=== PATIENT | female | born 1955 | race Caucasian/White ===

== ENCOUNTER 2022-12-16 09:36 | Outpatient (OUT) | payer MEDICARE, SELFPAY ==
[2022-12-16 11:54] LABS: Thyroid Stimulating Hormone 1.425 uIU/mL (0.358-3.740)
== END 2022-12-16 09:37 | disposition home or self-care (01) ==
LOC: LAB 09:39
PROVIDERS: PCP Family Medicine; Visit Provider Family Medicine
DX: L65.9 Nonscarring hair loss, unspecified (principal); R63.4 Abnormal weight loss
CPT/HCPCS: 36415; 84443

== ENCOUNTER 2023-02-27 10:32 | Outpatient (OUT) | payer MEDICARE, SELFPAY ==
[2023-02-27 11:46] LABS: Thyroid Stimulating Hormone 1.983 uIU/mL (0.358-3.740)
[2023-03-03 13:07] LABS: Methylmalonic Acid, Serum 164 nmol/L (0-378)
== END 2023-02-27 10:33 | disposition home or self-care (01) ==
LOC: LAB 10:36
PROVIDERS: PCP Family Medicine
DX: R41.3 Other amnesia (principal)
CPT/HCPCS: 36415; 82607; 82746; 83921; 84443

== ENCOUNTER 2023-03-19 07:33 | Outpatient (OUT) | payer MEDICARE, SELFPAY ==
--- NOTE | 2023-03-19 07:37 | MR_ITS ---
The [address] [address] Patient Name: ALETHA LIN MRN: [id number] date: 1955 Sex: F Assigned Patient Location: MRI Current Patient Location: MRI Accession/Order Number: [id number] Exam Date: 03/19/2023 07:45 Report Date: 03/19/2023 08:24 At the request of: LAUREN WHITE Procedure: MR head/brain wo con MR head/brain wo con, 03/19/2023 7:45 AM EST INDICATION: Post Concussion Syndrome, Memory Changes, Frequent Headaches COMPARISON: There is no appropriate prior study for comparison. TECHNIQUE: Multiplanar, multisequential MRI images of brain were obtained without injection of contrast. FINDINGS: The cerebral sulci as well as ventricular system are appropriate for age. There is no restricted diffusion. Hyperintensities on T2 and FLAIR images in the haroon and land radiata and centrum semiovale with sparing of U fibers are nonspecific, statistically most likely consistent with microvascular ischemic changes. There is no intracranial mass, mass effect, midline shift, intra or extra-axial fluid collection or large hemorrhage. Normal flow-void in the intracranial vessels is noted. The visualized portions of orbits, mastoid air cells as well as paranasal sinuses are unremarkable. There is status post bilateral lens replacement. MR/MR head/brain wo con IMPRESSION: No acute intracranial process is noted. Moderate microvascular ischemic changes. Electronically authenticated by: ZEESHAN PALACIOS Date: 03/19/2023 08:24
== END 2023-03-19 07:34 | disposition home or self-care (01) ==
LOC: MRI 07:33
PROVIDERS: PCP Family Medicine
DX: R51.9 Headache, unspecified (principal); F07.81 Postconcussional syndrome; R41.3 Other amnesia
CPT/HCPCS: 70551

== ENCOUNTER 2023-06-23 10:16 | Outpatient (OUT) | payer MEDICARE, SELFPAY ==
--- OUTSIDE RECORDS SUMMARY | 2023-06-23 10:24 | XMS_ITS | CCD ---
Author Name Unknown Address [address] [place] [address] Organization [facility] Care Team Providers Care Quality Tech Name Role Phone Desire Poole Unavailable [phone] DESIRE POOLE Unavailable Unavailab CHIKI Bagley Unavailable Autumn vailable CHIKI POOLE Unavailable Autumn vailable DESIRE POOLE Unavailable Unavailab le HAY, AMI Unavailable Unavailable HAY, AMI Unavailable Unavailable UNKNOWN, PROVIDER Unavailable Unavailable DESIRE POOLE Unavailable Unavailable ISIDRO LLOYD Unavailable Unavailable QUETAISIDRO Gurorla KRISTOPHER Unavailable Unavailable DESIRE POOLE Unavailable Unavailab le QUETAISIDRO KRISTOPHER Unavailable Unavailable RICKY SORIA Unavailable Unavailable ISIDRO LLOYD KRISTOPHER Unavailable Unavailable DESIRE POOLE Unavailable Unavailab DESIRE Bagley Unavailable Unavailab le Queta, J Kristopher Unavailable Unavailable Queta, J Kristopher Unavailable Unavailable Queta, J Kristopher Unavailable Unavailable Queta, J Kristopher Unavailable Unavailable Kovolyan, Payton K Unavailable NON-PATIENT FAIRS, BUCYRUS Unavailable Unava ilable NON-PATIENT FAIRS, BUCYRUS Unavailable Unava ilable KOVOLYAN, PAYTON K Unavailable Unavailable KOVOLYAN, PAYTON K Unavailable Unavailable RODRIGO CULP Unavailable Unavailable Kovolyan, Payton K Primary Care Provider KOVOLYAN, PAYTON K Attending Unavailable KOVOLYAN, PAYTON K Referring Unavailable KOVOLYAN, PAYTON K Attending Unavailable KOVOLYAN, PAYTON K Referring Unavailable KOVOLYAN, PAYTON K Attending Unavailable KOVOLYAN, PAYTON K Referring Unavailable KOVOLYAN, PAYTON K Attending Unavailable KOVOLYAN, PAYTON K Referring Unavailable KOVOLYAN, PAYTON K Primary Care Unavailable Karen Cardoso Primary Care Provider Chiki Poole Primary Care Provid er KAREN CARDOSO Primary Care Unavailable MARIAH, JAQUELINE Attending Unavailable Walker, Karen Unavailable DO Karen Cardoso Primary Care Provider [phone] MD Finn Ortez II Attending Provider Finn Ortez II Unavailable REQUEST, NONE LISTED Consulting Unavaila ble GIRAUSTEN, DR JONES Primary Care Unavailable GIRVIN, DR JONES Attending Unavailable GIRVIN, DR JONES Admitting Unavailable GIRVIN, DR JONES Primary Care Unavailable GIRVIN, DR JONES Consulting Unavailable GIRVIN, DR JONES Attending Unavailable GIRVIN, DR JONES Admitting Unavailable GIRVIN, DR JONES Primary Care Unavailable GIRVIN, DR JONES Consulting Unavailable GIRVIN, DR JONES Attending Unavailable GIRVIN, DR JONES Admitting Unavailable GIRVIN, DR JONES Primary Care Unavailable CARLOTA ., ROWENA Admitting Unavailable CARLOTA ., ROWENA Consulting Unavailable CARLOTA ., ROWENA Attending Unavailable KLRENATA, KAREN Consulting Unavailable ITKIN, DONYA Consulting Unavailable FRIEDMAN, ALMA Consulting Unavailable REQUEST, NONE LISTED Admitting Unavaila ble REQUEST, NONE LISTED Consulting Unavaila ble REQUEST, NONE LISTED Attending Unavaila ble WALKER, DR JONES Primary Care Unavailable REQUEST, NONE LISTED Admitting Unavaila ble REQUEST, NONE LISTED Consulting Unavaila ble REQUEST, NONE LISTED Attending Unavaila ble WALKER, DR JONES Primary Care Unavailable Walker, DO Jones Primary Care Provider [phone] MD Floyd Hampton Attending Provider [phone] MD Finn Ortez II Attending Provider [phone] Finn Ortez II Admitting UnavailFinn Pandya II Attending Unavailabl e Karen Cardoso Primary Care Unavailable Finn Ortez II Attending Unavailabl e Karen Cardoso Primary Care Unavailable Finn Ortez II Admitting Unavailgeoffrey e Walker, Karen Primary Care Unavailable Floyd Hampton Admitting Unavailab Floyd Solis Attending UnavailSHERYL Roldan Attending Unavailable KAREN CARDOSO Referring Unavailable Allergies Allergy Classification Reported Allergen(s) Allergy Type Date of Onset Reaction(s) Facility (20 sources) acetaminophen / oxyCODONE; Translations: [OXYCODONE-ACETAM INOPHEN] Drug Allergy 5 Itching [facility] (20 sources) Acetaminophen / oxyCODONE; Translations: [Percocet] Drug Allergy 3 [facility] (19 sources) DULoxetine Drug Allergy headaches [employer] [facility] Other (19 sources) FLUoxetine Drug Allergy doesn't work [employer] [facility] Other (3 sources) Acetaminophen; Translations: [acetaminophen] Drug Allergy 4 [facility] (3 sources) DULoxetine; Translations: [duloxetine] Drug Allergy 4 [facility] (3 sources) FLUoxetine; Translations: [fluoxetine] Drug Allergy [address] [facility] (3 sources) oxyCODONE; Translations: [oxycodone] Drug Allergy 4 [facility] Medications Current Medications Medication Drug Class(es) Dates Sig (Normalized) Sig (Original) 0.5 ml bordetella pertussis filamentous hemagglutinin vaccine, inactivated 0.016 mg/ml / bordetella pertussis pertactin vaccine, inactivated 0.005 mg/ml / bordetella pertussis toxoid vaccine, inactivated 0.016 mg/ml / diphtheria toxoid vaccine, inactivated 5 unt/ml / tetanus toxoid vaccine, inactivated 10 unt/ml prefilled syringe (7 sources) Inactivated Corynebacterium Diphtheriae Vaccine, Inactivated Clostridium Tetani Vaccine Start: 03-10-2017 BOOSTRIX TDAP 2.5-8-5 Lf-mcg-Lf/0.5mL Syrg Inject 1 mL into the shoulder, thigh, or buttocks once. 03/10/2017 Active ascorbic acid 500 mg oral tablet (16 sources) Vitamin C take 1 tablet by mouth every month ascorbic acid 500 MG Tab take 500 mg by mouth.. 0 Active atorvastatin 10 mg oral tablet (4 sources) HMG-CoA Reductase Inhibitor Start: 12-06-2021 take 1 tablet by mouth every twenty-four hours Atorvastatin Calcium 10 MG 1 tablet Orally Once a day Nov, Active busPIRone hydrochloride 10 mg oral tablet (18 sources) Start: 03-30-2018 End: 05-11-2018 take 1 tablet by mouth three times daily as needed busPIRone 10 MG Tab tablet Indications: Anxiety Take 1 tablet by mouth 3 times daily as needed. 90 tablet 1 05/11/2018 Active Start: 03-03-2018 End: 03-30-2018 take 1 tablet by mouth three times daily busPIRone 5 MG Tab Indications: Anxiety Take 1 tablet by mouth 3 times daily. 60 tablet 0 03/03/2018 03/30/2018 Discontinued Calcium (20 sources) Phosphate Binder, Calcium Calciu m Active Calcium 150 MG T ab Take by mouth daily. 0 Active take 1 tablet by mouth once andrey y Calcium 150 MG Tab Take by mouth daily. Active dexamethasone 1 mg/ml / tobramycin 3 mg/ml ophthalmic suspension (5 sources) Aminoglycoside Antibacterial, Corticosteroid Start: 07-27-2018 End: 08-03-2018 tobramycin-dexamethasone 0.3-0.1 % Suspension 2 drops to bilateral ears tid 1 Bottle 0 07/27/2018 Active estradiol 0.01 mg vaginal tablet (8 sources) Estrogen Start: 06-09-2017 YUVAFEM 10 mcg Tab Insert 1 (one) tablet (10 mcg total) into the vagina once a week. 12 tablet 0 06/09/2017 Active estrogens, conjugated ([facility]) 0.625 mg/ml vaginal cream (16 sources) Estrogen Start: 02-17-2020 Premarin 0.625 MG/GM Cream INSERT 0.5 GRAM VAGINALLY AT BEDTIME FOR 2 WEEKS THEN 2 TO 3 TIMES A WEEK THERAFTER 0 02/17/2020 Active Premarin 0.625 M G/GM Vaginal for 30 Not-Taking FLUoxetine 40 mg oral capsule (10 sources) Serotonin Reuptake Inhibitor Start: 05-27-2017 End: 05-27-2018 take 1 capsule by mouth once daily FLUoxetine (PROZAC) 40 MG capsule Indications: Anxiety , Depression, unspecified depression type Take 1 (one) capsule (40 mg total) by mouth daily. 30 capsule 11 05/27/2017 05/27/2018 Active End: 03-26-2018 take 2 capsules by mouth once daily fluoxetine 20 MG Cap capsule Take 40 mg by mouth daily. 03/26/2018 Discontinued lamoTRIgine 100 mg oral tablet (20 sources) Mood Stabilizer, Anti-epileptic Agent Start: 06-13-2023 take 100 mg by mouth once daily Lamotrigine Active 100 MG PO Daily June 13, 2023 12:00am Start: 03-29-2020 take 1 tablet by anam once daily lamoTRIgine 100 MG tablet Take 100 mg by mouth daily. 0 03/29/2020 Active meloxicam 15 mg oral tablet (2 sources) Nonsteroidal Anti-inflammatory Drug Start: 06-13-2023 take 15 mg by mouth once daily Meloxicam Active 15 MG PO Daily 30 30 June 13, 2023 12:00am MULTIPLE VITAMIN PO (16 sources) MULTIPLE VITAMIN PO take by mouth.. 0 Active MULTIPLE VITAMIN PO take by mouth.. Active Multivitamin preparation (19 sources) Multivitamin Act esteban sildenafil 100 mg oral tablet (20 sources) Phosphodiesterase 5 Inhibitor Start: 03-31-20 18 take 1 tablet by mouth once daily as needed sildenafil (VIAGRA) 100 MG tablet Take 1 (one) tablet (100 mg total) by mouth daily as needed . 10 tablet 1 03/31/2018 Active simvastatin 20 mg oral tablet (20 sources) HMG-CoA Reductase Inhibitor Start: 06-13-19 24 take 20 mg by mouth once daily Simvastatin Active 20 MG PO Daily June 13, 2023 12:00am Start: 09-08-2016 End: 03-30-2018 take 1 tablet by mouth once daily in the evening simvastatin 20 MG Tab tablet Take 1 tablet by mouth every evening at 6 PM. 90 tablet 3 03/30/2018 Active therapeutic multivitamin (THERAGRAN) tablet (1 source) take 1 tablet by mouth once daily therapeutic multivitamin (THERAGRAN) tablet Take 1 tablet by mouth daily. 0 Active Therapeutic Multivitamin Tablet (7 sources) take 1 tablet by mouth once daily therapeutic multivitamin (THERAGRAN) tablet Take 1 tablet by mouth daily. Active 24 hr venlafaxine 37.5 mg extended release oral capsule (20 sources) Serotonin and Norepinephrine Reuptake Inhibitor Start: 06-13-19 24 take 37.5 mg by mouth once daily Venlafaxine Active 37.5 MG PO Daily June 13, 2023 12:00am Start: 02-01-2020 take 1 capsule by mo [facility] once daily venlafaxine 37.5 MG Cap SR 24HR capsule XR Take 37.5 mg by mouth daily. 0 02/01/2020 Active vortioxetine 20 mg oral tablet (20 sources) Start: 03-30-2018 End: 05-11-2018 take 1 tablet by mouth once daily Vortioxetine HBr 20 MG Tab Indications: Anxiety Take 1 tablet by mouth daily. 90 tablet 2 05/11/2018 Active Start: 03-30-2018 End: 05-11-2018 take 2 tablets by mouth once daily, then take 0.5 tablet by mouth vortioxetine (TRINTELLIX) 10 MG Tab tablet Take 2 tablets by mouth daily. Lot [id number], Exp 02/14 28 tablet 0 03/30/2018 05/11/2018 Discontinued Start: 03-03-2018 End: 03-30-2018 take 1 tablet by mouth once daily vortioxetine (TRINTELLIX) 10 MG Tab tablet Take 1 tablet by mouth daily. 30 tablet 2 03/26/2018 03/30/2018 Discontinued Start: 03-03-2018 End: 03-26-2018 take 1 tablet by mouth once daily, then take 0.4 tablet by mouth Vortioxetine HBr (TRINTELLIX) 5 MG Tab Take 1 tablet by mouth daily. Lot [id number], exp 12/15 14 tablet 03/03/2018 03/26/2018 Discontinued Completed/Discontinued Medications Medication Drug Class(es) Dates Sig (Normalized) Sig (Original) ALPRAZolam 0.25 mg oral tablet (5 sources) Benzodiazepine End: 03-30-2018 ALPRAZolam 0.25 MG Tab tablet Take 0.5 mg by mouth as needed for Sleep. 03/30/2018 Discontinued bupivacaine hydrochloride 5 mg/ml injectable solution (2 sources) Amide Local Anesthetic Start: 05-02-2020 End: 05-02-2020 bupivacaine (MARCAINE) 0.5 % injection 1 mL 1 ml dexamethasone phosphate 4 mg/ml injection (2 sources) Corticosteroid Start: 05-02-2020 End: 05-02-2020 dexAMETHasone (DECADRON) injection 4 mg 10 ml lidocaine hydrochloride 10 mg/ml injection (2 sources) Antiarrhythmic, Amide Local Anesthetic Start: 05-02-2020 End: 05-02-2020 lidocaine (XYLOCAINE) 10 mg/mL injection 4 mL ondansetron 4 mg disintegrating oral tablet (7 sources) Serotonin-3 Receptor Antagonist Start: 09-02-2022 Ondansetron 4 MG dissolve 1 tablet on the tongue Orally q8-12 hours prn August, Not-Taking/PRN penicillin v potassium 250 mg oral tablet (4 sources) End: 05-11-2018 take 1 tablet by mouth four times daily penicillin v potassium 250 MG Tab Take 250 mg by mouth 4 times daily. 05/11/2018 Discontinued 10 ml sodium chloride 9 mg/ml injection (2 sources) Start: 05-02-2020 End: 05-02-2020 sodium chloride (PF) 0.9 % injection 5 mL triamcinolone acetonide 40 mg/ml injectable suspension (14 sources) Corticosteroid Start: 07-12-2022 Kenalog-40 Apr, 120 mg Start: 05-02-2020 End: 05-02-2020 triamcinolone (KENALOG-40) i njection 2 mL Problems Active Problems Problem Classification Problem Date Documented Da te Episodic/Chronic Anxiety disorders (20 sources) Anxiety; Translations: [Anxiety disorder, unspecified] Onset: 03-05-2016 03-05-2016 Chronic Delirium, dementia, and amnestic and other cognitive disorders (8 sources) Postconcussion syndrome; Translations: [Postconcussional syndrome] Chronic Diabetes mellitus without complication (4 sources) Hyperglycemia, unspecified Onset: 12-06-2021 Resolved: 12-06-2021 Episodic Diseases of white blood cells (20 sources) Leukocytosis; Translations: [Elevated white blood cell count, unspecified] Onset: 12-06-2021 Resolved: 12-06-2021 Chronic Disorders of lipid metabolism (20 sources) Hyperlipidemia; Translations: [Hyperlipidemia, unspecified] Onset: 03-05-2016 Resolved: 12-06-2021 03-05-2016 Chronic E Codes: Fall (1 source) Fall (on) (from) unspecified stairs and steps, initial encounter; Translations: [FALL ON FROM UNS STAIRS STEPS INIT] Onset: 08-28-2022 Episodic Fracture of upper limb (10 sources) Unspecified fracture of the lower end of right radius, initial encounter for closed fracture; Translations: [Closed fracture of distal end of radius] Onset: 10-08-2017 10-09-2017 Episodic Mood disorders (20 sources) Depressive disorder; Translations: [Recurrent major depression in partial remission] Onset: 10-05-2015 Resolved: 12-06-2021 10-05-2015 Chronic Mood disorders (2 sources) Major depressive disorder, single episode, unspecified; Translations: [Major depressive disorder, single episode, unspecified] Onset: 10-05-2015 Osteoarthritis (18 sources) Osteoarthritis of right hip joint; Translations: [Unilateral primary osteoarthritis, right hip] Chronic Osteoarthritis (3 sources) Osteoarthritis of right hip joint; Translations: [Primary osteoarthritis of right hip] Other aftercare (8 sources) 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; Translations: [OTH SPEECH AND HEARING CLINIC DIRECTOR CURRENT DRUG THERAPY] Onset: 02-07-2022 Episodic Other connective tissue disease (7 sources) Presence of unspecified artificial hip joint; Translations: [Status post hip replacement] Onset: 09-25-2016 09-25-2016 Chronic Other connective tissue disease (5 sources) Trochanteric bursitis; Translations: [Trochanteric bursitis, right hip] 06-12-2023 Episodic Other connective tissue disease (5 sources) Trochanteric bursitis, right hip; Translations: [Enthesopathy of hip region] Episodic Other ear and sense organ disorders (2 sources) Decreased hearing ; Translations: [Unspecified hearing loss, unspecified ear] Chronic Other gastrointestinal disorders (19 sources) Irritable bowel syndrome; Translations: [Irritable bowel syndrome without diarrhea] Chronic Other injuries and conditions due to external causes (3 sources) Unspecified injury of head, initial encounter; Translations: [UNSPECIFIED INJURY HEAD INITIAL ENC] Onset: 08-27-2022 Episodic Other injuries and conditions due to external causes (1 source) Other specified injuries of head, initial encounter; Translations: [OTH SPEC INJURIES HEAD INITIAL ENC] Onset: 08-28-2022 Episodic Other non-traumatic joint disorders (2 sources) Pain in left wrist; Translations: [Pain in left wrist] Onset: 10-08-2017 Episodic Other non-traumatic joint disorders (2 sources) Pain in unspecified hip Onset: 12-06-2021 Resolved: 12-06-2021 Episodic Other non-traumatic joint disorders (2 sources) Pain in right hip Episodic Other non-traumatic joint disorders (1 source) Pain in left hip; Translations: [PAIN IN LEFT HIP] Onset: 08-28-2022 Episodic Other non-traumatic joint disorders (2 sources) Pain in right hip joint; Translations: [Right hip pain] Other nutritional; endocrine; and metabolic disorders (2 sources) Abnormal weight loss Onset: 12-06-2021 Resolved: 12-06-2021 Episodic Other nutritional; endocrine; and metabolic disorders (1 source) Abnormal weight gain Episodic Other skin disorders (1 source) Nonscarring hair loss, unspecified Episodic Residual codes; unclassified (6 sources) Amnesia; Translations: [Other amnesia] Episodic Residual codes; unclassified (1 source) Other amnesia Episodic Residual codes; unclassified (1 source) Decreased libido Episodic Superficial injury; contusion (4 sources) Contusion of right wrist, initial encounter; Translations: [Contusion of scalp, initial encounter] Onset: 09-15-2017 Episodic Unclassified (3 sources) Closed fracture of distal end of right radius, unspecified fracture morphology, initial encounter; Translations: [Closed fracture of right distal radius] Onset: 10-09-2017 10-09-2017 Unclassified (2 sources) Ear Pain; Translations: [Ear Pain] Onset: 07-27-2018 Unclassified (2 sources) Medication Refill; Translations: [Medication Refill] Onset: 03-30-2018 Unclassified (2 sources) Establish Care; Translations: [Establish Care] Onset: 03-03-2018 Unclassified (1 source) History of repair of hip joint; Translations: [Status post hip replacement] Onset: 09-25-2016 09-25-2016 Unclassified (1 source) Unilateral primary osteoarthritis, right hip; Translations: [Unilateral primary osteoarthritis, right hip] Onset: 06-13-2023 Unclassified (1 source) Pain in right hip; Translations: [Pain in right hip] Onset: 07-12-2022 Past or Other Problems Problem Classification Problem Date Documented Da te Episodic/Chronic Abdominal pain (16 sources) Pain in female pelvis; Translations: [Female pelvic pain] Onset: 10-23-2016 10-23-2016 Episodic Medical examination/evaluation (1 source) Laboratory examination, unspecified; Translations: [Laboratory examination, unspecified] Onset: 12-13-2014 Episodic Other ear and sense organ disorders (1 source) Acute otitis externa; Translations: [Acute swimmer's ear of both sides] Episodic Unclassified (7 sources) Encounter for screening mammogram for malignant neoplasm of breast; Translations: [Encounter for screening, unspecified] Onset: 11-07-2016 Episodic Unclassified (1 source) Left wrist pain Unclassified (1 source) Encounter for screening mammogram for malignant neoplasm of breast; Translations: [Encounter for screening mammogram for malignant neoplasm of breast] Onset: 11-07-2016 Unclassified (1 source) Laboratory examination, unspecified; Translations: [Laboratory examination, unspecified] Onset: 12-13-2014 Unclassified (1 source) Patient encounter status Results Test Name Value Interpretation Reference Range Facility XR hip RT min 2V(w/wo pelvis )*on 06-13-2023 XR hip RT min 2V(w/wo pelvis)* [facility] [place] [address] [place] [address] XRay Report Signed Patient: Antonino Torres MR#: [id number] : 1955 Acct:[id number] Age/Sex: 67 / F ADM Date: 06/13/23 Loc: [facility] Room: Type: [facility] Attending Dr: Finn Ortez II, MD Copies to: Finn Ortez MD Ordering Provider: Finn Ortez MD Date of Service: 06/13/23 XR/XR hip RT min 2V(w/wo pelvis)*: M16.11 - Unilateral primary osteoarthritis, right hip AP LOW PELVIS AND RIGHT HIP - 2 views: CLINICAL HISTORY: Worsening right hip and groin pain. COMPARISON: 07/12/2022 AP weightbearing view of the low pelvis and crosstable lateral view of the right hip were obtained. A left hip prosthesis is again visualized. The hardware appears intact and unchanged from the prior. There is no evidence of fracture or dislocation. There is slight narrowing of the superior hip joint space on the right. There is mild subchondral cystic change and marginal spurring at the femoral head and superior acetabulum laterally. There are enthesophytes at the iliac crests and greater trochanters. There is mild sclerosis at the SI joints. There is also degenerative change involving the imaged lumbosacral junction. There are no significant soft tissue abnormalities. XR/XR hip RT min 2V(w/wo pelvis)* IMPRESSION: DEGENERATIVE CHANGE AT THE RIGHT HIP. STABLE LEFT HIP PROSTHESIS. Impression dictated by: Silvina Rolon M.D.06/13/2023 12:57 PM Dictation Location: [place] [address] Transcribed By: [facility] 06/13/23 1257 Dictated By: Silvina Rolon MD 06/13/23 1255 Signed By: 06/13/[address] [facility] [address] CSPINE WO CONon CT CSPINE WO CON EXAMINATION: CT [facility]SPI NE WO CON, 08/27/2022 1:18 PM PDT HISTORY: UNSPECIFIED INJURY OF HEAD, INITIAL ENCOUNTER TECHNIQUE: Helical CT of the cervical spine was obtained without contrast. Axial, coronal, and sagittal sequences were reconstructed. Dose reduction technique was used including one or more of the following: automated exposure control, iterative reconstruction technique, or adjustment of mA and kV according to patient size. COMPARISON: 11/01/2009 FINDINGS: No evidence of acute fracture or subluxation. Minimal multilevel listhesis associated with degenerative changes. No prevertebral swelling. There is age-expected degenerative disc disease and facet arthrosis. There is mild multilevel narrowing of the spinal canal and neural foramina without CT evidence of a severe focal stenosis. Moderate to severe multilevel and bilateral neural foraminal stenoses. No acute or suspicious findings in the included soft tissues of the neck or lung apices. IMPRESSION: 1. No evidence of acute cervical spine injury. Electronically authenticated by: DONYA BIGGS Date: 2022-08-27 17:05 Normal [facility] CT HEAD WO CONon 08-27-2022 CT HEAD WO CON TITLE: CT HEAD WO CON COMPARISON: None. CLINICAL HISTORY: Head injury TECHNIQUE: 3 mm axial images without contrast. Automated exposure control was utilized. Dose reduction techniques were achieved by using automated exposure control and/or adjustment of mA and/or kV according to patient size and/or use of iterative reconstruction technique. FINDINGS: There is no mass, mass effect, parenchymal hemorrhage, nor subarachnoid hemorrhage. The extra-axial and extracranial structures appear normal. The CSF spaces are unremarkable. There is a 5 cm hematoma in the right occipital soft tissues. The skeletal structures are intact. IMPRESSION: NO ACUTE INTRACRANIAL FINDINGS BY CT HEAD WITHOUT CONTRAST PROMINENT OCCIPITAL SCALP HEMATOMA Electronically authenticated by: ALMA FRIEDMAN Date: 2022-08-27 17:02 Normal [facility] XR HIP LT 2 3V W PELVISon XR HIP LT 2 3V W PELVIS EXAM: XR HIP LT 2 3V W PELVIS HISTORY: Fall down steps COMPARISON: X-rays 09/14/2016 TECHNIQUE: AP pelvis and 2 views of the left FINDINGS: No fracture, dislocation, subluxation or osseous lesion. Patient is status post left total hip replacement arthroplasty. Prosthesis exhibits no gross abnormality. Enthesophytes off the greater trochanteric tendinous insertions. IMPRESSION: No acute abnormality Electronically authenticated by: KAREN CANO Date: 2022-08-27 17:40 Normal [facility] XR hip RT min 2V(w/wo pelvis )*on 07-12-2022 XR hip RT min 2V(w/wo pelvis)* [facility] [place] [address] [place] [address] XRay Report Signed Patient: Antonino Torres MR#: [id number] : 1955 Acct:[id number] Age/Sex: 66 / F ADM Date: 07/12/22 Loc: [facility] Room: Type: [facility] Attending Dr: Finn Ortez II, MD Copies to: Finn Ortez MD Ordering Provider: Finn Ortez MD Date of Service: 07/12/22 XR/XR hip RT min 2V(w/wo pelvis)*: Right hip pain XR hip RT min 2V(w/wo pelvis)* 07/12/2022 10:08 AM SIGNS AND SYMPTOMS: Right hip pain, right inguinal pain PROTOCOL: Frontal radiograph the pelvis with crosstable lateral view of the right hip COMPARISON: None FINDINGS: 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 There is no hardware complication or malalignment. The bony ring of the pelvis is grossly intact. Degenerative changes are noted in the lumbar spine and sacroiliac joints. There is enthesophyte formation at the greater trochanters and iliac wings. There is mild narrowing of the right hip joint space. XR/XR hip RT min 2V(w/wo pelvis)* IMPRESSION: No fracture or dislocation. Multifocal degenerative change is noted, as above. Impression dictated by: Justen Jenkins M.D.07/12/2022 1:35 PM Dictation Location: [place] [address] Transcribed By: SAGAR 07/12/22 1335 Dictated By: Justen Jenkins II, MD 07/12/22 1333 Signed By: 07/12/[address] [facility] XR hip RT min 2V(w/wo pelvis)* [facility] [employer] Other XR hip RT min 2V(w/wo pelvis)* [facility] [place] [facility] [place] [employer] Other XR hip RT min 2V(w/wo pelvis)* [address] [employer] Other XR hip RT min 2V(w/wo pelvis)* [place] [address] [employer] Other XR hip RT min 2V(w/wo pelvis)* XRay Report [employer] Other XR hip RT min 2V(w/wo pelvis)* Signed [employer] Other XR hip RT min 2V(w/wo pelvis)* Patient: Antonino Torres MR#: [id number] [employer] Other XR hip RT min 2V(w/wo pelvis)* [id number] [employer] Other XR hip RT min 2V(w/wo pelvis)* : 1955 Acct:[id number] [employer] Other XR hip RT min 2V(w/wo pelvis)* Age/Sex: 66 / F ADM Date: 07/12/22 [employer] Other XR hip RT min 2V(w/wo pelvis)* Loc: [facility]XD Room: Type: [facility] [employer] Other XR hip RT min 2V(w/wo pelvis)* Attending Dr: Finn Ortez II, MD [employer] Other XR hip RT min 2V(w/wo pelvis)* Copies to: Finn Ortez MD [employer] Other XR hip RT min 2V(w/wo pelvis)* Ordering Provider: Finn Ortez MD [employer] Other XR hip RT min 2V(w/wo pelvis)* Date of Service: 07/12/22 [employer] Other XR hip RT min 2V(w/wo pelvis)* XR/XR hip RT min 2V(w/wo pelvis)*: Right hip pain [employer] Other XR hip RT min 2V(w/wo pelvis)* XR hip RT min 2V(w/wo pelvis)* 07/12/2022 10:08 AM [employer] Other XR hip RT min 2V(w/wo pelvis)* SIGNS AND SYMPTOMS: Right hip pain, right inguinal pain [employer] Other XR hip RT min 2V(w/wo pelvis)* PROTOCOL: Frontal radiograph the pelvis with crosstable lateral view of the right hip [employer] Other XR hip RT min 2V(w/wo pelvis)* COMPARISON: None [employer] Other XR hip RT min 2V(w/wo pelvis)* FINDINGS: [employer] Other XR hip RT min 2V(w/wo pelvis)* 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 There is no hardware complication or malalignment. [employer] Other XR hip RT min 2V(w/wo pelvis)* The bony ring of the pelvis is grossly intact. Degenerative changes are noted in the lumbar spine [employer] Other XR hip RT min 2V(w/wo pelvis)* and sacroiliac joints. There is enthesophyte formation at the greater trochanters and iliac wings. [employer] Other XR hip RT min 2V(w/wo pelvis)* There is mild narrowing of the right hip joint space. [employer] Other XR hip RT min 2V(w/wo pelvis)* XR/XR hip RT min 2V(w/wo pelvis)* [employer] Other XR hip RT min 2V(w/wo pelvis)* IMPRESSION: [employer] Other XR hip RT min 2V(w/wo pelvis)* No fracture or dislocation. [employer] Other XR hip RT min 2V(w/wo pelvis)* Multifocal degenerative change is noted, as above. [employer] Other XR hip RT min 2V(w/wo pelvis)* Impression dictated by: Justen Jenkins M.D.07/12/2022 1:35 PM [employer] Other XR hip RT min 2V(w/wo pelvis)* Dictation Location: [place] [address] [employer] Other XR hip RT min 2V(w/wo pelvis)* Transcribed By: SAGAR 07/12/22 [facility] [employer] Other XR hip RT min 2V(w/wo pelvis)* Dictated By: Justen Jenkins II, MD 07/12/22 [facility] [employer] Other XR hip RT min 2V(w/wo pelvis)* Signed By: [employer] Other XR hip RT min 2V(w/wo pelvis)* 07/12/22 [facility] [employer] Other CBC AUTO DIFFon 03-12-2022 BASO # 0.1 103/ul Normal 0.0-0.1 [facility] Comment on above: Performed By: #### D ATCBC #### [facility] [address] [place], [place] [address] Dr. David Phillips Basophils/100 WBC (Bld) 1.0 % Normal 0.2-2.0 [facility] Comment on above: Performed By: #### D ATCBC #### [facility] [address] [place] [address] [address] David Phillips EO # 0.2 103/ul Normal 0.0-0.7 [facility] Comment on above: Performed By: #### D ATCBC #### [facility] [address] [place] [address] Dr. Dvaid Phillips Eosinophils/100 WBC (Bld) 3.7 % Normal 0.9-7.0 [facility] Comment on above: Performed By: #### D ATCBC #### [facility] [address] [place] [address] Dr. David Phillips Erythrocyte distribution width (RBC) [Ratio] 13.1 % Normal 11.0-15.0 [facility] Comment on above: Performed By: #### D ATCBC #### [facility] [address] [place] [address] Dr. David Phillips Hematocrit (Bld) [Volume fraction] 41.6 % Normal 36.0-48.0 [facility] Comment on above: Performed By: #### D ATCBC #### [facility] [address] [place] [address] Dr. David Phillips Hemoglobin (Bld) [Mass/Vol] 13.6 g/dL Normal 12.0-16.0 [facility] Comment on above: Performed By: #### D ATCBC #### [facility] [address] [place] [address] Dr. David Phillips IG # 0.01 10e3/ul Normal 0.00-0.03 [facility] Comment on above: Performed By: #### D ATCBC #### [facility] [address] [place] [address] Dr. David Phillips IG % 0.2 % Normal 0.0-0.5 [facility] Comment on above: Performed By: #### D ATCBC #### [facility] [address] [place] [address] Dr. David Phillips LYMPH # 1.7 103/ul Normal 1.2-3.8 [facility] Comment on above: Performed By: #### D ATCBC #### [facility] [address] [place] [address] Dr. David Phillips Lymphocytes/100 WBC (Bld) 29.0 % Normal 20.5-60.0 [facility] Comment on above: Performed By: #### D ATCBC #### [facility] [address] [place] [address] Dr. David Phillips MCH (RBC) [Entitic mass] 28.9 pg Normal 26.7-34.0 [facility] Comment on above: Performed By: #### D ATCBC #### [facility] [address] [place] [address] Dr. David Phillips MCHC (RBC) [Mass/Vol] 32.7 g/dL Normal 29.9-35.2 [facility] Comment on above: Performed By: #### D ATCBC #### [facility] [address] [place] [address] Dr. David Phillips MCV (RBC) [Entitic vol] 88.3 fL Normal 81.0-99.0 [facility] Comment on above: Performed By: #### D ATCBC #### [facility] [address] [place] [address] Dr. David Phillips MONO # 0.5 103/ul Normal 0.3-0.8 [facility] Comment on above: Performed By: #### D ATCBC #### [facility] [address] [place] [address] Dr. David Phillips Monocytes/100 WBC (Bld) 7.7 % Normal 1.7-12.0 [facility] Comment on above: Performed By: #### D ATCBC #### [facility] [address] [place] [address] Dr. David Phillips NEUT # 3.4 103/ul Normal 1.4-6.5 [facility] Comment on above: Performed By: #### D ATCBC #### [facility] [address] [place] [address] Dr. David Phillips Neutrophils/100 WBC (Bld) 58.4 % Normal 43.0-75.0 [facility] Comment on above: Performed By: #### D ATCBC #### [facility] [address] [place] [address] [address] David Phillips Platelet mean volume (Bld) [Entitic vol] 9.0 fL Critically low 9.5-13.5 [facility] Comment on above: Performed By: #### D ATCBC #### [facility] [address] [place] [address] [address] David Phillips PLT 273 103/ul Normal 150-450 [facility] Comment on above: Performed By: #### D ATCBC #### [facility] [address] [place] [address] [address] David Phillips RBC 4.71 106/ul Normal 4.20-5.40 [facility] Comment on above: Performed By: #### D ATCBC #### [facility] [address] [place] [address] Dr. David Phillips WBC 5.9 103/ul Normal 4.0-11.0 [facility] Comment on above: Performed By: #### D ATCBC #### [facility] [address] [place] [address] Dr. David Phillips BRIANNA- BMP WITH LIPIDon 2021 Anion gap [Moles/Vol] 6.8 mmol/L Normal [facility] Comment on above: Performed By: #### D ATCBC #### [facility] [address] [place] [address] Dr. David Phillips Calcium [Mass/Vol] 8.6 mg/dL Normal 8.5-10.1 [facility] Comment on above: Performed By: #### D ATCBC #### [facility] [address] [place] [address] Dr. David Phillips Chloride [Moles/Vol] 105 mmol/L Normal 98-107 [facility] Comment on above: Performed By: #### D ATCBC #### [facility] [address] [place] [address] Dr. David Phillips Cholesterol [Mass/Vol] 175 mg/dL Normal <=200 [facility] Comment on above: Performed By: #### D ATCBC #### [facility] [address] [place] [address] [address] David Phillips Cholesterol in HDL [Mass/Vol] 68 mg/dL Critically high 40-60 [facility] Comment on above: Performed By: #### D ATCBC #### [facility] [address] [place] [address] [address] David Phillips Cholesterol in LDL [Mass/Vol] 96.8 mg/dL Normal [facility] Comment on above: Performed By: #### D ATCBC #### [facility] [address] [place] [address] [address] David Phillips CO2 [Moles/Vol] 32.2 mmol/L Critically high 21.0-32.0 [facility] Comment on above: Performed By: #### D ATCBC #### [facility] [address] [place] [address] Dr. David Phillips Creatinine [Mass/Vol] 0.63 mg/dL Normal 0.55-1.02 [facility] Comment on above: Performed By: #### D ATCBC #### [facility] [address] [place] [address] [address] David Phillips EGFR-AF ZAMBIAN >60 Normal >=60 [facility] Comment on above: Performed By: #### D ATCBC #### [facility] [address] [place] [address] Dr. David Phillips EGFR-NON AF ZAMBIAN >60 Normal >=60 [facility] Comment on above: Performed By: #### D ATCBC #### [facility] [address] [place] [address] [address] David Phillips Glucose [Mass/Vol] 97 mg/dL Normal 74-106 [facility] Comment on above: Performed By: #### D ATCBC #### [facility] [address] [place] [address] [address] David Phillips HDL NORMAL > or = 60 mg/dl - LO W CARDIOVASCULAR RISK <40 mg/dl - HIGH CARDIOVASCULAR RISK Normal [facility] Comment on above: Performed By: #### D ATCBC #### [facility] [address] [place] [address] [address] David Phillips LDL CALC NORMAL SEE BELOW Normal [facility] Comment on above: Result Comment: <100 mg/dl OPTIMAL 100 - 129 mg/dl NEAR OR ABOVE OPTIMAL 130 - 159 mg/dl BORDERLINE HIGH 160 - 189 mg/dl HIGH >190 mg/dl VERY HIGH Performed By: #### D ATCBC #### [facility] [address] [place] [address] [address] David Phillips Potassium [Moles/Vol] 4.0 mmol/L Normal 3.5-5.1 [facility] Comment on above: Performed By: #### D ATCBC #### [facility] [address] [place] [address] [address] David Phillips Sodium [Moles/Vol] 140 mmol/L Normal 136-145 [facility] Comment on above: Performed By: #### D ATCBC #### [facility] [address] [place] [address] [address] David Phillips Triglyceride [Mass/Vol] 51 mg/dL Normal <=150 [facility] Comment on above: Performed By: #### D ATCBC #### [facility] [address] [place] [address] [address] David Phillips Urea nitrogen [Mass/Vol] 17.0 mg/dL Normal 7.0-18.0 [facility] Comment on above: Performed By: #### D ATCBC #### [facility] [address] [place] [address] [address] David Phillips Urea nitrogen/Creatinin e [Mass ratio] 27.0 mg/mg Normal [facility] Comment on above: Performed By: #### D ATCBC #### [facility] [address] [place] [address] [address] David Phillips VLDL CALC 10.2 mg/dL Normal [facility] Comment on above: Performed By: #### D ATCBC #### [facility] [address] [place] [address] [address] David Phillips CBC AUTO DIFFon 02-07-2022 BASO # 0.1 103/ul Normal 0.0-0.1 [facility] Comment on above: Performed By: #### D ATCBC #### [facility] [address] [place] [address] [address] David Phillips Basophils/100 WBC (Bld) 0.5 % Normal 0.2-2.0 [facility] Comment on above: Performed By: #### D ATCBC #### [facility] [address] [place] [address] Dr. David Phillips EO # 0.2 103/ul Normal 0.0-0.7 [facility] Comment on above: Performed By: #### D ATCBC #### [facility] [address] [place] [address] Dr. David Phillips Eosinophils/100 WBC (Bld) 1.4 % Normal 0.9-7.0 [facility] Comment on above: Performed By: #### D ATCBC #### [facility] [address] [place] [address] Dr. David Phillips Erythrocyte distribution width (RBC) [Ratio] 13.2 % Normal 11.0-15.0 [facility] Comment on above: Performed By: #### D ATCBC #### [facility] [address] [place] [address] Dr. David Phillips Hematocrit (Bld) [Volume fraction] 42.7 % Normal 36.0-48.0 [facility] Comment on above: Performed By: #### D ATCBC #### [facility] [address] [place] [address] Dr. David Phillips Hemoglobin (Bld) [Mass/Vol] 13.7 g/dL Normal 12.0-16.0 [facility] Comment on above: Performed By: #### D ATCBC #### [facility] [address] [place] [address] Dr. David Phillips IG # 0.04 10e3/ul Critically high 0.00-0.03 [facility] Comment on above: Performed By: #### D ATCBC #### [facility] [address] [place] [address] Dr. David Phillips IG % 0.4 % Normal 0.0-0.5 [facility] Comment on above: Performed By: #### D ATCBC #### [facility] [address] [place] [address] Dr. David Phillips LYMPH # 1.5 103/ul Normal 1.2-3.8 [facility] Comment on above: Performed By: #### D ATCBC #### [facility] [address] [place] [address] Dr. David Phillips Lymphocytes/100 WBC (Bld) 12.9 % Critically low 20.5-60.0 [facility] Comment on above: Performed By: #### D ATCBC #### [facility] [address] [place] [address] Dr. David Phillips MCH (RBC) [Entitic mass] 29.0 pg Normal 26.7-34.0 [facility] Comment on above: Performed By: #### D ATCBC #### [facility] [address] [place] [address] Dr. David Phillips MCHC (RBC) [Mass/Vol] 32.1 g/dL Normal 29.9-35.2 [facility] Comment on above: Performed By: #### D ATCBC #### [facility] [address] [place] [address] Dr. David Phillips MCV (RBC) [Entitic vol] 90.5 fL Normal 81.0-99.0 [facility] Comment on above: Performed By: #### D ATCBC #### [facility] [address] [place] [address] Dr. David Phillips MONO # 0.9 103/ul Critically high 0.3-0.8 [facility] Comment on above: Performed By: #### D ATCBC #### [facility] [address] [place] [address] Dr. David Phillips Monocytes/100 WBC (Bld) 7.5 % Normal 1.7-12.0 [facility] Comment on above: Performed By: #### D ATCBC #### [facility] [address] [place] [address] Dr. David Phillips NEUT # 8.8 103/ul Critically high 1.4-6.5 [facility] Comment on above: Performed By: #### D ATCBC #### [facility] [address] [place] [address] [address] David Phillips Neutrophils/100 WBC (Bld) 77.3 % Critically high 43.0-75.0 [facility] Comment on above: Performed By: #### D ATCBC #### [facility] [address] [place] [address] [address] David Phillips Platelet mean volume (Bld) [Entitic vol] 8.9 fL Critically low 9.5-13.5 [facility] Comment on above: Performed By: #### D ATCBC #### [facility] [address] [place] [address] [address] David Phillips PLT 283 103/ul Normal 150-450 [facility] Comment on above: Performed By: #### D ATCBC #### [facility] [address] [place] [address] [address] David Phillips RBC 4.72 106/ul Normal 4.20-5.40 [facility] Comment on above: Performed By: #### D ATCBC #### [facility] [address] [place] [address] [address] David Phillips WBC 11.4 103/ul Critically high 4.0-11.0 [facility] Comment on above: Performed By: #### D ATCBC #### [facility] [address] [place] [address] [address] David Phillips BRIANNA- BMP WITH LIPIDon 2021 Anion gap [Moles/Vol] 9.1 mmol/L Normal [facility] Comment on above: Performed By: #### D ATBMP #### [facility] [address] [place] [address] [address] David Phillips Calcium [Mass/Vol] 9.0 mg/dL Normal 8.5-10.1 [facility] Comment on above: Performed By: #### D ATBMP #### [facility] [address] [place] [address] [address] David Phillips Chloride [Moles/Vol] 103 mmol/L Normal 98-107 [facility] Comment on above: Performed By: #### D ATBMP #### [facility] [address] [place] [address] [address] David Phillips Cholesterol [Mass/Vol] 183 mg/dL Normal <=200 [facility] Comment on above: Performed By: #### D ATBMP #### [facility] [address] [place] [address] [address] David Phillips Cholesterol in HDL [Mass/Vol] 75 mg/dL Critically high 40-60 [facility] Comment on above: Performed By: #### D ATBMP #### [facility] [address] [place] [address] [address] David Phillips Cholesterol in LDL [Mass/Vol] 95.2 mg/dL Normal [facility] Comment on above: Performed By: #### D ATBMP #### [facility] [address] [place] [address] [address] David Phillips CO2 [Moles/Vol] 31.1 mmol/L Normal 21.0-32.0 [facility] Comment on above: Performed By: #### D ATBMP #### [facility] [address] [place] [address] [address] David Phillips Creatinine [Mass/Vol] 0.71 mg/dL Normal 0.55-1.02 [facility] Comment on above: Performed By: #### D ATBMP #### [facility] [address] [address] [address] David Phillips EGFR-AF ZAMBIAN >60 Normal >=60 [facility] Comment on above: Performed By: #### D ATBMP #### [facility] [address] [place] [address] [address] David Phillips EGFR-NON AF ZAMBIAN >60 Normal >=60 [facility] Comment on above: Performed By: #### D ATBMP #### [facility] [address] [address] [address] David Phillips Glucose [Mass/Vol] 108 mg/dL Critically high 74-106 [facility] Comment on above: Performed By: #### D ATBMP #### [facility] [address] [place] [address] [address] David Phillips HDL NORMAL > or = 60 mg/dl - LO W CARDIOVASCULAR RISK <40 mg/dl - HIGH CARDIOVASCULAR RISK Normal [facility] Comment on above: Performed By: #### D ATBMP #### [facility] [address] [address] [address] David Phillips LDL CALC NORMAL SEE BELOW Normal [facility] Comment on above: Result Comment: <100 mg/dl OPTIMAL 100 - 129 mg/dl NEAR OR ABOVE OPTIMAL 130 - 159 mg/dl BORDERLINE HIGH 160 - 189 mg/dl HIGH >190 mg/dl VERY HIGH Performed By: #### D ATBMP #### [facility] [address] [address] [address] David Phillips Potassium [Moles/Vol] 4.2 mmol/L Normal 3.5-5.1 [facility] Comment on above: Performed By: #### D ATBMP #### [facility] [address] [place] [address] Dr. David Phillips Sodium [Moles/Vol] 139 mmol/L Normal 136-145 [facility] Comment on above: Performed By: #### D ATBMP #### [facility] [address] [place] [address] Dr. David Phillips Triglyceride [Mass/Vol] 64 mg/dL Normal <=150 [facility] Comment on above: Performed By: #### D ATBMP #### [facility] [address] [address] [address] David Phillips Urea nitrogen [Mass/Vol] 15.0 mg/dL Normal 7.0-18.0 [facility] Comment on above: Performed By: #### D ATBMP #### [facility] [address] [place] [address] Dr. David Phillips Urea nitrogen/Creatinin e [Mass ratio] 21.1 mg/mg Normal [facility] Comment on above: Performed By: #### D ATBMP #### [facility] [address] [place] [address] Dr. David Phillips VLDL CALC 12.8 mg/dL Normal [facility] Comment on above: Performed By: #### D ATBMP #### [facility] [address] [place] [address] Dr. David Phillips GLYCOHEMOGLOBIN A1Con 2021 ADA RECOMMENDATION SEE BELOW Normal [facility] Comment on above: Result Comment: ADA RECOMMENDED LIMIT 4.0 - 6.0 ADA THERAPEUTIC TARGET < 7.0 ACTION SUGGESTED > 7.0 Performed By: #### D ATA1C #### [facility] [address] [place] [address] Dr. David Phillips Glucose [Mass/Vol] 111 mg/dL Normal [facility] Comment on above: Performed By: #### D ATA1C #### [facility] [address] [place] [address] Dr. David Phillips HbA1c (Bld) [Mass fraction] 5.5 % Normal 4.5-6.2 [facility] Comment on above: Performed By: #### D ATA1C #### [facility] [address] [place] [address] Dr. David Phillips SGOTon 02-07-2022 AST [Catalytic activity/Vol] 19 U/L Normal 15-37 [facility] Comment on above: Performed By: #### A LT, AST #### [facility] [address] [place] [address] Dr. David Phillips SGPTon 02-07-2022 ALT [Catalytic activity/Vol] 27 U/L Normal 14-59 [facility] Comment on above: Performed By: #### A LT, AST #### [facility] [address] [place] [address] Dr. David Phillips CBC AUTO DIFFon 11-28-2021 BASO # 0.0 103/ul Normal 0.0-0.1 [facility] Comment on above: Performed By: #### D ATCBC #### [facility] [address] [place] [address] Dr. David Phillips Basophils/100 WBC (Bld) 0.1 % Critically low 0.2-2.0 [facility] Comment on above: Performed By: #### D ATCBC #### [facility] [address] [place] [address] Dr. David Phillips EO # 0.0 103/ul Normal 0.0-0.7 [facility] Comment on above: Performed By: #### D ATCBC #### [facility] [address] [place] [address] Dr. David Phillips Eosinophils/100 WBC (Bld) 0.0 % Critically low 0.9-7.0 [facility] Comment on above: Performed By: #### D ATCBC #### [facility] [address] [place] [address] Dr. David Phillips Erythrocyte distribution width (RBC) [Ratio] 13.5 % Normal 11.0-15.0 [facility] Comment on above: Performed By: #### D ATCBC #### [facility] [address] [place] [address] Dr. David Phillips Hematocrit (Bld) [Volume fraction] 41.4 % Normal 36.0-48.0 [facility] Comment on above: Performed By: #### D ATCBC #### [facility] [address] [place] [address] Dr. David Phillips Hemoglobin (Bld) [Mass/Vol] 13.4 g/dL Normal 12.0-16.0 [facility] Comment on above: Performed By: #### D ATCBC #### [facility] [address] [place] [address] Dr. David Phillips IG # 0.07 10e3/ul Critically high 0.00-0.03 [facility] Comment on above: Performed By: #### D ATCBC #### [facility] [address] [place] [address] Dr. David Phillips IG % 0.5 % Normal 0.0-0.5 [facility] Comment on above: Performed By: #### D ATCBC #### [facility] [address] [place] [address] Dr. David Phillips LYMPH # 1.0 103/ul Critically low 1.2-3.8 [facility] Comment on above: Performed By: #### D ATCBC #### [facility] [address] [place] [address] Dr. David Phillips Lymphocytes/100 WBC (Bld) 7.1 % Critically low 20.5-60.0 [facility] Comment on above: Performed By: #### D ATCBC #### [facility] [address] [place] [address] Dr. David Phillips MCH (RBC) [Entitic mass] 28.8 pg Normal 26.7-34.0 [facility] Comment on above: Performed By: #### D ATCBC #### [facility] [address] [place] [address] Dr. David Phillips MCHC (RBC) [Mass/Vol] 32.4 g/dL Normal 29.9-35.2 [facility] Comment on above: Performed By: #### D ATCBC #### [facility] [address] [place] [address] Dr. David Phillips MCV (RBC) [Entitic vol] 88.8 fL Normal 81.0-99.0 [facility] Comment on above: Performed By: #### D ATCBC #### [facility] [address] [place] [address] Dr. David Phillips MONO # 0.3 103/ul Normal 0.3-0.8 [facility] Comment on above: Performed By: #### D ATCBC #### [facility] [address] [place] [address] Dr. David Phillips Monocytes/100 WBC (Bld) 1.9 % Normal 1.7-12.0 [facility] Comment on above: Performed By: #### D ATCBC #### [facility] [address] [place] [address] Dr. David Phillips NEUT # 12.9 103/ul Critically high 1.4-6.5 [facility] Comment on above: Performed By: #### D ATCBC #### [facility] [address] [place] [address] Dr. David Phillips Neutrophils/100 WBC (Bld) 90.4 % Critically high 43.0-75.0 [facility] Comment on above: Performed By: #### D ATCBC #### [facility] [address] [place] [address] Dr. David Phillips Platelet mean volume (Bld) [Entitic vol] 9.1 fL Critically low 9.5-13.5 [facility] Comment on above: Performed By: #### D ATCBC #### [facility] [address] [place] [address] Dr. David Phillips PLT 296 103/ul Normal 150-450 [facility] Comment on above: Performed By: #### D ATCBC #### [facility] [address] [place] [address] Dr. David Phillips RBC 4.66 106/ul Normal 4.20-5.40 [facility] Comment on above: Performed By: #### D ATCBC #### [facility] [address] [place] [address] Dr. David Phillips WBC 14.3 103/ul Critically high 4.0-11.0 [facility] Comment on above: Performed By: #### D ATCBC #### [facility] [address] [place] [address] Dr. David Phillips BRIANNA- BMP WITH LIPIDon 2021 Anion gap [Moles/Vol] 13.2 mmol/L Normal [facility] Comment on above: Performed By: #### D ATBMP #### [facility] [address] [place] [address] Dr. David Phillips Calcium [Mass/Vol] 9.0 mg/dL Normal 8.5-10.1 [facility] Comment on above: Performed By: #### D ATBMP #### [facility] [address] [place] [address] Dr. David Phillips Chloride [Moles/Vol] 105 mmol/L Normal 98-107 [facility] Comment on above: Performed By: #### D ATBMP #### [facility] [address] [place] [address] Dr. David Phillips Cholesterol [Mass/Vol] 191 mg/dL Normal <=200 [facility] Comment on above: Performed By: #### D ATBMP #### [facility] [address] [address] [address] David Phillips Cholesterol in HDL [Mass/Vol] 71 mg/dL Critically high 40-60 [facility] Comment on above: Performed By: #### D ATBMP #### [facility] [address] [address] [address] David Phillips Cholesterol in LDL [Mass/Vol] 107.4 mg/dL Normal [facility] Comment on above: Performed By: #### D ATBMP #### [facility] [address] [address] [address] David Phillips CO2 [Moles/Vol] 28.7 mmol/L Normal 21.0-32.0 [facility] Comment on above: Performed By: #### D ATBMP #### [facility] [address] [address] [address] David Phillips Creatinine [Mass/Vol] 0.62 mg/dL Normal 0.55-1.02 [facility] Comment on above: Performed By: #### D ATBMP #### [facility] [address] [address] [address] David Phillips EGFR-AF ZAMBIAN >60 Normal >=60 [facility] Comment on above: Performed By: #### D ATBMP #### [facility] [address] [address] [address] David Phillips EGFR-NON AF ZAMBIAN >60 Normal >=60 [facility] Comment on above: Performed By: #### D ATBMP #### [facility] [address] [address] [address] David Phillips Glucose [Mass/Vol] 128 mg/dL Critically high 74-106 [facility] Comment on above: Performed By: #### D ATBMP #### [facility] [address] [address] [address] David Phillips HDL NORMAL > or = 60 mg/dl - LO W CARDIOVASCULAR RISK <40 mg/dl - HIGH CARDIOVASCULAR RISK Normal [facility] Comment on above: Performed By: #### D ATBMP #### [facility] [address] [address] [address] David Phillips LDL CALC NORMAL SEE BELOW Normal [facility] Comment on above: Result Comment: <100 mg/dl OPTIMAL 100 - 129 mg/dl NEAR OR ABOVE OPTIMAL 130 - 159 mg/dl BORDERLINE HIGH 160 - 189 mg/dl HIGH >190 mg/dl VERY HIGH Performed By: #### D ATBMP #### [facility] [address] [address] [address] David Phillips Potassium [Moles/Vol] 3.9 mmol/L Normal 3.5-5.1 [facility] Comment on above: Performed By: #### D ATBMP #### [facility] [address] [address] [address] David Phillips Sodium [Moles/Vol] 143 mmol/L Normal 136-145 [facility] Comment on above: Performed By: #### D ATBMP #### [facility] [address] [address] [address] David Phillips Triglyceride [Mass/Vol] 63 mg/dL Normal <=150 [facility] Comment on above: Performed By: #### D ATBMP #### [facility] [address] [address] [address] David Phillips Urea nitrogen [Mass/Vol] 15.0 mg/dL Normal 7.0-18.0 [facility] Comment on above: Performed By: #### D ATBMP #### [facility] [address] [address] [address] David Phillips Urea nitrogen/Creatinin e [Mass ratio] 24.2 mg/mg Normal [facility] Comment on above: Performed By: #### D ATBMP #### [facility] [address] [address] [address] David Phillips VLDL CALC 12.6 mg/dL Normal [facility] Comment on above: Performed By: #### D ATBMP #### [facility] [address] [address] [address] David Phillips GLYCOHEMOGLOBIN A1Con 2021 ADA RECOMMENDATION SEE BELOW Normal [facility] Comment on above: Result Comment: ADA RECOMMENDED LIMIT 4.0 - 6.0 ADA THERAPEUTIC TARGET < 7.0 ACTION SUGGESTED > 7.0 Performed By: #### D ATCBC #### [facility] [address] [address] [address] David Phillips Glucose [Mass/Vol] 105 mg/dL Normal [facility] Comment on above: Performed By: #### D ATCBC #### [facility] [address] [address] [address] David Phillips HbA1c (Bld) [Mass fraction] 5.3 % Normal 4.5-6.2 [facility] Comment on above: Performed By: #### D ATCBC #### [facility] [address] [address] [address] David Phillips SCREENING MAMMOGRAM W/GAIL, BILATERAL*on 06-11-2021 SCREENING MAMMOGRAM W/GAIL, BILATERAL* CLINICAL HISTORY: Screening Mammogram COMPARISON: Priors from 2020, 2017, 2016, 2015 TECHNIQUE: 2D and 3D mammogram imaging of both breasts was performed. RESULT: DENSITY: There are scattered areas of fibroglandular density. There is no suspicious mass, asymmetry, architectural distortion, or calcification. No significant change since the prior mammograms. IMPRESSION: BIRADS 1 : NEGATIVE, NORMAL INTERVAL FOLLOW UP FOLLOW-UP: 12 months DENSITY: Scattered MAMMOGRAPHY IS VERY IMPORTANT TO YOUR HEALTH. THE CURRENT [place] [employer] AND [employer] GUIDELINES RECOMMENDS ANNUAL MAMMOGRAPHY BEGINNING AT AGE 40 THIS FACILITY USES A REMINDER SYSTEM TO ENSURE ALL PATIENTS RECEIVE REMINDER NOTIFICATIONS AT THE APPROPRIATE TIME BASED ON THE RECOMMENDATIONS OF THIS EXAM. Board Certified Radiologist. Accredited by the ACR and FDA. Report reported and signed by Trell Martin on 06/11/2021 1236 Normal [facility] LARGE JOINT/BURSA INJECTION AND/OR ASPIRATION: R hip jointon 05-02-2020 Rachnapatricia Hunter 05/03/2020 6:01 PM LARGE JOINT/BURSA INJECTION AND/OR ASPIRATION: R hip joint Date/Time: 05/02/2020 12:40 PM Supporting Documentation Indications: pain Procedure Details: Location: hip - R hip joint Local Anesthetic: bupivacaine 0.5% and lidocaine 1% Total Local Anesthetic: 4 mLs Guidance: ultrasound Ultrasound probe size: 4 mHz curvilinear Images were saved electronically. Probe: 4 mHz curvilinear Needle size: 22 G Needle Length: 4.0 inch Approach: anterior Medication Verification: I have personally verified and performed the final check of the medication(s) used in this procedure prior to administration. The following items were included during the verification process for medication(s) administered: drug name, strength, volume, expiration, physical integrity and appearance of the medication(s). Medications administered: 1 mL bupivacaine 0.5 %; 2 mL triamcinolone 40 MG/ML; 4 mg dexamethasone 4 MG/ML; 4 mL lidocaine 10 mg/mL; 5 mL sodium chloride (PF) 0.9 % Patient tolerance: patient tolerated the procedure well with no immediate complications Consent: Consent was obtained prior to the procedure after discussion of the risks, benefits and alternatives, and expected outcomes were discussed with the patient. The possibilities of reaction to medication, bleeding, infection, the need for additional procedures, failure to diagnosis a condition, and creating a complication requiring operation were discussed with the patient. The patient concurred with the proposed plan, giving consent. Preparation: Patient was prepped in the usual sterile fashion. The patient was prepped with Chloraprep. [facility] XR HIP WITH PELVIS RIGHTon 0 04-29-2020 : Xrays of the pelvi s and right hip demonstrating mild to moderate hip joint OA, extensive enthesopathic changes at the greater trochanter, moderate SI joint OA and stable post-JASON findings in the left hip. [facility] X-rays, weightbearin g AP pelvis and 2 views of the right hip were ordered and interpreted in the presence of the patient by me today. These demonstrate normal mineralization, normal alignment. There is no evidence of acute osseous abnormality or fracture. The right femoracetabular joint demonstrates mild-moderate evidence of osteoarthrosis. 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 The sacroiliac joints demonstrate moderate evidence of osteoarthrosis. [facility] CBCon 02-25-2018 ABSOLUTE BAS 0.0 X10 Normal [facility] ABSOLUTE EOS 0.10 X10 Normal [facility] ABSOLUTE NEUTROPHIL COUNT 4.5 x10 Normal 1.0-7.0 [facility] Basophils/100 WBC Auto (Bld) 0.7 % Normal 0.0-2.0 [facility] DTYPE AUTO DIFF Normal [facility] Eosinophils/100 WBC Auto (Bld) 1.9 % Normal 0.0-11.0 [facility] Lymphocytes Auto #/vol (Bld) 1.80 X10 Normal [facility] Lymphocytes/100 WBC Auto (Bld) 25.1 % Normal 20.0-55.0 [facility] Monocytes Auto #/vol (Bld) 0.6 X10 Normal [facility] Monocytes/100 WBC Auto (Bld) 8.3 % Normal 0.0-10.0 [facility] Neutrophils/100 WBC Auto (Bld) 64.0 % Normal 37.0-75.0 [facility] Erythrocyte distribution width Auto Ratio (RBC) 13.4 % Normal 11.5-14.5 [facility] Hematocrit Auto Volume Fraction (Bld) 39.9 % Normal 36.0-48.0 [facility] Hemoglobin mass conc (Bld) 13.4 g/dL Normal 12.0-16.0 [facility] MCH Auto Entitic mass (RBC) 28.7 pg Normal 26.0-35.0 [facility] MCHC Auto mass conc (RBC) 33.5 g/dL Normal 27.0-37.0 [facility] MCV Auto Entitic volume (RBC) 85.7 fL Normal 80.0-100.0 [facility] Platelet mean volume Auto Entitic volume (Bld) 7.3 fL Low 7.4-11.0 [facility] Platelets Auto #/vol (Bld) 329 /cmm Normal 130.0-400.0 [facility] RBC Auto #/vol (Bld) 4.66 /cmm Normal 4.0-5.4 [facility] WBC Auto #/vol (Bld) 7.0 /cmm Normal 3.6-11.0 [facility] CHEMISTRY, [facility] ALT enzyme act/vol 30 U/L Normal 9-52 [facility] Calcium mass conc 9.3 mg/dL Normal 8.4-10.2 [facility] Cholesterol in HDL mass conc 49 mg/dL Normal 33-75 [facility] Cholesterol in LDL mass conc 91 MG/DL Normal [facility] Cholesterol in VLDL mass conc 22 mg/dL Normal 5.0-25 [facility] Cholesterol mass conc 162 mg/dL Normal 107-217 [facility] Cholesterol.total/ Cholesterol in HDL mass ratio 3.31 {ratio} Normal [facility] Comment on above: Result Comment: RISK TOTAL/HDL RATIO MEN WOMEN1/2 AVERAGE 3.43 3.27AVERAGE 4.97 4.442X AVERAGE 9.55 7.053X AVERAGE 23.99 11.04 Creatinine mass conc 0.6 mg/dL Low 0.7-1.2 [facility] EST. GFR, >60 Normal [facility] EST. GFR,Non >60 Normal [facility] Gamma glutamyl transferase [Enzymatic activity/volume] in Serum or Plasma 18 IU/L Normal 12-43 [facility] GFR/1.73 sq M predicted among non-blacks MDRD vol rate/area (S/P/Bld) Average GFR for 60-69 years old = 85. Normal [facility] Comment on above: Result Comment: [employer] karime Kidney disease, GFR = <60.Kidney failure, GFR = <15.The GFR estimate is not adjusted for extreme body surface area or acute process, nor has it been validated for women or ethnic groups other than and . Glucose mass conc 92 mg/dL Normal 70-100 [facility] Comment on above: Result Comment: NORM AL <100 mg/dLPREDIABETES 101-126 mg/dLDIABETES 126 mg/dL or higher Potassium molar conc 4.3 mmol/L Normal 3.5-5.1 [facility] Sodium molar conc 142 mmol/L Normal 137-145 [facility] Triglyceride mass conc 111 mg/dL Normal 0-150 [facility] Urea nitrogen mass conc (Bld) 17 mg/dL Normal 7-20 [facility] HEMOGLOBIN A1Con 02-25-2018 Glucose mass conc 105 mg/dL Normal [facility] Hemoglobin A1c/Hemoglobin.tot al mass fraction (Bld) 5.3 % Normal 0-6 [facility] Comment on above: Result Comment: NORM AL <5.7%PREDIABETES 5.7-6.4%DIABETES 6.5% OR HIGHER WRISTon 12-05-2017 WRIST Final ReportAccession No: [id number] Performed: Dec 05 2017 11:45AMExamination: RIGHT WRISTWRIST RIGHTCLINICAL STATEMENT: Right wrist pain.COMPARISON: November 07, 2017.TECHNIQUE: Frontal, oblique, and lateral views.FINDINGS: There remains an incompletely healed transverse fracturethrough thedistal radius with sclerosis at the fracture margins and mild adjacentperiosteal callous formation. The overall appearance is very similar totheprevious examination. There are again arthritic changes of the CMC jointof thethumb and triscaphe joints. There is persistent mild soft tissue swellingofthe wrist. No new fractures are visible.IMPRESSION:No change in position of the incompletely healed distal radial fracture.No newfractures.Interpreting Physician: BK BLANCO D.O.Trans: abond : cc: Normal [facility] WRISTon 11-07-2017 WRIST Final ReportAccession No: [id number] Performed: Nov 07 2017 9:58AMExamination: RIGHT WRISTEXAM: WRIST RIGHT 3 VIEWS.REASON FOR EXAM: Pain/Tenderness. Follow-up fracture.TECHNIQUE: PA, lateral and oblique views of the right wrist.COMPARISON: Right wrist 10/08/2017.FINDINGS: A healing distal radius metaphyseal fracture with osseous callusformation is seen. There has been advancement in callus development. Nointerval fracture fragment displacement is seen. Mild patchydemineralizationof the osseous structures is noted. No new osseous abnormalities areidentified. Thumb base degenerative changes are present.IMPRESSION:Stable position of the healing distal radius metaphyseal fracture withadditional osseous callus formation.Interpreting Physician: MADIE LORENZO M.D.Trans: lcoope : cc: Normal [facility] XR WRIST RIGHT 3+ VIEWS (STA NDARD)on 10-08-2017 XR WRIST RIGHT 3+ VIEWS (STANDARD) EXAMINATION:XR WRIST RIGHT 3+ VIEWS (STANDARD)HISTORY:ORDERING SYSTEM PROVIDED HISTORY: PAIN, TECHNOLOGIST PROVIDED HISTORY: Reason for exam: rt wrist painInjury/TraumaCancer History: unkSurgery, RadiationHistory: carpal tunnelEncounter Type: Subsequent/Follow-upMechan ism of injury: fallORDERING SYSTEM PROVIDED DIAGNOSIS CODES:M25.532 Left wrist painCOMPARISON:09/15/2017. FINDINGS:Three views of the right wrist demonstrate a healing distal radius fracture. There is a transverse band of sclerosis through distal metadiaphysis with close approximation. Signs of bridging callus formation are noted. There is no definitive intraarticular involvement or significant angulation.Distal ulna intact.Carpal bones appear well positioned. Jvqf-uv-qnejoupw arthritic changes seen of proximal carpal row, greatest laterally.IMPRESSION:1. Healing distal radial nondisplaced nonarticular transverse fracture now seen.2. Chronic wuun-me-crgatmhb arthritic changes, greatest involving lateral carpal joints.ARR/trnWorkstation ID: [id number] by: ANDREZ ECHAVARRIA on FriOct 09, 2017 7:30:06 AM EDTTranscribed by: LANI EDWARDS on FriOct 09, 2017 9:26:53 AM EDTFinalized by: ANDREZ ECHAVARRIA on FriOct 09, 2017 4:08:57 PM EDT Normal [facility] Comment on above: Order Comment: Reaso n for exam?:rt wrist painInjury/Trauma or Illness?:Injury/TraumaHow long have you had these symptoms (acute/chronic)?:AcuteHistory of cancer?:unkSurgeries, chemotherapy, or radiation?:carpal tunnelType of Exam?:Subsequent/Follow-upMechanism of injury?:fall XR WRIST RIGHT 3 VIEWSon XR WRIST RIGHT 3 VIEWS EXAMINATION: XR WRIST RIGHT 3 VIEWS [id number] CLINICAL HISTORY: 61-year-old female with history of fall swelling right posterior wristFINDINGS/IMPRESSION: Comparison: Compared to none available.No definite acute fracture or malalignment of the right wrist.Focal soft tissue swelling dorsally is seen at the level of the carpal metacarpal articulation. No pathologic calcifications. Blunted appearance of the ulnar styloid could relate to remote trauma. Normal [facility] Mammogramon 11-07-2016 Mammogram Patient Name: Fe YIN : [id number]: [id number] Date: [id number] #: [id number] Class: OPhysician: Conchis COUCH Physician: , Study Desc.: SCREENING MAMMOGRAMPROCEDURE: BILATERAL DIGITAL SCREENING MAMMOGRAPHY. STUDIES: 03/09/2016, 10/19/2014, 06/18/2013, and 04/08/2012EXAM DATE AND TIME: 11/07/2016 1:14 PMINDICATION: Screening examination for breast cancer. Family history of breast cancer involving patient's sister at age 64.TECHNIQUE: CC and MLO views of bilateral breasts. Computer-aided diagnosis was utilized. TISSUE DENSITY: The breast is almost entirely fat (<25% glandular)FINDINGS: There are no suspicious calcifications, masses, areas of architectural distortion, or developing asymmetries. There is no mammographic evidence for malignancy. IMPRESSION: No evidence for malignancy.OVERALL ASSESSMENT: ACR BI-RADS Category 1 - Negative.RECOMMENDATION: Routine screening mammogram Bilateral in 1 Year.A letter of notification will be sent to the patient regarding the results.The [employer] and the [employer] recommend annual screening mammograms for women age 40 and older.Dictated: Isidro Morrison 11/07/2016 15:09Transcribed: Isidro Morrison 11/07/2016 15:11Electronically Signed: Isidro Morrison 11/07/2016 15:11[facility] [place] [address] [email or web address] Normal [facility] Vital Signs Date Time Vital Sign Value Performing Clinician Facility 06-13-2023 09:14-0500 Body height 165.1 cm DO Karen Cardoso Work Phone: [facility] 06-13-2023 09:14-0500 Body mass index (BMI) [Ratio] 26.1 kg/m2 DO Karen Cardoso Work Phone: [facility] 02-16-2024 09:14-0500 Body weight 71.21 kg DO Karen Cardoso Work Phone: [facility] 05-14-2023 08:15-0500 Body height 165.1 cm Finn Shultzle II Other [facility] 12-12-2022 09:10-0400 Body height 165.1 cm Karen Cardoso Other [facility] Other 12-12-2022 09:10-0400 Body mass index (BMI) [Ratio] 27.12 kg/m2 Karen Cardoso Other [facility] Other 12-12-2022 09:10-0400 Body temperature 98.6 [degF] Karen Cardoso Other [facility] Other 12-12-2022 09:10-0400 Body weight 73.94 kg Karen Cardoso Other [facility] Other 12-12-2022 09:10-0400 Diastolic blood pressure 78 mm[Hg] Karen Cardoso Other [facility] Other 12-12-2022 09:10-0400 Respiratory rate 18 /min Karen Cardoso Other [facility] Other 12-12-2022 09:10-0400 SaO2% (BldA) [Mass fraction] 96 % Karen Walker Other [facility] Other 12-12-2022 09:10-0400 Systolic blood pressure 124 mm[Hg] Karen Maggieausten Other [facility] Other 07-12-2022 11:00-0400 Body height 165.1 cm Finn Shultzle II Other [facility] Other 07-12-2022 11:00-0400 Body mass index (BMI) [Ratio] 26.62 kg/m2 Finn Ortez II Other [facility] Other 07-12-2022 11:00-0400 Body weight 72.58 kg Finn Ortez II Other [facility] Other 06-13-2022 09:10-0500 Body height 165.1 cm Karen Cardoso Other [facility] Other 06-13-2022 09:10-0500 Body mass index (BMI) [Ratio] 27.29 kg/m2 Karen Cardoso Other [facility] Other 06-13-2022 09:10-0500 Body weight 74.39 kg Karen Cardoso Other [facility] Other 06-13-2022 09:10-0500 Diastolic blood pressure 80 mm[Hg] Karen Cardoso Other [facility] Other 06-13-2022 09:10-0500 Respiratory rate 18 /min Karen Cardoso Other [facility] Other 06-13-2022 09:10-0500 SaO2% (BldA) [Mass fraction] 98 % Karen Cardoso Other [facility] Other 06-13-2022 09:10-0500 Systolic blood pressure 132 mm[Hg] Karen Cardoso Other [facility] Other 02-12-2022 10:50-0400 Body height 165.1 cm Karen Cardoso Other [facility] Other 12-06-2021 11:30-0400 Body height 165.1 cm Karen Cardoso Other [facility] Other 12-06-2021 11:30-0400 Body mass index (BMI) [Ratio] 25.62 kg/m2 Karen Cardoso Other [facility] Other 12-06-2021 11:30-0400 Body temperature 97.6 [degF] Karen Cardoso Other [facility] Other 12-06-2021 11:30-0400 Body weight 69.85 kg Karen Cardoso Other [facility] Other 12-06-2021 11:30-0400 Diastolic blood pressure 82 mm[Hg] Karen Cardoso Other [facility] Other 12-06-2021 11:30-0400 Respiratory rate 16 /min Karen Cardoso Other [facility] Other 12-06-2021 11:30-0400 SaO2% (BldA) [Mass fraction] 96 % Karen Cardoso Other [facility] Other 12-06-2021 11:30-0400 Systolic blood pressure 122 mm[Hg] Karen Cardoso Other [facility] Other 05-23-2020 09:12-0500 BMI (Body Mass Index) 28.06 kg/m2 [facility] 05-23-2020 09:12-0500 Body weight 76.48 kg [facility] 05-23-2020 09:12-0500 Height 165.1 cm [facility] 05-02-2020 12:42-0500 BMI (Body Mass Index) 28.36 kg/m2 [facility] 05-02-2020 12:42-0500 Body weight 77.29 kg [facility] 05-02-2020 12:42-0500 Height 165.1 cm [facility] 04-29-2020 14:49-0500 Body surface area Derived from formula 1.8 m2 [facility] 04-27-2020 08:58-0500 BMI (Body Mass Index) 26.63 kg/m2 [facility] 04-27-2020 08:58-0500 Body weight 72.58 kg [facility] 04-27-2020 08:58-0500 Height 165.1 cm [facility] 07-27-2018 08:54-0400 BMI (Body Mass Index) 26.48 kg/m2 [facility] 07-27-2018 08:54-0400 Body Temperature 98.49 [degF] [facility] 07-27-2018 08:54-0400 Body weight 73.85 kg [facility] 07-27-2018 08:54-0400 BP Diastolic 60 mm[Hg] [facility] 07-27-2018 08:54-0400 BP Systolic 110 mm[Hg] [facility] 07-27-2018 08:54-0400 Height 167 cm [facility] 07-27-2018 08:54-0400 Pulse (Heart Rate) 65 /min [facility] 07-27-2018 08:54-0400 Pulse Oximetry 96 % [facility] 07-27-2018 08:54-0400 Respiratory Rate 16 /min [facility] 05-11-2018 15:19-0500 BMI (Body Mass Index) 26.57 kg/m2 [facility] Work Phone: 05-11-2018 15:19-0500 Body Temperature 97.3 [degF] [facility] Work Phone: 05-11-2018 15:19-0500 BP Diastolic 68 mm[Hg] [facility] Work Phone: 05-11-2018 15:19-0500 BP Systolic 118 mm[Hg] [facility] Work Phone: 05-11-2018 15:19-0500 Height 167 cm [facility] Work Phone: 05-11-2018 15:19-0500 Pulse (Heart Rate) 73 /min [facility] Work Phone: 05-11-2018 15:19-0500 Pulse Oximetry 97 % [facility] Work Phone: 05-11-2018 15:19-0500 Respiratory Rate 16 /min [facility] Work Phone: 05-11-2018 15:19-0500 Weight 74.12 kg [facility] Work Phone: 03-30-2018 13:16-0500 BMI (Body Mass Index) 26.7 kg/m2 [facility] Work Phone: 03-30-2018 13:16-0500 Body Temperature 97.7 [degF] [facility] Work Phone: 03-30-2018 13:16-0500 BP Diastolic 58 mm[Hg] [facility] Work Phone: 03-30-2018 13:16-0500 BP Systolic 116 mm[Hg] [facility] Work Phone: 03-30-2018 13:16-0500 Height [address] [facility] Work Phone: 03-30-2018 13:16-0500 Pulse (Heart Rate) 66 /min [facility] Work Phone: 03-30-2018 13:16-0500 Pulse Oximetry 97 % [facility] Work Phone: 03-30-2018 13:16-0500 Respiratory Rate 16 /min [facility] Work Phone: 03-30-2018 13:16-0500 Weight 74.48 kg [facility] Work Phone: 12-05-2017 11:24-0400 BMI (Body Mass Index) 26.61 kg/m2 [facility] 12-05-2017 11:24-0400 BP Diastolic 78 mm[Hg] [facility] 12-05-2017 11:24-0400 BP Systolic 130 mm[Hg] [facility] 12-05-2017 11:24-0400 Height 162.6 cm [facility] 12-05-2017 11:24-0400 Pulse (Heart Rate) 57 /min [facility] 12-05-2017 11:24-0400 Weight 70.31 kg [facility] 11-07-2017 09:44-0400 BMI (Body Mass Index) 26.61 kg/m2 [facility] 11-07-2017 09:44-0400 Height 162.6 cm [facility] 11-07-2017 09:44-0400 Weight 70.31 kg [facility] 10-08-2017 14:41-0400 BMI (Body Mass Index) 26.61 kg/m2 [facility] 10-08-2017 14:41-0400 Height 162.6 cm [facility] 10-08-2017 14:41-0400 Weight 70.31 kg [facility] Encounters Encounter Date Encounter Type Care Provider Facility Start: 06-16-2023 End: 06-16-2023 ambulatory SHERYL COOPER Not Available Start: 06-13-2023 End: 06-13-2023 ambulatory Finn M Allenwood II Facility:[facility] Start: 06-13-2023 End: 06-13-2023 ambulatory DO Karen Cardoso Work Phone: [facility] Work Phone: Start: 06-13-2023 End: 06-13-2023 Patient encounter procedure DO Karen Cardoso Work Phone: [facility] Work Phone: Start: 05-14-2023 End: 05-14-2023 ambulatory Finn Allenwood II Other [facility] Other Start: 05-14-2023 Office outpatient vi sit 15 minutes Finn Pérez II [facility] Start: 05-14-2023 End: 05-14-2023 Patient encounter procedure DO Karen Cardoso Work Phone: [facility]- Start: 04-15-2023 End: 04-15-2023 ambulatory Karen aCrdoso Other [facility] Other Start: 04-15-2023 Telephone encounter Karen Cardoso [facility] [place] Start: 03-18-2023 ambulatory Karen Cardoso Facility:[facility] Start: 03-18-2023 Registered Recurring DO Karen Cardoso Work Phone: [facility] Start: 01-09-2023 End: 01-09-2023 ambulatory Karen Cardoso Other [facility] Other Start: 01-09-2023 Telephone encounter Karen Cardoso [facility] [place] Start: 12-17-2022 End: 12-17-2022 ambulatory Karen Cardoso Other [facility] Other Start: 12-17-2022 Telephone encounter Karen Cardoso [facility] [place] Start: 12-13-2022 End: 12-13-2022 ambulatory Karen Cardoso Other [facility] Other Start: 12-13-2022 Telephone encounter Karen Cardoso [facility] [place] Start: 12-12-2022 End: 12-12-2022 ambulatory Karen Cardoso Other [facility] Other Start: 12-12-2022 Office outpatient vi sit 25 minutes Karen Cardoso [facility] [place] Start: 09-02-2022 End: 09-02-2022 ambulatory Karen Cardoso Other [facility] Other Start: 09-02-2022 Telephone encounter Karen Cardoso [facility] [place] Start: 08-27-2022 End: 08-27-[address] KAREN CARDOSO Facility: Start: 08-01-2022 End: 08-01-2022 ambulatory Karen Cardoso Other [facility] Other Start: 08-01-2022 Telephone encounter Karen Cardoso [facility] [place] Start: 07-18-2022 End: 07-18-2022 ambulatory Finn Ortez II Other [facility] Other Start: 07-18-2022 Telephone encounter Finn Ortez II [facility] Start: 07-12-2022 FQ[facility] visit new patient Finn Shultz le II [facility] Start: 07-12-2022 End: 07-12-2022 ambulatory Finn Ortez II Facility:[facility] Start: 07-12-2022 End: 07-12-2022 ambulatory DO Karen Cardoso Work Phone: [facility] Work Phone: Start: 07-12-2022 End: 07-12-2022 Patient encounter procedure DO Karen Cardoso Work Phone: [facility] Start: 06-13-2022 End: 06-13-2022 ambulatory Karen Cardoso Other [facility] Other Start: 06-13-2022 Office outpatient vi sit 15 minutes Karen Cardoso [facility] [place] Start: 03-12-2022 Telephone encounter Karen Cardoso [facility] [place] Start: 03-12-2022 End: 03-13-[address] NONE LISTED REQUEST [facility] Other Start: 03-06-2022 End: 03-06-2022 ambulatory Karen Cardoso Other [facility] Other Start: 03-06-2022 Telephone encounter Karen Cardoso [facility] [place] Start: 02-12-2022 End: 02-12-2022 ambulatory Karen Cardoso Other [facility] Other Start: 02-12-2022 Telephone encounter Karen Cardoso [facility] [place] Start: 02-07-2022 Telephone encounter Karen Cardoso [facility] [place] Start: 02-07-2022 End: 02-08-[address] KAREN CARDOSO [facility] Other Start: 12-06-2021 End: 12-06-2021 ambulatory Karen Cardoso Other [facility] Other Start: 12-06-2021 Office outpatient vi sit 25 minutes Karen Cardoso [facility] [place] Start: 12-03-2021 End: 12-03-2021 ambulatory aKren Cardoso Other [facility] Other Start: 12-03-2021 Telephone encounter Karen Cardoso [facility] [place] Start: 11-28-2021 End: 11-29-2021 ambulatory NONE LISTED REQUEST Facility: Start: 02-06-2021 End: 02-10-2021 ambulatory KAREN CARDOSO [facility] Start: 06-05-2020 End: 06-05-2020 Orders Only Annmarie Xavier Work Phone: [facility] Start: 05-23-2020 End: 05-23-2020 Office outpatient visit 15 minutes Chito Collins Emery Work Phone: [facility] Comment on above: Primary osteoarthrit is of right hip (Primary Dx); Greater trochanteric bursitis of right hip Start: 05-02-2020 End: 05-02-2020 Patient encounter procedure Chito Collins Emery Work Phone: [facility] Comment on above: Primary osteoarthrit is of right hip (Primary Dx); Greater trochanteric bursitis of right hip Start: 04-27-2020 End: 04-27-2020 Subsequent hospital visit by physician Chito Land Work Phone: [facility] Comment on above: Arrived Start: 04-27-2020 End: 04-27-2020 Office outpatient new 30 minutes Chito Collins Emery Work Phone: [facility] Comment on above: Primary osteoarthrit is of right hip (Primary Dx); Greater trochanteric bursitis of right hip; Right hip pain Start: 07-27-2018 End: 07-27-2018 Patient encounter procedure [facility] Start: 07-27-2018 End: 07-27-2018 Office outpatient visit 15 minutes Payton Duckworth Work Phone: [facility] Comment on above: Acute swimmer's ear of both sides (Primary Dx) Start: 06-21-2018 End: 06-21-2018 Refill Payton Duckworth Work Phone: [facility] Start: 06-16-2018 End: 06-16-2018 Refill Paytonkimo Duckworth Work Phone: [facility] Start: 05-11-2018 Patient encounter procedure [facility] Start: 05-11-2018 End: 05-11-2018 Office outpatient visit 15 minutes Wheelwright Felipa Duckworth Work Phone: [facility] Comment on above: Recurrent major depr essive disorder, in partial remission (Primary Dx); Anxiety Start: 04-09-2018 End: 04-09-2018 Patient encounter procedure Pretty Lovell [facility] Comment on above: Prescription Clarifi cation Start: 04-08-2018 End: 04-08-2018 Patient encounter procedure Other Other [facility] Start: 03-30-2018 End: 03-30-2018 Patient encounter procedure Provider Sebas [facility] Start: 03-30-2018 End: 03-30-2018 Office outpatient visit 15 minutes Payton Duckworth Work Phone: [facility] Comment on above: Recurrent major depr essive disorder, in partial remission (Primary Dx); Anxiety Start: 03-25-2018 End: 03-25-2018 Patient encounter procedure Paytonkimo Lesaige Work Phone: [facility] Comment on above: Medication Managemen t Start: 03-21-2018 End: 03-21-2018 Refill Payton Duckworth Work Phone: [facility] Start: 03-12-2018 Patient encounter procedure [facility] Start: 03-12-2018 End: 03-12-2018 Patient encounter procedure Paytonkimo Duckworth Work Phone: [facility] Comment on above: Arrived Start: 03-03-2018 Patient encounter procedure RUPERT Felipa JOSIAH [facility] Start: 02-25-2018 Patient encounter procedure BUCUS NON-PATIENT [facility] Start: 12-05-2017 Patient encounter Sendy Preston ity:[place] Start: 12-05-2017 End: 12-05-2017 Patient encounter Isidro Lloyd Work Phone: [facility] Start: 12-05-2017 End: 12-05-2017 Office outpatient visit 10 minutes Isidro Lloyd Work Phone: [facility] Start: 11-07-2017 Patient encounter Sendy Lloyd Facil ity:[place] Start: 11-07-2017 End: 11-07-2017 Patient encounter Isidro Lloyd Work Phone: [facility] Start: 11-07-2017 End: 11-07-2017 Office outpatient visit 10 minutes Isidro Lloyd Work Phone: [facility] Start: 10-08-2017 End: 10-09-2017 Ambulatory Isidro Lloyd Work Phone: [facility] Start: 10-08-2017 End: 10-08-2017 Office outpatient visit 15 minutes Isidro Lloyd Work Phone: [facility] Start: 10-08-2017 End: 10-08-2017 Ambulatory Isidro Lloyd Work Phone: [facility] Start: 09-15-2017 End: 09-15-2017 Emergency department patient visit RODRIGO Arash CULP [facility] Start: 05-27-2017 End: 05-27-2017 Ambulatory DESIRE HEWITT [facility]ula tory Start: 02-18-2017 [facility] Start: 11-07-2016 End: 11-08-[address] [facility] Start: 12-13-2014 Patient encounter DESIRE HEWITT DARLEEN [facility] Procedures Date Procedure Procedure Detail Performing Clinician Start: 06-13-2023 Plain X-ray of right hip DO Karen Cardoso Work Phone: Start: 07-12-2022 Plain X-ray of right hip DO Karen Cardoso Work Phone: Start: 05-02-2020 Arthrocentesis aspir &/inj major jt/bursa w/us Chito Land Work Phone: Start: 03-13-2018 Mammography BUCYRUS NO N-PATIENT FAIRS Start: 10-08-2016 Colonoscopy Annmarie lee Start: 03-25-2016 Mammography Annmarie P jesus Start: 01-24-2015 Colonoscopy Historical Provider Plan of Treatment Date Care Activity Detail Author Start: 03-10-2027 Tetanus [facility] Start: 10-08-2026 Screening [facility] Start: 10-08-2026 Screening for malign ant neoplasm of colon [facility] Start: 06-13-2023 Plain X-ray of right hip XR hi p RT min 2V(w/wo pelvis)* [facility] Start: 06-13-2023 XR Hip - right [address] [facility] Start: 11-27-2021 DEXA SCAN DEXA SCAN [facility] Work Phone: Start: 05-23-2020 End: 05-23-2020 Office Visit 05/23/2020 Office Visit Orthopaedics Chito Land MD [address] [place] [address] [phone] [facility] Start: 05-02-2020 End: 05-02-2020 Office Visit 05/02/2020 Office Visit Orthopaedics Chito Land MD [address] [place] [address] [facility] Start: 12-28-2019 Influenza vaccination INFLUENZA VACC INE (#1) [facility] Start: 12-28-2019 Influenza vaccinatio n given Sequential Influenza Vaccine (#1) [facility] Start: 10-07-2019 Pneumococcal vaccination [facility] Start: 03-12-2019 Protein mass conc MAMMOGRAM SC REENING DISCUSSION [facility] Work Phone: Start: 03-12-2019 Screening mammography MAMMOGRA M SCREENING DISCUSSION [facility] Start: 05-11-2018 End: 05-11-2018 Ambulatory 05/11/2018 Office Visit Family Medicine Payton Duckworth MD [address] [place] [address] [phone] [facility] Start: 03-30-2018 End: 03-30-2018 Ambulatory [facility] Comment on above: Arrived Start: 12-27-2017 Influenza vaccination SEQUENTI AL INFLUENZA VACCINE (#1) [facility] Start: 12-05-2017 End: 12-05-2017 Ambulatory 12/05/2017 Office Visit Orthopedic Surgery Isidro Lloyd MD [facility] [place] [address] [phone] [facility] Start: 11-07-2017 End: 11-07-2017 Ambulatory 11/07/2017 Office Visit Orthopedic Surgery Isidro Lloyd MD [address] [place] [address] [phone] [facility] Start: 04-29-2017 Protein mass conc MAMMOGRAM SC REENING DISCUSSION [facility] Work Phone: Start: 04-29-2017 Screening for malign ant neoplasm of cervix [facility] Work Phone: Start: 03-25-2017 Screening mammography [facility] Start: 03-05-2017 History and physical examination, annual for health maintenance Wellness Visit [facility] Start: 01-25-2016 Colonoscopy COLORECTAL CAN CER SCREENING DISCUSSION [facility] Start: 01-25-2016 Protein mass conc COLON CANCER SCREENING DISCUSSION [facility] Start: 12-14-2015 Screening for malign ant neoplasm of colon Fecal occult blood test (FOBT,FIT) [facility] Start: 2014 Zoster vaccine hzv l esteban for subcutaneous use ZOSTER VACCINE [facility] Start: 2004 Administration of he rpes zoster vaccine Zoster Vaccines (1 of 2) [facility] Start: 2004 Colonoscopy COLON CANCER S CREENING DISCUSSION [facility] Start: 2004 Protein mass conc COLON CANCER SCREENING DISCUSSION [facility] Work Phone: Start: 2004 Screening for malign ant neoplasm of colon [facility] Start: 2004 Zoster vaccine hzv l esteban for subcutaneous use ZOSTER (SHINGLES) VACCINE (1 of 2) [facility] Start: 1994 Fasting lipid profile LIPID SCREENIN G [facility] Work Phone: Start: 1973 Third diphtheria, tetanus and acellular pertussis (DTaP) vaccination TDAP (ADULT) [facility] Work Phone: Start: 1972 Hepatitis C antibody , confirmatory test Hepatitis C Screening [facility] Start: 1972 Tetanus vaccination TETANUS [facility] Work Phone: Start: 1970 COVID-19 Vaccine (1 of 2) COVID-19 Vaccine (1 of 2) [facility] Start: 1969 HIV screening HIV Screening [facility] Start: 10-07-1967 HIV screening HIV SCREENING DISCUSSION [facility] Work Phone: Start: 1954 Fall risk assessment Falls Risk Asse ssment [facility] Start: 1954 End: 1954 Hepatitis C antibody, confirmatory test HEPATITIS C VIRUS SCREENING [facility] Work Phone: Start: 1954 HEPATITIS C SCREENING HEPATITIS C SC REENING [facility] Start: 1954 Screening for malign ant neoplasm of cervix PAP SMEAR [facility] End: 03-12-2018 MG Breast Views MAMMO SCREENING BILATERAL Routine Screening for breast cancer 1 Occurrences starting 03/12/2018 until 03/12/2018 [facility] Work Phone: Comment on above: 1 Occurrences starti ng 03/12/2018 until 03/12/2018 MG Breast Views MAMMO SCREENING BILATERAL Routine Screening for breast cancer 03/12/2018 1:05 PM [facility] Work Phone: End: 04-27-2020 Radiography of hip XR HIP WITH PELVIS RIGHT Imaging Routine Right hip pain 1 Occurrences starting 04/27/2020 until 04/27/2020 [facility] Comment on above: 1 Occurrences starti ng 04/27/2020 until 04/27/2020 Radiography of hip XR HIP WITH P JEFF RIGHT Imaging Routine Right hip pain 04/27/2020 9:13 AM EST [facility] End: 10-08-2017 XR Wrist Right 3+ Views (Standard) XR Wrist Right 3+ Views (Standard) Routine Left wrist pain Once for 1 Occurrences starting 10/08/2017 until 10/08/2017 [facility] XR Wrist Right 3+ Vi ews (Standard) XR Wrist Right 3+ Views (Standard) Routine Left wrist pain 10/08/2017 2:17 PM EDT [facility] Immunizations Immunization Date Immunization Notes Care Provider Alexia tracey 07-18-2020 COVID-19 Vaccine Pfi zer - Documentation Purposes Only Karen Cardoso Other [facility] 06-26-2020 COVID-19 Vaccine Pfi zer - Documentation Purposes Only Karen Walker Other [facility] 03-03-2018 influenza virus vaccine, unspecified formulation [facility] 03-10-2017 diphtheria, tetanus toxoids and acellular pertussis vaccine, unspecified formulation Annmarie [facility] 03-10-2017 tetanus toxoid, redu jim diphtheria toxoid, and acellular pertussis vaccine, adsorbed Isidro Eldridgeh [facility] 08-26-2013 tetanus toxoid, redu jim diphtheria toxoid, and acellular pertussis vaccine, adsorbed Annmarie [facility] Payers Date Payer Category Payer Medicare MEDICARE ANTHEM HMO OR PPO MEDICARE ANTHEM HMO OR PPO xxxxxxxxxxxx 2017-Present [id number] 2017 Medicare [id number] 2015 Medicare [id number] 1959 Medicare [id number] 1959 Self-pay [id number] 1954 Unknown [id number] 1954 Unknown [id number] 1954 Unknown [id number] 1954 Unknown [id number] 1954 Unknown [id number] 1954 Unknown [id number] 9 Unknown [facility] [id number] Unknown [id number] Unknown [id number] Unknown [id number] Unknown [id number] Unknown [id number] Unknown [id number] Social History Date Type Detail Facility Start: 10-08-2017 End: 06-13-2023 Tobacco smoking status [facility] Never smoker [facility] Sex Assigned At Not on file [facility] Start: 03-03-2018 Alcohol Comment 2 beers a week [facility] Start: 12-05-2017 End: 04-27-2020 Tobacco use and exposure Never used [facility] Start: 12-05-2017 End: 04-27-2020 Alcohol intake Current drinker of alcohol (finding) [facility] Start: 09-25-2016 Alcohol Comment SOCIAL [facility] Sex Assigned At Sex Assigned At [facility] Other Start: 1955 Sex Assigned At Female F [facility] Clinical Notes 06-11-2021 to 05-14-2023 Note Date & Type Note Facility 05-14-2023 Evaluation note Encounter Date Diagnosis Assessment Notes Apr, Primary osteoarthritis of right hip (ICD-10 - M16.11) Apr, Greater trochanteric bursitis of right hip (ICD-10 - M70.61) Apr, Other 1. We had a long discussion regarding the etiology of their symptoms. I explained to the patient that greater trochanteric bursitis is a chronic condition and as a result may require several rounds of physical therapy and or injections. Furthermore, it requires a diligent home exercise regimen to prevent flareups. 2. We discussed oral anti-inflammato barbara and Tylenol. Recommended utilizing [id number] r oral anti-inflammato barbara. Recommended adjusting their Tylenol dosing to 1000mg by mouth up to 3 times a day. 3. We discussed physical therapy. Patient preferred home exercises and we provided her a printout of those today. 4. We discussed steroid injections as a treatment option. Patient preferred hip bursa injection. After consent was obtained, the right hip greater trochanteric bursa was injected with 3 cc of Kenalog and 7 cc bupivacaine using sterile technique. Patient tolerated the injection well. 5. Follow up as needed [facility] Other 09-14-2023 Evaluation note* Encounter Date Diagnosis Assessment Notes Treatment Notes Treatment Clinical Notes Dec, Bipolar depression (ICD-10 - F31.9) [facility] Other 08-18-2023 Evaluation note* Encounter Date Diagnosis Assessment Notes Treatment Notes Treatment Clinical Notes Nov, Bipolar depression (ICD-10 - F31.9) Nov, Hyperlipidemia (ICD-10 - E78.5) [facility] Other 08-17-2023 Evaluation note* Encounter Date Diagnosis Assessment Notes Treatment Notes Treatment Clinical Notes Nov, Post concussion syndrome (ICD-10 - F07.81) She has several post concussion symptoms from her fall in late spring (2022). We discussed that she needs to be cautious to not hit her head on anything. She voices that her symptoms are getting better and are slowing down . She voices that she was starting to become concerned because she was still getting shooting pains in her head followed by a headache but then this week this has not happened at all. Her memory has gotten worse since she hit her head. I did recommend that she see a neurologist for evaluation. Her dad had dementia and passed at age 89, she thinks he was diagnosed in his early 80's. She does agree to the referral. Nov, Hyperlipidemia (ICD-10 - E78.5) Discussed cholesterol results with patient today. Total is 170. HDL is 62. LDL is 95. Triglycerides are 64. VLDL is 13. I did advise her that these are good readings. Nov, Hyperglycemia (ICD-10 - R73.9) Discussed blood sugar results with patient today. Glucose is 98. HgA1C is 5.7. I did explain to her that processed foods and sugars contribute to dementia. I did recommend that she avoid these things. Eat a more clean diet, more proteins and dark green vegetables. Nov, Bipolar depression (ICD-10 - F31.9) She voices that she was seeing a lady at [facility] but has not seen her in over a year. I did advise her that she would need to continue with that office for refills on the Lamotrigine. She states she has had increased anxiety and would like to increase her Venlafaxine. I did explain to her that she should discuss this with [facility] and encouraged her to go there to schedule an appointment to discuss. She voices that she will call and make an appointment. Nov, Memory changes (ICD-10 - R41.3) She voices that her memory was bad prior to her fall but it has worsened. Her dad had dementia that was diagnosed when he was in his 80's. She is going to see a neurologist for evaluation. Nov, Decreased libido (ICD-10 - R68.82) Continue with above medication as needed. Nov, Hair thinning (ICD-10 - L65.9) She voices that below the area where her hematoma was on the back of her head she has noticed that her hair is thinning. We discussed that this can happen with age, but we will order a TSH to check her thyroid and rule out any abnormalities. She is provided with an order and should call for the results. Nov, Weight loss (ICD-10 - R63.4) Nov, [facility] [place] [facility] (ICD-10 - Z79.899) [facility] Other 03-17-2023 Evaluation note* Encounter Date Diagnosis Assessment Notes Treatment Notes Treatment Clinical Notes Jun, Right hip pain (ICD-10 - M25.551) Jun, Greater trochanteric bursitis of right hip (ICD-10 - M70.61) Jun, Primary osteoarthritis of right hip (ICD-10 - M16.11) Jun, Other We had a long discussion today regarding her right hip pain and its etiology. I explained to her that her x-rays do demonstrate some signs of osteoarthritis but certainly not end-stage. Furthermore, her symptoms while may have some resembling osteoarthritis is not as consistent as it is with greater trochanteric bursitis. Furthermore, she has had hip bursa injections that have provided her nearly 100% relief for almost a year. At this point in time I think that her primary issue is the hip bursitis and secondarily having hip osteoarthritis. Although, I did explain to her that sometimes hip bursitis can be a downstream effect of the osteoarthritis. Nonetheless, I recommended conservative treatment for hip bursitis with a right hip injection, physical therapy, and continue Voltaren gel use. After consent was obtained, the right hip greater trochanteric bursa was injected with 3cc kenalog and 7cc bupivicaine using sterile technique. Patient tolerated the injection well. I will plan to see her back in 3 months. If she is doing well that is great she can cancel the appointment. If she still having significant pain may want to consider looking at her hip joint further. [facility] Other 02-16-2023 Evaluation note* Encounter Date Diagnosis Assessment Notes Treatment Notes Treatment Clinical Notes May, Hyperlipidemia (ICD-10 - E78.5) She was unable to tolerate Atorvastatin, it caused her to have muscle aches so she switched back to Simvastatin. I did review her cholesterol results with her today. Her total is 171. HDL is 61. LDL is 97. Triglycerides are 65. The Simvastatin is working well at this time. Medication is not irritating her liver, her AST is 21. ALT is 16. 16 May, 2022 Hip pain (ICD-10 - M25.559) right hip She would like to see an behavioral intervention specialist for her right hip. She had a total left hip replacement in the past. She voices that she is starting to hobble due to the right hip and it causes her to not be as active as she would like. I did recommend that she see Dr. Ortez. She agrees and a referral is provided. May, Weight gain (ICD-10 - R63.5) She voices that her weight has gone up but she has not been walking as much due to her hip pain. Her TSH is normal at 2.060. May, Hyperglycemia (ICD-10 - R73.9) Her glucose was 90 when checked. May, Leukocytosis (ICD-10 - D72.829) Will order a CBC to be done in November (2022) to recheck her white blood cell count. 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 May, Other I did provide h er with a lab order today to have labs drawn prior to her appointment in November (2022). If she decides to have outreach lab drawn through the [facility] she should call and we will give her an order for just an AST/ALT. We discussed how much Calcium she should be taking, I did recommend she take [id number] daily. Recommend Calcium Citrate. [facility] Other 11-09-2022 Evaluation note* Encounter Date Diagnosis Assessment Notes Treatment Notes Treatment Clinical Notes Feb, Hyperlipidemia (ICD-10 - E78.5) [facility] Other 10-18-2022 Evaluation note* Encounter Date Diagnosis Assessment Notes Treatment Notes Treatment Clinical Notes Jan, Hyperlipidemia (ICD-10 - E78.5) We discussed her cholesterol results. Her total cholesterol is 183. HDL is 75. LDL is 95.2. Triglycerides are 64. VLDL is 12.8 which is very good. She denies any side effects from the Atorvastatin. The medication is not affecting her liver. She is to continue with this. Jan, Leukocytosis (ICD-10 - D72.829) She voices that her left hip continues to bother her, mostly because of having to push and pull trays at work. She had a cyst in her back that was small, and she was afraid it would grow larger, so she had this removed a few days ago (02-05-22) and her lab was done on 02-07-22. She voices that the cyst was inflamed, but she was not put on any antibiotics. This is healing and she does still have stitches. I did explain to her that her white blood cell count was 14.3 in November (2021) and is now down to 11.4. This is not too far from normal which is 11.0 at this lab. It is possible that this is still not back to normal because of the cyst. In 2019 her white blood cell count was checked and it was 6.4 which was normal for her. I would like to repeat lab in 4-6 weeks to be sure this is continuing to get better, if it has gone back up then we would refer her to a assembly machine operator. I will have her call for those results. Jan, Hyperglycemia (ICD-10 - R73.9) Her blood sugar is 108. Her HgA1C is up from 5.3 to 5.5. She is walking but not as much as she was. She voices that she has been under alot of stress and eats her stress. I did recommend that she watch her intake of carbs and sugars. Stay active. She feels she can make dietary and lifestyle changes to help lower her A1C on her own. Jan, Other 10:04 AM - 10:13 AM [facility] Other 10-13-2022 Evaluation note* Encounter Date Diagnosis Assessment Notes Treatment Notes Treatment Clinical Notes Jan, [facility] [place] [facility] (ICD-10 - Z79.899) [facility] Other 08-11-2022 Evaluation note* Encounter Date Diagnosis Assessment Notes Treatment Notes Treatment Clinical Notes Nov, Hyperlipidemia (ICD-10 - E78.5) Discussed cholesterol results with Antonino today. Total is 191. HDL is 71. LDL is 107.4. Triglycerides are 63. Her VLDL is 12. I would like her to continue with the walking that she is doing. She would like to change medication to Atorvastatin. I did advise her that Atorvastatin is stronger but this could make her ache, I would start her at a 10 MG dose and see how she does. She is in agreement to this and we can see what her readings do. I will have her get a CMP drawn in two months to be sure medication is not affecting her liver. She can call for results. Nov, Leukocytosis (ICD-10 - D72.829) She voices that she had a steroid injection in her hip which likely caused the white blood cell count to be elevated at 14.3. I did advise her that we should get a repeat CBC done in 2 months to be sure this count has come back to normal. An order is provided and she can call for results. Nov, Hyperglycemia (ICD-10 - R73.9) Her glucose level was 128. HgA1C is 5.3 which is normal. She is encouraged to continue walking and staying active. Nov, Hip pain (ICD-10 - M25.559) right hip She did recently have a cortisone injection done. She is following with Dr. Land for her right hip. 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 She admits to not being a healthy eater so she feels the walking helps. She is walking three miles almost daily. Nov, Bipolar depression (ICD-10 - F31.9) She voices that she began seeing Marily Avina for evaluation, she has Bipolar Depression. She voices that this combination of medication is working very well for her. [facility] Other 02-14-2022 NoteHISTORY: Bone density screening. COMPARISON: None. PROCEDURE: Imaging of the lumbar spine, left forearm, right hip was obtained for bone density evaluation. FINDINGS: REGION BMD (g/cm??) YOUNG ADULT T-SCORE AGE-MATCHED Z-SCORE LEFT FOREARM (1/3) 0.421 -0.4 0.9 RIGHT NECK 0.760 -0.8 0.8 LUMBAR (L1-L4) 1.363 2.9 4.8 The mean BMD and corresponding T-score listed above indicate: Osteopenia and places the patient at a mild to moderate increased risk for fracture. There may be a future risk of developing osteoporosis. Recommend follow-up exam in 1 year, sooner as clinically necessary. Comment: The T-score is the primary focus of the interpretation of a patient???s bone mineral density measurement. The T-score is the number of standard deviations and individual is above or below the mean value for a young female having normal bone mass. The WHO defines osteoporosis based on the T-score value: +1.0 to -0.9 : Normal bone mass -1.0 to -2.5 : Osteopenia and thus may be at future risk of fracture. -2.6 to -5.0 : Osteoporosis and at significantly increased risk of fracture. IMPRESSION: OSTEOPENIA : ONE YEAR FOLLOW-UP RECOMMENDED Report reported and signed by Trell Martin on 06/11/2021 [id number] SpecialistEvaluation noteNo InformationNort [employer] Other Evaluation noteNo assessment information available [facility] Work Phone: Evaluation note* Diagnosis Onset Date Resolution Status Greater trochanteric bursitis of right hip acute Primary osteoarthritis of right hip acute [facility] Work Phone: History general Narrative - Reported* Type Description Date Medical History depression Medical History IBS Medical History Carrier of Herpes. Surgical History hysterectomy Surgical History 3x carpal tunnel surgery Surgical History left hip replacement / Dr. Vincent (?) 2014 Surgical History breast reduction Surgical History arm fat reduction Surgical History gallbladder removal Surgical History tubal liagation Surgical History Colonoscopy /needs repeat in 10 years / Dr. Wu 02/23/2020 Hospitalization History see above [facility] Other Hissohy general Narrative - Reported* Type Description Date Medical History depression Medical History IBS Medical History Carrier of Herpes. Surgical History hysterectomy Surgical History 3x carpal tunnel surgery Surgical History left hip replacement / Dr. Vincent (?) 2014 Surgical History breast reduction Surgical History arm fat reduction Surgical History gallbladder removal Surgical History tubal liagation Surgical History Colonoscopy /needs r epeat in 10 years / Dr. Wu / repeat in 202902/23/2020 Hospitalization History see above [facility] Other Assessments Diagnosis Left wrist pain Pain in joint, forearm Diagnosis Closed fracture of distal en d of right radius, unspecified fracture morphology, initial encounter - Primary Diagnosis Closed fracture of distal en d of right radius, unspecified fracture morphology, initial encounter - Right - Primary Diagnosis Closed fracture of distal en d of right radius with routine healing, unspecified fracture morphology, subsequent encounter - Primary Diagnosis Recurrent major depressive d isorder, in partial remission - Primary Anxiety Anxiety state, unspecified Diagnosis Screening for breast cancer Breast screening, unspecified Diagnosis Recurrent major depressive disorder, in partial remission- Primary Anxiety Anxiety state, unspecified Diagnosis Right hip pain Pain in joint, pelvic region and thigh Diagnosis Primary osteoarthritis of right hip- Primary Primary localized osteoarthrosis, pelvic region and thigh Greater trochanteric bursitis of right hip Enthesopathy of hip region Diagnosis Primary osteoarthritis of right hip- Primary Primary localized osteoarthrosis, pelvic region and thigh Greater trochanteric bursitis of right hip Enthesopathy of hip region Diagnosis Acute swimmer's ear of both sides- Primary Diagnosis Primary osteoarthritis of right hip- Primary Primary localized osteoarthrosis, pelvic region and thigh Greater trochanteric bursitis of right hip Enthesopathy of hip region Right hip pain Pain in joint, pelvic region and thigh Summary Purpose Family History No Family History Records Found Relationship Condition Age at Onset Recorded Date/T courtney father Family history of mental disorder Unknown Alzheimer's dementia Unknown Unknown Not Specified Unknown Malignant neoplasm Unknown Family history of lung cancer Unknown sister Malignant neoplasm Unknown Diabetes mellitus Unknown Advance Directives No Advanced Directives Records Found Advance Directive Response Recorded Date/ Time Advance Directives No July 18, 2 023 7:39am Instructions * Patient Instructions - Payton Duckworth MD - 03/30/2018 1:36 PM EST 1. Recurrent major depressive disorder, in partial remission Transitioned to trintellix off of prozac. Improving on trintellixt 5 mg dose of buspar ineffective. In crease dose to 10 mg tid prn. Previously failed wellbutrin and zoloft and cymbalta. cymbalta effective but caused migraines and was intolerable Has been on prozac for 33 years and feels that it is not working. 2. Anxiety in this encounter* Patient Instructions - Payton Duckworth MD - 05/11/2018 4:12 PM EST 1. Recurrent major depressive disorder, in partial remission Transitioned to trintellix. Improved. Increase dose of buspar effective. No medication changes. Previously failed wellbutrin and zoloft and cymbalta. cymbalta effective but caused migraines and was intolerable Had been on prozac for 33 years and feels that it was not working. 2. Anxiety in this encounter* Patient Instructions* Corinne Shaffer - 05/23/2020 9:10 AM EST At this point you are doing well. We do not need to schedule a follow up at this time, but if problems arise or if you have any difficulties please do not hesitate to contact us. documented in this encounter History of Present Illness * Payton Duckworth MD - 03/30/2018 1:10 PM EST Formatting of this note may be different from the original. History of Present Illness Antonino presents today with follow up of depression. She states that she has battled depression for many years. At her last visit we decided to switch off prozac d/t ineffectiveness and trial trintellix. She has been on high dose of trintellix for 2 weeks and feels like it is starting to work somewhat. i'm starting to get a little bit of my focus back. Nearly 1 year ago, Antonino's previous providerstarted her on xanax for worsening anxiety. We stopped this and trialed buspar which didn't real last after about 30 minutes. Still wakes up around 3:30 am. With her mind racing and cant fall back tosleep. She has previously tried zoloft, wellbutrin, and cymbalta. cymbalta was effective but gave her migraines. In addition, antonino notes more obsessive compulsive behaviors that are interfering withher life. Patient Active Problem List Diagnosis Date Noted Female pelvic pain 10/23/2016 Hyperlipidemia 03/05/2016 Anxiety 03/05/2016 Depressed 10/05/2015 Past Medical History: Diagnosis Date Anxiety Arthritis Depression Diverticulitis Hyperlipidemia IBS (irritable bowel syndrome) Post-menopausal STD (female) Review of Systems Constitutional: Positive for fatigue. Negative for activity change, appetite change and unexpected weight change. Endocrine: Negative for cold intolerance and heat intolerance. Hematological: Does not bruise/bleed easily. Psychiatric/Behavioral: Positive for sleep disturbance. Negative for agitation, behavioral problems, confusion, decreased concentration and suicidal ideas. The patient is not nervous/anxious. Vitals: Blood pressure 116/58, pulse 66, temperature 97.7 F (36.5 C), temperature source Temporal, resp. rate 16, height 1.67 m (5' 5.75 ), weight 74.5 kg (164 lb 3.2 oz), SpO2 97 %. Physical Exam Constitutional: She is oriented to person, place, and time. She appears well- developed and well-nourished. Cardiovascular: Normal rate and regular rhythm. Pulmonary/Chest: Effort normal and breath sounds normal. Neurological: She is alert and oriented to person, place, and time. Skin: Skin is warm and dry. Psychiatric: She has a normal mood and affect. Nursing note and vitals reviewed. Neurologic Exam Mental Status Oriented to person, place, and time. Assessment and Plan 1. Recurrent major depressive disorder, in partial remission Transitioned to trintellix off of prozac. Improving on trintellixt 5 mg dose of buspar ineffective. In crease dose to 10 mg tid prn. Previously failed wellbutrin and zoloft and cymbalta. cymbalta effective but caused migraines and was intolerable Has been on prozac for 33 years and feels that it is not working. 2. Anxiety * PARK GODINEZ - 03/30/2018 1:10 PM EST Antonino is here today for a refill on Simvastatin and trintellix. She also was recently started on Buspirone, she said she does not really think it is working. She stated she is taking 3 a day and it will just calm her down for about 30 minutes. in this encounter* Payton Duckworth MD - 05/11/2018 3:00 PM EST Formatting of this note may be different from the original. History of Present Illness Antonino presents today with follow up of depression. She states that she has battled depression for many years. At her last visit we decided to switch off prozac d/t ineffectiveness and trial trintellix. She has been on high dose of trintellix for 2 weeks and feels like it is starting to work somewhat. i'm starting to get a little bit of my focus back. Nearly 1 year ago, Antonino is here today for afollow of anxiety. At her last visit we increased dose of the With her mind racing and cant fall back to sleep. She has previously tried prozac, zoloft, wellbutrin, and cymbalta. cymbalta was effective but gave her migraines. In addition, antonino notes improved obsessive compulsive behaviors that are interfering with her life. My and I don't fight 1/2 as much. i'm not nearly as depressed. The only thing that bothersme is I get bored. This time of year is hard anyway. Patient Active Problem List Diagnosis Date Noted Recurrent major depressive disorder, in partial remission 03/30/2018 Female pelvic pain 10/23/2016 Hyperlipidemia 03/05/2016 Anxiety 03/05/2016 Depressed 10/05/2015 Past Medical History: Diagnosis Date Anxiety Arthritis Depression Diverticulitis Hyperlipidemia IBS (irritable bowel syndrome) Post-menopausal STD (female) Review of Systems Constitutional: Positive for fatigue. Negative for activity change, appetite change and unexpected weight change. Endocrine: Negative for cold intolerance and heat intolerance. Hematological: Does not bruise/bleed easily. Psychiatric/Behavioral: Positive for sleep disturbance. Negative for agitation, behavioral problems, confusion, decreased concentration and suicidal ideas. The patient is not nervous/anxious. Vitals: Blood pressure 118/68, pulse 73, temperature 97.3 F (36.3 C), temperature source Temporal, resp. rate 16, height 1.67 m (5' 5.75 ), weight 74.1 kg (163 lb 6.4 oz), SpO2 97 %. Physical Exam Constitutional: She is oriented to person, place, and time. She appears well- developed and well-nourished. Cardiovascular: Normal rate and regular rhythm. Pulmonary/Chest: Effort normal and breath sounds normal. Neurological: She is alert and oriented to person, place, and time. Skin: Skin is warm and dry. Psychiatric: She has a normal mood and affect. Nursing note and vitals reviewed. Neurologic Exam Mental Status Oriented to person, place, and time. Assessment and Plan 1. Recurrent major depressive disorder, in partial remission Transitioned to trintellix. Improved. Increase dose of buspar effective. No medication changes. Previously failed wellbutrin and zoloft and cymbalta. cymbalta effective but caused migraines and was intolerable Had been on prozac for 33 years and feels that it was not working. 2. Anxiety in this encounter* Chito Land MD - 05/02/2020 12:40 PM EST LARGE JOINT/BURSA INJECTION AND/OR ASPIRATION: R hip joint Date/Time: 05/02/2020 12:40 PM Supporting Documentation Indications: pain Procedure Details: Location: hip - R hip joint Local Anesthetic: bupivacaine 0.5% and lidocaine 1% Total Local Anesthetic: 4 mLs Guidance: ultrasound Ultrasound probe size: 4 mHz curvilinear Images were saved electronically. Probe: 4 mHz curvilinear Needle size: 22 G Needle Length: 4.0 inch Approach: anterior Medication Verification: I have personally verified and performed the final check of the medication(s) used in this procedure prior to administration. The following items were included during the verification process for medication(s) administered: drug name, strength, volume, expiration, physical integrity and appearance of the medication(s). Medications administered: 1 mL bupivacaine 0.5 %; 2 mL triamcinolone 40 MG/ML; 4 mg dexamethasone 4MG/ML; 4 mL lidocaine 10 mg/mL; 5 mL sodium chloride (PF) 0.9 % Patient tolerance: patient tolerated the procedure well with no immediate complications Consent: Consent was obtained prior to the procedure after discussion of the risks, benefits and alternatives, and expected outcomes were discussed with the patient. The possibilities of reaction to medication, bleeding, infection, the need for additional procedures, failure to diagnosis a condition, and creating a complication requiring operation were discussed with the patient. The patient concurred with the proposed plan, giving consent. Preparation: Patient was prepped in the usual sterile fashion. The patient was prepped with Chloraprep. Patient reported 100% relief while anesthetized. I have reviewed, edited and added to the above note and agree with those findings. Additions if any: Chito Land MD, CAQSM [facility] Press Maintainer - [facility] * Rachna Hunter - 05/02/2020 12:40 PM EST Associated Order(s): LARGE JOINT/BURSA INJECTION AND/OR ASPIRATION: R hip joint Post-Procedure Diagnose(s): Primary osteoarthritis of right hip LARGE JOINT/BURSA INJECTION AND/OR ASPIRATION: R hip joint Date/Time: 05/02/2020 12:40 PM Supporting Documentation Indications: pain Procedure Details: Location: hip - R hip joint Local Anesthetic: bupivacaine 0.5% and lidocaine 1% Total Local Anesthetic: 4 mLs Guidance: ultrasound Ultrasound probe size: 4 mHz curvilinear Images were saved electronically. Probe: 4 mHz curvilinear Needle size: 22 G Needle Length: 4.0 inch Approach: anterior Medication Verification: I have personally verified and performed the final check of the medication(s) used in this procedure prior to administration. The following items were included during the verification process for medication(s) administered: drug name, strength, volume, expiration, physical integrity and appearance of the medication(s). Medications administered: 1 mL bupivacaine 0.5 %; 2 mL triamcinolone 40 MG/ML; 4 mg dexamethasone 4MG/ML; 4 mL lidocaine 10 mg/mL; 5 mL sodium chloride (PF) 0.9 % Patient tolerance: patient tolerated the procedure well with no immediate complications Consent: Consent was obtained prior to the procedure after discussion of the risks, benefits and alternatives, and expected outcomes were discussed with the patient. The possibilities of reaction to medication, bleeding, infection, the need for additional procedures, failure to diagnosis a condition, and creating a complication requiring operation were discussed with the patient. The patient concurred with the proposed plan, giving consent. Preparation: Patient was prepped in the usual sterile fashion. The patient was prepped with Chloraprep. Patient reported 100% relief while anesthetized. documented in this encounter* Chito Land MD - 05/23/2020 9:10 AM EST Referred by: 64 year old female referred by self Chief Complaint Patient presents with Right Hip - Pain, Follow-up Patient presents for follow up on right hip pain after US guided right hip injection on 05/02/20. Patient reports she is doing great since then and is without pain today. This was the first injectionshe received. She is not currently doing any PT. She denies any new complaints or concerns at this time. Location: Right hip pain Quality: No pain at this time Duration: Intermittent NSAIDs? Ibuprofen Analgesics? Tylenol Other pain modalities? Ice Physical therapy? No Xrays? Right hip/pelvis 04/27/20 MRI? No Patient occupation, sport or other pertinent activity: Retired, walking, swimming, exercise bike Treatment performed or prescribed at last visit? US guided right hip injection 05/02/20 Response to treatment since last visit? Feels great without pain today Current Outpatient Medications: ascorbic acid 500 MG Tab, take 500 mg by mouth.., Disp: , Rfl: Calcium 150 MG Tab, Take by mouth daily., Disp: , Rfl: lamoTRIgine 100 MG tablet, Take 100 mg by mouth daily., Disp: , Rfl: MULTIPLE VITAMIN PO, take by mouth.., Disp: , Rfl: Premarin 0.625 MG/GM Cream, INSERT 0.5 GRAM VAGINALLY AT BEDTIME FOR 2 WEEKS THEN 2 TO 3 TIMES A WEEK THERAFTER, Disp: , Rfl: sildenafil citrate 100 MG Tab tablet, Take 100 mg by mouth., Disp: , Rfl: simvastatin 20 MG Tab tablet, Take 1 tablet by mouth every evening at 6 PM., Disp: 90 tablet, Rfl: 3 venlafaxine 37.5 MG Cap SR 24HR capsule XR, Take 37.5 mg by mouth daily., Disp: , Rfl: busPIRone 10 MG Tab tablet, Take 1 tablet by mouth 3 times daily as needed. (Patient not taking: Reported on 04/27/2020), Disp: 90 tablet, Rfl: 1 tobramycin-dexamethasone 0.3-0.1 % Suspension, 2 drops to bilateral ears tid, Disp: 1 Bottle, Rfl: 0 Vortioxetine HBr 20 MG Tab, Take 1 tablet by mouth daily. (Patient not taking: Reported on 04/27/2020), Disp: 90 tablet, Rfl: 2 Family History Problem Relation Age of Onset Glaucoma Mother Arthritis - Osteo Mother Lung Cancer Mother Lipid Disorder Father Emphysema Father Hypertension Father Dementia Father Lipid Disorder Sister Asthma Sister Depression Sister Breast Cancer Sister Social History Tobacco Use Smoking status: Never Smoker Smokeless tobacco: Never Used Substance Use Topics Alcohol use: Yes Comment: 2 beers a week Drug use: No Past Surgical History: Procedure Laterality Date EXTRACTION TOOTH 03/27/2018 HIP REPLACEMENT Left 2015 GALL BLADDER SURGERY 1998 HYSTERECTOMY 1988 endometriosis RELEASE CARPAL TUNNEL Bilateral more than 20 years ago, Dr. Roberts REVISION BREAST RECONSTRUCTION TUBAL LIGATION There were no vitals filed for this visit. Constitutional No fevers, chills or sweats, unintentional weight gain or weight loss, night pain, or night sweats except as per HPI. Cardiovascular No recent chest pain or palpitations. No claudication. No new or worsening lower extremity edema except as per HPI. Respiratory No new or worsening shortness of breath, dyspnea on exertion, orthopnea or paroxysmal nocturnal dyspnea except as per HPI. Gastrointestinal No recent heartburn or stomach upset, no history of ulcers except as per HPI. Musculoskeletal No joint pain, stiffness, or weakness except as per HPI. Endocrine No polyphagia, polydypsia, or polyuria. Hematologic No known or recent anemia, no excessive bleeding. Rheumatologic No history or currently active autoimmune or rheumatologic disease except as per HPI. Integumentary No new or relevant rashes or lesions except as per HPI. Neurologic No numbness, tingling, or weakness into her distal extremities except as per HPI. Constitutional Normal No acute distress. Well nourished. Well developed. Head/Face Normal Facial features - Normal. Eyebrows - Normal. Skull - Normal. Hair and scalp - Normal. Eyes Normal General - Right: Normal, Left: Normal. Lids/external - Right: Normal, Left: Normal. Conjunctiva - Right: Normal, Left: Normal. Ears Normal Inspection - Right: Normal, Left: Normal. Pinna - Right: Normal, Left: Normal. Nasopharynx Normal External nose - Normal. Nares - Right: Normal. Nasal Mucosa - Normal. Lips/teeth/gums - Normal. Buccal mucosa - Normal. Neck Exam Normal Inspection - Normal. Range of motion - Normal. Neck Exam Comments Supple. Respiratory Normal Inspection - Normal. Cough - Absent. Effort - Normal. Cardiovascular Normal Heart rate - Regular rate. Vascular Normal Pulses - Radial: Normal, Brachial: Normal, Dorsalis pedis: Normal, Posterior tibial: Normal. Capillary refill - Less than 2 seconds. Skin * Rash - Description: none. Extremity Normal No Edema. No Calf tenderness. Diabetic Foot Screen Normal Pulses - Dorsalis pedis: Normal, Posterior tibial: Normal. Neurological Normal Level of consciousness - Normal. Orientation - Normal. Memory - Normal. Psychiatric Normal No agitation. Appropriate mood and affect. Appropriate affect. Normal insight. Normal judgment. Interval exam: XR right hip/pelvis reviewed from 04/27/20 History obtained from patient ASSESSMENT and PLAN: ICD-10-CM 1. Primary osteoarthritis of right hip M16.11 2. Greater trochanteric bursitis of right hip M70.61 Antonino is doing well following her guided hip injection. Next steps will depend on how long she has relief. May consider repeat injection in the future if needed. No scheduled follow up at this time, but I will remain available in the future as needed. She can contact the office with any questions or concerns. Referrals: None Medications prescribed today: None Follow up plan: PRN I have reviewed, edited and added to the above note and agree with those findings. Additions if any: If she calls in with pain returning, she can schedule a possible US guided right hip injection 3 months or more from the last injection. Chito Land MD, [facility] Press Maintainer - [facility] * Corinne Shaffer - 05/23/2020 9:10 AM EST Referred by: 64 year old female referred by self Chief Complaint Patient presents with Right Hip - Pain, Follow-up Patient presents for follow up on right hip pain after US guided right hip injection on 05/02/20. Patient reports she is doing great since then and is without pain today. This was the first injectionshe received. She is not currently doing any PT. She denies any new complaints or concerns at this time. Location: Right hip pain Quality: No pain at this time Duration: Intermittent NSAIDs? Ibuprofen Analgesics? Tylenol Other pain modalities? Ice Physical therapy? No Xrays? Right hip/pelvis 04/27/20 MRI? No Patient occupation, sport or other pertinent activity: Retired, walking, swimming, exercise bike Treatment performed or prescribed at last visit? US guided right hip injection 05/02/20 Response to treatment since last visit? Feels great without pain today Current Outpatient Medications: ascorbic acid 500 MG Tab, take 500 mg by mouth.., Disp: , Rfl: Calcium 150 MG Tab, Take by mouth daily., Disp: , Rfl: lamoTRIgine 100 MG tablet, Take 100 mg by mouth daily., Disp: , Rfl: MULTIPLE VITAMIN PO, take by mouth.., Disp: , Rfl: Premarin 0.625 MG/GM Cream, INSERT 0.5 GRAM VAGINALLY AT BEDTIME FOR 2 WEEKS THEN 2 TO 3 TIMES A WEEK THERAFTER, Disp: , Rfl: sildenafil citrate 100 MG Tab tablet, Take 100 mg by mouth., Disp: , Rfl: simvastatin 20 MG Tab tablet, Take 1 tablet by mouth every evening at 6 PM., Disp: 90 tablet, Rfl: 3 venlafaxine 37.5 MG Cap SR 24HR capsule XR, Take 37.5 mg by mouth daily., Disp: , Rfl: busPIRone 10 MG Tab tablet, Take 1 tablet by mouth 3 times daily as needed. (Patient not taking: Reported on 04/27/2020), Disp: 90 tablet, Rfl: 1 tobramycin-dexamethasone 0.3-0.1 % Suspension, 2 drops to bilateral ears tid, Disp: 1 Bottle, Rfl: 0 Vortioxetine HBr 20 MG Tab, Take 1 tablet by mouth daily. (Patient not taking: Reported on 04/27/2020), Disp: 90 tablet, Rfl: 2 Family History Problem Relation Age of Onset Glaucoma Mother Arthritis - Osteo Mother Lung Cancer Mother Lipid Disorder Father Emphysema Father Hypertension Father Dementia Father Lipid Disorder Sister Asthma Sister Depression Sister Breast Cancer Sister Social History Tobacco Use Smoking status: Never Smoker Smokeless tobacco: Never Used Substance Use Topics Alcohol use: Yes Comment: 2 beers a week Drug use: No Past Surgical History: Procedure Laterality Date EXTRACTION TOOTH 03/27/2018 HIP REPLACEMENT Left 2015 GALL BLADDER SURGERY 1998 HYSTERECTOMY 1987 endometriosis RELEASE CARPAL TUNNEL Bilateral more than 20 years ago, Dr. Roberts REVISION BREAST RECONSTRUCTION TUBAL LIGATION There were no vitals filed for this visit. Constitutional No fevers, chills or sweats, unintentional weight gain or weight loss, night pain, or night sweats except as per HPI. Cardiovascular No recent chest pain or palpitations. No claudication. No new or worsening lower extremity edema except as per HPI. Respiratory No new or worsening shortness of breath, dyspnea on exertion, orthopnea or paroxysmal nocturnal dyspnea except as per HPI. Gastrointestinal No recent heartburn or stomach upset, no history of ulcers except as per HPI. Musculoskeletal No joint pain, stiffness, or weakness except as per HPI. Endocrine No polyphagia, polydypsia, or polyuria. Hematologic No known or recent anemia, no excessive bleeding. Rheumatologic No history or currently active autoimmune or rheumatologic disease except as per HPI. Integumentary No new or relevant rashes or lesions except as per HPI. Neurologic No numbness, tingling, or weakness into her distal extremities except as per HPI. Constitutional Normal No acute distress. Well nourished. Well developed. Head/Face Normal Facial features - Normal. Eyebrows - Normal. Skull - Normal. Hair and scalp - Normal. Eyes Normal General - Right: Normal, Left: Normal. Lids/external - Right: Normal, Left: Normal. Conjunctiva - Right: Normal, Left: Normal. Ears Normal Inspection - Right: Normal, Left: Normal. Pinna - Right: Normal, Left: Normal. Nasopharynx Normal External nose - Normal. Nares - Right: Normal. Nasal Mucosa - Normal. Lips/teeth/gums - Normal. Buccal mucosa - Normal. Neck Exam Normal Inspection - Normal. Range of motion - Normal. Neck Exam Comments Supple. Respiratory Normal Inspection - Normal. Cough - Absent. Effort - Normal. Cardiovascular Normal Heart rate - Regular rate. Vascular Normal Pulses - Radial: Normal, Brachial: Normal, Dorsalis pedis: Normal, Posterior tibial: Normal. Capillary refill - Less than 2 seconds. Skin * Rash - Description: none. Extremity Normal No Edema. No Calf tenderness. Diabetic Foot Screen Normal Pulses - Dorsalis pedis: Normal, Posterior tibial: Normal. Neurological Normal Level of consciousness - Normal. Orientation - Normal. Memory - Normal. Psychiatric Normal No agitation. Appropriate mood and affect. Appropriate affect. Normal insight. Normal judgment. Interval exam: XR right hip/pelvis reviewed from 04/27/20 History obtained from patient ASSESSMENT and PLAN: ICD-10-CM 1. Primary osteoarthritis of right hip M16.11 2. Greater trochanteric bursitis of right hip M70.61 Antonino is doing well following her guided hip injection. Next steps will depend on how long she has relief. May consider repeat injection in the future if needed. No scheduled follow up at this time, but I will remain available in the future as needed. She can contact the office with any questions or concerns. Referrals: None Medications prescribed today: None Follow up plan: PRN documented in this encounter* Payton Duckworth MD - 07/27/2018 8:50 AM EDT History of Present Illness Antonino presents for evaluation of bilateral ear pain, hearing loss. Onset of symptoms was 1 week ago, clinical course waxing and waning since that time. Associated symptoms include: Plugged sensation,pain. Aggravating factors include: swimming. Alleviating factors include: none. Treatments tried include: otc ear drops for swimmer's ear. Review of Systems Constitutional: Negative for chills, fever and unexpected weight change. HENT: Positive for ear pain and hearing loss. Negative for congestion, ear discharge, facial swelling, rhinorrhea, sinus pressure and sinus pain. Respiratory: Negative for cough. Vitals: Blood pressure 110/60, pulse 65, temperature 98.5 F (36.9 C), temperature source Temporal, resp. rate 16, height 1.67 m (5' 5.75 ), weight 73.8 kg (162 lb 12.8 oz), SpO2 96 %. Physical Exam Constitutional: She appears well-developed and well-nourished. HENT: Left ear canal with significant debris, irrigated and removed. Canal erythematous and edematous. Right canal with erythema and edema. Non occlusive debris . Nursing note and vitals reviewed. Assessment and Plan 1. Acute swimmer's ear of both sides New problem Treat with steroids and antibiotics. * PARK GODINEZ - 07/27/2018 8:50 AM EDT Antonino is here today for an earache, onset 1 week. She states it is in both ears and she can hardly hear. She said it is not as painful today, before she could hardly touch her ears. documented in this encounter* Chito Land MD - 04/27/2020 8:40 AM EST Referred by: 64 year old female referred self. Chief Complaint Patient presents with Right Hip - Pain Right hip pain Patient came in for right hip pain that started bothering her a few months ago. Patient did not have a specific ESTRADA but attributed it to increased walking for exercise. Patient reported history of left hip arthroplasty. Her current pain was a intermittent Ache that progressed to stabbing with increased walking or sitting. No numbness or tingling noted. Location: Right hip pain Quality: Ache/Stabbing Duration: Intermittent NSAIDs? Ibuprofen/Tylenol Analgesics? No Other pain modalities? Ice Physical therapy? No Xrays? No MRI? No Patient occupation, sport or other pertinent activity: Retired, walking, swimming, exercise bike Current Outpatient Medications: ascorbic acid 500 MG Tab, take 500 mg by mouth.., Disp: , Rfl: busPIRone 10 MG Tab tablet, Take 1 tablet by mouth 3 times daily as needed., Disp: 90 tablet, Rfl: 1 Calcium 150 MG Tab, Take by mouth daily., Disp: , Rfl: MULTIPLE VITAMIN PO, take by mouth.., Disp: , Rfl: sildenafil citrate 100 MG Tab tablet, Take 100 mg by mouth., Disp: , Rfl: simvastatin 20 MG Tab tablet, Take 1 tablet by mouth every evening at 6 PM., Disp: 90 tablet, Rfl: 3 tobramycin-dexamethasone 0.3-0.1 % Suspension, 2 drops to bilateral ears tid, Disp: 1 Bottle, Rfl: 0 Vortioxetine HBr 20 MG Tab, Take 1 tablet by mouth daily., Disp: 90 tablet, Rfl: 2 Family History Problem Relation Age of Onset Glaucoma Mother Arthritis - Osteo Mother Lung Cancer Mother Lipid Disorder Father Emphysema Father Hypertension Father Dementia Father Lipid Disorder Sister Asthma Sister Depression Sister Breast Cancer Sister Social History Tobacco Use Smoking status: Never Smoker Smokeless tobacco: Never Used Substance Use Topics Alcohol use: Yes Comment: 2 beers a week Drug use: No Past Surgical History: Procedure Laterality Date EXTRACTION TOOTH 03/27/2018 HIP REPLACEMENT Left 2015 GALL BLADDER SURGERY 1998 HYSTERECTOMY 1987 endometriosis RELEASE CARPAL TUNNEL Bilateral more than 20 years ago, Dr. Roberts REVISION BREAST RECONSTRUCTION TUBAL LIGATION Smoking Status Never Smoker Constitutional No fevers, chills or sweats, unintentional weight gain or weight loss, night pain, or night sweats except as per HPI. Cardiovascular No recent chest pain or palpitations. No claudication. No new or worsening lower extremity edema except as per HPI. Respiratory No new or worsening shortness of breath, dyspnea on exertion, orthopnea or paroxysmal nocturnal dyspnea except as per HPI. Gastrointestinal No recent heartburn or stomach upset, no history of ulcers except as per HPI. Musculoskeletal No joint pain, stiffness, or weakness except as per HPI. Endocrine No polyphagia, polydypsia, or polyuria. Hematologic No known or recent anemia, no excessive bleeding. Rheumatologic No history or currently active autoimmune or rheumatologic disease except as per HPI. Integumentary No new or relevant rashes or lesions except as per HPI. Neurologic No numbness, tingling, or weakness into her distal extremities except as per HPI. Constitutional Normal No acute distress. Well nourished. Well developed. Head/Face Normal Facial features - Normal. Eyebrows - Normal. Skull - Normal. Hair and scalp - Normal. Eyes Normal General - Right: Normal, Left: Normal. Lids/external - Right: Normal, Left: Normal. Conjunctiva - Right: Normal, Left: Normal. Ears Normal Inspection - Right: Normal, Left: Normal. Pinna - Right: Normal, Left: Normal. Nasopharynx Normal External nose - Normal. Nares - Right: Normal. Nasal Mucosa - Normal. Lips/teeth/gums - Normal. Buccal mucosa - Normal. Neck Exam Normal Inspection - Normal. Range of motion - Normal. Neck Exam Comments Supple. Respiratory Normal Inspection - Normal. Cough - Absent. Effort - Normal. Cardiovascular Normal Heart rate - Regular rate. Vascular Normal Pulses - Radial: Normal, Brachial: Normal, Dorsalis pedis: Normal, Posterior tibial: Normal. Capillary refill - Less than 2 seconds. Skin * Rash - Description: none. Extremity Normal No Edema. No Calf tenderness. Diabetic Foot Screen Normal Pulses - Dorsalis pedis: Normal, Posterior tibial: Normal. Neurological Normal Level of consciousness - Normal. Orientation - Normal. Memory - Normal. Psychiatric Normal No agitation. Appropriate mood and affect. Appropriate affect. Normal insight. Normal judgment. Right hip Inspection: No erythema, ecchymosis, swelling or deformity. No open wounds. Palpation: Tender to greater trochanter and SI joint ROM: Intact and symmetric FROM with internal/external rotation, flexion/extension Laxity: No laxity appreciated Strength: Intact active flexion and extension of the hip. Special Maneuvers: Negative Alfred s, negative log roll, positive IDA, negative FADIR. XR reviewed from today of the right hip/pelvis ASSESSMENT AND PLAN: 1. Primary osteoarthritis of right hip Discussed treatment options available and elected to proceed with plans for US guided right hip joint injection. Although she was tender to palpation of the SI joint and lateral hip, my sense is thatmost of her pain is coming from within the joint. The evidence based treatment of ostearthritis was discussed today and handouts were given. Stepwise approach to treatment includes the following: Supplements - ASU 300mg for large joints, glucosamine/chondroitin for small joints, omega-3-FA's for heart health and some evidence for improvement in joint pain Medications - acetaminophen can be taken daily, not to exceed 3000mg in day; NSAIDs can be more effective at pain relief, however come with potentially consequences if taken daily including but not limited to gastric toxicity, GI bleeds, renal damage and chronic kidney disease, increased risk of heart attack. Bracing - depends on the case Exercise and physical therapy - recommended to maintain strength and range of motion of the affected joint; some insurances require PT prior to authorization for some injecitons and/or surgery. Injections - Corticosteroids are good to calm down inflammation, the gel medications (hyaluronic acid) are longer lasting and healthy, and PRP (platelet rich plasma) is a newer option that is healthy for the joint but considered experimental by insurances and so they will not cover it. Surgery - arthroscopic surgery no longer recommended as treatment for OA, although some specific cases may still benefit. The gold standard and definitive treatment for OA is joint replacement (knees, hips, shoulders, etc.) vs. joint fusion (sacroiliac joint, small joints, some intermediate sized joints). 2. Greater trochanteric bursitis of right hip Greater trochanteric pain syndrome refers to the pain generated at the lateral enthesis of the hip which includes the gluteal cuff, iliotibial band tendon and the trochanteric bursa. This is an entity that is very complex and involves not only these structures but often times many others. In order to cure this problem, we must also understand its complexities. At the heart of the problem we typically find weakness in the hip abductor muscles. We must obtain appropriate strength in those muscles but often we must also attend to muscular restrictions in range of motion, adhesion to surrounding musculature, spasming, joint restriction and dysfunction including the hip joint, sacroiliac jointand lower lumbar spine, and focal tendon pain. Manual treatments offer an important adjunct to strengthening. 3. Right hip pain - XR HIP WITH PELVIS RIGHT; Future Referrals: None Medications prescribed today: None Follow up plan: SportsUS: Right hip We discussed the natural history of this problem and usual treatments. We discussed possible treatment options including conservative, aggressive, invasive and non-invasive. These options were explained in detail. The patient and/or guardian agreed with the above assessment and plan. Differential diagnoses of hip pain were considered including but not limited to degenerative change, internal derangement, fracture and any other severely limiting injury. I have reviewed, edited and added to the above note and agree with those findings. Additions if any: Chito Land MD, [facility] Press Maintainer - [facility] * Corinne Shaffer - 04/27/2020 8:40 AM EST Right hip Inspection: No erythema, ecchymosis, swelling or deformity. No open wounds. Palpation: Tender to greater trochanter and SI joint ROM: Intact and symmetric FROM with internal/external rotation, flexion/extension Laxity: No laxity appreciated Strength: Intact active flexion and extension of the hip. Special Maneuvers: Negative Alfred s, negative log roll, positive IDA, negative FADIR. XR reviewed from today of the right hip/pelvis ASSESSMENT AND PLAN: 1. Primary osteoarthritis of right hip Discussed treatment options available and elected to proceed with plans for US guided right hip joint injection. Although she was tender to palpation of the SI joint and lateral hip, my sense is thatmost of her pain is coming from within the joint. The evidence based treatment of ostearthritis was discussed today and handouts were given. Stepwise approach to treatment includes the following: Supplements - ASU 300mg for large joints, glucosamine/chondroitin for small joints, omega-3-FA's for heart health and some evidence for improvement in joint pain Medications - acetaminophen can be taken daily, not to exceed 3000mg in day; NSAIDs can be more effective at pain relief, however come with potentially consequences if taken daily including but not limited to gastric toxicity, GI bleeds, renal damage and chronic kidney disease, increased risk of heart attack. Bracing - depends on the case Exercise and physical therapy - recommended to maintain strength and range of motion of the affected joint; some insurances require PT prior to authorization for some injecitons and/or surgery. Injections - Corticosteroids are good to calm down inflammation, the gel medications (hyaluronic acid) are longer lasting and healthy, and PRP (platelet rich plasma) is a newer option that is healthy for the joint but considered experimental by insurances and so they will not cover it. Surgery - arthroscopic surgery no longer recommended as treatment for OA, although some specific cases may still benefit. The gold standard and definitive treatment for OA is joint replacement (knees, hips, shoulders, etc.) vs. joint fusion (sacroiliac joint, small joints, some intermediate sized joints). 2. Greater trochanteric bursitis of right hip Greater trochanteric pain syndrome refers to the pain generated at the lateral enthesis of the hip which includes the gluteal cuff, iliotibial band tendon and the trochanteric bursa. This is an entity that is very complex and involves not only these structures but often times many others. In order to cure this problem, we must also understand its complexities. At the heart of the problem we typically find weakness in the hip abductor muscles. We must obtain appropriate strength in those muscles but often we must also attend to muscular restrictions in range of motion, adhesion to surrounding musculature, spasming, joint restriction and dysfunction including the hip joint, sacroiliac jointand lower lumbar spine, and focal tendon pain. Manual treatments offer an important adjunct to strengthening. 3. Right hip pain - XR HIP WITH PELVIS RIGHT; Future Referrals: None Medications prescribed today: None Follow up plan: SportsUS: Right hip We discussed the natural history of this problem and usual treatments. We discussed possible treatment options including conservative, aggressive, invasive and non-invasive. These options were explained in detail. The patient and/or guardian agreed with the above assessment and plan. Differential diagnoses of hip pain were considered including but not limited to degenerative change, internal derangement, fracture and any other severely limiting injury. * Roosevelt De Dios - 04/27/2020 8:40 AM EST Referred by: 64 year old female referred self. Chief Complaint Patient presents with Right Hip - Pain Right hip pain Patient came in for right hip pain that started bothering her a few months ago. Patient did not have a specific ESTRADA but attributed it to increased walking for exercise. Patient reported history of left hip arthroplasty. Her current pain was a intermittent Ache that progressed to stabbing with increased walking or sitting. No numbness or tingling noted. Location: Right hip pain Quality: Ache/Stabbing Duration: Intermittent NSAIDs? Ibuprofen/Tylenol Analgesics? No Other pain modalities? Ice Physical therapy? No Xrays? No MRI? No Patient occupation, sport or other pertinent activity: Retired, walking, swimming, exercise bike Current Outpatient Medications: ascorbic acid 500 MG Tab, take 500 mg by mouth.., Disp: , Rfl: busPIRone 10 MG Tab tablet, Take 1 tablet by mouth 3 times daily as needed., Disp: 90 tablet, Rfl: 1 Calcium 150 MG Tab, Take by mouth daily., Disp: , Rfl: MULTIPLE VITAMIN PO, take by mouth.., Disp: , Rfl: sildenafil citrate 100 MG Tab tablet, Take 100 mg by mouth., Disp: , Rfl: simvastatin 20 MG Tab tablet, Take 1 tablet by mouth every evening at 6 PM., Disp: 90 tablet, Rfl: 3 tobramycin-dexamethasone 0.3-0.1 % Suspension, 2 drops to bilateral ears tid, Disp: 1 Bottle, Rfl: 0 Vortioxetine HBr 20 MG Tab, Take 1 tablet by mouth daily., Disp: 90 tablet, Rfl: 2 Family History Problem Relation Age of Onset Glaucoma Mother Arthritis - Osteo Mother Lung Cancer Mother Lipid Disorder Father Emphysema Father Hypertension Father Dementia Father Lipid Disorder Sister Asthma Sister Depression Sister Breast Cancer Sister Social History Tobacco Use Smoking status: Never Smoker Smokeless tobacco: Never Used Substance Use Topics Alcohol use: Yes Comment: 2 beers a week Drug use: No Past Surgical History: Procedure Laterality Date EXTRACTION TOOTH 03/27/2018 HIP REPLACEMENT Left 2015 GALL BLADDER SURGERY 1998 HYSTERECTOMY 1987 endometriosis RELEASE CARPAL TUNNEL Bilateral more than 20 years ago, Dr. Roberts REVISION BREAST RECONSTRUCTION TUBAL LIGATION Smoking Status Never Smoker Constitutional No fevers, chills or sweats, unintentional weight gain or weight loss, night pain, or night sweats except as per HPI. Cardiovascular No recent chest pain or palpitations. No claudication. No new or worsening lower extremity edema except as per HPI. Respiratory No new or worsening shortness of breath, dyspnea on exertion, orthopnea or paroxysmal nocturnal dyspnea except as per HPI. Gastrointestinal No recent heartburn or stomach upset, no history of ulcers except as per HPI. Musculoskeletal No joint pain, stiffness, or weakness except as per HPI. Endocrine No polyphagia, polydypsia, or polyuria. Hematologic No known or recent anemia, no excessive bleeding. Rheumatologic No history or currently active autoimmune or rheumatologic disease except as per HPI. Integumentary No new or relevant rashes or lesions except as per HPI. Neurologic No numbness, tingling, or weakness into her distal extremities except as per HPI. Constitutional Normal No acute distress. Well nourished. Well developed. Head/Face Normal Facial features - Normal. Eyebrows - Normal. Skull - Normal. Hair and scalp - Normal. Eyes Normal General - Right: Normal, Left: Normal. Lids/external - Right: Normal, Left: Normal. Conjunctiva - Right: Normal, Left: Normal. Ears Normal Inspection - Right: Normal, Left: Normal. Pinna - Right: Normal, Left: Normal. Nasopharynx Normal External nose - Normal. Nares - Right: Normal. Nasal Mucosa - Normal. Lips/teeth/gums - Normal. Buccal mucosa - Normal. Neck Exam Normal Inspection - Normal. Range of motion - Normal. Neck Exam Comments Supple. Respiratory Normal Inspection - Normal. Cough - Absent. Effort - Normal. Cardiovascular Normal Heart rate - Regular rate. Vascular Normal Pulses - Radial: Normal, Brachial: Normal, Dorsalis pedis: Normal, Posterior tibial: Normal. Capillary refill - Less than 2 seconds. Skin * Rash - Description: none. Extremity Normal No Edema. No Calf tenderness. Diabetic Foot Screen Normal Pulses - Dorsalis pedis: Normal, Posterior tibial: Normal. Neurological Normal Level of consciousness - Normal. Orientation - Normal. Memory - Normal. Psychiatric Normal No agitation. Appropriate mood and affect. Appropriate affect. Normal insight. Normal judgment. documented in this encounter Reason for Referral Status Reason Specialty Diagnoses / Procedures Referre d By Contact Referred To Contact Closed Diagnoses Screening for breast cancer Procedures MAMMO SCREENING BILATERAL Payton Duckworth MD [address] [place] [id number] Reason appt 07/12/22 at 10am pt needs consult to discuss right hip pain Diagnosis 1 Hip pain (M25.559) Referral Organization [facility] Referring Provider First Name Karen Referring Provider Last Name Walker Referring Provider Specialty Family Prac ernie Referred Organization [facility] Referred Provider Finn Ortez II Referred Address [address] [place],[address] Referred Provider Specialty Orthopedic S urgery Referral Priority Routine Referral Appointment Date 2022-07-12 General Notes Sheryl Engle 06/13/2022 10:20:15 AM > referral sent p2p. pt understands she will be contacted to schedule this appt. 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 pt understands that she will be contacted to schedule this appt. Reason appt audiology con sult for decreased hearing Diagnosis 1 Decreased hearing (H 91.90) [facility] Referring Provider First Name Karen Referring Provider Last Name Walker Referring Provider Specialty [facility] ernie Referred Organization [facility] Referred Address ,[place],[address] Referred Provider Specialty Audiologists Referral Priority Routine General Notes Judit Engleh 04/15/2023 10:18:38 AM > referral faxed to [facility] in Dr Arshad' office. pt and understand they will be contacted to schedule this appt. will not receive audiology report, so referral will be closed once appt is confirmed. Chief Complaint and Reason for Visit Chief Complaint BH Op Sp Rt Hip Pain Nx OP SP RT HIP INCREASED PAIN M16.11 - Unilateral primary osteoarthritis, right Reason for Visit Greater trochanteric bursitis of right hip Primary osteoarthritis of right hip Additional Source Comments INFORMATION SOURCE (unrecogn ized section and content) DATE CREATED AUTHOR 10/20/2017 [facility] DATE CREATED AUTHOR AUTHOR'S ORGANIZ ATION 10/24/2017 [facility] DATE CREATED AUTHOR AUTHOR'S ORGANIZ ATION 11/12/2017 [facility] DATE CREATED AUTHOR AUTHOR'S ORGANIZ ATION 11/12/2017 [facility] DATE CREATED AUTHOR AUTHOR'S ORGANIZ ATION 12/20/2017 [facility] DATE CREATED AUTHOR AUTHOR'S ORGANIZ ATION 04/06/2018 [facility] DATE CREATED AUTHOR AUTHOR'S ORGANIZ ATION 07/30/2018 [facility] DATE CREATED AUTHOR AUTHOR'S ORGANIZ ATION 02/10/2021 [facility] DATE CREATED AUTHOR AUTHOR'S ORGANIZ ATION 06/11/2021 [facility] DATE CREATED AUTHOR AUTHOR'S ORGANIZ ATION 08/28/2022 [facility] DATE CREATED AUTHOR AUTHOR'S ORGANIZ ATION 06/16/2023 [facility] DATE CREATED AUTHOR AUTHOR'S ORGANIZ ATION 06/16/2023 [facility] EPIC Reason for Visit (unrecogniz ed section and content) Reason Comments Medication Management Reason Comments Medication Refill Reason Comments Prescription Clarification Status Reason Specialty Diagnoses / Procedures Referre d By Contact Referred To Contact Closed Diagnoses Screening for breast cancer Procedures MAMMO SCREENING BILATERAL Payton Duckworth MD [address] [place] [id number] Reason Comments Depression Antonino feels pretty g ood. Holidays didn't affect her too much. Overall she feels pretty level. Reason Comments Joint Injection Reason Comments Pain Follow-up Reason Comments Ear Pain Reason Comments Pain Right hip pain Care Teams (unrecognized sec tion and content) Team Status: Active Member Role Status Dates Karen Cardoso DO Primary Care Provider Active Team Status: Active Member Role Status Dates Karen Cardoso DO Primary Care Provider Active S tart: March 18, 2023 Floyd Hampton MD Attending Provider Active Start: March 18, 2023 Team Status: Inactive Member Role Status Dates Finn Ortez II, MD Attending Provider Active Start: May 14, 2023 End: May 14, 2023 Team Status: Inactive Member Role Status Dates Karen Cardoso DO Primary Care Provider Active S tart: June 13, 2023 End: June 13, 2023 Finn Ortez II, MD Attending Provider Active Start: June 13, 2023 End: June 13, 2023 Team Status: Active Member Role Status Dates Karen Cardoso DO Primary Care Provider Active S tart: June 13, 2023 Finn Ortez II, MD Attending Provider Active Start: June 13, 2023 Team Status: Inactive Member Role Status Dates Karen Cardoso , Primary Care Provider Active Finn Ortez II, MD Attending Provider Active Goals (unrecognized section and content) Goals may be documented in a n alternate section FOR RECORDS PERTAINING TO PATIENTS WHO ARE OR HAVE BEEN ENROLLED IN A CHEMICAL DEPENDENCY/SUBSTANCEABUSE PROGRAM, SOME INFORMATION MAY BE OMITTED. This clinical summary was aggregated from multiple sources. Caution should be exercised in using it in the provision of clinical care. This summary normalizes information from multiple sources, and as a consequence, information in this document may materially change the coding, format and clinical context of patient data. In addition, data may be omitted in some cases. CLINICAL DECISIONS SHOULD BE BASED ON THE PRIMARY CLINICAL RECORDS. [facility] [employer] [facility]. provides no warranty or guarantee of the accuracy or completeness of information in this document.
[2023-06-23 10:42] LABS: Basophils Percent Auto 0.4 % (0.2-2.0); Eosinophils Absolute Auto 0.2 10^3/uL (0.0-0.7); Eosinophils Percent Auto 1.8 % (0.9-7.0); Hematocrit 44.3 % (36.0-48.0); Immature Granulocytes Abs Auto 0.08 10^3/uL (0.00-0.03); Immature Granulocytes Pct Auto 0.8 % (0.0-0.5); Lymphocytes Absolute Auto 1.8 10^3/uL (1.2-3.8); Lymphocytes Percent Auto 18.7 % (20.5-60.0); Mean Corpuscular HGB Conc 31.6 g/dL (29.9-35.2); Mean Corpuscular Hemoglobin 28.4 pg (26.7-34.0); Mean Corpuscular Volume 89.9 fL (81.0-99.0); Mean Platelet Volume 8.6 fL (9.5-13.5); Monocytes Absolute Auto 0.8 10^3/uL (0.3-0.8); Monocytes Percent Auto 7.9 % (1.7-12.0); Neutrophils Absolute Auto 6.8 10^3/uL (1.4-6.5); Neutrophils Percent Auto 70.4 % (43.0-75.0); Platelet Count 362 10^3/uL (150-450); Red Blood Count 4.93 10^6/uL (4.20-5.40); Red Cell Distribution Width 14.1 % (11.0-15.0); White Blood Count 9.6 10^3/uL (4.0-11.0)
[2023-06-23 11:01] LABS: Estimated Average Glucose 114 mg/dL; Glycohemoglobin A1C 5.6 % (4.5-6.2)
[2023-06-23 11:29] LABS: Alanine Aminotransferase 29 U/L (14-59); Albumin Level 3.7 g/dL (3.4-5.0); Alkaline Phosphatase 88 U/L (46-116); Anion Gap 14.4; Aspartate Amino Transferase 18 U/L (15-37); BUN Creatinine Ratio 19.4; Bilirubin Total 0.6 mg/dL (0.2-1.0); Calcium 9.1 mg/dL (8.5-10.1); Carbon Dioxide 30.4 mmol/L (21.0-32.0); Chloride 104 mmol/L (98-107); Chol HDL Ratio 2.7; Cholesterol 196 mg/dL (<=200); Estimated GFR (African America >60 (>=60); Estimated GFR (Non-African Ame >60 (>=60); Globulin 3.6 g/dL; Glucose 97 mg/dL (74-106); HDL Cholesterol 73 mg/dL (40-60); Potassium 3.8 mmol/L (3.5-5.1); Sodium 145 mmol/L (136-145); Total Protein 7.3 g/dL (6.4-8.2); Triglycerides 99 mg/dL (<=150); VLDL CHOLESTEROL 19.8 mg/dL
== END 2023-06-23 10:17 | disposition home or self-care (01) ==
PROVIDERS: PCP Family Medicine; Visit Provider Family Medicine
DX: E78.5 Hyperlipidemia, unspecified (principal); R73.9 Hyperglycemia, unspecified; Z79.899 Other long term (current) drug therapy
CPT/HCPCS: 36415; 80053; 80061; 83036; 85025

== ENCOUNTER 2023-12-06 08:00 | Outpatient (OUT) | payer MEDICARE, SELFPAY ==
--- OUTSIDE RECORDS SUMMARY | 2023-12-06 08:06 | XMS_ITS | CCD ---
Author Organization [facility] Care Team Providers Care Sticker Hand Name Role Phone Desire Britt Unavailable DESIRE BRITT Unavailable Unavailab CHIKI Bagley Unavailable Autumn vailable CHIKI BRITT Unavailable Autumn vailable DESIRE BRITT Unavailable Unavailab le HAY, AMI Unavailable Unavailable HAY, AMI Unavailable Unavailable UNKNOWN, PROVIDER Unavailable Unavailable DESIRE BRITT Unavailable Unavailable ISIDRO BIRCH Unavailable Unavailable QUETAISIDRO Gurrola Unavailable Unavailable DESIRE BRITT Unavailable Unavailab le QUETAISIDRO Gurrola Unavailable Unavailable RERICKY CARPENTER Unavailable Unavailable QUETAISIDRO GurrolaY Unavailable Unavailable DESIRE BRITT Unavailable Unavailab le DESIRE BRITT Unavailable Unavailab le Queta, J Kristopher Unavailable [...] Care Unavailable Karen Cardoso Primary Care Provider [phone] Chiki Britt Primary Care Provid er KAREN CARDOSO Primary Care Unavailable NIKATOSHAShantel JAQUELINE Attending Unavailable Karen Cardoso Unavailable DO Karen Cardoso Primary Care Provider MD Finn Ortez II Attending Provider Finn Ortez II Unavailable REQUEST, NONE LISTED Consulting Unavaila ble WALKER, DR JONES Primary Care Unavailable GIRVIN, DR JONES Attending Unavailable GIRVIN, DR JONES Admitting Unavailable GIRVIN, DR JONES Primary Care Unavailable GIRVIN, DR JONES Consulting Unavailable GIRVIN, DR JONES Attending Unavailable GIRVIN, DR JONES Admitting Unavailable GIRVIN, DR JONES Primary Care Unavailable GIRVIN, DR JONES Consulting Unavailable GIRVIN, DR JONES Attending Unavailable GIRVIN, DR JONES Admitting Unavailable GIRVIN, DR JONES Primary Care Unavailable CRALOTA ., ROWENA Admitting Unavailable CARLOTA ., ROWENA [...] ble WALKER, DR JONES Primary Care Unavailable DO Karen Cardoso Primary Care Provider [phone] MD Floyd Hampton Attending Provider [phone] MD Finn Ortez II Attending Provider [phone] SHERYL COOPER Attending Unavailable KAREN CARDOSO Referring Unavailable MILAGROS LAI Attending Unavailable TERRANCE WOODARD Attending Unavailable JASON JENSEN Attending Unavailable TERRANCE WOODARD Attending Unavailable JASON JENSEN Referring Unavailable JASON JENSEN Referring Unavailable TERRANCE WOODARD Attending Unavailable ANGELA DUBOSE Attending Unavailable DO Karen Cardoso Primary Care Provider [phone] MD Floyd Hampton Attending Provider DO Karen Cardoso Attending Provider DO Karen Cardoso Primary Care Provider [phone] MD Floyd Hampton Attending Provider [phone] MD Finn Ortez II Attending Provider [phone] Karen Cardoso Admitting Unavailable Karen Cardoso Primary Care Unavailable Karen Cardoso Attending Unavailable Karen Cardoso Primary Care Unavailable Finn Ortez II Admitting UnavailFinn Pandya II Attending Unavailgeoffrey e Karen Cardoso Primary Care Unavailable Floyd Hampton Admitting Unavailab Floyd Solis Attending Unavailab Karen Helms Primary Care Unavailable Finn Ortez II Admitting UnavailFinn Pandya II Attending Lawrence e Allergies Allergy Classification Reported Allergen(s) Allergy Type Date of Onset Reaction(s) Facility (20 sources) acetaminophen / oxyCODONE; Translations: [OXYCODONE-ACETAM INOPHEN] Drug Allergy 5 Itching [facility] (20 sources) Acetaminophen / oxyCODONE; Translations: [Percocet] Drug Allergy 3 [facility] (19 sources) DULoxetine Drug Allergy headaches [facility] [employer] Other (19 sources) FLUoxetine Drug Allergy doesn't work [facility] [employer] Other (9 sources) Acetaminophen; Translations: [acetaminophen] Drug Allergy 4 [facility] (9 sources) DULoxetine; Translations: [duloxetine] Drug Allergy 4 [facility] (9 sources) FLUoxetine; Translations: [fluoxetine] Drug Allergy 4 doesn't work [facility] (9 sources) oxyCODONE; Translations: [oxycodone] Drug Allergy 4 [facility] Medications Current Medications Medication Drug Class(es) [...] tablet Orally Once a day Nov, Active Calcium (20 sources) Phosphate Binder, Calcium Calcium Active Calcium 150 MG T ab Take by mouth daily. 0 Active take 1 tablet by mouth once andrey y Calcium 150 MG Tab Take by mouth daily. Active calcium carbonate 1500 mg oral tablet (6 sources) Start: 06-26-2023 take 1 tablet by mouth once daily Calcium Carbonate (Calcium 600) 600 mg calcium (1,500 mg) tablet Active 600 MG PO Daily June 26, 2023 1:00am dexamethasone 1 mg/ml / tobramycin 3 mg/ml ophthalmic suspension (5 sources) Aminoglycoside Antibacterial, Corticosteroid Start: 07-27-2018 End: 08-03-2018 tobramycin-dexam ethasone 0.3-0.1 % Suspension 2 drops to bilateral ears tid 1 Bottle 0 07/27/2018 Active estradiol 0.01 mg vaginal tablet (8 sources) Estrogen Start: 06-09-2017 YUVAFEM 10 mcg Tab Insert 1 (one) tablet (10 mcg total) into the vagina once a week. 12 tablet 0 06/09/2017 Active estrogens, conjugated (mcfp) 0.625 mg/ml vaginal cream (16 sources) Estrogen [...] 40 mg by mouth daily. 03/26/2018 Discontinued meloxicam 15 mg oral tablet (13 sources) Nonsteroidal Anti-inflammatory Drug Start: 06-13-2023 End: 09-15-2023 take 15 mg by mouth once daily Meloxicam Active 15 MG PO Daily September 15, 2023 1:59pm MULTIPLE VITAMIN PO (16 sources) MULTIPLE VITAMIN PO take by mouth.. 0 Active MULTIPLE VITAMIN PO take by mouth.. Active Multivitamin preparation (20 sources) Start: 06-26-2023 take 1 tablet by mouth once daily Multivitamin Active 1 TAB PO Daily June 26, 2023 1:00am Multivitamin Act esteban simvastatin 20 mg oral tablet (20 sources) HMG-CoA Reductase Inhibitor Start: 06-13-2023 take 20 mg by mouth once daily Simvastatin Active 20 MG PO Daily June 13, 2023 1:00am Start: 09-08-2016 End: 03-30-2018 take 1 tablet [...] Take 1 tablet by mouth daily. Active vortioxetine 20 mg oral tablet (20 [...] Take 2 tablets by mouth daily. Lot [id number], Exp 02/14 28 tablet 0 03/30/2018 05/11/2018 [...] Take 1 tablet by mouth daily. Lot [id number], exp 12/15 14 tablet 03/03/2018 03/26/2018 Discontinued Completed/Discontinued Medications Medication Drug Class(es) Dates Sig (Normalized) Sig (Original) ALPRAZolam 0.25 mg oral tablet (5 sources) Benzodiazepine End: 03-30-2018 ALPRAZolam 0.25 MG Tab tablet Take 0.5 mg by mouth as needed for Sleep. 03/30/2018 Discontinued amoxicillin 875 mg / clavulanate 125 mg oral tablet (4 sources) Penicillin-class Antibacterial Start: 09-26-2023 End: 11-19-2023 take 1 tablet by mouth twice daily at mealtime Amoxicillin-Pot Clavulanate Discontinued 1 TAB PO Twice daily 14 02September 26, 2023 11:15am November 19, 2023 8:37am with food bupivacaine hydrochloride 5 mg/ml injectable solution (2 sources) Amide Local Anesthetic Start: 05-02-2020 End: 05-02-2020 bupivacaine (MARCAINE) 0.5 % injection 1 mL busPIRone hydrochloride 5 mg oral tablet (20 sources) Start: 11-19-2023 take 5 mg by mouth three times daily Buspirone Active 5 MG PO Three times daily November 19, 2023 12:00am Start: 03-30-2018 End: 05-11-2018 take 1 tablet [...] daily. 60 tablet 0 03/03/2018 03/30/2018 Discontinued cephalexin 500 mg oral capsule (5 sources) Cephalosporin Antibacterial Start: 09-15-2023 End: 09-26-2023 take 500 mg by mouth three times daily Cephalexin Discontinued 500 MG PO Three times daily 15 11September 15, 2023 12:00am September 26, 2023 10:48am 24 hr desvenlafaxine succinate 25 mg extended release oral tablet (2 sources) Serotonin and Norepinephrine Reuptake Inhibitor Start: 11-19-2023 take 25 mg by mouth once daily Desvenlafaxine Succinate Active 25 MG PO Daily November 19, 2023 12:00am 1 ml dexamethasone phosphate 4 mg/ml injection (2 sources) Corticosteroid Start: 05-02-2020 End: 05-02-2020 dexAMETHasone (DECADRON) injection 4 mg lamoTRIgine 25 mg oral tablet (20 sources) Mood Stabilizer, Anti-epileptic Agent Start: 06-26-2023 End: 09-15-2023 take 25 mg by mouth once daily at bedtime Lamotrigine Discontinued 25 MG PO Daily at bedtime June 26, 2023 1:00am September 15, 2023 1:58pm Start: 06-13-2023 take 100 mg by mouth once andrey y Lamotrigine Active 100 MG PO Daily June 13, 2023 1:00am Start: 03-29-2020 take 1 tablet by anam th once daily lamoTRIgine 100 MG tablet Take 100 mg by mouth daily. 0 03/29/2020 Active 10 ml lidocaine hydrochloride 10 mg/ml injection (2 sources) Antiarrhythmic, Amide Local Anesthetic Start: 05-02-2020 End: 05-02-2020 lidocaine (XYLOCAINE) 10 mg/mL injection 4 mL ondansetron 4 mg disintegrating oral tablet (13 sources) Serotonin-3 Receptor Antagonist Start: 06-26-2023 End: 06-26-2023 Ondansetron Discontinued MG PO June 26, 2023 1:00am June 26, 2023 10:17am FreeTextSig: dissolve 1 tablet on the tongue Orally q8-12 hours prn; Note: Source Status: Not-Taking\PRN; Refills: 0; Provider: Walker Bowling Start: 09-02-2022 Ondansetron 4 MG dissolve 1 tablet on the tongue Orally q8-12 hours prn August, Not-Taking/PRN penicillin v potassium 250 mg oral tablet (4 sources) End: 05-11-2018 take 1 tablet by mouth four times daily penicillin v potassium 250 MG Tab Take 250 mg by mouth 4 times daily. 05/11/2018 Discontinued sildenafil 100 mg oral tablet (20 sources) Phosphodiesterase 5 Inhibitor Start: 06-26-2023 End: 06-26-2023 take 1 tablet by mouth once daily as needed Sildenafil Discontinued 1 TAB PO Daily June 26, 2023 1:00am June 26, 2023 10:20am FreeTextSi tablet as needed Orally Once a day; Note: Source Status: Taking; Provider: Walker Bowling Start: 03-31-2018 take 1 tablet by anam th once daily as needed sildenafil (VIAGRA) 100 MG tablet Take 1 (one) tablet (100 mg total) by mouth daily as needed . 10 tablet 1 03/31/2018 Active 10 ml sodium chloride 9 mg/ml injection (2 sources) Start: 05-02-2020 End: 05-02-2020 sodium chloride (PF) 0.9 % injection 5 mL triamcinolone acetonide 40 mg/ml injectable suspension (14 sources) Corticosteroid Start: 07-12-2022 Kenalog-40 Apr, 120 mg Start: 05-02-2020 End: 05-02-2020 triamcinolone (KENALOG-40) i njection 2 mL 24 hr venlafaxine 37.5 mg extended release oral capsule (20 sources) Serotonin and Norepinephrine Reuptake Inhibitor Start: 06-13-2023 End: 11-19-2023 take 37.5 mg by mouth once daily Venlafaxine Discontinued 37.5 MG PO Daily June 13, 2023 1:00am November 19, 2023 8:38am Start: 02-01-2020 take 1 capsule by mo uth once daily venlafaxine 37.5 MG Cap SR 24HR capsule XR Take 37.5 mg by mouth daily. 0 02/01/2020 Active Problems Active Problems Problem Classification Problem Date Documented Da te Episodic/Chronic Anxiety disorders (20 sources) Anxiety; Translations: [Anxiety disorder, unspecified] Onset: 03-05-2016 03-05-2016 Chronic Delirium, dementia, and amnestic and other cognitive disorders (14 sources) Postconcussion syndrome; Translations: [Postconcussional syndrome] Chronic Diabetes mellitus without complication (14 sources) Hyperglycemia, unspecified; Translations: [Hyperglycemia] Onset: 12-06-2021 Resolved: 12-06-2021 Episodic Diseases of [...] end of radius] Onset: 10-08-2017 10-09-2017 Episodic Genitourinary symptoms and ill-defined conditions (20 sources) Increased frequency of urination; Translations: [Frequency of micturition] Onset: 09-15-2023 09-15-2023 Episodic Mood disorders (20 sources) Depressive disorder; Translations: [Recurrent major depression in partial remission] Onset: 10-05-2015 Resolved: 12-06-2021 10-05-2015 Chronic Mood disorders (2 sources) Major depressive disorder, single episode, unspecified; Translations: [Major depressive disorder, single episode, unspecified] Onset: 10-05-2015 Osteoarthritis (20 sources) Osteoarthritis of right hip joint; Translations: [Unilateral primary osteoarthritis, right hip] Onset: 11-19-2023 Chronic Osteoarthritis (3 sources) Osteoarthritis of right hip joint; Translations: [Primary osteoarthritis of right hip] Osteoporosis (3 sources) Osteoporosis; Translations: [Age-related osteoporosis without current pathological fracture] Onset: 11-19-2023 11-19-2023 Chronic Other aftercare (9 sources) Other long-term (current) drug therapy; Translations: [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] Onset: 02-07-2022 Episodic Other aftercare (2 sources) Long-term current use of drug therapy; Translations: [Other long-term (current) drug therapy] 11-19-2023 Episodic Other connective tissue disease (7 sources) Presence of unspecified artificial hip joint; Translations: [Status post hip replacement] Onset: 09-25-2016 09-25-2016 Chronic Other connective tissue disease (11 sources) Trochanteric bursitis; Translations: [Trochanteric bursitis, right [...] pain] Other nutritional; endocrine; and metabolic disorders (6 sources) Abnormal weight loss; Translations: [Loss of weight] Onset: 12-06-2021 Resolved: 12-06-2021 Episodic Other nutritional; endocrine; and metabolic disorders (1 source) Abnormal weight gain Episodic Other nutritional; endocrine; and metabolic disorders (6 sources) Weight gain; Translations: [Abnormal weight gain] 06-26-2023 Episodic Other nutritional; endocrine; and metabolic disorders (6 sources) Weight loss; Translations: [Abnormal weight loss] 06-26-2023 Episodic Other skin disorders (1 source) Nonscarring hair loss, unspecified Episodic Residual codes; unclassified (6 sources) Amnesia; Translations: [Other amnesia] Episodic Residual codes; unclassified (1 source) Other amnesia Episodic Residual codes; unclassified (1 source) Decreased libido Episodic Superficial injury; contusion (4 sources) Contusion of right wrist, initial encounter; Translations: [Contusion of scalp, initial encounter] Onset: 09-15-2017 Episodic Unclassified (17 sources) Encounter for screening mammogram for malignant neoplasm of breast; Translations: [Encounter for screening, unspecified] Onset: 11-07-2016 Episodic Unclassified (3 sources) Closed fracture of [...] [Unilateral primary osteoarthritis, right hip] Onset: 06-13-2023 Past or Other Problems Problem Classification Problem Date Documented Da te Episodic/Chronic Abdominal pain (16 sources) Pain in female pelvis; Translations: [Female pelvic pain] Onset: 10-23-2016 10-23-2016 Episodic Medical examination/evaluation (1 source) Laboratory examination, unspecified; Translations: [Laboratory examination, unspecified] Onset: 12-13-2014 Episodic Other ear and sense organ disorders (1 source) Acute otitis externa; Translations: [Acute swimmer's ear of both sides] Episodic Unclassified (1 source) Left wrist pain Unclassified (1 source) Encounter for screening mammogram for malignant neoplasm of breast; Translations: [Encounter for screening mammogram for malignant neoplasm of breast] Onset: 11-07-2016 Unclassified (1 source) Laboratory examination, unspecified; Translations: [Laboratory examination, unspecified] Onset: 12-13-2014 Unclassified (1 source) Patient encounter status Results Test Name Value Interpretation Reference Range Facility A1C with Estimated Average G arashn 11-19-2023 Glucose [Mass/Vol] 123 mg/dL Normal [facility] Comment on above: Result Comment: PERF ORMED BY: [place] [address] PATHOLOGIST FOX RAISER KOMAL COFFMAN M.D. Performed By: #### N ICOTINE #### [facility] , #### HGB, ALB, [id number], A1C WTH eA, CUMRSA #### [facility] [address] [place] [address] HbA1c (Bld) [Mass fraction] 5.9 % High 4.3-5.6 [facility] Comment on above: Result Comment: Incr eased risk for diabetes: 5.7 - 6.4 diabetes: >6.4 glycemic control for adults with diabetes: <7.0 Performed By: #### N ICOTINE #### [facility] , #### HGB, ALB, [id number], A1C WTH eA, CUMRSA #### [facility] [address] [place] [address] Albumin Levelon 11-19-2023 Albumin [Mass/Vol] 4.6 g/dL Normal 3.5-5.7 [facility] Comment on above: Performed By: #### N ICOTINE #### [facility] , #### HGB, ALB, [id number], A1C WTH eA, CUMRSA #### [facility] [address] [place] [address] Albumin [Mass/volume] in Ser um or Plasma by Bromocresol green (BCG) dye binding methoOrdered By: Finn Ortez on 11-19-2023 Albumin BCG dye [Mass/Vol] 4.6 g/dL 3.5-5.7 [facility] Hemoglobin [Mass/volume] in BloodOrdered By: Finn Ortez on 11-19-2023 Hemoglobin (Bld) [Mass/Vol] 13.6 g/dL Normal 11.8-15.4 [facility] Comment on above: Result Comment: PERF ORMED BY: [place] [address] PATHOLOGIST FOX RAISER KOMAL COFFMAN M.D. Performed By: #### N ICOTINE #### [facility] , #### HGB, ALB, [id number], A1C WTH eA, CUMRSA #### [place] [address] [place] MRSA Cultureon 11-19-2023 MRSA Culture MRSA Culture Results No MRSA Isolated 2 Days PERFORMED BY: [place] [address] PATHOLOGIST FOX RAISER KOMAL COFFMAN M.D. Normal [facility] Comment on above: Performed By: #### N ICOTINE #### [facility] , #### HGB, ALB, [id number], A1C WTH eA, CUMRSA #### [place] [address] [place] Nicotine/Cotinine Bloodon Cotinine, Blood <1.0 Normal . [facility] Comment on above: Result Comment: This test was developed and its performance characteristics determined by [facility]. It has not been cleared or approved by the Food and Drug Administration. Cotinine levels greater than 20.0 are consistent with the use of tobacco or tobacco cessation products. Performed at: [facility] [id number] Social Services Technician: Vinh Almeida MD, Phone: [phone] PERFORMED BY: [place] [address] PATHOLOGIST FOX RAISER KOMAL COFFMAN M.D. Performed By: #### N ICOTINE #### [facility] , #### HGB, ALB, [id number], A1C WTH eA, CUMRSA #### [address] Nicotine, Blood <1.0 Normal . [facility] Comment on above: Result Comment: This test was developed and its performance characteristics determined by [facility]. It has not been cleared or approved by the Food and Drug Administration. Nicotine levels greater than 2.0 are consistent with the use of tobacco or tobacco cessation products. Performed By: #### N ICOTINE #### [facility] , #### HGB, ALB, [id number], A1C WTH eA, CUMRSA #### [place] [id number] [facility] Vitamin D 25 Hydroxy Totalon 11-19-2023 Vitamin D 25 Hydroxy Total 51.6 ng/mL Normal 30-100 [facility] Comment on above: Result Comment: EDIE MIN D STATUS 25(OH)VITAMIN D RANGE (ng/mL) Deficient <20 Insufficient 20 to <30 Sufficient 30 to 100 Reference: Radha Vargas, Gisela RAMAN, et al. Evaluation,treatment, and prevention of vitamin D deficiency; an Endocrine Society clinical practice guideline. JCEM. 2010; 96(7):1911-30. PERFORMED BY: [place] [address] PATHOLOGIST FOX RAISER KOMAL COFFMAN M.D. Performed By: #### N ICOTINE #### [facility] , #### HGB, ALB, [id number], A1C WTH eA, CUMRSA #### [place] [id number] [facility] Vitamin D+Metabolites [Mass/ volume] in Serum or PlasmaOrdered By: Finn Ortez on 11-19-2023 Vitamin D+Metabolites [Mass/Vol] 51.6 ng/mL 30-100 [facility] Comment on above: VITAMIN D STATUS 25( OH)VITAMIN D RANGE (ng/mL) Deficient <20 Insufficient 20 to <30Sufficient 30 to 100Reference: Radha Vargas, Gisela RAMAN, et al. Evaluation,treatment, and prevention of vitamin D deficiency; an Endocrine Society clinical practice guideline. JCEM. 2010; 96(7):1911-30. Bilirubin Test strip Ql (U)O rdered By: Karen Cardoso on 09-15-2023 Bilirubin Ql (U) Negative Negative [facility] Color of Urine by AutoOrdere d By: Karen Cardoso on 09-15-2023 Color (U) Yellow Normal Yellow [facility] Comment on above: Order Comment: Name Collection Type:: Collection Method Unknown Performed By: #### U A, CUU #### [address] Ketones Auto test strip (U) [Mass/Vol]Ordered By: Karen Cardoso on 09-15-2023 Ketones (U) [Mass/Vol] Trace High Negative [facility] Nitrite Test strip Ql (U)Ord ered By: Karen Cardoso on 09-15-2023 Nitrite Ql (U) Negative Negative [facility] Protein Auto test strip (U) [Mass/Vol]Ordered By: Karen Cardoso on 09-15-2023 Protein (U) [Mass/Vol] Negative Negative [facility] Specific gravity Auto test s trip (U) [Rel density]Ordered By: Karen Cardoso on 09-15-2023 Specific gravity (U) [Rel density] 1.007 1.001-1.030 [facility] Urinalysison 09-15-2023 Appearance (U) Clear Normal Clear [facility] Comment on above: Order Comment: Name Collection Type:: Collection Method Unknown Performed By: #### U A, CUU #### [address] Bilirubin,Urine Negative Normal Negative [facility] Comment on above: Order Comment: Name Collection Type:: Collection Method Unknown Performed By: #### U A, CUU #### [address] Glucose Ql (U) Normal Normal Normal [facility] Comment on above: Order Comment: Name Collection Type:: Collection Method Unknown Performed By: #### U A, CUU #### [address] Ketones Ql (U) Trace High Negative [facility] Comment on above: Order Comment: Name Collection Type:: Collection Method Unknown Performed By: #### U A, CUU #### [address] Leukocyte esterase Test strip Ql (U) Negative Normal Negative [facility] Comment on above: Order Comment: Name Collection Type:: Collection Method Unknown Performed By: #### U A, CUU #### [place] [address] [place] Nitrite,Urine Negative Normal Negative [facility] Comment on above: Order Comment: Name Collection Type:: Collection Method Unknown Performed By: #### U A, CUU #### [address] Occult Blood,Urine 2+ High Negative [facility] Comment on above: Order Comment: Name Collection Type:: Collection Method Unknown Result Comment: PERF ORMED BY: [place] [address] PATHOLOGIST FOX RAISER KOMAL COFFMAN M.D. Performed By: #### U A, CUU #### [address] Protein,Urine Negative Normal Negative [facility] Comment on above: Order Comment: Name Collection Type:: Collection Method Unknown Performed By: #### U A, CUU #### [address] Specificy [place],Urine 1.007 Normal 1.001-1.030 [facility] Comment on above: Order Comment: Name Collection Type:: Collection Method Unknown Performed By: #### U A, CUU #### [place] [address] [place] Urobilinogen,Urine Normal Normal Normal [facility] Comment on above: Order Comment: Name Collection Type:: Collection Method Unknown Performed By: #### U A, CUU #### [address] Urine Cultureon 09-15-2023 Bacteria identified Cx Nom (U) 50,000 colonies/ml mixed bacterial skin contaminants 2 Days PERFORMED BY: [place] [address] PATHOLOGIST FOX RAISER KOMAL COFFMAN M.D. Normal [facility] Comment on above: Performed By: #### U A, CUU #### [facility] [address] [place], [place] [id number] [facility] Urine clarity by refractomet ry automatedOrdered By: Karen Cardoso on 09-15-2023 Clarity Refractometry automated (U) Clear Clear [facility] Urine culture routineOrdered By: Karen Cardoso on 09-15-2023 Bacteria identified Cx Nom (U) 2 Days [facility] Urine glucose measurement by automated test strip (mass/volume)Ordered By: Karen Cardoso on 09-15-2023 Glucose Auto test strip (U) [Mass/Vol] Normal mg/dL Normal [facility] Urine hemoglobin detection b y automated test stripOrdered By: Karen Cardoso on 09-15-2023 Hemoglobin Auto test strip Ql (U) 2+ High Negative [facility] Urine leukocyte esterase det ection by automated test stripOrdered By: Karen Cardoso on 09-15-2023 Leukocyte esterase Auto test strip Ql (U) Negative Negative [facility] Urine pH measurement by auto mated test stripOrdered By: Karen Cardoso on 09-15-2023 pH (U) 5.5 [pH] Normal 5.0-9.0 [facility] Comment on above: Order Comment: Name Collection Type:: Collection Method Unknown Performed By: #### U A, CUU #### [facility] [address] [place], [place] [id number] [facility] Urobilinogen Auto test strip (U) [Mass/Vol]Ordered By: Karen Cardoso on 09-15-2023 Urobilinogen (U) [Mass/Vol] Normal mg/dL Normal [facility] BI MAMMOGRAM SCREENING TOMOS YNTHESIS BILATERALon 07-24-2023 BI MAMMOGRAM SCREENING TOMOSYNTHESIS BILATERAL This is a summary report. The complete report is available in the patient's medical record. If you cannot access the medical record, please contact the sending organization for a detailed fax or copy. EXAMINATION: BI MAMMOGRAM SCREENING TOMOSYNTHESIS BILATERAL CLINICAL HISTORY:screening COMPARISON: June 07, 2020. RESULT: Digital mammography and 3D tomosynthesis of bilateral breasts was performed. Density: Almost entirely fatty [1] Overall appearance is stable. Typically benign calcifications. There is no suspicious mass, asymmetry, architectural distortion, or calcification IMPRESSION: BIRADS 2 - Benign Follow-up: Routine Screening Mamm Board Certified Radiologists. Accredited by the ACR and FDA. MAMMOGRAPHY IS VERY IMPORTANT TO YOUR HEALTH. THE [place] GUIDELINES RECOMMEND THAT WOMEN 40 YEARS OF AGE AND OLDER SHOULD HAVE A MAMMOGRAM EVERY YEAR. A REMINDER LETTER WILL BE SENT AT THE APPROPRIATE TIME. THIS FACILITY UTILIZES A REMINDER SYSTEM TO ENSURE ALL PATIENTS RECEIVE REMINDER NOTIFICATIONS AT THE APPROPRIATE TIME BASED ON THE RECOMMENDATIONS OF THIS EXAM. THIS INCLUDES REMINDERS FOR ROUTINE SCREENING MAMMOGRAMS, DIAGNOSTIC MAMMOGRAMS IN WHICH THE PATIENT IS ASKED TO RETURN FOR ADDITIONAL VIEWS, OR OTHER BREAST IMAGING INTERVENTIONS WHEN APPROPRIATE. THE PATIENT WILL BE PLACED IN THE APPROPRIATE REMINDER SYSTEM INCLUDING A REMINDER AT THE APPROPRIATE TIME FOR ANY PENDING ADDITIONAL VIEWS. TRANSCRIBED BY: ELECTRONICALLY SIGNED BY: Isidro Rod MD Normal Not Available Comment on above: Order Comment: Us or spot compression prn DEXA BONE DENSITYon 07-24-19 DEXA BONE DENSITY Correlation is made with the previous DEXA examination of June 11, 2021. FINDINGS: Right Hip bone density obtained with a [employer] whole body system: Region BMD Young-Adult Age-Matched Total (g/cm2) (%) T-Score (%) Z-Score Mean 0.758 89 -0.8 115 +0.9 IMPRESSION: Impression: The mean BMD and corresponding T-score indicated above indicate Normal Bone Mass and places the patient at no significant risk for fracture. This information can serve as a baseline with which to compare future studies. Compared to the prior exam, +2.6% change is seen. Comment: The T-score is the primary focus of the interpretation of a patient?s bone mineral density measurement. The T-score is the number of standard deviations an individual is above or below the mean value for a young female having normal bone mass. The WHO defines osteoporosis based on the T-score value? +1.0 to ?0.9: Normal bone mass -1.0 to -2.5: Osteopenia and thus may be at future risk of fracture -2.6 to ?5: Osteoporosis and ?at significantly increased risk of fracture? FINDINGS: Left Forearm bone density obtained with a [employer] whole body system: Region BMD Young-Adult Age-Matched Total (g/cm2) (%) T-Score (%) Z-Score Mean 0.674 97 -0.4 117 +1.6 Impression: The mean BMD and corresponding T-score indicated above indicate Normal Bone Mass and places the patient at no significant risk for fracture. This information can serve as a baseline with which to compare future studies. Compared to the prior exam, +8.4% change is seen. FINDINGS: AP Spine bone density obtained with a [employer] whole body system: Region BMD Young-Adult Age-Matched Total (g/cm2) (%) T-Score (%) Z-Score L1-L4 1.486 142 +4.0 180 +6.0 Impression: The mean BMD and corresponding T-score indicated above may be misleading due to severe arthritic changes of the lumbar spine. Please see BMD from other scan site for a possibly more reliable measurement. Compared to the prior exam, +9.0% change is seen. Comment: The T-score is the primary focus of the interpretation of a patient?s bone mineral density measurement. The T-score is the number of standard deviations an individual is above or below the mean value for a young female having normal bone mass. The WHO defines osteoporosis based on the T-score value? +1.0 to ?0.9: Normal bone mass -1.0 to -2.5: Osteopenia and thus may be at future risk of fracture -2.6 to ?5: Osteoporosis and ?at significantly increased risk of fracture? TRANSCRIBED BY: ELECTRONICALLY SIGNED BY: Isidro Rod MD Normal Not Available Basophils Auto (Bld) [#/Vol] on 06-23-2023 Basophils (Bld) [#/Vol] 0.0 10 3/uL 0.0-0.1 [facility] Basophils/100 WBC Auto (Bld) on 06-23-2023 Basophils/100 WBC (Bld) 0.4 % 0.2-2.0 [facility] Cholesterol in LDL Calc [Mas s/Vol]on 06-23-2023 Cholesterol in LDL [Mass/Vol] 104.0 mg/dL [facility] Comment on above: <100 mg/dl [id number] 0-129 mg/dl NEAR OR ABOVE [id number] mg/dl BORDERLINE [id number] mg/dl HIGH>190 mg/dl VERY HIGH Cholesterol in VLDL Calc [Ma ss/Vol]on 06-23-2023 Cholesterol in VLDL [Mass/Vol] 19.8 mg/dL [facility] Eosinophils/100 WBC Auto (Bl d)on 06-23-2023 Eosinophils/100 WBC (Bld) 1.8 % 0.9-7.0 [facility] Erythrocyte distribution wid th Auto (RBC) [Ratio]on 06-23-2023 Erythrocyte distribution width (RBC) [Ratio] 14.1 % 11.0-15.0 [facility] Estimated glomerular filtrat ion rate (GFR) non- Americanon 06-23-2023 GFR/1.73 sq M.predicted among non-blacks MDRD (S/P/Bld) [Vol rate/Area] mL/min/{1.73_m2} >=60 [facility] Globulin Calc (S) [Mass/Vol] on 06-23-2023 Globulin (S) [Mass/Vol] 3.6 g/dL [facility] Glucose mean value [Mass/vol ume] in Blood Estimated from glycated hemoglobinon 06-23-2023 Average glucose Estimated from glycated hemoglobin (Bld) [Mass/Vol] 114 mg/dL [facility] Hematocrit Auto (Bld) [Volum e fraction]on 06-23-2023 Hematocrit (Bld) [Volume fraction] 44.3 % 36.0-48.0 [facility] Hemoglobin [Mass/volume] in Bloodon 06-23-2023 Hemoglobin (Bld) [Mass/Vol] 14.0 g/dL 12.0-16.0 [facility] Laboratory - Chemistry and C hemistry - challengeon 06-23-2023 Albumin [Mass/Vol] 3.7 g/dL 3.4-5.0 [facility] ALP [Catalytic activity/Vol] 88 U/L 46-116 [facility] ALT [Catalytic activity/Vol] 29 U/L 14-59 [facility] AST [Catalytic activity/Vol] 18 U/L 15-37 [facility] Bilirubin [Mass/Vol] 0.6 mg/dL 0.2-1.0 [facility] Calcium [Mass/Vol] 9.1 mg/dL 8.5-10.1 [facility] Chloride [Moles/Vol] 104 mmol/L 98-107 [facility] Cholesterol [Mass/Vol] 196 mg/dL <=200 [facility] Cholesterol in HDL [Mass/Vol] 73 mg/dL 40-60 [facility] Comment on above: > or =60 mg/dl - LOW CARDIOVASCULAR RISK<40 mg/dl - HIGH CARDIOVASCULAR RISK CO2 [Moles/Vol] 30.4 mmol/L 21.0-32.0 [facility] Creatinine [Mass/Vol] 0.67 mg/dL 0.55-1.02 [facility] GFR/1.73 sq M.predicted MDRD (S/P/Bld) [Vol rate/Area] mL/min/{1.73_m2} >=60 [facility] Glucose [Mass/Vol] 97 mg/dL 74-106 [facility] Potassium [Moles/Vol] 3.8 mmol/L 3.5-5.1 [facility] Protein [Mass/Vol] 7.3 g/dL 6.4-8.2 [facility] Sodium [Moles/Vol] 145 mmol/L 136-145 [facility] Triglyceride [Mass/Vol] 99 mg/dL <=150 [facility] Urea nitrogen [Mass/Vol] 13.0 mg/dL 7.0-18.0 [facility] Urea nitrogen/Creatinin e [Mass ratio] 19.4 mg/mg [facility] Laboratory - Hematology and Cell countson 06-23-2023 HbA1c (Bld) [Mass fraction] 5.6 % 4.5-6.2 [facility] Comment on above: ADA RECOMMENDED LIMI T 4.0 - 6.0ADA THERAPEUTIC TARGET < 7.0ACTION SUGGESTED> 7.0 Immature granulocytes/100 WBC (Bld) 0.8 % 0.0-0.5 [facility] Leukocytes [#/volume] correc main for nucleated erythrocytes in Blood by Automated counon 06-23-2023 WBC corrected for nucl RBC Auto (Bld) [#/Vol] 9.6 10 3/uL 4.0-11.0 [facility] Lymphocytes Auto (Bld) [#/Vo l]on 06-23-2023 Lymphocytes (Bld) [#/Vol] 1.8 10 3/uL 1.2-3.8 [facility] Lymphocytes/100 WBC Auto (Bl d)on 06-23-2023 Lymphocytes/100 WBC (Bld) 18.7 % 20.5-60.0 [facility] MCH Auto (RBC) [Entitic mass ]on 06-23-2023 MCH (RBC) [Entitic mass] 28.4 pg 26.7-34.0 [facility] MCHC Auto (RBC) [Mass/Vol]on 06-23-2023 MCHC (RBC) [Mass/Vol] 31.6 g/dL 29.9-35.2 [facility] MCV Auto (RBC) [Entitic vol] on 06-23-2023 MCV (RBC) [Entitic vol] 89.9 fL 81.0-99.0 [facility] Monocytes Auto (Bld) [#/Vol] on 06-23-2023 Monocytes (Bld) [#/Vol] 0.8 10 3/uL 0.3-0.8 [facility] Monocytes/100 WBC Auto (Bld) on 06-23-2023 Monocytes/100 WBC (Bld) 7.9 % 1.7-12.0 [facility] Neutrophils Auto (Bld) [#/Vo l]on 06-23-2023 Neutrophils (Bld) [#/Vol] 6.8 10 3/uL 1.4-6.5 [facility] Neutrophils/100 WBC Auto (Bl d)on 06-23-2023 Neutrophils/100 WBC (Bld) 70.4 % 43.0-75.0 [facility] No Panel Informationon 06-23 Eosinophils # (Auto) 0.2 10 3/uL 0.0-0.7 [facility] Immature Granulocyte # (Auto) 0.08 10 3/uL 0.00-0.03 [facility] Platelet mean volume Auto (B ld) [Entitic vol]on 06-23-2023 Platelet mean volume (Bld) [Entitic vol] 8.6 fL 9.5-13.5 [facility] Platelets Auto (Bld) [#/Vol] on 06-23-2023 Platelets (Bld) [#/Vol] 362 10 3/uL 150-450 [facility] RBC Auto (Bld) [#/Vol]on RBC (Bld) [#/Vol] 4.93 10 6/uL 4.20-5.40 [facility] Serum or plasma albumin/glob ulin mass ratioon 06-23-2023 Albumin/Globulin [Mass ratio] 1.0 {ratio} [facility] Serum or plasma anion gap de terminationon 06-23-2023 Anion gap [Moles/Vol] 14.4 mmol/L [facility] Serum or plasma total choles terol/high density lipoprotein (HDL) cholesterol mass amador 06-23-2023 Cholesterol.total/ Cholesterol in HDL [Mass ratio] 2.7 {ratio} [facility] Comment on above: 3.3 - 4.4 LOW RISK4. 4 - 7.1 AVERAGE RISK7.1 - 11.0 MODERATE RISK>11.0 HIGH RISK XR hip RT min 2V(w/wo pelvis )*on 06-13-2023 XR hip RT min 2V(w/wo pelvis)* [facility] [place] [address] XRay Report Signed Patient: Antonino Torres MR#: [id number] : 1955 Acct:[id number] Age/Sex: 67 / F ADM Date: 06/13/23 Loc: [facility] Room: Type: [facility] Attending Dr: Finn Ortez II, MD Copies [...] Silvina Rolon M.D.06/13/2023 12:57 PM Dictation Location: [place] [address] Transcribed By: [facility] 06/13/23 1257 Dictated By: Silvina Rolon MD 06/13/23 1255 Signed By: 06/13/23 1257 Normal [facility] CT CSPINE WO CONon 3 CT CSPINE WO CON EXAMINATION: CT CSPI [...] by: DONYA BIGGS Date: 2022-08-27 17:[address] [facility] CT HEAD WO CONon 08-27-2022 CT HEAD [...] ALMA FRIEDMAN Date: 2022-08-27 17:02 Normal [facility] XR HIP LT 2 3V W [...] by: KAREN CANO Date: 2022-08-27 17:40 Normal [facility] XR hip RT min 2V(w/wo pelvis )*on 07-12-2022 XR hip RT min 2V(w/wo pelvis)* [facility] [employer] Other XR hip RT min 2V(w/wo pelvis)* [facility] [employer] Other XR hip RT min 2V(w/wo pelvis)* [address] [place] [address] [employer] Other XR hip RT min 2V(w/wo pelvis)* [place] [address] [employer] Other XR hip RT min 2V(w/wo pelvis)* XRay Report [employer] Other XR hip RT min 2V(w/wo pelvis)* Signed [employer] Other XR hip RT min 2V(w/wo pelvis)* Patient: Antonino Torres MR#: [id number] [employer] Other XR hip RT min 2V(w/wo pelvis)* 0540 [employer] Other XR hip RT min 2V(w/wo pelvis)* : 1955 Acct:[id number] [employer] Other XR hip RT min 2V(w/wo pelvis)* Age/Sex: 66 / F ADM Date: 07/12/22 [employer] Other XR hip RT min 2V(w/wo pelvis)* Loc: [facility] Room: Type: [facility] [employer] Other XR hip RT min 2V(w/wo pelvis)* Attending Dr: Finn Ortez II, MD [employer] Other XR hip RT min 2V(w/wo pelvis)* Copies to: Finn Ortez MD [employer] Other XR hip RT min 2V(w/wo pelvis)* Ordering Provider: Finn Ortez MD [employer] Other XR hip RT min 2V(w/wo pelvis)* Date of Service: 07/12/22 [employer] Other XR hip RT min 2V(w/wo pelvis)* XR/XR hip RT min 2V(w/wo pelvis)*: Right hip pain [employer] Other XR hip RT min 2V(w/wo pelvis)* XR hip RT min 2V(w/wo pelvis)* 07/12/2022 10:08 AM [employer] Other XR hip RT min 2V(w/wo pelvis)* SIGNS AND SYMPTOMS: Right hip pain, right inguinal pain [employer] Other XR hip RT min 2V(w/wo pelvis)* PROTOCOL: Frontal radiograph the pelvis with crosstable lateral view of the right hip [employer] Other XR hip RT min 2V(w/wo pelvis)* COMPARISON: None [employer] Other XR hip RT min 2V(w/wo pelvis)* FINDINGS: [employer] Other XR hip RT min 2V(w/wo pelvis)* 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 There is no hardware complication or malalignment. [employer] Other XR hip RT min 2V(w/wo pelvis)* The bony ring of the pelvis is grossly intact. Degenerative changes are noted in the lumbar spine [employer] Other XR hip RT min 2V(w/wo pelvis)* and sacroiliac joints. There is enthesophyte formation at the greater trochanters and iliac wings. [employer] Other XR hip RT min 2V(w/wo pelvis)* There is mild narrowing of the right hip joint space. [employer] Other XR hip RT min 2V(w/wo pelvis)* XR/XR hip RT min 2V(w/wo pelvis)* [employer] Other XR hip RT min 2V(w/wo pelvis)* IMPRESSION: [employer] Other XR hip RT min 2V(w/wo pelvis)* No fracture or dislocation. [employer] Other XR hip RT min 2V(w/wo pelvis)* Multifocal degenerative change is noted, as above. [employer] Other XR hip RT min 2V(w/wo pelvis)* Impression dictated by: Justen Jenkins M.D.07/12/2022 1:35 PM [employer] Other XR hip RT min 2V(w/wo pelvis)* Dictation Location: [place] [address] [employer] Other XR hip RT min 2V(w/wo pelvis)* Transcribed By: PWS 07/12/22 1335 [employer] Other XR hip RT min 2V(w/wo pelvis)* Dictated By: Justen Jenkins II, MD 07/12/22 1333 [employer] Other XR hip RT min 2V(w/wo pelvis)* Signed By: [employer] Other XR hip RT min 2V(w/wo pelvis)* 07/12/22 1335 [employer] Other CBC AUTO DIFFon 03-12-2022 BASO # 0.1 103/ul Normal 0.0-0.1 [facility] Comment on above: Performed By: #### D ATCBC #### [facility] [address] [place] [address] Dr. David Phillips Basophils/100 WBC (Bld) 1.0 % Normal 0.2-2.0 [facility] Comment on above: Performed By: #### D ATCBC #### [facility] [address] [place] [address] Dr. David Phillips EO # 0.2 103/ul Normal 0.0-0.7 [facility] Comment on above: Performed By: #### D ATCBC #### [facility] [address] [place] [address] Dr. David Phillips Eosinophils/100 WBC (Bld) 3.7 % Normal 0.9-7.0 [facility] Comment on above: Performed By: #### D ATCBC #### [facility] [address] [place] [address] Dr. David Phillips Erythrocyte distribution width (RBC) [Ratio] 13.1 % Normal 11.0-15.0 [facility] Comment on above: Performed By: #### D ATCBC #### [facility] [address] [place] [address] Dr. David Phillips Hematocrit (Bld) [Volume fraction] 41.6 % Normal 36.0-48.0 [facility] Comment on above: Performed By: #### D ATCBC #### [facility] [address] [place] [address] [address] David Phillips Hemoglobin (Bld) [Mass/Vol] 13.6 g/dL Normal 12.0-16.0 [facility] Comment on above: Performed By: #### D ATCBC #### [facility] [address] [place] [address] [address] David Phillips IG # 0.01 10e3/ul Normal 0.00-0.03 [facility] Comment on above: Performed By: #### D ATCBC #### [facility] [address] [place] [address] [address] David Phillips IG % 0.2 % Normal 0.0-0.5 [facility] Comment on above: Performed By: #### D ATCBC #### [facility] [address] [place] [address] Dr. David Phillips LYMPH # 1.7 103/ul Normal 1.2-3.8 [facility] Comment on above: Performed By: #### D ATCBC #### [facility] [address] [place] [address] Dr. David Phillips Lymphocytes/100 WBC (Bld) 29.0 % Normal 20.5-60.0 [facility] Comment on above: Performed By: #### D ATCBC #### [facility] [address] [place] [address] Dr. David Phillips MCH (RBC) [Entitic mass] 28.9 pg Normal 26.7-34.0 [facility] Comment on above: Performed By: #### D ATCBC #### [facility] [address] [place] [address] Dr. David Phillips MCHC (RBC) [Mass/Vol] 32.7 g/dL Normal 29.9-35.2 [facility] Comment on above: Performed By: #### D ATCBC #### [facility] [address] [place] [address] Dr. David Phillips MCV (RBC) [Entitic vol] 88.3 fL Normal 81.0-99.0 [facility] Comment on above: Performed By: #### D ATCBC #### [facility] [address] [place] [address] [address] David Phillips MONO # 0.5 103/ul Normal 0.3-0.8 [facility] Comment on above: Performed By: #### D ATCBC #### [facility] [address] [place] [address] [address] David Phillips Monocytes/100 WBC (Bld) 7.7 % Normal 1.7-12.0 [facility] Comment on above: Performed By: #### D ATCBC #### [facility] [address] [place] [address] Dr. David Phillips NEUT # 3.4 103/ul Normal 1.4-6.5 [facility] Comment on above: Performed By: #### D ATCBC #### [facility] [address] [place] [address] Dr. David Phillips Neutrophils/100 WBC (Bld) 58.4 % Normal 43.0-75.0 [facility] Comment on above: Performed By: #### D ATCBC #### [facility] [address] [place] [address] Dr. David Phillips Platelet mean volume (Bld) [Entitic vol] 9.0 fL Critically low 9.5-13.5 [facility] Comment on above: Performed By: #### D ATCBC #### [facility] [address] [place] [address] Dr. David Phillips PLT 273 103/ul Normal 150-450 [facility] Comment on above: Performed By: #### D ATCBC #### [facility] [address] [place] [address] Dr. David Phillips RBC 4.71 106/ul Normal 4.20-5.40 [facility] Comment on above: Performed By: #### D ATCBC #### [facility] [address] [place] [address] [address] David Phillips WBC 5.9 103/ul Normal 4.0-11.0 [facility] Comment on above: Performed By: #### D ATCBC #### [facility] [address] [place] [address] [address] David Phillips BRIANNA- BMP WITH LIPIDon 2021 Anion gap [Moles/Vol] 6.8 mmol/L Normal [facility] Comment on above: Performed By: #### D ATCBC #### [facility] [address] [place] [address] [address] David Phillips Calcium [Mass/Vol] 8.6 mg/dL Normal 8.5-10.1 [facility] Comment on above: Performed By: #### D ATCBC #### [facility] [address] [place] [address] [address] David Phillips Chloride [Moles/Vol] 105 mmol/L Normal 98-107 [facility] Comment on above: Performed By: #### D ATCBC #### [facility] [address] [place] [address] [address] David Phillips Cholesterol [Mass/Vol] 175 mg/dL Normal <=200 [facility] Comment on above: Performed By: #### D ATCBC #### [facility] [address] [place] [address] [address] David Phillips Cholesterol in HDL [Mass/Vol] 68 mg/dL Critically high 40-60 [facility] Comment on above: Performed By: #### D ATCBC #### [facility] [address] [place] [address] [address] David Phillips Cholesterol in LDL [Mass/Vol] 96.8 mg/dL Normal [facility] Comment on above: Performed By: #### D ATCBC #### [facility] [address] [place] [address] [address] David Phillips CO2 [Moles/Vol] 32.2 mmol/L Critically high 21.0-32.0 [facility] Comment on above: Performed By: #### D ATCBC #### [facility] [address] [place] [address] [address] David Phillips Creatinine [Mass/Vol] 0.63 mg/dL Normal 0.55-1.02 [facility] Comment on above: Performed By: #### D ATCBC #### [facility] [address] [place] [address] [address] David Phillips EGFR-AF SALVADOREAN >60 Normal >=60 [facility] Comment on above: Performed By: #### D ATCBC #### [facility] [address] [place] [address] [address] David Phillips EGFR-NON AF SALVADOREAN >60 Normal >=60 [facility] Comment on above: Performed By: #### D ATCBC #### [facility] [address] [place] [address] [address] David Phillips Glucose [Mass/Vol] 97 mg/dL Normal 74-106 [facility] Comment on above: Performed By: #### D ATCBC #### [facility] [address] [place] [address] [address] David Phillips HDL NORMAL > or = 60 mg/dl - LO W CARDIOVASCULAR RISK <40 mg/dl - HIGH CARDIOVASCULAR RISK Normal [facility] Comment on above: Performed By: #### D ATCBC #### [facility] [address] [place] [address] [address] David Phillips LDL CALC NORMAL SEE BELOW Normal [facility] Comment on above: Result Comment: <100 mg/dl OPTIMAL 100 - 129 mg/dl NEAR OR ABOVE OPTIMAL 130 - 159 mg/dl BORDERLINE HIGH 160 - 189 mg/dl HIGH >190 mg/dl VERY HIGH Performed By: #### D ATCBC #### [facility] [address] [place] [address] [address] David Phillips Potassium [Moles/Vol] 4.0 mmol/L Normal 3.5-5.1 [facility] Comment on above: Performed By: #### D ATCBC #### [facility] [address] [place] [address] [address] David Phillips Sodium [Moles/Vol] 140 mmol/L Normal 136-145 [facility] Comment on above: Performed By: #### D ATCBC #### [facility] [address] [place] [address] [address] David Phillips Triglyceride [Mass/Vol] 51 mg/dL Normal <=150 [facility] Comment on above: Performed By: #### D ATCBC #### [facility] [address] [place] [address] [address] David Phillips Urea nitrogen [Mass/Vol] 17.0 mg/dL Normal 7.0-18.0 [facility] Comment on above: Performed By: #### D ATCBC #### [facility] [address] [place] [address] Dr. David Phillips Urea nitrogen/Creatinin e [Mass ratio] 27.0 mg/mg Normal [facility] Comment on above: Performed By: #### D ATCBC #### [facility] [address] [place] [address] [address] David hPillips VLDL CALC 10.2 mg/dL Normal [facility] Comment on above: Performed By: #### D ATCBC #### [facility] [address] [place] [address] Dr. David Phillips CBC AUTO DIFFon 02-07-2022 BASO # 0.1 103/ul Normal 0.0-0.1 [facility] Comment on above: Performed By: #### D ATCBC #### [facility] [address] [place] [address] Dr. David Phillips Basophils/100 WBC (Bld) 0.5 % Normal 0.2-2.0 [facility] Comment on above: Performed By: #### D ATCBC #### [facility] [address] [place] [address] Dr. David Phillips EO # 0.2 103/ul Normal 0.0-0.7 [facility] Comment on above: Performed By: #### D ATCBC #### [facility] [address] [place] [address] Dr. David Phillips Eosinophils/100 WBC (Bld) 1.4 % Normal 0.9-7.0 [facility] Comment on above: Performed By: #### D ATCBC #### [facility] [address] [place] [address] Dr. David Phillips Erythrocyte distribution width (RBC) [Ratio] 13.2 % Normal 11.0-15.0 [facility] Comment on above: Performed By: #### D ATCBC #### [facility] [address] [place] [address] Dr. David Phillips Hematocrit (Bld) [Volume fraction] 42.7 % Normal 36.0-48.0 [facility] Comment on above: Performed By: #### D ATCBC #### [facility] [address] [place] [address] Dr. David Phillips Hemoglobin (Bld) [Mass/Vol] 13.7 g/dL Normal 12.0-16.0 [facility] Comment on above: Performed By: #### D ATCBC #### [facility] [address] [place] [address] Dr. David Phillips IG # 0.04 10e3/ul Critically high 0.00-0.03 [facility] Comment on above: Performed By: #### D ATCBC #### [facility] [address] [place] [address] Dr. David Phillips IG % 0.4 % Normal 0.0-0.5 [facility] Comment on above: Performed By: #### D ATCBC #### [facility] [address] [place] [address] Dr. David Phillips LYMPH # 1.5 103/ul Normal 1.2-3.8 [facility] Comment on above: Performed By: #### D ATCBC #### [facility] [address] [place] [address] Dr. David Phillips Lymphocytes/100 WBC (Bld) 12.9 % Critically low 20.5-60.0 [facility] Comment on above: Performed By: #### D ATCBC #### [facility] [address] [place] [address] Dr. David Phillips MCH (RBC) [Entitic mass] 29.0 pg Normal 26.7-34.0 [facility] Comment on above: Performed By: #### D ATCBC #### [facility] [address] [place] [address] Dr. David Phillips MCHC (RBC) [Mass/Vol] 32.1 g/dL Normal 29.9-35.2 [facility] Comment on above: Performed By: #### D ATCBC #### [facility] [address] [place] [address] Dr. David Phillips MCV (RBC) [Entitic vol] 90.5 fL Normal 81.0-99.0 [facility] Comment on above: Performed By: #### D ATCBC #### [facility] [address] [place] [address] Dr. David Phillips MONO # 0.9 103/ul Critically high 0.3-0.8 [facility] Comment on above: Performed By: #### D ATCBC #### [facility] [address] [place] [address] Dr. David Phillips Monocytes/100 WBC (Bld) 7.5 % Normal 1.7-12.0 [facility] Comment on above: Performed By: #### D ATCBC #### [facility] [address] [place] [address] Dr. David Phillips NEUT # 8.8 103/ul Critically high 1.4-6.5 [facility] Comment on above: Performed By: #### D ATCBC #### [facility] [address] [place] [address] Dr. David Phillips Neutrophils/100 WBC (Bld) 77.3 % Critically high 43.0-75.0 [facility] Comment on above: Performed By: #### D ATCBC #### [facility] [address] [place] [address] Dr. David Phillips Platelet mean volume (Bld) [Entitic vol] 8.9 fL Critically low 9.5-13.5 [facility] Comment on above: Performed By: #### D ATCBC #### [facility] [address] [place] [address] Dr. David Phillips PLT 283 103/ul Normal 150-450 [facility] Comment on above: Performed By: #### D ATCBC #### [facility] [address] [place] [address] Dr. David Phillips RBC 4.72 106/ul Normal 4.20-5.40 [facility] Comment on above: Performed By: #### D ATCBC #### [facility] [address] [place] [address] Dr. David Phillips WBC 11.4 103/ul Critically high 4.0-11.0 [facility] Comment on above: Performed By: #### D ATCBC #### [facility] [address] [place] [address] Dr. David Phillips BRIANNA- BMP WITH LIPIDon 2021 Anion gap [Moles/Vol] 9.1 mmol/L Normal [facility] Comment on above: Performed By: #### D ATBMP #### [facility] [address] [place] [address] Dr. David Phillips Calcium [Mass/Vol] 9.0 mg/dL Normal 8.5-10.1 [facility] Comment on above: Performed By: #### D ATBMP #### [facility] [address] [place] [address] Dr. David Phillips Chloride [Moles/Vol] 103 mmol/L Normal 98-107 [facility] Comment on above: Performed By: #### D ATBMP #### [facility] [address] [place] [address] Dr. David Phillips Cholesterol [Mass/Vol] 183 mg/dL Normal <=200 [facility] Comment on above: Performed By: #### D ATBMP #### [facility] [address] [place] [address] Dr. David Phillips Cholesterol in HDL [Mass/Vol] 75 mg/dL Critically high 40-60 [facility] Comment on above: Performed By: #### D ATBMP #### [facility] [address] [place] [address] Dr. David Phillips Cholesterol in LDL [Mass/Vol] 95.2 mg/dL Normal [facility] Comment on above: Performed By: #### D ATBMP #### [facility] [address] [place] [address] Dr. David Phillips CO2 [Moles/Vol] 31.1 mmol/L Normal 21.0-32.0 [facility] Comment on above: Performed By: #### D ATBMP #### [facility] [address] [address] [address] David Phillips Creatinine [Mass/Vol] 0.71 mg/dL Normal 0.55-1.02 [facility] Comment on above: Performed By: #### D ATBMP #### [facility] [address] [address] [address] David Phillips EGFR-AF SALVADOREAN >60 Normal >=60 [facility] Comment on above: Performed By: #### D ATBMP #### [facility] [address] [place] [address] Dr. David Phillips EGFR-NON AF [place]OREAN >60 Normal >=60 [facility] Comment on above: Performed By: #### D ATBMP #### [facility] [address] [address] [address] David Phillips Glucose [Mass/Vol] 108 mg/dL Critically high 74-106 [facility] Comment on above: Performed By: #### D ATBMP #### [facility] [address] [place] [address] Dr. David Phillips HDL NORMAL > or = 60 mg/dl - LO W CARDIOVASCULAR RISK <40 mg/dl - HIGH CARDIOVASCULAR RISK Normal [facility] Comment on above: Performed By: #### D ATBMP #### [facility] [address] [place] [address] Dr. David Phillips LDL CALC NORMAL SEE BELOW Normal [facility] Comment on above: Result Comment: <100 mg/dl OPTIMAL 100 - 129 mg/dl NEAR OR ABOVE OPTIMAL 130 - 159 mg/dl BORDERLINE HIGH 160 - 189 mg/dl HIGH >190 mg/dl VERY HIGH Performed By: #### D ATBMP #### [facility] [address] [place] [address] Dr. David Phillips Potassium [Moles/Vol] 4.2 mmol/L Normal 3.5-5.1 [facility] Comment on above: Performed By: #### D ATBMP #### [facility] [address] [address] [address] David Phillips Sodium [Moles/Vol] 139 mmol/L Normal 136-145 [facility] Comment on above: Performed By: #### D ATBMP #### [facility] [address] [address] [address] David Phillips Triglyceride [Mass/Vol] 64 mg/dL Normal <=150 [facility] Comment on above: Performed By: #### D ATBMP #### [facility] [address] [address] [address] David Phillips Urea nitrogen [Mass/Vol] 15.0 mg/dL Normal 7.0-18.0 [facility] Comment on above: Performed By: #### D ATBMP #### [facility] [address] [address] [address] David Phillips Urea nitrogen/Creatinin e [Mass ratio] 21.1 mg/mg Normal [facility] Comment on above: Performed By: #### D ATBMP #### [facility] [address] [address] [address] David Phillips VLDL CALC 12.8 mg/dL Normal [facility] Comment on above: Performed By: #### D ATBMP #### [facility] [address] [address] [address] David Phillips GLYCOHEMOGLOBIN A1Con 2021 ADA RECOMMENDATION SEE BELOW Normal [facility] Comment on above: Result Comment: ADA RECOMMENDED LIMIT 4.0 - 6.0 ADA THERAPEUTIC TARGET < 7.0 ACTION SUGGESTED > 7.0 Performed By: #### D ATA1C #### [facility] [address] [address] [address] David Phillips Glucose [Mass/Vol] 111 mg/dL Normal [facility] Comment on above: Performed By: #### D ATA1C #### [facility] [address] [address] [address] David Phillips HbA1c (Bld) [Mass fraction] 5.5 % Normal 4.5-6.2 [facility] Comment on above: Performed By: #### D ATA1C #### [facility] [address] [place] [address] Dr. David BARRONOTon 02-07-2022 AST [Catalytic activity/Vol] 19 U/L Normal 15-37 [facility] Comment on above: Performed By: #### A LT, AST #### [facility] [address] [place] [address] Dr. David Phillips SGPTon 02-07-2022 ALT [Catalytic activity/Vol] 27 U/L Normal 14-59 [facility] Comment on above: Performed By: #### A LT, AST #### [facility] [address] [place] [address] Dr. David Phillips CBC AUTO DIFFon 11-28-2021 BASO # 0.0 103/ul Normal 0.0-0.1 [facility] Comment on above: Performed By: #### D ATCBC #### [facility] [address] [place] [address] Dr. David Phillips Basophils/100 WBC (Bld) 0.1 % Critically low 0.2-2.0 [facility] Comment on above: Performed By: #### D ATCBC #### [facility] [address] [place] [address] Dr. David Phillips EO # 0.0 103/ul Normal 0.0-0.7 [facility] Comment on above: Performed By: #### D ATCBC #### [facility] [address] [place] [address] Dr. David Phillips Eosinophils/100 WBC (Bld) 0.0 % Critically low 0.9-7.0 [facility] Comment on above: Performed By: #### D ATCBC #### [facility] [address] [place] [address] Dr. David Phillips Erythrocyte distribution width (RBC) [Ratio] 13.5 % Normal 11.0-15.0 [facility] Comment on above: Performed By: #### D ATCBC #### [facility] [address] [place] [address] Dr. David Phillips Hematocrit (Bld) [Volume fraction] 41.4 % Normal 36.0-48.0 [facility] Comment on above: Performed By: #### D ATCBC #### [facility] [address] [address] [address] David Pihllips Hemoglobin (Bld) [Mass/Vol] 13.4 g/dL Normal 12.0-16.0 [facility] Comment on above: Performed By: #### D ATCBC #### [facility] [address] [address] [address] David Phillips IG # 0.07 10e3/ul Critically high 0.00-0.03 [facility] Comment on above: Performed By: #### D ATCBC #### [facility] [address] [place] [address] Dr. David Phillips IG % 0.5 % Normal 0.0-0.5 [facility] Comment on above: Performed By: #### D ATCBC #### [facility] [address] [address] [address] David Phillips LYMPH # 1.0 103/ul Critically low 1.2-3.8 [facility] Comment on above: Performed By: #### D ATCBC #### [facility] [address] [place] [address] Dr. David Phillips Lymphocytes/100 WBC (Bld) 7.1 % Critically low 20.5-60.0 [facility] Comment on above: Performed By: #### D ATCBC #### [facility] [address] [address] [address] David Phillips MCH (RBC) [Entitic mass] 28.8 pg Normal 26.7-34.0 [facility] Comment on above: Performed By: #### D ATCBC #### [facility] [address] [place] [address] Dr. David Phillips MCHC (RBC) [Mass/Vol] 32.4 g/dL Normal 29.9-35.2 [facility] Comment on above: Performed By: #### D ATCBC #### [facility] [address] [address] [address] David Phillips MCV (RBC) [Entitic vol] 88.8 fL Normal 81.0-99.0 [facility] Comment on above: Performed By: #### D ATCBC #### [facility] [address] [place] [address] Dr. David Phillips MONO # 0.3 103/ul Normal 0.3-0.8 [facility] Comment on above: Performed By: #### D ATCBC #### [facility] [address] [place] [address] Dr. David Phillips Monocytes/100 WBC (Bld) 1.9 % Normal 1.7-12.0 [facility] Comment on above: Performed By: #### D ATCBC #### [facility] [address] [place] [address] Dr. David Phillips NEUT # 12.9 103/ul Critically high 1.4-6.5 [facility] Comment on above: Performed By: #### D ATCBC #### [facility] [address] [place] [address] Dr. David Phillips Neutrophils/100 WBC (Bld) 90.4 % Critically high 43.0-75.0 [facility] Comment on above: Performed By: #### D ATCBC #### [facility] [address] [place] [address] Dr. David Phillips Platelet mean volume (Bld) [Entitic vol] 9.1 fL Critically low 9.5-13.5 [facility] Comment on above: Performed By: #### D ATCBC #### [facility] [address] [place] [address] Dr. David Phillips PLT 296 103/ul Normal 150-450 [facility] Comment on above: Performed By: #### D ATCBC #### [facility] [address] [place] [address] Dr. David Phillips RBC 4.66 106/ul Normal 4.20-5.40 [facility] Comment on above: Performed By: #### D ATCBC #### [facility] [address] [place] [address] Dr. David Phillips WBC 14.3 103/ul Critically high 4.0-11.0 [facility] Comment on above: Performed By: #### D ATCBC #### [facility] [address] [address] [address] David Phillips BRIANNA- BMP WITH LIPIDon 2021 Anion gap [Moles/Vol] 13.2 mmol/L Normal [facility] Comment on above: Performed By: #### D ATBMP #### [facility] [address] [address] [address] David Phillips Calcium [Mass/Vol] 9.0 mg/dL Normal 8.5-10.1 [facility] Comment on above: Performed By: #### D ATBMP #### [facility] [address] [place] [address] Dr. David Phillips Chloride [Moles/Vol] 105 mmol/L Normal 98-107 [facility] Comment on above: Performed By: #### D ATBMP #### [facility] [address] [address] [address] David Phillips Cholesterol [Mass/Vol] 191 mg/dL Normal <=200 [facility] Comment on above: Performed By: #### D ATBMP #### [facility] [address] [address] [address] David Phillips Cholesterol in HDL [Mass/Vol] 71 mg/dL Critically high 40-60 [facility] Comment on above: Performed By: #### D ATBMP #### [facility] [address] [address] [address] David Phillips Cholesterol in LDL [Mass/Vol] 107.4 mg/dL Normal [facility] Comment on above: Performed By: #### D ATBMP #### [facility] [address] [address] [address] David Phillips CO2 [Moles/Vol] 28.7 mmol/L Normal 21.0-32.0 [facility] Comment on above: Performed By: #### D ATBMP #### [facility] [address] [address] [address] David Phillips Creatinine [Mass/Vol] 0.62 mg/dL Normal 0.55-1.02 [facility] Comment on above: Performed By: #### D ATBMP #### [facility] [address] [address] [address] David Phillips EGFR-AF SALVADOREAN >60 Normal >=60 [facility] Comment on above: Performed By: #### D ATBMP #### [facility] [address] [address] [address] David Phillips EGFR-NON AF [place]VADOREAN >60 Normal >=60 [facility] Comment on above: Performed By: #### D ATBMP #### [facility] [address] [address] [address] David Phillips Glucose [Mass/Vol] 128 mg/dL Critically high 74-106 [facility] Comment on above: Performed By: #### D ATBMP #### [facility] [address] [address] [address] David Phillips HDL NORMAL > or = 60 mg/dl - LO W CARDIOVASCULAR RISK <40 mg/dl - HIGH CARDIOVASCULAR RISK Normal [facility] Comment on above: Performed By: #### D ATBMP #### [facility] [address] [address] [address] David Phillips LDL CALC NORMAL SEE BELOW Normal [facility] Comment on above: Result Comment: <100 mg/dl OPTIMAL 100 - 129 mg/dl NEAR OR ABOVE OPTIMAL 130 - 159 mg/dl BORDERLINE HIGH 160 - 189 mg/dl HIGH >190 mg/dl VERY HIGH Performed By: #### D ATBMP #### [facility] [address] [address] [address] David Phillips Potassium [Moles/Vol] 3.9 mmol/L Normal 3.5-5.1 [facility] Comment on above: Performed By: #### D ATBMP #### [facility] [address] [address] [address] David Phillips Sodium [Moles/Vol] 143 mmol/L Normal 136-145 [facility] Comment on above: Performed By: #### D ATBMP #### [facility] [address] [address] [address] David Phillips Triglyceride [Mass/Vol] 63 mg/dL Normal <=150 [facility] Comment on above: Performed By: #### D ATBMP #### [facility] [address] [address] [address] David Phillips Urea nitrogen [Mass/Vol] 15.0 mg/dL Normal 7.0-18.0 [facility] Comment on above: Performed By: #### D ATBMP #### [facility] [address] [address] [address] David Phillips Urea nitrogen/Creatinin e [Mass ratio] 24.2 mg/mg Normal [facility] Comment on above: Performed By: #### D ATBMP #### [facility] [address] [address] [address] David Phillips VLDL CALC 12.6 mg/dL Normal [facility] Comment on above: Performed By: #### D ATBMP #### [facility] [address] [address] [address] David Phillips GLYCOHEMOGLOBIN A1Con 2021 ADA RECOMMENDATION SEE BELOW Normal [facility] Comment on above: Result Comment: ADA RECOMMENDED LIMIT 4.0 - 6.0 ADA THERAPEUTIC TARGET < 7.0 ACTION SUGGESTED > 7.0 Performed By: #### D ATCBC #### [facility] [address] [address] [address] David Phillips Glucose [Mass/Vol] 105 mg/dL Normal [facility] Comment on above: Performed By: #### D ATCBC #### [facility] [address] [address] [address] David Phillips HbA1c (Bld) [Mass fraction] 5.3 % Normal 4.5-6.2 [facility] Comment on above: Performed By: #### D ATCBC #### [facility] [address] [address] [address] David Phillips SCREENING MAMMOGRAM W/GAIL, BILATERAL*on [...] VERY IMPORTANT TO YOUR HEALTH. THE CURRENT [place] [employer] GUIDELINES RECOMMENDS ANNUAL MAMMOGRAPHY BEGINNING AT AGE 40 THIS FACILITY USES A REMINDER SYSTEM TO ENSURE ALL PATIENTS RECEIVE REMINDER NOTIFICATIONS AT THE APPROPRIATE TIME BASED ON THE RECOMMENDATIONS OF THIS EXAM. Board Certified Radiologist. Accredited by the ACR and FDA. Report reported and signed by Trell Martin on 06/11/2021 1236 Normal [facility] Director Of Quantitative Research LARGE JOINT/BURSA INJECTION AND/OR ASPIRATION: R hip jointon 05-02-2020 Rachna Hunter 05/03/2020 6:01 PM LARGE JOINT/BURSA INJECTION [...] fashion. The patient was prepped with Chloraprep. 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 [facility] X-rays, weightbearin g AP pelvis and 2 [...] sacroiliac joints demonstrate moderate evidence of osteoarthrosis. [facility] CBCon 02-25-2018 ABSOLUTE BAS 0.0 X10 Normal [facility] ABSOLUTE EOS 0.10 X10 Normal [facility] ABSOLUTE NEUTROPHIL COUNT 4.5 x10 Normal 1.0-7.0 [facility] Basophils/100 WBC Auto (Bld) 0.7 % Normal 0.0-2.0 [facility] DTYPE AUTO DIFF Normal [facility] Eosinophils/100 WBC Auto (Bld) 1.9 % Normal 0.0-11.0 [facility] Lymphocytes Auto #/vol (Bld) 1.80 X10 Normal [facility] Lymphocytes/100 WBC Auto (Bld) 25.1 % Normal 20.0-55.0 [facility] Monocytes Auto #/vol (Bld) 0.6 X10 Normal [facility] Monocytes/100 WBC Auto (Bld) 8.3 % Normal 0.0-10.0 [facility] Neutrophils/100 WBC Auto (Bld) 64.0 % Normal 37.0-75.0 [facility] Erythrocyte distribution width Auto Ratio (RBC) 13.4 % Normal 11.5-14.5 [facility] Hematocrit Auto Volume Fraction (Bld) 39.9 % Normal 36.0-48.0 [facility] Hemoglobin mass conc (Bld) 13.4 g/dL Normal 12.0-16.0 [facility] MCH Auto Entitic mass (RBC) 28.7 pg Normal 26.0-35.0 [facility] MCHC Auto mass conc (RBC) 33.5 g/dL Normal 27.0-37.0 [facility] MCV Auto Entitic volume (RBC) 85.7 fL Normal 80.0-100.0 [facility] Platelet mean volume Auto Entitic volume (Bld) 7.3 fL Low 7.4-11.0 [facility] Platelets Auto #/vol (Bld) 329 /cmm Normal 130.0-400.0 [facility] RBC Auto #/vol (Bld) 4.66 /cmm Normal 4.0-5.4 [facility] WBC Auto #/vol (Bld) 7.0 /cmm Normal 3.6-11.0 [facility] CHEMISTRY, [facility] ALT enzyme act/vol 30 U/L Normal 9-52 [facility] Calcium mass conc 9.3 mg/dL Normal 8.4-10.2 [facility] Cholesterol in HDL mass conc 49 mg/dL Normal 33-75 [facility] Cholesterol in LDL mass conc 91 MG/DL Normal [facility] Cholesterol in VLDL mass conc 22 mg/dL Normal 5.0-25 [facility] Cholesterol mass conc 162 mg/dL Normal 107-217 [facility] Cholesterol.total/ Cholesterol in HDL mass ratio 3.31 {ratio} Normal [facility] Comment on above: Result Comment: RISK TOTAL/HDL RATIO MEN WOMEN1/2 AVERAGE 3.43 3.27AVERAGE 4.97 4.442X AVERAGE 9.55 7.053X AVERAGE 23.99 11.04 Creatinine mass conc 0.6 mg/dL Low 0.7-1.2 [facility] EST. GFR, >60 Normal [facility] EST. GFR,Non >60 Normal [facility] Gamma glutamyl transferase [Enzymatic activity/volume] in Serum or Plasma 18 IU/L Normal 12-43 [facility] GFR/1.73 sq M predicted among non-blacks MDRD vol rate/area (S/P/Bld) Average GFR for 60-69 years old = 85. Normal [facility] Comment on above: Result Comment: Box Order Person karime Kidney disease, GFR = <60.Kidney failure, GFR = <15.The GFR estimate is not adjusted for extreme body surface area or acute process, nor has it been validated for women or ethnic groups other than and . Glucose mass conc 92 mg/dL Normal 70-100 [facility] Comment on above: Result Comment: NORM AL <100 mg/dLPREDIABETES 101-126 mg/dLDIABETES 126 mg/dL or higher Potassium molar conc 4.3 mmol/L Normal 3.5-5.1 [facility] Sodium molar conc 142 mmol/L Normal 137-145 [facility] Triglyceride mass conc 111 mg/dL Normal 0-150 [facility] Urea nitrogen mass conc (Bld) 17 mg/dL Normal 7-20 [facility] HEMOGLOBIN A1Con 02-25-2018 Glucose mass conc 105 mg/dL Normal [facility] Hemoglobin A1c/Hemoglobin.tot al mass fraction (Bld) 5.3 % Normal 0-6 [facility] Comment on above: Result Comment: NORM AL <5.7%PREDIABETES 5.7-6.4%DIABETES 6.5% OR HIGHER WRISTon 12-05-2017 WRIST Final ReportAccession No: [id number] Performed: Dec 05 2017 11:45AMExamination: RIGHT [...] BK BLANCO D.O.Trans: abond : cc: Normal [facility] WRISTon 11-07-2017 WRIST Final ReportAccession No: [id number] Performed: Nov 07 2017 9:58AMExamination: RIGHT [...] MADIE LORENZO M.D.Trans: lcoope : cc: Normal [facility] XR WRIST RIGHT 3+ VIEWS (STA [...] angulation.Distal ulna intact.Carpal bones appear well positioned. Nrun-bk-jygjvvpf arthritic changes seen of proximal carpal row, greatest laterally.IMPRESSION:1. Healing distal radial nondisplaced nonarticular transverse fracture now seen.2. Chronic ynhb-kz-rwfvxuiz arthritic changes, greatest involving lateral carpal joints.ARR/trnWorkstation ID: [id number] by: ANDREZ ECHAVARRIA on FriOct 09, 2017 7:30:06 AM EDTTranscribed by: LANI EDWARDS on FriOct 09, 2017 9:26:53 AM EDTFinalized by: ANDREZ ECHAVARRIA on FriOct 09, 2017 4:08:57 PM EDT [facility] Comment on above: Order Comment: Reaso n for exam?:rt wrist painInjury/Trauma or Illness?:Injury/TraumaHow long have you had these symptoms (acute/chronic)?:AcuteHistory of cancer?:unkSurgeries, chemotherapy, or radiation?:carpal tunnelType of Exam?:Subsequent/Follow-upMechanism of injury?:fall XR WRIST RIGHT 3 VIEWSon XR WRIST RIGHT 3 VIEWS EXAMINATION: XR WRIST RIGHT 3 VIEWS [id number] CLINICAL HISTORY: 61-year-old female with history of fall swelling right posterior wristFINDINGS/IMPRESSION: Comparison: Compared to none available.No definite acute fracture or malalignment of the right wrist.Focal soft tissue swelling dorsally is seen at the level of the carpal metacarpal articulation. No pathologic calcifications. Blunted appearance of the ulnar styloid could relate to remote trauma. [facility] Mammogramon 11-07-2016 Mammogram Patient Name: Fe YIN : [id number]: [id number] Date: [id number] #: [id number] Class: OPhysician: Conchis COUCH Physician: , Study [...] results.The National Comprehensive Cancer Network and the [employer] recommend annual screening mammograms for women age 40 and older.Dictated: Isidro Morrison 11/07/2016 15:09Transcribed: Isidro Morrison 11/07/2016 15:11Electronically Signed: Isidro Morrison 11/07/2016 15:11[facility] [email or web address], [place] [address] [email or web address] Vital Signs Date Time Vital Sign Value Performing Clinician Facility 09-15-2023 13:54-0400 Body height 165.1 cm DO Karen Cardoso Work Phone: [facility] 09-15-2023 13:54-0400 Body mass index (BMI) [Ratio] 26.1 kg/m2 DO Karen Cardoso Work Phone: [facility] 09-15-2023 13:54-0400 Body temperature 97.3 [degF] DO Karen Cardoso Work Phone: [facility] 09-15-2023 13:54-0400 Body weight 71.21 kg DO Karen Cardoso Work Phone: [facility] 09-15-2023 13:54-0400 Diastolic blood pressure 78 mm[Hg] DO Karen Cardoso Work Phone: [facility] 09-15-2023 13:54-0400 Heart rate 81 /min DO Karen Cardoso Work Phone: [facility] 09-15-2023 13:54-0400 SaO2% (BldA) [Mass fraction] 97 % DO Karen Cardoso Work Phone: [facility] 09-15-2023 13:54-0400 Systolic blood pressure 118 mm[Hg] DO Karen Cardoso Work Phone: [facility] 06-26-2023 09:10-0500 Body height 165.1 cm DO Karen Cardoso Work Phone: [facility] 06-26-2023 09:10-0500 Body mass index (BMI) [Ratio] 26.6 kg/m2 DO Karen Girvin Work Phone: [facility] 06-26-2023 09:10-0500 Body temperature 97.9 [degF] DO Karen Cardoso Work Phone: [facility] 06-26-2023 09:10-0500 Body weight 72.8 kg DO Karen Girsrinivas Work Phone: [facility] 06-26-2023 09:10-0500 Diastolic blood pressure 78 mm[Hg] DO Karen Cardoso Work Phone: [facility] 06-26-2023 09:10-0500 Heart rate 91 /min DO Karen Cardoso Work Phone: [facility] 06-26-2023 09:10-0500 Respiratory rate 18 /min DO Karen Cardoso Work Phone: [facility] 06-26-2023 09:10-0500 SaO2% (BldA) [Mass fraction] 98 % DO Karen Cardoso Work Phone: [facility] 06-26-2023 09:10-0500 Systolic blood pressure 128 mm[Hg] DO Karen Cardoso Work Phone: [facility] 06-13-2023 09:14-0500 Body height 165.1 cm DO Karen Cardoso Work Phone: [facility] 06-13-2023 09:14-0500 Body mass index (BMI) [Ratio] 26.1 kg/m2 DO Karen Girsrinivas Work Phone: [facility] 06-13-2023 09:14-0500 Body weight 71.21 kg DO Karen Cardoso Work Phone: [facility] 05-14-2023 08:15-0500 Body height 165.1 cm Finn Ortez II Other [facility] 12-12-2022 09:10-0400 Body height 165.1 cm Karen Cardoso Other [employer] Other 12-12-2022 09:10-0400 Body mass index (BMI) [Ratio] 27.12 kg/m2 Karen Walker Other [employer] Other 12-12-2022 09:10-0400 Body temperature 98.6 [degF] Karen Cardoso Other [facility] Other 12-12-2022 09:10-0400 Body weight 73.94 kg Karen Walker Other [facility] Other 12-12-2022 09:10-0400 Diastolic blood pressure 78 mm[Hg] Karen Cardoso Other [employer] Other 12-12-2022 09:10-0400 Respiratory rate 18 /min Karen Walker Other [employer] Other 12-12-2022 09:10-0400 SaO2% (BldA) [Mass fraction] 96 % Karen Cardoso Other [facility] Other 12-12-2022 09:10-0400 Systolic blood pressure 124 mm[Hg] Karen Maggiesrinivas Other [employer] Other 07-12-2022 11:00-0400 Body height 165.1 cm Finn Ortez II Other [employer] Other 07-12-2022 11:00-0400 Body mass index (BMI) [Ratio] 26.62 kg/m2 Finn Ortez II Other [facility] Other 07-12-2022 11:00-0400 Body weight 72.58 kg Finn Ortez II Other [employer] Other 06-13-2022 09:10-0500 Body height 165.1 cm Karen Cardoso Other [employer] Other 06-13-2022 09:10-0500 Body mass index (BMI) [Ratio] 27.29 kg/m2 Karen Cardoso Other [employer] Other 06-13-2022 09:10-0500 Body weight 74.39 kg Karen Cardoso Other [employer] Other 06-13-2022 09:10-0500 Diastolic blood pressure 80 mm[Hg] Karen Cardoso Other [employer] Other 06-13-2022 09:10-0500 Respiratory rate 18 /min Karen Cardoso Other [employer] Other 06-13-2022 09:10-0500 SaO2% (BldA) [Mass fraction] 98 % Karen Cardoso Other [employer] Other 06-13-2022 09:10-0500 Systolic blood pressure 132 mm[Hg] Karen Cardoso Other [employer] Other 02-12-2022 10:50-0400 Body height 165.1 cm Karen Cardoso Other [facility] Other 12-06-2021 11:30-0400 Body height 165.1 cm Karen Cardoso Other [employer] Other 12-06-2021 11:30-0400 Body mass index (BMI) [Ratio] 25.62 kg/m2 Karen Serranosrinivas Other [facility] Other 12-06-2021 11:30-0400 Body temperature 97.6 [degF] Karen Cardoso Other [employer] Other 12-06-2021 11:30-0400 Body weight 69.85 kg Karen Cardoso Other [facility] Other 12-06-2021 11:30-0400 Diastolic blood pressure 82 mm[Hg] Karen Maggiesrinivas Other [employer] Other 12-06-2021 11:30-0400 Respiratory rate 16 /min Karen Maggiesrinivas Other [employer] Other 12-06-2021 11:30-0400 SaO2% (BldA) [Mass fraction] 96 % Karen Maggiesrinivas Other [employer] Other 12-06-2021 11:30-0400 Systolic blood pressure 122 mm[Hg] Karen Maggiesrinivas Other [employer] Other 05-23-2020 09:12-0500 BMI (Body Mass Index) 28.06 kg/m2 [facility] 05-23-2020 09:12-0500 Body weight 76.48 kg [facility] 05-23-2020 09:12-0500 Height 165.1 cm [facility] 05-02-2020 12:42-0500 BMI (Body Mass Index) 28.36 kg/m2 [facility] 05-02-2020 12:42-0500 Body weight 77.29 kg [facility] 05-02-2020 12:42-0500 Height 165.1 cm [facility] 04-29-2020 14:49-0500 Body surface area Derived from formula 1.8 m2 [facility] 04-27-2020 08:58-0500 BMI (Body Mass Index) 26.63 kg/m2 [facility] 04-27-2020 08:58-0500 Body weight 72.58 kg [facility] 04-27-2020 08:58-0500 Height 165.1 cm [facility] 07-27-2018 08:54-0400 BMI (Body Mass Index) 26.48 kg/m2 [facility] 07-27-2018 08:54-0400 Body Temperature 98.49 [degF] [facility] 07-27-2018 08:54-0400 Body weight 73.85 kg [facility] 07-27-2018 08:54-0400 BP Diastolic 60 mm[Hg] [facility] 07-27-2018 08:54-0400 BP Systolic 110 mm[Hg] [facility] 07-27-2018 08:54-0400 Height 167 cm [facility] 07-27-2018 08:54-0400 Pulse (Heart Rate) 65 /min [facility] 07-27-2018 08:54-0400 Pulse Oximetry 96 % [facility] 07-27-2018 08:54-0400 Respiratory Rate 16 /min [facility] 05-11-2018 15:19-0500 BMI (Body Mass Index) 26.57 kg/m2 [facility] Work Phone: 05-11-2018 15:19-0500 Body Temperature 97.3 [degF] [facility] Work Phone: 05-11-2018 15:19-0500 BP Diastolic 68 mm[Hg] [facility] Work Phone: 05-11-2018 15:19-0500 BP Systolic 118 mm[Hg] [facility] Work Phone: 05-11-2018 15:19-0500 Height 167 cm [facility] Work Phone: 05-11-2018 15:19-0500 Pulse (Heart Rate) 73 /min [facility] Work Phone: 05-11-2018 15:19-0500 Pulse Oximetry 97 % [facility] Work Phone: 05-11-2018 15:19-0500 Respiratory Rate 16 /min [facility] Work Phone: 05-11-2018 15:19-0500 Weight 74.12 kg [facility] Work Phone: 03-30-2018 13:16-0500 BMI (Body Mass Index) 26.7 kg/m2 [facility] Work Phone: 03-30-2018 13:16-0500 Body Temperature 97.7 [degF] [facility] Work Phone: 03-30-2018 13:16-0500 BP Diastolic 58 mm[Hg] [facility] Work Phone: 03-30-2018 13:16-0500 BP Systolic 116 mm[Hg] [facility] Work Phone: 03-30-2018 13:16-0500 Height 167 cm [facility] Work Phone: 03-30-2018 13:16-0500 Pulse (Heart Rate) 66 /min [facility] Work Phone: 03-30-2018 13:16-0500 Pulse Oximetry 97 % [facility] Work Phone: 03-30-2018 13:16-0500 Respiratory Rate 16 /min [facility] Work Phone: 03-30-2018 13:16-0500 Weight 74.48 kg [facility] Work Phone: 12-05-2017 11:24-0400 BMI (Body Mass Index) 26.61 kg/m2 [facility] 12-05-2017 11:24-0400 BP Diastolic 78 mm[Hg] [facility] 12-05-2017 11:24-0400 BP Systolic 130 mm[Hg] [facility] 12-05-2017 11:24-0400 Height 162.6 cm [facility] 12-05-2017 11:24-0400 Pulse (Heart Rate) 57 /min [facility] 12-05-2017 11:24-0400 Weight 70.31 kg [facility] 11-07-2017 09:44-0400 BMI (Body Mass Index) 26.61 kg/m2 [facility] 11-07-2017 09:44-0400 Height 162.6 cm [facility] 11-07-2017 09:44-0400 Weight 70.31 kg [facility] 10-08-2017 14:41-0400 BMI (Body Mass Index) 26.61 kg/m2 [facility] 10-08-2017 14:41-0400 Height 162.6 cm [facility] 10-08-2017 14:41-0400 Weight 70.31 kg [facility] Encounters Encounter Date Encounter Type Care Provider Facility Start: 11-20-2023 ambulatory Karen Cardoso Facility:[facility] Start: 11-19-2023 End: 11-19-2023 Patient encounter procedure DO Karen Cardoso Work Phone: [facility] Start: 11-19-2023 End: 11-19-2023 ambulatory DO Karen Cardoso Work Phone: [facility] Work Phone: Start: 11-19-2023 End: 11-19-2023 ambulatory DO Karen Cardoso Work Phone: [facility] Work Phone: Start: 11-19-2023 End: 11-19-2023 Patient encounter procedure DO Karen Cardoso Work Phone: [facility] Work Phone: Start: 11-11-2023 Registered Recurring DO Karen Cardoso Work Phone: [facility] Start: 09-18-2023 End: 09-18-2023 ambulatory DO Karen Cardoso Work Phone: [facility] Work Phone: Start: 09-18-2023 End: 09-18-2023 Patient encounter procedure DO Karen Cardoso Work Phone: [facility] Work Phone: Start: 09-15-2023 End: 09-15-2023 Patient encounter procedure DO Karen Cardoso Work Phone: [facility] [place] Work Phone: Start: 09-15-2023 End: 09-15-2023 ambulatory DO Karen Cardoso Work Phone: [facility] Work Phone: Start: 09-15-2023 End: 09-15-2023 Departed Referred DO Karen Cardoso Work Phone: [facility] [place] Work Phone: Start: 09-09-2023 End: 09-09-2023 ambulatory ANGELA DUBOSE Not Available Start: 09-09-2023 End: 09-09-2023 ambulatory TERRANCE WOODARD Not Available Start: 08-29-2023 End: 08-30-2023 ambulatory JASON JENSEN Not Available Start: 08-20-2023 End: 08-20-2023 ambulatory TERRANCE WOODARD Not Available Start: 07-24-2023 End: 07-24-2023 ambulatory JASON Kaba ALLAANA Not Available Start: 07-10-2023 End: 07-10-2023 ambulatory TERRANCE WOODARD Not Available Start: 06-26-2023 End: 06-26-2023 Patient encounter procedure DO Karen Cardoso Work Phone: [facility] [place] Work Phone: Start: 06-25-2023 End: 06-25-2023 ambulatory MILAGROS LAI Not Available Start: 06-23-2023 Registered Recurring DO Karen Cardoso Work Phone: [facility] Start: 06-23-2023 Non-patient / Non-visit DO Saurabh Cardoso Work Phone: [facility] Work Phone: Start: 06-16-2023 End: 06-16-2023 ambulatory SHERYL COOPER Not Available Start: 06-13-2023 End: 06-13-2023 ambulatory DO Karen Cardoso Work Phone: [facility] Work Phone: Start: 06-13-2023 End: 06-13-2023 Patient encounter procedure DO Karen Cardoso Work Phone: [facility] Work Phone: Start: 05-14-2023 End: 05-14-2023 ambulatory Finn Ortez II Other [facility] [employer] Other Start: 05-14-2023 Office outpatient vi sit 15 minutes Finn Pérez II [facility] Start: 05-14-2023 End: 05-14-2023 Patient encounter procedure DO Karen Cardoso Work Phone: [facility] Start: 04-15-2023 End: 04-15-2023 ambulatory Karen Cardoso Other [employer] Other Start: 04-15-2023 Telephone encounter Karen Cardoso [facility] [place] Start: 03-18-2023 Registered Recurring DO Karen Cardoso Work Phone: [facility] Start: 01-09-2023 End: 01-09-2023 ambulatory Karen Cardoso Other [facility] Other Start: 01-09-2023 Telephone encounter Karen Cardoso [facility] [place] Start: 12-17-2022 End: 12-17-2022 ambulatory Karen Cardoso Other [employer] Other Start: 12-17-2022 Telephone encounter Karen Cardoso [facility] [place] Start: 12-13-2022 End: 12-13-2022 ambulatory Karen Cardoso Other [employer] Other Start: 12-13-2022 Telephone encounter Karen Cardoso [facility] [place] Start: 12-12-2022 End: 12-12-2022 ambulatory Karen Cardoso Other [employer] Other Start: 12-12-2022 Office outpatient vi sit 25 minutes Karen Cardoso [facility] [place] Start: 09-02-2022 End: 09-02-2022 ambulatory Karen Cardoso Other [employer] Other Start: 09-02-2022 Telephone encounter Karen Cardoso [facility] [place] Start: 08-27-2022 End: 08-27-[address] KAREN CARDOSO Facility:[facility] Start: 08-01-2022 End: 08-01-2022 ambulatory Karen Cardoso Other [employer] Other Start: 08-01-2022 Telephone encounter Karen Cardoso [facility] [place] Start: 07-18-2022 End: 07-18-2022 ambulatory Finn Ortez II Other [employer] Other Start: 07-18-2022 Telephone encounter Finn Ortez II [facility] Start: 07-12-2022 [facility] visit new patient Finn hollingsworth II [facility] Start: 07-12-2022 End: 07-12-2022 ambulatory DO Karen Cardoso Work Phone: [facility] Work Phone: Start: 07-12-2022 End: 07-12-2022 Patient encounter procedure DO Karen Cardoso Work Phone: [facility] Start: 06-13-2022 End: 06-13-2022 ambulatory Karen Cardoso Other [employer] Other Start: 06-13-2022 Office outpatient vi sit 15 minutes Karen Cardoso [facility] [place] Start: 03-12-2022 Telephone encounter Karen Cardoso [facility] [place] Start: 03-12-2022 End: 03-13-[address] MELENDEZ LISTED REQUEST [facility] Other Start: 03-06-2022 End: 03-06-2022 ambulatory Karen Cardoso Other [facility] Other Start: 03-06-2022 Telephone encounter Karen Cardoso [facility] [place] Start: 02-12-2022 End: 02-12-2022 ambulatory Karen Cardoso Other [employer] Other Start: 02-12-2022 Telephone encounter Karen Cardoso [facility] [place] Start: 02-07-2022 Telephone encounter Karen Cardoso [facility] [place] Start: 02-07-2022 End: 02-08-[address] KAREN CARDOSO [facility] Other Start: 12-06-2021 End: 12-06-2021 ambulatory Karen Cardoso Other [employer] Other Start: 12-06-2021 Office outpatient vi sit 25 minutes Karen Cardoso [facility] [place] Start: 12-03-2021 End: 12-03-2021 ambulatory Karen Maggiesrinivas Other [employer] Other Start: 12-03-2021 Telephone encounter Karen Cardoso [facility] [place] Start: 11-28-2021 End: 11-29-[address] NONE LISTED REQUEST Facility: Start: 02-06-2021 End: 02-10-2021 ambulatory KAREN CARDOSO [facility] Start: 06-05-2020 End: 06-05-2020 Orders Only Annmarie Xavier Work Phone: [facility] Start: 05-23-2020 End: 05-23-2020 Office outpatient visit 15 minutes Chito Land Work Phone: [facility] Comment on above: Primary osteoarthrit is of right hip (Primary Dx); Greater trochanteric bursitis of right hip Start: 05-02-2020 End: 05-02-2020 Patient encounter procedure Chito Land Work Phone: [facility] Comment on above: Primary osteoarthrit is of right hip (Primary Dx); Greater trochanteric bursitis of right hip Start: 04-27-2020 End: 04-27-2020 Subsequent hospital visit by physician Chito Land Work Phone: [facility] Comment on above: Arrived Start: 04-27-2020 End: 04-27-2020 Office outpatient new 30 minutes Chito Land Work Phone: [facility] Comment on above: Primary osteoarthrit is of right hip (Primary Dx); Greater trochanteric bursitis of right hip; Right hip pain Start: 07-27-2018 End: 07-27-2018 Patient encounter procedure PAYTON JAMES [facility] Start: 07-27-2018 End: 07-27-2018 Office outpatient visit 15 minutes Payton K Gucci Work Phone: [facility] Comment on above: Acute swimmer's ear of both sides (Primary Dx) Start: 06-21-2018 End: 06-21-2018 Refill Payton James Work Phone: [facility] Start: 06-16-2018 End: 06-16-2018 Refill Payton Samaniegomaishaalejo Work Phone: [facility] Start: 05-11-2018 Patient encounter procedure PAYTONKIMO OCONNELLALEJO [facility] Start: 05-11-2018 End: 05-11-2018 Office outpatient visit 15 minutes Payton Leo Gucci Work Phone: [facility] Comment on above: Recurrent major depr essive disorder, in partial remission (Primary Dx); Anxiety Start: 04-09-2018 End: 04-09-2018 Patient encounter procedure Pretty Lovell [facility] Comment on above: Prescription Clarifi cation Start: 04-08-2018 End: 04-08-2018 Patient encounter procedure Other Other [facility] Start: 03-30-2018 End: 03-30-2018 Patient encounter procedure Provider Sebas [facility] Start: 03-30-2018 End: 03-30-2018 Office outpatient visit 15 minutes Payton Samaniegolynsey Work Phone: [facility] Comment on above: Recurrent major depr essive disorder, in partial remission (Primary Dx); Anxiety Start: 03-25-2018 End: 03-25-2018 Patient encounter procedure Payton Leo Gucci Work Phone: [facility] Comment on above: Medication Managemen t Start: 03-21-2018 End: 03-21-2018 Refill Payton James Work Phone: [facility] Start: 03-12-2018 Patient encounter procedure [facility] Start: 03-12-2018 End: 03-12-2018 Patient encounter procedure Paytonkimo James Work Phone: [facility] Comment on above: Arrived Start: 03-03-2018 Patient encounter procedure PAYTON JAMES [facility] Start: 02-25-2018 Patient encounter procedure BUCTHERESEUS NON-PATIENT [facility] Start: 12-05-2017 Patient encounter Sendy Preston ity:Freddy Start: 12-05-2017 End: 12-05-2017 Patient encounter Isidro Birch Work Phone: [facility] Start: 12-05-2017 End: 12-05-2017 Office outpatient visit 10 minutes Isidro Birch Work Phone: [facility] Start: 11-07-2017 Patient encounter Sendy Preston ity:Freddy Start: 11-07-2017 End: 11-07-2017 Patient encounter sIidro Birch Work Phone: [facility] Start: 11-07-2017 End: 11-07-2017 Office outpatient visit 10 minutes Isidro Birch Work Phone: [facility] Start: 10-08-2017 End: 10-09-2017 Ambulatory Isidro Birch Work Phone: [facility] Start: 10-08-2017 End: 10-08-2017 Office outpatient visit 15 minutes Isidro Birch Work Phone: [facility] Start: 10-08-2017 End: 10-08-2017 Ambulatory Isidro Birch Work Phone: [facility] Start: 09-15-2017 End: 09-15-2017 Emergency department patient visit [facility] Start: 05-27-2017 End: 05-27-2017 Ambulatory DESIRE HEWITT [facility] Start: 02-18-2017 Ambulatory CHIKI QUINTERO [facility] Start: 11-07-2016 End: 11-08-2016 Ambulatory [facility] Start: 12-13-2014 Patient encounter DESIRE MOREJON [facility] Procedures Date Procedure Procedure Detail Performing Clinician Start: 09-15-2023 Urine culture DO Karen Cardoso Work Phone: Start: 06-13-2023 Plain X-ray of right hip DO Karen Cardoso Work Phone: Start: 07-12-2022 Plain X-ray of right hip DO Karen Cardoso Work Phone: Start: 05-02-2020 Arthrocentesis aspir &/inj major jt/bursa w/us Chito Land Work Phone: Start: 03-13-2018 Mammography BUCYRUS NO N-PATIENT FAIRS Start: 10-08-2016 Colonoscopy Annmarie P rovanzana Start: 03-25-2016 Mammography Annmarie P rovanzana Start: 01-24-2015 Colonoscopy Historical Provider Plan of Treatment Date Care Activity Detail Author Start: 03-10-2027 Tetanus vaccination [facility] Start: 10-08-2026 Screening colonoscopy [facility] Start: 10-08-2026 Screening for malign ant neoplasm of colon [facility] Start: 11-19-2023 MRSA Culture MRSA Culture [facility] Start: 11-19-2023 Methicillin resistan t Staphylococcus aureus [Presence] in Unspecified specimen by Organism specific culture [facility] Start: 11-19-2023 [facility] Start: 09-15-2023 Bacteria identified in Urine by Culture [facility] Start: 09-15-2023 [facility] Start: 06-13-2023 Plain X-ray of right hip XR hi p RT min 2V(w/wo pelvis)* [facility] Start: 06-13-2023 XR Hip - right 2 Views [facility] Start: 11-27-2021 DEXA SCAN DEXA SCAN [facility] Work Phone: Start: 05-23-2020 End: 05-23-2020 Office Visit 05/23/2020 Office Visit Orthopaedics Chito Land MD [address] [place] [address] [place] [address] [phone] [facility] Start: 05-02-2020 End: 01-05-2021 Office Visit 05/02/2020 Office Visit Orthopaedics Chito Land MD [address] [place] [address] [phone] [facility] Start: 12-28-2019 Influenza vaccination INFLUENZA VACC INE (#1) [facility] Start: 12-28-2019 Influenza vaccinatio n given Sequential Influenza Vaccine (#1) [facility] Start: 10-07-2019 Pneumococcal vaccination [facility] Start: 03-12-2019 Protein mass conc MAMMOGRAM SC REENING DISCUSSION [facility] Work Phone: Start: 03-12-2019 Screening mammography MAMMOGRA M SCREENING DISCUSSION [facility] Start: 05-11-2018 End: 05-11-2018 Ambulatory 05/11/2018 Office Visit Family Medicine Payton James MD [address] [place] [address] [phone] [facility] Start: 03-30-2018 End: 03-30-2018 Ambulatory [facility] Medicine Comment on above: Arrived Start: 12-27-2017 Influenza vaccination SEQUENTI AL INFLUENZA VACCINE (#1) [facility] Start: 12-05-2017 End: 12-05-2017 Ambulatory 12/05/2017 Office Visit Orthopedic Surgery Isidro Birch MD [address] [place] [address] [phone] [facility] Start: 11-07-2017 End: 11-07-2017 Ambulatory 11/07/2017 Office Visit Orthopedic Surgery Isidro Birch MD [address] [place] [address] [phone] [facility] Start: 04-29-2017 Protein mass conc MAMMOGRAM SC REENING DISCUSSION [facility] Work Phone: Start: 04-29-2017 Screening for malign ant neoplasm of cervix [facility] Work Phone: Start: 03-25-2017 [facility] Start: 03-05-2017 History and physical examination, annual for health maintenance Wellness Visit [facility] Start: 01-25-2016 Colonoscopy COLORECTAL CAN CER SCREENING DISCUSSION [facility] Start: 01-25-2016 Protein mass conc COLON CANCER SCREENING DISCUSSION [facility] Start: 12-14-2015 Screening for malign ant neoplasm of colon Fecal occult blood test (FOBT,FIT) [facility] Start: 2014 Zoster vaccine hzv l esteban for subcutaneous use ZOSTER VACCINE [facility] Start: 2004 Administration of he rpes zoster vaccine Zoster Vaccines (1 of 2) [facility] Start: 2004 Colonoscopy COLON CANCER S CREENING DISCUSSION [facility] Start: 2004 Protein mass conc COLON CANCER SCREENING DISCUSSION [facility] Work Phone: Start: 2004 Screening for malign ant neoplasm of colon [facility] Start: 2004 Zoster vaccine hzv l esteban for subcutaneous use ZOSTER (SHINGLES) VACCINE (1 of 2) [facility] Start: 1994 Fasting lipid profile LIPID SCREENIN G [facility] Work Phone: Start: 1973 Third diphtheria, tetanus and acellular pertussis (DTaP) vaccination TDAP (ADULT) [facility] Work Phone: Start: 1972 Hepatitis C antibody , confirmatory test Hepatitis C Screening [facility] Start: 1972 Tetanus vaccination TETANUS [facility] Work Phone: Start: 1970 COVID-19 Vaccine (1 of 2) COVID-19 Vaccine (1 of 2) [facility] Start: 1969 HIV screening HIV Screening [facility] Start: 10-07-1967 HIV screening HIV SCREENING DISCUSSION [facility] Work Phone: Start: 1954 Fall risk assessment Falls Risk Asse ssment [facility] Start: 1954 End: 1954 Hepatitis C antibody, confirmatory test HEPATITIS C VIRUS SCREENING [facility] Work Phone: Start: 1954 HEPATITIS C SCREENING HEPATITIS C SC REEBINH [facility] Start: 1954 Screening for malign ant neoplasm of cervix PAP SMEAR [facility] Comprehensive metabo lic 1999 panel - Serum or Plasma [facility] Cotinine [Mass/volum e] in Serum or Plasma [facility] Glucose measurement estimated from glycated hemoglobin [facility] Hemoglobin [Mass/vol ume] in Blood [facility] End: 03-12-2018 MG Breast Views MAMMO SCREENING BILATERAL Routine Screening for breast cancer 1 Occurrences starting 03/12/2018 until 03/12/2018 [facility] Work Phone: Comment on above: 1 Occurrences starti ng 03/12/2018 until 03/12/2018 MG Breast Views MAMMO SCREENING BILATERAL Routine Screening for breast cancer 03/12/2018 1:05 PM [facility] Work Phone: Nicotine [Mass/volum e] in Serum or Plasma [facility] End: 04-27-2020 Radiography of hip XR HIP WITH PELVIS RIGHT Imaging Routine Right hip pain 1 Occurrences starting 04/27/2020 until 04/27/2020 [facility] Comment on above: 1 Occurrences starti ng 04/27/2020 until 04/27/2020 Radiography of hip XR HIP WITH P JEFF RIGHT Imaging Routine Right hip pain 04/27/2020 9:13 AM EST [facility] End: 10-08-2017 XR Wrist Right 3+ Views (Standard) XR Wrist Right 3+ Views (Standard) Routine Left wrist pain Once for 1 Occurrences starting 10/08/2017 until 10/08/2017 [facility] XR Wrist Right 3+ Vi ews (Standard) XR Wrist Right 3+ Views (Standard) Routine Left wrist pain 10/08/2017 2:17 PM EDT [facility] Immunizations Immunization Date Immunization Notes Care Provider Alexia tracey 01-29-2021 COVID-19 mRNA, Comirnaty (Pfizer) DO Karen Cardoso Work Phone: [facility] 07-18-2020 COVID-19 Vaccine Pfi zer - Documentation Purposes Only Karen Cardoso Other [facility] 06-26-2020 COVID-19 Vaccine Pfi zer - Documentation Purposes Only Karen Cardoso Other [facility] 03-03-2018 influenza virus vaccine, unspecified formulation [facility] 03-10-2017 diphtheria, tetanus toxoids and acellular pertussis vaccine, unspecified formulation Annmarie Xavier [facility] 03-10-2017 tetanus toxoid, redu jim diphtheria toxoid, and acellular pertussis vaccine, [facility] 08-26-2013 tetanus toxoid, redu jim diphtheria toxoid, and acellular pertussis vaccine, adsorbed Annmarie [facility] 01-26-2010 zoster vaccine, live DO Ronak Cardoso Work Phone: [facility] Payers Date Payer Category Payer Medicare MEDICARE ANTHEM HMO OR PPO MEDICARE ANTHEM HMO OR PPO xxxxxxxxxxxx 2017-Present [id number] 2017 Medicare [id number] 2015 Medicare [id number] [id number] 1960 Self-pay [id number] 1954 Unknown [id number] [id number]3 1954 Unknown [id number] 2.16.840.1.695428.3.579.2.903 1954 Unknown [id number] 2.16.840.1.408554.3.579.2.593 1954 Unknown [id number] 2.16.840.1.831938.3.579.2.593 1954 Unknown [id number] 2.16.840.1.628594.3.579.2.593 1954 Unknown [id number] 2.16.840.1.354157.3.579.2.125 9 1954 Unknown [id number] 2.16.840.1.169516.3.579.2.125 9 1954 Unknown [id number] 2.16.840.1.644276.3.579.2.125 9 1954 Unknown [id number] 2.16.840.1.809905.3.579.2.125 9 1954 Unknown [id number] 2.16.840.1.289912.3.579.2.125 9 1954 Unknown [id number] 2.16.840.1.585441.3.579.2.125 9 1954 Unknown [id number] 2.16.840.1.677245.3.579.2.125 9 1954 Unknown [id number] 2.16.840.1.851214.3.579.2.125 9 1954 Unknown [id number] 2.16.840.1.423389.3.579.2.[address] [facility] [id number] Unknown [id number] 2..840.1.293892.3.579.2.593 Unknown [id number] 2.16.840.1.512228.3.579.2.593 Unknown [id number] 2.16.840.1.868482.3.579.2.593 Unknown [id number] 2.16.840.1.100088.3.579.2.531 Unknown [id number] 2.16.840.1.892656.3.579.2.531 Unknown [id number] 2.16.840.1.160715.3.579.2.531 Unknown [id number] 2.16.840.1.556779.3.579.2.531 Social History Date Type Detail Facility Start: 10-08-2017 End: 09-15-2023 Tobacco smoking status NHIS Never smoker [facility] Sex Assigned At Not on file Miguel de jesus Start: 03-03-2018 Alcohol Comment 2 beers a week [facility] Start: 12-05-2017 End: 04-27-2020 Tobacco use and exposure Never used [facility] Start: 12-05-2017 End: 04-27-2020 Alcohol intake Current drinker of alcohol (finding) [facility] Start: 09-25-2016 Alcohol Comment [facility] Sex Assigned At Sex Assigned At Bir th [facility] Start: 1955 Sex Assigned At Female F [facility] Clinical Notes 06-11-2021 to 09-15-2023 Note Date & Type Note Facility 09-15-2023 Evaluation note Authored September 15, 2023 2:26p m The above note written by __ _Lina Bay____ acting as human recorder, note dictated by Dr. Armijo .I performed the above HPI, ROS, and Examination. I formulated and dictated the treatment plan and was present for entire encounter. Karen Cardoso D.O. [facility] Work Phone: 1(429) 304-127602-29-2024 Evaluation note* Author Karen Cardoso [facility] Authored June 26, 2023 10:58am The above note written by __ _Lina Bay____ acting as human recorder, note dictated by Dr. Armijo .I performed the above HPI, ROS, and Examination. I formulated and dictated the treatment plan and was present for entire encounter. Karen Cardoso D.O. [facility] Work Phone: 1(831) 904-482802-29-2024 Evaluation note* Author Karen Cardoso [facility] Authored June 26, 2023 10:58am The above note written by __ _Lina Bay____ acting as human recorder, note dictated by Dr. Armijo .I performed the above HPI, ROS, and Examination. I formulated and dictated the treatment plan and was present for entire encounter. Karen Cardoso D.O. Author Karen Cardoso [facility] Authored September 15, 2023 2:26p m The above note written by __ _Lina Bay____ acting as human recorder, note dictated by Dr. Armijo .I performed the above HPI, ROS, and Examination. I formulated and dictated the treatment plan and was present for entire encounter. Karen Cardoso D.O. [facility] Work Phone: 1(948) 487-630701-17-2024 Evaluation note* Encounter Date Diagnosis Assessment Notes Treatment Notes Treatment Clinical Notes Apr, Primary osteoarthritis of right hip (ICD-10 - M16.11) Apr, Greater trochanteric bursitis of right hip (ICD-10 - M70.61) Apr, Other 1. We had a rica g discussion regarding the etiology of their symptoms. I explained to the patient that greater trochanteric bursitis is a chronic condition and as a result may require several rounds of physical therapy and or injections. Furthermore, it requires a diligent home exercise regimen to prevent flareups. 2. We discussed oral anti-inflammatorie s and Tylenol. Recommended utilizing [id number] oral anti-inflammatorie s. Recommended adjusting their Tylenol dosing to 1000mg [...] injection well. 5. Follow up as needed [facility] 09-14-2023 Evaluation note* Encounter Date Diagnosis Assessment Notes Treatment Notes Treatment Clinical Notes Dec, Bipolar depression (ICD-10 - F31.9) [facility] 08-18-2023 Evaluation note* Encounter Date Diagnosis Assessment Notes Treatment Notes Treatment Clinical Notes Nov, Bipolar depression (ICD-10 - F31.9) Nov, Hyperlipidemia (ICD-10 - E78.5) [facility] 08-17-2023 Evaluation note* Encounter Date Diagnosis [...] that she was seeing a lady at [facility] but has not seen her in over [...] Weight loss (ICD-10 - R63.4) Nov, Other buckle gluer (current) drug therapy (ICD-10 - Z79.899) [facility] Other 03-17-2023 Evaluation note* Encounter Date Diagnosis [...] consider looking at her hip joint further. [facility] Other 02-16-2023 Evaluation note* Encounter Date Diagnosis [...] her AST is 21. ALT is 16. May, Hip pain (ICD-10 - M25.559) right hip She would like to see an day habilitation specialist for her right hip. She had [...] her white blood cell count. May, Other buckle gluer (current) drug therapy (ICD-10 - Z79.899) May, Bipolar depression (ICD-10 - F31.9) Continue with specialist as directed. May, Other I did provide h er with a lab order today to have labs drawn prior to her appointment in November (2022). If she decides to have outreach lab drawn through the [facility] she should call and we will give her an order for just an AST/ALT. We discussed how much Calcium she should be taking, I did recommend she take [id number] daily. Recommend Calcium Citrate. [facility] Other 11-09-2022 Evaluation note* Encounter Date Diagnosis Assessment Notes Treatment Notes Treatment Clinical Notes Feb, Hyperlipidemia (ICD-10 - E78.5) [facility] Other 10-18-2022 Evaluation note* Encounter Date Diagnosis [...] to normal because of the cyst. In 2018 her white blood cell count was checked and it was 6.4 which was normal for her. I would like to repeat lab in 4-6 weeks to be sure this is continuing to get better, if it has gone back up then we would refer her to a professional nurse. 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 She admits to not being a healthy eater so she feels the walking helps. She is walking three miles almost daily. 11 Aug, 2022 Bipolar depression (ICD-10 - F31.9) She voices that she began seeing Marily Avina for evaluation, she has Bipolar Depression. She voices that this combination of medication is working very well for her. [facility] Other 02-14-2022 NoteHISTORY: Bone density screening. COMPARISON: [...] and signed by Trell Martin on 06/11/2021 1237[facility] [place] [facility]istEvaluation noteNo InformationNort [employer] Other Evaluation noteNo assessment information available [facility] Work Phone: Evaluation note* Diagnosis Onset Date Resolution Status Greater trochanteric bursitis of right hip acute Primary osteoarthritis of right hip acute [facility] Work Phone: History general Narrative - Reported* Type Description Date Medical History depression Medical History IBS Medical History Carrier of Herpes. Surgical History hysterectomy Surgical History 3x carpal tunnel surgery Surgical History left hip replacement / Dr. Vincent (?) 2015 Surgical History breast reduction Surgical History arm fat reduction Surgical History gallbladder removal Surgical History tubal liagation Surgical History Colonoscopy /needs repeat in 10 years / Dr. Wu 02/23/2020 Hospitalization History see above [facility] Other History general Narrative - Reported* Type Description [...] repeat in 202902/23/2020 Hospitalization History see above [facility] Other Assessments Diagnosis Left wrist pain Pain [...] sister Malignant neoplasm Unknown Diabetes mellitus Unknown Relationship Condition Age at Onset Recorded Date/T courtney father Family history of mental disorder Unknown Alzheimer's dementia Unknown Unknown mother Unknown Malignant neoplasm Unknown Family history of lung cancer Unknown sister Malignant neoplasm Unknown Diabetes mellitus Unknown Advance Directives No Advanced Directives Records Found Advance Directive Response Recorded Date/ Time Advance Directives No July 18 023 7:39am Advance Directive Response Recorded Date/ Time Advance Directives No July 18 023 8:39am Instructions * Patient Instructions - Payton James MD - 03/30/2018 1:36 PM EST 1. [...] in this encounter* Patient Instructions - Payton James MD - 05/11/2018 4:12 PM EST 1. [...] encounter History of Present Illness * Payton James MD - 03/30/2018 1:10 PM EST Formatting [...] about 30 minutes. in this encounter* Payton James MD - 05/11/2018 3:00 PM EST Formatting [...] effective but gave her migraines. In addition, natonino notes improved obsessive compulsive behaviors that are [...] Additions if any: Chito Land MD, [facility] Floor Worker Well Service - [facility] * Rachna Hunter - 05/02/2020 [...] HIP REPLACEMENT Left 2015 GALL BLADDER SURGERY 1997 HYSTERECTOMY 1987 endometriosis RELEASE CARPAL TUNNEL Bilateral [...] from the last injection. Chito Land MD, [facility] Orth[facility]ics [facility] Sports Medicine Floor Worker Well Service - [facility] * Corinne Shaffer [...] plan: PRN documented in this encounter* Payton James MD - 07/27/2018 8:50 AM EDT History [...] findings. Additions if any: Chito Land MD, [facility] Sports Medicine Floor Worker Well [facility] - [facility] * Corinne Shaffer [...] breast cancer Procedures MAMMO SCREENING BILATERAL Payton James MD [address] [place] [address] Reason appt 07/12/22 at 10am pt needs consult to discuss right hip pain Diagnosis 1 Hip pain (M25.559) Referral Organization [facility] [employer] [facility] Referring Provider First Name Karen Referring Provider Last Name Walker Referring Provider Specialty Family Prac ernie Referred Organization [facility] Referred Provider Finn Ortez II Referred Address [address] [place],[address] Referred Provider Specialty Orthopedic S urgery Referral Priority Routine Referral Appointment Date 2022-07-12 General Notes Sheryl Engle 06/13/2022 10:20:15 AM > referral sent p2p. pt understands she will be contacted to schedule this appt. 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 pt understands that she will be contacted to schedule this appt. Reason appt audiology con sult for decreased hearing Diagnosis 1 Decreased hearing (H 91.90) Referral Organization [facility] Referring Provider First Name Karen Referring Provider Last Name Walker Referring Provider Specialty Family Prac ernie Referred Organization [facility] Referred Address ,[place], [place],[address] Referred Provider Specialty Audiologists Referral Priority Routine General Notes Sheryl Engle 04/15/2023 10:18:38 AM > referral faxed to [facility] in Dr Lai' office. pt and understand they will be [...] right hip Primary osteoarthritis of right hip Chief Complaint BH review labs possible UTI Reason for Visit Bipolar depression Breast cancer screening by mammogram Hyperglycemia Hyperlipidemia Primary osteoarthritis of right hip Weight loss Chief Complaint BH review labs possible UTI Reason for Visit Bipolar depression Breast cancer screening by mammogram Hyperglycemia Hyperlipidemia Primary osteoarthritis of right hip Weight loss Dysuria Urinary frequency Chief Complaint BH review labs r35.0 r30.0 possible UTI Reason for Visit Bipolar depression Breast cancer screening by mammogram Hyperglycemia Hyperlipidemia Primary osteoarthritis of right hip Weight loss Dysuria Urinary frequency Chief Complaint BH review labs r35.0 r30.0 possible UTI 3 months Reason for Visit Bipolar depression Breast cancer screening by mammogram Hyperglycemia Hyperlipidemia Primary osteoarthritis of right hip Weight loss Dysuria Urinary frequency Primary osteoarthritis of right hip Chief Complaint r35.0 r30.0 possible UTI 3 months BH 2 MONTHS WANTS TO DISCUSS SURGERY Reason for Visit Dysuria Urinary frequency Primary osteoarthritis of right hip Primary osteoarthritis of right hip Chief Complaint r35.0 r30.0 possible UTI 3 months BH 2 MONTHS WANTS TO DISCUSS SURGERY m16.11 z79.899 m81.0 Reason for Visit Dysuria Urinary frequency Primary osteoarthritis of right hip Primary osteoarthritis of right hip Additional Source Comments INFORMATION SOURCE (unrecogn ized section and content) DATE CREATED AUTHOR 10/20/2017 [facility] DATE CREATED AUTHOR AUTHOR'S ORGANIZ ATION 10/24/2017 [facility] DATE CREATED AUTHOR AUTHOR'S ORGANIZ ATION 11/12/2017 [facility] DATE CREATED AUTHOR AUTHOR'S ORGANIZ ATION 11/12/2017 [facility] DATE CREATED AUTHOR AUTHOR'S ORGANIZ ATION 12/20/2017 [facility] DATE CREATED AUTHOR AUTHOR'S ORGANIZ ATION 04/06/2018 [facility] DATE CREATED AUTHOR AUTHOR'S ORGANIZ ATION 07/30/2018 [facility] DATE CREATED AUTHOR AUTHOR'S ORGANIZ ATION 02/10/2021 [facility] DATE CREATED AUTHOR AUTHOR'S ORGANIZ ATION 06/11/2021 [facility] dical Specialist DATE CREATED AUTHOR AUTHOR'S ORGANIZ ATION 08/28/2022 [facility] DATE CREATED AUTHOR AUTHOR'S ORGANIZ ATION 09/10/2023 [facility] dical Specialists EPIC DATE CREATED AUTHOR AUTHOR'S ORGANIZ ATION 11/26/2023 [facility] y[facility]ician [facility] Reason for Visit (unrecogniz ed section and content) Reason Comments Medication Management Reason Comments Medication Refill Reason Comments Prescription Clarification Status Reason Specialty Diagnoses / Procedures Referre d By Contact Referred To Contact Closed Diagnoses Screening for breast cancer Procedures MAMMO SCREENING BILATERAL Payton James MD [address] [place] [id number] Reason Comments Depression Antonino feels pretty g ood. Holidays didn't affect her too much. Overall she feels pretty level. Reason Comments Joint Injection Reason Comments Pain Follow-up Reason Comments Ear Pain Reason Comments Pain Right hip pain Care Teams (unrecognized sec tion and content) Team Status: Active Member Role Status Dates Karen Cardoso DO Primary Care Provider Active Team Status: Inactive Member Role Status Dates Karen Cardoso DO Primary Care Provide r, Attending Provider Active Start: September 15, 2023 End: September 15, 2023 Team Status: Inactive Member Role Status Dates Karen Cardoso DO Primary Care Provider Active S tart: September 18, 2023 End: September 18, 2023 Finn Ortez II, MD Attending Provider Active Start: September 18, 2023 End: September 18, 2023 Team Status: Active Member Role Status Dates Karen Cardoso DO Primary Care Provider Active S tart: November 11, 2023 Floyd Hampton MD Attending Provider Active Start: November 11, 2023 Team Status: Inactive Member Role Status Almita Karen Cardoso DO Primary Care Provider Active S tart: November 19, 2023 End: November 19, 2023 Finn Ortez II, MD Attending Provider Active Start: November 19, 2023 End: November 19, 2023 Team Status: Active Member Role Status Almita Karen Cardoso DO Primary Care Provider Active S tart: March 18, 2023 Floyd Hampton MD Attending Provider Active Start: March 18, 2023 Team Status: Inactive Member Role Status Dates Finn Ortez II, MD Attending Provider Active Start: May 14, 2023 End: May 14, 2023 Team Status: Inactive Member Role Status Almita Karen Cardoso DO Primary Care Provider Active S tart: June 13, 2023 End: June 13, 2023 Finn Ortez II, MD Attending Provider Active Start: June 13, 2023 End: June 13, 2023 Team Status: Active Member Role Status Almita Cardoso DO Primary Care Provider Active S tart: June 13, 2023 Finn Ortez II, MD Attending Provider Active Start: June 13, 2023 Team Status: Inactive Member Role Status Almita Karen Cardoso DO Primary Care Provider Active Finn Ortez II, MD Attending Provider Active Team Status: Active Member Role Status Almita Karen Cardoso DO Primary Care Provide r, Attending Provider Active Start: June 23, 2023 Team Status: Active Member Role Status Almita Karen Cardoso DO Primary Care Provider Active S tart: June 23, 2023 Floyd Hampton MD Attending Provider Active Start: June 23, 2023 Team Status: Inactive Member Role Status Almita Cardoso DO Primary Care Provide r, Attending Provider Active Start: June 26, 2023 End: June 26, 2023 Team Status: Active Member Role Status Almita Cardoso DO Primary Care Provide r, Attending Provider Active Start: September 15, 2023 Goals (unrecognized section and content) Goals may [...] BE BASED ON THE PRIMARY CLINICAL RECORDS. [facility] [employer] [facility]. provides no warranty or guarantee of the accuracy or completeness of information in this document.
[2023-12-06 08:16] LABS: Basophils Absolute Auto 0.1 10^3/uL (0.0-0.1); Eosinophils Absolute Auto 0.3 10^3/uL (0.0-0.7); Eosinophils Percent Auto 3.7 % (0.9-7.0); Hematocrit 41.8 % (36.0-48.0); Hemoglobin 13.3 g/dL (12.0-16.0); Immature Granulocytes Abs Auto 0.02 10^3/uL (0.00-0.03); Immature Granulocytes Pct Auto 0.3 % (0.0-0.5); Lymphocytes Absolute Auto 1.8 10^3/uL (1.2-3.8); Lymphocytes Percent Auto 26.8 % (20.5-60.0); Mean Corpuscular HGB Conc 31.8 g/dL (29.9-35.2); Mean Corpuscular Hemoglobin 29.2 pg (26.7-34.0); Mean Corpuscular Volume 91.7 fL (81.0-99.0); Mean Platelet Volume 8.7 fL (9.5-13.5); Monocytes Absolute Auto 0.5 10^3/uL (0.3-0.8); Monocytes Percent Auto 7.9 % (1.7-12.0); Neutrophils Absolute Auto 4.1 10^3/uL (1.4-6.5); Neutrophils Percent Auto 60.3 % (43.0-75.0); Platelet Count 291 10^3/uL (150-450); Red Blood Count 4.56 10^6/uL (4.20-5.40); Red Cell Distribution Width 13.8 % (11.0-15.0); White Blood Count 6.8 10^3/uL (4.0-11.0)
[2023-12-06 08:50] LABS: Anion Gap 9.9; BUN Creatinine Ratio 16.7; Calcium 8.8 mg/dL (8.5-10.1); Carbon Dioxide 32.2 mmol/L (21.0-32.0); Chloride 105 mmol/L (98-107); Estimated GFR (African America >60 (>=60); Estimated GFR (Non-African Ame >60 (>=60); Glucose 91 mg/dL (74-106); Potassium 4.1 mmol/L (3.5-5.1); Sodium 143 mmol/L (136-145)
[2023-12-06 08:51] LABS: Alanine Aminotransferase 40 U/L (14-59); Albumin Globulin Ratio 1.3; Albumin Level 3.8 g/dL (3.4-5.0); Alkaline Phosphatase 110 U/L (46-116); Aspartate Amino Transferase 32 U/L (15-37); Bilirubin Total 0.4 mg/dL (0.2-1.0); Cholesterol 189 mg/dL (<=200); HDL Cholesterol 63 mg/dL (40-60); Thyroid Stimulating Hormone 2.954 uIU/mL (0.358-3.740); Total Protein 6.8 g/dL (6.4-8.2); Triglycerides 105 mg/dL (<=150)
== END 2023-12-06 08:01 | disposition home or self-care (01) ==
LOC: LAB 08:03
PROVIDERS: PCP Family Medicine; Visit Provider Family Medicine
DX: Z79.899 Other long term (current) drug therapy (principal); E78.5 Hyperlipidemia, unspecified; R63.4 Abnormal weight loss
CPT/HCPCS: 36415; 80053; 80061; 84443; 85025

== ENCOUNTER 2023-12-19 11:35 | Emergency (ER) | payer MEDICARE, SELFPAY ==
[2023-12-19] VITALS (21 sets, daily range): BP systolic 150–178; BP diastolic 70–85; PULSE 60–87; TEMP 36.6; O2SAT 96–98; BMI 25.5
--- NOTE | 2023-12-19 11:47 | CT_ITS ---
The [address] [address] Patient Name: ALETHA LIN MRN: [id number] date: 1955 Sex: F Assigned Patient Location: ER Current Patient Location: ER Accession/Order Number: [id number] Exam Date: 12/19/2023 13:35 Report Date: 12/19/2023 14:20 At the request of: RICHARD DIAZ Procedure: CT abdomen pelvis wo con EXAM: CT abdomen pelvis wo con HISTORY: right flank pain COMPARISON: None. TECHNIQUE: Axial soft tissue windows of the abdomen and pelvis with coronal and sagittal reformats. CT dose reduction technique was used including Automated Exposure Control. Findings: Lack of intravenous contrast limits evaluation. ABDOMEN: The liver, spleen, pancreas, and adrenal glands are unremarkable. The gallbladder is surgically absent. Left peripelvic renal cysts. The largest measures approximately 3.0 cm. No left-sided renal stones or collecting system dilatation. There is asymmetric right perinephric fat stranding. There are nonobstructing right renal stones. The largest measures approximately 0.4 cm. Moderate right-sided collecting system and ureteral dilatation to the level the distal ureter with nonobstructing 0.7 cm stone. Evaluation of the bowel is limited given the absence of contrast. There are colonic diverticula. No bowel obstruction. The appendix is nondilated. The aorta is normal caliber. No enlarged abdominal lymph nodes or free abdominal fluid. Pelvis: Evaluation is limited due to streak artifact generated by the left hip arthroplasty. Unremarkable bladder. The uterus is surgically absent. No enlarged pelvic lymph nodes or free pelvic fluid. No aggressive sclerotic or lytic osseous lesions. Multilevel degenerative spondylosis. The right hip osteoarthritis. CT/CT abdomen pelvis wo con IMPRESSION: 1. Obstructing stone within the distal right ureter with moderate right-sided collecting dilatation. 2. Other nonemergent findings, as described above. Electronically authenticated by: DALJIT ARCHULETA Date: 12/19/2023 14:20
--- NOTE | 2023-12-19 11:47 | ECG_ITS ---
The [facility] Test Date: 2023-12-19 Pat Name: ALETHA LIN Department: Room: - Gender: Female [employer]: : 1955 Requested By: KAREN CARDOSO Order Number: [id number] Reading MD: CANDIS CASTRO Measurements Intervals [place] Rate: 60 P: 41 W[place]: 154 QRS: 3 QRSD: 86 T: 31 QT: 402 QTc: 403 Interpretive Statements 1100 Sinus rhythm 9110 normal ECG No previous ECG available for comparison Electronically Signed On 12-19-2023 18:10:54 EDT by CANDIS CASTRO
[2023-12-19 12:14] LABS: Basophils Absolute Auto 0.1 10^3/uL (0.0-0.1); Basophils Percent Auto 0.4 % (0.2-2.0); Eosinophils Absolute Auto 0.2 10^3/uL (0.0-0.7); Eosinophils Percent Auto 1.2 % (0.9-7.0); Hematocrit 40.6 % (36.0-48.0); Hemoglobin 13.3 g/dL (12.0-16.0); Immature Granulocytes Abs Auto 0.04 10^3/uL (0.00-0.03); Immature Granulocytes Pct Auto 0.3 % (0.0-0.5); Lymphocytes Absolute Auto 2.3 10^3/uL (1.2-3.8); Lymphocytes Percent Auto 16.7 % (20.5-60.0); Mean Corpuscular HGB Conc 32.8 g/dL (29.9-35.2); Mean Corpuscular Hemoglobin 29.2 pg (26.7-34.0); Mean Corpuscular Volume 89.2 fL (81.0-99.0); Monocytes Absolute Auto 1.2 10^3/uL (0.3-0.8); Monocytes Percent Auto 8.8 % (1.7-12.0); Neutrophils Absolute Auto 10.1 10^3/uL (1.4-6.5); Neutrophils Percent Auto 72.6 % (43.0-75.0); Platelet Count 300 10^3/uL (150-450); Red Blood Count 4.55 10^6/uL (4.20-5.40); Red Cell Distribution Width 13.7 % (11.0-15.0); White Blood Count 13.9 10^3/uL (4.0-11.0)
[2023-12-19] MEDS: ONDANSETRON PF 4 MG/2 ML VIAL IV (12:25)
[2023-12-19] MEDS: FAMOTIDINE/PF 20 MG/2 ML VIAL IV (12:25)
[2023-12-19] MEDS: KETOROLAC TROMETHAMINE 30 MG/ML VIAL 15 MG IVP (12:25)
[2023-12-19 12:36] LABS: INR 0.95; Prothrombin Time 10.1 sec (9.0-11.6)
[2023-12-19 12:37] LABS: Alanine Aminotransferase 34 U/L (14-59); Albumin Globulin Ratio 1.4; Alkaline Phosphatase 90 U/L (46-116); Anion Gap 13.4; Aspartate Amino Transferase 27 U/L (15-37); BUN Creatinine Ratio 17.7; Bilirubin Total 0.6 mg/dL (0.2-1.0); Calcium 9.2 mg/dL (8.5-10.1); Carbon Dioxide 28.2 mmol/L (21.0-32.0); Chloride 104 mmol/L (98-107); Estimated GFR (African America >60 (>=60); Estimated GFR (Non-African Ame >60 (>=60); Globulin 2.9 g/dL; Glucose 93 mg/dL (74-106); Potassium 3.6 mmol/L (3.5-5.1); Sodium 142 mmol/L (136-145); Total Protein 6.9 g/dL (6.4-8.2); Troponin I High Sensitivity 5.1 pg/mL (4.0-51.3)
--- NOTE | 2023-12-19 12:57 | ED_ITS ---
HPI - Abdominal Pain General Chief Complaint: Abdominal Pain Stated Complaint: ABDOMINAL PAIN/ BACK PAIN Time Seen by Provider: 12/19/23 11:47 Source: patient Mode of arrival: walk-in Limitations: no limitations History of Present Illness HPI narrative: Patient presenting with a right lower quadrant abdominal pain radiating to the back that started this morning, patient mentioned that she was awake already when the pain started it is not associated with any diarrhea but she mentioned that she have nausea and vomiting, she also mentioned that she had history of diverticulosis no diverticuli She had a history of cholecystectomy as well as hysterectomy The patient denies any fever or chills She gave the pain 10 out of 10 Related Data Home Medications ?Medication ?Instructions ?Recorded ?Confirmed buspirone 5 mg tablet 5 mg PO TID 12/19/23 12/19/23 desvenlafaxine succinate 25 mg 25 mg PO DAILY 12/19/23 12/19/23 tablet,extended release 24 hr simvastatin 20 mg tablet 20 mg PO DAILY 12/19/23 12/19/23 trazodone 50 mg tablet 50 mg PO BEDTIME PRN sleep 12/19/23 12/19/23 Previous Rx's ?Medication ?Instructions ?Recorded cephalexin 500 mg capsule 500 mg PO Q8H 7 days #21 caps 12/19/23 naproxen 250 mg tablet 250 mg PO BID PRN pain #20 tabs 12/19/23 ondansetron 4 mg disintegrating 4 mg PO Q8H PRN nausea and 12/19/23 tablet vomiting #10 tabs tamsulosin 0.4 mg capsule (Flomax) 0.4 mg PO DAILY #10 caps 12/19/23 Allergies Allergy/AdvReac Type Severity Reaction Status Date / Time No Known Drug Allergies Allergy Verified 12/19/23 11:41 Review of Systems ROS Status of ROS 10 or more systems reviewed and unremark able except as noted in history and below Exam Narrative Exam Narrative: Nurses notes and vital signs reviewed and patient is not hypoxic. General: Well-appearing and in no apparent distress. Skin: Warm, dry, no pallor noted. No rash. Head: Normocephalic, atraumatic. Neck: Supple, non-tender. Eye: Pupils are equal, round and EOMI. No scleral icterus. Ears, Nose, Mouth, and Throat: TM are clear, no nasal mucosal hypertrophy. Oral mucosa is moist, no posterior oropharynx erythema, uvula is mid-line Cardiovascular: Regular Rate and Rhythm without murmur, gallop or rub. Respiratory: No accessory muscle use or respiratory distress. Lungs are clear to auscultation, no wheezing, rales or rhonchi Chest Wall: no tenderness Back: No midline thoracic or lumbar vertebral tenderness. No CVA tenderness Musculoskeletal: normal ROM, no calf or popliteal tenderness, no lower extremity edema/swelling GI: Abdomen is soft, there is tenderness upon palpation of the suprapubic area there is no costophrenic angle tenderness on the right side Neurological: A&O x4. No cranial nerve dysfunction observed. No truncal ataxia. Moves all extremities. Sensation intact. Psychiatric: Cooperative and interactive. Normal mood and affect. Constitutional Vital Signs, click to edit/add: Last Vital Signs Temp 97.8 F 12/19/23 11:41 Pulse 64 12/19/23 15:32 Resp 18 12/19/23 15:32 BP 150/70 H 12/19/23 15:32 Pulse Ox 98 12/19/23 11:41 Course Vital Signs Vital signs: Vital Signs Temperature 97.8 F 12/19/23 11:41 Pulse Rate 62 12/19/23 11:41 Respiratory Rate 16 12/19/23 11:41 Blood Pressure 178/73 H 12/19/23 11:41 Pulse Oximetry 98 12/19/23 11:41 Temperature 97.8 F 12/19/23 11:41 Pulse Rate 64 12/19/23 15:32 Respiratory Rate 18 12/19/23 15:32 Blood Pressure 150/70 H 12/19/23 15:32 Pulse Oximetry 98 12/19/23 11:41 MDM - Abdominal Pain MDM Narrative Medical decision making narrative: CBC shows leukocytosis urinalysis does not show any infection although the patient does have bacteria in it but there is no white blood cells and no other signs of infection The patient did not have any burning with urination Chemistry showed no acute pathology CAT scan shows possible a 7 mm distal ureteral kidney stone with hydronephrosis The patient case was discussed with Dr. Yeager in urology service and he agreed that that right now the patient can follow-up with him as outpatient and the provided with antibiotic as well as pain medication and Flomax The patient was instructed about the importance of coming back in case of new symptoms including fever and pain The patient is to follow up with primary care physician in next 2-3 days or to return to the emergency department should any of the signs or symptoms worsen or new symptoms develop. The patient agrees with the following Diagnosis and Treatment plan and the patient will be discharged home. Lab Data Labs: Lab Results 12/19/23 12/19/23 Range/Units 11:58 15:00 WBC 13.9 H (4.0-11.0) 10^3/uL RBC 4.55 (4.20-5.40) 10^6/uL Hgb 13.3 (12.0-16.0) g/dL Hct 40.6 (36.0-48.0) % MCV 89.2 (81.0-99.0) fL MCH 29.2 (26.7-34.0) pg MCHC 32.8 (29.9-35.2) g/dL RDW 13.7 (11.0-15.0) % Plt Count 300 (150-450) 10^3/uL MPV 9.0 L (9.5-13.5) fL Neut % (Auto) 72.6 (43.0-75.0) % Lymph % (Auto) 16.7 L (20.5-60.0) % [place] % (Auto) 8.8 (1.7-12.0) % Eos % (Auto) 1.2 (0.9-7.0) % Baso % (Auto) 0.4 (0.2-2.0) % Neut # (Auto) 10.1 H (1.4-6.5) 10^3/uL Lymph # (Auto) 2.3 (1.2-3.8) 10^3/uL [place] # (Auto) 1.2 H (0.3-0.8) 10^3/uL Eos # (Auto) 0.2 (0.0-0.7) 10^3/uL Baso # (Auto) 0.1 (0.0-0.1) 10^3/uL Abs Immat Gran (auto) 0.04 H (0.00-0.03) 10^3/uL Imm/Tot Granulo (auto) 0.3 (0.0-0.5) % PT 10.1 (9.0-11.6) sec INR 0.95 Sodium 142 (136-145) mmol/L Potassium 3.6 (3.5-5.1) mmol/L Chloride 104 (98-107) mmol/L Carbon Dioxide 28.2 (21.0-32.0) mmol/L Anion Gap 13.4 BUN 14.0 (7.0-18.0) mg/dL Creatinine 0.79 (0.55-1.02) mg/dL Est GFR ( Amer) >60 (>=60) Est GFR (Non-Af Amer) >60 (>=60) BUN/Creatinine Ratio 17.7 Glucose 93 (74-106) mg/dL Calcium 9.2 (8.5-10.1) mg/dL Total Bilirubin 0.6 (0.2-1.0) mg/dL AST 27 (15-37) U/L ALT 34 (14-59) U/L Alkaline Phosphatase 90 (46-116) U/L Troponin I High Sens 5.1 (4.0-51.3) pg/mL Total Protein 6.9 (6.4-8.2) g/dL Albumin 4.0 (3.4-5.0) g/dL Globulin 2.9 g/dL Albumin/Globulin Ratio 1.4 Urine Color Yellow (YELLOW) Urine Clarity Sl cloudy (CLEAR) Urine pH 5.5 (5.0-9.0) Ur Specific [place] >=1.030 A (1.005-1.025) Urine Protein Trace (NEG/TRACE) mg/dL Urine Glucose (UA) Negative (NEGATIVE) mg/dL Urine Ketones 40 A (NEGATIVE) mg/dL Urine Occult Blood Large A (NEGATIVE) Urine Nitrite Negative (NEGATIVE) Urine Bilirubin Negative (NEGATIVE) Urine Urobilinogen 0.2 (0.2-1.0) EU/dL Ur Leukocyte Esterase Negative (NEGATIVE) Urine RBC 75-100 A (0-2) #/HPF Urine WBC 2-5 A (NONE SEEN) #/HPF Ur Squamous Epith Cells Few A (NONE/RARE) #/LPF Urine Crystals Seen A (None Seen) #/HPF Calcium Oxalate Crystal Rare Urine Bacteria Moderate A (NONE SEEN) #/HPF Urine Casts Seen A (NONE SEEN) #/LPF Urine Mucus Trace A (NONE SEEN) Urine Yeast Seen A (NONE SEEN) Ur Culture Indicated? Yes Discharge Plan Discharge Stand Alone Forms: Work/School Release, Portal Instructions Chief Complaint: Abdominal Pain Clinical Impression: Calculus of kidney Patient Disposition: Home, Self-Care Time of Disposition Decision: 16:07 Condition: Good Prescriptions / Home Meds: New tamsulosin [Flomax] 0.4 mg capsule 0.4 mg PO DAILY Qty: 10 0RF naproxen 250 mg tablet 250 mg PO BID PRN (Reason: pain) Qty: 20 0RF ondansetron 4 mg tablet,disintegrating 4 mg PO Q8H PRN (Reason: nausea and vomiting) Qty: 10 0RF cephalexin 500 mg capsule 500 mg PO Q8H 7 Days Qty: 21 0RF No Action buspirone 5 mg tablet 5 mg PO TID desvenlafaxine succinate 25 mg tablet extended release 24 hr 25 mg PO DAILY simvastatin 20 mg tablet 20 mg PO DAILY trazodone 50 mg tablet 50 mg PO BEDTIME PRN (Reason: sleep) Print Language: Irish Instructions: Kidney Stones (ED), How to Strain Your Urine (ED), Hydronephrosis (ED) Referrals: KAREN CARDOSO [Primary Care Provider] - 1 week Maximo Branch MD [Physician] - 1 week
[2023-12-19 15:16] LABS: Bilirubin Urine NEGATIVE (NEGATIVE); Blood Urine LARGE (NEGATIVE); Clarity Urine SL CLOUDY (CLEAR); Color Urine YELLOW (YELLOW); Glucose Urine UA NEGATIVE (NEGATIVE); Ketones Urine 40 mg/dL (NEGATIVE); Leukocyte Esterase Urine NEGATIVE (NEGATIVE); Nitrite Urine NEGATIVE (NEGATIVE); Protein Urine TRACE mg/dL (NEG/TRACE); Specific Gravity Urine >=1.030 (1.005-1.025); Urobilinogen Urine 0.2 EU/dL (0.2-1.0); pH Urine 5.5 (5.0-9.0)
[2023-12-19 15:17] LABS: Urine Microscopic Indicated YES
[2023-12-19 15:26] LABS: Bacteria Urine MODERATE #/HPF (NONE SEEN); Mucus Urine TRACE (NONE SEEN); RBC Urine 75-100 #/HPF (0-2); Squamous Epithelial Cell Urine FEW #/LPF (NONE/RARE)
[2023-12-19 15:27] LABS: Calcium Oxalate Crystals Urine RARE; Cast Seen? SEEN #/LPF (NONE SEEN); Crystals Seen? Seen #/HPF (None Seen); Urine Culture Indicated YES
[2023-12-19] MEDS: 0.9 % SODIUM CHLORIDE 1,000 ML 500 ML IV (15:38)
[2023-12-19] MEDS: CEPHALEXIN 500 MG CAPSULE PO (16:22)
== END 2023-12-19 16:31 | disposition home or self-care (01) ==
PROVIDERS: Emergency Provider Emergency Medicine; PCP Family Medicine
DX: N20.0 Calculus of kidney (principal); Z90.49 Acquired absence of other specified parts of digestive tract; Z90.710 Acquired absence of both cervix and uterus
CPT/HCPCS: 36415; 74176; 80053; 81001; 84484; 85025; 85610; 87086; 93005; 96361; 96374; 96375; 99285; J1885; J2405

== ENCOUNTER 2024-02-05 11:49 | Outpatient (OUT) | payer MEDICARE, SELFPAY ==
--- OUTSIDE RECORDS SUMMARY | 2024-02-05 11:56 | XMS_ITS | CCD ---
Author Organization [facility] CliniSywv Care Team Providers Care Transportation Museum Helper Name Role Phone Desire Britt Unavailable DESIRE BRITT Unavailable Unavailab le CHIKI BRITT Unavailable Autumn vailable CHIKI BRITT Unavailable Autumn vailable DESIRE BRITT Unavailable Unavailab le HAY, AMI Unavailable Unavailable HAY, AMI Unavailable Unavailable UNKNOWN, PROVIDER Unavailable Unavailable DESIRE BRITT Unavailable Unavailable QUETAISIDRO Unavailable Unavailable QUETA, ISIDRO BUTCHERY Unavailable Unavailable DESIRE BRITT Unavailable Unavailab le QEUTA, ISIDRO KRISTOPHER Unavailable Unavailable RICKY SORIA Unavailable Unavailable QUETA, ISIDRO BUTCHERY Unavailable Unavailable DESIRE BRITT Unavailable Unavailab le [...] Unavailable Kovolyan, Payton K Primary Care Provider [phone] KOVOLYAN, PAYTON K Attending Unavailable KOVOLYAN, PAYTON K Referring Unavailable KOVOLYAN, PAYTON K Attending Unavailable KOVOLYAN, PAYTON K Referring Unavailable KOVOLYAN, PAYTON K Attending Unavailable KOVOLYAN, PAYTON K Referring Unavailable KOVOLYAN, PAYTON K Attending Unavailable KOVOLYAN, PAYTON K Referring Unavailable KOVOLYAN, PAYTON K Primary Care Unavailable Karen Cardoso Primary Care Provider [phone] Chiki Britt Primary Care [facility] KAREN CARDOSO Primary Care Unavailable JAQUELINE LEMUS Attending Unavailable Karen Cardoso Unavailable DO Karen Cardoso Primary Care Provider MD Finn Ortez II Attending Provider Finn Ortez II Unavailable REQUEST, NONE LISTED Consulting Unavaila ble WALKER, DR JOENS Primary Care Unavailable GIRVIN, DR JONES Attending Unavailable GIRVIN, DR JONES Admitting Unavailable GIRVIN, DR JONES Primary Care Unavailable GIRVIN, DR JONES Consulting Unavailable GIRVIN, DR JONES Attending Unavailable GIRVIN, DR JONES Admitting Unavailable GIRVIN, DR JNOES Primary Care Unavailable GIRVIN, DR JONES Consulting [...] Unavailable DO Karen Cardoso Primary Care Provider [phone] MD Floyd Hampton Attending Provider [phone] MD Finn Ortez II Attending Provider SHERYL COOPER Attending Unavailable KAREN CARDOSO Referring Unavailable MILAGROS LAI Attending Unavailable TERRANCE WOODARD Attending Unavailable JASON JENSEN Attending Unavailable TERRANCE WOODARD Attending Unavailable JASON JENSEN Referring Unavailable JASON JENSEN Referring Unavailable TERRANCE WOODARD Attending Unavailable ANGELA DUBOSE Attending Unavailable DO Karen Cardoso Primary Care Provider MD Floyd Hampton Attending Provider [phone] DO Karen Cardoso Attending Provider DO Karen Cardoso Primary Care Provider [phone] MD Floyd Hampton Attending Provider MD Finn Ortez II Attending Provider [phone] MD Floyd Hampton Attending Provider DO Karen Cardoso Primary Care Provider [phone] MD Floyd Hampton Attending Provider Karen Cardoso Admitting Unavailable Karen Cardoso Primary Care Unavailable Karen Cardoso Attending Unavailable Pérez II, Finn Clifford Attending Unavailabl e Pérez II, Finn Clifford Admitting Unavailabl e Girsrinivas, Karen Primary Care Unavailable Trumbull II, Finn Clifford Attending Unavailabl e Trumbull II, Finn Clifford Admitting Unavailabl e Girsrinivas, Karen Primary Care Unavailable Pérez SHAFFER, Finn Clifford Attending Unavailabl e Trumbull II, Finn Clifford Admitting Unavailabl e Walker, Karen Primary Care Unavailable Floyd Hampton Admitting Unavailab Floyd Solis Attending Unavailab le Karen Cardoso Primary Care Unavailable Pérez II, Finn Clifford Attending Unavailabl e Karen Cardoso Primary Care Unavailable Pérez SHAFFER, Finn Clifford Admitting Unavailabl e Karen Cardoso Primary Care Unavailable Trumbull II, Finn Clifford Admitting Unavailabl e Trumbull II, Finn Clifford Attending Unavailabl e Trumbull II, Finn Clifford Attending Unavailabl e GirKaren espino Primary Care Unavailable Pérez II, Finn Clifford Admitting Unavailabl e Allergies Allergy Classification Reported Allergen(s) Allergy Type Date of Onset Reaction(s) Facility (20 sources) acetaminophen / oxyCODONE; Translations: [OXYCODONE-ACETAM INOPHEN] Drug Allergy 5 Itching [facility] (20 sources) Acetaminophen / oxyCODONE; Translations: [Percocet] Drug Allergy 3 [facility] (19 sources) DULoxetine Drug Allergy headaches [facility] Other (19 sources) FLUoxetine Drug Allergy doesn't work [facility] Other (13 sources) Acetaminophen; Translations: [acetaminophen] Drug Allergy 4 [facility] (16 sources) DULoxetine; Translations: [duloxetine] Drug Allergy 4 headaches [facility] (16 sources) FLUoxetine; Translations: [fluoxetine] Drug Allergy 4 doesn't work [facility] (16 sources) oxyCODONE; Translations: [oxycodone] Drug Allergy 4 [facility] Medications Current Medications Medication Drug [...] shoulder, thigh, or buttocks once. 03/10/2017 Active acetaminophen 500 mg oral tablet (5 sources) Start: 12-25-2023 take 1000 mg by mouth every eight hours Acetaminophen Active 1000 MG PO Q8H 180 30 December 25, 2023 12:00am do not reconcile until DOS: 01/05/2024 MED TO BED ascorbic acid 500 mg oral tablet (16 sources) Vitamin C take 1 tablet by mouth every month ascorbic acid 500 MG Tab take 500 mg by mouth.. 0 Active aspirin 81 mg delayed release oral tablet (5 sources) Platelet Aggregation Inhibitor, Nonsteroidal Anti-inflammatory Drug Start: 12-25-2023 take 81 mg by mouth twice daily Aspirin Active 81 MG PO Twice daily 70 35 December 25, 2023 12:00am do not reconcile until DOS: 01/05/2024 MED TO BED atorvastatin 10 mg oral tablet (4 sources) HMG-CoA Reductase Inhibitor Start: 12-06-2021 take 1 tablet by mouth every twenty-four hours Atorvastatin Calcium 10 MG 1 tablet Orally Once a day Nov, Active Biotin (6 sources) Start: 12-22-2023 take 1 tablet by mouth once daily Biotin (Hair, Skin And Nails (Biotin)) 10,000 mcg tablet,chewable Active 50082 MCG PO Daily December 22, 2023 12:00am busPIRone hydrochloride 5 mg oral tablet (20 [...] Take by mouth daily. Active calcium carbonate 1250 mg / cholecalciferol 125 unt oral tablet (6 sources) Vitamin D Start: 12-22-2023 take 1 tablet by mouth once daily Calcium Carbonate-Vitamin D3 Active 1 TAB PO Daily December 22, 2023 12:00am cariprazine 3 mg oral capsule (6 sources) Atypical Antipsychotic Start: 12-22-2023 take 1 capsule by mouth once daily Cariprazine (Vraylar) 3 mg capsule Active 3 MG PO Daily December 22, 2023 12:00am 24 hr desvenlafaxine succinate 25 mg extended release oral tablet (9 sources) Serotonin and Norepinephrine Reuptake Inhibitor Start: 11-19-2023 take 25 mg by mouth once daily Desvenlafaxine Succinate Active 25 MG PO Daily November 19, 2023 12:00am dexamethasone 1 mg/ml / tobramycin 3 mg/ml ophthalmic suspension (5 sources) Aminoglycoside Antibacterial, Corticosteroid Start: 07-27-2018 End: 08-03-2018 tobramycin-dexamethas one 0.3-0.1 % Suspension 2 drops to bilateral ears tid 1 Bottle 0 07/27/2018 Active estradiol 0.01 mg vaginal tablet (8 sources) Estrogen Start: 06-09-2017 YUVAFEM 10 mcg Tab Insert 1 (one) tablet (10 mcg total) into the vagina once a week. 12 tablet 0 06/09/2017 Active estrogens, conjugated (longterm) 0.625 mg/ml vaginal cream (16 sources) Estrogen [...] 40 mg by mouth daily. 03/26/2018 Discontinued MULTIPLE VITAMIN PO (16 sources) MULTIPLE VITAMIN PO take by mouth.. 0 Active MULTIPLE VITAMIN PO take by mouth.. Active Multivitamin preparation (20 sources) Start: 06-26-2023 take 1 tablet by mouth once daily Multivitamin Active 1 TAB PO Daily June 26, 2023 1:00am Multivitamin Act esteban oxyCODONE hydrochloride 5 mg oral tablet (5 sources) Opioid Agonist Start: 12-25-2023 take 5 mg by mouth every four hours Oxycodone Active 5 MG PO Q4H 42 7 December 25, 2023 do not reconcile until DOS: 01/05/2024 MED TO BED pantoprazole 20 mg delayed release oral tablet (4 sources) Proton Pump Inhibitor Start: 12-25-2023 take 1 tablet by mouth once daily Pantoprazole (Protonix) 20 mg tablet,delayed release (DR/EC) Active 20 MG PO daily 35 35 December 25, 2023 12:00am do not reconcile until DOS: 01/05/2024 MED TO BED simvastatin 20 mg oral tablet (20 sources) HMG-CoA Reductase Inhibitor Start: 01-02-2024 take 1 tablet by mouth once daily in the evening Simvastatin Active 0 .ROUTE .COMPLEX 90 January 02, 2024 8:29am TAKE 1 TABLET BY MOUTH ONCE EVERYDAY IN THE EVENING AT 6PM Start: 06-13-2023 End: 01-02-2024 take 20 mg by mouth once daily Simvastatin Discontinue d 20 MG PO Daily June 13, 2023 1:00am January 02, 2024 8:29am Start: 09-08-2016 End: 03-30-2018 take 1 tablet [...] Take 1 tablet by mouth daily. Active traMADol hydrochloride 50 mg oral tablet (5 sources) Opioid Agonist Start: 4 take 50 mg by mouth every six hours Tramadol Active 50 MG PO q6h 28 7 December 25, 2023 12:00am do not reconcile until DOS: 01/05/2024 MED TO BED traZODone hydrochloride 50 mg oral tablet (6 sources) Serotonin Reuptake Inhibitor Start: 4 take 50 mg by mouth once daily at bedtime Trazodone Active 50 MG PO Daily at bedtime December 22, 2023 12:00am vortioxetine 20 mg oral tablet (20 sources) Start: 8 End: 9 take 1 tablet by mouth once daily Vortioxetine HBr 20 MG Tab Indications: Anxiety Take 1 tablet by mouth daily. 90 tablet 2 05/11/2018 Active Start: 03-30-2018 End: 05-11-2018 take 2 tablets by mouth once daily, then take 0.5 tablet by mouth vortioxetine (TRINTELLIX) 10 MG Tab tablet Take 2 tablets by mouth daily. Lot [id number], Exp 02/14 28 tablet 0 03/30/2018 05/11/2018 [...] Take 1 tablet by mouth daily. Lot [id number], exp 12/15 14 tablet 03/03/2018 03/26/2018 Discontinued Completed/Discontinued Medications Medication Drug Class(es) Dates Sig (Normalized) Sig (Original) ALPRAZolam 0.25 mg oral tablet (5 sources) Benzodiazepine End: 03-30-2018 ALPRAZolam 0.25 MG Tab tablet Take 0.5 mg by mouth as needed for Sleep. 03/30/2018 Discontinued amoxicillin 875 mg / clavulanate 125 mg oral tablet (18 sources) Penicillin-class Antibacterial Start: 09-26-2023 End: 11-19-2023 take 1 tablet by mouth twice daily at mealtime Amoxicillin-Pot Clavulanate Discontinued 1 TAB PO Twice daily 14 02September 26, 2023 11:15am November 19, 2023 8:37am with food bupivacaine hydrochloride 5 mg/ml injectable solution (2 sources) Amide Local Anesthetic Start: 05-02-2020 End: 05-02-2020 bupivacaine (MARCAINE) 0.5 % injection 1 mL calcium carbonate 1500 mg oral tablet (13 sources) Start: 06-26-2023 End: 12-22-2023 take 1 tablet by mouth once daily Calcium Carbonate (Calcium 600) 600 mg calcium (1,500 mg) tablet Discontinued 600 MG PO Daily June 26, 2023 1:00am December 22, 2023 11:54am cefadroxil 500 mg oral capsule (5 sources) Cephalosporin Antibacterial Start: 12-25-2023 End: 01-21-2024 take 500 mg by mouth every twelve hours Cefadroxil Discontinued 500 MG PO Q12H 14 7 December 25, 2023 12:00am January 21, 2024 9:29am do not reconcile until DOS: 01/05/2024 MED TO BED cephalexin 500 mg oral capsule (18 sources) Cephalosporin Antibacterial Start: 12-22-2023 End: 01-21-2024 take 500 mg by mouth every eight hours Cephalexin Discontinued 500 MG PO Every 8 hours December 22, 2023 12:00am January 21, 2024 9:29am Start: 09-15-2023 End: 09-26-2023 take 500 mg by mouth three times daily Cephalexin Discontinued 500 MG PO Three times daily 21 7 September 15, 2023 12:00am September 26, 2023 10:48am 1 ml dexamethasone phosphate 4 mg/ml injection (2 sources) Corticosteroid Start: 05-02-2020 End: 05-02-2020 dexAMETHasone (DECADRON) injection 4 mg docusate sodium 50 mg / sennosides, longterm 8.6 mg oral tablet (5 sources) Start: 12-25-2023 End: 01-21-2024 take 2 tablets by mouth once daily Sennosides-Docusat e Sodium (Senokot-S) 8.6-50 mg tablet Discontinued 2 TAB PO daily 60 30 December 25, 2023 12:00am January 21, 2024 9:29am do not reconcile until DOS: 01/05/2024 MED TO BED lamoTRIgine 25 mg oral tablet (20 sources) Mood Stabilizer, Anti-epileptic Agent Start: 06-26-2023 End: 09-15-2023 take 25 mg by mouth once daily at bedtime Lamotrigine Discontinued 25 MG PO Daily at bedtime June 26, 2023 1:00am September 15, 2023 1:58pm Start: 06-13-2023 End: 12-22-2023 take 100 mg by mouth once daily Lamotrigine Discontinu ed 100 MG PO Daily June 13, 2023 1:00am December 22, 2023 11:52am Start: 03-29-2020 take 1 tablet by anam th once daily lamoTRIgine 100 MG tablet Take 100 mg by mouth daily. 0 03/29/2020 Active 10 ml lidocaine hydrochloride 10 mg/ml injection (2 sources) Antiarrhythmic, Amide Local Anesthetic Start: 05-02-2020 End: 05-02-2020 lidocaine (XYLOCAINE) 10 mg/mL injection 4 mL meloxicam 15 mg oral tablet (20 sources) Nonsteroidal Anti-inflammatory Drug Start: 06-13-2023 End: 12-12-2023 take 15 mg by mouth once daily Meloxicam Discontinued 15 MG PO Daily September 15, 2023 1:59pm December 12, 2023 9:34am ondansetron 4 mg oral tablet (20 sources) Serotonin-3 Receptor Antagonist Start: 12-25-2023 End: 01-21-2024 take 4 mg by mouth every eight hours Ondansetron Hcl Discontinued 4 MG PO Q8H December 25, 2023 12:00am January 21, 2024 9:29am do not reconcile until DOS: 01/05/2024 MED TO BED Start: 06-26-2023 End: 06-26-2023 Ondansetron Discontinued MG [...] by mouth 4 times daily. 05/11/2018 Discontinued polyethylene glycol 3350 55458 mg powder for oral solution (5 sources) Osmotic Laxative Start: 12-25-2023 End: 01-21-2024 Polyethylene Glycol 3350 (Miralax) 17 gram/dose powder Discontinued 17 GM PO daily 7 December 25, 2023 12:00am January 21, 2024 9:29am 1 packed mixed with 8 ounces of fluid. predniSONE 10 mg oral tablet (5 sources) Start: 12-25-2023 End: 01-21-2024 take 10 mg by mouth once daily Prednisone Discontinued 10 MG PO daily 10 December 25, 2023 12:00am January 21, 2024 9:29am do not reconcile until DOS: 01/05/2024 MED TO BED sildenafil 100 mg oral tablet (20 sources) Phosphodiesterase 5 Inhibitor Start: 06-26-2023 End: 06-26-2023 take 1 tablet by mouth once daily as needed Sildenafil Discontinued 1 TAB PO Daily June 26, 2023 1:00am June 26, 2023 10:20am FreeTextSi tablet as needed Orally Once a day; Note: Source Status: Taking; Provider: Walker Bowling Start: 03-31-2018 take 1 tablet by anam once daily as needed sildenafil (VIAGRA) 100 [...] dementia, and amnestic and other cognitive disorders (20 sources) Postconcussion syndrome; Translations: [Postconcussional syndrome] Chronic Diabetes mellitus without complication (20 sources) Hyperglycemia, unspecified; Translations: [Hyperglycemia] Onset: 12-06-2021 [...] Translations: [Primary osteoarthritis of right hip] Osteoporosis (10 sources) Osteoporosis; Translations: [Age-related osteoporosis without current pathological fracture] Onset: 11-19-2023 11-19-2023 Chronic Other aftercare (2 sources) Patient encounter status; Translations: [Aftercare following joint replacement surgery] 01-20-2024 Chronic Other aftercare (2 sources) Aftercare following joint replacement surgery; Translations: [Aftercare following joint replacement] 01-21-2024 Chronic Other aftercare (9 sources) Other residential (current) drug therapy; Translations: [OTH CUSTODIAL CURRENT DRUG THERAPY] Onset: 02-07-2022 Episodic Other aftercare (9 sources) Long-term current use of drug therapy; Translations: [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] 11-19-2023 Episodic Other connective tissue disease (9 sources) Presence of unspecified artificial hip joint; Translations: [History of repair of hip joint] Onset: 09-25-2016 09-25-2016 Chronic Other connective tissue disease (3 sources) Presence of right artificial hip joint; Translations: [Hip joint replacement] Onset: 01-21-2024 01-21-2024 Chronic Other connective tissue disease (18 sources) Trochanteric bursitis; Translations: [Trochanteric bursitis, right [...] Onset: 08-28-2022 Episodic Other non-traumatic joint disorders (1 source) Pain in right shoulder; Translations: [Pain in right shoulder] Onset: 12-25-2023 Episodic Other non-traumatic joint disorders (2 sources) Pain in right hip joint; Translations: [Right hip pain] Other nutritional; endocrine; and metabolic disorders (13 sources) Abnormal weight loss; Translations: [Loss of weight] Onset: 12-06-2021 Resolved: 12-06-2021 Episodic Other nutritional; endocrine; and metabolic disorders (1 source) Abnormal weight gain Episodic Other nutritional; endocrine; and metabolic disorders (13 sources) Weight gain; Translations: [Abnormal weight gain] 06-26-2023 Episodic Other nutritional; endocrine; and metabolic disorders (13 sources) Weight loss; Translations: [Abnormal weight loss] [...] scalp, initial encounter] Onset: 09-15-2017 Episodic Unclassified (20 sources) Encounter for screening mammogram for malignant [...] [Female pelvic pain] Onset: 10-23-2016 10-23-2016 Episodic Genitourinary symptoms and ill-defined conditions (20 sources) Increased frequency of urination; Translations: [Frequency of micturition] Onset: 09-15-2023 09-15-2023 Episodic Medical examination/evaluation (1 source) Laboratory examination, [...] XR hip RT min 2V(w/wo pelvis )*on 01-21-2024 XR hip RT min 2V(w/wo pelvis)* [facility] [place] [address] [place] [address] XRay Report Signed Patient: Antonino Torres MR#: [id number] : 1955 Acct:[id number] Age/Sex: 68 / F ADM Date: 01/21/24 [place] [facility] [place] Type: [facility] Attending Dr: Finn Ortez II, MD Copies to: Finn Ortez MD Ordering Provider: Finn Ortez MD Date of Service: 01/21/24 XR/XR hip RT min 2V(w/wo pelvis)*: Z96.641 - Presence of right artificial hip joint RIGHT HIP - 2 views: CLINICAL HISTORY: Follow-up right JASON COMPARISON: Hip series 01/05/2024 FINDINGS: Bilateral THAs without radiographic complication. XR/XR hip RT min 2V(w/wo pelvis)* IMPRESSION: NO HARDWARE COMPLICATION.. Impression dictated by: Isidro Trinidad Jr., D.O.01/21/2024 12:36 PM Dictation Location: [facility]--12 Transcribed By: [facility] [place] 01/21/24 1236 Dictated By: Isidro Trinidad Jr, DO 01/21/24 1234 Signed By: 01/21/24 1236 Normal [facility] ABO/Rh Retypeon 01-05-2024 ABO/RH Recheck Result Positive Normal [facility] Comment on above: Result Comment: PERF ORMED BY: [facility] [address] [place] [address] PATHOLOGIST PILE [employer]AB[employer] KNITTER KOMAL Babb 01-05-2024 L Specimen: [id number] Received: 01/06/24 Status: SOUT Reheather Num: [id number] Spec Type: Surgical Subm Dr: Finn Ortez MD Tissues: A Femoral Head - Other than Fracture (R HIP) Procedures: HE/2, Gross/Micro L3, Decalcification Age/ Patient Sex Location Account Attending Physician Antonino Torres 68/F [place] [id number] Finn Ortez MD SPEC NUM: [id number] RECD: 01/06/24 STATUS: MELISSA REQ NUM: [id number] JASKARAN: 01/05/24 [facility] DR: Finn Ortez MD ENTERED: 01/06/24 [facility] DR: SPEC TYPE: Surgical DEPT: S ENTERED BY: [id number] RECV BY: [id number] ORDERED: HE/2, Gross/Micro L3, Decalcification ORDERED: HE/2, Gross/Micro L3, Decalcification Pathological Diagnosis Bone and tissue, right hip, arthroplasty: Degenerative changes consistent with osteoarthritis. Gross examination only. Clinical Information DJD, right hip Gross Description The specimen is received in formalin with the patient's name and bone and tissue, right hip and consists of a luis femoral head measuring 5.0 x 4.0 x 4.0 cm. The articular surface is luis-brown smooth with a area of eburnation measuring 3.5 cm in greatest dimension. Moderate osteophytic lipping grossly identified. Community Outreach Worker sections are as follows: A1 eburnation, (submitted in decal before routine processing) A2 osteophytic lipping and soft tissue, (submitted in decal before routine processing) CPT Codes 27988 Specimen: [id number] Received: 01/06/24 [address]: [facility] Req Num: [id number] Spec Type: Surgical Subm Dr: Finn Ortez MD Tissues: A Femoral Head - Other than Fracture (R HIP) Procedures: HE/2, Gross/Micro L3, Decalcification Patient: Antonino Torres [id number] (Continued) Signed (signature on file) Mary Mccarthy MD 01/15/241914 Normal [facility] XR hip RT 1Von 01-05-2024 XR hip RT 1V [place] [address] XRay Report Signed Patient: Antonino Torres MR#: [id number] : 1955 Acct:[id number] Age/Sex: 68 / F ADM Date: 01/05/24 Loc: [place] Room: Type: [facility] Attending Dr: Finn Ortez II, MD Copies to: Finn Ortez MD Ordering Provider: Finn Ortez MD Date of Service: 01/05/24 XR/XR hip RT 1V: TOTAL HIP XR hip RT 1V 01/05/2024 10:01 AM SIGNS AND SYMPTOMS: Intraoperative views for right total hip arthroplasty PROTOCOL: Intraoperative views of the right hip were obtained. COMPARISON: 06/13/2023 FINDINGS: Intraoperative views demonstrate total right hip arthroplasty hardware placement. Cumulative Air Kerma in mGy: 7.19 mGy XR/XR hip RT 1V IMPRESSION: Intraoperative views demonstrate total right hip arthroplasty hardware placement. Impression dictated by: Justen Jenkins M.D.01/05/2024 11:48 AM Dictation Location: [facility]--07 Transcribed By: [facility] [place] 01/05/24 1148 Dictated By: Justen Jenkins II, MD 01/05/24 1147 Signed By: 01/05/24 1148 Normal [facility] XR low pelvis w/RT x-table h ipon 01-05-2024 XR low pelvis w/RT x-table hip [facility] [place] [address] [place] [address] XRay Report Signed Patient: Antonino Torres MR#: [id number] : 1955 Acct:[id number] Age/Sex: 68 / F ADM Date: 01/05/24 Loc: [place] Room: Type: [facility] Attending Dr: Finn Ortez II, MD Copies to: Finn Ortez MD Ordering Provider: Finn Ortez MD Date of Service: 01/05/24 XR/XR low pelvis w/RT x-table hip: Total Hip, due in PACU Plain film low pelvis with crosstable RIGHT hip and HISTORY: Status post RIGHT hip arthroplasty LEFT knee arthroplasty present. Adequate alignment of the RIGHT hip arthroplasty. No complication. Soft tissue postsurgical changes. XR/XR low pelvis w/RT x-table hip IMPRESSION: Uncomplicated RIGHT hip arthroplasty Impression dictated by: Gary Ley M.D.01/05/2024 4:38 PM Dictation Location: [facility]-01 Transcribed By: [facility] [place] 01/05/24 1638 Dictated By: Gary Ley DO 01/05/24 1637 Signed By: 01/05/24 1638 Normal [facility] Automated basophil %Ordered By: Finn Ortez on 12-22-2023 Basophils/100 WBC (Bld) 0.2 % Normal . [facility] Comment on above: Performed By: #### C BC #### [address] #### FRUC #### [facility] , Automated basophil countOrde red By: Finn Ortez on 12-22-2023 Basophils (Bld) [#/Vol] 0.0 10*3/uL Normal 0.0-0.2 [facility] Comment on above: Result Comment: PERF ORMED BY: [place] [address] PATHOLOGIST [employer] KNITTER KOMAL COFFMAN M.D. Performed By: #### C BC #### [facility] [address] [place] [address] [place] #### FRUC #### [facility] , Automated blood monocyte cou ntOrdered By: Finn Ortez on 12-22-2023 Monocytes (Bld) [#/Vol] 0.5 10*3/uL Normal 0.0-0.8 [facility] Comment on above: Performed By: #### C BC #### [facility] [address] [place] [address] #### FRUC #### [facility] , Automated eosinophil %Ordere d By: Finn Ortez on 12-22-2023 Eosinophils/100 WBC (Bld) 2.0 % Normal . [facility] Comment on above: Performed By: #### C BC #### [facility] [address] [place] [address] [place] #### FRUC #### [facility] , Automated eosinophil countOr dered By: Finn Ortez on 12-22-2023 Eosinophils (Bld) [#/Vol] 0.1 10*3/uL Normal 0.0-0.45 [facility] Comment on above: Performed By: #### C BC #### [facility] [address] [place] [address] [place] #### FRUC #### [facility] , Automated monocyte %Ordered By: Finn Ortez on 12-22-2023 Monocytes/100 WBC (Bld) 7.0 % Normal . [facility] Comment on above: Performed By: #### C BC #### [place] [address] [place] #### FRUC #### [facility] , Automated neutrophil %Ordere d By: Finn Ortez on 12-22-2023 Neutrophils/100 WBC (Bld) 62.4 % Normal . [facility] Comment on above: Performed By: #### C BC #### [place] [address] [place] #### FRUC #### [facility] , Complete Blood Count Auto Di ffon 12-22-2023 Mean Corpuscular HGB Conc 33.6 g/dL Normal 32.0-35.0 [facility] Comment on above: Performed By: #### C BC #### [place] [address] [place] #### FRUC #### [facility] , NRBC% 0.1 /100{WBC} Normal 0-0.5 [facility] Comment on above: Performed By: #### C BC #### [place] [address] [place] #### FRUC #### [facility] , Erythrocyte distribution wid th [Ratio] by Automated countOrdered By: Finn Ortez on 12-22-2023 Erythrocyte distribution width (RBC) [Ratio] 14.2 % Normal 11.9-15.3 [facility] Comment on above: Performed By: #### C BC #### [place] [address] [place] #### FRUC #### [facility] , Erythrocytes [#/volume] in B lood by Automated countOrdered By: Finn Ortez on 12-22-2023 RBC (Bld) [#/Vol] 4.41 10*6/uL Normal 3.60-5.00 [facility] Comment on above: Performed By: #### C BC #### [place] [address] [place] #### FRUC #### [facility] , Fructosamineon 12-22-2023 Fructosamine 216 umol/L Normal 0-[address] [facility] Comment on above: Result Comment: Publ ished reference interval for apparently healthy subjects between age 20 and 60 is 205 - 285 umol/L and in a poorly controlled diabetic population is 228 - 563 umol/L with a mean of 396 umol/L. Performed at: [place] [address] Manager Environmental Services: Chang Quinteros PhD, Phone: [phone] PERFORMED BY: [place] [address] PATHOLOGIST [employer] KNITTER KOMAL COFFMAN M.D. Performed By: #### C BC #### [address] #### FRUC #### [facility] , Fructosamine [Moles/volume] in Serum or PlasmaOrdered By: Finn Ortez on 12-22-2023 Fructosamine [Moles/Vol] 216 umol/L 0-285 [facility] Comment on above: Published reference interval for apparently healthysubjects between age 20 and 60 is 205 - 285 umol/L and in apoorly controlled diabetic population is 228 - 563 umol/Lwith a mean of 396 umol/L.Performed at: [facility] [employer] [id number] Director: Chang Quinteros PhD, Phone: [phone] Hematocrit [Volume Fraction] of Blood by Automated countOrdered By: Finn Ortez on 12-22-2023 Hematocrit (Bld) [Volume fraction] 38.6 % Normal 34.0-46.4 [facility] Comment on above: Performed By: #### C BC #### [place] [address] [place] #### FRUC #### [facility] , Hemoglobin [Mass/volume] in BloodOrdered By: Finn Ortez on 12-22-2023 Hemoglobin (Bld) [Mass/Vol] 13.0 g/dL Normal 11.8-15.4 [facility] Comment on above: Performed By: #### C BC #### [facility] [address] [place] [address] [place] #### FRUC #### [facility] , Leukocytes [#/volume] correc main for nucleated erythrocytes in Blood by Automated counOrdered By: Finn Ortez on 12-22-2023 WBC corrected for nucl RBC Auto (Bld) [#/Vol] 6.8 10*3/uL 3.8-11.6 [facility] Leukocytes [#/volume] in Blo od by Automated countOrdered By: Finn Ortez on 12-22-2023 WBC (Bld) [#/Vol] 6.8 10*3/uL Normal 3.8-11.6 [facility] Comment on above: Performed By: #### C BC #### [place] [address] [place] #### FRUC #### [facility] , Lymphocytes [#/volume] in Bl ood by Automated countOrdered By: Finn Ortez on 12-22-2023 Lymphocytes (Bld) [#/Vol] 1.9 10*3/uL Normal 1.00-4.8 [facility] Comment on above: Performed By: #### C BC #### [facility] [address] [place] [address] [place] #### FRUC #### [facility] , Lymphocytes/100 leukocytes i n Blood by Automated countOrdered By: Finn Ortez on 12-22-2023 Lymphocytes/100 WBC (Bld) 28.4 % Normal . [facility] Comment on above: Performed By: #### C BC #### [facility] [address] [place] [address] [place] #### FRUC #### [facility] , MCH [Entitic mass] by Automa main countOrdered By: Finn Ortez on 12-22-2023 MCH (RBC) [Entitic mass] 29.4 pg Normal 24.7-34.3 [facility] Comment on above: Performed By: #### C BC #### [facility] [address] [place] [address] [place] #### FRUC #### [facility] , MCHC Auto (RBC) [Mass/Vol]Or dered By: Finn Ortez on 12-22-2023 MCHC (RBC) [Mass/Vol] 33.6 g/dL 32.0-35.0 [facility] MCV [Entitic volume] by Auto mated countOrdered By: Finn Ortez on 12-22-2023 MCV (RBC) [Entitic vol] 87.4 fL Normal 80-100 [facility] Comment on above: Performed By: #### C BC #### [facility] [address] [place] [address] [place] #### FRUC #### [facility] , Neutrophils [#/volume] in Bl ood by Automated countOrdered By: Finn Ortez on 12-22-2023 Neutrophils (Bld) [#/Vol] 4.3 10*3/uL Normal 1.8-7.7 [facility] Comment on above: Performed By: #### C BC #### [facility] [address] [place] [address] [place] #### FRUC #### [facility] , Nucleated erythrocytes [Pres ence] in Blood by Automated countOrdered By: Finn Ortez on 12-22-2023 Nucleated RBC Auto Ql (Bld) 0.1 /100{WBC} 0-0.5 [facility] PST Type and Screenon 2023 ABO and Rh group Nom (Bld) Blood group O Rh(D) positive Normal [facility] Comment on above: Order Comment: Date of Surgery: [id number] Result Comment: PERF ORMED BY: [place] [address] PATHOLOGIST [employer] KNITTER KOMAL COFFMAN M.D. Platelet mean volume [Entiti c volume] in Blood by Automated countOrdered By: Finn Ortez on 12-22-2023 Platelet mean volume (Bld) [Entitic vol] 7.4 fL Normal 6.3-10.7 [facility] Comment on above: Performed By: #### C BC #### [facility] [address] [place] [address] [place] #### FRUC #### [facility] , Platelets [#/volume] in Bloo d by Automated countOrdered By: Finn Ortez on 12-22-2023 Platelets (Bld) [#/Vol] 306 10*3/uL Normal 150-450 [facility] Comment on above: Performed By: #### C BC #### [facility] [address] [place] [address] [place] #### FRUC #### [facility] , Basophils Auto (Bld) [#/Vol] on 12-19-2023 Basophils (Bld) [#/Vol] 0.1 10 3/uL 0.0-0.1 [facility] Basophils/100 WBC Auto (Bld) on 12-19-2023 Basophils/100 WBC (Bld) 0.4 % 0.2-2.0 [facility] Eosinophils/100 WBC Auto (Bl d)on 12-19-2023 Eosinophils/100 WBC (Bld) 1.2 % 0.9-7.0 [facility] Erythrocyte distribution wid th Auto (RBC) [Ratio]on 12-19-2023 Erythrocyte distribution width (RBC) [Ratio] 13.7 % 11.0-15.0 [facility] Estimated glomerular filtrat ion rate (GFR) non- Americanon 12-19-2023 GFR/1.73 sq M.predicted among non-blacks MDRD (S/P/Bld) [Vol rate/Area] mL/min/{1.73_m2} >=60 [facility] Globulin Calc (S) [Mass/Vol] on 12-19-2023 Globulin (S) [Mass/Vol] 2.9 g/dL [facility] Hematocrit Auto (Bld) [Volum e fraction]on 12-19-2023 Hematocrit (Bld) [Volume fraction] 40.6 % 36.0-48.0 [facility] Hemoglobin [Mass/volume] in Bloodon 12-19-2023 Hemoglobin (Bld) [Mass/Vol] 13.3 g/dL 12.0-16.0 [facility] INR in Platelet poor plasma by Coagulation assayon 12-19-2023 INR Coag (PPP) [Relative time] 0.95 {INR} [facility] Comment on above: DESIRED INR:2.0-3.0 CONDITIONS NOT LISTED BELOW2.5-3.5 FOR PROSTHETIC HEART VALVE REPLACEMENT2.5-3.5 RECURRENT THROMBOSIS Laboratory - Chemistry and C hemistry - challengeon 12-19-2023 Bilirubin Ql (U) Negative NEGATIVE [facility] Glucose (U) [Mass/Vol] Negative NEGATIVE [facility] Ketones Ql (U) 40 mg/dL Abnormal NEGATIVE [facility] pH (U) 5.5 [pH] 5.0-9.0 [facility] Specific gravity (U) [Rel density] >=1.030 Abnormal 1.005-1.02 5 [facility] Urobilinogen Qn (U) 0.2 {Sajan'U}/dL 0.2-1.0 [facility] Albumin [Mass/Vol] 4.0 g/dL 3.4-5.0 [facility] ALP [Catalytic activity/Vol] 90 U/L 46-116 [facility] ALT [Catalytic activity/Vol] 34 U/L 14-59 [facility] AST [Catalytic activity/Vol] 27 U/L 15-37 [facility] Bilirubin [Mass/Vol] 0.6 mg/dL 0.2-1.0 [facility] Calcium [Mass/Vol] 9.2 mg/dL 8.5-10.1 [facility] Chloride [Moles/Vol] 104 mmol/L 98-107 [facility] CO2 [Moles/Vol] 28.2 mmol/L 21.0-32.0 [facility] Creatinine [Mass/Vol] 0.79 mg/dL 0.55-1.02 [facility] GFR/1.73 sq M.predicted MDRD (S/P/Bld) [Vol rate/Area] mL/min/{1.73_m2} >=60 [facility] Glucose [Mass/Vol] 93 mg/dL 74-106 [facility] Potassium [Moles/Vol] 3.6 mmol/L 3.5-5.1 [facility] Protein [Mass/Vol] 6.9 g/dL 6.4-8.2 [facility] Sodium [Moles/Vol] 142 mmol/L 136-145 [facility] Urea nitrogen [Mass/Vol] 14.0 mg/dL 7.0-18.0 [facility] Urea nitrogen/Creatinine [Mass ratio] 17.7 mg/mg [facility] Laboratory - Hematology and Cell countson 12-19-2023 Immature granulocytes/100 WBC (Bld) 0.3 % 0.0-0.5 [facility] Laboratory - Specimen inform ationon 12-19-2023 Appearance (U) SL CLOUDY CLEAR [facility] Color (U) YELLOW YELLOW [facility] Laboratory - Urinalysison Leukocyte esterase Test strip Ql (U) Negative NEGATIVE [facility] Mucus Ql (Urine sed) TRACE Abnormal NONE SEEN [facility] Nitrite Ql (U) Negative NEGATIVE [facility] Protein Ql (U) TRACE mg/dL NEG/TRACE [facility] Leukocytes [#/volume] correc main for nucleated erythrocytes in Blood by Automated counon 12-19-2023 WBC corrected for nucl RBC Auto (Bld) [#/Vol] 13.9 10 3/uL High 4.0-11.0 [facility] Lymphocytes Auto (Bld) [#/Vo l]on 12-19-2023 Lymphocytes (Bld) [#/Vol] 2.3 10 3/uL 1.2-3.8 [facility] Lymphocytes/100 WBC Auto (Bl d)on 12-19-2023 Lymphocytes/100 WBC (Bld) 16.7 % Low 20.5-60.0 [facility] MCH Auto (RBC) [Entitic mass ]on 12-19-2023 MCH (RBC) [Entitic mass] 29.2 pg 26.7-34.0 [facility] MCHC Auto (RBC) [Mass/Vol]on 12-19-2023 MCHC (RBC) [Mass/Vol] 32.8 g/dL 29.9-35.2 [facility] MCV Auto (RBC) [Entitic vol] on 12-19-2023 MCV (RBC) [Entitic vol] 89.2 fL 81.0-99.0 [facility] Monocytes Auto (Bld) [#/Vol] on 12-19-2023 Monocytes (Bld) [#/Vol] 1.2 10 3/uL High 0.3-0.8 [facility] Monocytes/100 WBC Auto (Bld) on 12-19-2023 Monocytes/100 WBC (Bld) 8.8 % 1.7-12.0 [facility] Neutrophils Auto (Bld) [#/Vo l]on 12-19-2023 Neutrophils (Bld) [#/Vol] 10.1 10 3/uL High 1.4-6.5 [facility] Neutrophils/100 WBC Auto (Bl d)on 12-19-2023 Neutrophils/100 WBC (Bld) 72.6 % 43.0-75.0 [facility] No Panel Informationon 12-18 Urine Bacteria MODERATE #/HPF Abnormal NONE SEEN [facility] Urine Calcium Oxalate Crystals RARE [facility] Urine Culture Reflexed YES [facility] Urine Microscopic Review YES [facility] Urine Occult Blood LARGE Abnormal NEGATIVE [facility] Urine Other Casts SEEN #/LPF Abnormal NONE SEEN [facility] Urine Other Crystals Seen #/HPF Abnormal None Seen [facility] Urine RBC 75-100 #/HPF Abnormal 0-2 [facility] Urine Squamous Epithelial Cells FEW #/LPF Abnormal NONE/RARE [facility] Urine WBC 2-5 #/HPF Abnormal NONE SEEN [facility] Eosinophils # (Auto) 0.2 10 3/uL 0.0-0.7 [facility] Immature Granulocyte # (Auto) 0.04 10 3/uL High 0.00-0.03 [facility] Troponin I High Sensitivity 5.1 pg/mL 4.0-51.3 [facility] Comment on above: CUT-OFF POINTS HAVE BEEN ESTABLISHED BASED ON THE FOURTHUNIVERSAL DEFINITION OF MYOCARDIAL INFARCTION. THE UPPERREFERENCE LIMIT (URL) OF TROPONIN, DEFINED THE 99THPERCENTILE OF cTnI DISTRIBUTION IN A REFERENCE POPULATION,HAS BEEN CONFIRMED THE DECISION THRESHOLD FOR MIDIAGNOSIS.99TH PERCENTILE = 51.4 PG/MLNOTE: HIGH-SENSITIVITY TROPONIN ASSAY IS NOT INTENDED TO BEUSED IN ISOLATION BUT SHOULD BE INTERPRETED IN CONJUNCTIONWITH OTHER DIAGNOSTIC AND CLINICAL INFORMATION. Platelet mean volume Auto (B ld) [Entitic vol]on 12-19-2023 Platelet mean volume (Bld) [Entitic vol] 9.0 fL Low 9.5-13.5 [facility] Platelets Auto (Bld) [#/Vol] on 12-19-2023 Platelets (Bld) [#/Vol] 300 10 3/uL 150-450 [facility] Prothrombin time (PT)on 11-27 PT Coag (PPP) [Time] 10.1 s 9.0-11.6 [facility] RBC Auto (Bld) [#/Vol]on RBC (Bld) [#/Vol] 4.55 10 6/uL 4.20-5.40 [facility] Serum or plasma albumin/glob ulin mass ratioon 12-19-2023 Albumin/Globulin [Mass ratio] 1.4 {ratio} [facility] Serum or plasma anion gap de terminationon 12-19-2023 Anion gap [Moles/Vol] 13.4 mmol/L [facility] Yeast detection in urine sed iment by light microscopyon 12-19-2023 Yeast LM Ql (Urine sed) SEEN Abnormal NONE SEEN [facility] Basophils Auto (Bld) [#/Vol] on 12-06-2023 Basophils (Bld) [#/Vol] 0.1 10 3/uL 0.0-0.1 [facility] Basophils/100 WBC Auto (Bld) on 12-06-2023 Basophils/100 WBC (Bld) 1.0 % 0.2-2.0 [facility] Cholesterol in LDL Calc [Mas s/Vol]on 12-06-2023 Cholesterol in LDL [Mass/Vol] 105.0 mg/dL [facility] Comment on above: <100 mg/dl [id number] 0-129 mg/dl NEAR OR ABOVE [id number] mg/dl BORDERLINE [id number] mg/dl HIGH>190 mg/dl VERY HIGH Cholesterol in VLDL Calc [Ma ss/Vol]on 12-06-2023 Cholesterol in VLDL [Mass/Vol] 21.0 mg/dL [facility] Eosinophils/100 WBC Auto (Bl d)on 12-06-2023 Eosinophils/100 WBC (Bld) 3.7 % 0.9-7.0 [facility] Erythrocyte distribution wid th Auto (RBC) [Ratio]on 12-06-2023 Erythrocyte distribution width (RBC) [Ratio] 13.8 % 11.0-15.0 [facility] Estimated glomerular filtrat ion rate (GFR) non- Americanon 12-06-2023 GFR/1.73 sq M.predicted among non-blacks MDRD (S/P/Bld) [Vol rate/Area] mL/min/{1.73_m2} >=60 [facility] Globulin Calc (S) [Mass/Vol] on 12-06-2023 Globulin (S) [Mass/Vol] 3.0 g/dL [facility] Hematocrit Auto (Bld) [Volum e fraction]on 12-06-2023 Hematocrit (Bld) [Volume fraction] 41.8 % 36.0-48.0 [facility] Hemoglobin [Mass/volume] in Bloodon 12-06-2023 Hemoglobin (Bld) [Mass/Vol] 13.3 g/dL 12.0-16.0 [facility] Laboratory - Chemistry and C hemistry - challengeon 12-06-2023 Albumin [Mass/Vol] 3.8 g/dL 3.4-5.0 [facility] ALP [Catalytic activity/Vol] 110 U/L 46-116 [facility] ALT [Catalytic activity/Vol] 40 U/L 14-59 [facility] AST [Catalytic activity/Vol] 32 U/L 15-37 [facility] Bilirubin [Mass/Vol] 0.4 mg/dL 0.2-1.0 [facility] Calcium [Mass/Vol] 8.8 mg/dL 8.5-10.1 [facility] Chloride [Moles/Vol] 105 mmol/L 98-107 [facility] Cholesterol [Mass/Vol] 189 mg/dL <=200 [facility] Cholesterol in HDL [Mass/Vol] 63 mg/dL High 40-60 [facility] Comment on above: > or =60 mg/dl - LOW CARDIOVASCULAR RISK<40 mg/dl - HIGH CARDIOVASCULAR RISK CO2 [Moles/Vol] 32.2 mmol/L High 21.0-32.0 [facility] Creatinine [Mass/Vol] 0.66 mg/dL 0.55-1.02 [facility] GFR/1.73 sq M.predicted MDRD (S/P/Bld) [Vol rate/Area] mL/min/{1.73_m2} >=60 [facility] Glucose [Mass/Vol] 91 mg/dL 74-106 [facility] Potassium [Moles/Vol] 4.1 mmol/L 3.5-5.1 [facility] Protein [Mass/Vol] 6.8 g/dL 6.4-8.2 [facility] Sodium [Moles/Vol] 143 mmol/L 136-145 [facility] Triglyceride [Mass/Vol] 105 mg/dL <=150 [facility] TSH Qn 2.954 m[IU]/L 0.358-3.74 0 [facility] Urea nitrogen [Mass/Vol] 11.0 mg/dL 7.0-18.0 [facility] Urea nitrogen/Creatinine [Mass ratio] 16.7 mg/mg [facility] Laboratory - Hematology and Cell countson 12-06-2023 Immature granulocytes/100 WBC (Bld) 0.3 % 0.0-0.5 [facility] Leukocytes [#/volume] correc main for nucleated erythrocytes in Blood by Automated counon 12-06-2023 WBC corrected for nucl RBC Auto (Bld) [#/Vol] 6.8 10 3/uL 4.0-11.0 [facility] Lymphocytes Auto (Bld) [#/Vo l]on 12-06-2023 Lymphocytes (Bld) [#/Vol] 1.8 10 3/uL 1.2-3.8 [facility] Lymphocytes/100 WBC Auto (Bl d)on 12-06-2023 Lymphocytes/100 WBC (Bld) 26.8 % 20.5-60.0 [facility] MCH Auto (RBC) [Entitic mass ]on 12-06-2023 MCH (RBC) [Entitic mass] 29.2 pg 26.7-34.0 [facility] MCHC Auto (RBC) [Mass/Vol]on 12-06-2023 MCHC (RBC) [Mass/Vol] 31.8 g/dL 29.9-35.2 [facility] MCV Auto (RBC) [Entitic vol] on 12-06-2023 MCV (RBC) [Entitic vol] 91.7 fL 81.0-99.0 [facility] Monocytes Auto (Bld) [#/Vol] on 12-06-2023 Monocytes (Bld) [#/Vol] 0.5 10 3/uL 0.3-0.8 [facility] Monocytes/100 WBC Auto (Bld) on 12-06-2023 Monocytes/100 WBC (Bld) 7.9 % 1.7-12.0 [facility] Neutrophils Auto (Bld) [#/Vo l]on 12-06-2023 Neutrophils (Bld) [#/Vol] 4.1 10 3/uL 1.4-6.5 [facility] Neutrophils/100 WBC Auto (Bl d)on 12-06-2023 Neutrophils/100 WBC (Bld) 60.3 % 43.0-75.0 [facility] No Panel Informationon 12-05 Eosinophils # (Auto) 0.3 10 3/uL 0.0-0.7 [facility] Immature Granulocyte # (Auto) 0.02 10 3/uL 0.00-0.03 [facility] Platelet mean volume Auto (B ld) [Entitic vol]on 12-06-2023 Platelet mean volume (Bld) [Entitic vol] 8.7 fL Low 9.5-13.5 [facility] Platelets Auto (Bld) [#/Vol] on 12-06-2023 Platelets (Bld) [#/Vol] 291 10 3/uL 150-450 [facility] RBC Auto (Bld) [#/Vol]on RBC (Bld) [#/Vol] 4.56 10 6/uL 4.20-5.40 [facility] Serum or plasma albumin/glob ulin mass ratioon 12-06-2023 Albumin/Globulin [Mass ratio] 1.3 {ratio} [facility] Serum or plasma anion gap de terminationon 12-06-2023 Anion gap [Moles/Vol] 9.9 mmol/L [facility] Serum or plasma total choles terol/high density lipoprotein (HDL) cholesterol mass amador 12-06-2023 Cholesterol.total/C holesterol in HDL [Mass ratio] 3.0 {ratio} [facility] Comment on above: 3.3 - 4.4 LOW RISK4. 4 - 7.1 AVERAGE RISK7.1 - 11.0 MODERATE RISK>11.0 HIGH RISK A1C with Estimated Average G luon 11-19-2023 Glucose [Mass/Vol] 123 mg/dL Normal [facility] Comment on above: Result Comment: PERF ORMED BY: [facility] [address] [place] [address] PATHOLOGIST [employer] KNITTER KOMAL COFFMAN M.D. Performed By: #### V [id number], HGB, ALB, CUMRSA, A1C WT eA ####[facility]#### NICOTINE ####[facility] , Albumin Levelon 11-19-2023 Albumin [Mass/Vol] 4.6 g/dL Normal 3.5-5.7 [facility] Comment on above: Performed By: #### V [id number], HGB, ALB, CUMRSA, A1C WTH eA #### [facility] [address] #### NICOTINE #### [facility] , Albumin [Mass/volume] in Ser um or Plasma by Bromocresol green (BCG) dye binding methoOrdered By: Finn Ortez on 11-19-2023 Albumin BCG dye [Mass/Vol] 4.6 g/dL 3.5-5.7 [facility] Cotinine [Mass/volume] in Se rum or PlasmaOrdered By: Finn Ortez on 11-19-2023 Cotinine [Mass/Vol] <1.0 ng/mL . [facility] Comment on above: This test was develo ped and its performance characteristicsdetermined by [employer]. It has not been cleared orapproved by the Food and Drug Administration.Cotinine levels greater than 20.0 are consistent with theuse of tobacco or tobacco cessation products.Performed at: [address] [id number] Director: Vinh Almeida MD, Phone: [phone] Glucose mean value [Mass/vol ume] in Blood Estimated from glycated hemoglobinOrdered By: Finn Ortez on 11-19-2023 Average glucose Estimated from glycated hemoglobin (Bld) [Mass/Vol] 123 mg/dL [facility] Hemoglobin A1c percentageOrd ered By: Finn Ortez on 11-19-2023 HbA1c (Bld) [Mass fraction] 5.9 % High 4.3-5.6 [facility] Comment on above: Increased risk for d iabetes: 5.7 - 6.4diabetes: >6.4glycemic control for adults with diabetes: <7.0 Result Comment: Incr eased risk for diabetes: 5.7 - 6.4 diabetes: >6.4 glycemic control for adults with diabetes: <7.0 Performed By: #### V [id number], HGB, ALB, CUMRSA, [facility]C [facility] ####[facility] [address]#### NICOTINE ####[facility] , Hemoglobin [Mass/volume] in BloodOrdered By: Finn Ortez on 11-19-2023 Hemoglobin (Bld) [Mass/Vol] 13.6 g/dL Normal 11.8-15.4 [facility] Comment on above: Result Comment: PERF ORMED BY: [facility] [address] [place] [address] PATHOLOGIST [employer] KNITTER KOMAL COFFMAN M.D. Performed By: #### V [id number], HGB, ALB, CUMRSA, A1C WT eA #### [facility] [address] [place] [address] [place] #### NICOTINE #### [facility] , MRSA Cultureon 11-19-2023 MRSA Culture MRSA Culture Results No MRSA Isolated 2 Days PERFORMED BY: [place] [address] PATHOLOGIST [employer] KNITTER KOMAL COFFMAN M.D. Normal [facility] Comment on above: Performed By: #### V [id number], HGB, ALB, CUMRSA, A1C WTH eA ####[facility] [place] [address] [place]#### NICOTINE ####[facility] , Nicotine [Mass/volume] in Se rum or PlasmaOrdered By: Finn Ortez on 11-19-2023 Nicotine [Mass/Vol] <1.0 ng/mL . [facility] Comment on above: This test was develo ped and its performance characteristicsdetermined by [facility]. It has not been cleared orapproved by the Food and Drug Administration.Nicotine levels greater than 2.0 are consistent with theuse of tobacco or tobacco cessation products. Nicotine/Cotinine Bloodon Cotinine, Blood <1.0 Normal . [facility] Comment on above: Result Comment: This test was developed and its performance characteristics determined by [facility]. It has not been cleared or approved by the Food and Drug Administration. Cotinine levels greater than 20.0 are consistent with the use of tobacco or tobacco cessation products. Performed at: [address] [id number] Manager Environmental Services: Vinh Almeida MD, Phone: [phone] PERFORMED BY: [place] [address] PATHOLOGIST [employer] KNITTER KOMAL COFFMAN M.D. Performed By: #### V [id number], HGB, ALB, CUMRSA, A1C WTH eA ####[facility] [place] [address] [facility]#### NICOTINE ####[facility] , Nicotine, Blood <1.0 Normal . [facility] Comment on above: Result Comment: This test was developed and its performance characteristics determined by [facility]. It has not been cleared or approved by the Food and Drug Administration. Nicotine levels greater than 2.0 are consistent with the use of tobacco or tobacco cessation products. Performed By: #### V [id number], HGB, ALB, CUMRSA, A1C WT eA ####[place] [address] [place] [address] [place]#### NICOTINE ####[facility] , Vitamin D 25 Hydroxy Totalon 11-19-2023 Vitamin D 25 Hydroxy Total 51.6 ng/mL Normal 30-100 [facility] Comment on above: Result Comment: EDIE MIN D STATUS 25(OH)VITAMIN D RANGE (ng/mL) Deficient <20 Insufficient 20 to <30 Sufficient 30 to 100 Reference: Giovanny MF,Radha NC, Archana-Andrews RAMAN, et al. Evaluation,treatment, and prevention of vitamin D deficiency; an Endocrine Society clinical practice guideline. JCEM. 2010; 96(7):1911-30. PERFORMED BY: [facility] [address] [place] [id number] PATHOLOGIST [employer] KNITTER KOMAL COFFMAN M.D. Performed By: #### V [id number], HGB, ALB, CUMRSA, A1C WTH eA ####[place] [id number] [place] [address] [place]#### NICOTINE ####[facility] , Vitamin D+Metabolites [Mass/ volume] in Serum or PlasmaOrdered By: Finn Ortez on 11-19-2023 Vitamin D+Metabolites [Mass/Vol] 51.6 ng/mL 30-100 [facility] Comment on above: VITAMIN D STATUS 25( [place])VITAMIN D RANGE (ng/mL) Deficient <20 Insufficient 20 to <30Sufficient 30 to 100Reference: Giovanny MF,Radha NC, Gisela RAMAN, et al. Evaluation,treatment, and prevention of vitamin D deficiency; an Endocrine Society clinical practice guideline. JCEM. 2010; 96(7):1911-30. Wound methicillin resistant Staphylococcus aureus (MRSA) cultureOrdered By: Finn Ortez on 11-19-2023 MRSA isol Org specific cx Ql (Unsp spec) [facility] Bilirubin Test strip Ql (U)O rdered By: Karen Cardoso on 09-15-2023 Bilirubin Ql (U) Negative Negative [facility] Color of Urine by AutoOrdere d By: Karen Cardoso on 09-15-2023 Color (U) Yellow Normal Yellow [facility] Comment on above: Order Comment: Name Collection Type:: Collection Method Unknown Performed By: #### U A, CUU ####[facility] [id number] [place] [id number] [facility] Ketones Auto test strip (U) [Mass/Vol]Ordered By: Karen Cardoso on 09-15-2023 Ketones (U) [Mass/Vol] Trace High Negative [facility] Nitrite Test strip Ql (U)Ord ered By: Karen Cardoso on 09-15-2023 Nitrite Ql (U) Negative Negative [facility] Protein Auto test strip (U) [Mass/Vol]Ordered By: Karen Cardoso on 09-15-2023 Protein (U) [Mass/Vol] Negative Negative [facility] Specific gravity Auto test s trip (U) [Rel density]Ordered By: Karen Cardoso on 09-15-2023 Specific gravity (U) [Rel density] 1.007 1.001-1.03 0 [facility] Urinalysison 09-15-2023 Appearance (U) Clear Normal Clear [facility] Comment on above: Order Comment: Name Collection Type:: Collection Method Unknown Performed By: #### U A, CUU ####[facility] [address] [place] [address] [facility] Bilirubin,Urine Negative Normal Negative [facility] Comment on above: Order Comment: Name Collection Type:: Collection Method Unknown Performed By: #### U A, CUU ####[address] [place] [address] [place] Glucose Ql (U) Normal Normal Normal [facility] Comment on above: Order Comment: Name Collection Type:: Collection Method Unknown Performed By: #### U A, CUU ####[address] [place] [address] [place] Ketones Ql (U) Trace High Negative [facility] Comment on above: Order Comment: Name Collection Type:: Collection Method Unknown Performed By: #### U A, CUU ####[address] [address] [facility] Leukocyte esterase Test strip Ql (U) Negative Normal Negative [facility] Comment on above: Order Comment: Name Collection Type:: Collection Method Unknown Performed By: #### U A, CUU ####[address] [address] [facility] Nitrite,Urine Negative Normal Negative [facility] Comment on above: Order Comment: Name Collection Type:: Collection Method Unknown Performed By: #### U A, CUU ####[address] [address] [place] Occult Blood,Urine 2+ High Negative [facility] Comment on above: Order Comment: Name Collection Type:: Collection Method Unknown Result Comment: PERF ORMED BY: [facility] [address] [place] [address] PATHOLOGIST [employer]TER KOMAL COFFMAN M.D. Performed By: #### U A, CUU ####[address] [place] [address] [facility] Protein,Urine Negative Normal Negative [facility] Comment on above: Order Comment: Name Collection Type:: Collection Method Unknown Performed By: #### U A, CUU ####[address] [place] [address] [place] Specificy [place],Urine 1.007 Normal 1.001-1.03 0 [facility] Comment on above: Order Comment: Name Collection Type:: Collection Method Unknown Performed By: #### U A, CUU ####[facility] [address] [place] [address] [facility] Urobilinogen,Urine Normal Normal Normal [facility] Comment on above: Order Comment: Name Collection Type:: Collection Method Unknown Performed By: #### U A, CUU ####[facility] [place] [address] [facility] Urine Cultureon 09-15-2023 Bacteria identified Cx Nom (U) 50,000 colonies/ml mixed bacterial skin contaminants 2 Days PERFORMED BY: [facility] [address] [place] [place] [id number] PATHOLOGIST [employer] KNITTER KOMAL COFFMAN M.D. Normal [facility] Comment on above: Performed By: #### U A, CUU ####[address] [place] [address] [facility] Urine clarity by refractomet ry automatedOrdered By: Karen Cardoso on 09-15-2023 Clarity Refractometry automated (U) Clear Clear [facility] Urine culture routineOrdered By: Karen Cardoso on 09-15-2023 Bacteria identified Cx Nom (U) 2 Days [facility] Urine glucose measurement by automated test strip (mass/volume)Ordered By: Karen Cardoso on 09-15-2023 Glucose Auto test strip (U) [Mass/Vol] Normal mg/dL Normal [facility] Urine hemoglobin detection b y automated test stripOrdered By: Karen Cardoso on 09-15-2023 Hemoglobin Auto test strip Ql (U) 2+ High Negative [facility] Urine leukocyte esterase det ection by automated test stripOrdered By: Karen Cardoso on 09-15-2023 Leukocyte esterase Auto test strip Ql (U) Negative Negative [facility] Urine pH measurement by auto mated test stripOrdered By: Karen Cardoso on 09-15-2023 pH (U) 5.5 [pH] Normal 5.0-9.0 [facility] Comment on above: Order Comment: Name Collection Type:: Collection Method Unknown Performed By: #### U A, CUU ####[address] [place] [address] [facility] Urobilinogen Auto test strip (U) [Mass/Vol]Ordered By: Karen Cardoso on 09-15-2023 Urobilinogen (U) [Mass/Vol] Normal mg/dL Normal [facility] BI MAMMOGRAM SCREENING TOMOS YNTHESIS BILATERALon 07-24-2023 [...] IS VERY IMPORTANT TO YOUR HEALTH. THE [place] CANCER SOCIETY GUIDELINES RECOMMEND THAT WOMEN 40 [...] spot compression prn DEXA BONE DENSITYon 07-24-19 24 DEXA BONE DENSITY Correlation is made with the previous DEXA examination of June 11, 2021. FINDINGS: Right Hip bone density obtained with a [employer] whole body system: Region BMD Young-Adult Age-Matched [...] Left Forearm bone density obtained with a [employer] whole body system: Region BMD Young-Adult Age-Matched [...] AP Spine bone density obtained with a [employer] whole body system: Region BMD Young-Adult Age-Matched [...] Basophils (Bld) [#/Vol] 0.0 10 3/uL 0.0-0.1 [facility] Basophils/100 WBC Auto (Bld) on 06-23-2023 Basophils/100 WBC (Bld) 0.4 % 0.2-2.0 [facility] Cholesterol in LDL Calc [Mas s/Vol]on 06-23-2023 Cholesterol in LDL [Mass/Vol] 104.0 mg/dL [facility] Comment on above: <100 mg/dl [id number] 0-129 mg/dl NEAR OR ABOVE [id number] mg/dl BORDERLINE [id number] mg/dl HIGH>190 mg/dl VERY HIGH Cholesterol in VLDL Calc [Ma ss/Vol]on 06-23-2023 Cholesterol in VLDL [Mass/Vol] 19.8 mg/dL [facility] Eosinophils/100 WBC Auto (Bl d)on 06-23-2023 Eosinophils/100 WBC (Bld) 1.8 % 0.9-7.0 [facility] Erythrocyte distribution wid th Auto (RBC) [Ratio]on 06-23-2023 Erythrocyte distribution width (RBC) [Ratio] 14.1 % 11.0-15.0 [facility] Estimated glomerular filtrat ion rate (GFR) non- Americanon 06-23-2023 GFR/1.73 sq M.predicted among non-blacks MDRD (S/P/Bld) [Vol rate/Area] mL/min/{1.73_m2} >=60 [facility] Globulin Calc (S) [Mass/Vol] on 06-23-2023 Globulin (S) [Mass/Vol] 3.6 g/dL [facility] Glucose mean value [Mass/vol ume] in Blood Estimated from glycated hemoglobinon 06-23-2023 Average glucose Estimated from glycated hemoglobin (Bld) [Mass/Vol] 114 mg/dL [facility] Hematocrit Auto (Bld) [Volum e fraction]on 06-23-2023 Hematocrit (Bld) [Volume fraction] 44.3 % 36.0-48.0 [facility] Hemoglobin [Mass/volume] in Bloodon 06-23-2023 Hemoglobin (Bld) [Mass/Vol] 14.0 g/dL 12.0-16.0 [facility] Laboratory - Chemistry and C hemistry - challengeon 06-23-2023 Albumin [Mass/Vol] 3.7 g/dL 3.4-5.0 [facility] ALP [Catalytic activity/Vol] 88 U/L 46-116 [facility] ALT [Catalytic activity/Vol] 29 U/L 14-59 [facility] AST [Catalytic activity/Vol] 18 U/L 15-37 [facility] Bilirubin [Mass/Vol] 0.6 mg/dL 0.2-1.0 [facility] Calcium [Mass/Vol] 9.1 mg/dL 8.5-10.1 [facility] Chloride [Moles/Vol] 104 mmol/L 98-107 [facility] Cholesterol [Mass/Vol] 196 mg/dL <=200 [facility] Cholesterol in HDL [Mass/Vol] 73 mg/dL 40-60 [facility] Comment on above: > or =60 mg/dl - LOW CARDIOVASCULAR RISK<40 mg/dl - HIGH CARDIOVASCULAR RISK CO2 [Moles/Vol] 30.4 mmol/L 21.0-32.0 [facility] Creatinine [Mass/Vol] 0.67 mg/dL 0.55-1.02 [facility] GFR/1.73 sq M.predicted MDRD (S/P/Bld) [Vol rate/Area] mL/min/{1.73_m2} >=60 [facility] Glucose [Mass/Vol] 97 mg/dL 74-106 [facility] Potassium [Moles/Vol] 3.8 mmol/L 3.5-5.1 [facility] Protein [Mass/Vol] 7.3 g/dL 6.4-8.2 [facility] Sodium [Moles/Vol] 145 mmol/L 136-145 [facility] Triglyceride [Mass/Vol] 99 mg/dL <=150 [facility] Urea nitrogen [Mass/Vol] 13.0 mg/dL 7.0-18.0 [facility] Urea nitrogen/Creatinine [Mass ratio] 19.4 mg/mg [facility] Laboratory - Hematology and Cell countson 06-23-2023 HbA1c (Bld) [Mass fraction] 5.6 % 4.5-6.2 [facility] Comment on above: ADA RECOMMENDED LIMI T 4.0 - 6.0ADA THERAPEUTIC TARGET < 7.0ACTION SUGGESTED> 7.0 Immature granulocytes/100 WBC (Bld) 0.8 % 0.0-0.5 [facility] Leukocytes [#/volume] correc main for nucleated erythrocytes in Blood by Automated counon 06-23-2023 WBC corrected for nucl RBC Auto (Bld) [#/Vol] 9.6 10 3/uL 4.0-11.0 [facility] Lymphocytes Auto (Bld) [#/Vo l]on 06-23-2023 Lymphocytes (Bld) [#/Vol] 1.8 10 3/uL 1.2-3.8 [facility] Lymphocytes/100 WBC Auto (Bl d)on 06-23-2023 Lymphocytes/100 WBC (Bld) 18.7 % 20.5-60.0 [facility] MCH Auto (RBC) [Entitic mass ]on 06-23-2023 MCH (RBC) [Entitic mass] 28.4 pg 26.7-34.0 [facility] MCHC Auto (RBC) [Mass/Vol]on 06-23-2023 MCHC (RBC) [Mass/Vol] 31.6 g/dL 29.9-35.2 [facility] MCV Auto (RBC) [Entitic vol] on 06-23-2023 MCV (RBC) [Entitic vol] 89.9 fL 81.0-99.0 [facility] Monocytes Auto (Bld) [#/Vol] on 06-23-2023 Monocytes (Bld) [#/Vol] 0.8 10 3/uL 0.3-0.8 [facility] Monocytes/100 WBC Auto (Bld) on 06-23-2023 Monocytes/100 WBC (Bld) 7.9 % 1.7-12.0 [facility] Neutrophils Auto (Bld) [#/Vo l]on 06-23-2023 Neutrophils (Bld) [#/Vol] 6.8 10 3/uL 1.4-6.5 [facility] Neutrophils/100 WBC Auto (Bl d)on 06-23-2023 Neutrophils/100 WBC (Bld) 70.4 % 43.0-75.0 [facility] No Panel Informationon 06-23 Eosinophils # (Auto) 0.2 10 3/uL 0.0-0.7 [facility] Immature Granulocyte # (Auto) 0.08 10 3/uL 0.00-0.03 [facility] Platelet mean volume Auto (B ld) [Entitic vol]on 06-23-2023 Platelet mean volume (Bld) [Entitic vol] 8.6 fL 9.5-13.5 [facility] Platelets Auto (Bld) [#/Vol] on 06-23-2023 Platelets (Bld) [#/Vol] 362 10 3/uL 150-450 [facility] RBC Auto (Bld) [#/Vol]on RBC (Bld) [#/Vol] 4.93 10 6/uL 4.20-5.40 [facility] Serum or plasma albumin/glob ulin mass ratioon 06-23-2023 Albumin/Globulin [Mass ratio] 1.0 {ratio} [facility] Serum or plasma anion gap de terminationon 06-23-2023 Anion gap [Moles/Vol] 14.4 mmol/L [facility] Serum or plasma total choles terol/high density lipoprotein (HDL) cholesterol mass amador 06-23-2023 Cholesterol.total/C holesterol in HDL [Mass ratio] 2.7 {ratio} [facility] Comment on above: 3.3 - 4.4 LOW RISK4. 4 - 7.1 AVERAGE RISK7.1 - 11.0 MODERATE RISK>11.0 HIGH RISK XR hip RT min 2V(w/wo pelvis )*on 06-13-2023 XR hip RT min 2V(w/wo pelvis)* [facility] [address] XRay Report Signed Patient: Antonino Torres MR#: [id number] : 1955 Acct:[id number] Age/Sex: 67 / F ADM Date: 06/13/23 [place] [facility] [place] Type: [facility] CLI Attending Dr: Finn Ortez II, MD Copies [...] Silvina Rolon M.D.06/13/2023 12:57 PM Dictation Location: [place] [address] Transcribed By: [facility] 06/13/23 1257 Dictated By: Silvina Rolon MD 06/13/23 1255 Signed By: 06/13/23 1257 Normal [facility] CT CSPINE WO CONon 3 CT CSPINE [...] DONYA BIGGS Date: 2022-08-27 17:05 Normal [facility] CT HEAD WO CONon 08-27-2022 CT [...] ALMA FRIEDMAN Date: 2022-08-27 17:02 Normal [facility] XR HIP LT 2 3V W [...] KAREN CANO Date: 2022-08-27 17:40 Normal [facility] XR hip RT min 2V(w/wo pelvis )*on 07-12-2022 XR hip RT min 2V(w/wo pelvis)* [facility] [employer] Other XR hip RT min 2V(w/wo pelvis)* [facility] [employer] Other XR hip RT min 2V(w/wo pelvis)* [address] [place] [address] [employer] Other XR hip RT min 2V(w/wo pelvis)* SIRENA Patel [address] [employer] Other XR hip RT min 2V(w/wo pelvis)* XRay Report [employer] Other XR hip RT min 2V(w/wo pelvis)* Signed [employer] Other XR hip RT min 2V(w/wo pelvis)* Patient: Antonino Torres MR#: [id number] [employer] Other XR hip RT min 2V(w/wo pelvis)* 0540 [employer] Other XR hip RT min 2V(w/wo pelvis)* : 1955 Acct:[id number] [employer] Other XR hip RT min 2V(w/wo pelvis)* Age/Sex: 66 / F ADM Date: 07/12/22 [employer] Other XR hip RT min 2V(w/wo pelvis)* [place] [facility] [place] Type: [facility] [employer] Other XR hip RT min 2V(w/wo pelvis)* Attending Dr: Finn Ortez II, MD [employer] Other XR hip RT min 2V(w/wo pelvis)* Copies to: Finn Ortez MD [employer] Other XR hip RT min 2V(w/wo pelvis)* Ordering Provider: Finn Ortez MD [employer] Other XR hip RT min 2V(w/wo pelvis)* Date of Service: 07/12/22 [employer] Other XR hip RT min 2V(w/wo pelvis)* XR/XR hip RT min 2V(w/wo pelvis)*: Right hip pain [employer] Other XR hip RT min 2V(w/wo pelvis)* XR hip RT min 2V(w/wo pelvis)* 07/12/2022 10:08 AM [employer] Other XR hip RT min 2V(w/wo pelvis)* SIGNS AND SYMPTOMS: Right hip pain, right inguinal pain [employer] Other XR hip RT min 2V(w/wo pelvis)* PROTOCOL: Frontal radiograph the pelvis with crosstable lateral view of the right hip [employer] Other XR hip RT min 2V(w/wo pelvis)* COMPARISON: None [employer] Other XR hip RT min 2V(w/wo pelvis)* FINDINGS: [employer] Other XR hip RT min 2V(w/wo pelvis)* 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 There is no hardware complication or malalignment. [employer] Other XR hip RT min 2V(w/wo pelvis)* The bony ring of the pelvis is grossly intact. Degenerative changes are noted in the lumbar spine [employer] Other XR hip RT min 2V(w/wo pelvis)* and sacroiliac joints. There is enthesophyte formation at the greater trochanters and iliac wings. [employer] Other XR hip RT min 2V(w/wo pelvis)* There is mild narrowing of the right hip joint space. [employer] Other XR hip RT min 2V(w/wo pelvis)* XR/XR hip RT min 2V(w/wo pelvis)* [employer] Other XR hip RT min 2V(w/wo pelvis)* IMPRESSION: [employer] Other XR hip RT min 2V(w/wo pelvis)* No fracture or dislocation. Nor Friendly Score Other XR hip RT min 2V(w/wo pelvis)* Multifocal degenerative change is noted, as above. [employer] Other XR hip RT min 2V(w/wo pelvis)* Impression dictated by: Justen Jenkins M.D.07/12/2022 1:35 PM [employer] Other XR hip RT min 2V(w/wo pelvis)* Dictation Location: [place] [address] [employer] Other XR hip RT min 2V(w/wo pelvis)* Transcribed By: SAGAR 07/12/22 [facility] [employer] Other XR hip RT min 2V(w/wo pelvis)* Dictated By: Justen Jenkins II, MD 07/12/22 [facility] [employer] Other XR hip RT min 2V(w/wo pelvis)* Signed By: [employer] Other XR hip RT min 2V(w/wo pelvis)* 07/12/22 [facility] [employer] Other CBC AUTO DIFFon 03-12-2022 BASO # 0.1 103/ul Normal 0.0-0.1 [facility] Comment on above: Performed By: #### D ATCBC #### [facility] [address] [place] [address] Dr. David Phillips Basophils/100 WBC (Bld) 1.0 % Normal 0.2-2.0 [facility] Comment on above: Performed By: #### D ATCBC #### [facility] [address] [place] [address] Dr. David Phillips EO # 0.2 103/ul Normal 0.0-0.7 [facility] Comment on above: Performed By: #### D ATCBC #### [facility] [address] [place] [address] Dr. David Phillips Eosinophils/100 WBC (Bld) 3.7 % Normal 0.9-7.0 [facility] Comment on above: Performed By: #### D ATCBC #### [facility] [address] [place] [address] Dr. David Phillips Erythrocyte distribution width (RBC) [Ratio] 13.1 % Normal 11.0-15.0 [facility] Comment on above: Performed By: #### D ATCBC #### [facility] [address] [place] [address] Dr. David Phillips Hematocrit (Bld) [Volume fraction] 41.6 % Normal 36.0-48.0 [facility] Comment on above: Performed By: #### D ATCBC #### [facility] [address] [place] [address] Dr. David Phillips Hemoglobin (Bld) [Mass/Vol] 13.6 g/dL Normal 12.0-16.0 [facility] Comment on above: Performed By: #### D ATCBC #### [facility] [address] [place] [address] Dr. David Phillips IG # 0.01 10e3/ul Normal 0.00-0.03 [facility] Comment on above: Performed By: #### D ATCBC #### [facility] [address] [place] [address] Dr. David Phillips IG % 0.2 % Normal 0.0-0.5 [facility] Comment on above: Performed By: #### D ATCBC #### [facility] [address] [place] [address] Dr. David Phillips LYMPH # 1.7 103/ul Normal 1.2-3.8 [facility] Comment on above: Performed By: #### D ATCBC #### [facility] [address] [place] [address] Dr. David Phillips Lymphocytes/100 WBC (Bld) 29.0 % Normal 20.5-60.0 [facility] Comment on above: Performed By: #### D ATCBC #### [facility] [address] [place] [address] Dr. David Phillips MCH (RBC) [Entitic mass] 28.9 pg Normal 26.7-34.0 [facility] Comment on above: Performed By: #### D ATCBC #### [facility] [address] [place] [address] Dr. David Phillips MCHC (RBC) [Mass/Vol] 32.7 g/dL Normal 29.9-35.2 [facility] Comment on above: Performed By: #### D ATCBC #### [facility] [address] [place] [address] Dr. David Phillips MCV (RBC) [Entitic vol] 88.3 fL Normal 81.0-99.0 [facility] Comment on above: Performed By: #### D ATCBC #### [facility] [address] [place] [address] Dr. David Phillips MONO # 0.5 103/ul Normal 0.3-0.8 [facility] Comment on above: Performed By: #### D ATCBC #### [facility] [address] [place] [address] Dr. David Phillips Monocytes/100 WBC (Bld) 7.7 % Normal 1.7-12.0 [facility] Comment on above: Performed By: #### D ATCBC #### [facility] [address] [place] [address] Dr. David Phillips NEUT # 3.4 103/ul Normal 1.4-6.5 [facility] Comment on above: Performed By: #### D ATCBC #### [facility] [address] [place] [address] Dr. Dvaid Phillips Neutrophils/100 WBC (Bld) 58.4 % Normal 43.0-75.0 [facility] Comment on above: Performed By: #### D ATCBC #### [facility] [address] [place] [address] Dr. David Phillips Platelet mean volume (Bld) [Entitic vol] 9.0 fL Critically low 9.5-13.5 [facility] Comment on above: Performed By: #### D ATCBC #### [facility] [address] [place] [address] Dr. David Phillips PLT 273 103/ul Normal 150-450 [facility] Comment on above: Performed By: #### D ATCBC #### [facility] [address] [place], [place] [id number] Dr. David Phillips RBC 4.71 106/ul Normal 4.20-5.40 [facility] Comment on above: Performed By: #### D ATCBC #### [facility] [address] [place] [address] Dr. David Phillips WBC 5.9 103/ul Normal 4.0-11.0 [facility] Comment on above: Performed By: #### D ATCBC #### [facility] [address] [place] [address] Dr. David Phillips BRIANNA- BMP WITH LIPIDon 2021 Anion gap [Moles/Vol] 6.8 mmol/L Normal [facility] Comment on above: Performed By: #### D ATCBC #### [facility] [address] [place] [address] Dr. David Phillips Calcium [Mass/Vol] 8.6 mg/dL Normal 8.5-10.1 [facility] Comment on above: Performed By: #### D ATCBC #### [facility] [address] [place] [address] Dr. David Phillips Chloride [Moles/Vol] 105 mmol/L Normal 98-107 [facility] Comment on above: Performed By: #### D ATCBC #### [facility] [address] [place] [address] Dr. David Phillips Cholesterol [Mass/Vol] 175 mg/dL Normal <=200 [facility] Comment on above: Performed By: #### D ATCBC #### [facility] [address] [place] [address] Dr. David Phillips Cholesterol in HDL [Mass/Vol] 68 mg/dL Critically high 40-60 [facility] Comment on above: Performed By: #### D ATCBC #### [facility] [address] [place] [address] Dr. David Phillips Cholesterol in LDL [Mass/Vol] 96.8 mg/dL Normal [facility] Comment on above: Performed By: #### D ATCBC #### [facility] [address] [place] [address] Dr. David Phillips CO2 [Moles/Vol] 32.2 mmol/L Critically high 21.0-32.0 [facility] Comment on above: Performed By: #### D ATCBC #### [facility] [address] [place] [address] Dr. David Phillips Creatinine [Mass/Vol] 0.63 mg/dL Normal 0.55-1.02 [facility] Comment on above: Performed By: #### D ATCBC #### [facility] [address] [place] [address] [address] David Phillips EGFR-AF IRAQI >60 Normal >=60 [facility] Comment on above: Performed By: #### D ATCBC #### [facility] [address] [place] [address] Dr. David Phillips EGFR-NON AF IRAQI >60 Normal >=60 [facility] Comment on above: Performed By: #### D ATCBC #### [facility] [address] [place] [address] Dr. David Phillips Glucose [Mass/Vol] 97 mg/dL Normal 74-106 [facility] Comment on above: Performed By: #### D ATCBC #### [facility] [address] [place] [address] Dr. David Phillips HDL NORMAL > or = 60 mg/dl - LO W CARDIOVASCULAR RISK <40 mg/dl - HIGH CARDIOVASCULAR RISK Normal [facility] Comment on above: Performed By: #### D ATCBC #### [facility] [address] [place] [address] Dr. David Phillips LDL CALC NORMAL SEE BELOW Normal [facility] Comment on above: Result Comment: <100 mg/dl OPTIMAL 100 - 129 mg/dl NEAR OR ABOVE OPTIMAL 130 - 159 mg/dl BORDERLINE HIGH 160 - 189 mg/dl HIGH >190 mg/dl VERY HIGH Performed By: #### D ATCBC #### [facility] [address] [place] [address] Dr. David Phillips Potassium [Moles/Vol] 4.0 mmol/L Normal 3.5-5.1 [facility] Comment on above: Performed By: #### D ATCBC #### [facility] [address] [place] [address] Dr. David Phillips Sodium [Moles/Vol] 140 mmol/L Normal 136-145 [facility] Comment on above: Performed By: #### D ATCBC #### [facility] [address] [place] [address] Dr. David Phillips Triglyceride [Mass/Vol] 51 mg/dL Normal <=150 [facility] Comment on above: Performed By: #### D ATCBC #### [facility] [address] [place] [address] Dr. David Phillips Urea nitrogen [Mass/Vol] 17.0 mg/dL Normal 7.0-18.0 [facility] Comment on above: Performed By: #### D ATCBC #### [facility] [address] [place] [address] Dr. David Phillips Urea nitrogen/Creatinine [Mass ratio] 27.0 mg/mg Normal [facility] Comment on above: Performed By: #### D ATCBC #### [facility] [address] [place] [address] Dr. David Phillips VLDL CALC 10.2 mg/dL Normal [facility] Comment on above: Performed By: #### D ATCBC #### [facility] [address] [place] [address] Dr. David Phillips CBC AUTO DIFFon 02-07-2022 BASO # 0.1 103/ul Normal 0.0-0.1 [facility] Comment on above: Performed By: #### D ATCBC #### [facility] [address] [place] [address] Dr. David Phillips Basophils/100 WBC (Bld) 0.5 % Normal 0.2-2.0 [facility] Comment on above: Performed By: #### D ATCBC #### [facility] [address] [place] [address] Dr. David Phillips EO # 0.2 103/ul Normal 0.0-0.7 [facility] Comment on above: Performed By: #### D ATCBC #### [facility] [address] [place] [address] Dr. David Phillips Eosinophils/100 WBC (Bld) 1.4 % Normal 0.9-7.0 [facility] Comment on above: Performed By: #### D ATCBC #### [facility] [address] [place] [address] Dr. Davdi Phillips Erythrocyte distribution width (RBC) [Ratio] 13.2 % Normal 11.0-15.0 [facility] Comment on above: Performed By: #### D ATCBC #### [facility] [address] [place] [address] Dr. David Phillips Hematocrit (Bld) [Volume fraction] 42.7 % Normal 36.0-48.0 [facility] Comment on above: Performed By: #### D ATCBC #### [facility] [address] [place] [address] Dr. David Phillips Hemoglobin (Bld) [Mass/Vol] 13.7 g/dL Normal 12.0-16.0 [facility] Comment on above: Performed By: #### D ATCBC #### [facility] [address] [place] [address] Dr. David Phlilips IG # 0.04 10e3/ul Critically high 0.00-0.03 [facility] Comment on above: Performed By: #### D ATCBC #### [facility] [address] [place] [address] Dr. David Phillips IG % 0.4 % Normal 0.0-0.5 [facility] Comment on above: Performed By: #### D ATCBC #### [facility] [address] [place] [address] Dr. David Phillips LYMPH # 1.5 103/ul Normal 1.2-3.8 [facility] Comment on above: Performed By: #### D ATCBC #### [facility] [address] [place] [address] Dr. David Phillips Lymphocytes/100 WBC (Bld) 12.9 % Critically low 20.5-60.0 [facility] Comment on above: Performed By: #### D ATCBC #### [facility] [address] [address] [address] David Phillips MCH (RBC) [Entitic mass] 29.0 pg Normal 26.7-34.0 [facility] Comment on above: Performed By: #### D ATCBC #### [facility] [address] [place] [address] Dr. David Phillips MCHC (RBC) [Mass/Vol] 32.1 g/dL Normal 29.9-35.2 [facility] Comment on above: Performed By: #### D ATCBC #### [facility] [address] [place] [address] Dr. David Phillips MCV (RBC) [Entitic vol] 90.5 fL Normal 81.0-99.0 [facility] Comment on above: Performed By: #### D ATCBC #### [facility] [address] [place] [address] Dr. David Phillips MONO # 0.9 103/ul Critically high 0.3-0.8 [facility] Comment on above: Performed By: #### D ATCBC #### [facility] [address] [place] [address] Dr. David Phillips Monocytes/100 WBC (Bld) 7.5 % Normal 1.7-12.0 [facility] Comment on above: Performed By: #### D ATCBC #### [facility] [address] [place] [address] Dr. David Phillips NEUT # 8.8 103/ul Critically high 1.4-6.5 [facility] Comment on above: Performed By: #### D ATCBC #### [facility] [address] [place] [address] Dr. David Phillips Neutrophils/100 WBC (Bld) 77.3 % Critically high 43.0-75.0 [facility] Comment on above: Performed By: #### D ATCBC #### [facility] [address] [place] [address] Dr. David Phillips Platelet mean volume (Bld) [Entitic vol] 8.9 fL Critically low 9.5-13.5 [facility] Comment on above: Performed By: #### D ATCBC #### [facility] [address] [address] [address] David Phillips PLT 283 103/ul Normal 150-450 [facility] Comment on above: Performed By: #### D ATCBC #### [facility] [address] [address] [address] David Phillips RBC 4.72 106/ul Normal 4.20-5.40 [facility] Comment on above: Performed By: #### D ATCBC #### [facility] [address] [address] [address] David Phillips WBC 11.4 103/ul Critically high 4.0-11.0 [facility] Comment on above: Performed By: #### D ATCBC #### [facility] [address] [address] [address] David Phillips BRIANNA- BMP WITH LIPIDon 2021 Anion gap [Moles/Vol] 9.1 mmol/L Normal [facility] Comment on above: Performed By: #### D ATBMP #### [facility] [address] [address] [address] David Phillips Calcium [Mass/Vol] 9.0 mg/dL Normal 8.5-10.1 [facility] Comment on above: Performed By: #### D ATBMP #### [facility] [address] [address] [address] David Phillips Chloride [Moles/Vol] 103 mmol/L Normal 98-107 [facility] Comment on above: Performed By: #### D ATBMP #### [facility] [address] [address] [address] David Phillips Cholesterol [Mass/Vol] 183 mg/dL Normal <=200 [facility] Comment on above: Performed By: #### D ATBMP #### [facility] [address] [address] [address] David Phillips Cholesterol in HDL [Mass/Vol] 75 mg/dL Critically high 40-60 [facility] Comment on above: Performed By: #### D ATBMP #### [facility] [address] [address] [address] David Phillips Cholesterol in LDL [Mass/Vol] 95.2 mg/dL Normal [facility] Comment on above: Performed By: #### D ATBMP #### [facility] [address] [address] [address] David Phillips CO2 [Moles/Vol] 31.1 mmol/L Normal 21.0-32.0 [facility] Comment on above: Performed By: #### D ATBMP #### [facility] [address] [address] [address] David Phillips Creatinine [Mass/Vol] 0.71 mg/dL Normal 0.55-1.02 [facility] Comment on above: Performed By: #### D ATBMP #### [facility] [address] [address] [address] David Phillips EGFR-AF IRAQI >60 Normal >=60 [facility] Comment on above: Performed By: #### D ATBMP #### [facility] [address] [address] [address] David Phillips EGFR-NON AF IRAQI >60 Normal >=60 [facility] Comment on above: Performed By: #### D ATBMP #### [facility] [address] [address] [address] David Phillips Glucose [Mass/Vol] 108 mg/dL Critically high 74-106 [facility] Comment on above: Performed By: #### D ATBMP #### [facility] [address] [address] [address] David Phillips HDL NORMAL > or = 60 mg/dl - LO W CARDIOVASCULAR RISK <40 mg/dl - HIGH CARDIOVASCULAR RISK Normal [facility] Comment on above: Performed By: #### D ATBMP #### [facility] [address] [address] [address] David Phillips LDL CALC NORMAL SEE BELOW Normal [facility] Comment on above: Result Comment: <100 mg/dl OPTIMAL 100 - 129 mg/dl NEAR OR ABOVE OPTIMAL 130 - 159 mg/dl BORDERLINE HIGH 160 - 189 mg/dl HIGH >190 mg/dl VERY HIGH Performed By: #### D ATBMP #### [facility] [address] [address] [address] David Phillips Potassium [Moles/Vol] 4.2 mmol/L Normal 3.5-5.1 [facility] Comment on above: Performed By: #### D ATBMP #### [facility] [address] [address] [address] David Phillips Sodium [Moles/Vol] 139 mmol/L Normal 136-145 [facility] Comment on above: Performed By: #### D ATBMP #### [facility] [address] [place] [address] Dr. David Phillips Triglyceride [Mass/Vol] 64 mg/dL Normal <=150 [facility] Comment on above: Performed By: #### D ATBMP #### [facility] [address] [address] [address] David Phillips Urea nitrogen [Mass/Vol] 15.0 mg/dL Normal 7.0-18.0 [facility] Comment on above: Performed By: #### D ATBMP #### [facility] [address] [place] [address] Dr. David Phillips Urea nitrogen/Creatinine [Mass ratio] 21.1 mg/mg Normal [facility] Comment on above: Performed By: #### D ATBMP #### [facility] [address] [address] [address] David Phillips VLDL CALC 12.8 mg/dL Normal [facility] Comment on above: Performed By: #### D ATBMP #### [facility] [address] [address] [address] David Phillips GLYCOHEMOGLOBIN A1Con 2021 ADA RECOMMENDATION SEE BELOW Normal [facility] Comment on above: Result Comment: ADA RECOMMENDED LIMIT 4.0 - 6.0 ADA THERAPEUTIC TARGET < 7.0 ACTION SUGGESTED > 7.0 Performed By: #### D ATA #### [facility] [address] [place] [address] Dr. David Phillips Glucose [Mass/Vol] 111 mg/dL Normal [facility] Comment on above: Performed By: #### D ATA1C #### [facility] [address] [place] [address] Dr. David Phillips HbA1c (Bld) [Mass fraction] 5.5 % Normal 4.5-6.2 [facility] Comment on above: Performed By: #### D ATA1C #### [facility] [address] [place] [address] Dr. David Phillips SGOTon 02-07-2022 AST [Catalytic activity/Vol] 19 U/L Normal 15-37 [facility] Comment on above: Performed By: #### A LT, AST #### [facility] [address] [place] [address] Dr. David Phillips SGPTon 02-07-2022 ALT [Catalytic activity/Vol] 27 U/L Normal 14-59 [facility] Comment on above: Performed By: #### A LT, AST #### [facility] [address] [place] [address] Dr. David Phillips CBC AUTO DIFFon 11-28-2021 BASO # 0.0 103/ul Normal 0.0-0.1 [facility] Comment on above: Performed By: #### D ATCBC #### [facility] [address] [place] [address] Dr. David Phillips Basophils/100 WBC (Bld) 0.1 % Critically low 0.2-2.0 [facility] Comment on above: Performed By: #### D ATCBC #### [facility] [address] [place] [address] Dr. David Phillips EO # 0.0 103/ul Normal 0.0-0.7 [facility] Comment on above: Performed By: #### D ATCBC #### [facility] [address] [place] [address] Dr. David Phillips Eosinophils/100 WBC (Bld) 0.0 % Critically low 0.9-7.0 [facility] Comment on above: Performed By: #### D ATCBC #### [facility] [address] [address] [address] David Phillips Erythrocyte distribution width (RBC) [Ratio] 13.5 % Normal 11.0-15.0 [facility] Comment on above: Performed By: #### D ATCBC #### [facility] [address] [place] [address] Dr. David Phillips Hematocrit (Bld) [Volume fraction] 41.4 % Normal 36.0-48.0 [facility] Comment on above: Performed By: #### D ATCBC #### [facility] [address] [place] [address] Dr. David Phillips Hemoglobin (Bld) [Mass/Vol] 13.4 g/dL Normal 12.0-16.0 [facility] Comment on above: Performed By: #### D ATCBC #### [facility] [address] [place] [address] Dr. David Phillips IG # 0.07 10e3/ul Critically high 0.00-0.03 [facility] Comment on above: Performed By: #### D ATCBC #### [facility] [address] [place] [address] Dr. David Phillips IG % 0.5 % Normal 0.0-0.5 [facility] Comment on above: Performed By: #### D ATCBC #### [facility] [address] [place] [address] Dr. David Phillips LYMPH # 1.0 103/ul Critically low 1.2-3.8 [facility] Comment on above: Performed By: #### D ATCBC #### [facility] [address] [place] [address] Dr. David Phillips Lymphocytes/100 WBC (Bld) 7.1 % Critically low 20.5-60.0 [facility] Comment on above: Performed By: #### D ATCBC #### [facility] [address] [place] [address] Dr. David Phillips MCH (RBC) [Entitic mass] 28.8 pg Normal 26.7-34.0 [facility] Comment on above: Performed By: #### D ATCBC #### [facility] [address] [address] [address] David Phillips MCHC (RBC) [Mass/Vol] 32.4 g/dL Normal 29.9-35.2 [facility] Comment on above: Performed By: #### D ATCBC #### [facility] [address] [address] [address] David Phillips MCV (RBC) [Entitic vol] 88.8 fL Normal 81.0-99.0 [facility] Comment on above: Performed By: #### D ATCBC #### [facility] [address] [place] [address] Dr. David Phillips MONO # 0.3 103/ul Normal 0.3-0.8 [facility] Comment on above: Performed By: #### D ATCBC #### [facility] [address] [address] [address] David Phillips Monocytes/100 WBC (Bld) 1.9 % Normal 1.7-12.0 [facility] Comment on above: Performed By: #### D ATCBC #### [facility] [address] [place] [address] Dr. David Phillips NEUT # 12.9 103/ul Critically high 1.4-6.5 [facility] Comment on above: Performed By: #### D ATCBC #### [facility] [address] [address] [address] David Phillips Neutrophils/100 WBC (Bld) 90.4 % Critically high 43.0-75.0 [facility] Comment on above: Performed By: #### D ATCBC #### [facility] [address] [place] [address] Dr. David Phillips Platelet mean volume (Bld) [Entitic vol] 9.1 fL Critically low 9.5-13.5 [facility] Comment on above: Performed By: #### D ATCBC #### [facility] [address] [place] [address] Dr. David Phillips PLT 296 103/ul Normal 150-450 [facility] Comment on above: Performed By: #### D ATCBC #### [facility] [address] [address] [address] David Phillips RBC 4.66 106/ul Normal 4.20-5.40 [facility] Comment on above: Performed By: #### D ATCBC #### [facility] [address] [address] [address] David Phillips WBC 14.3 103/ul Critically high 4.0-11.0 [facility] Comment on above: Performed By: #### D ATCBC #### [facility] [address] [address] [address] David Phillips BRIANNA- BMP WITH LIPIDon 2021 Anion gap [Moles/Vol] 13.2 mmol/L Normal [facility] Comment on above: Performed By: #### D ATBMP #### [facility] [address] [address] [address] David Phillips Calcium [Mass/Vol] 9.0 mg/dL Normal 8.5-10.1 [facility] Comment on above: Performed By: #### D ATBMP #### [facility] [address] [place] [address] Dr. David Phillips Chloride [Moles/Vol] 105 mmol/L Normal 98-107 [facility] Comment on above: Performed By: #### D ATBMP #### [facility] [address] [address] [address] David Phillips Cholesterol [Mass/Vol] 191 mg/dL Normal <=200 [facility] Comment on above: Performed By: #### D ATBMP #### [facility] [address] [address] [address] David Phillips Cholesterol in HDL [Mass/Vol] 71 mg/dL Critically high 40-60 [facility] Comment on above: Performed By: #### D ATBMP #### [facility] [address] [place] [address] Dr. David Phillips Cholesterol in LDL [Mass/Vol] 107.4 mg/dL Normal [facility] Comment on above: Performed By: #### D ATBMP #### [facility] [address] [address] [address] David Phlilips CO2 [Moles/Vol] 28.7 mmol/L Normal 21.0-32.0 [facility] Comment on above: Performed By: #### D ATBMP #### [facility] [address] [address] [address] David Phillips Creatinine [Mass/Vol] 0.62 mg/dL Normal 0.55-1.02 [facility] Comment on above: Performed By: #### D ATBMP #### [facility] [address] [address] [address] David Phillips EGFR-AF IRAQI >60 Normal >=60 [facility] Comment on above: Performed By: #### D ATBMP #### [facility] [address] [address] [address] David Phillips EGFR-NON AF IRAQI >60 Normal >=60 [facility] Comment on above: Performed By: #### D ATBMP #### [facility] [address] [address] [address] David Phillips Glucose [Mass/Vol] 128 mg/dL Critically high 74-106 T [facility] Comment on above: Performed By: #### D ATBMP #### [facility] [address] [address] [address] David Phillips HDL NORMAL > or = 60 mg/dl - LO W CARDIOVASCULAR RISK <40 mg/dl - HIGH CARDIOVASCULAR RISK Normal [facility] Comment on above: Performed By: #### D ATBMP #### [facility] [address] [address] [address] David Phillips LDL CALC NORMAL SEE BELOW Normal [facility] Comment on above: Result Comment: <100 mg/dl OPTIMAL 100 - 129 mg/dl NEAR OR ABOVE OPTIMAL 130 - 159 mg/dl BORDERLINE HIGH 160 - 189 mg/dl HIGH >190 mg/dl VERY HIGH Performed By: #### D ATBMP #### [facility] [address] [address] [address] David Phillips Potassium [Moles/Vol] 3.9 mmol/L Normal 3.5-5.1 [facility] Comment on above: Performed By: #### D ATBMP #### [facility] [address] [address] [address] David Phillips Sodium [Moles/Vol] 143 mmol/L Normal 136-145 [facility] Comment on above: Performed By: #### D ATBMP #### [facility] [address] [address] [address] David Phillips Triglyceride [Mass/Vol] 63 mg/dL Normal <=150 [facility] Comment on above: Performed By: #### D ATBMP #### [facility] [address] [place] [address] Dr. David Phillips Urea nitrogen [Mass/Vol] 15.0 mg/dL Normal 7.0-18.0 [facility] Comment on above: Performed By: #### D ATBMP #### [facility] [address] [place] [address] Dr. David Phillips Urea nitrogen/Creatinine [Mass ratio] 24.2 mg/mg Normal [facility] Comment on above: Performed By: #### D ATBMP #### [facility] [address] [place] [address] Dr. David Phillips VLDL CALC 12.6 mg/dL Normal [facility] Comment on above: Performed By: #### D ATBMP #### [facility] [address] [place] [address] Dr. David Phillips GLYCOHEMOGLOBIN A1Con 2021 ADA RECOMMENDATION SEE BELOW Normal [facility] Comment on above: Result Comment: ADA RECOMMENDED LIMIT 4.0 - 6.0 ADA THERAPEUTIC TARGET < 7.0 ACTION SUGGESTED > 7.0 Performed By: #### D ATCBC #### [facility] [address] [place] [address] Dr. David Phillips Glucose [Mass/Vol] 105 mg/dL Normal [facility] Comment on above: Performed By: #### D ATCBC #### [facility] [address] [place], [place] [address] Dr. David Phillips HbA1c (Bld) [Mass fraction] 5.3 % Normal 4.5-6.2 [facility] Comment on above: Performed By: #### D ATCBC #### [facility] [address] [place], [place] [address] Dr. David Phillips SCREENING MAMMOGRAM W/GAIL, BILATERAL*on [...] VERY IMPORTANT TO YOUR HEALTH. THE CURRENT [place] [employer] GUIDELINES RECOMMENDS ANNUAL MAMMOGRAPHY BEGINNING AT AGE 39 THIS FACILITY USES A REMINDER SYSTEM TO ENSURE ALL PATIENTS RECEIVE REMINDER NOTIFICATIONS AT THE APPROPRIATE TIME BASED ON THE RECOMMENDATIONS OF THIS EXAM. Board Certified Radiologist. Accredited by the ACR and FDA. Report reported and signed by Trell Martin on 06/11/2021 1236 Normal [facility] Graphic Technician LARGE JOINT/BURSA INJECTION AND/OR ASPIRATION: R hip jointon 05-02-2020 Rachna Dale 05/03/2020 6:01 PM LARGE JOINT/BURSA INJECTION AND/OR [...] fashion. The patient was prepped with Chloraprep. 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 [facility] X-rays, weightbearin g AP pelvis and 2 [...] sacroiliac joints demonstrate moderate evidence of osteoarthrosis. [facility] CBCon 02-25-2018 ABSOLUTE BAS 0.0 X10 Normal [facility] ABSOLUTE EOS 0.10 X10 Normal [facility] ABSOLUTE NEUTROPHIL COUNT 4.5 x10 Normal 1.0-7.0 [facility] Basophils/100 WBC Auto (Bld) 0.7 % Normal 0.0-2.0 [facility] DTYPE AUTO DIFF Normal [facility] Eosinophils/100 WBC Auto (Bld) 1.9 % Normal 0.0-11.0 [facility] Lymphocytes Auto #/vol (Bld) 1.80 X10 Normal [facility] Lymphocytes/100 WBC Auto (Bld) 25.1 % Normal 20.0-55.0 [facility] Monocytes Auto #/vol (Bld) 0.6 X10 Normal [facility] Monocytes/100 WBC Auto (Bld) 8.3 % Normal 0.0-10.0 [facility] Neutrophils/100 WBC Auto (Bld) 64.0 % Normal 37.0-75.0 [facility] Erythrocyte distribution width Auto Ratio (RBC) 13.4 % Normal 11.5-14.5 [facility] Hematocrit Auto Volume Fraction (Bld) 39.9 % Normal 36.0-48.0 [facility] Hemoglobin mass conc (Bld) 13.4 g/dL Normal 12.0-16.0 [facility] MCH Auto Entitic mass (RBC) 28.7 pg Normal 26.0-35.0 [facility] MCHC Auto mass conc (RBC) 33.5 g/dL Normal 27.0-37.0 [facility] MCV Auto Entitic volume (RBC) 85.7 fL Normal 80.0-100.0 [facility] Platelet mean volume Auto Entitic volume (Bld) 7.3 fL Low 7.4-11.0 [facility] Platelets Auto #/vol (Bld) 329 /cmm Normal 130.0-400. 0 [facility] RBC Auto #/vol (Bld) 4.66 /cmm Normal 4.0-5.4 [facility] WBC Auto #/vol (Bld) 7.0 /cmm Normal 3.6-11.0 [facility] CHEMISTRY, [facility] ALT enzyme act/vol 30 U/L Normal 9-52 [facility] Calcium mass conc 9.3 mg/dL Normal 8.4-10.2 [facility] Cholesterol in HDL mass conc 49 mg/dL Normal 33-75 [facility] Cholesterol in LDL mass conc 91 MG/DL Normal [facility] Cholesterol in VLDL mass conc 22 mg/dL Normal 5.0-25 [facility] Cholesterol mass conc 162 mg/dL Normal 107-217 [facility] Cholesterol.total/C holesterol in HDL mass ratio 3.31 {ratio} Normal [facility] Comment on above: Result Comment: RISK TOTAL/HDL RATIO MEN WOMEN1/2 AVERAGE 3.43 3.27AVERAGE 4.97 4.442X AVERAGE 9.55 7.053X AVERAGE 23.99 11.04 Creatinine mass conc 0.6 mg/dL Low 0.7-1.2 [facility] EST. GFR, >60 Normal [facility] EST. GFR,Non >60 Normal [facility] Gamma glutamyl transferase [Enzymatic activity/volume] in Serum or Plasma 18 IU/L Normal 12-43 [facility] GFR/1.73 sq M predicted among non-blacks MDRD vol rate/area (S/P/Bld) Average GFR for 60-69 years old = 85. Normal [facility] Comment on above: Result Comment: Investigator Operator karime Kidney disease, GFR = <60.Kidney failure, GFR = <15.The GFR estimate is not adjusted for extreme body surface area or acute process, nor has it been validated for women or ethnic groups other than and . Glucose mass conc 92 mg/dL Normal 70-100 [facility] Comment on above: Result Comment: NORM AL <100 mg/dLPREDIABETES 101-126 mg/dLDIABETES 126 mg/dL or higher Potassium molar conc 4.3 mmol/L Normal 3.5-5.1 [facility] Sodium molar conc 142 mmol/L Normal 137-145 [facility] Triglyceride mass conc 111 mg/dL Normal 0-150 [facility] Urea nitrogen mass conc (Bld) 17 mg/dL Normal 7-20 [facility] HEMOGLOBIN A1Con 02-25-2018 Glucose mass conc 105 mg/dL Normal [facility] Hemoglobin A1c/Hemoglobin.tota l mass fraction (Bld) 5.3 % Normal 0-6 [facility] Comment on above: Result Comment: NORM AL <5.7%PREDIABETES 5.7-6.4%DIABETES 6.5% OR HIGHER WRISTon 12-05-2017 WRIST Final ReportAccession No: [id number] Performed: Dec 05 2017 11:45AMExamination: RIGHT [...] incompletely healed distal radial fracture.No newfractures.Interpreting Physician: GARY BLANCO D.O.Trans: abond : cc: Normal [facility] WRISTon 11-07-2017 WRIST Final ReportAccession No: [id number] Performed: Nov 07 2017 9:58AMExamination: RIGHT [...] MADIE LORENZO M.D.Trans: lcoope : cc: Normal [facility] XR WRIST RIGHT 3+ VIEWS (STA NDARD)on 10-08-2017 XR WRIST RIGHT 3+ VIEWS (STANDARD) EXAMINATION:XR WRIST RIGHT 3+ VIEWS (STANDARD)HISTORY:ORDERING SYSTEM PROVIDED HISTORY: PAIN, TECHNOLOGIST PROVIDED HISTORY: Reason for exam: rt wrist painInjury/TraumaCancer History: unkSurgery, RadiationHistory: carpal tunnelEncounter Type: Subsequent/Follow-upMechani sm of injury: fallORDERING SYSTEM PROVIDED DIAGNOSIS CODES:M25.532 Left wrist painCOMPARISON:09/15/2017.F INDINGS:Three views of the right wrist demonstrate a healing distal radius fracture. There is a transverse band of sclerosis through distal metadiaphysis with close approximation. Signs of bridging callus formation are noted. There is no definitive intraarticular involvement or significant angulation.Distal ulna intact.Carpal bones appear well positioned. Sehu-dq-yvedizfr arthritic changes seen of proximal carpal row, greatest laterally.IMPRESSION:1. Healing distal radial nondisplaced nonarticular transverse fracture now seen.2. Chronic zbtq-pv-sbldeiua arthritic changes, greatest involving lateral carpal joints.ARR/trnWorkstation ID: [id number] by: ANDREZ ECHAVARRIA on FriOct 09, 2017 7:30:06 AM EDTTranscribed by: LANI EDWARDS on FriOct 09, 2017 9:26:53 AM EDTFinalized by: ANDREZ ECHAVARRIA on FriOct 09, 2017 4:08:57 PM EDT Normal [facility] Comment on above: Order Comment: Reaso n for exam?:rt wrist painInjury/Trauma or Illness?:Injury/TraumaHow long have you had these symptoms (acute/chronic)?:AcuteHistory of cancer?:unkSurgeries, chemotherapy, or radiation?:carpal tunnelType of Exam?:Subsequent/Follow-upMechanism of injury?:fall XR WRIST RIGHT 3 VIEWSon XR WRIST RIGHT 3 VIEWS EXAMINATION: XR WRIST RIGHT 3 VIEWS [id number] CLINICAL HISTORY: 61-year-old female with history of fall swelling right posterior wristFINDINGS/IMPRESSION: Comparison: Compared to none available.No definite acute fracture or malalignment of the right wrist.Focal soft tissue swelling dorsally is seen at the level of the carpal metacarpal articulation. No pathologic calcifications. Blunted appearance of the ulnar styloid could relate to remote trauma. [facility] Mammogramon 11-07-2016 Mammogram Patient Name: Fe YIN : [id number]: [id number] Date: [id number] #: [id number] Class: OPhysician: Conchis COUCH Physician: , Study [...] results.The National Comprehensive Cancer Network and the [employer] recommend annual screening mammograms for women age 40 and older.Dictated: Isidro Morrison 11/07/2016 15:09Transcribed: Isidro Morrison 11/07/2016 15:11Electronically Signed: Isidro Morrison 11/07/2016 15:11[facility] [place] [address] [email or web address], [place] [address] [email or web address] [facility] Vital Signs Date Time Vital Sign Value Performing Clinician Facility 01-05-2024 11:50-0400 Diastolic blood pressure 60 mm[Hg] DO Karen Cardoso Work Phone: [facility] 01-05-2024 11:50-0400 Heart rate 88 /min DO Karen Cardoso Work Phone: [facility] 01-05-2024 11:50-0400 Respiratory rate 16 /min DO Karen Cardoso Work Phone: [facility] 01-05-2024 11:50-0400 SaO2% (BldA) [Mass fraction] 96 % DO Karen Cardoso Work Phone: [facility] 01-05-2024 11:50-0400 Systolic blood pressure 114 mm[Hg] DO Karen Cardoso Work Phone: [facility] 01-05-2024 11:20-0400 Inhaled oxygen flow rate 1 L/min DO Karen Cardoso Work Phone: [facility] 01-05-2024 11:00-0400 Body temperature 98 [degF] DO Karen Cardoso Work Phone: [facility] 01-05-2024 06:20-0400 Body height 165.1 cm DO Karen Girsrinivas Work Phone: [facility] 01-05-2024 06:20-0400 Body weight 70 kg DO Karen Girsrinivas Work Phone: [facility] 12-25-2023 14:27-0400 Body height 165.1 cm DO Karen Cardoso Work Phone: [facility] 12-25-2023 14:27-0400 Body mass index (BMI) [Ratio] 25.7 kg/m2 DO Karen Girsrinivas Work Phone: [facility] 12-25-2023 14:27-0400 Body weight 70 kg DO Karen Cardoso Work Phone: [facility] 12-12-2023 09:09-0400 Body height 165.1 cm DO Karen Cardoso Work Phone: [facility] 12-12-2023 09:09-0400 Body mass index (BMI) [Ratio] 25.7 kg/m2 DO Karen Cardoso Work Phone: [facility] 12-12-2023 09:09-0400 Body temperature 97.4 [degF] DO Karen Cardoso Work Phone: [facility] 12-12-2023 09:09-0400 Body weight 70.3 kg DO Karen Girsrinivas Work Phone: [facility] 12-12-2023 09:09-0400 Diastolic blood pressure 76 mm[Hg] DO Karen Girsrinivas Work Phone: [facility] 12-12-2023 09:09-0400 Heart rate 76 /min DO Karen Girsrinivas Work Phone: [facility] 12-12-2023 09:09-0400 Respiratory rate 16 /min DO Karen Cardoso Work Phone: [facility] 12-12-2023 09:09-0400 SaO2% (BldA) [Mass fraction] 98 % DO Karen Cardoso Work Phone: [facility] 12-12-2023 09:09-0400 Systolic blood pressure 130 mm[Hg] DO Karen Cardoso Work Phone: [facility] 09-15-2023 13:54-0400 Body height 165.1 cm DO Karen Cardoso Work Phone: [facility] 09-15-2023 13:54-0400 Body mass index (BMI) [Ratio] 26.1 kg/m2 DO Karen Cardoso Work Phone: [facility] 09-15-2023 13:54-0400 Body temperature 97.3 [degF] DO Karen Cardoso Work Phone: [facility] 09-15-2023 13:54-0400 Body weight 71.21 kg DO Karen Cardoso Work Phone: [facility] 09-15-2023 13:54-0400 Diastolic blood pressure 78 mm[Hg] DO Karen Cardoso Work Phone: [facility] 09-15-2023 13:54-0400 Heart rate 81 /min DO Karen Cardoso Work Phone: [facility] 09-15-2023 13:54-0400 SaO2% (BldA) [Mass fraction] 97 % DO Karen Cardoso Work Phone: [facility] 09-15-2023 13:54-0400 Systolic blood pressure 118 mm[Hg] DO Karen Cardoso Work Phone: [facility] 06-26-2023 09:10-0500 Body height 165.1 cm DO Karen Cardoso Work Phone: [facility] 06-26-2023 09:10-0500 Body mass index (BMI) [Ratio] 26.6 kg/m2 DO Karen Cardoso Work Phone: [facility] 06-26-2023 09:10-0500 Body temperature 97.9 [degF] DO Karen Cardoso Work Phone: [facility] 06-26-2023 09:10-0500 Body weight 72.8 kg DO Karen Cardoso Work Phone: [facility] 06-26-2023 09:10-0500 Diastolic blood pressure 78 mm[Hg] DO Karen Cardoso Work Phone: [facility] 06-26-2023 09:10-0500 Heart rate 91 /min DO Karen Cardoso Work Phone: [facility] 06-26-2023 09:10-0500 Respiratory rate 18 /min DO Karen Cardoso Work Phone: [facility] 06-26-2023 09:10-0500 SaO2% (BldA) [Mass fraction] 98 % DO Karen Cardoso Work Phone: [facility] 06-26-2023 09:10-0500 Systolic blood pressure 128 mm[Hg] DO Karen Cardoso Work Phone: [facility] 06-13-2023 09:14-0500 Body height 165.1 cm DO Karen Cardoso Work Phone: [facility] 06-13-2023 09:14-0500 Body mass index (BMI) [Ratio] 26.1 kg/m2 DO Karen Cardoso Work Phone: [facility] 06-13-2023 09:14-0500 Body weight 71.21 kg DO Karen Cardoso Work Phone: [facility] 05-14-2023 08:15-0500 Body height 165.1 cm Finn Ortez II Other [facility] 12-12-2022 09:10-0400 Body height 165.1 cm Karen Cardoso Other [facility] Other 12-12-2022 09:10-0400 Body mass index (BMI) [Ratio] 27.12 kg/m2 Karen Cardoso Other [facility] Other 12-12-2022 09:10-0400 Body temperature 98.6 [degF] Karen Cardoso Other [facility] Other 12-12-2022 09:10-0400 Body weight 73.94 kg Karen Cardoso Other [facility] Other 12-12-2022 09:10-0400 Diastolic blood pressure 78 mm[Hg] Karen Cardoso Other [facility] Other 12-12-2022 09:10-0400 Respiratory rate 18 /min Karen Cardoso Other [facility] Other 12-12-2022 09:10-0400 SaO2% (BldA) [Mass fraction] 96 % Karen Cardoso Other [facility] Other 12-12-2022 09:10-0400 Systolic blood pressure 124 mm[Hg] Karen Cardoso Other [facility] Other 07-12-2022 11:00-0400 Body height 165.1 cm Finn Ortez II Other [facility] Other 07-12-2022 11:00-0400 Body mass index (BMI) [Ratio] 26.62 kg/m2 Finn Trumbull II Other [facility] Other 07-12-2022 11:00-0400 Body weight 72.58 kg Finn Shultzle II Other [facility] Other 06-13-2022 09:10-0500 Body height 165.1 cm Karen Cardoso Other [facility] Other 06-13-2022 09:10-0500 Body mass index (BMI) [Ratio] 27.29 kg/m2 Karen Cardoso Other [facility] Other 06-13-2022 09:10-0500 Body weight 74.39 kg Karen Cardoso Other [facility] Other 06-13-2022 09:10-0500 Diastolic blood pressure 80 mm[Hg] Karen Cardoso Other [facility] Other 06-13-2022 09:10-0500 Respiratory rate 18 /min Karen Cardoso Other [facility] Other 06-13-2022 09:10-0500 SaO2% (BldA) [Mass fraction] 98 % Karen Cardoso Other [facility] Other 06-13-2022 09:10-0500 Systolic blood pressure 132 mm[Hg] Karen Cardoso Other [facility] Other 02-12-2022 10:50-0400 Body height 165.1 cm Karen Cardoso Other [facility] Other 12-06-2021 11:30-0400 Body height 165.1 cm Karen Cardoso Other [facility] Other 12-06-2021 11:30-0400 Body mass index (BMI) [Ratio] 25.62 kg/m2 Karen Cardoso Other [facility] Other 12-06-2021 11:30-0400 Body temperature 97.6 [degF] Karen Cardoso Other [facility] Other 12-06-2021 11:30-0400 Body weight 69.85 kg Karen Cardoso Other [facility] Other 12-06-2021 11:30-0400 Diastolic blood pressure 82 mm[Hg] Karen Cardoso Other [facility] Other 12-06-2021 11:30-0400 Respiratory rate 16 /min Karen Cardoso Other [facility] Other 12-06-2021 11:30-0400 SaO2% (BldA) [Mass fraction] 96 % Karen Cardoso Other [facility] Other 12-06-2021 11:30-0400 Systolic blood pressure 122 mm[Hg] Karen Cardoso Other [facility] Other 05-23-2020 09:12-0500 BMI (Body Mass Index) 28.06 kg/m2 [facility] 05-23-2020 09:12-0500 Body weight 76.48 kg [facility] 05-23-2020 09:12-0500 Height 165.1 cm [facility] 05-02-2020 12:42-0500 BMI (Body Mass Index) 28.36 kg/m2 [facility] 05-02-2020 12:42-0500 Body weight 77.29 kg [facility] 05-02-2020 12:42-0500 Height 165.1 cm [facility] 04-29-2020 14:49-0500 Body surface area Derived from formula 1.8 m2 [facility] 04-27-2020 08:58-0500 BMI (Body Mass Index) 26.63 kg/m2 [facility] 04-27-2020 08:58-0500 Body weight 72.58 kg [facility] 04-27-2020 08:58-0500 Height 165.1 cm [facility] 07-27-2018 08:54-0400 BMI (Body Mass Index) 26.48 kg/m2 [facility] 07-27-2018 08:54-0400 Body Temperature 98.49 [degF] [facility] 07-27-2018 08:54-0400 Body weight 73.85 kg [facility] 07-27-2018 08:54-0400 BP Diastolic 60 mm[Hg] [facility] 07-27-2018 08:54-0400 BP Systolic 110 mm[Hg] [facility] 07-27-2018 08:54-0400 Height 167 cm [facility] 07-27-2018 08:54-0400 Pulse (Heart Rate) 65 /min [facility] 07-27-2018 08:54-0400 Pulse Oximetry 96 % [facility] 07-27-2018 08:54-0400 Respiratory Rate 16 /min [facility] 05-11-2018 15:19-0500 BMI (Body Mass Index) 26.57 kg/m2 [facility] Work Phone: 05-11-2018 15:19-0500 Body Temperature 97.3 [degF] [facility] Work Phone: 05-11-2018 15:19-0500 BP Diastolic 68 mm[Hg] [facility] Work Phone: 05-11-2018 15:19-0500 BP Systolic 118 mm[Hg] [facility] Work Phone: 05-11-2018 15:19-0500 Height 167 cm [facility] Work Phone: 05-11-2018 15:19-0500 Pulse (Heart Rate) 73 /min Payton Kovol[facility] Work Phone: 05-11-2018 15:19-0500 [facility] 05-11-2018 15:19-0500 Respiratory Rate 16 /min [facility] Work Phone: 05-11-2018 15:19-0500 Weight 74.12 kg [facility] Work Phone: 03-30-2018 13:16-0500 BMI (Body Mass Index) 26.7 kg/m2 [facility] Work Phone: 03-30-2018 13:16-0500 Body Temperature 97.7 [degF] [facility] 03-30-2018 13:16-0500 BP Diastolic 58 mm[Hg] [facility] Work Phone: 03-30-2018 13:16-0500 BP Systolic 116 mm[Hg] [facility] Work Phone: 03-30-2018 13:16-0500 Height 167 cm [facility] Work Phone: 03-30-2018 13:16-0500 Pulse (Heart Rate) 66 /min [facility] Work Phone: 03-30-2018 13:16-0500 Pulse Oximetry 97 % [facility] Work Phone: 03-30-2018 13:16-0500 Respiratory Rate 16 /min [facility] Work Phone: 03-30-2018 13:16-0500 Weight 74.48 kg Payton [facility] Work Phone: 12-05-2017 11:24-0400 BMI (Body Mass Index) 26.61 kg/m2 [facility] 12-05-2017 11:24-0400 BP Diastolic 78 mm[Hg] [facility] 12-05-2017 11:24-0400 BP Systolic 130 mm[Hg] [facility] 12-05-2017 11:24-0400 Height 162.6 cm [facility] 12-05-2017 11:24-0400 Pulse (Heart Rate) 57 /min [facility] 12-05-2017 11:24-0400 Weight 70.31 kg [facility] 11-07-2017 09:44-0400 BMI (Body Mass Index) 26.61 kg/m2 [facility] 11-07-2017 09:44-0400 Height 162.6 cm [facility] 11-07-2017 09:44-0400 Weight 70.31 kg [facility] 10-08-2017 14:41-0400 BMI (Body Mass Index) 26.61 kg/m2 [facility] 10-08-2017 14:41-0400 Height 162.6 cm [facility] 10-08-2017 14:41-0400 Weight 70.31 kg [facility] Encounters Encounter Date Encounter Type Care Provider Facility Start: 01-21-2024 End: 01-21-2024 ambulatory DO Karen Cardoso Work Phone: [facility] Work Phone: Start: 01-21-2024 End: 01-21-2024 Patient encounter procedure DO Karen Cardoso Work Phone: [facility] Work Phone: Start: 01-05-2024 Non-patient / Non-visit DO Saurabh Cardoso Work Phone: [facility] Work Phone: Start: 01-05-2024 End: 01-05-2024 Admission to same day surgery center DO Karen Cardoso Work Phone: [facility] [place] Start: 01-05-2024 End: 01-05-2024 ambulatory DO Karen Cardoso Work Phone: [facility] Work Phone: Start: 12-30-2023 Registered Recurring DO Karen Cardoso Work Phone: [facility] Start: 12-30-2023 ambulatory Floyd Garza acility:[facility] Start: 12-26-2023 End: 12-26-2023 ambulatory DO Karen Cardoso Work Phone: [facility] Work Phone: Start: 12-26-2023 End: 12-26-2023 Patient encounter procedure DO Karen Cardoso Work Phone: [facility] Work Phone: Start: 12-25-2023 End: 12-25-2023 Patient encounter procedure DO Karen Serranosrinivas Work Phone: [facility] Work Phone: Start: 12-25-2023 Registered Recurring DO Karen Serranosrinivas Work Phone: [facility] [place] Start: 12-25-2023 End: 12-25-2023 ambulatory DO Karen Walker Work Phone: [facility] Work Phone: Start: 12-22-2023 End: 12-22-2023 Patient encounter procedure DO Karen Serranosrinivas Work Phone: [facility]-Pre-Surgical Testing Work Phone: Start: 12-22-2023 End: 12-22-2023 ambulatory DO Karen Cardoso Work Phone: [facility] Work Phone: Start: 12-22-2023 Encounter for preprocedural laboratory examination Finn Ortez II [facility] Start: 12-19-2023 Non-patient / Non-visit DO Saurabh Cardoso Work Phone: [facility] Work Phone: Start: 12-19-2023 Non-patient / Non-visit DO Saurabh id Girsrinivas Work Phone: [facility] Work Phone: Start: 12-12-2023 Patient encounter status DO Da roel Cardoso Work Phone: [facility] Start: 12-12-2023 End: 12-12-2023 ambulatory DO Karen Cardoso Work Phone: [facility] Work Phone: Start: 12-12-2023 End: 12-12-2023 Patient encounter procedure DO Karen Cardoso Work Phone: [facility] Work Phone: Start: 12-06-2023 Non-patient / Non-visit DO Saurabh id Walker Work Phone: [facility] Work Phone: Start: 11-20-2023 Registered Recurring DO Karen Cardoso Work Phone: [facility] Start: 11-19-2023 End: 11-19-2023 Patient encounter procedure DO Karen Cardoso Work Phone: [facility] Start: 11-19-2023 End: 11-19-2023 ambulatory DO Karen Cardoso Work Phone: [facility] Work Phone: Start: 11-19-2023 End: 11-19-2023 ambulatory DO Karen Cardoso Work Phone: [facility] Work Phone: Start: 11-19-2023 End: 11-19-2023 Patient encounter procedure DO Karen Walker Work Phone: [facility] Work Phone: Start: 11-11-2023 Registered Recurring DO Karen Cardoso Work Phone: [facility] Start: 09-18-2023 End: 09-18-2023 ambulatory DO Karen Maggiesrinivas Work Phone: [facility] Work Phone: Start: 09-18-2023 End: 09-18-2023 Patient encounter procedure DO Karen Walker Work Phone: [facility] Work Phone: Start: 09-15-2023 End: 09-15-2023 Patient encounter procedure DO Karen Serranosrinivas Work Phone: [facility] Work Phone: Start: 09-15-2023 End: 09-15-2023 ambulatory DO Karen Cardoso Work Phone: [facility] Work Phone: Start: 09-15-2023 End: 09-15-2023 Departed Referred DO Karen Cardoso Work Phone: [facility] [place] Work Phone: Start: 09-09-2023 End: 09-09-2023 ambulatory ANGELA Arash DUBOSE Not Available Start: 09-09-2023 End: 09-09-2023 ambulatory TERRANCE S VANCE Not Available Start: 08-29-2023 End: 08-30-2023 ambulatory JASON JENSEN Not Available Start: 08-20-2023 End: 08-20-2023 ambulatory TERRANCE S WOODARD Not Available Start: 07-24-2023 End: 07-24-2023 ambulatory JASON JENSEN Not Available Start: 07-10-2023 End: 07-10-2023 ambulatory TERRANCE S WOODARD Not Available Start: 06-26-2023 End: 06-26-2023 Patient encounter procedure DO Karen Cardoso Work Phone: [facility] Work Phone: Start: 06-25-2023 End: 06-25-2023 ambulatory MILAGROS LAI Not Available Start: 06-23-2023 Registered Recurring DO Karen Cardoso Work Phone: [facility] Start: 06-23-2023 Non-patient / Non-visit DO Saurabh Cardoso Work Phone: [facility] [employer] Work Phone: Start: 06-16-2023 End: 06-16-2023 ambulatory SHERYL COOPER Not Available Start: 06-13-2023 End: 06-13-2023 ambulatory DO Karen Cardoso Work Phone: [facility] Work Phone: Start: 06-13-2023 End: 06-13-2023 Patient encounter procedure DO Karen Cardoso Work Phone: [facility] Work Phone: Start: 05-14-2023 End: 05-14-2023 ambulatory Finn Ortez II Other [facility] [employer] Other Start: 05-14-2023 Office outpatient vi sit 15 minutes Finn Trumbull II [facility] Start: 05-14-2023 End: 05-14-2023 Patient encounter procedure DO Karen Cardoso Work Phone: [facility]- Start: 04-15-2023 End: 04-15-2023 ambulatory Karen Cardoso Other [facility] [employer] Other Start: 04-15-2023 Telephone encounter Karen Cardoso [facility] Start: 03-18-2023 Registered Recurring DO Karen Cardoso Work Phone: [facility] Start: 01-09-2023 End: 01-09-2023 ambulatory Karen Cardoso Other [facility] Other Start: 01-09-2023 Telephone encounter Karen Cardoso [facility] Start: 12-17-2022 End: 12-17-2022 ambulatory Karen Cardoso Other [facility] Other Start: 12-17-2022 Telephone encounter Karen Cardoso [facility] Start: 12-13-2022 End: 12-13-2022 ambulatory Karen Cardoso Other [facility] Other Start: 12-13-2022 Telephone encounter Karen Cardoso [facility] Start: 12-12-2022 End: 12-12-2022 ambulatory Karen Cardoso Other [facility] Other Start: 12-12-2022 Office outpatient vi sit 25 minutes Karen Cardoso [facility] Start: 09-02-2022 End: 09-02-2022 ambulatory Karen Cardoso Other [facility] Other Start: 09-02-2022 Telephone encounter Karen Cardoso [facility] Start: 08-27-2022 End: 08-27-[address] KAREN CARDOSO Facility: Start: 08-01-2022 End: 08-01-2022 ambulatory Karen Cardoso Other [facility] Other Start: 08-01-2022 Telephone encounter Karen Cardoso [facility] Start: 07-18-2022 End: 07-18-2022 ambulatory Finn Ortez II Other [facility] Other Start: 07-18-2022 Telephone encounter Finn Ortez II [facility] Start: 07-12-2022 FQHC visit new patient Finn hollingsworth II [facility] Start: 07-12-2022 End: 07-12-2022 ambulatory DO Karen Cardoso Work Phone: [facility] Work Phone: Start: 07-12-2022 End: 07-12-2022 Patient encounter procedure DO Karen Cardoso Work Phone: [facility] Start: 06-13-2022 End: 06-13-2022 ambulatory Karen Cardoso Other [facility] Other Start: 06-13-2022 Office outpatient vi sit 15 minutes Karen Cardoso [facility] [place] Start: 03-12-2022 Telephone encounter Karen Cardoso [facility] [place] Start: 03-12-2022 End: 03-13-[address] MELENDEZ LISTED REQUEST [facility] Other Start: 03-06-2022 End: 03-06-2022 ambulatory Karen Cardoso Other [facility] Other Start: 03-06-2022 Telephone encounter Karen Cardoso [facility] [place] Start: 02-12-2022 End: 02-12-2022 ambulatory Karen Cardoso Other [facility] Other Start: 02-12-2022 Telephone encounter Karen Cardoso [facility] [place] Start: 02-07-2022 Telephone encounter Karen Cardoso [facility] [place] Start: 02-07-2022 End: 02-08-[address] KAREN CARDOSO [facility] Other Start: 12-06-2021 End: 12-06-2021 ambulatory Karen Cardoso Other [facility] Other Start: 12-06-2021 Office outpatient vi sit 25 minutes Karen Cardoso [facility] [place] Start: 12-03-2021 End: 12-03-2021 ambulatory Karen Cardoso Other [facility] Other Start: 12-03-2021 Telephone encounter Karen Cardoso [facility] [place] Start: 11-28-2021 End: 11-29-[address] NONE LISTED REQUEST Facility: Start: 02-06-2021 End: 02-10-2021 ambulatory KAREN CARDOSO [facility] Start: 06-05-2020 End: 06-05-2020 Orders Only Annmarie Xavier Work Phone: [facility] Start: 05-23-2020 End: 05-23-2020 Office outpatient visit 15 minutes Chito Land Work Phone: [facility] Comment on above: Primary osteoarthrit is of right hip (Primary Dx); Greater trochanteric bursitis of right hip Start: 05-02-2020 End: 05-02-2020 Patient encounter procedure Chito Land Work Phone: [facility] Comment on above: Primary osteoarthrit is of right hip (Primary Dx); Greater trochanteric bursitis of right hip Start: 04-27-2020 End: 04-27-2020 Subsequent hospital visit by physician Chito Land Work Phone: [facility] Comment on above: Arrived Start: 04-27-2020 End: 04-27-2020 Office outpatient new 30 minutes Chito Land Work Phone: [facility] Comment on above: Primary osteoarthrit is of right hip (Primary Dx); Greater trochanteric bursitis of right hip; Right hip pain Start: 07-27-2018 End: 07-27-2018 Patient encounter procedure PAYTON JAMES [facility] Start: 07-27-2018 End: 07-27-2018 Office outpatient visit 15 minutes Payton James Work Phone: [facility] Comment on above: Acute swimmer's ear of both sides (Primary Dx) Start: 06-21-2018 End: 06-21-2018 Refill Payton James Work Phone: [facility] Start: 06-16-2018 End: 06-16-2018 Refill Payton James Work Phone: [facility] Start: 05-11-2018 Patient encounter procedure GIBSLAND Felipa JAMES [facility] Start: 05-11-2018 End: 05-11-2018 Office outpatient visit 15 minutes Payton Samaniegomaishasaige Work Phone: [facility] Comment on above: Recurrent major depr essive disorder, in partial remission (Primary Dx); Anxiety Start: 04-09-2018 End: 04-09-2018 Patient encounter procedure Pretty Lovell [facility] Comment on above: Prescription Clarifi cation Start: 04-08-2018 End: 04-08-2018 Patient encounter procedure Other Other [facility] Start: 03-30-2018 End: 03-30-2018 Patient encounter procedure Provider Sebas [facility] Start: 03-30-2018 End: 03-30-2018 Office outpatient visit 15 minutes Payton Samaniegomaishasaige Work Phone: [facility] Comment on above: Recurrent major depr essive disorder, in partial remission (Primary Dx); Anxiety Start: 03-25-2018 End: 03-25-2018 Patient encounter procedure Payton James Work Phone: [facility] Comment on above: Medication Managemen t Start: 03-21-2018 End: 03-21-2018 Refill Payton James Work Phone: [facility] Start: 03-12-2018 [facility] Start: 03-12-2018 End: 03-12-2018 Patient encounter procedure Paytonkimo James Work Phone: [facility] Comment on above: Arrived Start: 03-03-2018 Patient encounter procedure GIBSLAND Felipa JAMES [facility] Start: 02-25-2018 [facility] Start: 12-05-2017 Patient encounter J Kristopher Birch [facility] ity:[place]dy Start: 12-05-2017 End: 12-05-2017 Patient encounter Isidro Birch Work Phone: [facility] Start: 12-05-2017 End: 12-05-2017 Office outpatient visit 10 minutes Isidro Birch Work Phone: [facility] Start: 11-07-2017 Patient encounter Sendy Preston ity:[place] Start: 11-07-2017 End: 11-07-2017 Patient encounter Isidro Birch Work Phone: [facility] Start: 11-07-2017 End: 11-07-2017 Office outpatient visit 10 minutes Isidro Birch Work Phone: [facility] Start: 10-08-2017 End: 10-09-2017 Ambulatory Isidro Birch Work Phone: [facility] Start: 10-08-2017 End: 10-08-2017 Office outpatient visit 15 minutes Isidro Birch Work Phone: [facility] Start: 10-08-2017 End: 10-08-2017 Ambulatory Isidro Birch Work Phone: [facility] Start: 09-15-2017 End: 09-15-2017 Emergency department patient visit MILFORD [facility] Start: 05-27-2017 End: 05-27-2017 Ambulatory DESIRE BRITT [facility] Start: 02-18-2017 Ambulatory CHIKI QUINTERO [facility] Start: 11-07-2016 End: 11-08-2016 Ambulatory [facility] Start: 12-13-2014 Patient encounter DESIRE MOREJON [facility] Procedures Date Procedure Procedure Detail Performing Clinician Start: 01-21-2024 Plain X-ray of right hip DO Karen Cardoso Work Phone: Start: 01-05-2024 Total replacement of right hip joint DO Karen Cardoso Work Phone: Start: 01-05-2024 Plain X-ray of right hip DO Karen Cardoso Work Phone: Start: 01-05-2024 Plain X-ray of right hip DO Karen Cardoso Work Phone: Start: 12-22-2023 Antibody screen Karen iqbal Comment on above: Order Comment: Date of Surgery: [id number] Result Comment: PERF ORMED BY: [facility] [place] [address] PATHOLOGIST [employer] K[employer]TER KOMAL COFFMAN M.D. Start: 11-19-2023 Methicillin resistan t Staphylococcus aureus culture DO Karen Cardoso Work Phone: Start: 09-15-2023 Urine culture DO Karen Cardoso Work Phone: Start: 06-13-2023 Plain X-ray of right hip DO Karen Cardoso Work Phone: Start: 07-12-2022 Plain X-ray of right hip DO Karen Cardoso Work Phone: Start: 05-02-2020 Arthrocentesis aspir &/inj major jt/bursa w/us Chito S Emery Work Phone: Start: 03-13-2018 Mammography BUCYRUS NO N-PATIENT FAIRS Start: 10-08-2016 Colonoscopy Annmarie lee Start: 03-25-2016 Mammography Annmarie bowerna Start: 01-24-2015 Colonoscopy Historical Provider Plan of Treatment Date Care Activity Detail Author Start: 03-10-2027 Tetanus [facility] Start: 10-08-2026 [facility] Start: 10-08-2026 Screening for malign ant neoplasm of colon [facility] Start: 01-21-2024 Plain X-ray of right hip XR hi p RT min 2V(w/wo pelvis)* [facility] Start: 01-21-2024 XR Hip - right 2 Views [facility] Start: 01-05-2024 [facility] Start: 01-05-2024 Hospital admission [facility] Start: 01-05-2024 Plain X-ray of right hip XR lo w pelvis w/RT x-table hip [facility] Start: 01-05-2024 XR Hip - right GE 2 Views [facility] Start: 01-05-2024 [facility] Start: 01-05-2024 Physical therapy procedure [facility] Start: 12-22-2023 [facility] Start: 11-19-2023 MRSA Culture MRSA Culture [facility] Start: 11-19-2023 Methicillin resistan t Staphylococcus aureus [Presence] in Unspecified specimen by Organism specific culture [facility] Start: 11-19-2023 [facility] Start: 09-15-2023 Bacteria identified in Urine by Culture [facility] Start: 09-15-2023 [facility] Start: 06-13-2023 Plain X-ray of right hip XR hi p RT min 2V(w/wo pelvis)* [facility] Start: 06-13-2023 XR Hip - right 2 Views [facility] Start: 11-27-2021 DEXA SCAN DEXA SCAN [facility] Work Phone: Start: 05-23-2020 End: 05-23-2020 Office Visit 05/23/2020 Office Visit Orthopaedics Chito Land MD [address] [place] [address] [phone] [facility] Start: 05-02-2020 End: 05-02-2020 Office Visit 05/02/2020 Office Visit Orthopaedics Chito Land MD [address] [place] [address] [place] [address] [phone] [facility] Start: 12-28-2019 Influenza vaccination INFLUENZA VACC INE (#1) [facility] Start: 12-28-2019 Influenza vaccinatio n given Sequential Influenza Vaccine (#1) [facility] Start: 10-07-2019 Pneumococcal vaccination [facility] Start: 03-12-2019 Protein mass conc MAMMOGRAM SC REENING DISCUSSION [facility] Work Phone: Start: 03-12-2019 Screening mammography MAMMOGRA M SCREENING DISCUSSION [facility] Start: 05-11-2018 End: 05-11-2018 Ambulatory 05/11/2018 Office Visit Family Medicine Payton James MD [address] [place] [address] [phone] [facility] Start: 03-30-2018 End: 03-30-2018 Ambulatory [facility] Comment on above: Arrived Start: 12-27-2017 Influenza vaccination SEQUENTI AL INFLUENZA VACCINE (#1) [facility] Start: 12-05-2017 End: 12-05-2017 Ambulatory 12/05/2017 Office Visit [place] [address] [place] [address] [phone] [facility] Start: 11-07-2017 End: 11-07-2017 Ambulatory 11/07/2017 Office Visit [place] [address] [place] [address] [phone] [facility] Start: 04-29-2017 Protein mass conc MAMMOGRAM SC REENING DISCUSSION [facility] Work Phone: Start: 04-29-2017 Screening for malign ant neoplasm of cervix [facility] Work Phone: Start: 03-25-2017 Screening mammography Mammogram O [facility] Start: 03-05-2017 History and physical examination, annual for health maintenance Wellness [facility] Start: 01-25-2016 Colonoscopy COLORECTAL CAN CER SCREENING DISCUSSION [facility] Start: 01-25-2016 Protein mass conc COLON CANCER SCREENING DISCUSSION [facility] Start: 12-14-2015 Screening for malign ant neoplasm of colon Fecal occult blood test (FOBT,FIT) [facility] Start: 2014 Zoster vaccine hzv l esteban for subcutaneous use ZOSTER VACCINE [facility] Start: 2004 Administration of he rpes zoster vaccine Zoster Vaccines (1 of 2) [facility] Start: 2004 Colonoscopy COLON CANCER S CREENING DISCUSSION [facility] Start: 2004 Protein mass conc COLON CANCER SCREENING DISCUSSION [facility] Work Phone: Start: 2004 Screening for malign ant neoplasm of colon [facility] Start: 2004 Zoster vaccine hzv l esteban for subcutaneous use ZOSTER (SHINGLES) VACCINE (1 of 2) [facility] Start: 1994 Fasting lipid profile LIPID SCREENIN G [facility] Work Phone: Start: 1973 Third diphtheria, tetanus and acellular pertussis (DTaP) vaccination TDAP (ADULT) [facility] Work Phone: Start: 1972 Hepatitis C antibody , confirmatory test Hepatitis C Screening [facility] Start: 1972 Tetanus vaccination TETANUS [facility] Work Phone: Start: 1970 COVID-19 Vaccine (1 of 2) COVID-19 Vaccine (1 of 2) [facility] Start: 1969 HIV screening HIV Screening [facility] Start: 10-07-1967 HIV screening HIV SCREENING DISCUSSION [facility] Work Phone: Start: 1954 Fall risk assessment Falls Risk Asse ssment [facility] Start: 1954 End: 1954 Hepatitis C antibody, confirmatory test HEPATITIS C VIRUS SCREENING [facility] Work Phone: Start: 1954 HEPATITIS C SCREENING HEPATITIS C SC REENING [facility] Start: 1954 Screening for malign ant neoplasm of cervix PAP SMEAR [facility] Bacteria identified in Urine by Culture [facility] Comprehensive metabo lic 1999 panel - Serum or Plasma [facility] Comprehensive metabo lic 1999 panel - Serum or Plasma [facility] Cotinine [Mass/volum e] in Serum or Plasma [facility] Glucose measurement estimated from glycated hemoglobin [facility] Hemoglobin [Mass/vol ume] in Blood [facility] End: 03-12-2018 MG Breast Views MAMMO SCREENING BILATERAL Routine Screening for breast cancer 1 Occurrences starting 03/12/2018 until 03/12/2018 [facility] Work Phone: Comment on above: 1 Occurrences starti ng 03/12/2018 until 03/12/2018 MG Breast Views MAMMO SCREENING BILATERAL Routine Screening for breast cancer 03/12/2018 1:05 PM [facility] Work Phone: Nicotine [Mass/volum e] in Serum or Plasma [facility] Patient Education Know your Meds [facility] Work Phone: End: 04-27-2020 Radiography of hip XR HIP WITH PELVIS RIGHT Imaging Routine Right hip pain 1 Occurrences starting 04/27/2020 until 04/27/2020 [facility] Comment on above: 1 Occurrences starti ng 04/27/2020 until 04/27/2020 Radiography of hip XR HIP WITH P JEFF RIGHT Imaging Routine Right hip pain 04/27/2020 9:13 AM [facility] End: 10-08-2017 XR Wrist Right 3+ Views (Standard) XR Wrist Right 3+ Views (Standard) Routine Left wrist pain Once for 1 Occurrences starting 10/08/2017 until 10/08/2017 [facility] XR Wrist Right 3+ Vi ews (Standard) XR Wrist Right 3+ Views (Standard) Routine Left wrist pain 10/08/2017 2:17 PM EDT [facility] Immunizations Immunization Date Immunization Notes Care Provider Alexia tracey 01-29-2021 COVID-19 mRNA, Comirnaty (Pfizer) DO Karen Cardoso Work Phone: [facility] 07-18-2020 COVID-19 Vaccine Pfi zer - Documentation Purposes Only Karen Cardoso Other [facility] 06-26-2020 COVID-19 Vaccine Pfi zer - Documentation Purposes Only Karen Cardoso Other [facility] 03-03-2018 influenza virus vaccine, unspecified formulation Chito Land [facility] 03-10-2017 diphtheria, tetanus toxoids and acellular pertussis vaccine, unspecified formulation Annmarie Xavier [facility] 03-10-2017 tetanus toxoid, redu jim diphtheria toxoid, and acellular pertussis vaccine, adsorbed Isidro Queta [facility] 08-26-2013 tetanus toxoid, redu jim diphtheria toxoid, and acellular pertussis vaccine, adsorbed Annmarie Duc [facility] 01-26-2010 zoster vaccine, live DO Ronak Cardoso Work Phone: [facility] Payers Date Payer Category Payer Medicare MEDICARE ANTHEM HMO OR PPO MEDICARE ANTHEM HMO OR PPO xxxxxxxxxxxx 2017-Present [id number] 2017 Medicare [id number] 2015 Medicare [id number] 1959 Medicare [id number] 1959 Self-pay [id number] 1954 Unknown [id number] 2.16.840.1.975808.3.579.2.983 1954 Unknown [id number] 2.16.840.1.691915.3.579.2.903 1954 Unknown [id number] 2.16.840.1.618139.3.579.2.593 1954 Unknown [id number] 2.16.840.1.571522.3.579.2.593 1954 Unknown [id number] 2.16.840.1.690249.3.579.2.593 1954 Unknown [id number] 2.16.840.1.062108.3.579.2.125 9 1954 Unknown [id number] 2.16.840.1.974203.3.579.2.125 9 1954 Unknown [id number] 2.16.840.1.259343.3.579.2.125 9 1954 Unknown [id number] 2.16.840.1.715899.3.579.2.125 9 1954 Unknown [id number] 2.16.840.1.696784.3.579.2.125 9 1954 Unknown [id number] 2.16.840.1.580329.3.579.2.125 9 1954 Unknown [id number] 2.16.840.1.907987.3.579.2.125 9 1954 Unknown [id number] 2.16.840.1.998076.3.579.2.125 9 1954 Unknown [id number] 2.16.840.1.793593.3.579.2.125 9 Unknown [facility] [id number] Unknown [id number] 2.16.840.1.673990.3.579.2.593 Unknown [id number] 2.16.840.1.046657.3.579.2.593 Unknown [id number] 2.16.840.1.695765.3.579.2.593 Unknown [id number] 2.16.840.1.721791.3.579.2.531 Unknown [id number] 2.16.840.1.541788.3.579.2.531 Unknown [id number] 2.16.840.1.178565.3.579.2.531 Unknown [id number] 2.16.840.1.979915.3.579.2.531 Unknown [id number] 2.16.840.1.288966.3.579.2.531 Unknown [id number] 2.16.840.1.929601.3.579.2.531 Unknown [id number] 2.16.840.1.314329.3.579.2.531 Unknown [id number] 2.16.840.1.778871.3.579.2.531 Social History Date Type Detail Facility Start: 10-08-2017 End: 01-05-2024 Tobacco smoking status NHIS Never smoker [facility] Sex Assigned At Not on file [facility] Start: 03-03-2018 Alcohol Comment [facility] Start: 12-05-2017 End: 04-27-2020 Tobacco use and exposure Never used [facility] Start: 12-05-2017 End: 04-27-2020 Alcohol intake [facility] (finding[facility] Start: 09-25-2016 Alcohol Comment SOCIAL [facility] Sex Assigned At Sex Assigned At [facility] Other Start: 1955 Sex Assigned At Female [facility] NEGATED: Highlighted row [facility] Medical Equipment Procedure Code Equipment Code Equipment Origin al Text Equipment Identifier Dates Arthroplasty, hip, total, anterior approach Acetabular shell [id number] FDA Start: 01-05-2024 Arthroplasty, hip, total, anterior approach Orthopaedic bone screw, non-bioabsorbable, sterile ()[id number] FDA Start: 01-05-2024 Arthroplasty, hip, total, anterior approach Orthopaedic bone screw, non-bioabsorbable, sterile ()[id number] FDA Start: 01-05-2024 Arthroplasty, hip, total, anterior approach Orthopaedic bone screw, non-bioabsorbable, sterile ()[id number] FDA Start: 01-05-2024 Arthroplasty, hip, total, anterior approach Ceramic femoral head prosthesis ()[id number] FDA Start: 01-05-2024 Arthroplasty, hip, total, anterior approach Coated hip femur prosthesis, modular ()[id number] FDA Start: 01-05-2024 Arthroplasty, hip, total, anterior approach Non-constrained polyethylene acetabular liner ()[id number] [facility] Start: 01-05-2024 Goals Date Patient Goal Desired Activity /State Clinical Notes 06-11-2021 to 12-12-2023 Note Date & Type Note Facility 12-12-2023 Evaluation note Authored December 12, 2023 10:00am The above note written by __ _Lina Bay____ acting as human recorder, note dictated by Dr. Armijo .I performed the above HPI, ROS, and Examination. I formulated and dictated the treatment plan and was present for entire encounter. Karen Cardoso D.O. [facility] Work Phone: 1(983) 453-346105-20-2024 Evaluation note* Author Karen Cardoso [facility] Authored September 15, 2023 2:26p m The above note written by __ _Lina Bay____ acting as human recorder, note dictated by Dr. Armijo .I performed the above HPI, ROS, and Examination. I formulated and dictated the treatment plan and was present for entire encounter. Karen Cardoso D.O. [facility] Work Phone: 1(674) 408-445102-29-2024 Evaluation note* Author Karen Cardoso [facility] Authored June 26, 2023 10:58am The above note written by __ _Lina Bay____ acting as human recorder, note dictated by Dr. Armijo .I performed the above HPI, ROS, and Examination. I formulated and dictated the treatment plan and was present for entire encounter. Karen Cardoso D.O. [facility] Work Phone: 1(781) 267-639402-29-2024 Evaluation note* Author Karen Cardoso [facility] Authored June 26, 2023 10:58am The above note written by __ _Lina Bay____ acting as human recorder, note dictated by Dr. Armijo .I performed the above HPI, ROS, and Examination. I formulated and dictated the treatment plan and was present for entire encounter. Karen Cardoso D.O. Author Karen Cardoso [facility] Authored September 15, 2023 2:26p m The above note written by __ _Lina Bay____ acting as human recorder, note dictated by Dr. Armijo .I performed the above HPI, ROS, and Examination. I formulated and dictated the treatment plan and was present for entire encounter. Karen Cardoso D.O. [facility] Work Phone: 1(753) 664-519501-17-2024 Evaluation note* Encounter Date Diagnosis Assessment Notes [...] oral anti-inflammatorie s and Tylenol. Recommended utilizing [id number] oral anti-inflammatorie s. Recommended adjusting their Tylenol [...] injection well. 5. Follow up as needed [facility] Other 09-14-2023 Evaluation note* Encounter Date Diagnosis Assessment Notes Treatment Notes Treatment Clinical Notes Dec, Bipolar depression (ICD-10 - F31.9) [facility] Other 08-18-2023 Evaluation note* Encounter Date Diagnosis Assessment Notes Treatment Notes Treatment Clinical Notes Nov, Bipolar depression (ICD-10 - F31.9) Nov, Hyperlipidemia (ICD-10 - E78.5) [place] [facility] Other 08-17-2023 Evaluation note* Encounter Date Diagnosis [...] that she was seeing a [facility] but has not seen her in over [...] Weight loss (ICD-10 - R63.4) Nov, 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 [facility] Other 02-16-2023 Evaluation note* Encounter Date Diagnosis [...] hip She would like to see an pharmacy customer care specialist for her right hip. She had [...] her white blood cell count. 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 May, Other I did provide h er with a lab order today to have labs drawn prior to her appointment in November (2022). If she decides to have outreach lab drawn through the [facility] she should call and we will give her an order for just an AST/ALT. We discussed how much Calcium she should be taking, I did recommend she take [id number] daily. Recommend Calcium Citrate. [facility] Other 11-09-2022 Evaluation note* Encounter Date Diagnosis Assessment Notes Treatment Notes Treatment Clinical Notes Feb, Hyperlipidemia (ICD-10 - E78.5) [facility] Other 10-18-2022 Evaluation note* Encounter Date Diagnosis [...] then we would refer her to a desizing machine back tender. 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 [facility] Other 02-14-2022 NoteHISTORY: Bone density screening. COMPARISON: [...] and signed by Trell Martin on 06/11/2021 1237[facility] [place] Medical SpecialistChief complaint+Reason for visit Narrative* Chief Complaint 2 MONTHS WANTS TO DI SCUSS SURGERY m16.11 z79.899 m81.0 review labs/medical clearance Hip pain Reason for Visit Primary osteoarthrit is of right hip Bipolar depression Encounter for pre-operative examination Hyperglycemia Hyperlipidemia Primary osteoarthritis of right hip Weight loss [facility] Work Phone: Chief complaint+Reason for visit Narrative* Chief Complaint 2 MONTHS WANTS TO DI SCUSS SURGERY m16.11 z79.899 m81.0 review labs/medical clearance Hip pain Preop - R JASON H&P RTHA Reason for Visit Primary osteoarthrit is of right hip Bipolar depression Encounter for pre-operative examination Hyperglycemia Hyperlipidemia Primary osteoarthritis of right hip Weight loss Primary osteoarthritis of right hip [facility] Work Phone: Chief complaint+Reason for visit Narrative* Chief Complaint 2 MONTHS WANTS TO DI SCUSS SURGERY m16.11 z79.899 m81.0 review labs/medical clearance Hip pain Preop - R JASON H&P RTHA Prolonged Reason for Visit Primary osteoarthrit is of right hip Bipolar depression Encounter for pre-operative examination Hyperglycemia Hyperlipidemia Primary osteoarthritis of right hip Weight loss Primary osteoarthritis of right hip [facility] Work Phone: Chief complaint+Reason for visit Narrative* Chief Complaint 2 MONTHS WANTS TO DI SCUSS SURGERY m16.11 z79.899 m81.0 review labs/medical clearance Hip pain Preop - R JASON H&P RTHA Prolonged Hip pain Hip pain Reason for Visit Primary osteoarthrit is of right hip Bipolar depression Encounter for pre-operative examination Hyperglycemia Hyperlipidemia Primary osteoarthritis of right hip Weight loss Primary osteoarthritis of right hip [facility] Work Phone: Chief complaint+Reason for visit Narrative* Chief Complaint 2 MONTHS WANTS TO DI SCUSS SURGERY m16.11 z79.899 m81.0 review labs/medical clearance Hip pain Preop - R JASON H&P RTHA Prolonged Hip pain Hip pain 2 WK POST OP RTHA Z96.641 - Presence of right artificial hip joint Reason for Visit Primary osteoarthrit is of right hip Bipolar depression Encounter for pre-operative examination Hyperglycemia Hyperlipidemia Primary osteoarthritis of right hip Weight loss Primary osteoarthritis of right hip Aftercare following right hip joint replacement surgery Status post right hip replacement [facility] Work Phone: Evaluation noteNo InformationNort Friendly Score Other Evaluation noteNo assessment information available [facility] Work Phone: Evaluation note* Diagnosis Onset Date Resolution Status Greater trochanteric bursitis of right hip acute Primary osteoarthritis of right hip acute [facility] Work Phone: History general Narrative - [...] Dr. Wu 02/23/2020 Hospitalization History see above [facility] Other History general Narrative - Reported* Type [...] repeat in 202902/23/2020 Hospitalization History see above [facility] Other Assessments Diagnosis Left wrist pain Pain [...] Age at Onset Recorded Date/T courtney father Alzheimer's dementia Unknown Unknown Family history of mental disorder Unknown mother Family history of lung cancer Unknown sister Diabetes mellitus Unknown Malignant neoplasm of breast Unknown Advance Directives No Advanced Directives Records [...] effective but gave her migraines. In addition, anotnino notes more obsessive compulsive behaviors that are [...] it is not working. 2. Anxiety * [place] - 03/30/2018 1:10 PM EST Antonino is [...] findings. Additions if any: Chito Land MD, [facility] Gambling Supervisor - [facility] * HunterRachna - 05/02/2020 12:40 PM EST Associated Order(s): [...] from the last injection. Chito Land MD, [facility] Gambling Supervisor - [facility] * Corinne Shaffer [...] problem Treat with steroids and antibiotics. * MEMOALLIE REYNOLDSHANIE - 07/27/2018 8:50 AM EDT Antonino is [...] findings. Additions if any: Chito Land MD, [facility] Gambling Supervisor - [facility] * Corinne Shaffer [...] Procedures MAMMO SCREENING BILATERAL Payton James MD [address] [place] [address] Reason appt 07/12/22 at 10am pt needs consult to discuss right hip pain Diagnosis 1 Hip pain (M25.559) Referral Organization [facility] [employer] Aly Sosa Referring Provider First Name Karen Referring Provider Last Name Walker Referring Provider Specialty Family Prac ernie Referred Organization [facility] Referred Provider Finn Ortez II Referred Address [address] [place],[address] Referred Provider Specialty Orthopedic S urgery Referral [...] 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 pt understands that she will be contacted to schedule this appt. Reason appt audiology con mayank for decreased hearing Diagnosis 1 Decreased hearing (H 91.90) Referral Organization [facility] Family Aly Sosa Referring Provider First Name Karen Referring Provider Last Name Walker Referring Provider Specialty Family Prac ernie Referred Organization [facility] Referred Address ,[place], [place],[address] Referred Provider Specialty Audiologists Referral Priority Routine General Notes Shreyl Engle 04/15/2023 10:18:38 AM > referral faxed [...] Complaint r35.0 r30.0 possible UTI 3 months 2 MONTHS WANTS TO DISCUSS SURGERY m16.11 z79.899 m81.0 review labs/medical clearance Reason for Visit Dysuria Urinary frequency Primary osteoarthritis of right hip Primary osteoarthritis of right hip Bipolar depression Encounter for pre-operative examination Hyperglycemia Hyperlipidemia Primary osteoarthritis of right hip Weight loss Additional Source Comments INFORMATION SOURCE (unrecogn ized section and content) DATE CREATED AUTHOR [facility] DATE CREATED AUTHOR AUTHOR'S ORGANIZ ATION 10/24/2017 [facility] DATE CREATED AUTHOR AUTHOR'S ORGANIZ ATION 11/12/[address] [facility] [place] [place] [facility] DATE CREATED AUTHOR AUTHOR'S ORGANIZ ATION 11/12/2017 [facility] DATE CREATED AUTHOR AUTHOR'S ORGANIZ ATION 12/20/2017 [facility] DATE CREATED AUTHOR AUTHOR'S ORGANIZ ATION 04/06/2018 [facility] DATE CREATED AUTHOR AUTHOR'S ORGANIZ ATION 07/30/[facility] DATE CREATED AUTHOR AUTHOR'S ORGANIZ ATION 02/10/2021 [facility] DATE CREATED AUTHOR AUTHOR'S ORGANIZ ATION 06/11/2021 [facility] Special[facility] DATE CREATED AUTHOR AUTHOR'S ORGANIZ ATION 08/28/2022 [facility] DATE CREATED AUTHOR AUTHOR'S ORGANIZ ATION 09/10/2023 [facility] EPIC DATE CREATED AUTHOR AUTHOR'S ORGANIZ ATION 01/23/2024 [facility] Reason for Visit (unrecogniz ed section and content) Reason Comments Medication Management Reason Comments Medication Refill Reason Comments Prescription Clarification Status Reason Specialty Diagnoses / Procedures Referre d By Contact Referred To Contact Closed Diagnoses Screening for breast cancer Procedures MAMMO SCREENING BILATERAL Payton James MD [address] [place] [address] Reason Comments Depression Antonino feels pretty g [...] 13, 2023 End: June 13, 2023 Finn Oretz II, MD Attending Provider Active Start: June 13, 2023 End: June 13, 2023 Team Status: Active Member Role Status Almita Cardoso DO Primary Care Provider Active S tart: June 13, 2023 Finn Ortez II, MD Attending Provider Active Start: June 13, 2023 Team Status: Inactive Member Role Status Almita Cardoso DO Primary Care Provider Active Finn [...] Status: Inactive Member Role Status Dates Karen Girvin , DO Primary Care Provide r, Attending Provider Active Start: June 26, 2023 End: June 26, 2023 Team Status: Active Member Role Status Almita Cardoso DO Primary Care Provide r, Attending Provider Active Start: September 15, 2023 Team Status: Active Member Role Status Almita Cardoso DO Primary Care Provider Active S tart: November 20, 2023 Floyd Hampton MD Attending Provider Active Start: November 20, 2023 Team Status: Active Member Role Status Almita Cardoso DO Primary Care Provide r, Attending Provider Active Start: December 06, 2023 Team Status: Inactive Member Role Status Almita Cardoso DO Primary Care Provide r, Attending Provider Active Start: December 12, 2023 End: December 12, 2023 Team Status: Active Member Role Status Almita Cardoso DO Primary Care Provide r, Attending Provider Active Start: December 19, 2023 Team Status: Inactive Member Role Status Almita Cardoso DO Primary Care Provider Active S tart: December 22, 2023 End: December 22, 2023 Finn Ortez II, MD Attending Provider Active Start: December 22, 2023 End: December 22, 2023 Team Status: Active Member Role Status Almita Cardoso DO Primary Care Provider Active S tart: December 25, 2023 Finn Ortez II, MD Attending Provider Active Start: December 25, 2023 Team Status: Inactive Member Role Status Almita Cardoso DO Primary Care Provider Active S tart: December 25, 2023 End: December 25, 2023 Finn Ortez II, MD Attending Provider Active Start: December 25, 2023 End: December 25, 2023 Team Status: Inactive Member Role Status Almita Cardoso DO Primary Care Provider Active S tart: December 26, 2023 End: December 26, 2023 Finn Ortez II, MD Attending Provider Active Start: December 26, 2023 End: December 26, 2023 Team Status: Active Member Role Status Almita Cardoso DO Primary Care Provider Active S tart: December 30, 2023 Floyd Hampton MD Attending Provider Active Start: December 30, 2023 Team Status: Inactive Member Role Status Almita Jones aWlker DO Primary Care Provider Active S tart: January 05, 2024 End: January 05, 2024 Finn Ortez II, MD Attending Provider Active Start: January 05, 2024 End: January 05, 2024 Team Status: Active Member Role Status Dates Karen Serranosrinivas DO Primary Care Provider Active S tart: January 05, 2024 Finn Ortez II, MD Attending Luke robertson, Other Provider Active Start: January 05, 2024 Team Status: Active Member Role Status Dates Karen Maggiesrinivas DO Primary Care Provider Active S tart: December 19, 2023 Alcides Haddad DO Attending Provider Active Sta rt: December 19, 2023 Team Status: Inactive Member Role Status Dates Karen Serraonsrinivas DO Primary Care Provider Active S tart: January 21, 2024 End: January 21, 2024 Finn Ortez II, MD Attending Provider Active Start: January 21, 2024 End: January 21, 2024 Team Status: Active Member Role Status Dates Karen Serranosrinivas Primary Care Provider Active S tart: January 21, 2024 Finn Ortez II, MD Attending Provider Active Start: January 21, 2024 Goals (unrecognized section and content) Goals may [...] BE BASED ON THE PRIMARY CLINICAL RECORDS. [employer] provides no warranty or guarantee of the accuracy or completeness of information in this document.
[2024-02-05 12:10] LABS: Bilirubin Urine NEGATIVE (NEGATIVE); Blood Urine TRACE-I (NEGATIVE); Clarity Urine CLEAR (CLEAR); Color Urine LT. YELLOW (YELLOW); Glucose Urine UA NEGATIVE (NEGATIVE); Ketones Urine NEGATIVE (NEGATIVE); Leukocyte Esterase Urine NEGATIVE (NEGATIVE); Nitrite Urine NEGATIVE (NEGATIVE); Protein Urine NEGATIVE (NEG/TRACE); Specific Gravity Urine <=1.005 (1.005-1.025); Urobilinogen Urine 0.2 EU/dL (0.2-1.0)
[2024-02-05 12:17] LABS: Bacteria Urine TRACE #/HPF (NONE SEEN); Cast Seen? NONE SEEN #/LPF (NONE SEEN); Crystals Seen? None Seen #/HPF (None Seen); Mucus Urine NONE SEEN (NONE SEEN); RBC Urine NONE SEEN #/HPF (0-2); Squamous Epithelial Cell Urine RARE #/LPF (NONE/RARE); Urine Culture Indicated NO; WBC Urine NONE SEEN #/HPF (NONE SEEN)
== END 2024-02-05 11:50 | disposition home or self-care (01) ==
LOC: LAB 11:50
PROVIDERS: PCP Family Medicine; Visit Provider Family Medicine
DX: R35.0 Frequency of micturition (principal); R30.0 Dysuria
CPT/HCPCS: 81001; 87086

== ENCOUNTER 2024-04-20 18:02 | Emergency (ER) | payer MEDICARE, SELFPAY ==
[2024-04-20 18:07] VITALS: BP 150/82; PULSE 94; TEMP 36.7; O2SAT 96; BMI 25.0
--- OUTSIDE RECORDS SUMMARY | 2024-04-20 18:07 | XMS_ITS | CCD ---
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 Name Role Phone Desire Britt Unavailable [phone] DESIRE BRITT Unavailable Unavailab CHIKI Bagley Unavailable Autumn vailable CHIKI BRITT Unavailable Autumn vailable DESIRE BRITT Unavailable Unavailab le HAY, AMI Unavailable Unavailable HAY, AMI Unavailable Unavailable UNKNOWN, PROVIDER Unavailable Unavailable DESIRE BRITT Unavailable Unavailable ISIDRO BIRCH Unavailable Unavailable QUETAISIDRO Gurrola Unavailable Unavailable DESIRE BRITT Unavailable Unavailab le QUETAISIDRO Gurrola Unavailable Unavailable RERICKY CARPENTER Unavailable Unavailable ISIDRO BIRHCY Unavailable Unavailable DESIRE BRITT Unavailable Unavailab le [...] Unavailable Kovolyan, Payton K Primary Care Provider [phone] KOVOLYAN, PAYTON K Attending Unavailable KOVOLYAN, PAYTON K Referring Unavailable KOVOLYAN, PAYTON K Attending Unavailable KOVOLYAN, PAYTON K Referring Unavailable KOVOLYAN, PAYTON K Attending Unavailable KOVOLYAN, PAYTON K Referring Unavailable KOVOLYAN, PAYTON K Attending Unavailable KOVOLYAN, PAYTON K Referring Unavailable KOVOLYAN, PAYTON K Primary Care Unavailable Karen Cardoso Primary Care Provider [phone] Chiki Britt Primary Care Provid er KAREN CARDOSO Primary Care Unavailable NIKATOSHAShantel JAQUELINE Attending Unavailable Karen Cardoso Unavailable DO Karen Cardoso Primary Care Provider [phone] MD Finn Ortez II Attending Provider [phone] Finn Ortez II Unavailable REQUEST, NONE LISTED [...] Care Provider MD Floyd Hampton Attending Provider [phone] MD Finn Ortez II Attending Provider SHERYL COOPER Attending Unavailable KAREN CARDOSO Referring Unavailable MILAGROS LAI Attending Unavailable TERRANCE WOODARD Attending Unavailable JASON JENSEN Attending Unavailable TERRANCE WOODARD Attending Unavailable JASON JENSEN Referring Unavailable JASON JENSEN Referring Unavailable TERRANCE WOODARD Attending Unavailable ANGELA DUBOSE Attending Unavailable DO Karen Cardoso Primary Care Provider MD Floyd Hampton Attending Provider DO Karen Cardoso Attending Provider [phone] Walker, DO Jones Primary Care Provider [phone] MD Floyd Hampton Attending Provider MD Finn Ortez II Attending Provider MD Floyd Hampton Attending Provider Girsrinivas, DO Jones Primary Care Provider [phone] MD Floyd Hampton Attending Provider Walker, DO Jones Primary Care Provider [phone] MD Finn Ortez II Attending Provider [phone] MD Floyd Hampton Attending Provider Pérez SHAFFER, Finn Clifford Admitting Unavailabl e Girsrinivas, Bridger Primary Care Unavailable Pérez SHAFFER, Finn Clifford Attending Unavailabl e Wood II, Finn Clifford Admitting Unavailabl e Girvin, Bridger Primary Care Unavailable Pérez II, Finn Clifford Attending Unavailabl e Wood II, Finn Clifford Admitting Unavailabl e Girvin, Bridger Primary Care Unavailable Pérez II, Finn Clifford Attending Unavailabl e Pérez II, iFnn Clifford Ad[facility] Wood II, Finn Clifford Attending Unavailabl e Wood II, Finn Clifford Admitting Unavailabl e Girvin, Bridger Primary Care Unavailable Wood II, Finn Clifford Attending Unavailabl e Pérez II, Finn M Admitting [facility] Pérez II, Finn Clifford Attending Unavailabl e Pérez II, Finn M Attending [facility]ailabl e [facility]available Wood II, Finn M Admitting Unavailabl e Wood II, Finn M Admitting Unavailabl e Girvin, Bridger Primary Care Unavailable Pérez II, Finn Clifford Attending Unavailabl e [facility], Bridger Primary Care Unavailable [facility], Bridger Attending Unavailable [facility] Admitting Unavailable BertaFloyd weller Admitting Unavailab le BertaFloyd bermeo Attending Unavailab le [facility] [place]ger Primary Care Unavailable Allergies Allergy Classification Reported Allergen(s) Allergy Type Date of Onset Reaction(s) Facility (20 sources) acetaminophen / oxyCODONE; Translations: [OXYCODONE-ACETAM INOPHEN] Drug Allergy 5 Itching [facility] (20 sources) Acetaminophen / oxyCODONE; Translations: [Percocet] Drug Allergy 3 [facility] Rep[facility] (19 sources) DULoxetine Drug Allergy headaches [employer] [facility] [employer] Other (19 sources) FLUoxetine Drug Allergy doesn't work [employer] Other (13 sources) Acetaminophen; Translations: [acetaminophen] Drug Allergy 4 [facility] (18 sources) DULoxetine; Translations: [duloxetine] Drug Allergy 4 [facility] (18 sources) FLUoxetine; Translations: [fluoxetine] Drug Allergy 4 doesn't work [facility] (18 sources) oxyCODONE; Translations: [oxycodone] Drug Allergy 4 [facility] Medications Current Medications Medication Drug Class(es) [...] 03/10/2017 Active acetaminophen 500 mg oral tablet (7 sources) Start: 12-25-2023 take 1000 mg by mouth every eight hours Acetaminophen Active 1000 MG PO Q8H 180 December 25, 2023 12:00am do not reconcile until DOS: 01/05/2024 MED TO BED ascorbic acid 500 mg oral tablet (16 sources) Vitamin C take 1 tablet by mouth every month ascorbic acid 500 MG Tab take 500 mg by mouth.. 0 Active aspirin 81 mg delayed release oral tablet (7 sources) Platelet Aggregation Inhibitor, Nonsteroidal Anti-inflammatory Drug [...] Orally Once a day Nov, Active Biotin (8 sources) Start: 12-22-2023 take 1 tablet by mouth once daily Biotin (Hair, Skin And Nails (Biotin)) 10,000 mcg tablet,chewable Active 24552 MCG PO Daily December 22, 2023 12:00am [...] mg / cholecalciferol 125 unt oral tablet (8 sources) Vitamin D Start: 12-22-2023 take 1 tablet by mouth once daily Calcium Carbonate-Vitamin D3 Active 1 TAB PO Daily December 22, 2023 12:00am cariprazine 3 mg oral capsule (8 sources) Atypical Antipsychotic Start: 12-22-2023 take 1 capsule by mouth once daily Cariprazine (Vraylar) 3 mg capsule Active 3 MG PO Daily December 22, 2023 12:00am cephalexin 500 mg oral capsule (20 sources) Cephalosporin Antibacterial Start: 02-05-2024 End: 02-05-2024 take 500 mg by mouth three times daily Cephalexin Active 500 MG PO Three times daily 15 11February 05, 2024 10:52am Start: 12-22-2023 End: 01-21-2024 take 500 mg [...] succinate 25 mg extended release oral tablet (11 sources) Serotonin and Norepinephrine Reuptake Inhibitor Start: 11-19-2023 take 25 mg by mouth once daily Desvenlafaxine Succinate Active 25 MG PO Daily November 19, 2023 12:00am dexamethasone 1 mg/ml / tobramycin 3 mg/ml ophthalmic suspension (5 sources) Aminoglycoside Antibacterial, Corticosteroid Start: 07-27-2018 End: 08-03-2018 tobramycin-dexameth asone 0.3-0.1 % Suspension 2 drops to bilateral ears tid 1 Bottle 0 07/27/2018 Active estradiol 0.01 mg vaginal tablet (8 sources) Estrogen Start: 06-09-2017 YUVAFEM 10 mcg Tab Insert 1 (one) tablet (10 mcg total) into the vagina once a week. 12 tablet 0 06/09/2017 Active estrogens, conjugated (chcf) 0.625 mg/ml vaginal cream (16 sources) Estrogen [...] esteban oxyCODONE hydrochloride 5 mg oral tablet (7 sources) Opioid Agonist Start: 12-25-2023 take 5 mg by mouth every four hours Oxycodone Active 5 MG PO Q4H 42 7 December 25, 2023 do not reconcile until DOS: 01/05/2024 MED TO BED pantoprazole 20 mg delayed release oral tablet (6 sources) Proton Pump Inhibitor Start: 12-25-2023 take [...] Active traMADol hydrochloride 50 mg oral tablet (7 sources) Opioid Agonist Start: 08-29-202 4 take 50 mg by mouth every six hours Tramadol Active 50 MG PO q6h 28 December 25, 2023 12:00am do not reconcile until DOS: 01/05/2024 MED TO BED traZODone hydrochloride 50 mg oral tablet (8 sources) Serotonin Reuptake Inhibitor Start: 4 take [...] Take 2 tablets by mouth daily. Lot [id number], Exp 02/14 28 tablet 0 03/30/2018 05/11/2018 [...] Take 1 tablet by mouth daily. Lot [id number], exp 12/15 14 tablet 03/03/2018 03/26/2018 Discontinued Completed/Discontinued Medications Medication Drug Class(es) Dates Sig (Normalized) Sig (Original) ALPRAZolam 0.25 mg oral tablet (5 sources) Benzodiazepine End: 03-30-2018 ALPRAZolam 0.25 MG Tab tablet Take 0.5 mg by mouth as needed for Sleep. 03/30/2018 Discontinued amoxicillin 875 mg / clavulanate 125 mg oral tablet (20 sources) Penicillin-class Antibacterial Start: 09-26-2023 End: 11-19-2023 take 1 tablet by mouth twice daily at mealtime Amoxicillin-Pot Clavulanate Discontinued 1 TAB PO Twice daily 14 02September 26, 2023 11:15am November 19, 2023 8:37am with food bupivacaine hydrochloride 5 mg/ml injectable solution (2 sources) Amide Local Anesthetic Start: 05-02-2020 End: 05-02-2020 bupivacaine (MARCAINE) 0.5 % injection 1 mL calcium carbonate 1500 mg oral tablet (15 sources) Start: 06-26-2023 End: 12-22-2023 take 1 tablet by mouth once daily Calcium Carbonate (Calcium 600) 600 mg calcium (1,500 mg) tablet Discontinued 600 MG PO Daily June 26, 2023 1:00am December 22, 2023 11:54am cefadroxil 500 mg oral capsule (7 sources) Cephalosporin Antibacterial Start: 12-25-2023 End: 01-21-2024 take 500 mg by mouth every twelve hours Cefadroxil Discontinued 500 MG PO Q12H 14 December 25, 2023 12:00am January 21, 2024 9:29am do not reconcile until DOS: 01/05/2024 MED TO BED 1 ml dexamethasone phosphate 4 mg/ml injection (2 sources) Corticosteroid Start: 05-02-2020 End: 05-02-2020 dexAMETHasone (DECADRON) injection 4 mg docusate sodium 50 mg / sennosides, chcf 8.6 mg oral tablet (7 sources) Start: 12-25-2023 End: 01-21-2024 take 2 tablets by mouth once daily Sennosides-Docusat e Sodium (Senokot-S) 8.6-50 mg tablet Discontinued 2 TAB PO daily 60 December 25, 2023 12:00am January 21, 2024 [...] times daily. 05/11/2018 Discontinued polyethylene glycol 3350 81478 mg powder for oral solution (7 sources) Osmotic Laxative Start: 12-25-2023 End: 01-21-2024 Polyethylene Glycol 3350 (Miralax) 17 gram/dose powder Discontinued 17 GM PO daily 7 7 December 25, 2023 12:00am January 21, 2024 9:29am 1 packed mixed with 8 ounces of fluid. predniSONE 10 mg oral tablet (7 sources) Start: 12-25-2023 End: 01-21-2024 take 10 [...] Translations: [Primary osteoarthritis of right hip] Osteoporosis (12 sources) Osteoporosis; Translations: [Age-related osteoporosis without current pathological fracture] Onset: 11-19-2023 11-19-2023 Chronic Other aftercare (4 sources) Patient encounter status; Translations: [Aftercare following joint replacement surgery] 01-20-2024 Chronic Other aftercare (7 sources) Aftercare following joint replacement surgery; Translations: [Aftercare following joint replacement] Onset: 02-24-2024 01-21-2024 Chronic Other aftercare (11 sources) Long-term current use of drug therapy; 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] 11-19-2023 Episodic Other connective tissue disease (11 sources) Presence of unspecified artificial hip joint; Translations: [History of repair of hip joint] Onset: 09-25-2016 09-25-2016 Chronic Other connective tissue disease (7 sources) Presence of right artificial hip joint; Translations: [Hip joint replacement] Onset: 01-21-2024 01-21-2024 Chronic Other connective tissue disease (20 sources) Trochanteric bursitis; Translations: [Trochanteric bursitis, right [...] pain] Other nutritional; endocrine; and metabolic disorders (15 sources) Abnormal weight loss; Translations: [Loss of weight] Onset: 12-06-2021 Resolved: 12-06-2021 Episodic Other nutritional; endocrine; and metabolic disorders (1 source) Abnormal weight gain Episodic Other nutritional; endocrine; and metabolic disorders (13 sources) Weight gain; Translations: [Abnormal weight gain] 06-26-2023 Episodic Other nutritional; endocrine; and metabolic disorders (15 sources) Weight loss; Translations: [Abnormal weight loss] 06-26-2023 Episodic Other nutritional; endocrine; and metabolic disorders (2 sources) Weight increased; Translations: [Abnormal weight gain] 06-26-2023 Episodic Other skin disorders (1 source) [...] [Laboratory examination, unspecified] Onset: 12-13-2014 Episodic Other aftercare (9 sources) 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; Translations: [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] Onset: 02-07-2022 Episodic Other ear and sense organ disorders (1 source) Acute otitis externa; Translations: [Acute swimmer's ear of both sides] Episodic Other non-traumatic joint disorders (1 source) Pain in right shoulder; Translations: [Pain in right shoulder] Onset: 12-25-2023 Episodic Unclassified (1 source) Left wrist pain [...] XR hip RT min 2V(w/wo pelvis )*on 04-07-2024 XR hip RT min 2V(w/wo pelvis)* [facility] [address] [place] [address] XRay Report Signed Patient: Antonino Torres MR#: [id number] : 1955 Acct:[id number] Age/Sex: 68 / F ADM Date: 04/07/24 [place] [facility] [place] [facility] Attending Dr: Finn Ortez II, MD Copies to: Finn Ortez MD Ordering Provider: Finn Ortez MD Date of Service: 04/07/24 XR/XR hip RT min 2V(w/wo pelvis)*: Z96.641 - Presence of right artificial hip joint 2 views right hip with single view pelvis plain film COMPARISON: 02/24/2024 HISTORY: Status post right total hip arthroplasty ACUTE FINDINGS: None DEGENERATIVE CHANGE: Stable SOFT TISSUE FINDINGS: Unremarkable JOINT EFFUSION: None POSTOP CHANGES: Stable hardware. Unremarkable left hip arthroplasty. BONY MINERALIZATION: Adequate XR/XR hip RT min 2V(w/wo pelvis)* IMPRESSION: Stable uncomplicated right hip arthroplasty Impression dictated by: Gary Ley M.D.04/07/2024 2:14 PM Dictation Location: RADIO-PC-23 Transcribed By: SAGAR 04/07/241413 Dictated By: Gary Ley DO 04/07/241412 Signed By: 04/07/241413 Normal [facility] XR hip RT min 2V(w/wo pelvis )*on 02-24-2024 XR hip RT min 2V(w/wo pelvis)* [facility] [address] [place] [address] XRay Report Signed Patient: Antonino Torres MR#: [id number] : 1955 Acct:[id number] Age/Sex: 68 / F ADM Date: 02/24/24 [place] [facility] [place]: [facility] Attending Dr: Finn Ortez II, MD Copies to: Finn Ortez MD Ordering Provider: Finn Ortez MD Date of Service: 02/24/24 XR/XR hip RT min 2V(w/wo pelvis)*: Z96.641 - Presence of right artificial hip joint AP WEIGHTBEARING PELVIS AND RIGHT HIP - 2 views: CLINICAL HISTORY: Follow-up right hip replacement COMPARISON: 01/21/2024 AP weightbearing pelvis and crosstable lateral view of the right hip were obtained. Patient has bilateral hip prostheses. The hardware appears intact and unchanged from the prior. There are no developing fractures or dislocation. Enthesophytes are present at the iliac crests and greater trochanters. The SI joints are intact. Degenerative change is seen at the lower imaged lumbar spine. There are no significant soft tissue abnormalities. XR/XR hip RT min 2V(w/wo pelvis)* IMPRESSION: STABLE HIP PROSTHESES. Impression dictated by: Silvina Rolon M.D.02/24/2024 1:05 PM Dictation Location: RADIO-PC-23 Transcribed By: SAGAR 02/24/24 130 Dictated By: Silvina Rolon MD 02/24/24 1303 Signed By: 02/24/24 130 Normal [facility] Laboratory - Chemistry and C hemistry - challengeon 02-05-2024 Bilirubin Ql (U) Negative NEGATIVE [facility] Glucose (U) [Mass/Vol] Negative NEGATIVE [facility] Ketones Ql (U) Negative NEGATIVE [facility] pH (U) 6.0 [pH] 5.0-9.0 [facility] Specific gravity (U) [Rel density] <=1.005 Abnormal 1.005-1.02 5 [facility] Urobilinogen Qn (U) 0.2 {Sajan'U}/dL 0.2-1.0 [facility] Laboratory - Specimen inform ationon 02-05-2024 Appearance (U) CLEAR CLEAR [facility] Color (U) LT. YELLOW YELLOW [facility] Laboratory - Urinalysison Leukocyte esterase Test strip Ql (U) Negative NEGATIVE [facility] Mucus Ql (Urine sed) NONE SEEN NONE SEEN [facility] Nitrite Ql (U) Negative NEGATIVE [facility] Protein Ql (U) Negative NEG/TRACE [facility] No Panel Informationon 02-04 Miscellaneous Test Comment See comment [facility] Comment on above: Specimen Source: UCC - Urine,Clean Catch - Urine CC - 200.100 Urine Bacteria TRACE #/HPF Abnormal NONE SEEN [facility] Urine Culture Reflexed NO [facility] Urine Culture Result 1 \R\ Urine Culture, Routine [facility] Urine Occult Blood TRACE-I NEGATIVE [facility] Urine Other Casts NONE SEEN #/LPF NONE SEEN [facility] Urine Other Crystals None Seen #/HPF None Seen [facility] Urine RBC NONE SEEN #/HPF 0-2 [facility] Urine Squamous Epithelial Cells RARE #/LPF NONE/RARE [facility] Urine WBC NONE SEEN #/HPF NONE SEEN [facility] XR hip RT min 2V(w/wo pelvis )*on 01-21-2024 XR hip RT min 2V(w/wo pelvis)* [facility] [address] [place] [address] XRay Report Signed Patient: Antonino Torres MR#: [id number] : 1955 Acct:[id number] Age/Sex: 68 / F ADM Date: 01/21/24 [place] [facility] [place]: [facility] Attending Dr: Finn Ortez II, MD [...] Trinidad Jr., D.O.01/21/2024 12:36 PM Dictation Location: [place] [address] Transcribed By: [facility] 01/21/24 1236 Dictated By: Isidro Trinidad Jr, DO 01/21/24 1234 Signed By: 01/21/24 1236 Normal [facility] ABO/Rh Retypeon 01-05-2024 ABO/RH Recheck Result Positive Normal [facility] Comment on above: Result Comment: PERF ORMED BY: [address] [place] [address] PATHOLOGIST HUMAN RESOURCES FILE CLERK KOMAL Babb 01-05-2024 L Specimen: [id number] Received: 01/06/24 Status: SOUVicki Req Num: [id number] Spec Type: Surgical Subm Dr: Finn Ortez MD Tissues: A Femoral Head - Other than Fracture (R HIP) Procedures: HE/2, Gross/Micro L3, Decalcification Age/ Patient Sex Location Account Attending Physician Antonino Torres 68/F [place] [id number] Finn Ortez MD SPEC NUM: [id number] RECD: 01/06/24 STATUS: MELISSA REQ NUM: [id number] JASKARAN: 01/05/[address]: Finn Ortez MD ENTERED: 01/06/24 [facility] DR: SPEC TYPE: Surgical DEPT: S ENTERED BY: [id number] RECV BY: [id number] ORDERED: HE/2, Gross/Micro L3, Decalcification ORDERED: HE/2, [...] greatest dimension. Moderate osteophytic lipping grossly identified. Check Viewer sections are as follows: A1 eburnation, (submitted in decal before routine processing) A2 osteophytic lipping and soft tissue, (submitted in decal before routine processing) CPT Codes 16804 Specimen: [id number] Received: 01/06/24 Status: MELISSA Trace Num: [id number] Spec Type: Surgical Subm Dr: Finn Ortez MD Tissues: A Femoral Head - Other than Fracture (R HIP) Procedures: HE/2, Gross/Micro L3, Decalcification Patient: Antonino Torres [id number] (Continued) Signed (signature on file) Mary Mccarthy MD 01/15/241914 Normal [facility] XR hip RT 1Von 01-05-2024 XR hip RT 1V [place] [address] XRay Report Signed Patient: Antonino Torres MR#: [id number] : 1955 Acct:[id number] Age/Sex: 68 / F ADM Date: 01/05/24 Loc: [place] Room: Type: [facility] Attending Dr: Finn Ortez II, [...] arthroplasty hardware placement. Impression dictated by: Justen Jnekins M.D.01/05/2024 11:48 AM Dictation Location: [place] [address] Transcribed By: [facility] 01/05/24 1148 Dictated By: Justen Jenkins II, MD 01/05/24 1147 Signed By: 01/05/24 1148 Normal [facility] XR low pelvis w/RT x-table h ipon 01-05-2024 XR low pelvis w/RT x-table hip [facility] [address] [place] [address] XRay Report Signed Patient: Antonino Torres MR#: [id number] : 1955 Acct:[id number] Age/Sex: 68 / F ADM Date: 01/05/24 Loc: [place] Room: Type: [facility] Attending Dr: Finn Ortez II, [...] Gary Ley M.D.01/05/2024 4:38 PM Dictation Location: [place] [address] Transcribed By: [facility] 01/05/24 1638 Dictated By: Gary Ley DO 01/05/24 1637 Signed By: 01/05/24 1638 Normal [facility] Automated basophil %Ordered By: Finn Ortez on 12-22-2023 Basophils/100 WBC (Bld) 0.2 % Normal . [facility] Comment on above: Performed By: #### V [id number], HGB, ALB, CUMRSA, A1C WTH eA #### [place] [address] [place] #### NICOTINE #### [facility] , Automated basophil countOrde red By: Finn Ortez on 12-22-2023 Basophils (Bld) [#/Vol] 0.0 10*3/uL Normal 0.0-0.2 [facility] Comment on above: Result Comment: PERF ORMED BY: [place] [address] PATHOLOGIST HUMAN RESOURCES FILE CLERK KOMAL COFFMAN M.D. Performed By: #### V [id number], HGB, ALB, CUMRSA, A1C WTH eA #### [facility] [address] [place] [address] [place] #### NICOTINE #### [facility] , Automated blood monocyte cou ntOrdered By: Finn Ortez on 12-22-2023 Monocytes (Bld) [#/Vol] 0.5 10*3/uL Normal 0.0-0.8 [facility] Comment on above: Performed By: #### V [id number], HGB, ALB, CUMRSA, A1C WT eA #### [facility] [address] [place] [address] [place] #### NICOTINE #### [facility] , Automated eosinophil %Ordere d By: Finn Ortez on 12-22-2023 Eosinophils/100 WBC (Bld) 2.0 % Normal . [facility] Comment on above: Performed By: #### V [id number], HGB, ALB, CUMRSA, A1C WTH eA #### [facility] [address] [place] [address] [place] #### NICOTINE #### [facility] , Automated eosinophil countOr dered By: Finn Ortez on 12-22-2023 Eosinophils (Bld) [#/Vol] 0.1 10*3/uL Normal 0.0-0.45 [facility] Comment on above: Performed By: #### V [id number], HGB, ALB, CUMRSA, A1C WTH eA #### [facility] [address] [place] [address] [place] #### NICOTINE #### [facility] , Automated monocyte %Ordered By: Finn Ortez on 12-22-2023 Monocytes/100 WBC (Bld) 7.0 % Normal . [facility] Comment on above: Performed By: #### V [id number], HGB, ALB, CUMRSA, A1C WTH eA #### [place] [address] [place] #### NICOTINE #### [facility] , Automated neutrophil %Ordere d By: Finn Ortez on 12-22-2023 Neutrophils/100 WBC (Bld) 62.4 % Normal . [facility] Comment on above: Performed By: #### V [id number], HGB, ALB, CUMRSA, A1C WTH eA #### [place] [address] [place] #### NICOTINE #### [facility] , Complete Blood Count Auto Di ffon 12-22-2023 Mean Corpuscular HGB Conc 33.6 g/dL Normal 32.0-35.0 [facility] Comment on above: Performed By: #### V [id number], HGB, ALB, CUMRSA, A1C WTH eA #### [place] [address] [place] #### NICOTINE #### [facility] , NRBC% 0.1 /100{WBC} Normal 0-0.5 [facility] Comment on above: Performed By: #### V [id number], HGB, ALB, CUMRSA, A1C WTH eA #### [place] [address] [place] #### NICOTINE #### [facility] , Erythrocyte distribution wid th [Ratio] by Automated countOrdered By: Finn Ortez on 12-22-2023 Erythrocyte distribution width (RBC) [Ratio] 14.2 % Normal 11.9-15.3 [facility] Comment on above: Performed By: #### V [id number], HGB, ALB, CUMRSA, A1C WTH eA #### [place] [address] [place] #### NICOTINE #### [facility] , Erythrocytes [#/volume] in B lood by Automated countOrdered By: Finn Ortez on 12-22-2023 RBC (Bld) [#/Vol] 4.41 10*6/uL Normal 3.60-5.00 [facility] Comment on above: Performed By: #### V [id number], HGB, ALB, CUMRSA, A1C WTH eA #### [facility] [address] [place] [address] [place] #### NICOTINE #### [facility] , Fructosamineon 12-22-2023 Fructosamine 216 umol/L Normal 0-285 [facility] Comment on above: Result Comment: Publ ished reference interval for apparently healthy subjects between age 20 and 60 is 205 - 285 umol/L and in a poorly controlled diabetic population is 228 - 563 umol/L with a mean of 396 umol/L. Performed at: [facility] [place] [id number] [employer] Backhoe Operator: Chang Quinteros PhD, Phone: [phone] PERFORMED BY: [place] [address] PATHOLOGIST HUMAN RESOURCES FILE CLERK KOMAL COFFMAN M.D. Performed By: #### V [id number], HGB, ALB, CUMRSA, A1C WTH eA #### [address] #### NICOTINE #### [facility] , Fructosamine [Moles/volume] in Serum or PlasmaOrdered By: Finn Ortez on 12-22-2023 Fructosamine [Moles/Vol] 216 umol/L 0-285 [facility] Comment on above: Published reference interval for apparently healthysubjects between age 20 and 60 is 205 - 285 umol/L and in apoorly controlled diabetic population is 228 - 563 umol/Lwith a mean of 396 umol/L.Performed at: [facility] [address] [id number] Director: Chang Quinteros PhD, Phone: [phone] Hematocrit [Volume Fraction] of Blood by Automated countOrdered By: Finn Ortez on 12-22-2023 Hematocrit (Bld) [Volume fraction] 38.6 % Normal 34.0-46.4 [facility] Comment on above: Performed By: #### V [id number], HGB, ALB, CUMRSA, A1C WT eA #### [facility] [address] [place] [address] [place] #### NICOTINE #### [facility] , Hemoglobin [Mass/volume] in BloodOrdered By: Finn Ortez on 12-22-2023 Hemoglobin (Bld) [Mass/Vol] 13.0 g/dL Normal 11.8-15.4 [facility] Comment on above: Performed By: #### V [id number], HGB, ALB, CUMRSA, A1C WT eA #### [place] [address] [place] #### NICOTINE #### [facility] , Leukocytes [#/volume] correc main for nucleated erythrocytes in Blood by Automated counOrdered By: Finn Ortez on 12-22-2023 WBC corrected for nucl RBC Auto (Bld) [#/Vol] 6.8 10*3/uL 3.8-11.6 [facility] Leukocytes [#/volume] in Blo od by Automated countOrdered By: Finn Ortez on 12-22-2023 WBC (Bld) [#/Vol] 6.8 10*3/uL Normal 3.8-11.6 [facility] Comment on above: Performed By: #### V [id number], HGB, ALB, CUMRSA, A1C WT eA #### [facility] [address] [place] [address] [place] #### NICOTINE #### [facility] , Lymphocytes [#/volume] in Bl ood by Automated countOrdered By: Finn Ortez on 12-22-2023 Lymphocytes (Bld) [#/Vol] 1.9 10*3/uL Normal 1.00-4.8 [facility] Comment on above: Performed By: #### V [id number], HGB, ALB, CUMRSA, A1C WTH eA #### [facility] [address] [place] [address] [place] #### NICOTINE #### [facility] , Lymphocytes/100 leukocytes i n Blood by Automated countOrdered By: Finn Ortez on 12-22-2023 Lymphocytes/100 WBC (Bld) 28.4 % Normal . [facility] Comment on above: Performed By: #### V [id number], HGB, ALB, CUMRSA, A1C WTH eA #### [place] [address] [place] #### NICOTINE #### [facility] , MCH [Entitic mass] by Automa main countOrdered By: Finn Ortez on 12-22-2023 MCH (RBC) [Entitic mass] 29.4 pg Normal 24.7-34.3 [facility] Comment on above: Performed By: #### V [id number], HGB, ALB, CUMRSA, A1C WTH eA #### [place] [address] [place] #### NICOTINE #### [facility] , MCHC Auto (RBC) [Mass/Vol]Or dered By: Finn Ortez on 12-22-2023 MCHC (RBC) [Mass/Vol] 33.6 g/dL 32.0-35.0 [facility] MCV [Entitic volume] by Auto mated countOrdered By: Finn Ortez on 12-22-2023 MCV (RBC) [Entitic vol] 87.4 fL Normal 80-100 [facility] Comment on above: Performed By: #### V [id number], HGB, ALB, CUMRSA, A1C WTH eA #### [place] [address] [place] #### NICOTINE #### [facility] , Neutrophils [#/volume] in Bl ood by Automated countOrdered By: Finn Ortez on 12-22-2023 Neutrophils (Bld) [#/Vol] 4.3 10*3/uL Normal 1.8-7.7 [facility] Comment on above: Performed By: #### V [id number], HGB, ALB, CUMRSA, A1C WTH eA #### [facility] [address] [place] [address] [place] #### NICOTINE #### [facility] , Nucleated erythrocytes [Pres ence] in Blood by Automated countOrdered By: Finn Ortez on 12-22-2023 Nucleated RBC Auto Ql (Bld) 0.1 /100{WBC} 0-0.5 [facility] PST Type and Screenon 2023 ABO and Rh group Nom (Bld) Blood group O Rh(D) positive Normal [facility] Comment on above: Order Comment: Date of Surgery: [id number] Result Comment: PERF ORMED BY: [place] [address] PATHOLOGIST HUMAN RESOURCES FILE CLERK KOMAL COFFMAN M.D. Platelet mean volume [Entiti c volume] in Blood by Automated countOrdered By: Finn Ortez on 12-22-2023 Platelet mean volume (Bld) [Entitic vol] 7.4 fL Normal 6.3-10.7 [facility] Comment on above: Performed By: #### V [id number], HGB, ALB, CUMRSA, A1C WTH eA #### [facility] [address] [place] [address] [place] #### NICOTINE #### [facility] , Platelets [#/volume] in Bloo d by Automated countOrdered By: Finn Ortez on 12-22-2023 Platelets (Bld) [#/Vol] 306 10*3/uL Normal 150-450 [facility] Comment on above: Performed By: #### V [id number], HGB, ALB, CUMRSA, A1C WTH eA #### [place] [address] [place] #### NICOTINE #### [facility] , Basophils Auto (Bld) [#/Vol] on 12-19-2023 Basophils (Bld) [#/Vol] 0.1 10 3/uL 0.0-0.1 [facility] Basophils/100 WBC Auto (Bld) on 12-19-2023 Basophils/100 WBC (Bld) 0.4 % 0.2-2.0 [facility] Eosinophils/100 WBC Auto (Bl d)on 12-19-2023 Eosinophils/100 WBC (Bld) 1.2 % 0.9-7.0 [facility] Erythrocyte distribution wid th Auto (RBC) [Ratio]on 12-19-2023 Erythrocyte distribution width (RBC) [Ratio] 13.7 % 11.0-15.0 [facility] Estimated glomerular filtrat ion rate (GFR) non- Americanon 12-19-2023 GFR/1.73 sq M.predicted among non-blacks MDRD (S/P/Bld) [Vol rate/Area] mL/min/{1.73_m2} >=60 [facility] Globulin Calc (S) [Mass/Vol] on 12-19-2023 Globulin (S) [Mass/Vol] 2.9 g/dL [facility] Hematocrit Auto (Bld) [Volum e fraction]on 12-19-2023 Hematocrit (Bld) [Volume fraction] 40.6 % 36.0-48.0 [facility] Hemoglobin [Mass/volume] in Bloodon 12-19-2023 Hemoglobin (Bld) [Mass/Vol] 13.3 g/dL 12.0-16.0 [facility] INR in Platelet poor plasma by Coagulation assayon 12-19-2023 INR Coag (PPP) [Relative time] 0.95 {INR} [facility] Comment on above: DESIRED INR:2.0-3.0 CONDITIONS NOT LISTED BELOW2.5-3.5 FOR PROSTHETIC HEART VALVE REPLACEMENT2.5-3.5 RECURRENT THROMBOSIS Laboratory - Chemistry and C hemistry - challengeon 12-19-2023 Bilirubin Ql (U) Negative NEGATIVE [facility] Glucose (U) [Mass/Vol] Negative NEGATIVE [facility] Ketones Ql (U) 40 mg/dL Abnormal NEGATIVE [facility] pH (U) 5.5 [pH] 5.0-9.0 [facility] Specific gravity (U) [Rel density] >=1.030 Abnormal 1.005-1.02 5 [facility] Urobilinogen Qn (U) 0.2 {Sajan'U}/dL 0.2-1.0 [facility] Albumin [Mass/Vol] 4.0 g/dL 3.4-5.0 [facility] ALP [Catalytic activity/Vol] 90 U/L 46-116 [facility] ALT [Catalytic activity/Vol] 34 U/L 14-59 [facility] AST [Catalytic activity/Vol] 27 U/L 15-37 [facility] Bilirubin [Mass/Vol] 0.6 mg/dL 0.2-1.0 [facility] Calcium [Mass/Vol] 9.2 mg/dL 8.5-10.1 [facility] Chloride [Moles/Vol] 104 mmol/L 98-107 [facility] CO2 [Moles/Vol] 28.2 mmol/L 21.0-32.0 [facility] Creatinine [Mass/Vol] 0.79 mg/dL 0.55-1.02 [facility] GFR/1.73 sq M.predicted MDRD (S/P/Bld) [Vol rate/Area] mL/min/{1.73_m2} >=60 [facility] Glucose [Mass/Vol] 93 mg/dL 74-106 [facility] Potassium [Moles/Vol] 3.6 mmol/L 3.5-5.1 [facility] Protein [Mass/Vol] 6.9 g/dL 6.4-8.2 [facility] Sodium [Moles/Vol] 142 mmol/L 136-145 [facility] Urea nitrogen [Mass/Vol] 14.0 mg/dL 7.0-18.0 [facility] Urea nitrogen/Creatinine [Mass ratio] 17.7 mg/mg [facility] Laboratory - Hematology and Cell countson 12-19-2023 Immature granulocytes/100 WBC (Bld) 0.3 % 0.0-0.5 [facility] Laboratory - Specimen inform ationon 12-19-2023 Appearance (U) SL CLOUDY CLEAR [facility] Color (U) YELLOW YELLOW [facility] Laboratory - Urinalysison Leukocyte esterase Test strip Ql (U) Negative NEGATIVE [facility] Mucus Ql (Urine sed) TRACE Abnormal NONE SEEN [facility] Nitrite Ql (U) Negative NEGATIVE [facility] Protein Ql (U) TRACE mg/dL NEG/TRACE [facility] Leukocytes [#/volume] correc main for nucleated erythrocytes in Blood by Automated counon 12-19-2023 WBC corrected for nucl RBC Auto (Bld) [#/Vol] 13.9 10 3/uL High 4.0-11.0 [facility] Lymphocytes Auto (Bld) [#/Vo l]on 12-19-2023 Lymphocytes (Bld) [#/Vol] 2.3 10 3/uL 1.2-3.8 [facility] Lymphocytes/100 WBC Auto (Bl d)on 12-19-2023 Lymphocytes/100 WBC (Bld) 16.7 % Low 20.5-60.0 [facility] MCH Auto (RBC) [Entitic mass ]on 12-19-2023 MCH (RBC) [Entitic mass] 29.2 pg 26.7-34.0 [facility] MCHC Auto (RBC) [Mass/Vol]on 12-19-2023 MCHC (RBC) [Mass/Vol] 32.8 g/dL 29.9-35.2 [facility] MCV Auto (RBC) [Entitic vol] on 12-19-2023 MCV (RBC) [Entitic vol] 89.2 fL 81.0-99.0 [facility] Monocytes Auto (Bld) [#/Vol] on 12-19-2023 Monocytes (Bld) [#/Vol] 1.2 10 3/uL High 0.3-0.8 [facility] Monocytes/100 WBC Auto (Bld) on 12-19-2023 Monocytes/100 WBC (Bld) 8.8 % 1.7-12.0 [facility] Neutrophils Auto (Bld) [#/Vo l]on 12-19-2023 Neutrophils (Bld) [#/Vol] 10.1 10 3/uL High 1.4-6.5 [facility] Neutrophils/100 WBC Auto (Bl d)on 12-19-2023 Neutrophils/100 WBC (Bld) 72.6 % 43.0-75.0 [facility] No Panel Informationon 12-18 Urine Bacteria MODERATE #/HPF Abnormal NONE SEEN [facility] Urine Calcium Oxalate Crystals RARE [facility] Urine Culture Reflexed YES [facility] Urine Microscopic Review YES [facility] Urine Occult Blood LARGE Abnormal NEGATIVE [facility] Urine Other Casts SEEN #/LPF Abnormal NONE SEEN [facility] Urine Other Crystals Seen #/HPF Abnormal None Seen [facility] Urine RBC 75-100 #/HPF Abnormal 0-2 [facility] Urine Squamous Epithelial Cells FEW #/LPF Abnormal NONE/RARE [facility] Urine WBC 2-5 #/HPF Abnormal NONE SEEN [facility] Eosinophils # (Auto) 0.2 10 3/uL 0.0-0.7 [facility] Immature Granulocyte # (Auto) 0.04 10 3/uL High 0.00-0.03 [facility] Troponin I High Sensitivity 5.1 pg/mL 4.0-51.3 [facility] Comment on above: CUT-OFF POINTS HAVE BEEN ESTABLISHED BASED ON THE FOURTHIVERSAL DEFINITION OF MYOCARDIAL INFARCTION. THE UPPERREFERENCE LIMIT [...] (Bld) [Entitic vol] 9.0 fL Low 9.5-13.5 [facility] Platelets Auto (Bld) [#/Vol] on 12-19-2023 Platelets (Bld) [#/Vol] 300 10 3/uL 150-450 [facility] Prothrombin time (PT)on 11-27 PT Coag (PPP) [Time] 10.1 s 9.0-11.6 [facility] RBC Auto (Bld) [#/Vol]on RBC (Bld) [#/Vol] 4.55 10 6/uL 4.20-5.40 [facility] Serum or plasma albumin/glob ulin mass ratioon 12-19-2023 Albumin/Globulin [Mass ratio] 1.4 {ratio} [facility] Serum or plasma anion gap de terminationon 12-19-2023 Anion gap [Moles/Vol] 13.4 mmol/L [facility] Yeast detection in urine sed iment by light microscopyon 12-19-2023 Yeast LM Ql (Urine sed) SEEN Abnormal NONE SEEN [facility] Basophils Auto (Bld) [#/Vol] on 12-06-2023 Basophils (Bld) [#/Vol] 0.1 10 3/uL 0.0-0.1 [facility] Basophils/100 WBC Auto (Bld) on 12-06-2023 Basophils/100 WBC (Bld) 1.0 % 0.2-2.0 [facility] Cholesterol in LDL Calc [Mas s/Vol]on 12-06-2023 Cholesterol in LDL [Mass/Vol] 105.0 mg/dL [facility] Comment on above: <100 mg/dl [id number] 0-129 mg/dl NEAR OR ABOVE [id number] mg/dl BORDERLINE [id number] mg/dl HIGH>190 mg/dl VERY HIGH Cholesterol in VLDL Calc [Ma ss/Vol]on 12-06-2023 Cholesterol in VLDL [Mass/Vol] 21.0 mg/dL [facility] Eosinophils/100 WBC Auto (Bl d)on 12-06-2023 Eosinophils/100 WBC (Bld) 3.7 % 0.9-7.0 [facility] Erythrocyte distribution wid th Auto (RBC) [Ratio]on 12-06-2023 Erythrocyte distribution width (RBC) [Ratio] 13.8 % 11.0-15.0 [facility] Estimated glomerular filtrat ion rate (GFR) non- Americanon 12-06-2023 GFR/1.73 sq M.predicted among non-blacks MDRD (S/P/Bld) [Vol rate/Area] mL/min/{1.73_m2} >=60 [facility] Globulin Calc (S) [Mass/Vol] on 12-06-2023 Globulin (S) [Mass/Vol] 3.0 g/dL [facility] Hematocrit Auto (Bld) [Volum e fraction]on 12-06-2023 Hematocrit (Bld) [Volume fraction] 41.8 % 36.0-48.0 [facility] Hemoglobin [Mass/volume] in Bloodon 12-06-2023 Hemoglobin (Bld) [Mass/Vol] 13.3 g/dL 12.0-16.0 [facility] Laboratory - Chemistry and C hemistry - challengeon 12-06-2023 Albumin [Mass/Vol] 3.8 g/dL 3.4-5.0 [facility] ALP [Catalytic activity/Vol] 110 U/L 46-116 [facility] ALT [Catalytic activity/Vol] 40 U/L 14-59 [facility] AST [Catalytic activity/Vol] 32 U/L 15-37 [facility] Bilirubin [Mass/Vol] 0.4 mg/dL 0.2-1.0 [facility] Calcium [Mass/Vol] 8.8 mg/dL 8.5-10.1 [facility] Chloride [Moles/Vol] 105 mmol/L 98-107 [facility] Cholesterol [Mass/Vol] 189 mg/dL <=200 [facility] Cholesterol in HDL [Mass/Vol] 63 mg/dL High 40-60 [facility] Comment on above: > or =60 mg/dl - LOW CARDIOVASCULAR RISK<40 mg/dl - HIGH CARDIOVASCULAR RISK CO2 [Moles/Vol] 32.2 mmol/L High 21.0-32.0 [facility] Creatinine [Mass/Vol] 0.66 mg/dL 0.55-1.02 [facility] GFR/1.73 sq M.predicted MDRD (S/P/Bld) [Vol rate/Area] mL/min/{1.73_m2} >=60 [facility] Glucose [Mass/Vol] 91 mg/dL 74-106 [facility] Potassium [Moles/Vol] 4.1 mmol/L 3.5-5.1 [facility] Protein [Mass/Vol] 6.8 g/dL 6.4-8.2 [facility] Sodium [Moles/Vol] 143 mmol/L 136-145 [facility] Triglyceride [Mass/Vol] 105 mg/dL <=150 [facility] TSH Qn 2.954 m[IU]/L 0.358-3.74 0 [facility] Urea nitrogen [Mass/Vol] 11.0 mg/dL 7.0-18.0 [facility] Urea nitrogen/Creatinine [Mass ratio] 16.7 mg/mg [facility] Laboratory - Hematology and Cell countson 12-06-2023 Immature granulocytes/100 WBC (Bld) 0.3 % 0.0-0.5 [facility] Leukocytes [#/volume] correc main for nucleated erythrocytes in Blood by Automated counon 12-06-2023 WBC corrected for nucl RBC Auto (Bld) [#/Vol] 6.8 10 3/uL 4.0-11.0 [facility] Lymphocytes Auto (Bld) [#/Vo l]on 12-06-2023 Lymphocytes (Bld) [#/Vol] 1.8 10 3/uL 1.2-3.8 [facility] Lymphocytes/100 WBC Auto (Bl d)on 12-06-2023 Lymphocytes/100 WBC (Bld) 26.8 % 20.5-60.0 [facility] MCH Auto (RBC) [Entitic mass ]on 12-06-2023 MCH (RBC) [Entitic mass] 29.2 pg 26.7-34.0 [facility] MCHC Auto (RBC) [Mass/Vol]on 12-06-2023 MCHC (RBC) [Mass/Vol] 31.8 g/dL 29.9-35.2 [facility] MCV Auto (RBC) [Entitic vol] on 12-06-2023 MCV (RBC) [Entitic vol] 91.7 fL 81.0-99.0 [facility] Monocytes Auto (Bld) [#/Vol] on 12-06-2023 Monocytes (Bld) [#/Vol] 0.5 10 3/uL 0.3-0.8 [facility] Monocytes/100 WBC Auto (Bld) on 12-06-2023 Monocytes/100 WBC (Bld) 7.9 % 1.7-12.0 [facility] Neutrophils Auto (Bld) [#/Vo l]on 12-06-2023 Neutrophils (Bld) [#/Vol] 4.1 10 3/uL 1.4-6.5 [facility] Neutrophils/100 WBC Auto (Bl d)on 12-06-2023 Neutrophils/100 WBC (Bld) 60.3 % 43.0-75.0 [facility] No Panel Informationon 12-05 Eosinophils # (Auto) 0.3 10 3/uL 0.0-0.7 [facility] Immature Granulocyte # (Auto) 0.02 10 3/uL 0.00-0.03 [facility] Platelet mean volume Auto (B ld) [Entitic vol]on 12-06-2023 Platelet mean volume (Bld) [Entitic vol] 8.7 fL Low 9.5-13.5 [facility] Platelets Auto (Bld) [#/Vol] on 12-06-2023 Platelets (Bld) [#/Vol] 291 10 3/uL 150-450 [facility] RBC Auto (Bld) [#/Vol]on RBC (Bld) [#/Vol] 4.56 10 6/uL 4.20-5.40 [facility] Serum or plasma albumin/glob ulin mass ratioon 12-06-2023 Albumin/Globulin [Mass ratio] 1.3 {ratio} [facility] Serum or plasma anion gap de terminationon 12-06-2023 Anion gap [Moles/Vol] 9.9 mmol/L [facility] Serum or plasma total choles terol/high density lipoprotein (HDL) cholesterol mass amador 12-06-2023 Cholesterol.total/C holesterol in HDL [Mass ratio] 3.0 {ratio} [facility] Comment on above: 3.3 - 4.4 LOW RISK4. 4 - 7.1 AVERAGE RISK7.1 - 11.0 MODERATE RISK>11.0 HIGH RISK A1C with Estimated Average G luon 11-19-2023 Glucose [Mass/Vol] 123 mg/dL Normal [facility] Comment on above: Result Comment: PERF ORMED BY: [place] [address] PATHOLOGIST HUMAN RESOURCES FILE CLERK KOMAL COFFMAN M.D. Performed By: #### V [id number], HGB, ALB, CUMRSA, A1C [facility] eA #### [address] #### NICOTINE #### [facility] , Albumin Levelon 11-19-2023 Albumin [Mass/Vol] 4.6 g/dL Normal 3.5-5.7 [facility] Comment on above: Performed By: #### V [id number], HGB, ALB, CUMRSA, A1C WT eA #### [address] #### NICOTINE #### [facility] , Albumin [Mass/volume] in Ser um or Plasma by Bromocresol green (BCG) dye binding methoOrdered By: Finn Ortez on 11-19-2023 Albumin BCG dye [Mass/Vol] 4.6 g/dL 3.5-5.7 [facility] Cotinine [Mass/volume] in Se rum or PlasmaOrdered By: Finn Ortez on 11-19-2023 Cotinine [Mass/Vol] <1.0 ng/mL . [facility] Comment on above: This test was develo ped and its performance characteristicsdetermined by [employer]. It has not been cleared orapproved by the Food and Drug Administration.Cotinine levels greater than 20.0 are consistent with theuse of tobacco or tobacco cessation products.Performed at: [address] [id number] Director: Vinh Almeida MD, Phone: [phone] Glucose mean value [Mass/vol ume] in Blood Estimated from glycated hemoglobinOrdered By: Finn Ortez on 11-19-2023 Average glucose Estimated from glycated hemoglobin (Bld) [Mass/Vol] 123 mg/dL [facility] Hemoglobin A1c percentageOrd ered By: Finn Ortez on 11-19-2023 HbA1c (Bld) [Mass fraction] 5.9 % High 4.3-5.6 [facility] Comment on above: Increased risk for d iabetes: 5.7 - 6.4diabetes: >6.4glycemic control for adults with diabetes: <7.0 Result Comment: Incr eased risk for diabetes: 5.7 - 6.4 diabetes: >6.4 glycemic control for adults with diabetes: <7.0 Performed By: #### V [id number], HGB, ALB, CUMRSA, A1C WTH eA #### [place] [address] [place] #### NICOTINE #### [facility] , Hemoglobin [Mass/volume] in BloodOrdered By: Finn Ortez on 11-19-2023 Hemoglobin (Bld) [Mass/Vol] 13.6 g/dL Normal 11.8-15.4 [facility] Comment on above: Result Comment: PERF ORMED BY: [place] [address] PATHOLOGIST HUMAN RESOURCES FILE CLERK KOMAL COFFMAN M.D. Performed By: #### V [id number], HGB, ALB, CUMRSA, A1C WTH eA #### [address] #### NICOTINE #### [facility] , MRSA Cultureon 11-19-2023 MRSA Culture MRSA Culture Results No MRSA Isolated 2 Days PERFORMED BY: [place] [address] PATHOLOGIST HUMAN RESOURCES FILE CLERK KOMAL COFFMAN M.D. Normal [facility] Comment on above: Performed By: #### V [id number], HGB, ALB, CUMRSA, A1C WTH eA #### [place] [address] [place] #### NICOTINE #### [facility] , Nicotine [Mass/volume] in Se rum or PlasmaOrdered By: Finn Ortez on 11-19-2023 Nicotine [Mass/Vol] <1.0 ng/mL . [facility] Comment on above: This test was develo ped and its performance characteristicsdetermined by [facility]. It has not been cleared orapproved by the Food and Drug Administration.Nicotine levels greater than 2.0 are consistent with theuse of tobacco or tobacco cessation products. Nicotine/Cotinine Bloodon Cotinine, Blood <1.0 Normal . [facility] Comment on above: Result Comment: This test was developed and its performance characteristics determined by [facility]. It has not been cleared or approved by the Food and Drug Administration. Cotinine levels greater than 20.0 are consistent with the use of tobacco or tobacco cessation products. Performed at: [facility] [address] [id number] [employer] Backhoe Operator: Vinh Almeida MD, Phone: [phone] PERFORMED BY: [place] [address] PATHOLOGIST HUMAN RESOURCES FILE CLERK KOMAL COFFMAN M.D. Performed By: #### V [id number], HGB, ALB, CUMRSA, A1C WT eA #### [address] #### NICOTINE #### [facility] , Nicotine, Blood <1.0 Normal . [facility] Comment on above: Result Comment: This test was developed and its performance characteristics determined by [facility]. It has not been cleared or approved by the Food and Drug Administration. Nicotine levels greater than 2.0 are consistent with the use of tobacco or tobacco cessation products. Performed By: #### V [id number], HGB, ALB, CUMRSA, A1C WT eA #### [place] [address] [place] #### NICOTINE #### [facility] , Vitamin D 25 Hydroxy Totalon 11-19-2023 Vitamin D 25 Hydroxy Total 51.6 ng/mL Normal 30-100 [facility] Comment on above: Result Comment: EDIE MIN D STATUS 25(OH)VITAMIN D RANGE (ng/mL) Deficient <20 Insufficient 20 to <30 Sufficient 30 to 100 Reference: Radha Vargas, Gisela RAMAN, et al. Evaluation,treatment, and prevention of vitamin D deficiency; an Endocrine Society clinical practice guideline. JCEM. 2010; 96(7):1911-30. PERFORMED BY: [place] [address] PATHOLOGIST HUMAN RESOURCES FILE CLERK KOMAL COFFMAN M.D. Performed By: #### V [id number], HGB, ALB, CUMRSA, A1C WTH eA #### [facility] [address] [place] [address] #### NICOTINE #### [facility] , Vitamin D+Metabolites [Mass/ volume] in Serum or PlasmaOrdered By: Finn Ortez on 11-19-2023 Vitamin D+Metabolites [Mass/Vol] 51.6 ng/mL 30-100 [facility] Comment on above: VITAMIN D STATUS 25( [place])VITAMIN D RANGE (ng/mL) Deficient <20 Insufficient 20 to <30Sufficient 30 to 100Reference: Giovanny CAMPOS,Radha HARPER, Gisela RAMAN, et al. Evaluation,treatment, and prevention of vitamin D deficiency; an Endocrine Society clinical practice guideline. JCEM. 2010; 96(7):1911-30. Wound methicillin resistant Staphylococcus aureus (MRSA) cultureOrdered By: Finn Ortez on 11-19-2023 MRSA isol Org specific cx Ql (Unsp spec) [facility] Bilirubin Test strip Ql (U)O rdered By: Karen Cardoso on 09-15-2023 Bilirubin Ql (U) Negative Negative [facility] Color of Urine by AutoOrdere d By: Karen Cardoso on 09-15-2023 Color (U) Yellow Normal Yellow [facility] Comment on above: Order Comment: Name Collection Type:: Collection Method Unknown Performed By: #### U A, CUU #### [facility] [address] Ketones Auto test strip (U) [Mass/Vol]Ordered By: Karen Cardoso on 09-15-2023 Ketones (U) [Mass/Vol] Trace High Negative [facility] Nitrite Test strip Ql (U)Ord ered By: Karen Cardoso on 09-15-2023 Nitrite Ql (U) Negative Negative [facility] Protein Auto test strip (U) [Mass/Vol]Ordered By: Karen Cardoso on 09-15-2023 Protein (U) [Mass/Vol] Negative Negative [facility] Specific gravity Auto test s trip (U) [Rel density]Ordered By: Karen Cardoso on 09-15-2023 Specific gravity (U) [Rel density] 1.007 1.001-1.03 0 [facility] Urinalysison 09-15-2023 Appearance (U) Clear Normal Clear [facility] Comment on above: Order Comment: Name Collection Type:: Collection Method Unknown Performed By: #### U A, CUU #### [facility] [address] [place] [address] [place] Bilirubin,Urine Negative Normal Negative [facility] Comment on above: Order Comment: Name Collection Type:: Collection Method Unknown Performed By: #### U A, CUU #### [facility] [address] [place] [id number] [place] Glucose Ql (U) Normal Normal Normal [facility] Comment on above: Order Comment: Name Collection Type:: Collection Method Unknown Performed By: #### U A, CUU #### [facility] [address] [place] [address] [place] Ketones Ql (U) Trace High Negative [facility] Comment on above: Order Comment: Name Collection Type:: Collection Method Unknown Performed By: #### U A, CUU #### [facility] [address] [place] [address] [place] Leukocyte esterase Test strip Ql (U) Negative Normal Negative [facility] Comment on above: Order Comment: Name Collection Type:: Collection Method Unknown Performed By: #### U A, CUU #### [facility] [address] [place] [address] [place] Nitrite,Urine Negative Normal Negative [facility] Comment on above: Order Comment: Name Collection Type:: Collection Method Unknown Performed By: #### U A, CUU #### [place] [address] [place] Occult Blood,Urine 2+ High Negative [facility] Comment on above: Order Comment: Name Collection Type:: Collection Method Unknown Result Comment: PERF ORMED BY: [place] [address] PATHOLOGIST HUMAN RESOURCES FILE CLERK KOMAL COFFMAN M.D. Performed By: #### U A, CUU #### [place] [address] [place] Protein,Urine Negative Normal Negative [facility] Comment on above: Order Comment: Name Collection Type:: Collection Method Unknown Performed By: #### U A, CUU #### [address] Specificy [place],Urine 1.007 Normal 1.001-1.03 0 [facility] Comment on above: Order Comment: Name Collection Type:: Collection Method Unknown Performed By: #### U A, CUU #### [place] [address] [place] Urobilinogen,Urine Normal Normal Normal [facility] Comment on above: Order Comment: Name Collection Type:: Collection Method Unknown Performed By: #### U A, CUU #### [place] [address] [place] Urine Cultureon 09-15-2023 Bacteria identified Cx Nom (U) 50,000 colonies/ml mixed bacterial skin contaminants 2 Days PERFORMED BY: [place] [address] PATHOLOGIST HUMAN RESOURCES FILE CLERK KOMAL COFFMAN M.D. Normal [facility] Comment on above: Performed By: #### U A, CUU #### [place] [address] [place] Urine clarity by refractomet ry automatedOrdered By: Karen Cardoso on 09-15-2023 Clarity Refractometry automated (U) Clear Clear [facility] Urine culture routineOrdered By: Karen Cardoso on 05-20-2024 Bacteria identified Cx Nom (U) 2 Days [facility] Urine glucose measurement by automated test strip (mass/volume)Ordered By: Karen Cardoso on 09-15-2023 Glucose Auto test strip (U) [Mass/Vol] Normal mg/dL Normal [facility] Urine hemoglobin detection b y automated test stripOrdered By: Karen Cardoso on 09-15-2023 Hemoglobin Auto test strip Ql (U) 2+ High Negative [facility] Urine leukocyte esterase det ection by automated test stripOrdered By: Karen Cardoso on 09-15-2023 Leukocyte esterase Auto test strip Ql (U) Negative Negative [facility] Urine pH measurement by auto mated test stripOrdered By: Karen Cardoso on 09-15-2023 pH (U) 5.5 [pH] Normal 5.0-9.0 [facility] Comment on above: Order Comment: Name Collection Type:: Collection Method Unknown Performed By: #### U A, CUU #### [facility] [address] [place] [address] Urobilinogen Auto test strip (U) [Mass/Vol]Ordered By: Karen Cardoso on 09-15-2023 Urobilinogen (U) [Mass/Vol] Normal mg/dL Normal [facility] BI MAMMOGRAM SCREENING TOMOS YBRISSAIS BILATERALon 07-24-2023 BI MAMMOGRAM SCREENING TOMOSYNTHESIS BILATERAL [...] IS VERY IMPORTANT TO YOUR HEALTH. THE [place] [employer]ET[employer] GUIDELINES RECOMMEND THAT WOMEN 40 [...] Right Hip bone density obtained with a [employer] whole body system: Region BMD Young-Adult Age-Matched [...] Left Forearm bone density obtained with a [employer] whole body system: Region BMD Young-Adult Age-Matched [...] AP Spine bone density obtained with a [employer] whole body system: Region BMD Young-Adult Age-Matched [...] Basophils (Bld) [#/Vol] 0.0 10 3/uL 0.0-0.1 [facility] Basophils/100 WBC Auto (Bld) on 06-23-2023 Basophils/100 WBC (Bld) 0.4 % 0.2-2.0 [facility] Cholesterol in LDL Calc [Mas s/Vol]on 06-23-2023 Cholesterol in LDL [Mass/Vol] 104.0 mg/dL [facility] Comment on above: <100 mg/dl [id number] 0-129 mg/dl NEAR OR ABOVE [id number] mg/dl BORDERLINE [id number] mg/dl HIGH>190 mg/dl VERY HIGH Cholesterol in VLDL Calc [Ma ss/Vol]on 06-23-2023 Cholesterol in VLDL [Mass/Vol] 19.8 mg/dL [facility] Eosinophils/100 WBC Auto (Bl d)on 06-23-2023 Eosinophils/100 WBC (Bld) 1.8 % 0.9-7.0 [facility] Erythrocyte distribution wid th Auto (RBC) [Ratio]on 06-23-2023 Erythrocyte distribution width (RBC) [Ratio] 14.1 % 11.0-15.0 [facility] Estimated glomerular filtrat ion rate (GFR) non- Americanon 06-23-2023 GFR/1.73 sq M.predicted among non-blacks MDRD (S/P/Bld) [Vol rate/Area] mL/min/{1.73_m2} >=60 [facility] Globulin Calc (S) [Mass/Vol] on 06-23-2023 Globulin (S) [Mass/Vol] 3.6 g/dL [facility] Glucose mean value [Mass/vol ume] in Blood Estimated from glycated hemoglobinon 06-23-2023 Average glucose Estimated from glycated hemoglobin (Bld) [Mass/Vol] 114 mg/dL [facility] Hematocrit Auto (Bld) [Volum e fraction]on 06-23-2023 Hematocrit (Bld) [Volume fraction] 44.3 % 36.0-48.0 [facility] Hemoglobin [Mass/volume] in Bloodon 06-23-2023 Hemoglobin (Bld) [Mass/Vol] 14.0 g/dL 12.0-16.0 [facility] Laboratory - Chemistry and C hemistry - challengeon 06-23-2023 Albumin [Mass/Vol] 3.7 g/dL 3.4-5.0 [facility] ALP [Catalytic activity/Vol] 88 U/L 46-116 [facility] ALT [Catalytic activity/Vol] 29 U/L 14-59 [facility] AST [Catalytic activity/Vol] 18 U/L 15-37 [facility] Bilirubin [Mass/Vol] 0.6 mg/dL 0.2-1.0 [facility] Calcium [Mass/Vol] 9.1 mg/dL 8.5-10.1 [facility] Chloride [Moles/Vol] 104 mmol/L 98-107 [facility] Cholesterol [Mass/Vol] 196 mg/dL <=200 [facility] Cholesterol in HDL [Mass/Vol] 73 mg/dL 40-60 [facility] Comment on above: > or =60 mg/dl - LOW CARDIOVASCULAR RISK<40 mg/dl - HIGH CARDIOVASCULAR RISK CO2 [Moles/Vol] 30.4 mmol/L 21.0-32.0 [facility] Creatinine [Mass/Vol] 0.67 mg/dL 0.55-1.02 [facility] GFR/1.73 sq M.predicted MDRD (S/P/Bld) [Vol rate/Area] mL/min/{1.73_m2} >=60 [facility] Glucose [Mass/Vol] 97 mg/dL 74-106 [facility] Potassium [Moles/Vol] 3.8 mmol/L 3.5-5.1 [facility] Protein [Mass/Vol] 7.3 g/dL 6.4-8.2 [facility] Sodium [Moles/Vol] 145 mmol/L 136-145 [facility] Triglyceride [Mass/Vol] 99 mg/dL <=150 [facility] Urea nitrogen [Mass/Vol] 13.0 mg/dL 7.0-18.0 [facility] Urea nitrogen/Creatinine [Mass ratio] 19.4 mg/mg [facility] Laboratory - Hematology and Cell countson 06-23-2023 HbA1c (Bld) [Mass fraction] 5.6 % 4.5-6.2 [facility] Comment on above: ADA RECOMMENDED LIMI T 4.0 - 6.0ADA THERAPEUTIC TARGET < 7.0ACTION SUGGESTED> 7.0 Immature granulocytes/100 WBC (Bld) 0.8 % 0.0-0.5 [facility] Leukocytes [#/volume] correc main for nucleated erythrocytes in Blood by Automated counon 06-23-2023 WBC corrected for nucl RBC Auto (Bld) [#/Vol] 9.6 10 3/uL 4.0-11.0 [facility] Lymphocytes Auto (Bld) [#/Vo l]on 06-23-2023 Lymphocytes (Bld) [#/Vol] 1.8 10 3/uL 1.2-3.8 [facility] Lymphocytes/100 WBC Auto (Bl d)on 06-23-2023 Lymphocytes/100 WBC (Bld) 18.7 % 20.5-60.0 [facility] MCH Auto (RBC) [Entitic mass ]on 06-23-2023 MCH (RBC) [Entitic mass] 28.4 pg 26.7-34.0 [facility] MCHC Auto (RBC) [Mass/Vol]on 06-23-2023 MCHC (RBC) [Mass/Vol] 31.6 g/dL 29.9-35.2 [facility] MCV Auto (RBC) [Entitic vol] on 06-23-2023 MCV (RBC) [Entitic vol] 89.9 fL 81.0-99.0 [facility] Monocytes Auto (Bld) [#/Vol] on 06-23-2023 Monocytes (Bld) [#/Vol] 0.8 10 3/uL 0.3-0.8 [facility] Monocytes/100 WBC Auto (Bld) on 06-23-2023 Monocytes/100 WBC (Bld) 7.9 % 1.7-12.0 [facility] Neutrophils Auto (Bld) [#/Vo l]on 06-23-2023 Neutrophils (Bld) [#/Vol] 6.8 10 3/uL 1.4-6.5 [facility] Neutrophils/100 WBC Auto (Bl d)on 06-23-2023 Neutrophils/100 WBC (Bld) 70.4 % 43.0-75.0 [facility] No Panel Informationon 06-23 Eosinophils # (Auto) 0.2 10 3/uL 0.0-0.7 [facility] Immature Granulocyte # (Auto) 0.08 10 3/uL 0.00-0.03 [facility] Platelet mean volume Auto (B ld) [Entitic vol]on 06-23-2023 Platelet mean volume (Bld) [Entitic vol] 8.6 fL 9.5-13.5 [facility] Platelets Auto (Bld) [#/Vol] on 06-23-2023 Platelets (Bld) [#/Vol] 362 10 3/uL 150-450 [facility] RBC Auto (Bld) [#/Vol]on RBC (Bld) [#/Vol] 4.93 10 6/uL 4.20-5.40 [facility] Serum or plasma albumin/glob ulin mass ratioon 06-23-2023 Albumin/Globulin [Mass ratio] 1.0 {ratio} [facility] Serum or plasma anion gap de terminationon 06-23-2023 Anion gap [Moles/Vol] 14.4 mmol/L [facility] Serum or plasma total choles terol/high density lipoprotein (HDL) cholesterol mass amador 06-23-2023 Cholesterol.total/C holesterol in HDL [Mass ratio] 2.7 {ratio} [facility] Comment on above: 3.3 - 4.4 LOW RISK4. 4 - 7.1 AVERAGE RISK7.1 - 11.0 MODERATE RISK>11.0 HIGH RISK XR hip RT min 2V(w/wo pelvis )*on 06-13-2023 XR hip RT min 2V(w/wo pelvis)* [facility] [place] [address] [place] [address] XRay Report Signed Patient: Antonino Torres MR#: [id number] : 1955 Acct:[id number] Age/Sex: 67 / F ADM Date: 06/13/23 [place] [facility] [place] Type: [facility] Attending Dr: Finn Ortez II, MD [...] Silvina Rolon M.D.06/13/2023 12:57 PM Dictation Location: [place] [address] Transcribed By: [facility] 06/13/23 1257 Dictated By: Silvina Rolon MD 06/13/23 1255 Signed By: 06/13/23 1257 Normal [facility] CT CSPINE WO CONon CT CSPINE WO [...] DONYA BIGGS Date: 2022-08-27 17:05 Normal [facility] CT HEAD WO CONon 08-27-2022 CT [...] ALMA FRIEDMAN Date: 2022-08-27 17:02 Normal [facility] XR HIP LT 2 3V W [...] KAREN CANO Date: 2022-08-27 17:40 Normal [facility] XR hip RT min 2V(w/wo pelvis )*on 07-12-2022 XR hip RT min 2V(w/wo pelvis)* [facility] [employer] Other XR hip RT min 2V(w/wo pelvis)* [facility] [employer] Other XR hip RT min 2V(w/wo pelvis)* [address] [place] [address] [employer] Other XR hip RT min 2V(w/wo pelvis)* [place] [address] [employer] Other XR hip RT min 2V(w/wo pelvis)* XRay Report [employer] Other XR hip RT min 2V(w/wo pelvis)* Signed [employer] Other XR hip RT min 2V(w/wo pelvis)* Patient: Antonino Torres MR#: [id number] [employer] Other XR hip RT min 2V(w/wo pelvis)* [address] [employer] Other XR hip RT min 2V(w/wo pelvis)* : 1955 Acct:[id number] [employer] Other XR hip RT min 2V(w/wo pelvis)* Age/Sex: 66 / F ADM Date: 07/12/22 [employer] Other XR hip RT min 2V(w/wo pelvis)* Loc: [facility] Room: Type: [facility] [employer] Other XR hip RT min 2V(w/wo pelvis)* Attending Dr: Finn Ortez II, MD [employer] Other XR hip RT min 2V(w/wo pelvis)* Copies to: Finn Ortez MD [employer] Other XR hip RT min 2V(w/wo pelvis)* Ordering Provider: Finn Ortez MD [employer] Other XR hip RT min 2V(w/wo pelvis)* Date of Service: 07/12/22 [employer] Other XR hip RT min 2V(w/wo pelvis)* XR/XR hip RT min 2V(w/wo pelvis)*: Right hip pain [employer] Other XR hip RT min 2V(w/wo pelvis)* XR hip RT min 2V(w/wo pelvis)* 07/12/2022 10:08 AM [employer] Other XR hip RT min 2V(w/wo pelvis)* SIGNS AND SYMPTOMS: Right hip pain, right inguinal pain [employer] Other XR hip RT min 2V(w/wo pelvis)* PROTOCOL: Frontal radiograph the pelvis with crosstable lateral view of the right hip [employer] Other XR hip RT min 2V(w/wo pelvis)* COMPARISON: None [employer] Other XR hip RT min 2V(w/wo pelvis)* FINDINGS: [employer] Other XR hip RT min 2V(w/wo pelvis)* 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 There is no hardware complication or malalignment. [employer] Other XR hip RT min 2V(w/wo pelvis)* The bony ring of the pelvis is grossly intact. Degenerative changes are noted in the lumbar spine [employer] Other XR hip RT min 2V(w/wo pelvis)* and sacroiliac joints. There is enthesophyte formation at the greater trochanters and iliac wings. [employer] Other XR hip RT min 2V(w/wo pelvis)* There is mild narrowing of the right hip joint space. [employer] Other XR hip RT min 2V(w/wo pelvis)* XR/XR hip RT min 2V(w/wo pelvis)* [employer] Other XR hip RT min 2V(w/wo pelvis)* IMPRESSION: [employer] Other XR hip RT min 2V(w/wo pelvis)* No fracture or dislocation. [employer] Other XR hip RT min 2V(w/wo pelvis)* Multifocal degenerative change is noted, as above. [employer] Other XR hip RT min 2V(w/wo pelvis)* Impression dictated by: Justen Jenkins M.D.07/12/2022 1:35 PM [employer] Other XR hip RT min 2V(w/wo pelvis)* Dictation Location: [place] [address] [employer] Other XR hip RT min 2V(w/wo pelvis)* Transcribed By: SAGAR 07/12/22 [facility] [employer] Other XR hip RT min 2V(w/wo pelvis)* Dictated By: Justen Jenkins II, MD 07/12/22 [facility] [employer] Other XR hip RT min 2V(w/wo pelvis)* Signed By: [employer] Other XR hip RT min 2V(w/wo pelvis)* 07/12/22 [facility] [employer] Other CBC AUTO DIFFon 03-12-2022 BASO # 0.1 103/ul Normal 0.0-0.1 [facility] Comment on above: Performed By: #### D ATCBC #### [facility] [address] [place] [address] Dr. David Phillips Basophils/100 WBC (Bld) 1.0 % Normal 0.2-2.0 [facility] Comment on above: Performed By: #### D ATCBC #### [facility] [address] [place] [address] Dr. David Phillips EO # 0.2 103/ul Normal 0.0-0.7 [facility] Comment on above: Performed By: #### D ATCBC #### [facility] [address] [place] [address] Dr. David Phillips Eosinophils/100 WBC (Bld) 3.7 % Normal 0.9-7.0 [facility] Comment on above: Performed By: #### D ATCBC #### [facility] [address] [place] [address] Dr. David Phillips Erythrocyte distribution width (RBC) [Ratio] 13.1 % Normal 11.0-15.0 [facility] Comment on above: Performed By: #### D ATCBC #### [facility] [address] [place] [address] Dr. David Phillips Hematocrit (Bld) [Volume fraction] 41.6 % Normal 36.0-48.0 [facility] Comment on above: Performed By: #### D ATCBC #### [facility] [address] [place] [address] Dr. David Phillips Hemoglobin (Bld) [Mass/Vol] 13.6 g/dL Normal 12.0-16.0 [facility] Comment on above: Performed By: #### D ATCBC #### [facility] [address] [place] [address] Dr. David Phillips IG # 0.01 10e3/ul Normal 0.00-0.03 [facility] Comment on above: Performed By: #### D ATCBC #### [facility] [address] [place] [address] Dr. David Phillips IG % 0.2 % Normal 0.0-0.5 [facility] Comment on above: Performed By: #### D ATCBC #### [facility] [address] [place] [address] Dr. David Phillips LYMPH # 1.7 103/ul Normal 1.2-3.8 [facility] Comment on above: Performed By: #### D ATCBC #### [facility] [address] [place] [address] Dr. David Phillips Lymphocytes/100 WBC (Bld) 29.0 % Normal 20.5-60.0 [facility] Comment on above: Performed By: #### D ATCBC #### [facility] [address] [place] [address] Dr. David Phillips MCH (RBC) [Entitic mass] 28.9 pg Normal 26.7-34.0 [facility] Comment on above: Performed By: #### D ATCBC #### [facility] [address] [place] [address] Dr. David Phillips MCHC (RBC) [Mass/Vol] 32.7 g/dL Normal 29.9-35.2 [facility] Comment on above: Performed By: #### D ATCBC #### [facility] [address] [place] [address] Dr. David Phillips MCV (RBC) [Entitic vol] 88.3 fL Normal 81.0-99.0 [facility] Comment on above: Performed By: #### D ATCBC #### [facility] [address] [place] [address] Dr. David Phillips MONO # 0.5 103/ul Normal 0.3-0.8 [facility] Comment on above: Performed By: #### D ATCBC #### [facility] [address] [place] [address] Dr. David Phillips Monocytes/100 WBC (Bld) 7.7 % Normal 1.7-12.0 [facility] Comment on above: Performed By: #### D ATCBC #### [facility] [address] [place] [address] Dr. David Phillips NEUT # 3.4 103/ul Normal 1.4-6.5 [facility] Comment on above: Performed By: #### D ATCBC #### [facility] [address] [address] [address] David Phillips Neutrophils/100 WBC (Bld) 58.4 % Normal 43.0-75.0 [facility] Comment on above: Performed By: #### D ATCBC #### [facility] [address] [place] [address] [address] David Phillips Platelet mean volume (Bld) [Entitic vol] 9.0 fL Critically low 9.5-13.5 [facility] Comment on above: Performed By: #### D ATCBC #### [facility] [address] [place] [address] Dr. David Phillips PLT 273 103/ul Normal 150-450 [facility] Comment on above: Performed By: #### D ATCBC #### [facility] [address] [place] [address] Dr. David Phillips RBC 4.71 106/ul Normal 4.20-5.40 [facility] Comment on above: Performed By: #### D ATCBC #### [facility] [address] [place] [address] Dr. David Phillips WBC 5.9 103/ul Normal 4.0-11.0 [facility] Comment on above: Performed By: #### D ATCBC #### [facility] [address] [place] [address] Dr. David Phillips BRIANNA- BMP WITH LIPIDon 2021 Anion gap [Moles/Vol] 6.8 mmol/L Normal [facility] Comment on above: Performed By: #### D ATCBC #### [facility] [address] [place] [address] Dr. David Phillips Calcium [Mass/Vol] 8.6 mg/dL Normal 8.5-10.1 [facility] Comment on above: Performed By: #### D ATCBC #### [facility] [address] [place] [address] Dr. David Phillips Chloride [Moles/Vol] 105 mmol/L Normal 98-107 [facility] Comment on above: Performed By: #### D ATCBC #### [facility] [address] [address] [address] David Phillips Cholesterol [Mass/Vol] 175 mg/dL Normal <=200 [facility] Comment on above: Performed By: #### D ATCBC #### [facility] [address] [address] [address] David Phillips Cholesterol in HDL [Mass/Vol] 68 mg/dL Critically high 40-60 [facility] Comment on above: Performed By: #### D ATCBC #### [facility] [address] [address] [address] David Phillips Cholesterol in LDL [Mass/Vol] 96.8 mg/dL Normal [facility] Comment on above: Performed By: #### D ATCBC #### [facility] [address] [address] [address] David Phillips CO2 [Moles/Vol] 32.2 mmol/L Critically high 21.0-32.0 [facility] Comment on above: Performed By: #### D ATCBC #### [facility] [address] [address] [address] David Phillips Creatinine [Mass/Vol] 0.63 mg/dL Normal 0.55-1.02 [facility] Comment on above: Performed By: #### D ATCBC #### [facility] [address] [address] [address] David Phillips EGFR-AF BELIZEAN >60 Normal >=60 [facility] Comment on above: Performed By: #### D ATCBC #### [facility] [address] [address] [address] David Phillips EGFR-NON AF BELIZEAN >60 Normal >=60 [facility] Comment on above: Performed By: #### D ATCBC #### [facility] [address] [address] [address] David Phillips Glucose [Mass/Vol] 97 mg/dL Normal 74-106 [facility] Comment on above: Performed By: #### D ATCBC #### [facility] [address] [address] [address] David Phillips HDL NORMAL > or = 60 mg/dl - LO W CARDIOVASCULAR RISK <40 mg/dl - HIGH CARDIOVASCULAR RISK Normal [facility] Comment on above: Performed By: #### D ATCBC #### [facility] [address] [address] [address] David Phillips LDL CALC NORMAL SEE BELOW Normal [facility] Comment on above: Result Comment: <100 mg/dl OPTIMAL 100 - 129 mg/dl NEAR OR ABOVE OPTIMAL 130 - 159 mg/dl BORDERLINE HIGH 160 - 189 mg/dl HIGH >190 mg/dl VERY HIGH Performed By: #### D ATCBC #### [facility] [address] [address] [address] David Phillips Potassium [Moles/Vol] 4.0 mmol/L Normal 3.5-5.1 [facility] Comment on above: Performed By: #### D ATCBC #### [facility] [address] [address] [address] David Phillips Sodium [Moles/Vol] 140 mmol/L Normal 136-145 [facility] Comment on above: Performed By: #### D ATCBC #### [facility] [address] [address] [address] David Phillips Triglyceride [Mass/Vol] 51 mg/dL Normal <=150 [facility] Comment on above: Performed By: #### D ATCBC #### [facility] [address] [address] [address] David Phillips Urea nitrogen [Mass/Vol] 17.0 mg/dL Normal 7.0-18.0 [facility] Comment on above: Performed By: #### D ATCBC #### [facility] [address] [address] [address] David Phillips Urea nitrogen/Creatinine [Mass ratio] 27.0 mg/mg Normal [facility] Comment on above: Performed By: #### D ATCBC #### [facility] [address] [address] [address] David Phillips VLDL CALC 10.2 mg/dL Normal [facility] Comment on above: Performed By: #### D ATCBC #### [facility] [address] [place] [address] Dr. David Phillips CBC AUTO DIFFon 02-07-2022 BASO # 0.1 103/ul Normal 0.0-0.1 [facility] Comment on above: Performed By: #### D ATCBC #### [facility] [address] [place] [address] Dr. David Phillips Basophils/100 WBC (Bld) 0.5 % Normal 0.2-2.0 [facility] Comment on above: Performed By: #### D ATCBC #### [facility] [address] [place] [address] Dr. David Phillips EO # 0.2 103/ul Normal 0.0-0.7 [facility] Comment on above: Performed By: #### D ATCBC #### [facility] [address] [place] [address] Dr. David Phillips Eosinophils/100 WBC (Bld) 1.4 % Normal 0.9-7.0 [facility] Comment on above: Performed By: #### D ATCBC #### [facility] [address] [place] [address] Dr. David Phillips Erythrocyte distribution width (RBC) [Ratio] 13.2 % Normal 11.0-15.0 [facility] Comment on above: Performed By: #### D ATCBC #### [facility] [address] [place] [address] Dr. David Phillips Hematocrit (Bld) [Volume fraction] 42.7 % Normal 36.0-48.0 [facility] Comment on above: Performed By: #### D ATCBC #### [facility] [address] [place] [address] Dr. David Phillips Hemoglobin (Bld) [Mass/Vol] 13.7 g/dL Normal 12.0-16.0 [facility] Comment on above: Performed By: #### D ATCBC #### [facility] [address] [address] [address] David Phillips IG # 0.04 10e3/ul Critically high 0.00-0.03 [facility] Comment on above: Performed By: #### D ATCBC #### [facility] [address] [address] [address] David Phillips IG % 0.4 % Normal 0.0-0.5 [facility] Comment on above: Performed By: #### D ATCBC #### [facility] [address] [address] [address] David Phillips LYMPH # 1.5 103/ul Normal 1.2-3.8 [facility] Comment on above: Performed By: #### D ATCBC #### [facility] [address] [place] [address] Dr. David Phillips Lymphocytes/100 WBC (Bld) 12.9 % Critically low 20.5-60.0 [facility] Comment on above: Performed By: #### D ATCBC #### [facility] [address] [place] [address] Dr. David Phillips MCH (RBC) [Entitic mass] 29.0 pg Normal 26.7-34.0 [facility] Comment on above: Performed By: #### D ATCBC #### [facility] [address] [place] [address] Dr. David Phillips MCHC (RBC) [Mass/Vol] 32.1 g/dL Normal 29.9-35.2 [facility] Comment on above: Performed By: #### D ATCBC #### [facility] [address] [place] [address] Dr. David Phillips MCV (RBC) [Entitic vol] 90.5 fL Normal 81.0-99.0 [facility] Comment on above: Performed By: #### D ATCBC #### [facility] [address] [place] [address] Dr. David Phillips MONO # 0.9 103/ul Critically high 0.3-0.8 [facility] Comment on above: Performed By: #### D ATCBC #### [facility] [address] [address] [address] David Phillips Monocytes/100 WBC (Bld) 7.5 % Normal 1.7-12.0 [facility] Comment on above: Performed By: #### D ATCBC #### [facility] [address] [address] [address] David Phillips NEUT # 8.8 103/ul Critically high 1.4-6.5 [facility] Comment on above: Performed By: #### D ATCBC #### [facility] [address] [place] [address] Dr. David Phillips Neutrophils/100 WBC (Bld) 77.3 % Critically high 43.0-75.0 [facility] Comment on above: Performed By: #### D ATCBC #### [facility] [address] [place] [address] Dr. David Phillips Platelet mean volume (Bld) [Entitic vol] 8.9 fL Critically low 9.5-13.5 [facility] Comment on above: Performed By: #### D ATCBC #### [facility] [address] [place] [address] Dr. David Phillips PLT 283 103/ul Normal 150-450 [facility] Comment on above: Performed By: #### D ATCBC #### [facility] [address] [place] [address] Dr. David Phillips RBC 4.72 106/ul Normal 4.20-5.40 [facility] Comment on above: Performed By: #### D ATCBC #### [facility] [address] [place] [address] Dr. David Phillips WBC 11.4 103/ul Critically high 4.0-11.0 [facility] Comment on above: Performed By: #### D ATCBC #### [facility] [address] [place] [address] Dr. David Phillips BRIANNA- BMP WITH LIPIDon 2021 Anion gap [Moles/Vol] 9.1 mmol/L Normal [facility] Comment on above: Performed By: #### D ATBMP #### [facility] [address] [address] [address] David Phillips Calcium [Mass/Vol] 9.0 mg/dL Normal 8.5-10.1 [facility] Comment on above: Performed By: #### D ATBMP #### [facility] [address] [address] [address] David Phillips Chloride [Moles/Vol] 103 mmol/L Normal 98-107 [facility] Comment on above: Performed By: #### D ATBMP #### [facility] [address] [address] [address] David Phillips Cholesterol [Mass/Vol] 183 mg/dL Normal <=200 [facility] Comment on above: Performed By: #### D ATBMP #### [facility] [address] [address] [address] David Phillips Cholesterol in HDL [Mass/Vol] 75 mg/dL Critically high 40-60 [facility] Comment on above: Performed By: #### D ATBMP #### [facility] [address] [address] [address] David Phillips Cholesterol in LDL [Mass/Vol] 95.2 mg/dL Normal [facility] Comment on above: Performed By: #### D ATBMP #### [facility] [address] [address] [address] David Phillips CO2 [Moles/Vol] 31.1 mmol/L Normal 21.0-32.0 [facility] Comment on above: Performed By: #### D ATBMP #### [facility] [address] [address] [address] David Phillips Creatinine [Mass/Vol] 0.71 mg/dL Normal 0.55-1.02 [facility] Comment on above: Performed By: #### D ATBMP #### [facility] [address] [address] [address] David Phillips EGFR-AF BELIZEAN >60 Normal >=60 [facility] Comment on above: Performed By: #### D ATBMP #### [facility] [address] [address] [address] David Phillips EGFR-NON AF BELIZEAN >60 Normal >=60 [facility] Comment on above: Performed By: #### D ATBMP #### [facility] [address] [address] [address] David Phillips Glucose [Mass/Vol] 108 mg/dL Critically high 74-106 [facility] Comment on above: Performed By: #### D ATBMP #### [facility] [address] [address] [address] David Phillips HDL NORMAL > or = 60 mg/dl - LO W CARDIOVASCULAR RISK <40 mg/dl - HIGH CARDIOVASCULAR RISK Normal [facility] Comment on above: Performed By: #### D ATBMP #### [facility] [address] [address] [address] David Phillips LDL CALC NORMAL SEE BELOW Normal [facility] Comment on above: Result Comment: <100 mg/dl OPTIMAL 100 - 129 mg/dl NEAR OR ABOVE OPTIMAL 130 - 159 mg/dl BORDERLINE HIGH 160 - 189 mg/dl HIGH >190 mg/dl VERY HIGH Performed By: #### D ATBMP #### [facility] [address] [address] [address] David Phillips Potassium [Moles/Vol] 4.2 mmol/L Normal 3.5-5.1 [facility] Comment on above: Performed By: #### D ATBMP #### [facility] [address] [address] [address] David Phillips Sodium [Moles/Vol] 139 mmol/L Normal 136-145 [facility] Comment on above: Performed By: #### D ATBMP #### [facility] [address] [address] [address] David Phillips Triglyceride [Mass/Vol] 64 mg/dL Normal <=150 [facility] Comment on above: Performed By: #### D ATBMP #### [facility] [address] [address] [address] David Phillips Urea nitrogen [Mass/Vol] 15.0 mg/dL Normal 7.0-18.0 [facility] Comment on above: Performed By: #### D ATBMP #### [facility] [address] [address] [address] David Phillips Urea nitrogen/Creatinine [Mass ratio] 21.1 mg/mg Normal [facility] Comment on above: Performed By: #### D ATBMP #### [facility] [address] [address] [address] David Phillips VLDL CALC 12.8 mg/dL Normal [facility] Comment on above: Performed By: #### D ATBMP #### [facility] [address] [place] [address] Dr. David Phillips GLYCOHEMOGLOBIN A1Con 2021 ADA RECOMMENDATION SEE BELOW Normal [facility] Comment on above: Result Comment: ADA RECOMMENDED LIMIT 4.0 - 6.0 ADA THERAPEUTIC TARGET < 7.0 ACTION SUGGESTED > 7.0 Performed By: #### D ATA1C #### [facility] [address] [place] [address] Dr. David Phillips Glucose [Mass/Vol] 111 mg/dL Normal [facility] Comment on above: Performed By: #### D ATA1C #### [facility] [address] [place] [address] Dr. David Phillips HbA1c (Bld) [Mass fraction] 5.5 % Normal 4.5-6.2 [facility] Comment on above: Performed By: #### D ATA1C #### [facility] [address] [place] [address] Dr. David Phillips SGOTon 02-07-2022 AST [Catalytic activity/Vol] 19 U/L Normal 15-37 [facility] Comment on above: Performed By: #### A LT, AST #### [facility] [address] [place] [address] Dr. David Phillips SGPTon 02-07-2022 ALT [Catalytic activity/Vol] 27 U/L Normal 14-59 [facility] Comment on above: Performed By: #### A LT, AST #### [facility] [address] [place], [place] [id number] Dr. David Phillips CBC AUTO DIFFon 11-28-2021 BASO # 0.0 103/ul Normal 0.0-0.1 [facility] Comment on above: Performed By: #### D ATCBC #### [facility] [address] [place] [address] Dr. David Phillips Basophils/100 WBC (Bld) 0.1 % Critically low 0.2-2.0 [facility] Comment on above: Performed By: #### D ATCBC #### [facility] [address] [place] [address] Dr. David Phillips EO # 0.0 103/ul Normal 0.0-0.7 [facility] Comment on above: Performed By: #### D ATCBC #### [facility] [address] [place] [address] Dr. David Phillips Eosinophils/100 WBC (Bld) 0.0 % Critically low 0.9-7.0 [facility] Comment on above: Performed By: #### D ATCBC #### [facility] [address] [place] [address] Dr. David Phillips Erythrocyte distribution width (RBC) [Ratio] 13.5 % Normal 11.0-15.0 [facility] Comment on above: Performed By: #### D ATCBC #### [facility] [address] [place] [address] Dr. David Phillips Hematocrit (Bld) [Volume fraction] 41.4 % Normal 36.0-48.0 [facility] Comment on above: Performed By: #### D ATCBC #### [facility] [address] [place] [address] Dr. David Phillips Hemoglobin (Bld) [Mass/Vol] 13.4 g/dL Normal 12.0-16.0 [facility] Comment on above: Performed By: #### D ATCBC #### [facility] [address] [place] [address] Dr. David Phillips IG # 0.07 10e3/ul Critically high 0.00-0.03 [facility] Comment on above: Performed By: #### D ATCBC #### [facility] [address] [place] [address] Dr. David Phillips IG % 0.5 % Normal 0.0-0.5 [facility] Comment on above: Performed By: #### D ATCBC #### [facility] [address] [place] [address] Dr. David Phillips LYMPH # 1.0 103/ul Critically low 1.2-3.8 [facility] Comment on above: Performed By: #### D ATCBC #### [facility] [address] [place] [address] Dr. David Phillips Lymphocytes/100 WBC (Bld) 7.1 % Critically low 20.5-60.0 [facility] Comment on above: Performed By: #### D ATCBC #### [facility] [address] [place] [address] Dr. David Phillips MCH (RBC) [Entitic mass] 28.8 pg Normal 26.7-34.0 [facility] Comment on above: Performed By: #### D ATCBC #### [facility] [address] [place] [address] Dr. David Phillips MCHC (RBC) [Mass/Vol] 32.4 g/dL Normal 29.9-35.2 [facility] Comment on above: Performed By: #### D ATCBC #### [facility] [address] [place] [address] Dr. David Phillips MCV (RBC) [Entitic vol] 88.8 fL Normal 81.0-99.0 [facility] Comment on above: Performed By: #### D ATCBC #### [facility] [address] [place] [address] Dr. David Phillips MONO # 0.3 103/ul Normal 0.3-0.8 [facility] Comment on above: Performed By: #### D ATCBC #### [facility] [address] [place] [address] Dr. David Phillips Monocytes/100 WBC (Bld) 1.9 % Normal 1.7-12.0 [facility] Comment on above: Performed By: #### D ATCBC #### [facility] [address] [address] [address] David Phillips NEUT # 12.9 103/ul Critically high 1.4-6.5 [facility] Comment on above: Performed By: #### D ATCBC #### [facility] [address] [address] [address] David Phillips Neutrophils/100 WBC (Bld) 90.4 % Critically high 43.0-75.0 [facility] Comment on above: Performed By: #### D ATCBC #### [facility] [address] [address] [address] David Phillips Platelet mean volume (Bld) [Entitic vol] 9.1 fL Critically low 9.5-13.5 [facility] Comment on above: Performed By: #### D ATCBC #### [facility] [address] [address] [address] David Phillips PLT 296 103/ul Normal 150-450 [facility] Comment on above: Performed By: #### D ATCBC #### [facility] [address] [address] [address] David Phillips RBC 4.66 106/ul Normal 4.20-5.40 [facility] Comment on above: Performed By: #### D ATCBC #### [facility] [address] [address] [address] David Phillips WBC 14.3 103/ul Critically high 4.0-11.0 [facility] Comment on above: Performed By: #### D ATCBC #### [facility] [address] [address] [address] David Phillips BRIANNA- BMP WITH LIPIDon 2021 Anion gap [Moles/Vol] 13.2 mmol/L Normal [facility] Comment on above: Performed By: #### D ATBMP #### [facility] [address] [address] [address] David Phillips Calcium [Mass/Vol] 9.0 mg/dL Normal 8.5-10.1 [facility] Comment on above: Performed By: #### D ATBMP #### [facility] [address] [address] [address] David Phillips Chloride [Moles/Vol] 105 mmol/L Normal 98-107 [facility] Comment on above: Performed By: #### D ATBMP #### [facility] [address] [address] [address] David Phillips Cholesterol [Mass/Vol] 191 mg/dL Normal <=200 [facility] Comment on above: Performed By: #### D ATBMP #### [facility] [address] [address] [address] David Phillips Cholesterol in HDL [Mass/Vol] 71 mg/dL Critically high 40-60 [facility] Comment on above: Performed By: #### D ATBMP #### [facility] [address] [address] [address] David Phillips Cholesterol in LDL [Mass/Vol] 107.4 mg/dL Normal [facility] Comment on above: Performed By: #### D ATBMP #### [facility] [address] [address] [address] David Phillips CO2 [Moles/Vol] 28.7 mmol/L Normal 21.0-32.0 [facility] Comment on above: Performed By: #### D ATBMP #### [facility] [address] [address] [address] David Phillips Creatinine [Mass/Vol] 0.62 mg/dL Normal 0.55-1.02 [facility] Comment on above: Performed By: #### D ATBMP #### [facility] [address] [address] [address] David Phillips EGFR-AF BELIZEAN >60 Normal >=60 [facility] Comment on above: Performed By: #### D ATBMP #### [facility] [address] [address] [address] David Phillips EGFR-NON AF BELIZEAN >60 Normal >=60 [facility] Comment on above: Performed By: #### D ATBMP #### [facility] [address] [address] [address] David Phillips Glucose [Mass/Vol] 128 mg/dL Critically high 74-106 [facility] Comment on above: Performed By: #### D ATBMP #### [facility] [address] [address] [address] David Phillips HDL NORMAL > or = 60 mg/dl - LO W CARDIOVASCULAR RISK <40 mg/dl - HIGH CARDIOVASCULAR RISK Normal [facility] Comment on above: Performed By: #### D ATBMP #### [facility] [address] [address] [address] David Phillips LDL CALC NORMAL SEE BELOW Normal [facility] Comment on above: Result Comment: <100 mg/dl OPTIMAL 100 - 129 mg/dl NEAR OR ABOVE OPTIMAL 130 - 159 mg/dl BORDERLINE HIGH 160 - 189 mg/dl HIGH >190 mg/dl VERY HIGH Performed By: #### D ATBMP #### [facility] [address] [address] [address] David Phillips Potassium [Moles/Vol] 3.9 mmol/L Normal 3.5-5.1 [facility] Comment on above: Performed By: #### D ATBMP #### [facility] [address] [address] [address] David Phillips Sodium [Moles/Vol] 143 mmol/L Normal 136-145 [facility] Comment on above: Performed By: #### D ATBMP #### [facility] [address] [address] [address] David Phillips Triglyceride [Mass/Vol] 63 mg/dL Normal <=150 [facility] Comment on above: Performed By: #### D ATBMP #### [facility] [address] [address] [address] David Phillips Urea nitrogen [Mass/Vol] 15.0 mg/dL Normal 7.0-18.0 [facility] Comment on above: Performed By: #### D ATBMP #### [facility] [address] [address] [address] David Phillips Urea nitrogen/Creatinine [Mass ratio] 24.2 mg/mg Normal [facility] Comment on above: Performed By: #### D ATBMP #### [facility] [address] [address] [address] David Phillips VLDL CALC 12.6 mg/dL Normal [facility] Comment on above: Performed By: #### D ATBMP #### [facility] [facility] [address] [address] [address] David Phillips GLYCOHEMOGLOBIN A1Con 2021 ADA RECOMMENDATION SEE BELOW Normal [facility] Comment on above: Result Comment: ADA RECOMMENDED LIMIT 4.0 - 6.0 ADA THERAPEUTIC TARGET < 7.0 ACTION SUGGESTED > 7.0 Performed By: #### D ATCBC #### [facility] [address] [place] [address] Dr. David Phillips Glucose [Mass/Vol] 105 mg/dL Normal [facility] Comment on above: Performed By: #### D ATCBC #### [facility] [address] [address] [address] David Phillips HbA1c (Bld) [Mass fraction] 5.3 % Normal 4.5-6.2 [facility] Comment on above: Performed By: #### D ATCBC #### [facility] [address] [place] [address] Dr. David Phillips SCREENING MAMMOGRAM W/GAIL, BILATERAL*on 06-11-2021 SCREENING MAMMOGRAM W/GAIL, BILATERAL* CLINICAL HISTORY: Screening Mammogram COMPARISON: [facility] from 2020, 2017, 2017, 2016 TECHNIQUE: 2D and 3D mammogram imaging of both breasts was performed. RESULT: DENSITY: There are scattered areas of fibroglandular density. There is no suspicious mass, asymmetry, architectural distortion, or calcification. No significant change since the prior mammograms. IMPRESSION: BIRADS 1 : NEGATIVE, NORMAL INTERVAL FOLLOW UP FOLLOW-UP: 12 months DENSITY: Scattered MAMMOGRAPHY IS VERY IMPORTANT TO YOUR HEALTH. THE CURRENT [place] [employer] GUIDELINES RECOMMENDS ANNUAL MAMMOGRAPHY BEGINNING AT AGE 40 THIS FACILITY USES A REMINDER SYSTEM TO ENSURE ALL PATIENTS RECEIVE REMINDER NOTIFICATIONS AT THE APPROPRIATE TIME BASED ON THE RECOMMENDATIONS OF THIS EXAM. Board Certified Radiologist. Accredited by the ACR and FDA. Report reported and signed by Trell Martin on 06/11/2021 1236 Normal [facility] [employer] LARGE JOINT/BURSA INJECTION AND/OR ASPIRATION: R hip [...] fashion. The patient was prepped with Chloraprep. 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 [employer] [facility] X-rays, weightbearin g AP pelvis and [...] sacroiliac joints demonstrate moderate evidence of osteoarthrosis. [facility] CBCon 02-25-2018 ABSOLUTE BAS 0.0 X10 Normal [facility] ABSOLUTE EOS 0.10 X10 Normal [facility] ABSOLUTE NEUTROPHIL COUNT 4.5 x10 Normal 1.0-7.0 [facility] Basophils/100 WBC Auto (Bld) 0.7 % Normal 0.0-2.0 [facility] DTYPE AUTO DIFF Normal [facility] Eosinophils/100 WBC Auto (Bld) 1.9 % Normal 0.0-11.0 [facility] Lymphocytes Auto #/vol (Bld) 1.80 X10 Normal [facility] Lymphocytes/100 WBC Auto (Bld) 25.1 % Normal 20.0-55.0 [facility] Monocytes Auto #/vol (Bld) 0.6 X10 Normal [facility] Monocytes/100 WBC Auto (Bld) 8.3 % Normal 0.0-10.0 [facility] Neutrophils/100 WBC Auto (Bld) 64.0 % Normal 37.0-75.0 [facility] Erythrocyte distribution width Auto Ratio (RBC) 13.4 % Normal 11.5-14.5 [facility] Hematocrit Auto Volume Fraction (Bld) 39.9 % Normal 36.0-48.0 [facility] Hemoglobin mass conc (Bld) 13.4 g/dL Normal 12.0-16.0 [facility] MCH Auto Entitic mass (RBC) 28.7 pg Normal 26.0-35.0 [facility] MCHC Auto mass conc (RBC) 33.5 g/dL Normal 27.0-37.0 [facility] MCV Auto Entitic volume (RBC) 85.7 fL Normal 80.0-100.0 [facility] Platelet mean volume Auto Entitic volume (Bld) 7.3 fL Low 7.4-11.0 [facility] Platelets Auto #/vol (Bld) 329 /cmm Normal 130.0-400. 0 [facility] RBC Auto #/vol (Bld) 4.66 /cmm Normal 4.0-5.4 [facility] WBC Auto #/vol (Bld) 7.0 /cmm Normal 3.6-11.0 [facility] CHEMISTRY, [facility] ALT enzyme act/vol 30 U/L Normal 9-52 [facility] Calcium mass conc 9.3 mg/dL Normal 8.4-10.2 [facility] Cholesterol in HDL mass conc 49 mg/dL Normal 33-75 [facility] Cholesterol in LDL mass conc 91 MG/DL Normal [facility] Cholesterol in VLDL mass conc 22 mg/dL Normal 5.0-25 [facility] Cholesterol mass conc 162 mg/dL Normal 107-217 [facility] Cholesterol.total/C holesterol in HDL mass ratio 3.31 {ratio} Normal [facility] Comment on above: Result Comment: RISK TOTAL/HDL RATIO MEN WOMEN1/2 AVERAGE 3.43 3.27AVERAGE 4.97 4.442X AVERAGE 9.55 7.053X AVERAGE 23.99 11.04 Creatinine mass conc 0.6 mg/dL Low 0.7-1.2 [facility] EST. GFR, >60 Normal [facility] EST. GFR,Non >60 Normal [facility] Gamma glutamyl transferase [Enzymatic activity/volume] in Serum or Plasma 18 IU/L Normal 12-43 [facility] GFR/1.73 sq M predicted among non-blacks MDRD vol rate/area (S/P/Bld) Average GFR for 60-69 years old = 85. Normal [facility] Comment on above: Result Comment: Disaster Or Damage Control Specialist karime Kidney disease, GFR = <60.Kidney failure, GFR = <15.The GFR estimate is not adjusted for extreme body surface area or acute process, nor has it been validated for women or ethnic groups other than and . Glucose mass conc 92 mg/dL Normal 70-100 [facility] Comment on above: Result Comment: NORM [place] <100 mg/dLPREDIABETES 101-126 mg/dLDIABETES 126 mg/dL or higher Potassium molar conc 4.3 mmol/L Normal 3.5-5.1 [facility] Sodium molar conc 142 mmol/L Normal 137-145 [facility] Triglyceride mass conc 111 mg/dL Normal 0-150 [facility] Urea nitrogen mass conc (Bld) 17 mg/dL Normal 7-20 [facility] HEMOGLOBIN A1Con 02-25-2018 Glucose mass conc 105 mg/dL Normal [facility] Hemoglobin A1c/Hemoglobin.tota l mass fraction (Bld) 5.3 % Normal 0-6 [facility] Comment on above: Result Comment: NORM [place] <5.7%PREDIABETES 5.7-6.4%DIABETES 6.5% OR HIGHER WRISTon 12-05-2017 WRIST Final ReportAccession No: [id number] Performed: Dec 05 2017 11:45AMExamination: RIGHT [...] GARY BLANCO D.O.Trans: abond : cc: Normal [facility] WRISTon 11-07-2017 WRIST Final ReportAccession No: [id number] Performed: Nov 07 2017 9:58AMExamination: RIGHT [...] MADIE LORENZO M.D.Trans: lcoope : cc: Normal [facility] XR WRIST RIGHT 3+ VIEWS (STA NDARD)on [...] angulation.Distal ulna intact.Carpal bones appear well positioned. [id number] arthritic changes seen of proximal carpal row, greatest laterally.IMPRESSION:1. Healing distal radial nondisplaced nonarticular transverse fracture now seen.2. Chronic tbjw-ro-vuimuvwy arthritic changes, greatest involving lateral carpal joints.ARR/trnWorkstation ID: [id number] by: ANDREZ ECHAVARRIA on FriOct 09, 2017 7:30:06 AM EDTTranscribed by: LANI EDWARDS on FriOct 09, 2017 9:26:53 AM EDTFinalized by: ANDREZ ECHAVARRIA on FriOct 09, 2017 4:08:57 PM EDT Normal [facility] Comment on above: Order Comment: Reaso n for exam?:rt wrist painInjury/Trauma or Illness?:Injury/TraumaHow long have you had these symptoms (acute/chronic)?:AcuteHistory of cancer?:unkSurgeries, chemotherapy, or radiation?:carpal tunnelType of Exam?:Subsequent/Follow-upMechanism of injury?:fall XR WRIST RIGHT 3 VIEWSon XR WRIST RIGHT 3 VIEWS EXAMINATION: XR WRIST RIGHT 3 VIEWS [id number] CLINICAL HISTORY: 61-year-old female with history of fall swelling right posterior wristFINDINGS/IMPRESSION: Comparison: Compared to none available.No definite acute fracture or malalignment of the right wrist.Focal soft tissue swelling dorsally is seen at the level of the carpal metacarpal articulation. No pathologic calcifications. Blunted appearance of the ulnar styloid could relate to remote trauma. Normal [facility] Mammogramon 11-07-2016 Mammogram Patient Name: Fe YIN : [id number]: [id number] Date: [id number] #: [id number] Class: OPhysician: Conchis COUCH Physician: , Study [...] results.The National Comprehensive Cancer Network and the [place] [employer] recommend annual screening mammograms for women age 40 and older.Dictated: Isidro Morrison 11/07/2016 15:09Transcribed: Isidro Morrison 11/07/2016 15:11Electronically Signed: Isidro Morrison 11/07/2016 15:11[facility] [place] [address] [email or web address], [place] [address] [email or web address] Vital Signs Date Time Vital Sign Value Performing Clinician Facility 01-05-2024 11:50-0400 Diastolic blood pressure 60 mm[Hg] DO Karen Cardoso Work Phone: [facility] 01-05-2024 11:50-0400 Heart rate 88 /min DO Karen Cardoso Work Phone: [facility] 01-05-2024 11:50-0400 Respiratory rate 16 /min DO Karen Cardoso Work Phone: [facility] 01-05-2024 11:50-0400 SaO2% (BldA) [Mass fraction] 96 % DO Karen Cardoso Work Phone: [facility] 01-05-2024 11:50-0400 Systolic blood pressure 114 mm[Hg] DO Karen Cardoso Work Phone: [facility] 01-05-2024 11:20-0400 Inhaled oxygen flow rate 1 L/min DO Karen Cardoso Work Phone: [facility] 01-05-2024 11:00-0400 Body temperature 98 [degF] DO Karen Cardoso Work Phone: [facility] 01-05-2024 06:20-0400 Body height 165.1 cm DO Karen Cardoso Work Phone: [facility] 01-05-2024 06:20-0400 Body weight 70 kg DO Karen Cardoso Work Phone: [facility] 12-25-2023 14:27-0400 Body height 165.1 cm DO Karen Cardoso Work Phone: [facility] 12-25-2023 14:27-0400 Body mass index (BMI) [Ratio] 25.7 kg/m2 DO Karen Cardoso Work Phone: [facility] 12-25-2023 14:27-0400 Body weight 70 kg DO Karen Cardoso Work Phone: [facility] 12-12-2023 09:09-0400 Body height 165.1 cm DO Karen Cardoso Work Phone: [facility] 12-12-2023 09:09-0400 Body mass index (BMI) [Ratio] 25.7 kg/m2 DO Karen Cardoso Work Phone: [facility] 12-12-2023 09:09-0400 Body temperature 97.4 [degF] DO Karen Cardoso Work Phone: [facility] 12-12-2023 09:09-0400 Body weight 70.3 kg DO Karen Cardoso Work Phone: [facility] 12-12-2023 09:09-0400 Diastolic blood pressure 76 mm[Hg] DO Karen Cardoso Work Phone: [facility] 12-12-2023 09:09-0400 Heart rate 76 /min DO Karen Cardoso Work Phone: [facility] 12-12-2023 09:09-0400 Respiratory rate 16 /min DO Karen Cardoso Work Phone: [facility] 12-12-2023 09:09-0400 SaO2% (BldA) [Mass fraction] 98 % DO Karen Cardoso Work Phone: [facility] 12-12-2023 09:09-0400 Systolic blood pressure 130 mm[Hg] DO Karen Cardoso Work Phone: [facility] 09-15-2023 13:54-0400 Body height 165.1 cm DO Karen Cardoso Work Phone: [facility] 09-15-2023 13:54-0400 Body mass index (BMI) [Ratio] 26.1 kg/m2 DO Karen Cardoso Work Phone: [facility] 09-15-2023 13:54-0400 Body temperature 97.3 [degF] DO Karen Cardoso Work Phone: [facility] 09-15-2023 13:54-0400 Body weight 71.21 kg DO Karen Cardoso Work Phone: [facility] 09-15-2023 13:54-0400 Diastolic blood pressure 78 mm[Hg] DO Karen Cardoso Work Phone: [facility] 09-15-2023 13:54-0400 Heart rate 81 /min DO Karen Cardoso Work Phone: [facility] 09-15-2023 13:54-0400 SaO2% (BldA) [Mass fraction] 97 % DO Karen Cardoso Work Phone: [facility] 09-15-2023 13:54-0400 Systolic blood pressure 118 mm[Hg] DO Karen Cardoso Work Phone: [facility] 06-26-2023 09:10-0500 Body height 165.1 cm DO Karen Cardoso Work Phone: [facility] 06-26-2023 09:10-0500 Body mass index (BMI) [Ratio] 26.6 kg/m2 DO Karen Cardoso Work Phone: [facility] 06-26-2023 09:10-0500 Body temperature 97.9 [degF] DO Karen Cardoso Work Phone: [facility] 06-26-2023 09:10-0500 Body weight 72.8 kg DO Karen Cardoso Work Phone: [facility] 06-26-2023 09:10-0500 Diastolic blood pressure 78 mm[Hg] DO Karen Cardoso Work Phone: [facility] 06-26-2023 09:10-0500 Heart rate 91 /min DO Karen Cardoso Work Phone: [facility] 06-26-2023 09:10-0500 Respiratory rate 18 /min DO Karen Cardoso Work Phone: [facility] 06-26-2023 09:10-0500 SaO2% (BldA) [Mass fraction] 98 % DO Karen Cardoso Work Phone: [facility] 06-26-2023 09:10-0500 Systolic blood pressure 128 mm[Hg] DO Karen Cardoso Work Phone: [facility] 06-13-2023 09:14-0500 Body height 165.1 cm DO Karen Cardoso Work Phone: [facility] 06-13-2023 09:14-0500 Body mass index (BMI) [Ratio] 26.1 kg/m2 DO Karen Cardoso Work Phone: [facility] 06-13-2023 09:14-0500 Body weight 71.21 kg DO Karen Cardoso Work Phone: [facility] 05-14-2023 08:15-0500 Body height 165.1 cm Finn Ortez II Other [facility] 12-12-2022 09:10-0400 Body height 165.1 cm Karen Maggiesrinivas Other [employer] [facility] [employer] Other 12-12-2022 09:10-0400 Body mass index (BMI) [Ratio] 27.12 kg/m2 Karen Maggiesrinivas Other [employer] Other 12-12-2022 09:10-0400 Body temperature 98.6 [degF] Karen Cardoso Other [employer] Other 12-12-2022 09:10-0400 Body weight 73.94 kg Karen Maggiesrinivas Other [employer] Other 12-12-2022 09:10-0400 Diastolic blood pressure 78 mm[Hg] Karen Cardoso Other [employer] Other 12-12-2022 09:10-0400 Respiratory rate 18 /min Karen Cardoso Other [employer] Other 12-12-2022 09:10-0400 SaO2% (BldA) [Mass fraction] 96 % Karen Cardoso Other [employer] Other 12-12-2022 09:10-0400 Systolic blood pressure 124 mm[Hg] Karen Cardoso Other [employer] Other 07-12-2022 11:00-0400 Body height 165.1 cm [employer] Other [employer] Other 07-12-2022 11:00-0400 Body mass index (BMI) [Ratio] 26.62 kg/m2 [employer] Other [employer] Other 07-12-2022 11:00-0400 Body weight 72.58 kg [employer] Other [employer] Other 06-13-2022 09:10-0500 Body height 165.1 cm Karen Cardoso Other [employer] Other 06-13-2022 09:10-0500 Body mass index (BMI) [Ratio] 27.29 kg/m2 Karen Cardoso Other [employer] Other 06-13-2022 09:10-0500 Body weight 74.39 kg Karen Cardoso Other [employer] Other 06-13-2022 09:10-0500 Diastolic blood pressure 80 mm[Hg] Karen Cardoso Other [employer] Other 06-13-2022 09:10-0500 Respiratory rate 18 /min Karen Cardoso Other [employer] Other 06-13-2022 09:10-0500 SaO2% (BldA) [Mass fraction] 98 % Karen Cardoso Other [employer] Other 06-13-2022 09:10-0500 Systolic blood pressure 132 mm[Hg] Karen Cardoso Other [employer] Other 02-12-2022 10:50-0400 Body height 165.1 cm Karen Cardoso Other [employer] Other 12-06-2021 11:30-0400 Body height 165.1 cm Karen Cardoso Other [employer] Other 12-06-2021 11:30-0400 Body mass index (BMI) [Ratio] 25.62 kg/m2 Karen Cardoso Other [employer] Other 12-06-2021 11:30-0400 Body temperature 97.6 [degF] Karen Cardoso Other [employer] Other 12-06-2021 11:30-0400 Body weight 69.85 kg Karen Cardoso Other [employer] Other 12-06-2021 11:30-0400 Diastolic blood pressure 82 mm[Hg] Karen Cardoso Other [employer] Other 12-06-2021 11:30-0400 Respiratory rate 16 /min Karen Cardoso Other [employer] Other 12-06-2021 11:30-0400 SaO2% (BldA) [Mass fraction] 96 % Karen Cardoso Other [employer] Other 12-06-2021 11:30-0400 Systolic blood pressure 122 mm[Hg] Karen Cardoso Other [employer] Other 01-26-2021 09:12-0500 BMI (Body Mass Index) 28.06 kg/m2 [facility] 05-23-2020 09:12-0500 Body weight 76.48 kg [facility] 05-23-2020 09:12-0500 Height 165.1 cm [facility] 05-02-2020 12:42-0500 BMI (Body Mass Index) 28.36 kg/m2 [facility] 05-02-2020 12:42-0500 Body weight 77.29 kg [facility] 05-02-2020 12:42-0500 Height 165.1 cm [facility] 04-29-2020 14:49-0500 Body surface area Derived from formula 1.8 m2 [facility] 04-27-2020 08:58-0500 BMI (Body Mass Index) 26.63 kg/m2 [facility] 04-27-2020 08:58-0500 Body weight 72.58 kg [facility] 04-27-2020 08:58-0500 Height 165.1 cm [facility] 07-27-2018 08:54-0400 BMI (Body Mass Index) 26.48 kg/m2 [facility] 07-27-2018 08:54-0400 Body Temperature 98.49 [degF] [facility] 07-27-2018 08:54-0400 Body weight 73.85 kg [facility] 07-27-2018 08:54-0400 BP Diastolic 60 mm[Hg] [facility] 07-27-2018 08:54-0400 BP Systolic 110 mm[Hg] [facility] 07-27-2018 08:54-0400 Height 167 cm [facility] 07-27-2018 08:54-0400 Pulse (Heart Rate) 65 /min [facility] 07-27-2018 08:54-0400 Pulse Oximetry 96 % [facility] 07-27-2018 08:54-0400 Respiratory Rate 16 /min [facility] 05-11-2018 15:19-0500 BMI (Body Mass Index) 26.57 kg/m2 [facility] Work Phone: 05-11-2018 15:19-0500 Body Temperature 97.3 [degF] [facility] Work Phone: 05-11-2018 15:19-0500 BP Diastolic 68 mm[Hg] [facility] Work Phone: 05-11-2018 15:19-0500 BP Systolic 118 mm[Hg] [facility] Work Phone: 05-11-2018 15:19-0500 Height [address] [facility] Work Phone: 05-11-2018 15:19-0500 Pulse (Heart Rate) 73 /min [facility] Work Phone: 05-11-2018 15:19-0500 Pulse Oximetry 97 % [facility] Work Phone: 05-11-2018 15:19-0500 Respiratory Rate 16 /min [facility] Work Phone: 05-11-2018 15:19-0500 Weight 74.12 kg [facility] Work Phone: 03-30-2018 13:16-0500 BMI (Body Mass Index) 26.7 kg/m2 [facility] Work Phone: 03-30-2018 13:16-0500 Body Temperature 97.7 [degF] [facility] Work Phone: 03-30-2018 13:16-0500 BP Diastolic 58 mm[Hg] [facility] Work Phone: 03-30-2018 13:16-0500 BP Systolic 116 mm[Hg] [facility] Work Phone: 03-30-2018 13:16-0500 Height 167 cm [facility] Work Phone: 03-30-2018 13:16-0500 Pulse (Heart Rate) 66 /min [facility] Work Phone: 03-30-2018 13:16-0500 Pulse Oximetry 97 % [facility] Work Phone: 03-30-2018 13:16-0500 Respiratory Rate 16 /min [facility] Work Phone: 03-30-2018 13:16-0500 Weight 74.[address] [facility] Work Phone: 12-05-2017 11:24-0400 BMI (Body Mass Index) 26.61 kg/m2 [facility] 12-05-2017 11:24-0400 BP Diastolic 78 mm[Hg] [facility] 12-05-2017 11:24-0400 BP Systolic 130 mm[Hg] [facility] 12-05-2017 11:24-0400 Height 162.6 cm [facility] 12-05-2017 11:24-0400 Pulse (Heart Rate) 57 /min [facility] 12-05-2017 11:24-0400 Weight 70.31 kg [facility] 11-07-2017 09:44-0400 BMI (Body Mass Index) 26.61 kg/m2 [facility] 11-07-2017 09:44-0400 Height 162.6 cm [facility] 11-07-2017 09:44-0400 Weight 70.31 kg [facility] 10-08-2017 14:41-0400 BMI (Body Mass Index) 26.61 kg/m2 [facility] 10-08-2017 14:41-0400 Height 162.6 cm [facility] 10-08-2017 14:41-0400 Weight 70.31 kg [facility] Encounters Encounter Date Encounter Type Care Provider Facility Start: 04-13-2024 ambulatory Folyd Garza acility:[facility] Start: 04-07-2024 End: 04-07-2024 ambulatory Finn Ortez II Facility:[facility] Start: 02-24-2024 End: 02-24-2024 ambulatory DO Karen Cardoso Work Phone: [place] Work Phone: Start: 02-24-2024 End: 02-24-2024 Patient encounter procedure DO Karen Cardoso Work Phone: [facility] Work Phone: Start: 02-10-2024 Registered Recurring DO Karen Cardoso Work Phone: [facility] Start: 02-05-2024 Non-patient / Non-visit DO Saurabh id Girsrinivas Work Phone[facility] Work [facility]: Start: 01-21-2024 End: 01-21-2024 ambulatory DO Karen Cardoso Work Phone: [place] Work Phone: Start: 01-21-2024 End: 01-21-2024 Patient encounter procedure DO Karen Cardoso Work Phone: [facility] Work Phone: Start: 01-05-2024 Non-patient / Non-visit DO Saurabh id Girvin Work Phone: [facility] Work Phone: Start: 01-05-2024 End: 01-05-2024 Admission to same day surgery center DO Karen Cardoso Work Phone: [facility] [place] Start: 01-05-2024 End: 01-05-2024 ambulatory DO Karen Cardoso Work Phone: [facility] Work Phone: Start: 12-30-2023 Registered Recurring DO Karen Cardoso Work Phone: [facility]- [facility] Start: 12-26-2023 End: 12-26-2023 ambulatory DO Karen Cardoso Work Phone: [place] Work Phone: Start: 12-26-2023 End: 12-26-2023 Patient encounter procedure DO Karen Cardoso Work Phone: [facility] Work Phone: Start: 12-25-2023 End: 12-25-2023 Patient encounter procedure DO Karen Cardoso Work Phone: [facility] Work Phone: Start: 12-25-2023 Registered Recurring DO Karen Cardoso Work Phone: [facility]-Physical Therapy [place] Start: 12-25-2023 End: 12-25-2023 ambulatory DO Kaern Cardoso Work Phone: [place] Work Phone: Start: 12-22-2023 End: 12-22-2023 Patient encounter procedure DO Karen Cardoso Work Phone: [facility]-Pre-Surgical Testing Work Phone: Start: 12-22-2023 End: 12-22-2023 ambulatory DO Karen Cardoso Work Phone: [facility] Work Phone: Start: 12-22-2023 Encounter for preprocedural laboratory examination Finn Ortez II [facility] Start: 12-19-2023 Non-patient / Non-visit DO Saurabh id Girsrinivas Work Phone: [facility] Physician [facility] Work Phone: Start: 12-19-2023 Non-patient / Non-visit DO Saurabh id Girvin Work Phone: [facility] Physician [facility] Work Phone: Start: 12-12-2023 Patient encounter status DO Da vipipo Cardoso Work Phone: [facility] Start: 12-12-2023 End: 12-12-2023 ambulatory DO Kaern Cardoso Work Phone: [place] Work Phone: Start: 12-12-2023 End: 12-12-2023 Patient encounter procedure DO Karen Cardoso Work Phone: [facility] Physician [facility] Work Phone: Start: 12-06-2023 Non-patient / Non-visit DO Saurabh id Girsrinivas Work Phone: [facility] Work Phone: Start: 11-20-2023 Registered Recurring DO Karen Cardoso Work Phone: [facility] Start: 11-19-2023 End: 11-19-2023 Patient encounter procedure DO Karen Cardoso Work Phone: [facility] Start: 11-19-2023 End: 11-19-2023 ambulatory DO Karen Cardoso Work Phone: [facility] Work Phone: Start: 11-19-2023 End: 11-19-2023 ambulatory DO Karen Cardoso Work Phone: [place] Work Phone: Start: 11-19-2023 End: 11-19-2023 Patient encounter procedure DO Karen Cardoso Work Phone: [facility] Work Phone: Start: 11-11-2023 Registered Recurring DO Karen Cardoso Work Phone: [facility] Start: 09-18-2023 End: 09-18-2023 ambulatory DO Karen Cardoso Work Phone: [place] Work Phone: Start: 09-18-2023 End: 09-18-2023 Patient encounter procedure DO Karen Cardoso Work Phone: [facility] Work Phone: Start: 09-15-2023 End: 09-15-2023 Patient encounter procedure DO Karen Serranosrinivas Work Phone: [facility] [place] Work Phone: Start: 09-15-2023 End: 09-15-2023 ambulatory DO Karen Cardoso Work Phone: [place] Work Phone: Start: 09-15-2023 End: 09-15-2023 Departed Referred DO Karen Cardoso Work Phone: [facility] [place] Work Phone: Start: 09-09-2023 End: 09-09-2023 ambulatory ANGELA DUBOSE Not Available Start: 09-09-2023 End: 09-09-2023 ambulatory TERRANCE S WOODARD Not Available Start: 08-29-2023 End: 08-30-2023 ambulatory JASON J NATAPRAWIRA Not Available Start: 08-20-2023 End: 08-20-2023 ambulatory TERRANCE S WOODARD Not Available Start: 07-24-2023 End: 07-24-2023 ambulatory JASON J NATAPRAWIRA Not Available Start: 07-10-2023 End: 07-10-2023 ambulatory TERRANCE S WOODARD Not Available Start: 06-26-2023 End: 06-26-2023 Patient encounter procedure DO Karen Cardoso Work Phone: [facility] Physician [facility] [place] Work Phone: Start: 06-25-2023 End: 06-25-2023 ambulatory MILAGROS LAI Not Available Start: 06-23-2023 Registered Recurring DO Karen Cardoso Work Phone: [facility] Start: 06-23-2023 Non-patient / Non-visit DO Saurabh Cardoso Work Phone: [facility] Physician [facility] Professional [employer] Work Phone: Start: 06-16-2023 End: 06-16-2023 ambulatory SHERYL COOPER Not Available Start: 06-13-2023 End: 06-13-2023 ambulatory DO Karen Cardoso Work Phone: [place] Work Phone: Start: 06-13-2023 End: 06-13-2023 Patient encounter procedure DO Karen Cardoso Work Phone: [facility] Physician [facility] Work Phone: Start: 05-14-2023 End: 05-14-2023 ambulatory Finn Pérez II Other [employer] Other Start: 05-14-2023 Office outpatient vi sit 15 minutes Finn Wood II [facility] Start: 05-14-2023 End: 05-14-2023 Patient encounter procedure DO Karen Cardoso Work Phone: [facility] Physician [facility]- Start: 04-15-2023 End: 04-15-2023 ambulatory Karen Cardoso Other [employer] Other Start: 04-15-2023 Telephone encounter Karen Cardoso [facility] [place] Start: 03-18-2023 Registered Recurring DO Karen Cardoso Work Phone: [facility] Start: 01-09-2023 End: 01-09-2023 ambulatory Karen Cardoso Other [employer] Other Start: 01-09-2023 Telephone encounter Karen Cardoso [facility] [place] Start: 12-17-2022 End: 12-17-2022 ambulatory Karen Cardoso Other [employer] Other Start: 12-17-2022 Telephone encounter Karen Cardoso [facility] [place] Start: 12-13-2022 End: 12-13-2022 ambulatory Karen Cardoso Other [employer] Other Start: 12-13-2022 Telephone encounter Karen Cardoso [facility] [place] Start: 12-12-2022 End: 12-12-2022 ambulatory Karen Cardoso Other [employer] Other Start: 12-12-2022 Office outpatient vi sit 25 minutes Karen Cardoso [facility] [place] Start: 09-02-2022 End: 09-02-2022 ambulatory Karen Cardoso Other [employer] Other Start: 09-02-2022 Telephone encounter Karen Cardoso [facility] [place] Start: 08-27-2022 End: 08-27-[address] KAREN CARDOSO Facility: Start: 08-01-2022 End: 08-01-2022 ambulatory Karen Cardoso Other [employer] Other Start: 08-01-2022 Telephone encounter Karen Cardoso [facility] [place] Start: 07-18-2022 End: 07-18-2022 ambulatory Finn Pérez II Other [employer] Other Start: 07-18-2022 Telephone encounter Finn Dalalisle II [facility] Start: 07-12-2022 FQHC visit new patient Finn Dalalsilvio hollingsworth II [facility] Start: 07-12-2022 End: 07-12-2022 ambulatory DO Karen Cardoso Work Phone: [facility] Work Phone: Start: 07-12-2022 End: 07-12-2022 Patient encounter procedure DO Karen Cardoso Work Phone: [facility] Start: 06-13-2022 End: 06-13-2022 ambulatory Karen Cardoso Other [employer] Other Start: 06-13-2022 Office outpatient vi sit 15 minutes Karen Cardoso [facility] [place] Start: 03-12-2022 Telephone encounter Karen Cardoso [facility] [place] Start: 03-12-2022 End: 03-13-[address] AL HA [employer] Other Start: 03-06-2022 End: 03-06-2022 ambulatory Karen Cardoso Other [employer] Other Start: 03-06-2022 Telephone encounter Karen Cardoso [facility] [place] Start: 02-12-2022 End: 02-12-2022 ambulatory Karen Cardoso Other [employer] Other Start: 02-12-2022 Telephone encounter Karen Cardoso [facility] [place] Start: 02-07-2022 Telephone encounter Karen Cardoso [facility] [place] Start: 02-07-2022 End: 02-08-[address] KAREN CARDOSO [employer] Other Start: 12-06-2021 End: 12-06-2021 ambulatory Karen Cardoso Other [employer] Other Start: 12-06-2021 Office outpatient vi sit 25 minutes Karen Cardoso [facility] [place] Start: 12-03-2021 End: 12-03-2021 ambulatory Karen Cardoso Other [employer] Other Start: 12-03-2021 Telephone encounter Karen Cardoso [facility] [place] Start: 11-28-2021 End: 11-29-[address] NONE LISTED REQUEST Facility: Start: 02-06-2021 End: 02-10-2021 ambulatory KAREN CARDOSO [facility] Start: 06-05-2020 End: 06-05-2020 Orders Only Annmarie Xavier Work Phone: [facility] Start: 05-23-2020 End: 05-23-2020 Office outpatient visit 15 minutes Chito Land Work Phone: [facility] Comment on above: Primary osteoarthrit is of right hip (Primary Dx); Greater trochanteric bursitis of right hip Start: 05-02-2020 End: 05-02-2020 Patient encounter procedure Chito Land Work Phone: [facility] Comment on above: Primary osteoarthrit is of right hip (Primary Dx); Greater trochanteric bursitis of right hip Start: 04-27-2020 End: 04-27-2020 Subsequent hospital visit by physician Chito Land Work Phone: [facility] Comment on above: Arrived Start: 04-27-2020 End: 04-27-2020 Office outpatient new 30 minutes Chito Land Work Phone: [facility] Comment on above: Primary osteoarthrit is of right hip (Primary Dx); Greater trochanteric bursitis of right hip; Right hip pain Start: 07-27-2018 End: 07-27-2018 Patient encounter procedure PAYTON JAMES [facility] Start: 07-27-2018 End: 07-27-2018 Office outpatient visit 15 minutes Payton James Work Phone: [facility] Comment on above: Acute swimmer's ear of both sides (Primary Dx) Start: 06-21-2018 End: 06-21-2018 Refill Payton James Work Phone: [facility] Start: 06-16-2018 End: 06-16-2018 Refill Payton James Work Phone: [facility] Start: 05-11-2018 Patient encounter procedure PAYTONKIMO JAMES [facility] Start: 05-11-2018 End: 05-11-2018 Office outpatient visit 15 minutes Payton James Work Phone: [facility] Comment on above: Recurrent major depr essive disorder, in partial remission (Primary Dx); Anxiety Start: 04-09-2018 End: 04-09-2018 Patient encounter procedure Pretty Francisffer [facility] Comment on above: Prescription Clarifi cation Start: 04-08-2018 End: 04-08-2018 Patient encounter procedure Other Other [facility] Start: 03-30-2018 End: 03-30-2018 Patient encounter procedure Provider Sebas [facility] Start: 03-30-2018 End: 03-30-2018 Office outpatient visit 15 minutes Paytonkimo Samaniegolynsey Work Phone: [facility] Comment on above: Recurrent major depr essive disorder, in partial remission (Primary Dx); Anxiety Start: 03-25-2018 End: 03-25-2018 Patient encounter procedure Paytonkimo Samaniegolynsey Work Phone: [facility] Comment on above: Medication Managemen t Start: 03-21-2018 End: 03-21-2018 Refill Paytonkimo James Work Phone: [facility] Start: 03-12-2018 Patient encounter procedure [facility] Start: 03-12-2018 End: 03-12-2018 Patient encounter procedure [place] Felipa James Work Phone: [facility] Comment on above: Arrived Start: 03-03-2018 Patient encounter procedure URIAH Felipa [facility] Start: 02-25-2018 Patient encounter procedure [place] NON-PATIENT [facility] Start: 12-05-2017 Patient encounter Sendy cr:[place] Start: 12-05-2017 End: 12-05-2017 Patient encounter Isidro Birch Work Phone: [facility] Start: 12-05-2017 End: 12-05-2017 Office outpatient visit 10 minutes Isidro Birch Work Phone: [facility] Start: 11-07-2017 Patient encounter Sendy Preston shaye:Freddy Start: 11-07-2017 End: 11-07-2017 Patient encounter Isidro Birch Work Phone: [facility] Start: 11-07-2017 End: 11-07-2017 Office outpatient visit 10 minutes Isidro Birch Work Phone: [facility] Start: 10-08-2017 End: 10-09-2017 Ambulatory Isidro Birch Work Phone: [facility] Start: 10-08-2017 End: 10-08-2017 Office outpatient visit 15 minutes Isidro Birch Work Phone: [facility] Start: 10-08-2017 End: 10-08-2017 Ambulatory Isidro Birch Work Phone: [facility] Start: 09-15-2017 End: 09-15-2017 Emergency department patient visit RODRIGO Arash [facility] Start: 05-27-2017 End: 05-27-2017 Ambulatory DESIRE BRITT [facility] Ambula tory Start: 02-18-2017 [facility] Start: 11-07-2016 End: 11-08-2016 Ambulatory [facility] Start: 12-13-2014 Patient encounter DESIRE MOREJON [facility] Procedures Date Procedure Procedure Detail Performing Clinician Start: 02-24-2024 Plain X-ray of right hip DO Karen Cardoso Work Phone: Start: 01-21-2024 Plain X-ray of right hip DO Karen Cardoso Work Phone: Start: 01-05-2024 Total replacement of right hip joint DO Karen Serranosrinivas Work Phone: Start: 01-05-2024 Plain X-ray of right hip DO Karen Serranosrinivas Work Phone: Start: 01-05-2024 Plain X-ray of right hip DO Karen Cardoso Work Phone: Start: 12-22-2023 Antibody screen Finn Ortez II Comment on above: Order Comment: Date of Surgery: [id number] Result Comment: PERF ORMED BY: [facility] [place] [address] PATHOLOGIST HUMAN RESOURCES FILE CLERK KOMAL COFFMAN M.D. Start: 11-19-2023 Methicillin resistan [...] Colonoscopy Annmarie lee Start: 03-25-2016 Mammography Annmarie lee Start: 01-24-2015 Colonoscopy Historical Provider Plan of Treatment Date Care Activity Detail Author Start: 03-10-2027 Tetanus [facility] Start: 10-08-2026 Screening colonoscopy [facility] Start: 10-08-2026 Screening for malign ant neoplasm of colon [facility] Start: 02-24-2024 Plain X-ray of right hip XR hi p RT min 2V(w/wo pelvis)* [facility] Start: 02-24-2024 XR Hip - right 2 Views [facility] Start: 01-21-2024 Plain X-ray of right hip XR hi p RT min 2V(w/wo pelvis)* [facility] Start: 01-21-2024 XR Hip - right 2 Views [facility] Start: 01-05-2024 [facility] Start: 01-05-2024 Hospital admission [facility] Start: 01-05-2024 Plain X-ray of right hip XR lo w pelvis w/RT x-table hip [facility] Start: 01-05-2024 XR Hip - right GE 2 Views [facility] Start: 01-05-2024 [facility] Start: 01-05-2024 Physical therapy procedure [facility] Start: 12-22-2023 [facility] Start: 11-19-2023 MRSA Culture MRSA Culture [facility] Start: 11-19-2023 Methicillin resistan t Staphylococcus aureus [Presence] in Unspecified specimen by Organism specific culture [facility] Start: 11-19-2023 [facility] Start: 09-15-2023 Bacteria identified in Urine by Culture [facility] Start: 09-15-2023 [facility] Start: 06-13-2023 Plain X-ray of right hip XR hi p RT min 2V(w/wo pelvis)* [facility] Start: 06-13-2023 XR Hip - right 2 Views [facility] Start: 11-27-2021 DEXA SCAN DEXA SCAN [facility] Work Phone: Start: 05-23-2020 End: 05-23-2020 Office Visit 05/23/2020 Office Visit Orthopaedics Chito Land MD [address] [place] [address] [phone] [facility] Start: 05-02-2020 End: 05-02-2020 Office Visit 05/02/2020 Office Visit Orthopaedics Chito Land MD [address] [place] [address] [place] [address] [phone] [facility] Start: 12-28-2019 Influenza vaccination INFLUENZA VACC INE (#1) [facility] Start: 12-28-2019 Influenza vaccinatio n given Sequential Influenza Vaccine (#1) [facility] Start: 10-07-2019 Pneumococcal vaccination [facility] Start: 03-12-2019 Protein mass conc MAMMOGRAM SC REENING DISCUSSION [facility] Work Phone: Start: 03-12-2019 Screening mammography MAMMOGRA M SCREENING DISCUSSION [facility] Start: 05-11-2018 End: 05-11-2018 Ambulatory 05/11/2018 Office Visit Family Medicine Payton James MD [address] [place] [address] [phone] [facility] Start: 03-30-2018 End: 03-30-2018 Ambulatory [facility] Comment on above: Arrived Start: 12-27-2017 Influenza vaccination SEQUENTI AL INFLUENZA VACCINE (#1) [facility] Start: 12-05-2017 End: 12-05-2017 Ambulatory 12/05/2017 Office Visit Orthopedic Surgery Isidro Birch MD [address] [place] [address] [phone] [facility] Start: 11-07-2017 End: 11-07-2017 Ambulatory 11/07/2017 Office Visit Orthopedic Surgery Isidro Birch MD [address] [place] [address] [phone] [facility] Start: 04-29-2017 Protein mass conc MAMMOGRAM SC REENING DISCUSSION [facility] Work Phone: Start: 04-29-2017 Screening for malign ant neoplasm of cervix [facility] Work Phone: Start: 03-25-2017 Screening mammography [facility]ammogram [facility] Start: 03-05-2017 History and physical examination, annual for health maintenance Wellness Visit [facility] Start: 01-25-2016 Colonoscopy COLORECTAL CAN CER SCREENING DISCUSSION [facility] Start: 01-25-2016 Protein mass conc COLON CANCER SCREENING DISCUSSION [facility] Start: 12-14-2015 Screening for malign ant neoplasm of colon Fecal occult blood test (FOBT,FIT) [facility] Start: 2014 Zoster vaccine hzv l esteban for subcutaneous use ZOSTER VACCINE [facility] Start: 2004 Administration of he rpes zoster vaccine Zoster Vaccines (1 of 2) [facility] Start: 2004 Colonoscopy COLON CANCER S CREENING DISCUSSION [facility] Start: 2004 Protein mass conc COLON CANCER SCREENING DISCUSSION [facility] Work Phone: Start: 2004 Screening for malign ant neoplasm of colon [facility] Start: 2004 Zoster vaccine hzv l esteban for subcutaneous use ZOSTER (SHINGLES) VACCINE (1 of 2) [facility] Start: 1994 Fasting lipid profile LIPID SCREENIN G [facility] Work Phone: Start: 1973 Third diphtheria, tetanus and acellular pertussis (DTaP) vaccination TDAP (ADULT) [facility] Work Phone: Start: 1972 Hepatitis C antibody , confirmatory test Hepatitis C Screening [facility] Start: 1972 Tetanus vaccination TETANUS [place] Work Phone: Start: 1970 COVID-19 Vaccine (1 of 2) COVID-19 Vaccine (1 of 2) [facility] Start: 1969 HIV screening HIV Screening [facility] Start: 10-07-1967 HIV screening HIV SCREENING DISCUSSION [facility] Work Phone: Start: 1954 Fall risk assessment Falls Risk Asse ssment [facility] Start: 1954 End: 1954 Hepatitis C antibody, confirmatory test HEPATITIS C VIRUS SCREENING [facility] Work Phone: Start: 1954 HEPATITIS C SCREENING HEPATITIS C SC REENING [facility] Start: 1954 Screening for malign ant neoplasm of cervix PAP SMEAR [facility] Bacteria identified in Urine by Culture [facility] Comprehensive metabo lic 1999 panel - Serum or Plasma [facility] Comprehensive metabo lic 1999 panel - Serum or Plasma [facility] Cotinine [Mass/volum e] in Serum or Plasma [facility] Glucose measurement estimated from glycated hemoglobin [facility] Hemoglobin [Mass/vol ume] in Blood [facility] End: 03-12-2018 MG Breast Views MAMMO SCREENING BILATERAL Routine Screening for breast cancer 1 Occurrences starting 03/12/2018 until 03/12/2018 [facility] Work Phone: Comment on above: 1 Occurrences starti ng 03/12/2018 until 03/12/2018 MG Breast Views MAMMO SCREENING BILATERAL Routine Screening for breast cancer 03/12/2018 1:05 PM EST [facility] Work Phone: Nicotine [Mass/volum e] in Serum or Plasma [facility] Patient Education Know your Meds [facility] Work Phone: End: 04-27-2020 Radiography of hip XR HIP WITH PELVIS RIGHT Imaging Routine Right hip pain 1 Occurrences starting 04/27/2020 until 04/27/2020 [facility] Comment on above: 1 Occurrences starti ng 04/27/2020 until 04/27/2020 Radiography of hip XR HIP WITH P JEFF RIGHT Imaging Routine Right hip pain 04/27/2020 9:13 AM EST [facility] Urine culture [facility] [place] [facility] End: 10-08-2017 XR Wrist Right 3+ Views (Standard) XR Wrist Right 3+ Views (Standard) Routine Left wrist pain Once for 1 Occurrences starting 10/08/2017 until 10/08/2017 [facility] XR Wrist Right 3+ Vi ews (Standard) XR Wrist Right 3+ Views (Standard) Routine Left wrist pain 10/08/2017 2:17 PM EDT [facility] Immunizations Immunization Date Immunization Notes Care Provider Alexia tracey 01-29-2021 COVID-19 mRNA, Comirnaty (Pfizer) DO Karen Cardoso Work Phone: [facility] 07-18-2020 COVID-19 Vaccine Pfi zer - Documentation Purposes Only aKren Cardoso Other [facility] 06-26-2020 COVID-19 Vaccine Pfi zer - Documentation Purposes Only Karen Cardoso Other [facility] 03-03-2018 influenza virus vaccine, unspecified formulation Chito Land [facility] 03-10-2017 diphtheria, tetanus toxoids and acellular pertussis vaccine, unspecified formulation Annmarie Xavier [facility] 03-10-2017 tetanus toxoid, redu jim diphtheria toxoid, and acellular pertussis vaccine, adsorbed Isidro [facility] 08-26-2013 tetanus toxoid, redu jim diphtheria toxoid, and acellular pertussis vaccine, adsorbed [facility] 01-26-2010 zoster vaccine, live DO Ronak Cardoso Work Phone: [facility] Payers Date Payer Category Payer Medicare MEDICARE ANTHEM HMO OR PPO MEDICARE ANTHEM HMO OR PPO xxxxxxxxxxxx 2017-Present [id number] 2017 Medicare [id number] 2015 Medicare [id number] 1959 Medicare [id number] 1959 Self-pay [id number] 1954 Unknown [id number] 1954 Unknown [id number] 1954 Unknown [id number] 1954 Unknown [id number] 1954 Unknown [id number] 1954 Unknown [id number] 1954 Unknown [id number] 1954 Unknown [id number] 9 1954 Unknown [id number] 2.16.840.1.139149.3.579.2.125 9 1955 Unknown [id number] 2.16.840.1.732672.3.579.2.125 9 1955 Unknown [id number] 2.16.840.1.113907.3.579.2.125 9 1955 Unknown [id number] 2.16.840.1.639905.3.579.2.125 9 1955 Unknown [id number] 2.16.840.1.088026.3.579.2.125 9 1955 Unknown [id number] 2.16.840.1.527129.3.579.2.125 9 Unknown [facility] [id number] Unknown [id number] 2.16.840.1.351166.3.579.2.593 Unknown [id number] 2.16.840.1.850604.3.579.2.593 Unknown [id number] 2.16.840.1.216667.3.579.2.593 Unknown [id number] 2.16.840.1.843610.3.579.2.531 Unknown [id number] 2.16.840.1.220474.3.579.2.531 Unknown [id number] 2.16.840.1.260651.3.579.2.531 Unknown [id number] 2.16.840.1.019929.3.579.2.531 Unknown [id number] 2.16.840.1.554938.3.579.2.531 Unknown [id number] 2.16.840.1.939701.3.579.2.531 Unknown [id number] 2.16.840.1.153608.3.579.2.531 Unknown [id number] 2.16.840.1.596643.3.579.2.531 Unknown [id number] 2.16.840.1.939255.3.579.2.531 Unknown [id number] 2.16.840.1.242068.3.579.2.531 Social History Date Type Detail Facility Start: 10-08-2017 End: 01-05-2024 Tobacco smoking status NHIS Never smoker [facility] Sex Assigned At Not on file [facility] Start: 03-03-2018 Alcohol Comment 2 beers a week [employer] Start: 12-05-2017 End: 04-27-2020 Tobacco use and exposure Never used [employer] Start: 12-05-2017 End: 04-27-2020 Alcohol intake Current drinker of alcohol (finding) [employer] [facility] Start: 09-25-2016 Alcohol Comment [facility] Sex Assigned At Sex Assigned At [employer] Other Start: 1955 Sex Assigned At Female [facility] NEGATED: Highlighted row [facility] Medical Equipment Procedure Code Equipment Code Equipment Origin al Text Equipment Identifier Dates Arthroplasty, hip, total, anterior approach Acetabular shell ()[id number] FDA Start: 01-05-2024 Arthroplasty, hip, total, anterior approach Orthopaedic bone screw, non-bioabsorbable, sterile ()[id number] FDA Start: 01-05-2024 Arthroplasty, hip, total, anterior approach Orthopaedic bone screw, non-bioabsorbable, sterile ()[id number] FDA Start: 01-05-2024 Arthroplasty, hip, total, anterior approach Orthopaedic bone screw, non-bioabsorbable, sterile ()[id number] FDA Start: 01-05-2024 Arthroplasty, hip, total, anterior approach Ceramic femoral head prosthesis ()[id number] FDA Start: 01-05-2024 Arthroplasty, hip, total, anterior approach Coated hip femur prosthesis, modular ()[id number] FDA Start: 01-05-2024 Arthroplasty, hip, total, anterior approach Non-constrained polyethylene acetabular liner ()[id number] FDA Start: 01-05-2024 Goals Date Patient Goal Desired [...] present for entire encounter. Karen Cardoso D.O. [facility] Work Phone: 1(160) 419-751605-20-2024 Evaluation note* Author Karen Cardoso [facility] Authored September 15, 2023 2:26p m The above note written by __ _Lina Bya____ acting as human recorder, note dictated by Dr. Armijo .I performed the above HPI, ROS, and Examination. I formulated and dictated the treatment plan and was present for entire encounter. Karen Cardoso D.O. [place] Work Phone: 1(931) 767-266402-29-2024 Evaluation note* Author Karen Cardoso [facility] Authored June 26, 2023 10:58am The above note written by __ _Lina Bay____ acting as human recorder, note dictated by Dr. Armijo .I performed the above HPI, ROS, and Examination. I formulated and dictated the treatment plan and was present for entire encounter. Karen Cardoso D.O. [place] Work Phone: 1(875) 516-734202-29-2024 Evaluation note* Author Karen Cardoso [facility] Authored June 26, 2023 10:58am The above note written by __ _Lina Bay____ acting as human recorder, note dictated by Dr. Armijo .I performed the above HPI, ROS, and Examination. I formulated and dictated the treatment plan and was present for entire encounter. Karen Cardoso D.O. Author Karen Cardoso [facility] Authored September 15, 2023 2:26p m The above note written by __ _Lina Bay____ acting as human recorder, note dictated by Dr. Armijo .I performed the above HPI, ROS, and Examination. I formulated and dictated the treatment plan and was present for entire encounter. Karen Cardoso D.O. [facility] Work Phone: 1(587) 946-944001-17-2024 Evaluation note* Encounter Date Diagnosis Assessment Notes [...] oral anti-inflammatorie s and Tylenol. Recommended utilizing [id number] oral anti-inflammatorie s. Recommended adjusting their Tylenol [...] injection well. 5. Follow up as needed [employer] Other 09-14-2023 Evaluation note* Encounter Date Diagnosis Assessment Notes Treatment Notes Treatment Clinical Notes Dec, Bipolar depression (ICD-10 - F31.9) [employer] Other 08-18-2023 Evaluation note* Encounter Date Diagnosis Assessment Notes Treatment Notes Treatment Clinical Notes Nov, Bipolar depression (ICD-10 - F31.9) Nov, Hyperlipidemia (ICD-10 - E78.5) [employer] Other 08-17-2023 Evaluation note* Encounter Date Diagnosis [...] that she was seeing a lady at [facility] but has not seen [...] Weight loss (ICD-10 - R63.4) Nov, Other prison (current) drug therapy (ICD-10 - Z79.899) [employer] Other 03-17-2023 Evaluation note* Encounter Date Diagnosis [...] consider looking at her hip joint further. [employer] Other 02-16-2023 Evaluation note* Encounter Date Diagnosis [...] hip She would like to see an lan specialist for her right hip. She had [...] her white blood cell count. 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 May, Other I did provide h er with a lab order today to have labs drawn prior to her appointment in November (2022). If she decides to have outreach lab drawn through the [facility] she should call and we will give her an order for just an AST/ALT. We discussed how much Calcium she should be taking, I did recommend she take 7987-7060 daily. Recommend Calcium Citrate. [employer] Other 11-09-2022 Evaluation note* Encounter Date Diagnosis Assessment Notes Treatment Notes Treatment Clinical Notes Feb, Hyperlipidemia (ICD-10 - E78.5) [employer] Other 10-18-2022 Evaluation note* Encounter Date Diagnosis [...] then we would refer her to a paper cap machine operator. 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 She admits to not being a healthy eater so she feels the walking helps. She is walking three miles almost daily. Nov, Bipolar depression (ICD-10 - F31.9) She voices that she began seeing Marily Fabrice for evaluation, she has Bipolar Depression. She voices that this combination of medication is working very well for her. [employer] Other 02-14-2022 NoteHISTORY: Bone density screening. COMPARISON: [...] and signed by Trell Martin on 06/11/2021 1237[facility] Medical SpecialistChief complaint+Reason for visit Narrative* Chief Complaint 2 MONTHS WANTS TO DI SCUSS SURGERY m16.11 z79.899 m81.0 review labs/medical clearance Hip pain Reason for Visit Primary osteoarthrit is of right hip Bipolar depression Encounter for pre-operative examination Hyperglycemia Hyperlipidemia Primary osteoarthritis of right hip Weight loss [facility] Work Phone: Chief complaint+Reason for visit Narrative* Chief Complaint 2 MONTHS WANTS TO DI SCUSS SURGERY m16.11 z98.895 m81.0 review labs/medical clearance Hip pain Preop - R JASON H&P RTHA Reason for Visit Primary osteoarthrit is of right hip Bipolar depression Encounter for pre-operative examination Hyperglycemia Hyperlipidemia Primary osteoarthritis of right hip Weight loss Primary osteoarthritis of right hip [place] Work Phone: Chief complaint+Reason for visit Narrative* Chief Complaint 2 MONTHS WANTS TO DI SCUSS SURGERY m16.11 z37.958 m81.0 review labs/medical clearance Hip pain Preop - R JASON H&P RTHA Prolonged Reason for Visit Primary osteoarthrit is of right hip Bipolar depression Encounter for pre-operative examination Hyperglycemia Hyperlipidemia Primary osteoarthritis of right hip Weight loss Primary osteoarthritis of right hip [place] Work Phone: Chief complaint+Reason for visit Narrative* Chief Complaint 2 MONTHS WANTS TO DI SCUSS SURGERY m16.11 z27.899 m81.0 review labs/medical clearance Hip pain Preop - R JASON H&P RTHA Prolonged Hip pain Hip pain Reason for Visit Primary osteoarthrit is of right hip Bipolar depression Encounter for pre-operative examination Hyperglycemia Hyperlipidemia Primary osteoarthritis of right hip Weight loss Primary osteoarthritis of right hip [facility] Work Phone: Chief complaint+Reason for visit Narrative* Chief Complaint 2 MONTHS WANTS TO DI SCUSS SURGERY m16.11 z03.893 m81.0 review labs/medical clearance Hip pain Preop [...] replacement surgery Status post right hip replacement [place] Work Phone: Chief complaint+Reason for visit Narrative* Chief Complaint review labs/medical clearance Hip pain Preop - R JASON H&P RTHA Prolonged Hip pain Hip pain 2 WK POST OP RTHA Z96.641 BH 4 WK RECHECK RTHA Z96.641 - Presence of right artificial hip joint Reason for Visit Bipolar depression Encounter for pre-operative examination Hyperglycemia Hyperlipidemia Primary osteoarthritis of right hip Weight loss Primary osteoarthritis of right hip Aftercare following right hip joint replacement surgery Status post right hip replacement Aftercare following right hip joint replacement surgery Status post right hip replacement [place] Work Phone: Evaluation noteNo InformationNortWills [facility] [employer] Other Evaluation noteNo assessment information available [facility] Work Phone: Evaluation note* Diagnosis Onset Date Resolution Status Greater trochanteric bursitis of right hip acute Primary osteoarthritis of right hip acute [place] Work Phone: History general Narrative - Reported* [...] Dr. Wu 02/23/2020 Hospitalization History see above [employer] Other History general Narrative - Reported* Type [...] repeat in 202902/23/2020 Hospitalization History see above [employer] Other Assessments Diagnosis Left wrist pain Pain [...] Date/ Time Advance Directives No July 18, 7:39am Advance Directive Response Recorded Date/ Time [...] findings. Additions if any: Chito Land MD, [facility] Strapper Operator - [facility] * Rachna Hunter - [...] Interval exam: XR right hip/pelvis reviewed from 12/31/20 History obtained from patient ASSESSMENT and PLAN: [...] from the last injection. Chito Land MD, [facility] Strapper Operator - [facility] * Corinne Sahffer - 05/23/2020 9:10 AM EST Referred by: [...] Additions if any: Chito Land MD, [facility] Strapper Operator - [facility] * Corinne Shaffer - 04/27/2020 [...] MAMMO SCREENING BILATERAL Payton James MD [address] [place] [address] Reason appt 07/12/22 at 10am pt needs consult to discuss right hip pain Diagnosis 1 Hip pain (M25.559) Referral Organization [facility] Referring Provider First Name Karen Referring Provider Last Name Walker Referring Provider Specialty Family Prac ernie Referred Organization [facility] Referred Provider Finn Ortez II Referred Address [address] [place],[address] Referred Provider Specialty Orthopedic S urgery Referral [...] 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 pt understands that she will be contacted to schedule this appt. Reason appt audiology con sult for decreased hearing Diagnosis 1 Decreased hearing (H 91.90) Referral Organization [facility] Karinain evelina Sheila Referring Provider First Name Karen Referring Provider Last Name Walker Referring Provider Specialty Family Sarah klein Referred Organization [facility] Referred Address ,[place], [place],[address] Referred Provider Specialty Audiologists Referral Priority Routine General Notes EngleDottie kraftorah 04/15/2023 10:18:38 AM > referral faxed to [facility] in Dr Lai' office. pt and [...] Primary osteoarthritis of right hip Chief Complaint review labs possible UTI Reason for Visit Bipolar depression Breast cancer screening by mammogram Hyperglycemia Hyperlipidemia Primary osteoarthritis of right hip Weight loss Chief Complaint review labs possible UTI Reason for Visit Bipolar depression Breast cancer screening by mammogram Hyperglycemia Hyperlipidemia Primary osteoarthritis of right hip Weight loss Dysuria Urinary frequency Chief Complaint BH review labs r35.0 r30.0 possible UTI Reason for Visit Bipolar depression Breast cancer screening by mammogram Hyperglycemia Hyperlipidemia Primary osteoarthritis of right hip Weight loss Dysuria Urinary frequency Chief Complaint review labs r35.0 r30.0 possible UTI 3 [...] section and content) DATE CREATED AUTHOR 10/20/2017 [facility] DATE CREATED AUTHOR AUTHOR'S ORGANIZ ATION 10/24/2017 [facility] DATE CREATED AUTHOR AUTHOR'S ORGANIZ ATION 11/12/2017 [facility] DATE CREATED AUTHOR AUTHOR'S ORGANIZ ATION 11/12/2017 [facility] DATE CREATED AUTHOR AUTHOR'S ORGANIZ ATION 12/20/2017 [facility] DATE CREATED AUTHOR AUTHOR'S ORGANIZ ATION 04/06/2018 [facility] DATE CREATED AUTHOR AUTHOR'S ORGANIZ ATION 07/30/2018 [facility] DATE CREATED AUTHOR AUTHOR'S ORGANIZ ATION 02/10/2021 [facility] DATE CREATED AUTHOR AUTHOR'S ORGANIZ ATION 06/11/2021 [facility] DATE CREATED AUTHOR AUTHOR'S ORGANIZ ATION 08/28/2022 [facility] DATE CREATED AUTHOR AUTHOR'S ORGANIZ ATION 09/10/2023 [facility] DATE CREATED AUTHOR AUTHOR'S ORGANIZ ATION 04/15/2024 [facility] Reason for Visit (unrecogniz ed section and content) Reason Comments Medication Management Reason Comments Medication Refill Reason Comments Prescription Clarification Status Reason Specialty Diagnoses / Procedures Referre d By Contact Referred To Contact Closed Diagnoses Screening for breast cancer Procedures MAMMO SCREENING BILATERAL Payton James MD [address] [place] [id number] Reason Comments Depression Antonino feels pretty g ood. Holidays didn't affect her too much. Overall she feels pretty level. Reason Comments Joint Injection Reason Comments Pain Follow-up Reason Comments Ear Pain Reason Comments Pain Right hip pain Care Teams (unrecognized sec tion and content) Team Status: Active Member Role Status Almita Cardoso DO Primary Care Provider Active Team [...] Active Start: December 19, 2023 Team Status: Active Member Role [...] 2023 End: December 26, 2023 Team Status: Inactive Member Role Status Almita Cardoso DO Primary Care Provider Active S tart: January 05, 2024 End: January 05, 2024 Finn Ortez II, MD Attending Provider Active Start: January 05, 2024 End: January 05, 2024 Team Status: Active Member Role Status Almita Cardoso DO Primary Care Provider Active S tart: January 05, 2024 Finn Ortez II, MD Attending Provi ailyn, Other Provider Active Start: January 05, 2024 Team Status: Inactive Member Role Status Almita Cardoso DO Primary Care Provider Active S tart: January 21, 2024 End: January 21, 2024 Finn Ortez II, MD Attending Provider Active Start: January 21, 2024 End: January 21, 2024 Team Status: Active Member Role Status Almita Cardoso DO Primary Care Provide r, Attending Provider Active Start: February 05, 2024 Team Status: Active Member Role Status Almita Cardoso DO Primary Care Provider Active S tart: February 10, 2024 Floyd Hampton MD Attending Provider Active Start: February 10, 2024 Team Status: Inactive Member Role Status Almita Cardoso DO Primary Care Provider Active S tart: February 24, 2024 End: February 24, 2024 Finn Ortez II, MD Attending Provider Active Start: February 24, 2024 End: February 24, 2024 Team Status: Active Member Role Status Almita Cardoso DO Primary Care Provider Active S tart: February 24, 2024 Finn Ortez II, MD Attending Provider Active Start: February 24, 2024 Team Status: Inactive Member Role Status Almita Cadroso DO Primary Care Provide r, Attending Provider [...] Active Team Status: Active Member Role Status Almiat Cardoso DO Primary Care Provide r, Attending [...] Active Member Role Status Dates Karen Maggiesrinivas Primary Care Provider Active S tart: November 20, 2023 Floyd Hampton MD Attending Provider Active Start: November 20, 2023 Team Status: Active Member Role Status Dates Karen Cardoso DO Primary Care Provider Active S tart: December 30, 2023 Floyd Hampton MD Attending Provider Active Start: December 30, 2023 Team Status: Active Member Role Status [...] BE BASED ON THE PRIMARY CLINICAL RECORDS. [employer] provides no warranty or guarantee of the accuracy or completeness of information in this document.
--- NOTE | 2024-04-20 18:16 | CT_ITS ---
The [address] [address] Patient Name: ALETHA LIN MRN: [id number] date: 1955 Sex: F Assigned Patient Location: ED.MAIN Current Patient Location: Accession/Order Number: [id number] Exam Date: 04/20/2024 18:23 Report Date: 04/20/2024 18:48 At the request of: DANNI STEEN Procedure: CT head/brain wo con EXAM: CT head/brain wo con HISTORY: fall with head injury. COMPARISON: 08/27/2022 TECHNIQUE: Multiple thin computed tomograms of the head were obtained, with sagittal and coronal reconstructions. Radiation reduction technique and algorithms were utilized during the study. FINDINGS: The ventricles are near the upper limits of normal in size, the lateral ventricles are symmetric and the third ventricles in the midline. A very small cavum septum pellucidum is noted which is not felt to be significant. The sylvian fissures and cortical sulci are unremarkable. There is no evidence of an intracranial hemorrhage, mass lesion or apparent acute infarct. Small calcifications are seen in the anterior falx. The cerebellum and visualized brainstem appear unremarkable. The visualized paranasal sinuses are clear. The middle ears are aerated and the mastoid sinuses are clear. Mild frontal hyperostosis is noted. There is no apparent acute skull fracture. There is a focal soft tissue swelling with hematoma is seen in the subcutaneous soft tissues over the right forehead. CT/CT head/brain wo con IMPRESSION: There is no evidence of an intracranial hemorrhage, mass lesion or apparent acute infarct. The visualized sinuses are clear. There is no apparent acute skull fracture. Focal soft tissue swelling with laceration and hematoma are noted in the subcutaneous soft tissues along the forehead on the right. Except for the findings in the subcutaneous soft tissues, the overall appearance is unchanged. Electronically authenticated by: DANNY QUINONEZ Date: 04/20/2024 18:48
--- NOTE | 2024-04-20 18:16 | CT_ITS ---
The [address] [address] Patient Name: ALETHA LIN MRN: [id number] date: 1955 Sex: F Assigned Patient Location: ER Current Patient Location: Accession/Order Number: [id number] Exam Date: 04/20/2024 18:23 Report Date: 04/20/2024 19:33 At the request of: DANNI STEEN Procedure: CT cervical spine wo con EXAM: CT cervical spine wo con HISTORY: fall COMPARISON: CT cervical spine 09/14/2022 TECHNIQUE: Axial CT scans through the cervical spine were obtained without contrast administration. Sagittal and coronal reconstruction images were obtained. Dose reduction techniques were achieved by using automated exposure control and/or adjustment of mA and /or kV according to patient size and/or use of iterative reconstruction technique. FINDINGS: No acute fracture or posttraumatic malalignment is seen. The dens and lateral masses of C1 are symmetric. There is mild retrolisthesis of C5 on C6 and mild anterolisthesis of C3 on C4 and T2 on T3. Multilevel endplate, uncovertebral and facet arthrosis are seen. Findings are most pronounced at C5-6 and C6-7 level. Disc space narrowing, severe at C5-6, C6-7; moderate at C4-5; mild at C6-7 and upper thoracic levels. No significant spinal canal narrowing. There are multilevel neural foraminal narrowing, severe at left C3-4, bilateral C5-6; moderate at right C4-5, bilateral C6-7; mild at left C2-3, right C3-4, secondary to uncovertebral and facet arthropathy. There are severe degenerative changes of atlantoaxial joint. The prevertebral soft tissue space appears normal. Visualized neck shows no mass or adenopathy. Diminutive thyroid gland with a few low-attenuation nodules in bilateral lobes. Visualized lung apices are clear. CT/CT cervical spine wo con IMPRESSION: No visualized acute cervical spine abnormality. Stable multilevel cervical spondylosis, as described. Diminutive thyroid gland with a few low-attenuation nodules in bilateral lobes. Recommend nonemergent thyroid ultrasound for further evaluation. Electronically authenticated by: KRISTY UNLU Date: 04/20/2024 19:33
--- NOTE | 2024-04-20 18:18 | ED.HEATRA1 ---
HPI HPI - Head Injury General Chief complaint: Head Injury Stated complaint: HEAD INJURY Time Seen by Provider: 04/20/24 18:02 Source: patient Mode of arrival: walk-in Limitations: no limitations History of Present Illness HPI Narrative: Patient is a 68-year-old female who presents to the emergency department for the evaluation of a head injury that occurred just prior to arrival at home. She states she tripped into the corner of a door frame and hit her forehead. She did not fall to the ground or have any other associated injuries. She has minimal pain to the right side of the neck. She has no pain over the posterior cervical spine, back or extremities. She is ambulatory. She is not anticoagulated. She arrives with a hematoma to the right forehead. No lacerations, visual changes, loss of consciousness, nausea or vomiting. Related Data Home Medications ?Medication ?Instructions ?Recorded ?Confirmed buspirone 5 mg tablet 5 mg PO TID 12/19/23 12/19/23 desvenlafaxine succinate 25 mg 25 mg PO DAILY 12/19/23 12/19/23 tablet,extended release 24 hr simvastatin 20 mg tablet 20 mg PO DAILY 12/19/23 12/19/23 trazodone 50 mg tablet 50 mg PO BEDTIME PRN sleep 12/19/23 12/19/23 Previous Rx's ?Medication ?Instructions ?Recorded cephalexin 500 mg capsule 500 mg PO Q8H 7 days #21 caps 12/19/23 naproxen 250 mg tablet 250 mg PO BID PRN pain #20 tabs 12/19/23 ondansetron 4 mg disintegrating 4 mg PO Q8H PRN nausea and 12/19/23 tablet vomiting #10 tabs tamsulosin 0.4 mg capsule (Flomax) 0.4 mg PO DAILY #10 caps 12/19/23 Allergies Allergy/AdvReac Type Severity Reaction Status Date / Time acetaminophen (From Percocet) AdvReac Severe restless Verified 04/20/24 18:12 legs. oxycodone (From Percocet) AdvReac Severe restless Verified 04/20/24 18:12 legs. Opioid HPI Opioid Management Most Recent Pain and Opioid Data: Last Pain Scale 6 04/20/24 19:00 04/20/24 Last MAR Pain Assessment 04/20/24 18:55 Review of Systems ROS Constitutional Denies: fever or chills Ears, nose, mouth, and throat Denies: throat pain or nasal congestion Cardiovascular Denies: chest pain Respiratory Denies: shortness of breath Gastrointestinal Denies: nausea or vomiting Musculoskeletal Reports: neck pain; Denies: back pain Integumentary/Breast Denies: rash Neurological Denies: headache, numbness in extremities or weakness in extremities Hematologic/Lymphatic Denies: easy bruising or easy bleeding PFSH PFS Social History Little interest or pleasure in doing things: not at all Feeling down, depressed, or hopeless: not at all Exam Narrative Exam Narrative: Gen.: Awake, alert, in no distress Head: Normocephalic, swelling noted to the right forehead with no ecchymosis. ENT: Moist mucous membranes, hematoma to the right forehead with no lacerations. No nasal injury or dental injury. Minimal tenderness of the right paraspinal muscles of the cervical spine with no posterior midline tenderness Respiratory: No respiratory distress Extremities: Moves extremities equally Psych: Normal mood and affect Neuro: No focal neuro deficit Skin: Warm, dry, intact Constitutional Vital Signs, click to edit/add: Last Vital Signs Temp 98.1 F 04/20/24 18:07 Pulse 83 04/20/24 19:00 Resp 14 04/20/24 19:00 BP 127/70 04/20/24 19:00 Pulse Ox 99 04/20/24 19:00 O2 Del Method Room Air 04/20/24 19:00 Course Vital Signs Vital signs: Vital Signs Temperature 98.1 F 04/20/24 18:07 Pulse Rate 94 H 04/20/24 18:07 Respiratory Rate 16 04/20/24 18:07 Blood Pressure 150/82 H 04/20/24 18:07 Pulse Oximetry 96 04/20/24 18:07 Oxygen Delivery Method Room Air 04/20/24 18:07 Temperature 98.1 F 04/20/24 18:07 Pulse Rate 83 04/20/24 19:00 Respiratory Rate 14 04/20/24 19:00 Blood Pressure 127/70 04/20/24 19:00 Pulse Oximetry 99 04/20/24 19:00 Oxygen Delivery Method Room Air 04/20/24 19:00 MDM - Head Injury MDM Narrative Medical decision making narrative: CTs of the head and C-spine are unremarkable per the radiologist. Patient given Tylenol on arrival. She is hemodynamically stable with a benign neuroexam. Ice was applied to the area. Follow-up with PCP and return to the ER if symptoms change or worsen. She was given close head injury instructions for home. SUPERVISED APC VISIT, PHYSICIAN ATTESTATION: Based on the medical record the care appears appropriate. ? Medical Records Attestation: I reviewed the patient's medical records. Imaging Data CT scan - head: Attestation: I have reviewed the pertinent imaging results. Radiologist's impression: ITS Impressions Head CT 04/20/24 18:16 IMPRESSION: There is no evidence of an intracranial hemorrhage, mass lesion or apparent acute infarct. The visualized sinuses are clear. There is no apparent acute skull fracture. Focal soft tissue swelling with laceration and hematoma are noted in the subcutaneous soft tissues along the forehead on the right. Except for the findings in the subcutaneous soft tissues, the overall appearance is unchanged. Electronically authenticated by: DANNY QUINONEZ Date: 04/20/2024 18:48 CT cervical spine: Radiologist's impression: ITS Impressions Cervical Spine CT 04/20/24 18:16 IMPRESSION: No visualized acute cervical spine abnormality. Stable multilevel cervical spondylosis, as described. Diminutive thyroid gland with a few low-attenuation nodules in bilateral lobes. Recommend nonemergent thyroid ultrasound for further evaluation. Electronically authenticated by: KRISTY UNLTal Date: 04/20/2024 19:[address] 04/20/24 18:16 IMPRESSION: There is no evidence of an intracranial hemorrhage, mass lesion or apparent acute infarct. The visualized sinuses are clear. There is no apparent acute skull fracture. Focal soft tissue swelling with laceration and hematoma are noted in the subcutaneous soft tissues along the forehead on the right. Except for the findings in the subcutaneous soft tissues, the overall appearance is unchanged. Electronically authenticated by: DANNY QUINONEZ Date: 04/20/2024 18:48 Discharge Plan Discharge Chief Complaint: Head Injury Clinical Impression: Closed head injury Patient Disposition: Home, Self-Care Time of Disposition Decision: 19:36 Condition: Good Prescriptions / Home Meds: No Action buspirone 5 mg tablet 5 mg PO TID desvenlafaxine succinate 25 mg tablet extended release 24 hr 25 mg PO DAILY simvastatin 20 mg tablet 20 mg PO DAILY trazodone 50 mg tablet 50 mg PO BEDTIME PRN (Reason: sleep) tamsulosin [Flomax] 0.4 mg capsule 0.4 mg PO DAILY Qty: 10 0RF naproxen 250 mg tablet 250 mg PO BID PRN (Reason: pain) Qty: 20 0RF ondansetron 4 mg tablet,disintegrating 4 mg PO Q8H PRN (Reason: nausea and vomiting) Qty: 10 0RF cephalexin 500 mg capsule 500 mg PO Q8H 7 Days Qty: 21 0RF Print Language: Persian Instructions: Head Injury (ED) Referrals: KAREN CARDOSO [Primary Care Provider] - 1 week
[2024-04-20] MEDS: ACETAMINOPHEN 500 MG TABLET 1000 MG PO (18:55)
[2024-04-20 19:00] VITALS: BP 127/70; PULSE 83; O2SAT 99
== END 2024-04-20 19:47 | disposition home or self-care (01) ==
PROVIDERS: Emergency Provider Emergency Medicine Emergency Medical Services; PCP Family Medicine
DX: S09.8XXA Other specified injuries of head, initial encounter (principal); M47.812 Spondylosis without myelopathy or radiculopathy, cervical region; W18.49XA Other slipping, tripping and stumbling without falling, initial encounter; W22.01XA Walked into wall, initial encounter
CPT/HCPCS: 70450; 72125; 99284

== ENCOUNTER 2024-04-30 08:46 | Outpatient (OUT) | payer MEDICARE, SELFPAY ==
--- NOTE | 2024-04-30 08:48 | US_ITS ---
The [address] [address] Patient Name: ALETHA LIN MRN: [id number] date: 1955 Sex: F Assigned Patient Location: [place] Current Patient Location: [place] Accession/Order Number: [id number] Exam Date: 04/30/2024 08:50 Report Date: 04/30/2024 14:16 At the request of: KAREN CARDOSO Procedure: US thyroid EXAMINATION: US thyroid HISTORY: Thyroid Nodules COMPARISON: No relevant comparison available. TECHNIQUE: Sonographic images of the thyroid gland were obtained. FINDINGS: The right thyroid lobe measures 3.6 x 1.1 x 1.2 cm. 3. Punctate cysts measuring up to 4 mm. Thyroid isthmus measures 2 mm no focal nodule Left thyroid lobe measures 3.4 x 1.3 x 1.1 cm. 2 focal nodules, the most suspicious Nodule 1:0.8 x 0.4 x 0.6 cm solid, hypoechoic, wide, smooth margins, no calcifications. TR 4 US/US thyroid IMPRESSION: 0.8 cm left thyroid TR 4 nodule TI-RADS: The [employer] TI-RADS committee's white paper recommendations for thyroid lesions classified as TR4 (moderately suspicious) are listed below: > 1.0 cm. Follow-up ultrasound in 1, 2, 3, and 5 years. > 1.5 cm. FNA. J. Am Lucia Radiol 2017;14:[id number]. Electronically authenticated by: KAREN CORREA Date: 04/30/2024 14:16
--- OUTSIDE RECORDS SUMMARY | 2024-04-30 09:08 | XMS_ITS | CCD ---
Author Organization [facility] Care Team Providers Care Stoker Erector Name Role Phone Desire Britt Unavailable [phone] DESIRE BRITT Unavailable Unavailab CHIKI Bagley Unavailable Autumn vailable CHIKI BRITT Unavailable Autumn vailable DEISRE BRITT Unavailable Unavailab le HAY, AMI Unavailable [...] Unavailable Kovolyan, Payton K Primary Care Provider [phone] KOVOLYAN, PAYTON K Attending Unavailable KOVOLYAN, PAYTON K Referring Unavailable KOVOLYAN, PAYTON K Attending Unavailable KOVOLYAN, PAYTON K Referring Unavailable KOVOLYAN, PAYTON K Attending Unavailable KOVOLYAN, PAYTON K Referring Unavailable KOVOLYAN, PAYTON K Attending Unavailable KOVOLYAN, PAYTON K Referring Unavailable KOVOLYAN, PAYTON K Primary Care Unavailable Karen Cardoso Primary Care Provider Chiki Britt Primary Care Provid er KAREN CARDOSO Primary Care Unavailable NIKATOSHAShantel JAQUELINE Attending Unavailable Karen Cardoso Unavailable DO Karen Cardoso Primary Care Provider MD Finn Ortez II Attending Provider [phone] Finn Ortez II Unavailable [phone] REQUEST, NONE LISTED Consulting Unavaila ble WALKER, [...] Provider MD Floyd Hampton Attending Provider [phone] MD Finn Ortez II Attending Provider SHERYL COOPER Attending Unavailable KAREN CARDOSO Referring Unavailable MILAGROS LAI Attending Unavailable TERRANCE WOODARD Attending Unavailable JASON JENSEN Attending Unavailable TERRANCE WOODARD Attending Unavailable JASON JENSEN Referring Unavailable JASON JENSEN Referring Unavailable TERRANCE WOODARD Attending Unavailable ANGELA DUBOSE Attending Unavailable DO Karen Cardoso Primary Care Provider MD Floyd Hampton Attending Provider DO Karen Cardoso Attending Provider Walker, DO Jones Primary Care Provider [phone] MD Floyd Hampton Attending Provider MD Finn Ortez II Attending Provider MD Floyd Hampton Attending Provider Girsrinivas, DO Jones Primary Care Provider [phone] MD Floyd Hampton Attending Provider Walker, DO Jones Primary Care Provider [phone] MD Finn Ortez II Attending Provider MD Floyd Hampton Attending Provider [phone] Pérez SHAFFER, Finn Clifford Admitting Unavailabl e Girsrinivas, [place] Primary Care Unavailable Pérez SHAFFER, Finn Clifford Attending Unavailabl e [place] II, Finn Clifford Admitting Unavailabl e Girvin, [place] Primary Care Unavailable Pérez II, Finn Clifford Attending Unavailabl e [place] II, Finn Clifford Admitting Unavailabl e Girvin, [place] Primary Care Unavailable [place] II, Finn Clifford Attending Unavailabl e Pérez II, Finn Clifford Ad[facility] [place] II, Finn Clifford Attending Unavailabl e Pérez II, Finn Clifford Admitting Unavailabl e Girvin, [place] Primary Care Unavailable [place] II, Finn Clifford Attending Unavailabl e [place] II, Finn M Admitting [facility]abl e [facility] [place] II, Finn Clifford Attending Unavailabl e [place] II, Finn M Attending [facility]ailabl e [facility] Un[facility] [place] II, Finn M Admitting Unavailabl e Pérez II, Finn M Admitting Unavailabl e Girvin, [place] Primary Care Unavailable [place] II, Finn Clifford Attending [facility]availabl e [facility] [place] [facility] Unavailable [facility], [place] Attending Unavailable [facility] Admitting Unavailable BertaFloyd weller Admitting Unavailab le BertaFloyd bermeo Attending Unavailab le [facility], [place] Primary [facility] Unavailable Allergies Allergy Classification Reported Allergen(s) Allergy Type Date of Onset Reaction(s) Facility (20 sources) acetaminophen / oxyCODONE; Translations: [OXYCODONE-ACETAM INOPHEN] Drug Allergy 5 Itching [facility] (20 sources) Acetaminophen / oxyCODONE; Translations: [Percocet] Drug Allergy 3 [facility] (19 sources) DULoxetine Drug Allergy headaches [facility] [employer] Other (19 sources) FLUoxetine Drug Allergy doesn't work [employer] Other (13 sources) Acetaminophen; Translations: [acetaminophen] Drug Allergy [address] [facility] (18 sources) DULoxetine; Translations: [duloxetine] Drug Allergy 4 [facility] (18 sources) FLUoxetine; Translations: [fluoxetine] Drug Allergy 4 doesn't work [facility] (18 sources) oxyCODONE; Translations: [oxycodone] Drug Allergy [address] [facility] Medications Current Medications Medication Drug Class(es) Dates [...] And Nails (Biotin)) 10,000 mcg tablet,chewable Active 65683 MCG PO Daily December 22, 2023 12:00am [...] 12 tablet 0 06/09/2017 Active estrogens, conjugated (group home) 0.625 mg/ml vaginal cream (16 sources) Estrogen [...] Take 2 tablets by mouth daily. Lot [id number], Exp 02/14 28 tablet 0 03/30/2018 05/11/2018 [...] Take 1 tablet by mouth daily. Lot [id number], exp 12/15 14 tablet 03/03/2018 03/26/2018 Discontinued [...] mg docusate sodium 50 mg / sennosides, group home 8.6 mg oral tablet (7 sources) Start: [...] times daily. 05/11/2018 Discontinued polyethylene glycol 3350 00643 mg powder for oral solution (7 sources) [...] current use of drug therapy; Translations: [Other intermodal customer service (current) drug therapy] 11-19-2023 Episodic Other connective [...] 12-13-2014 Episodic Other aftercare (9 sources) Other usp (current) drug therapy; Translations: [OTH [facility] CURRENT DRUG THERAPY] Onset: 02-07-2022 Episodic Other [...] 04-07-2024 XR hip RT min 2V(w/wo pelvis)* [facility] [address] [place] [address] XRay Report Signed Patient: Antonino Torres MR#: [id number] : 1955 Acct:[id number] Age/Sex: 68 / F ADM Date: 04/07/24 Loc: [facility] Room: Type: [facility] Attending Dr: Finn Ortez II, MD [...] DO 04/07/241412 Signed By: 04/07/241413 Normal [facility] XR hip RT min 2V(w/wo pelvis )*on 02-24-2024 XR hip RT min 2V(w/wo pelvis)* [facility] [address] [place] [address] XRay Report Signed Patient: Antonino Torres MR#: [id number] : 1955 Acct:[id number] Age/Sex: 68 / F ADM Date: 02/24/24 Loc: [facility] Room: Type: [facility] Attending Dr: Finn Ortez II, MD [...] 1303 Signed By: 02/24/24 130 Normal [facility] Laboratory - Chemistry and C hemistry - challengeon 02-05-2024 Bilirubin Ql (U) Negative NEGATIVE [facility] Glucose (U) [Mass/Vol] Negative NEGATIVE [facility] Ketones Ql (U) Negative NEGATIVE [facility] pH (U) 6.0 [pH] 5.0-9.0 [facility] Specific gravity (U) [Rel density] <=1.005 Abnormal 1.005-1.02 5 [facility] Urobilinogen Qn (U) 0.2 {Sajan'U}/dL 0.2-1.0 [facility] Laboratory - Specimen inform ationon 02-05-2024 Appearance (U) CLEAR CLEAR [facility] Color (U) LT. YELLOW YELLOW [facility] Laboratory - Urinalysison Leukocyte esterase Test strip Ql (U) Negative NEGATIVE [facility] Mucus Ql (Urine sed) NONE SEEN NONE SEEN [facility] Nitrite Ql (U) Negative NEGATIVE [facility] Protein Ql (U) Negative NEG/TRACE [facility] No Panel Informationon 02-04 Miscellaneous Test Comment See comment [facility] Comment on above: Specimen Source: UCC - Urine,Clean Catch - Urine CC - 200.100 Urine Bacteria TRACE #/HPF Abnormal NONE SEEN [facility] Urine Culture Reflexed NO [facility] Urine Culture Result 1 \R\ Urine Culture, Routine [facility] Urine Occult Blood TRACE-I NEGATIVE [facility] Urine Other Casts NONE SEEN #/LPF NONE SEEN [facility] Urine Other Crystals None Seen #/HPF None Seen [facility] Urine RBC NONE SEEN #/HPF 0-2 [facility] Urine Squamous Epithelial Cells RARE #/LPF NONE/RARE [facility] Urine WBC NONE SEEN #/HPF NONE SEEN [facility] XR hip RT min 2V(w/wo pelvis )*on 01-21-2024 XR hip RT min 2V(w/wo pelvis)* [facility] [address] [place] [address] XRay Report Signed Patient: Antonino Torres MR#: [id number] : 1955 Acct:[id number] Age/Sex: 68 / F ADM Date: 01/21/24 Loc: [facility] Room: Type: [facility] Attending Dr: Finn Ortez II, MD [...] Trinidad Jr., D.O.01/21/2024 12:36 PM Dictation Location: [place] [address] Transcribed By: [facility] 01/21/24 1236 Dictated By: Isidro Trinidad Jr, DO 01/21/24 1234 Signed By: 01/21/24 1236 Normal [facility] ABO/Rh Retypeon 01-05-2024 ABO/RH Recheck Result Positive Normal [facility] Comment on above: Result Comment: PERF ORMED BY: [address] [place] [address] PATHOLOGIST INSURANCE LAW SPECIALIST KOMAL Babb 01-05-2024 L Specimen: [id number] Received: 01/06/24 Status: SOUVicki Req Num: [id number] Spec Type: Surgical Subm Dr: Finn Ortez MD Tissues: A Femoral Head - Other than Fracture (R HIP) Procedures: HE/2, Gross/Micro L3, Decalcification Age/ Patient Sex Location Account Attending Physician Antonino Torres 68/F [place] [id number] Finn Ortez MD SPEC NUM: [id number] RECD: 01/06/24 STATUS: MELISSA REQ NUM: [id number] JASKARAN: 01/05/[address]: Finn Ortez MD ENTERED: 01/06/[address] [facility] [address]: SPEC TYPE: Surgical DEPT: S ENTERED BY: [id number] RECV BY: [id number] ORDERED: HE/2, Gross/Micro L3, Decalcification ORDERED: HE/2, [...] greatest dimension. Moderate osteophytic lipping grossly identified. [employer] Center Recruiter sections are as follows: A1 eburnation, (submitted in decal before routine processing) A2 osteophytic lipping and soft tissue, (submitted in decal before routine processing) CPT Codes 50103 Specimen: [id number] Received: 01/06/24 Status: MELISSA Trace Num: [id number] Spec Type: Surgical Subm Dr: Finn Ortez MD Tissues: A Femoral Head - Other than Fracture (R HIP) Procedures: HE/2, Gross/Micro L3, Decalcification Patient: Antonino Torres [id number] (Continued) Signed (signature on file) Mary Mccarthy MD 01/15/241914 Normal [facility] XR hip RT 1Von 01-05-2024 XR hip RT 1V [place] [address] XRay Report Signed Patient: Antonino Torres MR#: [id number] : 1955 Acct:[id number] Age/Sex: 68 / F ADM Date: 01/05/24 Loc: [place] Room: Type: [facility] Attending Dr: Finn Ortez II, [...] Justen Jenkins M.D.01/05/2024 11:48 AM Dictation Location: [place] [address] Transcribed By: [facility] 01/05/24 1148 Dictated By: Justen Jenkins II, MD 01/05/24 1147 Signed By: 01/05/24 1148 Normal [facility] XR low pelvis w/RT x-table h ipon 01-05-2024 XR low pelvis w/RT x-table hip [facility] [place] [address] [place] [address] XRay Report Signed Patient: Antonino Torres MR#: [id number] : 1955 Acct:[id number] Age/Sex: 68 / F ADM Date: 01/05/24 Loc: [place] Room: Type: [facility] Attending Dr: Finn Ortez II, MD Copies [...] Gary Ley M.D.01/05/2024 4:38 PM Dictation Location: [place] [address] Transcribed By: [facility] 01/05/24 1638 Dictated By: Gary Ley DO 01/05/24 1637 Signed By: 01/05/24 1638 Normal [facility] Automated basophil %Ordered By: Finn Ortez on 12-22-2023 Basophils/100 WBC (Bld) 0.2 % Normal . [facility] Comment on above: Performed By: #### V [id number], HGB, ALB, CUMRSA, A1C WTH eA #### [place] [address] [place] #### NICOTINE #### [facility] , Automated basophil countOrde red By: Finn Ortez on 12-22-2023 Basophils (Bld) [#/Vol] 0.0 10*3/uL Normal 0.0-0.2 [facility] Comment on above: Result Comment: PERF ORMED BY: [place] [address] PATHOLOGIST INSURANCE LAW SPECIALIST KOMAL COFFMAN M.D. Performed By: #### V [id number], HGB, ALB, CUMRSA, A1C WTH eA #### [facility] [address] [place] [address] [place] #### NICOTINE #### [facility] , Automated blood monocyte cou ntOrdered By: Finn Ortez on 12-22-2023 Monocytes (Bld) [#/Vol] 0.5 10*3/uL Normal 0.0-0.8 [facility] Comment on above: Performed By: #### V [id number], HGB, ALB, CUMRSA, A1C WT eA #### [facility] [address] [place] [address] [place] #### NICOTINE #### [facility] , Automated eosinophil %Ordere d By: Finn Ortez on 12-22-2023 Eosinophils/100 WBC (Bld) 2.0 % Normal . [facility] Comment on above: Performed By: #### V [id number], HGB, ALB, CUMRSA, A1C WTH eA #### [facility] [address] [place] [address] [place] #### NICOTINE #### [facility] , Automated eosinophil countOr dered By: Finn Ortez on 12-22-2023 Eosinophils (Bld) [#/Vol] 0.1 10*3/uL Normal 0.0-0.45 [facility] Comment on above: Performed By: #### V [id number], HGB, ALB, CUMRSA, A1C WTH eA #### [facility] [address] [place] [address] [place] #### NICOTINE #### [facility] , Automated monocyte %Ordered By: Finn Ortez on 12-22-2023 Monocytes/100 WBC (Bld) 7.0 % Normal . [facility] Comment on above: Performed By: #### V [id number], HGB, ALB, CUMRSA, A1C WTH eA #### [place] [address] [place] #### NICOTINE #### [facility] , Automated neutrophil %Ordere d By: Finn Ortez on 12-22-2023 Neutrophils/100 WBC (Bld) 62.4 % Normal . [facility] Comment on above: Performed By: #### V [id number], HGB, ALB, CUMRSA, A1C WTH eA #### [place] [address] [place] #### NICOTINE #### [facility] , Complete Blood Count Auto Di ffon 12-22-2023 Mean Corpuscular HGB Conc 33.6 g/dL Normal 32.0-35.0 [facility] Comment on above: Performed By: #### V [id number], HGB, ALB, CUMRSA, A1C WTH eA #### [place] [address] [place] #### NICOTINE #### [facility] , NRBC% 0.1 /100{WBC} Normal 0-0.5 [facility] Comment on above: Performed By: #### V [id number], HGB, ALB, CUMRSA, A1C WTH eA #### [place] [address] [place] #### NICOTINE #### [facility] , Erythrocyte distribution wid th [Ratio] by Automated countOrdered By: Finn Ortez on 12-22-2023 Erythrocyte distribution width (RBC) [Ratio] 14.2 % Normal 11.9-15.3 [facility] Comment on above: Performed By: #### V [id number], HGB, ALB, CUMRSA, A1C WTH eA #### [place] [address] [place] #### NICOTINE #### [facility] , Erythrocytes [#/volume] in B lood by Automated countOrdered By: Finn Ortez on 12-22-2023 RBC (Bld) [#/Vol] 4.41 10*6/uL Normal 3.60-5.00 [facility] Comment on above: Performed By: #### V [id number], HGB, ALB, CUMRSA, A1C WTH eA #### [facility] [address] [place] [address] [place] #### NICOTINE #### [facility] , Fructosamineon 12-22-2023 Fructosamine 216 umol/L Normal 0-285 [facility] Comment on above: Result Comment: Publ ished reference interval for apparently healthy subjects between age 20 and 60 is 205 - 285 umol/L and in a poorly controlled diabetic population is 228 - 563 umol/L with a mean of 396 umol/L. Performed at: [facility] [place] [id number] Child Development Teacher: Chang Quinteros PhD, Phone: [phone] PERFORMED BY: [place] [address] PATHOLOGIST INSURANCE LAW SPECIALIST KOMAL COFFMAN M.D. Performed By: #### V [id number], HGB, ALB, CUMRSA, A1C WTH eA #### [address] #### NICOTINE #### [facility] , Fructosamine [Moles/volume] in Serum or PlasmaOrdered By: Finn Ortez on 12-22-2023 Fructosamine [Moles/Vol] 216 umol/L 0-285 [facility] Comment on above: Published reference interval for apparently healthysubjects between age 20 and 60 is 205 - 285 umol/L and in apoorly controlled diabetic population is 228 - 563 umol/Lwith a mean of 396 umol/L.Performed at: [facility] [address] [id number] Director: Chang Quinteros PhD, Phone: [phone] Hematocrit [Volume Fraction] of Blood by Automated countOrdered By: Finn Ortez on 12-22-2023 Hematocrit (Bld) [Volume fraction] 38.6 % Normal 34.0-46.4 [facility] Comment on above: Performed By: #### V [id number], HGB, ALB, CUMRSA, A1C WT eA #### [facility] [address] [place] [address] [place] #### NICOTINE #### [facility] , Hemoglobin [Mass/volume] in BloodOrdered By: Finn Ortez on 12-22-2023 Hemoglobin (Bld) [Mass/Vol] 13.0 g/dL Normal 11.8-15.4 [facility] Comment on above: Performed By: #### V [id number], HGB, ALB, CUMRSA, A1C WT eA #### [place] [address] [place] #### NICOTINE #### [facility] , Leukocytes [#/volume] correc main for nucleated erythrocytes in Blood by Automated counOrdered By: Finn Ortez on 12-22-2023 WBC corrected for nucl RBC Auto (Bld) [#/Vol] 6.8 10*3/uL 3.8-11.6 [facility] Leukocytes [#/volume] in Blo od by Automated countOrdered By: Finn Ortez on 12-22-2023 WBC (Bld) [#/Vol] 6.8 10*3/uL Normal 3.8-11.6 [facility] Comment on above: Performed By: #### V [id number], HGB, ALB, CUMRSA, A1C WT eA #### [facility] [address] [place] [address] [place] #### NICOTINE #### [facility] , Lymphocytes [#/volume] in Bl ood by Automated countOrdered By: Finn Ortez on 12-22-2023 Lymphocytes (Bld) [#/Vol] 1.9 10*3/uL Normal 1.00-4.8 [facility] Comment on above: Performed By: #### V [id number], HGB, ALB, CUMRSA, A1C WTH eA #### [facility] [address] [place] [address] [place] #### NICOTINE #### [facility] , Lymphocytes/100 leukocytes i n Blood by Automated countOrdered By: Finn Ortez on 12-22-2023 Lymphocytes/100 WBC (Bld) 28.4 % Normal . [facility] Comment on above: Performed By: #### V [id number], HGB, ALB, CUMRSA, A1C WTH eA #### [place] [address] [place] #### NICOTINE #### [facility] , MCH [Entitic mass] by Automa main countOrdered By: Finn Ortez on 12-22-2023 MCH (RBC) [Entitic mass] 29.4 pg Normal 24.7-34.3 [facility] Comment on above: Performed By: #### V [id number], HGB, ALB, CUMRSA, A1C WTH eA #### [place] [address] [place] #### NICOTINE #### [facility] , MCHC Auto (RBC) [Mass/Vol]Or dered By: Finn Ortez on 12-22-2023 MCHC (RBC) [Mass/Vol] 33.6 g/dL 32.0-35.0 [facility] MCV [Entitic volume] by Auto mated countOrdered By: Finn Ortez on 12-22-2023 MCV (RBC) [Entitic vol] 87.4 fL Normal 80-100 [facility] Comment on above: Performed By: #### V [id number], HGB, ALB, CUMRSA, A1C WTH eA #### [place] [address] [place] #### NICOTINE #### [facility] , Neutrophils [#/volume] in Bl ood by Automated countOrdered By: Finn Ortez on 12-22-2023 Neutrophils (Bld) [#/Vol] 4.3 10*3/uL Normal 1.8-7.7 [facility] Comment on above: Performed By: #### V [id number], HGB, ALB, CUMRSA, A1C WTH eA #### [facility] [address] [place] [address] [place] #### NICOTINE #### [facility] , Nucleated erythrocytes [Pres ence] in Blood by Automated countOrdered By: Finn Ortez on 12-22-2023 Nucleated RBC Auto Ql (Bld) 0.1 /100{WBC} 0-0.5 [facility] PST Type and Screenon 2023 ABO and Rh group Nom (Bld) Blood group O Rh(D) positive Normal [facility] Comment on above: Order Comment: Date of Surgery: [id number] Result Comment: PERF ORMED BY: [place] [address] PATHOLOGIST INSURANCE LAW SPECIALIST KOMAL COFFMAN M.D. Platelet mean volume [Entiti c volume] in Blood by Automated countOrdered By: Finn Ortez on 12-22-2023 Platelet mean volume (Bld) [Entitic vol] 7.4 fL Normal 6.3-10.7 [facility] Comment on above: Performed By: #### V [id number], HGB, ALB, CUMRSA, A1C WTH eA #### [facility] [address] [place] [address] [place] #### NICOTINE #### [facility] , Platelets [#/volume] in Bloo d by Automated countOrdered By: Finn Ortez on 12-22-2023 Platelets (Bld) [#/Vol] 306 10*3/uL Normal 150-450 [facility] Comment on above: Performed By: #### V [id number], HGB, ALB, CUMRSA, A1C WTH eA #### [place] [address] [place] #### NICOTINE #### [facility] , Basophils Auto (Bld) [#/Vol] on 12-19-2023 Basophils (Bld) [#/Vol] 0.1 10 3/uL 0.0-0.1 [facility] Basophils/100 WBC Auto (Bld) on 12-19-2023 Basophils/100 WBC (Bld) 0.4 % 0.2-2.0 [facility] Eosinophils/100 WBC Auto (Bl d)on 12-19-2023 Eosinophils/100 WBC (Bld) 1.2 % 0.9-7.0 [facility] Erythrocyte distribution wid th Auto (RBC) [Ratio]on 12-19-2023 Erythrocyte distribution width (RBC) [Ratio] 13.7 % 11.0-15.0 [facility] Estimated glomerular filtrat ion rate (GFR) non- Americanon 12-19-2023 GFR/1.73 sq M.predicted among non-blacks MDRD (S/P/Bld) [Vol rate/Area] mL/min/{1.73_m2} >=60 [facility] Globulin Calc (S) [Mass/Vol] on 12-19-2023 Globulin (S) [Mass/Vol] 2.9 g/dL [facility] Hematocrit Auto (Bld) [Volum e fraction]on 12-19-2023 Hematocrit (Bld) [Volume fraction] 40.6 % 36.0-48.0 [facility] Hemoglobin [Mass/volume] in Bloodon 12-19-2023 Hemoglobin (Bld) [Mass/Vol] 13.3 g/dL 12.0-16.0 [facility] INR in Platelet poor plasma by Coagulation assayon 12-19-2023 INR Coag (PPP) [Relative time] 0.95 {INR} [facility] Comment on above: DESIRED INR:2.0-3.0 CONDITIONS NOT LISTED BELOW2.5-3.5 FOR PROSTHETIC HEART VALVE REPLACEMENT2.5-3.5 RECURRENT THROMBOSIS Laboratory - Chemistry and C hemistry - challengeon 12-19-2023 Bilirubin Ql (U) Negative NEGATIVE [facility] Glucose (U) [Mass/Vol] Negative NEGATIVE [facility] Ketones Ql (U) 40 mg/dL Abnormal NEGATIVE [facility] pH (U) 5.5 [pH] 5.0-9.0 [facility] Specific gravity (U) [Rel density] >=1.030 Abnormal 1.005-1.02 5 [facility] Urobilinogen Qn (U) 0.2 {Sajan'U}/dL 0.2-1.0 [facility] Albumin [Mass/Vol] 4.0 g/dL 3.4-5.0 [facility] ALP [Catalytic activity/Vol] 90 U/L 46-116 [facility] ALT [Catalytic activity/Vol] 34 U/L 14-59 [facility] AST [Catalytic activity/Vol] 27 U/L 15-37 [facility] Bilirubin [Mass/Vol] 0.6 mg/dL 0.2-1.0 [facility] Calcium [Mass/Vol] 9.2 mg/dL 8.5-10.1 [facility] Chloride [Moles/Vol] 104 mmol/L 98-107 [facility] CO2 [Moles/Vol] 28.2 mmol/L 21.0-32.0 [facility] Creatinine [Mass/Vol] 0.79 mg/dL 0.55-1.02 [facility] GFR/1.73 sq M.predicted MDRD (S/P/Bld) [Vol rate/Area] mL/min/{1.73_m2} >=60 [facility] Glucose [Mass/Vol] 93 mg/dL 74-106 [facility] Potassium [Moles/Vol] 3.6 mmol/L 3.5-5.1 [facility] Protein [Mass/Vol] 6.9 g/dL 6.4-8.2 [facility] Sodium [Moles/Vol] 142 mmol/L 136-145 [facility] Urea nitrogen [Mass/Vol] 14.0 mg/dL 7.0-18.0 [facility] Urea nitrogen/Creatinine [Mass ratio] 17.7 mg/mg [facility] Laboratory - Hematology and Cell countson 12-19-2023 Immature granulocytes/100 WBC (Bld) 0.3 % 0.0-0.5 [facility] Laboratory - Specimen inform ationon 12-19-2023 Appearance (U) SL CLOUDY CLEAR [facility] Color (U) YELLOW YELLOW [facility] Laboratory - Urinalysison Leukocyte esterase Test strip Ql (U) Negative NEGATIVE [facility] Mucus Ql (Urine sed) TRACE Abnormal NONE SEEN [facility] Nitrite Ql (U) Negative NEGATIVE [facility] Protein Ql (U) TRACE mg/dL NEG/TRACE [facility] Leukocytes [#/volume] correc main for nucleated erythrocytes in Blood by Automated counon 12-19-2023 WBC corrected for nucl RBC Auto (Bld) [#/Vol] 13.9 10 3/uL High 4.0-11.0 [facility] Lymphocytes Auto (Bld) [#/Vo l]on 12-19-2023 Lymphocytes (Bld) [#/Vol] 2.3 10 3/uL 1.2-3.8 [facility] Lymphocytes/100 WBC Auto (Bl d)on 12-19-2023 Lymphocytes/100 WBC (Bld) 16.7 % Low 20.5-60.0 [facility] MCH Auto (RBC) [Entitic mass ]on 12-19-2023 MCH (RBC) [Entitic mass] 29.2 pg 26.7-34.0 [facility] MCHC Auto (RBC) [Mass/Vol]on 12-19-2023 MCHC (RBC) [Mass/Vol] 32.8 g/dL 29.9-35.2 [facility] MCV Auto (RBC) [Entitic vol] on 12-19-2023 MCV (RBC) [Entitic vol] 89.2 fL 81.0-99.0 [facility] Monocytes Auto (Bld) [#/Vol] on 12-19-2023 Monocytes (Bld) [#/Vol] 1.2 10 3/uL High 0.3-0.8 [facility] Monocytes/100 WBC Auto (Bld) on 12-19-2023 Monocytes/100 WBC (Bld) 8.8 % 1.7-12.0 [facility] Neutrophils Auto (Bld) [#/Vo l]on 12-19-2023 Neutrophils (Bld) [#/Vol] 10.1 10 3/uL High 1.4-6.5 [facility] Neutrophils/100 WBC Auto (Bl d)on 12-19-2023 Neutrophils/100 WBC (Bld) 72.6 % 43.0-75.0 [facility] No Panel Informationon 12-18 Urine Bacteria MODERATE #/HPF Abnormal NONE SEEN [facility] Urine Calcium Oxalate Crystals RARE [facility] Urine Culture Reflexed YES [facility] Urine Microscopic Review YES [facility] Urine Occult Blood LARGE Abnormal NEGATIVE [facility] Urine Other Casts SEEN #/LPF Abnormal NONE SEEN [facility] Urine Other Crystals Seen #/HPF Abnormal None Seen [facility] Urine RBC 75-100 #/HPF Abnormal 0-2 [facility] Urine Squamous Epithelial Cells FEW #/LPF Abnormal NONE/RARE [facility] Urine WBC 2-5 #/HPF Abnormal NONE SEEN [facility] Eosinophils # (Auto) 0.2 10 3/uL 0.0-0.7 [facility] Immature Granulocyte # (Auto) 0.04 10 3/uL High 0.00-0.03 [facility] Troponin I High Sensitivity 5.1 pg/mL 4.0-51.3 [facility] Comment on above: CUT-OFF POINTS HAVE BEEN [...] (Bld) [Entitic vol] 9.0 fL Low 9.5-13.5 [facility] Platelets Auto (Bld) [#/Vol] on 12-19-2023 Platelets (Bld) [#/Vol] 300 10 3/uL 150-450 [facility] Prothrombin time (PT)on 11-27 PT Coag (PPP) [Time] 10.1 s 9.0-11.6 [facility] RBC Auto (Bld) [#/Vol]on RBC (Bld) [#/Vol] 4.55 10 6/uL 4.20-5.40 [facility] Serum or plasma albumin/glob ulin mass ratioon 12-19-2023 Albumin/Globulin [Mass ratio] 1.4 {ratio} [facility] Serum or plasma anion gap de terminationon 12-19-2023 Anion gap [Moles/Vol] 13.4 mmol/L [facility] Yeast detection in urine sed iment by light microscopyon 12-19-2023 Yeast LM Ql (Urine sed) SEEN Abnormal NONE SEEN [facility] Basophils Auto (Bld) [#/Vol] on 12-06-2023 Basophils (Bld) [#/Vol] 0.1 10 3/uL 0.0-0.1 [facility] Basophils/100 WBC Auto (Bld) on 12-06-2023 Basophils/100 WBC (Bld) 1.0 % 0.2-2.0 [facility] Cholesterol in LDL Calc [Mas s/Vol]on 12-06-2023 Cholesterol in LDL [Mass/Vol] 105.0 mg/dL [facility] Comment on above: <100 mg/dl [id number] 0-129 mg/dl NEAR OR ABOVE [id number] mg/dl BORDERLINE [id number] mg/dl HIGH>190 mg/dl VERY HIGH Cholesterol in VLDL Calc [Ma ss/Vol]on 12-06-2023 Cholesterol in VLDL [Mass/Vol] 21.0 mg/dL [facility] Eosinophils/100 WBC Auto (Bl d)on 12-06-2023 Eosinophils/100 WBC (Bld) 3.7 % 0.9-7.0 [facility] Erythrocyte distribution wid th Auto (RBC) [Ratio]on 12-06-2023 Erythrocyte distribution width (RBC) [Ratio] 13.8 % 11.0-15.0 [facility] Estimated glomerular filtrat ion rate (GFR) non- Americanon 12-06-2023 GFR/1.73 sq M.predicted among non-blacks MDRD (S/P/Bld) [Vol rate/Area] mL/min/{1.73_m2} >=60 [facility] Globulin Calc (S) [Mass/Vol] on 12-06-2023 Globulin (S) [Mass/Vol] 3.0 g/dL [facility] Hematocrit Auto (Bld) [Volum e fraction]on 12-06-2023 Hematocrit (Bld) [Volume fraction] 41.8 % 36.0-48.0 [facility] Hemoglobin [Mass/volume] in Bloodon 12-06-2023 Hemoglobin (Bld) [Mass/Vol] 13.3 g/dL 12.0-16.0 [facility] Laboratory - Chemistry and C hemistry - challengeon 12-06-2023 Albumin [Mass/Vol] 3.8 g/dL 3.4-5.0 [facility] ALP [Catalytic activity/Vol] 110 U/L 46-116 [facility] ALT [Catalytic activity/Vol] 40 U/L 14-59 [facility] AST [Catalytic activity/Vol] 32 U/L 15-37 [facility] Bilirubin [Mass/Vol] 0.4 mg/dL 0.2-1.0 [facility] Calcium [Mass/Vol] 8.8 mg/dL 8.5-10.1 [facility] Chloride [Moles/Vol] 105 mmol/L 98-107 [facility] Cholesterol [Mass/Vol] 189 mg/dL <=200 [facility] Cholesterol in HDL [Mass/Vol] 63 mg/dL High 40-60 [facility] Comment on above: > or =60 mg/dl - LOW CARDIOVASCULAR RISK<40 mg/dl - HIGH CARDIOVASCULAR RISK CO2 [Moles/Vol] 32.2 mmol/L High 21.0-32.0 [facility] Creatinine [Mass/Vol] 0.66 mg/dL 0.55-1.02 [facility] GFR/1.73 sq M.predicted MDRD (S/P/Bld) [Vol rate/Area] mL/min/{1.73_m2} >=60 [facility] Glucose [Mass/Vol] 91 mg/dL 74-106 [facility] Potassium [Moles/Vol] 4.1 mmol/L 3.5-5.1 [facility] Protein [Mass/Vol] 6.8 g/dL 6.4-8.2 [facility] Sodium [Moles/Vol] 143 mmol/L 136-145 [facility] Triglyceride [Mass/Vol] 105 mg/dL <=150 [facility] TSH Qn 2.954 m[IU]/L 0.358-3.74 0 [facility] Urea nitrogen [Mass/Vol] 11.0 mg/dL 7.0-18.0 [facility] Urea nitrogen/Creatinine [Mass ratio] 16.7 mg/mg [facility] Laboratory - Hematology and Cell countson 12-06-2023 Immature granulocytes/100 WBC (Bld) 0.3 % 0.0-0.5 [facility] Leukocytes [#/volume] correc main for nucleated erythrocytes in Blood by Automated counon 12-06-2023 WBC corrected for nucl RBC Auto (Bld) [#/Vol] 6.8 10 3/uL 4.0-11.0 [facility] Lymphocytes Auto (Bld) [#/Vo l]on 12-06-2023 Lymphocytes (Bld) [#/Vol] 1.8 10 3/uL 1.2-3.8 [facility] Lymphocytes/100 WBC Auto (Bl d)on 12-06-2023 Lymphocytes/100 WBC (Bld) 26.8 % 20.5-60.0 [facility] MCH Auto (RBC) [Entitic mass ]on 12-06-2023 MCH (RBC) [Entitic mass] 29.2 pg 26.7-34.0 [facility] MCHC Auto (RBC) [Mass/Vol]on 12-06-2023 MCHC (RBC) [Mass/Vol] 31.8 g/dL 29.9-35.2 [facility] MCV Auto (RBC) [Entitic vol] on 12-06-2023 MCV (RBC) [Entitic vol] 91.7 fL 81.0-99.0 [facility] Monocytes Auto (Bld) [#/Vol] on 12-06-2023 Monocytes (Bld) [#/Vol] 0.5 10 3/uL 0.3-0.8 [facility] Monocytes/100 WBC Auto (Bld) on 12-06-2023 Monocytes/100 WBC (Bld) 7.9 % 1.7-12.0 [facility] Neutrophils Auto (Bld) [#/Vo l]on 12-06-2023 Neutrophils (Bld) [#/Vol] 4.1 10 3/uL 1.4-6.5 [facility] Neutrophils/100 WBC Auto (Bl d)on 12-06-2023 Neutrophils/100 WBC (Bld) 60.3 % 43.0-75.0 [facility] No Panel Informationon 12-05 Eosinophils # (Auto) 0.3 10 3/uL 0.0-0.7 [facility] Immature Granulocyte # (Auto) 0.02 10 3/uL 0.00-0.03 [facility] Platelet mean volume Auto (B ld) [Entitic vol]on 12-06-2023 Platelet mean volume (Bld) [Entitic vol] 8.7 fL Low 9.5-13.5 [facility] Platelets Auto (Bld) [#/Vol] on 12-06-2023 Platelets (Bld) [#/Vol] 291 10 3/uL 150-450 [facility] RBC Auto (Bld) [#/Vol]on RBC (Bld) [#/Vol] 4.56 10 6/uL 4.20-5.40 [facility] Serum or plasma albumin/glob ulin mass ratioon 12-06-2023 Albumin/Globulin [Mass ratio] 1.3 {ratio} [facility] Serum or plasma anion gap de terminationon 12-06-2023 Anion gap [Moles/Vol] 9.9 mmol/L [facility] Serum or plasma total choles terol/high density lipoprotein (HDL) cholesterol mass amador 12-06-2023 Cholesterol.total/C holesterol in HDL [Mass ratio] 3.0 {ratio} [facility] Comment on above: 3.3 - 4.4 LOW RISK4. 4 - 7.1 AVERAGE RISK7.1 - 11.0 MODERATE RISK>11.0 HIGH RISK A1C with Estimated Average G luon 11-19-2023 Glucose [Mass/Vol] 123 mg/dL Normal [facility] Comment on above: Result Comment: PERF ORMED BY: [place] [address] PATHOLOGIST INSURANCE LAW SPECIALIST KOMAL COFFMAN M.D. Performed By: #### V [id number], HGB, ALB, CUMRSA, A1C [facility] eA #### [address] #### NICOTINE #### [facility] , Albumin Levelon 11-19-2023 Albumin [Mass/Vol] 4.6 g/dL Normal 3.5-5.7 [facility] Comment on above: Performed By: #### V [id number], HGB, ALB, CUMRSA, A1C WT eA #### [address] #### NICOTINE #### [facility] , Albumin [Mass/volume] in Ser um or Plasma by Bromocresol green (BCG) dye binding methoOrdered By: Finn Ortez on 11-19-2023 Albumin BCG dye [Mass/Vol] 4.6 g/dL 3.5-5.7 [facility] Cotinine [Mass/volume] in Se rum or PlasmaOrdered By: Finn Ortez on 11-19-2023 Cotinine [Mass/Vol] <1.0 ng/mL . [facility] Comment on above: This test was develo ped and its performance characteristicsdetermined by [employer]. It has not been cleared orapproved by the Food and Drug Administration.Cotinine levels greater than 20.0 are consistent with theuse of tobacco or tobacco cessation products.Performed at: [address] [id number] Director: Vinh Almeida MD, Phone: [phone] Glucose mean value [Mass/vol ume] in Blood Estimated from glycated hemoglobinOrdered By: Finn Ortez on 11-19-2023 Average glucose Estimated from glycated hemoglobin (Bld) [Mass/Vol] 123 mg/dL [facility] Hemoglobin A1c percentageOrd ered By: Finn Ortez on 11-19-2023 HbA1c (Bld) [Mass fraction] 5.9 % High 4.3-5.6 [facility] Comment on above: Increased risk for d iabetes: 5.7 - 6.4diabetes: >6.4glycemic control for adults with diabetes: <7.0 Result Comment: Incr eased risk for diabetes: 5.7 - 6.4 diabetes: >6.4 glycemic control for adults with diabetes: <7.0 Performed By: #### V [id number], HGB, ALB, CUMRSA, A1C WTH eA #### [place] [address] [place] #### NICOTINE #### [facility] , Hemoglobin [Mass/volume] in BloodOrdered By: Finn Ortez on 11-19-2023 Hemoglobin (Bld) [Mass/Vol] 13.6 g/dL Normal 11.8-15.4 [facility] Comment on above: Result Comment: PERF ORMED BY: [place] [address] PATHOLOGIST INSURANCE LAW SPECIALIST KOMAL COFFMAN M.D. Performed By: #### V [id number], HGB, ALB, CUMRSA, A1C [facility] eA #### [address] #### NICOTINE #### [facility] , MRSA Cultureon 11-19-2023 MRSA Culture MRSA Culture Results No MRSA Isolated 2 Days PERFORMED BY: [place] [address] PATHOLOGIST INSURANCE LAW SPECIALIST OKMAL COFFMAN M.D. Normal [facility] Comment on above: Performed By: #### V [id number], HGB, ALB, CUMRSA, A1C WTH eA #### [place] [address] [place] #### NICOTINE #### [facility] , Nicotine [Mass/volume] in Se rum or PlasmaOrdered By: Finn Ortez on 11-19-2023 Nicotine [Mass/Vol] <1.0 ng/mL . [facility] Comment on above: This test was develo ped and its performance characteristicsdetermined by [facility]. It has not been cleared orapproved by the Food and Drug Administration.Nicotine levels greater than 2.0 are consistent with theuse of tobacco or tobacco cessation products. Nicotine/Cotinine Bloodon Cotinine, Blood <1.0 Normal . [facility] Comment on above: Result Comment: This test was developed and its performance characteristics determined by [facility]. It has not been cleared or approved by the Food and Drug Administration. Cotinine levels greater than 20.0 are consistent with the use of tobacco or tobacco cessation products. Performed at: [facility] [id number] Child Development Teacher: Vinh Almeida MD, Phone: [phone] PERFORMED BY: [place] [address] PATHOLOGIST INSURANCE LAW SPECIALIST KOMAL COFFMAN M.D. Performed By: #### V [id number], HGB, ALB, CUMRSA, A1C WT eA #### [address] #### NICOTINE #### [facility] , Nicotine, Blood <1.0 Normal . [facility] Comment on above: Result Comment: This test was developed and its performance characteristics determined by [facility]. It has not been cleared or approved by the Food and Drug Administration. Nicotine levels greater than 2.0 are consistent with the use of tobacco or tobacco cessation products. Performed By: #### V [id number], HGB, ALB, CUMRSA, A1C WT eA #### [place] [address] [place] #### NICOTINE #### [facility] , Vitamin D 25 Hydroxy Totalon 11-19-2023 Vitamin D 25 Hydroxy Total 51.6 ng/mL Normal 30-100 [facility] Comment on above: Result Comment: EDIE MIN D STATUS 25(OH)VITAMIN D RANGE (ng/mL) Deficient <20 Insufficient 20 to <30 Sufficient 30 to 100 Reference: Radha Vargas, Gisela RAMAN, et al. Evaluation,treatment, and prevention of vitamin D deficiency; an Endocrine Society clinical practice guideline. JCEM. 2010; 96(7):1911-30. PERFORMED BY: [place] [address] PATHOLOGIST INSURANCE LAW SPECIALIST KOMAL COFFMAN M.D. Performed By: #### V [id number], HGB, ALB, CUMRSA, A1C WTH eA #### [facility] [address] [place] [address] #### NICOTINE #### [facility] , Vitamin D+Metabolites [Mass/ volume] in Serum or PlasmaOrdered By: Finn Ortez on 11-19-2023 Vitamin D+Metabolites [Mass/Vol] 51.6 ng/mL 30-100 [facility] Comment on above: VITAMIN D STATUS [...] isol Org specific cx Ql (Unsp spec) [facility] Bilirubin Test strip Ql (U)O rdered By: Karen Cardoso on 09-15-2023 Bilirubin Ql (U) Negative Negative [facility] Color of Urine by AutoOrdere d By: Karen Cardoso on 09-15-2023 Color (U) Yellow Normal Yellow [facility] Comment on above: Order Comment: Name Collection Type:: Collection Method Unknown Performed By: #### U A, CUU #### [facility] [address] Ketones Auto test strip (U) [Mass/Vol]Ordered By: Karen Cardoso on 09-15-2023 Ketones (U) [Mass/Vol] Trace High Negative [facility] Nitrite Test strip Ql (U)Ord ered By: Karen Cardoso on 09-15-2023 Nitrite Ql (U) Negative Negative [facility] Protein Auto test strip (U) [Mass/Vol]Ordered By: Karen Cardoso on 09-15-2023 Protein (U) [Mass/Vol] Negative Negative [facility] Specific gravity Auto test s trip (U) [Rel density]Ordered By: Karen Cardoso on 09-15-2023 Specific gravity (U) [Rel density] 1.007 1.001-1.03 0 [facility] Urinalysison 09-15-2023 Appearance (U) Clear Normal Clear [facility] Comment on above: Order Comment: Name Collection Type:: Collection Method Unknown Performed By: #### U A, CUU #### [facility] [address] [place] [address] [place] Bilirubin,Urine Negative Normal Negative [facility] Comment on above: Order Comment: Name Collection Type:: Collection Method Unknown Performed By: #### U A, CUU #### [facility] [address] [place] [id number] [place] Glucose Ql (U) Normal Normal Normal [facility] Comment on above: Order Comment: Name Collection Type:: Collection Method Unknown Performed By: #### U A, CUU #### [facility] [address] [place] [address] [place] Ketones Ql (U) Trace High Negative [facility] Comment on above: Order Comment: Name Collection Type:: Collection Method Unknown Performed By: #### U A, CUU #### [facility] [address] [place] [address] [place] Leukocyte esterase Test strip Ql (U) Negative Normal Negative [facility] Comment on above: Order Comment: Name Collection Type:: Collection Method Unknown Performed By: #### U A, CUU #### [facility] [address] [place] [address] [place] Nitrite,Urine Negative Normal Negative [facility] Comment on above: Order Comment: Name Collection Type:: Collection Method Unknown Performed By: #### U A, CUU #### [place] [address] [place] Occult Blood,Urine 2+ High Negative [facility] Comment on above: Order Comment: Name Collection Type:: Collection Method Unknown Result Comment: PERF ORMED BY: [place] [address] PATHOLOGIST INSURANCE LAW SPECIALIST KOMAL COFFMAN M.D. Performed By: #### U A, CUU #### [place] [address] [place] Protein,Urine Negative Normal Negative [facility] Comment on above: Order Comment: Name Collection Type:: Collection Method Unknown Performed By: #### U A, CUU #### [address] Specificy [place],Urine 1.007 Normal 1.001-1.03 0 [facility] Comment on above: Order Comment: Name Collection Type:: Collection Method Unknown Performed By: #### U A, CUU #### [place] [address] [place] Urobilinogen,Urine Normal Normal Normal [facility] Comment on above: Order Comment: Name Collection Type:: Collection Method Unknown Performed By: #### U A, CUU #### [place] [address] [place] Urine Cultureon 09-15-2023 Bacteria identified Cx Nom (U) 50,000 colonies/ml mixed bacterial skin contaminants 2 Days PERFORMED BY: [place] [address] PATHOLOGIST INSURANCE LAW SPECIALIST KOMAL COFFMAN M.D. Normal [facility] Comment on above: Performed By: #### U A, CUU #### [place] [address] [place] Urine clarity by refractomet ry automatedOrdered By: Karen Cardoso on 09-15-2023 Clarity Refractometry automated (U) Clear Clear [facility] Urine culture routineOrdered By: Karen Cardoso on 05-20-2024 Bacteria identified Cx Nom (U) 2 Days [facility] Urine glucose measurement by automated test strip (mass/volume)Ordered By: Karen Cardoso on 09-15-2023 Glucose Auto test strip (U) [Mass/Vol] Normal mg/dL Normal [facility] Urine hemoglobin detection b y automated test stripOrdered By: Karen Cardoso on 09-15-2023 Hemoglobin Auto test strip Ql (U) 2+ High Negative [facility] Urine leukocyte esterase det ection by automated test stripOrdered By: Karen Cardoso on 09-15-2023 Leukocyte esterase Auto test strip Ql (U) Negative Negative [facility] Urine pH measurement by auto mated test stripOrdered By: Karen Cardoso on 09-15-2023 pH (U) 5.5 [pH] Normal 5.0-9.0 [facility] Comment on above: Order Comment: Name Collection Type:: Collection Method Unknown Performed By: #### U A, CUU #### [facility] [address] [place] [address] Urobilinogen Auto test strip (U) [Mass/Vol]Ordered By: Karen Cardoso on 09-15-2023 Urobilinogen (U) [Mass/Vol] Normal mg/dL Normal [facility] BI MAMMOGRAM SCREENING TOMOS YBRISSAIS BILATERALon 07-24-2023 [...] IS VERY IMPORTANT TO YOUR HEALTH. THE [place] [employer] GUIDELINES RECOMMEND THAT WOMEN 40 [...] Right Hip bone density obtained with a [employer] whole body system: Region BMD Young-Adult Age-Matched [...] Left Forearm bone density obtained with a [employer] whole body system: Region BMD Young-Adult Age-Matched [...] AP Spine bone density obtained with a [employer] whole body system: Region BMD Young-Adult Age-Matched [...] Basophils (Bld) [#/Vol] 0.0 10 3/uL 0.0-0.1 [facility] Basophils/100 WBC Auto (Bld) on 06-23-2023 Basophils/100 WBC (Bld) 0.4 % 0.2-2.0 [facility] Cholesterol in LDL Calc [Mas s/Vol]on 06-23-2023 Cholesterol in LDL [Mass/Vol] 104.0 mg/dL [facility] Comment on above: <100 mg/dl [id number] 0-129 mg/dl NEAR OR ABOVE [id number] mg/dl BORDERLINE [id number] mg/dl HIGH>190 mg/dl VERY HIGH Cholesterol in VLDL Calc [Ma ss/Vol]on 06-23-2023 Cholesterol in VLDL [Mass/Vol] 19.8 mg/dL [facility] Eosinophils/100 WBC Auto (Bl d)on 06-23-2023 Eosinophils/100 WBC (Bld) 1.8 % 0.9-7.0 [facility] Erythrocyte distribution wid th Auto (RBC) [Ratio]on 06-23-2023 Erythrocyte distribution width (RBC) [Ratio] 14.1 % 11.0-15.0 [facility] Estimated glomerular filtrat ion rate (GFR) non- Americanon 06-23-2023 GFR/1.73 sq M.predicted among non-blacks MDRD (S/P/Bld) [Vol rate/Area] mL/min/{1.73_m2} >=60 [facility] Globulin Calc (S) [Mass/Vol] on 06-23-2023 Globulin (S) [Mass/Vol] 3.6 g/dL [facility] Glucose mean value [Mass/vol ume] in Blood Estimated from glycated hemoglobinon 06-23-2023 Average glucose Estimated from glycated hemoglobin (Bld) [Mass/Vol] 114 mg/dL [facility] Hematocrit Auto (Bld) [Volum e fraction]on 06-23-2023 Hematocrit (Bld) [Volume fraction] 44.3 % 36.0-48.0 [facility] Hemoglobin [Mass/volume] in Bloodon 06-23-2023 Hemoglobin (Bld) [Mass/Vol] 14.0 g/dL 12.0-16.0 [facility] Laboratory - Chemistry and C hemistry - challengeon 06-23-2023 Albumin [Mass/Vol] 3.7 g/dL 3.4-5.0 [facility] ALP [Catalytic activity/Vol] 88 U/L 46-116 [facility] ALT [Catalytic activity/Vol] 29 U/L 14-59 [facility] AST [Catalytic activity/Vol] 18 U/L 15-37 [facility] Bilirubin [Mass/Vol] 0.6 mg/dL 0.2-1.0 [facility] Calcium [Mass/Vol] 9.1 mg/dL 8.5-10.1 [facility] Chloride [Moles/Vol] 104 mmol/L 98-107 [facility] Cholesterol [Mass/Vol] 196 mg/dL <=200 [facility] Cholesterol in HDL [Mass/Vol] 73 mg/dL 40-60 [facility] Comment on above: > or =60 mg/dl - LOW CARDIOVASCULAR RISK<40 mg/dl - HIGH CARDIOVASCULAR RISK CO2 [Moles/Vol] 30.4 mmol/L 21.0-32.0 [facility] Creatinine [Mass/Vol] 0.67 mg/dL 0.55-1.02 [facility] GFR/1.73 sq M.predicted MDRD (S/P/Bld) [Vol rate/Area] mL/min/{1.73_m2} >=60 [facility] Glucose [Mass/Vol] 97 mg/dL 74-106 [facility] Potassium [Moles/Vol] 3.8 mmol/L 3.5-5.1 [facility] Protein [Mass/Vol] 7.3 g/dL 6.4-8.2 [facility] Sodium [Moles/Vol] 145 mmol/L 136-145 [facility] Triglyceride [Mass/Vol] 99 mg/dL <=150 [facility] Urea nitrogen [Mass/Vol] 13.0 mg/dL 7.0-18.0 [facility] Urea nitrogen/Creatinine [Mass ratio] 19.4 mg/mg [facility] Laboratory - Hematology and Cell countson 06-23-2023 HbA1c (Bld) [Mass fraction] 5.6 % 4.5-6.2 [facility] Comment on above: ADA RECOMMENDED LIMI T 4.0 - 6.0ADA THERAPEUTIC TARGET < 7.0ACTION SUGGESTED> 7.0 Immature granulocytes/100 WBC (Bld) 0.8 % 0.0-0.5 [facility] Leukocytes [#/volume] correc main for nucleated erythrocytes in Blood by Automated counon 06-23-2023 WBC corrected for nucl RBC Auto (Bld) [#/Vol] 9.6 10 3/uL 4.0-11.0 [facility] Lymphocytes Auto (Bld) [#/Vo l]on 06-23-2023 Lymphocytes (Bld) [#/Vol] 1.8 10 3/uL 1.2-3.8 [facility] Lymphocytes/100 WBC Auto (Bl d)on 06-23-2023 Lymphocytes/100 WBC (Bld) 18.7 % 20.5-60.0 [facility] MCH Auto (RBC) [Entitic mass ]on 06-23-2023 MCH (RBC) [Entitic mass] 28.4 pg 26.7-34.0 [facility] MCHC Auto (RBC) [Mass/Vol]on 06-23-2023 MCHC (RBC) [Mass/Vol] 31.6 g/dL 29.9-35.2 [facility] MCV Auto (RBC) [Entitic vol] on 06-23-2023 MCV (RBC) [Entitic vol] 89.9 fL 81.0-99.0 [facility] Monocytes Auto (Bld) [#/Vol] on 06-23-2023 Monocytes (Bld) [#/Vol] 0.8 10 3/uL 0.3-0.8 [facility] Monocytes/100 WBC Auto (Bld) on 06-23-2023 Monocytes/100 WBC (Bld) 7.9 % 1.7-12.0 [facility] Neutrophils Auto (Bld) [#/Vo l]on 06-23-2023 Neutrophils (Bld) [#/Vol] 6.8 10 3/uL 1.4-6.5 [facility] Neutrophils/100 WBC Auto (Bl d)on 06-23-2023 Neutrophils/100 WBC (Bld) 70.4 % 43.0-75.0 [facility] No Panel Informationon 06-23 Eosinophils # (Auto) 0.2 10 3/uL 0.0-0.7 [facility] Immature Granulocyte # (Auto) 0.08 10 3/uL 0.00-0.03 [facility] Platelet mean volume Auto (B ld) [Entitic vol]on 06-23-2023 Platelet mean volume (Bld) [Entitic vol] 8.6 fL 9.5-13.5 [facility] Platelets Auto (Bld) [#/Vol] on 06-23-2023 Platelets (Bld) [#/Vol] 362 10 3/uL 150-450 [facility] RBC Auto (Bld) [#/Vol]on RBC (Bld) [#/Vol] 4.93 10 6/uL 4.20-5.40 [facility] Serum or plasma albumin/glob ulin mass ratioon 06-23-2023 Albumin/Globulin [Mass ratio] 1.0 {ratio} [facility] Serum or plasma anion gap de terminationon 06-23-2023 Anion gap [Moles/Vol] 14.4 mmol/L [facility] Serum or plasma total choles terol/high density lipoprotein (HDL) cholesterol mass amador 06-23-2023 Cholesterol.total/C holesterol in HDL [Mass ratio] 2.7 {ratio} [facility] Comment on above: 3.3 - 4.4 LOW RISK4. 4 - 7.1 AVERAGE RISK7.1 - 11.0 MODERATE RISK>11.0 HIGH RISK XR hip RT min 2V(w/wo pelvis )*on 06-13-2023 XR hip RT min 2V(w/wo pelvis)* [facility] [place] [address] [place] [address] XRay Report Signed Patient: Antonino Torres MR#: [id number] : 1955 Acct:[id number] Age/Sex: 67 / F ADM Date: 06/13/23 Loc: [facility] Room: Type: [facility] Attending Dr: Finn Ortez II, MD [...] Silvina Rolon M.D.06/13/2023 12:57 PM Dictation Location: [place] [address] Transcribed By: [facility] 06/13/23 1257 Dictated By: Silvina Rolon MD 06/13/23 1255 Signed By: 06/13/23 1257 [facility] CT CSPINE WO CONon CT CSPINE WO [...] DONYA BIGGS Date: 2022-08-27 17:05 Normal [facility] CT HEAD WO CONon 08-27-2022 CT HEAD [...] ALMA FRIEDMAN Date: 2022-08-27 17:02 Normal [facility] XR HIP LT 2 3V W PELVISon [...] KAREN CANO Date: 2022-08-27 17:40 Normal [facility] XR hip RT min 2V(w/wo pelvis )*on 07-12-2022 XR hip RT min 2V(w/wo pelvis)* [facility] [employer] Other XR hip RT min 2V(w/wo pelvis)* [facility] [employer] Other XR hip RT min 2V(w/wo pelvis)* [address] [place] [address] [employer] Other XR hip RT min 2V(w/wo pelvis)* [place] [address] [employer] Other XR hip RT min 2V(w/wo pelvis)* XRay Report [employer] Other XR hip RT min 2V(w/wo pelvis)* Signed [employer] Other XR hip RT min 2V(w/wo pelvis)* Patient: Antonino Torres MR#: [id number] [employer] Other XR hip RT min 2V(w/wo pelvis)* [address] [employer] Other XR hip RT min 2V(w/wo pelvis)* : 1955 Acct:[id number] [employer] Other XR hip RT min 2V(w/wo pelvis)* Age/Sex: 66 / F ADM Date: 07/12/22 [employer] Other XR hip RT min 2V(w/wo pelvis)* Loc: [facility] Room: Type: [facility] [employer] Other XR hip RT min 2V(w/wo pelvis)* Attending Dr: Finn Ortez II, MD [employer] Other XR hip RT min 2V(w/wo pelvis)* Copies to: Finn Ortez MD [employer] Other XR hip RT min 2V(w/wo pelvis)* Ordering Provider: Finn Ortez MD [employer] Other XR hip RT min 2V(w/wo pelvis)* Date of Service: 07/12/22 [employer] Other XR hip RT min 2V(w/wo pelvis)* XR/XR hip RT min 2V(w/wo pelvis)*: Right hip pain [employer] Other XR hip RT min 2V(w/wo pelvis)* XR hip RT min 2V(w/wo pelvis)* 07/12/2022 10:08 AM [employer] Other XR hip RT min 2V(w/wo pelvis)* SIGNS AND SYMPTOMS: Right hip pain, right inguinal pain [employer] Other XR hip RT min 2V(w/wo pelvis)* PROTOCOL: Frontal radiograph the pelvis with crosstable lateral view of the right hip [employer] Other XR hip RT min 2V(w/wo pelvis)* COMPARISON: None [employer] Other XR hip RT min 2V(w/wo pelvis)* FINDINGS: [employer] Other XR hip RT min 2V(w/wo pelvis)* 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 There is no hardware complication or malalignment. [employer] Other XR hip RT min 2V(w/wo pelvis)* The bony ring of the pelvis is grossly intact. Degenerative changes are noted in the lumbar spine [employer] Other XR hip RT min 2V(w/wo pelvis)* and sacroiliac joints. There is enthesophyte formation at the greater trochanters and iliac wings. [employer] Other XR hip RT min 2V(w/wo pelvis)* There is mild narrowing of the right hip joint space. [employer] Other XR hip RT min 2V(w/wo pelvis)* XR/XR hip RT min 2V(w/wo pelvis)* [employer] Other XR hip RT min 2V(w/wo pelvis)* IMPRESSION: [employer] Other XR hip RT min 2V(w/wo pelvis)* No fracture or dislocation. Nor [facility] Other XR hip RT min 2V(w/wo pelvis)* Multifocal degenerative change is noted, as above. [employer] Other XR hip RT min 2V(w/wo pelvis)* Impression dictated by: Justen Jenkins M.D.07/12/2022 1:35 PM [employer] Other XR hip RT min 2V(w/wo pelvis)* Dictation Location: [place] [address] [employer] Other XR hip RT min 2V(w/wo pelvis)* Transcribed By: SAGAR 07/12/22 [facility] [employer] Other XR hip RT min 2V(w/wo pelvis)* Dictated By: Justen Jenkins II, MD 07/12/22 [facility] [employer] Other XR hip RT min 2V(w/wo pelvis)* Signed By: [employer] Other XR hip RT min 2V(w/wo pelvis)* 07/12/22 [facility] [employer] Other CBC AUTO DIFFon 03-12-2022 BASO # 0.1 103/ul Normal 0.0-0.1 [facility] Comment on above: Performed By: #### D ATCBC #### [facility] [address] [place] [address] Dr. David Phillips Basophils/100 WBC (Bld) 1.0 % Normal 0.2-2.0 [facility] Comment on above: Performed By: #### D ATCBC #### [facility] [address] [place] [address] Dr. David Phillips EO # 0.2 103/ul Normal 0.0-0.7 [facility] Comment on above: Performed By: #### D ATCBC #### [facility] [address] [place] [address] Dr. David Phillips Eosinophils/100 WBC (Bld) 3.7 % Normal 0.9-7.0 [facility] Comment on above: Performed By: #### D ATCBC #### [facility] [address] [place] [address] Dr. David Phillips Erythrocyte distribution width (RBC) [Ratio] 13.1 % Normal 11.0-15.0 [facility] Comment on above: Performed By: #### D ATCBC #### [facility] [address] [place] [address] Dr. David Phillips Hematocrit (Bld) [Volume fraction] 41.6 % Normal 36.0-48.0 [facility] Comment on above: Performed By: #### D ATCBC #### [facility] [address] [place] [address] Dr. David Phillips Hemoglobin (Bld) [Mass/Vol] 13.6 g/dL Normal 12.0-16.0 [facility] Comment on above: Performed By: #### D ATCBC #### [facility] [address] [place] [address] Dr. David Phillips IG # 0.01 10e3/ul Normal 0.00-0.03 [facility] Comment on above: Performed By: #### D ATCBC #### [facility] [address] [place] [address] Dr. David Phillips IG % 0.2 % Normal 0.0-0.5 [facility] Comment on above: Performed By: #### D ATCBC #### [facility] [address] [place] [address] Dr. David Phillips LYMPH # 1.7 103/ul Normal 1.2-3.8 [facility] Comment on above: Performed By: #### D ATCBC #### [facility] [address] [place] [address] Dr. David Phillips Lymphocytes/100 WBC (Bld) 29.0 % Normal 20.5-60.0 [facility] Comment on above: Performed By: #### D ATCBC #### [facility] [address] [place] [address] Dr. David Phillips MCH (RBC) [Entitic mass] 28.9 pg Normal 26.7-34.0 [facility] Comment on above: Performed By: #### D ATCBC #### [facility] [address] [place] [address] Dr. David Phillips MCHC (RBC) [Mass/Vol] 32.7 g/dL Normal 29.9-35.2 [facility] Comment on above: Performed By: #### D ATCBC #### [facility] [address] [place] [address] Dr. David Phillips MCV (RBC) [Entitic vol] 88.3 fL Normal 81.0-99.0 [facility] Comment on above: Performed By: #### D ATCBC #### [facility] [address] [place] [address] Dr. David Phillips MONO # 0.5 103/ul Normal 0.3-0.8 [facility] Comment on above: Performed By: #### D ATCBC #### [facility] [address] [place] [address] Dr. David Phillips Monocytes/100 WBC (Bld) 7.7 % Normal 1.7-12.0 [facility] Comment on above: Performed By: #### D ATCBC #### [facility] [address] [place] [address] Dr. David Phillips NEUT # 3.4 103/ul Normal 1.4-6.5 [facility] Comment on above: Performed By: #### D ATCBC #### [facility] [address] [place] [address] [address] David Phillips Neutrophils/100 WBC (Bld) 58.4 % Normal 43.0-75.0 [facility] Comment on above: Performed By: #### D ATCBC #### [facility] [address] [place] [address] [address] David Phillips Platelet mean volume (Bld) [Entitic vol] 9.0 fL Critically low 9.5-13.5 [facility] Comment on above: Performed By: #### D ATCBC #### [facility] [address] [place] [address] Dr. David Phillips PLT 273 103/ul Normal 150-450 [facility] Comment on above: Performed By: #### D ATCBC #### [facility] [address] [place] [address] Dr. David Phillips RBC 4.71 106/ul Normal 4.20-5.40 [facility] Comment on above: Performed By: #### D ATCBC #### [facility] [address] [place] [address] Dr. David Phillips WBC 5.9 103/ul Normal 4.0-11.0 [facility] Comment on above: Performed By: #### D ATCBC #### [facility] [address] [place] [address] Dr. David Phillips BRIANNA- BMP WITH LIPIDon 2021 Anion gap [Moles/Vol] 6.8 mmol/L Normal [facility] Comment on above: Performed By: #### D ATCBC #### [facility] [address] [place] [address] Dr. David Phillips Calcium [Mass/Vol] 8.6 mg/dL Normal 8.5-10.1 [facility] Comment on above: Performed By: #### D ATCBC #### [facility] [address] [place] [address] Dr. David Phillips Chloride [Moles/Vol] 105 mmol/L Normal 98-107 [facility] Comment on above: Performed By: #### D ATCBC #### [facility] [address] [place] [address] [address] David Phillips Cholesterol [Mass/Vol] 175 mg/dL Normal <=200 [facility] Comment on above: Performed By: #### D ATCBC #### [facility] [address] [place] [address] [address] David Phillips Cholesterol in HDL [Mass/Vol] 68 mg/dL Critically high 40-60 [facility] Comment on above: Performed By: #### D ATCBC #### [facility] [address] [place] [address] [address] David Phillips Cholesterol in LDL [Mass/Vol] 96.8 mg/dL Normal [facility] Comment on above: Performed By: #### D ATCBC #### [facility] [address] [place] [address] [address] David Phillips CO2 [Moles/Vol] 32.2 mmol/L Critically high 21.0-32.0 [facility] Comment on above: Performed By: #### D ATCBC #### [facility] [address] [place] [address] [address] David Phillips Creatinine [Mass/Vol] 0.63 mg/dL Normal 0.55-1.02 [facility] Comment on above: Performed By: #### D ATCBC #### [facility] [address] [place] [address] [address] David Phillips EGFR-AF SOMALI >60 Normal >=60 [facility] Comment on above: Performed By: #### D ATCBC #### [facility] [address] [place] [address] [address] David Phillips EGFR-NON AF SOMALI >60 Normal >=60 [facility] Comment on above: Performed By: #### D ATCBC #### [facility] [address] [place] [address] [address] David Phillips Glucose [Mass/Vol] 97 mg/dL Normal 74-106 [facility] Comment on above: Performed By: #### D ATCBC #### [facility] [address] [place] [address] [address] David Phillips HDL NORMAL > or = 60 mg/dl - LO W CARDIOVASCULAR RISK <40 mg/dl - HIGH CARDIOVASCULAR RISK Normal [facility] Comment on above: Performed By: #### D ATCBC #### [facility] [address] [place] [address] [address] David Phillips LDL CALC NORMAL SEE BELOW Normal [facility] Comment on above: Result Comment: <100 mg/dl OPTIMAL 100 - 129 mg/dl NEAR OR ABOVE OPTIMAL 130 - 159 mg/dl BORDERLINE HIGH 160 - 189 mg/dl HIGH >190 mg/dl VERY HIGH Performed By: #### D ATCBC #### [facility] [address] [place] [address] [address] David Phillips Potassium [Moles/Vol] 4.0 mmol/L Normal 3.5-5.1 [facility] Comment on above: Performed By: #### D ATCBC #### [facility] [address] [place] [address] [address] David Phillips Sodium [Moles/Vol] 140 mmol/L Normal 136-145 [facility] Comment on above: Performed By: #### D ATCBC #### [facility] [address] [place] [address] [address] David Phillips Triglyceride [Mass/Vol] 51 mg/dL Normal <=150 [facility] Comment on above: Performed By: #### D ATCBC #### [facility] [address] [place] [address] [address] David Phillips Urea nitrogen [Mass/Vol] 17.0 mg/dL Normal 7.0-18.0 [facility] Comment on above: Performed By: #### D ATCBC #### [facility] [address] [place] [address] [address] David Phillips Urea nitrogen/Creatinine [Mass ratio] 27.0 mg/mg Normal [facility] Comment on above: Performed By: #### D ATCBC #### [facility] [address] [place] [address] [address] David Phillips VLDL CALC 10.2 mg/dL Normal [facility] Comment on above: Performed By: #### D ATCBC #### [facility] [address] [place] [address] Dr. David Phillips CBC AUTO DIFFon 02-07-2022 BASO # 0.1 103/ul Normal 0.0-0.1 [facility] Comment on above: Performed By: #### D ATCBC #### [facility] [address] [place] [address] Dr. David Phillips Basophils/100 WBC (Bld) 0.5 % Normal 0.2-2.0 [facility] Comment on above: Performed By: #### D ATCBC #### [facility] [address] [place] [address] Dr. David Phillips EO # 0.2 103/ul Normal 0.0-0.7 [facility] Comment on above: Performed By: #### D ATCBC #### [facility] [address] [place] [address] Dr. David Phillips Eosinophils/100 WBC (Bld) 1.4 % Normal 0.9-7.0 [facility] Comment on above: Performed By: #### D ATCBC #### [facility] [address] [place] [address] Dr. David Phillips Erythrocyte distribution width (RBC) [Ratio] 13.2 % Normal 11.0-15.0 [facility] Comment on above: Performed By: #### D ATCBC #### [facility] [address] [place] [address] Dr. David Phillips Hematocrit (Bld) [Volume fraction] 42.7 % Normal 36.0-48.0 [facility] Comment on above: Performed By: #### D ATCBC #### [facility] [address] [place] [address] Dr. David Phillips Hemoglobin (Bld) [Mass/Vol] 13.7 g/dL Normal 12.0-16.0 [facility] Comment on above: Performed By: #### D ATCBC #### [facility] [address] [place] [address] [address] David Phillips IG # 0.04 10e3/ul Critically high 0.00-0.[address] [facility] Comment on above: Performed By: #### D ATCBC #### [facility] [address] [place] [address] [address] David Phillips IG % 0.4 % Normal 0.0-0.5 [facility] Comment on above: Performed By: #### D ATCBC #### [facility] [address] [place] [address] [address] David Phillips LYMPH # 1.5 103/ul Normal 1.2-3.8 [facility] Comment on above: Performed By: #### D ATCBC #### [facility] [address] [place] [address] Dr. David Phillips Lymphocytes/100 WBC (Bld) 12.9 % Critically low 20.5-60.0 [facility] Comment on above: Performed By: #### D ATCBC #### [facility] [address] [place] [address] Dr. David Phillips MCH (RBC) [Entitic mass] 29.0 pg Normal 26.7-34.0 [facility] Comment on above: Performed By: #### D ATCBC #### [facility] [address] [place] [address] Dr. David Phillips MCHC (RBC) [Mass/Vol] 32.1 g/dL Normal 29.9-35.2 [facility] Comment on above: Performed By: #### D ATCBC #### [facility] [address] [place] [address] Dr. David Phillips MCV (RBC) [Entitic vol] 90.5 fL Normal 81.0-99.0 [facility] Comment on above: Performed By: #### D ATCBC #### [facility] [address] [place] [address] Dr. David Phillips MONO # 0.9 103/ul Critically high 0.3-0.8 [facility] Comment on above: Performed By: #### D ATCBC #### [facility] [address] [place] [address] [address] David Phillips Monocytes/100 WBC (Bld) 7.5 % Normal 1.7-12.0 [facility] Comment on above: Performed By: #### D ATCBC #### [facility] [address] [place] [address] [address] David Phillips NEUT # 8.8 103/ul Critically high 1.4-6.5 [facility] Comment on above: Performed By: #### D ATCBC #### [facility] [address] [place] [address] Dr. David Phillips Neutrophils/100 WBC (Bld) 77.3 % Critically high 43.0-75.0 [facility] Comment on above: Performed By: #### D ATCBC #### [facility] [address] [place] [address] Dr. David Phillips Platelet mean volume (Bld) [Entitic vol] 8.9 fL Critically low 9.5-13.5 [facility] Comment on above: Performed By: #### D ATCBC #### [facility] [address] [place] [address] Dr. David Phillips PLT 283 103/ul Normal 150-450 [facility] Comment on above: Performed By: #### D ATCBC #### [facility] [address] [place] [address] Dr. David Phillips RBC 4.72 106/ul Normal 4.20-5.40 [facility] Comment on above: Performed By: #### D ATCBC #### [facility] [address] [place] [address] Dr. David Phillips WBC 11.4 103/ul Critically high 4.0-11.0 [facility] Comment on above: Performed By: #### D ATCBC #### [facility] [address] [place] [address] Dr. David Phillips BRIANNA- BMP WITH LIPIDon 2021 Anion gap [Moles/Vol] 9.1 mmol/L Normal [facility] Comment on above: Performed By: #### D ATBMP #### [facility] [address] [place] [address] [address] David Phillips Calcium [Mass/Vol] 9.0 mg/dL Normal 8.5-10.1 [facility] Comment on above: Performed By: #### D ATBMP #### [facility] [address] [address] [address] David Phillips Chloride [Moles/Vol] 103 mmol/L Normal 98-107 [facility] Comment on above: Performed By: #### D ATBMP #### [facility] [address] [place] [address] [address] David Phillips Cholesterol [Mass/Vol] 183 mg/dL Normal <=200 [facility] Comment on above: Performed By: #### D ATBMP #### [facility] [address] [address] [address] David Phillips Cholesterol in HDL [Mass/Vol] 75 mg/dL Critically high 40-60 [facility] Comment on above: Performed By: #### D ATBMP #### [facility] [address] [place] [address] [address] David Phillips Cholesterol in LDL [Mass/Vol] 95.2 mg/dL Normal [facility] Comment on above: Performed By: #### D ATBMP #### [facility] [address] [address] [address] David Phillips CO2 [Moles/Vol] 31.1 mmol/L Normal 21.0-32.0 [facility] Comment on above: Performed By: #### D ATBMP #### [facility] [address] [address] [address] David Phillips Creatinine [Mass/Vol] 0.71 mg/dL Normal 0.55-1.02 [facility] Comment on above: Performed By: #### D ATBMP #### [facility] [address] [address] [address] David Phillips EGFR-AF SOMALI >60 Normal >=60 [facility] Comment on above: Performed By: #### D ATBMP #### [facility] [address] [address] [address] David Phillips EGFR-NON AF SOMALI >60 Normal >=60 [facility] Comment on above: Performed By: #### D ATBMP #### [facility] [address] [address] [address] David Phillips Glucose [Mass/Vol] 108 mg/dL Critically high 74-106 [facility] Comment on above: Performed By: #### D ATBMP #### [facility] [address] [address] [address] David Phillips HDL NORMAL > or = 60 mg/dl - LO W CARDIOVASCULAR RISK <40 mg/dl - HIGH CARDIOVASCULAR RISK Normal [facility] Comment on above: Performed By: #### D ATBMP #### [facility] [address] [address] [address] David Phillips LDL CALC NORMAL SEE BELOW Normal [facility] Comment on above: Result Comment: <100 mg/dl OPTIMAL 100 - 129 mg/dl NEAR OR ABOVE OPTIMAL 130 - 159 mg/dl BORDERLINE HIGH 160 - 189 mg/dl HIGH >190 mg/dl VERY HIGH Performed By: #### D ATBMP #### [facility] [address] [address] [address] David Phillips Potassium [Moles/Vol] 4.2 mmol/L Normal 3.5-5.1 [facility] Comment on above: Performed By: #### D ATBMP #### [facility] [address] [address] [address] David Phillips Sodium [Moles/Vol] 139 mmol/L Normal 136-145 [facility] Comment on above: Performed By: #### D ATBMP #### [facility] [address] [address] [address] David Phillips Triglyceride [Mass/Vol] 64 mg/dL Normal <=150 [facility] Comment on above: Performed By: #### D ATBMP #### [facility] [address] [address] [address] David Phillips Urea nitrogen [Mass/Vol] 15.0 mg/dL Normal 7.0-18.0 [facility] Comment on above: Performed By: #### D ATBMP #### [facility] [address] [address] [address] David Phillips Urea nitrogen/Creatinine [Mass ratio] 21.1 mg/mg Normal [facility] Comment on above: Performed By: #### D ATBMP #### [facility] [address] [address] [address] David Phillips VLDL CALC 12.8 mg/dL Normal [facility] Comment on above: Performed By: #### D ATBMP #### [facility] [address] [place] [address] Dr. David Phillips GLYCOHEMOGLOBIN A1Con 2021 ADA RECOMMENDATION SEE BELOW Normal [facility] Comment on above: Result Comment: ADA RECOMMENDED LIMIT 4.0 - 6.0 ADA THERAPEUTIC TARGET < 7.0 ACTION SUGGESTED > 7.0 Performed By: #### D ATA1C #### [facility] [address] [place] [address] Dr. David Phillisp Glucose [Mass/Vol] 111 mg/dL Normal [facility] Comment on above: Performed By: #### D ATA1C #### [facility] [address] [place] [address] Dr. David Phillips HbA1c (Bld) [Mass fraction] 5.5 % Normal 4.5-6.2 [facility] Comment on above: Performed By: #### D ATA1C #### [facility] [address] [place] [address] Dr. David Phillips SGOTon 02-07-2022 AST [Catalytic activity/Vol] 19 U/L Normal 15-37 [facility] Comment on above: Performed By: #### A LT, AST #### [facility] [address] [place] [address] Dr. David Phillips SGPTon 02-07-2022 ALT [Catalytic activity/Vol] 27 U/L Normal 14-59 [facility] Comment on above: Performed By: #### A LT, AST #### [facility] [address] [place], [place] [id number] Dr. David Phillips CBC AUTO DIFFon 11-28-2021 BASO # 0.0 103/ul Normal 0.0-0.1 [facility] Comment on above: Performed By: #### D ATCBC #### [facility] [address] [place] [address] Dr. David Phillips Basophils/100 WBC (Bld) 0.1 % Critically low 0.2-2.0 [facility] Comment on above: Performed By: #### D ATCBC #### [facility] [address] [place] [address] Dr. David Phillips EO # 0.0 103/ul Normal 0.0-0.7 [facility] Comment on above: Performed By: #### D ATCBC #### [facility] [address] [place] [place] [address] Dr. David Phillips Eosinophils/100 WBC (Bld) 0.0 % Critically low 0.9-7.0 [facility] Comment on above: Performed By: #### D ATCBC #### [facility] [address] [place] [address] Dr. David Phillips Erythrocyte distribution width (RBC) [Ratio] 13.5 % Normal 11.0-15.0 [facility] Comment on above: Performed By: #### D ATCBC #### [facility] [address] [place] [address] Dr. David Phillips Hematocrit (Bld) [Volume fraction] 41.4 % Normal 36.0-48.0 [facility] Comment on above: Performed By: #### D ATCBC #### [facility] [address] [place] [address] Dr. David Phillips Hemoglobin (Bld) [Mass/Vol] 13.4 g/dL Normal 12.0-16.0 [facility] Comment on above: Performed By: #### D ATCBC #### [facility] [address] [place] [address] Dr. David Phillips IG # 0.07 10e3/ul Critically high 0.00-0.03 [facility] Comment on above: Performed By: #### D ATCBC #### [facility] [address] [place] [address] Dr. David Phillips IG % 0.5 % Normal 0.0-0.5 [facility] Comment on above: Performed By: #### D ATCBC #### [facility] [address] [place] [address] Dr. David Phillips LYMPH # 1.0 103/ul Critically low 1.2-3.8 [facility] Comment on above: Performed By: #### D ATCBC #### [facility] [address] [place] [address] Dr. David Phillips Lymphocytes/100 WBC (Bld) 7.1 % Critically low 20.5-60.0 [facility] Comment on above: Performed By: #### D ATCBC #### [facility] [address] [place] [address] Dr. David Phillips MCH (RBC) [Entitic mass] 28.8 pg Normal 26.7-34.0 [facility] Comment on above: Performed By: #### D ATCBC #### [facility] [address] [place] [address] Dr. David Phillips MCHC (RBC) [Mass/Vol] 32.4 g/dL Normal 29.9-35.2 [facility] Comment on above: Performed By: #### D ATCBC #### [facility] [address] [place] [address] Dr. David Phillips MCV (RBC) [Entitic vol] 88.8 fL Normal 81.0-99.0 [facility] Comment on above: Performed By: #### D ATCBC #### [facility] [address] [place] [address] Dr. David Phillips MONO # 0.3 103/ul Normal 0.3-0.8 [facility] Comment on above: Performed By: #### D ATCBC #### [facility] [address] [place] [address] Dr. David Phillips Monocytes/100 WBC (Bld) 1.9 % Normal 1.7-12.0 [facility] Comment on above: Performed By: #### D ATCBC #### [facility] [address] [address] [address] David Phillips NEUT # 12.9 103/ul Critically high 1.4-6.5 [facility] Comment on above: Performed By: #### D ATCBC #### [facility] [address] [address] [address] David Phillips Neutrophils/100 WBC (Bld) 90.4 % Critically high 43.0-75.0 [facility] Comment on above: Performed By: #### D ATCBC #### [facility] [address] [address] [address] David Phillips Platelet mean volume (Bld) [Entitic vol] 9.1 fL Critically low 9.5-13.5 [facility] Comment on above: Performed By: #### D ATCBC #### [facility] [address] [address] [address] David Phillips PLT 296 103/ul Normal 150-450 [facility] Comment on above: Performed By: #### D ATCBC #### [facility] [address] [address] [address] David Phillips RBC 4.66 106/ul Normal 4.20-5.40 [facility] Comment on above: Performed By: #### D ATCBC #### [facility] [address] [address] [address] David Phillips WBC 14.3 103/ul Critically high 4.0-11.0 [facility] Comment on above: Performed By: #### D ATCBC #### [facility] [address] [address] [address] David Phillips BRIANNA- BMP WITH LIPIDon 2021 Anion gap [Moles/Vol] 13.2 mmol/L Normal [facility] Comment on above: Performed By: #### D ATBMP #### [facility] [address] [address] [address] David Phillips Calcium [Mass/Vol] 9.0 mg/dL Normal 8.5-10.1 [facility] Comment on above: Performed By: #### D ATBMP #### [facility] [address] [address] [address] David Phillips Chloride [Moles/Vol] 105 mmol/L Normal 98-107 [facility] Comment on above: Performed By: #### D ATBMP #### [facility] [address] [address] [address] David Phillips Cholesterol [Mass/Vol] 191 mg/dL Normal <=200 [facility] Comment on above: Performed By: #### D ATBMP #### [facility] [address] [address] [address] David Phillips Cholesterol in HDL [Mass/Vol] 71 mg/dL Critically high 40-60 [facility] Comment on above: Performed By: #### D ATBMP #### [facility] [address] [address] [address] David Phillips Cholesterol in LDL [Mass/Vol] 107.4 mg/dL Normal [facility] Comment on above: Performed By: #### D ATBMP #### [facility] [address] [address] [address] David Phillips CO2 [Moles/Vol] 28.7 mmol/L Normal 21.0-32.0 [facility] Comment on above: Performed By: #### D ATBMP #### [facility] [address] [address] [address] David Phillips Creatinine [Mass/Vol] 0.62 mg/dL Normal 0.55-1.02 [facility] Comment on above: Performed By: #### D ATBMP #### [facility] [address] [address] [address] David Phillips EGFR-AF SOMALI >60 Normal >=60 [facility] Comment on above: Performed By: #### D ATBMP #### [facility] [address] [address] [address] David Phillips EGFR-NON AF SOMALI >60 Normal >=60 [facility] Comment on above: Performed By: #### D ATBMP #### [facility] [address] [address] [address] David Phillips Glucose [Mass/Vol] 128 mg/dL Critically high 74-106 [facility] Comment on above: Performed By: #### D ATBMP #### [facility] [address] [address] [address] David Phillips HDL NORMAL > or = 60 mg/dl - LO W CARDIOVASCULAR RISK <40 mg/dl - HIGH CARDIOVASCULAR RISK Normal [facility] Comment on above: Performed By: #### D ATBMP #### [facility] [address] [address] [address] David Phillips LDL CALC NORMAL SEE BELOW Normal [facility] Comment on above: Result Comment: <100 mg/dl OPTIMAL 100 - 129 mg/dl NEAR OR ABOVE OPTIMAL 130 - 159 mg/dl BORDERLINE HIGH 160 - 189 mg/dl HIGH >190 mg/dl VERY HIGH Performed By: #### D ATBMP #### [facility] [address] [address] [address] Dvaid Phillips Potassium [Moles/Vol] 3.9 mmol/L Normal 3.5-5.1 [facility] Comment on above: Performed By: #### D ATBMP #### [facility] [address] [address] [address] David Phillips Sodium [Moles/Vol] 143 mmol/L Normal 136-145 [facility] Comment on above: Performed By: #### D ATBMP #### [facility] [address] [address] [address] David Phillips Triglyceride [Mass/Vol] 63 mg/dL Normal <=150 [facility] Comment on above: Performed By: #### D ATBMP #### [facility] [address] [address] [address] David Phillips Urea nitrogen [Mass/Vol] 15.0 mg/dL Normal 7.0-18.0 [facility] Comment on above: Performed By: #### D ATBMP #### [facility] [address] [address] [address] David Phillips Urea nitrogen/Creatinine [Mass ratio] 24.2 mg/mg Normal [facility] Comment on above: Performed By: #### D ATBMP #### [facility] [address] [address] [address] David Phillips VLDL CALC 12.6 mg/dL Normal [facility] Comment on above: Performed By: #### D ATBMP #### [facility] [address] [address] [address] David Phillips GLYCOHEMOGLOBIN A1Con 2021 ADA RECOMMENDATION SEE BELOW Normal [facility] Comment on above: Result Comment: ADA RECOMMENDED LIMIT 4.0 - 6.0 ADA THERAPEUTIC TARGET < 7.0 ACTION SUGGESTED > 7.0 Performed By: #### D ATCBC #### [facility] [address] [place] [address] Dr. David Phillips Glucose [Mass/Vol] 105 mg/dL Normal [facility] Comment on above: Performed By: #### D ATCBC #### [facility] [address] [address] [address] David Phillips HbA1c (Bld) [Mass fraction] 5.3 % Normal 4.5-6.2 [facility] Comment on above: Performed By: #### D ATCBC #### [facility] [address] [place] [address] Dr. David Phillips SCREENING MAMMOGRAM W/GAIL, BILATERAL*on [...] VERY IMPORTANT TO YOUR HEALTH. THE CURRENT [place] [employer] GUIDELINES RECOMMENDS ANNUAL MAMMOGRAPHY BEGINNING AT AGE 40 THIS FACILITY USES A REMINDER SYSTEM TO ENSURE ALL PATIENTS RECEIVE REMINDER NOTIFICATIONS AT THE APPROPRIATE TIME BASED ON THE RECOMMENDATIONS OF THIS EXAM. Board Certified Radiologist. Accredited by the ACR and FDA. Report reported and signed by Trell Martin on 06/11/2021 1236 Normal [facility] [employer] LARGE JOINT/BURSA INJECTION AND/OR ASPIRATION: R hip [...] fashion. The patient was prepped with Chloraprep. 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 [employer] X-rays, weightbearin g AP pelvis and [...] sacroiliac joints demonstrate moderate evidence of osteoarthrosis. [facility] CBCon 02-25-2018 ABSOLUTE BAS 0.[address] [facility] ABSOLUTE EOS 0.[address] [facility] ABSOLUTE NEUTROPHIL COUNT 4.5 x10 Normal 1.0-7.0 [facility] Basophils/100 WBC Auto (Bld) 0.7 % Normal 0.0-2.0 [facility] DTYPE AUTO DIFF Normal [facility] Eosinophils/100 WBC Auto (Bld) 1.9 % Normal 0.0-11.0 [facility] Lymphocytes Auto #/vol (Bld) 1.80 X10 Normal [facility] Lymphocytes/100 WBC Auto (Bld) 25.1 % Normal 20.0-55.0 [facility] Monocytes Auto #/vol (Bld) 0.6 X10 Normal [facility] Monocytes/100 WBC Auto (Bld) 8.3 % Normal 0.0-10.0 [facility] Neutrophils/100 WBC Auto (Bld) 64.0 % Normal 37.0-75.0 [facility] Erythrocyte distribution width Auto Ratio (RBC) 13.4 % Normal 11.5-14.5 [facility] Hematocrit Auto Volume Fraction (Bld) 39.9 % Normal 36.0-48.0 [facility] Hemoglobin mass conc (Bld) 13.4 g/dL Normal 12.0-16.0 [facility] MCH Auto Entitic mass (RBC) 28.7 pg Normal 26.0-35.0 [facility] MCHC Auto mass conc (RBC) 33.5 g/dL Normal 27.0-37.0 [facility] MCV Auto Entitic volume (RBC) 85.7 fL Normal 80.0-100.0 [facility] Platelet mean volume Auto Entitic volume (Bld) 7.3 fL Low 7.4-11.0 [facility] Platelets Auto #/vol (Bld) 329 /cmm Normal 130.0-400. 0 [facility] RBC Auto #/vol (Bld) 4.66 /cmm Normal 4.0-5.4 [facility] WBC Auto #/vol (Bld) 7.0 /cmm Normal 3.6-11.0 [facility] CHEMISTRY, [facility] ALT enzyme act/vol 30 U/L Normal 9-52 [facility] Calcium mass conc 9.3 mg/dL Normal 8.4-10.2 [facility] Cholesterol in HDL mass conc 49 mg/dL Normal 33-75 [facility] Cholesterol in LDL mass conc 91 MG/DL Normal [facility] Cholesterol in VLDL mass conc 22 mg/dL Normal 5.0-25 [facility] Cholesterol mass conc 162 mg/dL Normal 107-217 [facility] Cholesterol.total/C holesterol in HDL mass ratio 3.31 {ratio} Normal [facility] Comment on above: Result Comment: RISK TOTAL/HDL RATIO MEN WOMEN1/2 AVERAGE 3.43 3.27AVERAGE 4.97 4.442X AVERAGE 9.55 7.053X AVERAGE 23.99 11.04 Creatinine mass conc 0.6 mg/dL Low 0.7-1.2 [facility] EST. GFR, >60 Normal [facility] EST. GFR,Non >60 Normal [facility] Gamma glutamyl transferase [Enzymatic activity/volume] in Serum or Plasma 18 IU/L Normal 12-43 [facility] GFR/1.73 sq M predicted among non-blacks MDRD vol rate/area (S/P/Bld) Average GFR for 60-69 years old = 85. Normal [facility] Comment on above: Result Comment: [employer] karime Kidney disease, GFR = <60.Kidney failure, GFR = <15.The GFR estimate is not adjusted for extreme body surface area or acute process, nor has it been validated for women or ethnic groups other than and . Glucose mass conc 92 mg/dL Normal 70-100 [facility] Comment on above: Result Comment: NORM AL <100 mg/dLPREDIABETES 101-126 mg/dLDIABETES 126 mg/dL or higher Potassium molar conc 4.3 mmol/L Normal 3.5-5.1 [facility] Sodium molar conc 142 mmol/L Normal 137-145 [facility] Triglyceride mass conc 111 mg/dL Normal 0-150 [facility] Urea nitrogen mass conc (Bld) 17 mg/dL Normal 7-20 [facility] HEMOGLOBIN A1Con 02-25-2018 Glucose mass conc 105 mg/dL Normal [facility] Hemoglobin A1c/Hemoglobin.tota l mass fraction (Bld) 5.3 % Normal 0-6 [facility] Comment on above: Result Comment: NORM AL <5.7%PREDIABETES 5.7-6.4%DIABETES 6.5% OR HIGHER WRISTon 12-05-2017 WRIST Final ReportAccession No: [id number] Performed: Dec 05 2017 11:45AMExamination: RIGHT [...] GARY BLANCO D.O.Trans: abond : cc: Normal [facility] WRISTon 11-07-2017 WRIST Final ReportAccession No: [id number] Performed: Nov 07 2017 9:58AMExamination: RIGHT [...] MADIE LORENZO M.D.Trans: lcoope : cc: Normal [facility] XR WRIST RIGHT 3+ VIEWS [...] angulation.Distal ulna intact.Carpal bones appear well positioned. [id number]-vxfdcwwl arthritic changes seen of proximal carpal row, greatest laterally.IMPRESSION:1. Healing distal radial nondisplaced nonarticular transverse fracture now seen.2. Chronic yqfn-ff-rbgttehk arthritic changes, greatest involving lateral carpal joints.ARR/trnWorkstation ID: [id number] by: ANDREZ ECHAVARRIA on FriOct 09, 2017 7:30:06 AM EDTTranscribed by: LANI EDWARDS on FriOct 09, 2017 9:26:53 AM EDTFinalized by: ANDREZ ECHAVARRIA on FriOct 09, 2017 4:08:57 PM EDT Normal [facility] Comment on above: Order Comment: Reaso n for exam?:rt wrist painInjury/Trauma or Illness?:Injury/TraumaHow long have you had these symptoms (acute/chronic)?:AcuteHistory of cancer?:unkSurgeries, chemotherapy, or radiation?:carpal tunnelType of Exam?:Subsequent/Follow-upMechanism of injury?:fall XR WRIST RIGHT 3 VIEWSon XR WRIST RIGHT 3 VIEWS EXAMINATION: XR WRIST RIGHT 3 VIEWS [id number] CLINICAL HISTORY: 61-year-old female with history of fall swelling right posterior wristFINDINGS/IMPRESSION: Comparison: Compared to none available.No definite acute fracture or malalignment of the right wrist.Focal soft tissue swelling dorsally is seen at the level of the carpal metacarpal articulation. No pathologic calcifications. Blunted appearance of the ulnar styloid could relate to remote trauma. Normal [facility] Mammogramon 11-07-2016 Mammogram Patient Name: Fe YIN : [id number]: [id number] Date: [id number] #: [id number] Class: OPhysician: Conchis COUCH Physician: , Study [...] results.The National [employer] and the [employer] recommend annual screening mammograms for women age 40 and older.Dictated: Isidro Morrison 11/07/2016 15:09Transcribed: Isidro Morrison 11/07/2016 15:11Electronically Signed: Isidro Morrison 11/07/2016 15:11[facility] [place] [address] [email or web address], [place] [address] [email or web address] Vital Signs Date Time Vital Sign Value Performing Clinician Facility 01-05-2024 11:50-0400 Diastolic blood pressure 60 mm[Hg] DO Karen Cardoso Work Phone: [facility] 01-05-2024 11:50-0400 Heart rate 88 /min DO Karen Cardoso Work Phone: [facility] 01-05-2024 11:50-0400 Respiratory rate 16 /min DO Karen Cardoso Work Phone: [facility] 01-05-2024 11:50-0400 SaO2% (BldA) [Mass fraction] 96 % DO Karen Cardoso Work Phone: [facility] 01-05-2024 11:50-0400 Systolic blood pressure 114 mm[Hg] DO Karen Cardoso Work Phone: [facility] 01-05-2024 11:20-0400 Inhaled oxygen flow rate 1 L/min DO Karen Cardoso Work Phone: [facility] 01-05-2024 11:00-0400 Body temperature 98 [degF] DO Karen Cardoso Work Phone: [facility] 01-05-2024 06:20-0400 Body height 165.1 cm DO Karen Cardoso Work Phone: [facility] 01-05-2024 06:20-0400 Body weight 70 kg DO Karen Cardoso Work Phone: [facility] 12-25-2023 14:27-0400 Body height 165.1 cm DO Karen Cardoso Work Phone: [facility] 12-25-2023 14:27-0400 Body mass index (BMI) [Ratio] 25.7 kg/m2 DO Karen Cardoso Work Phone: [facility] 12-25-2023 14:27-0400 Body weight 70 kg DO Karen Cardoso Work Phone: [facility] 12-12-2023 09:09-0400 Body height 165.1 cm DO Karen Cardoso Work Phone: [facility] 12-12-2023 09:09-0400 Body mass index (BMI) [Ratio] 25.7 kg/m2 DO Karen Cardoso Work Phone: [facility] 12-12-2023 09:09-0400 Body temperature 97.4 [degF] DO Karen Cardoso Work Phone: [facility] 12-12-2023 09:09-0400 Body weight 70.3 kg DO Karen Cardoso Work Phone: [facility] 12-12-2023 09:09-0400 Diastolic blood pressure 76 mm[Hg] DO Karen Cardoso Work Phone: [facility] 12-12-2023 09:09-0400 Heart rate 76 /min DO Karen Cardoso Work Phone: [facility] 12-12-2023 09:09-0400 Respiratory rate 16 /min DO Karen Cardoso Work Phone: [facility] 12-12-2023 09:09-0400 SaO2% (BldA) [Mass fraction] 98 % DO Karen Cardoso Work Phone: [facility] 12-12-2023 09:09-0400 Systolic blood pressure 130 mm[Hg] DO Karen Cardoso Work Phone: [facility] 09-15-2023 13:54-0400 Body height 165.1 cm DO Karen Cardoso Work Phone: [facility] 09-15-2023 13:54-0400 Body mass index (BMI) [Ratio] 26.1 kg/m2 DO Karen Cardoso Work Phone: [facility] 09-15-2023 13:54-0400 Body temperature 97.3 [degF] DO Karen Cardoso Work Phone: [facility] 09-15-2023 13:54-0400 Body weight 71.21 kg DO Karen Cardoso Work Phone: [facility] 09-15-2023 13:54-0400 Diastolic blood pressure 78 mm[Hg] DO Karen Cardoso Work Phone: [facility] 09-15-2023 13:54-0400 Heart rate 81 /min DO Karen Cardoso Work Phone: [facility] 09-15-2023 13:54-0400 SaO2% (BldA) [Mass fraction] 97 % DO Karen Cardoso Work Phone: [facility] 09-15-2023 13:54-0400 Systolic blood pressure 118 mm[Hg] DO Karen Cardoso Work Phone: [facility] 06-26-2023 09:10-0500 Body height 165.1 cm DO Karen Cardoso Work Phone: [facility] 06-26-2023 09:10-0500 Body mass index (BMI) [Ratio] 26.6 kg/m2 DO Karen Cardoso Work Phone: [facility] 06-26-2023 09:10-0500 Body temperature 97.9 [degF] DO Karen Cardoso Work Phone: [facility] 06-26-2023 09:10-0500 Body weight 72.8 kg DO Karen Cardoso Work Phone: [facility] 06-26-2023 09:10-0500 Diastolic blood pressure 78 mm[Hg] DO Karen Cardoso Work Phone: [facility] 06-26-2023 09:10-0500 Heart rate 91 /min DO Karen Cardoso Work Phone: [facility] 06-26-2023 09:10-0500 Respiratory rate 18 /min DO Karen Cardoso Work Phone: [facility] 06-26-2023 09:10-0500 SaO2% (BldA) [Mass fraction] 98 % DO Karen Cardoso Work Phone: [facility] 06-26-2023 09:10-0500 Systolic blood pressure 128 mm[Hg] DO Karen Cardoso Work Phone: [facility] 06-13-2023 09:14-0500 Body height 165.1 cm DO Karen Cardoso Work Phone: [facility] 06-13-2023 09:14-0500 Body mass index (BMI) [Ratio] 26.1 kg/m2 DO Karen Cardoso Work Phone: [facility] 06-13-2023 09:14-0500 Body weight 71.21 kg DO Karen Cardoso Work Phone: [facility] 05-14-2023 08:15-0500 Body height 165.1 cm Finn Ortez II Other [facility] 12-12-2022 09:10-0400 Body height 165.1 cm Karen Maggiesrinivas Other [employer] [facility] [employer] Other 12-12-2022 09:10-0400 Body mass index (BMI) [Ratio] 27.12 kg/m2 Karen Maggiesrinivas Other [employer] Other 12-12-2022 09:10-0400 Body temperature 98.6 [degF] Karen Cardoso Other [employer] Other 12-12-2022 09:10-0400 Body weight 73.94 kg Karen Maggiesrinivas Other [employer] Other 12-12-2022 09:10-0400 Diastolic blood pressure 78 mm[Hg] Karen Cardoso Other [employer] Other 12-12-2022 09:10-0400 Respiratory rate 18 /min Karen Cardoso Other [employer] Other 12-12-2022 09:10-0400 SaO2% (BldA) [Mass fraction] 96 % Karen Cardoso Other [employer] Other 12-12-2022 09:10-0400 Systolic blood pressure 124 mm[Hg] Karen Cardoso Other [employer] Other 07-12-2022 11:00-0400 Body height 165.1 cm Zhou Heiya Other [employer] Other 07-12-2022 11:00-0400 Body mass index (BMI) [Ratio] 26.62 kg/m2 Zhou Heiya Other [employer] Other 07-12-2022 11:00-0400 Body weight 72.58 kg Zhou Heiya Other [employer] Other 06-13-2022 09:10-0500 Body height 165.1 cm Karen Cardoso Other [employer] Other 06-13-2022 09:10-0500 Body mass index (BMI) [Ratio] 27.29 kg/m2 Karen Cardoso Other [employer] Other 06-13-2022 09:10-0500 Body weight 74.39 kg Karen Cardoso Other [employer] Other 06-13-2022 09:10-0500 Diastolic blood pressure 80 mm[Hg] Karen Cardoso Other [employer] Other 06-13-2022 09:10-0500 Respiratory rate 18 /min Karen Cardoso Other [employer] Other 06-13-2022 09:10-0500 SaO2% (BldA) [Mass fraction] 98 % Karen Cardoso Other [employer] Other 06-13-2022 09:10-0500 Systolic blood pressure 132 mm[Hg] Karen Cardoso Other [employer] Other 02-12-2022 10:50-0400 Body height 165.1 cm Karen Cardoso Other [employer] Other 12-06-2021 11:30-0400 Body height 165.1 cm Karen Cardoso Other [employer] Other 12-06-2021 11:30-0400 Body mass index (BMI) [Ratio] 25.62 kg/m2 Karen Cardoso Other [employer] Other 12-06-2021 11:30-0400 Body temperature 97.6 [degF] Karen Cardoso Other [employer] Other 12-06-2021 11:30-0400 Body weight 69.85 kg Karen Cardoso Other [employer] Other 12-06-2021 11:30-0400 Diastolic blood pressure 82 mm[Hg] Karen Cardoso Other [employer] Other 12-06-2021 11:30-0400 Respiratory rate 16 /min Karen Cardoso Other [employer] Other 12-06-2021 11:30-0400 SaO2% (BldA) [Mass fraction] 96 % Karen Cardoso Other [employer] Other 12-06-2021 11:30-0400 Systolic blood pressure 122 mm[Hg] Karen Cardoso Other [employer] Other 01-26-2021 09:12-0500 BMI (Body Mass Index) 28.06 kg/m2 [facility] [facility]2020 09:12-0500 Body weight 76.48 kg [facility] 05-23-2020 09:12-0500 Height 165.1 cm [facility] 05-02-2020 12:42-0500 BMI (Body Mass Index) 28.36 kg/m2 [facility] 05-02-2020 12:42-0500 Body weight 77.29 kg [facility] 05-02-2020 12:42-0500 Height 165.1 cm [facility] 04-29-2020 14:49-0500 Body surface area Derived from formula 1.8 m2 [facility] 04-27-2020 08:58-0500 BMI (Body Mass Index) 26.63 kg/m2 [facility] 04-27-2020 08:58-0500 Body weight 72.58 kg [facility] 04-27-2020 08:58-0500 Height 165.1 cm [facility] 07-27-2018 08:54-0400 BMI (Body Mass Index) 26.48 kg/m2 [facility] 07-27-2018 08:54-0400 Body Temperature 98.49 [degF] [facility] 07-27-2018 08:54-0400 Body weight 73.85 kg [facility] 07-27-2018 08:54-0400 BP Diastolic 60 mm[Hg] [facility] 07-27-2018 08:54-0400 BP Systolic 110 mm[Hg] [facility] 07-27-2018 08:54-0400 Height 167 cm [facility] 07-27-2018 08:54-0400 Pulse (Heart Rate) 65 /min [facility] 07-27-2018 08:54-0400 Pulse Oximetry 96 % [facility] 07-27-2018 08:54-0400 Respiratory Rate 16 /min [facility] 05-11-2018 15:19-0500 BMI (Body Mass Index) 26.57 kg/m2 [facility] Work Phone: 05-11-2018 15:19-0500 Body Temperature 97.3 [degF] [facility] Work Phone: 05-11-2018 15:19-0500 BP Diastolic 68 mm[Hg] [facility] Work Phone: 05-11-2018 15:19-0500 BP Systolic 118 mm[Hg] [facility] Work Phone: 05-11-2018 15:19-0500 Height 167 cm [facility] Work Phone: 05-11-2018 15:19-0500 Pulse (Heart Rate) 73 /min [facility] Work Phone: 05-11-2018 15:19-0500 Pulse Oximetry 97 % [facility] Work Phone: 05-11-2018 15:19-0500 Respiratory Rate 16 /min [facility] Work Phone: 05-11-2018 15:19-0500 Weight 74.12 kg [facility] Work Phone: 03-30-2018 13:16-0500 BMI (Body Mass Index) 26.7 kg/m2 [facility] Work Phone: 03-30-2018 13:16-0500 Body Temperature 97.7 [degF] [facility] Work Phone: 03-30-2018 13:16-0500 BP Diastolic 58 mm[Hg] [facility] Work Phone: 03-30-2018 13:16-0500 BP Systolic 116 mm[Hg] [facility] Work Phone: 03-30-2018 13:16-0500 Height 167 cm [facility] Work Phone: 03-30-2018 13:16-0500 Pulse (Heart Rate) 66 /min [facility] Work Phone: 03-30-2018 13:16-0500 Pulse Oximetry 97 % [facility] Work Phone: 03-30-2018 13:16-0500 Respiratory Rate 16 /min [facility] Work Phone: 03-30-2018 13:16-0500 Weight 74.48 kg [facility] Work Phone: 12-05-2017 11:24-0400 BMI (Body Mass Index) 26.61 kg/m2 [facility] 12-05-2017 11:24-0400 BP Diastolic 78 mm[Hg] [facility] 12-05-2017 11:24-0400 BP Systolic 130 mm[Hg] [facility] 12-05-2017 11:24-0400 Height 162.6 cm [facility] 12-05-2017 11:24-0400 Pulse (Heart Rate) 57 /min [facility] 12-05-2017 11:24-0400 Weight 70.31 kg [facility] 11-07-2017 09:44-0400 BMI (Body Mass Index) 26.61 kg/m2 [facility] 11-07-2017 09:44-0400 Height 162.6 cm [facility] 11-07-2017 09:44-0400 Weight 70.31 kg [facility] 10-08-2017 14:41-0400 BMI (Body Mass Index) 26.61 kg/m2 [facility] 10-08-2017 14:41-0400 Height 162.6 cm [facility] 10-08-2017 14:41-0400 Weight 70.31 kg [facility] Encounters Encounter Date Encounter Type Care Provider Facility Start: 04-13-2024 ambulatory Floyd Garza acility:[facility] Start: 04-07-2024 End: 04-07-2024 ambulatory Finn Ortez II Facility:[facility] Start: 02-24-2024 End: 02-24-2024 ambulatory DO Karen Cardoso Work Phone: [facility] Work Phone: Start: 02-24-2024 End: 02-24-2024 Patient encounter procedure DO Karen Cardoso Work Phone: [facility] Work Phone: Start: 02-10-2024 Registered Recurring DO Karen Cardoso Work Phone: [facility] Start: 02-05-2024 Non-patient / Non-visit DO Saurabh id Girsrinivas Work Phone[facility] Work Phone: Start: 01-21-2024 End: 01-21-2024 ambulatory DO Karen Cardoso Work Phone: [facility] Work Phone: Start: 01-21-2024 End: 01-21-2024 Patient encounter procedure DO Karen Cardoso Work Phone: [facility] Work Phone: Start: 01-05-2024 Non-patient / Non-visit DO Saurabh id Girvin Work Phone: [facility] Work Phone: Start: 01-05-2024 End: 01-05-2024 Admission to same day surgery center DO Karen Cardoso Work Phone: [facility] [place] Start: 01-05-2024 End: 01-05-2024 ambulatory DO Karen Cardoso Work Phone: [facility] Work Phone: Start: 12-30-2023 Registered Recurring DO Karen Cardoso Work Phone: [facility] Start: 12-26-2023 End: 12-26-2023 ambulatory DO Karen Cardoso Work Phone: [facility] Work Phone: Start: 12-26-2023 End: 12-26-2023 Patient encounter procedure DO Karen Cardoso Work Phone: [facility] Work Phone: Start: 12-25-2023 End: 12-25-2023 Patient encounter procedure DO Karen Cardoso Work Phone: [facility] Work Phone: Start: 12-25-2023 Registered Recurring DO Karen Cardoso Work Phone: [facility]Physical Therapy [place] Start: 12-25-2023 End: 12-25-2023 ambulatory DO Karen Cardoso Work Phone: [facility] Work Phone: Start: 12-22-2023 End: 12-22-2023 Patient encounter procedure DO Karen Cardoso Work Phone: [facility]Pre-Surgical Testing Work Phone: Start: 12-22-2023 End: 12-22-2023 ambulatory DO Karen Cardoso Work Phone: [facility] Work Phone: Start: 12-22-2023 Encounter for preprocedural laboratory examination Finn Ortez II [facility] Start: 12-19-2023 Non-patient / Non-visit DO Saurabh id Girsrinivas Work Phone: [facility] Work Phone: Start: 12-19-2023 Non-patient / Non-visit DO Saurabh id Girvin Work Phone: [facility] [place] [facility] Work Phone: Start: 12-12-2023 Patient encounter status DO Da vipipo Cardoso Work Phone: [facility] Start: 12-12-2023 End: 12-12-2023 ambulatory DO Karen Cardoso Work Phone: [facility] Work Phone: Start: 12-12-2023 End: 12-12-2023 Patient encounter procedure DO Karen Cardoso Work Phone: [facility] Work Phone: Start: 12-06-2023 Non-patient / Non-visit DO Saurabh id Girsrinivas Work Phone: [facility] Work Phone: Start: 11-20-2023 Registered Recurring DO Karen Cardoso Work Phone: [facility] Start: 11-19-2023 End: 11-19-2023 Patient encounter procedure DO Karen Cardoso Work Phone: [facility] Start: 11-19-2023 End: 11-19-2023 ambulatory DO Karen Cardoso Work Phone: [facility] Work Phone: Start: 11-19-2023 End: 11-19-2023 ambulatory DO Karen Cardoso Work Phone: [facility] Work Phone: Start: 11-19-2023 End: 11-19-2023 Patient encounter procedure DO Karen Cardoso Work Phone: [facility] Work Phone: Start: 11-11-2023 Registered Recurring DO Karen Cardoso Work Phone: [facility] Start: 09-18-2023 End: 09-18-2023 ambulatory DO Karen Cardoso Work Phone: [facility] Work Phone: Start: 09-18-2023 End: 09-18-2023 Patient encounter procedure DO Karen Cardoso Work Phone: [facility] Work Phone: Start: 09-15-2023 End: 09-15-2023 Patient encounter procedure DO Karen Serranosrinivas Work Phone: [facility] [place] Work Phone: Start: 09-15-2023 End: 09-15-2023 ambulatory DO Karen Cardoso Work Phone: [facility] Work Phone: Start: 09-15-2023 End: 09-15-2023 Departed Referred DO Karen Cardoso Work Phone: [facility]Lab [facility] [place] Work Phone: Start: 09-09-2023 End: 09-09-2023 ambulatory [...] encounter procedure DO Karen Cardoso Work Phone: [facility] [place] Work Phone: Start: 06-25-2023 End: 06-25-2023 ambulatory MILAGROS LAI Not Available Start: 06-23-2023 Registered Recurring DO Karen Cardoso Work Phone: [facility] Start: 06-23-2023 Non-patient / Non-visit DO Saurabh Cardoso Work Phone: [facility] [employer] Work Phone: Start: 06-16-2023 End: 06-16-2023 ambulatory SHERYL COOPER Not Available Start: 06-13-2023 End: 06-13-2023 ambulatory DO Karen Cardoso Work Phone: [facility] Work Phone: Start: 06-13-2023 End: 06-13-2023 Patient encounter procedure DO Karen Cardoso Work Phone: [facility] Work Phone: Start: 05-14-2023 End: 05-14-2023 ambulatory Finn Pérez II Other [employer] Other Start: 05-14-2023 Office outpatient vi sit 15 minutes Finn [place] II [facility] Start: 05-14-2023 End: 05-14-2023 Patient encounter procedure DO Karen Cardoso Work Phone: [facility]- Start: 04-15-2023 End: 04-15-2023 ambulatory Karen Cardoso Other [employer] Other Start: 04-15-2023 Telephone encounter Karen Cardoso [facility] [place] Start: 03-18-2023 Registered Recurring DO Karen Cardoso Work Phone: [facility] Start: 01-09-2023 End: 01-09-2023 ambulatory Karen Cardoso Other [employer] Other Start: 01-09-2023 Telephone encounter Karen Cardoso [facility] [place] Start: 12-17-2022 End: 12-17-2022 ambulatory Karen Cardoso Other [employer] Other Start: 12-17-2022 Telephone encounter Karen Cardoso [facility] [place] Start: 12-13-2022 End: 12-13-2022 ambulatory Karen Cardoso Other [employer] Other Start: 12-13-2022 Telephone encounter Karen Cardoso [facility] [place] Start: 12-12-2022 End: 12-12-2022 ambulatory Karen Cardoso Other [employer] Other Start: 12-12-2022 Office outpatient vi sit 25 minutes Karen Cardoso [facility] [place] Start: 09-02-2022 End: 09-02-2022 ambulatory Karen Cardoso Other [employer] Other Start: 09-02-2022 Telephone encounter Karen Cardoso [facility] [place] Start: 08-27-2022 End: 08-27-[address] KAREN CARDOSO Facility: Start: 08-01-2022 End: 08-01-2022 ambulatory Karen Cardoso Other [employer] Other Start: 08-01-2022 Telephone encounter Karen Cardoso [facility] [place] Start: 07-18-2022 End: 07-18-2022 ambulatory Finn Pérez II Other [employer] Other Start: 07-18-2022 Telephone encounter Finn Dalalisle II [facility] Start: 07-12-2022 [facility] visit new patient Finn Dalalsilvio hollings[place] II [facility] Start: 07-12-2022 End: 07-12-2022 ambulatory DO Karen Cardoso Work Phone: [facility] Work Phone: Start: 07-12-2022 End: 07-12-2022 Patient encounter procedure DO Karen Cardoso Work Phone: [facility] Start: 06-13-2022 End: 06-13-2022 ambulatory Karen Cardoso Other [employer] Other Start: 06-13-2022 Office outpatient vi sit 15 minutes Karen Cardoso [facility] [place] Start: 03-12-2022 Telephone encounter Karen Cardoso [facility] [place] Start: 03-12-2022 End: 03-13-[address] AL HA [employer] Other Start: 03-06-2022 End: 03-06-2022 ambulatory Karen Cardoso Other [employer] Other Start: 03-06-2022 Telephone encounter Karen Cardoso [facility] [place] Start: 02-12-2022 End: 02-12-2022 ambulatory Karen Cardoso Other [employer] Other Start: 02-12-2022 Telephone encounter Karen Cardoso [facility] [place] Start: 02-07-2022 Telephone encounter Karen Cardoso [facility] [place] Start: 02-07-2022 End: 02-08-[address] KAREN CARDOSO [employer] Other Start: 12-06-2021 End: 12-06-2021 ambulatory Karen Cardoso Other [employer] Other Start: 12-06-2021 Office outpatient vi sit 25 minutes Karen Cardoso [facility] [place] Start: 12-03-2021 End: 12-03-2021 ambulatory Karen Cardoso Other [employer] Other Start: 12-03-2021 Telephone encounter Karen Cardoso [facility] [place] Start: 11-28-2021 End: 11-29-[address] NONE LISTED REQUEST Facility: Start: 02-06-2021 End: 02-10-2021 ambulatory KAREN CARDOSO [facility] Start: 06-05-2020 End: 06-05-2020 Orders Only Annmarie Xavier Work Phone: [facility] Start: 05-23-2020 End: 05-23-2020 Office outpatient visit 15 minutes Chito Land Work Phone: [facility] Comment on above: Primary osteoarthrit is of right hip (Primary Dx); Greater trochanteric bursitis of right hip Start: 05-02-2020 End: 05-02-2020 Patient encounter procedure Chito Land Work Phone: [facility] Comment on above: Primary osteoarthrit is of right hip (Primary Dx); Greater trochanteric bursitis of right hip Start: 04-27-2020 End: 04-27-2020 Subsequent hospital visit by physician Chito Land Work Phone: [facility] Comment on above: Arrived Start: 04-27-2020 End: 04-27-2020 Office outpatient new 30 minutes Chito Land Work Phone: [facility] Comment on above: Primary osteoarthrit is of right hip (Primary Dx); Greater trochanteric bursitis of right hip; Right hip pain Start: 07-27-2018 End: 07-27-2018 Patient encounter procedure PAYTON JAMES [facility] Start: 07-27-2018 End: 07-27-2018 Office outpatient visit 15 minutes Payton James Work Phone: [facility] Comment on above: Acute swimmer's ear of both sides (Primary Dx) Start: 06-21-2018 End: 06-21-2018 Refill Payton James Work Phone: [facility] Start: 06-16-2018 End: 06-16-2018 Refill Payton James Work Phone: [facility] Start: 05-11-2018 Patient encounter procedure PAYTONKIMO JAMES [facility] Start: 05-11-2018 End: 05-11-2018 Office outpatient visit 15 minutes Payton James Work Phone: [facility] Comment on above: Recurrent major depr essive disorder, in partial remission (Primary Dx); Anxiety Start: 04-09-2018 End: 04-09-2018 Patient encounter procedure Pretty Francisffer [facility] Comment on above: Prescription Clarifi cation Start: 04-08-2018 End: 04-08-2018 Patient encounter procedure Other Other [facility] Start: 03-30-2018 End: 03-30-2018 Patient encounter procedure Provider Sebas [facility] Start: 03-30-2018 End: 03-30-2018 Office outpatient visit 15 minutes Paytonkimo Samaniegolynsey Work Phone: [facility] Comment on above: Recurrent major depr essive disorder, in partial remission (Primary Dx); Anxiety Start: 03-25-2018 End: 03-25-2018 Patient encounter procedure Paytonkimo Samaniegolynsey Work Phone: [facility] Comment on above: Medication Managemen t Start: 03-21-2018 End: 03-21-2018 Refill Paytonkimo James Work Phone: [facility] Start: 03-12-2018 Patient encounter procedure [facility] Start: 03-12-2018 End: 03-12-2018 Patient encounter procedure [place] Felipa James Work Phone: [facility] Comment on above: Arrived Start: 03-03-2018 Patient encounter procedure [place] Felipa [facility] Start: 02-25-2018 Patient encounter procedure [place] NON-PATIENT [facility] Start: 12-05-2017 Patient encounter Sendy cr:Freddy Start: 12-05-2017 End: 12-05-2017 Patient encounter Isidro Birch Work Phone: [facility] Start: 12-05-2017 End: 12-05-2017 Office outpatient visit 10 minutes Isidro Birch Work Phone: [facility] Start: 11-07-2017 Patient encounter Sendy Preston shaye:Freddy Start: 11-07-2017 End: 11-07-2017 Patient encounter Isidro Birch Work Phone: [facility] Start: 11-07-2017 End: 11-07-2017 Office outpatient visit 10 minutes Isidro Birch Work Phone: [facility] Start: 10-08-2017 End: 10-09-2017 Ambulatory Isidro Birch Work Phone: [facility] Start: 10-08-2017 End: 10-08-2017 Office outpatient visit 15 minutes Isidro Birch Work Phone: [facility] Start: 10-08-2017 End: 10-08-2017 Ambulatory Isidro Birch Work Phone: [facility] Start: 09-15-2017 End: 09-15-2017 Emergency department patient visit RODRIGO Arash [facility] Start: 05-27-2017 End: 05-27-2017 Ambulatory DESIRE BRITT [facility] Ambula tory Start: 02-18-2017 [facility] Start: 11-07-2016 End: 11-08-2016 Ambulatory [facility] Start: 12-13-2014 Patient encounter DESIRE MOREJON [facility] Procedures Date Procedure Procedure Detail Performing Clinician [...] Surgery: [id number] Result Comment: PERF ORMED BY: [facility] [place] [id number] PATHOLOGIST INSURANCE LAW SPECIALIST KOMAL COFFMAN M.D. Start: 11-19-2023 Methicillin resistan [...] Screening for malign ant neoplasm of colon [facility] Start: 02-24-2024 Plain X-ray of right hip XR hi p RT min 2V(w/wo pelvis)* [facility] Start: 02-24-2024 XR Hip - right 2 Views [facility] Start: 01-21-2024 Plain X-ray of right hip XR hi p RT min 2V(w/wo pelvis)* [facility] Start: 01-21-2024 XR Hip - right 2 Views [facility] Start: 01-05-2024 [facility] Start: 01-05-2024 Hospital admission [facility] Start: 01-05-2024 Plain X-ray of right hip XR lo w pelvis w/RT x-table hip [facility] Start: 01-05-2024 XR Hip - right GE 2 Views [facility] Start: 01-05-2024 [facility] Start: 01-05-2024 Physical therapy procedure [facility] Start: 12-22-2023 [facility] Start: 11-19-2023 MRSA Culture MRSA Culture [facility] Start: 11-19-2023 Methicillin resistan t Staphylococcus aureus [Presence] in Unspecified specimen by Organism specific culture [facility] Start: 11-19-2023 [facility] Start: 09-15-2023 Bacteria identified in Urine by Culture [facility] Start: 09-15-2023 [facility] Start: 06-13-2023 Plain X-ray of right hip XR hi p RT min 2V(w/wo pelvis)* [facility] Start: 06-13-2023 XR Hip - right 2 Views [facility] Start: 11-27-2021 DEXA SCAN DEXA SCAN [facility] Work Phone: Start: 05-23-2020 End: 05-23-2020 Office Visit 05/23/2020 Office Visit Orthopaedics Chito Land MD [address] [place] [id number] [phone] [facility] Start: 05-02-2020 End: 05-02-2020 Office Visit 05/02/2020 Office Visit Orthopaedics Chito Land MD [address] [place] [address] [place] [address] [phone] [facility] Start: 12-28-2019 Influenza vaccination INFLUENZA VACC INE (#1) [facility] Start: 12-28-2019 Influenza vaccinatio n given Sequential Influenza Vaccine (#1) [facility] Start: 10-07-[address] [facility] Start: 03-12-2019 Protein mass conc MAMMOGRAM SC REENING DISCUSSION [facility] Work Phone: Start: 03-12-2019 Screening mammography MAMMOGRA M SCREENING DISCUSSION [facility] Start: 05-11-2018 End: 05-11-2018 Ambulatory 05/11/2018 Office Visit Family Medicine Payton James MD [address] [place] [phone] [facility] Start: 03-30-2018 End: 03-30-2018 Ambulatory [facility] Comment on above: Arrived Start: 12-27-2017 Influenza vaccination SEQUENTI AL INFLUENZA VACCINE (#1) [facility] Start: 12-05-2017 End: 12-05-2017 Ambulatory 12/05/2017 Office Visit Orthopedic Surgery Isidro Birch MD [address] [place] [address] [phone] [facility] Start: 11-07-2017 End: 11-07-2017 Ambulatory 11/07/2017 Office Visit Orthopedic Surgery Isidro Birch MD [address] [place] [address] [phone] [facility] Start: 04-29-2017 Protein mass conc MAMMOGRAM SC REENING DISCUSSION [facility] Work Phone: Start: 04-29-2017 Screening for malign ant neoplasm of cervix [facility] Work Phone: Start: 03-25-2017 Screening mammography [facility] Start: 03-05-2017 History and physical examination, annual for health maintenance Wellness [facility] Start: 01-25-2016 Colonoscopy COLORECTAL CAN CER SCREENING DISCUSSION [facility] Start: 01-25-2016 Protein mass conc COLON CANCER SCREENING DISCUSSION [facility] Start: 12-14-2015 Screening for malign ant neoplasm of colon Fecal occult blood test (FOBT,FIT) [facility] Start: 2014 Zoster vaccine hzv l esteban for subcutaneous use ZOSTER VACCINE [facility] Start: 2004 Administration of he rpes zoster vaccine Zoster Vaccines (1 of 2) [facility] Start: 2004 Colonoscopy COLON CANCER S CREENING DISCUSSION [facility] Start: 2004 Protein mass conc COLON CANCER SCREENING DISCUSSION [facility] Work Phone: Start: 2004 Screening for malign ant neoplasm of colon [facility] Start: 2004 Zoster vaccine hzv l esteban for subcutaneous use ZOSTER (SHINGLES) VACCINE (1 of 2) [facility] Start: 1994 Fasting lipid profile LIPID SCREENIN G [facility] Work Phone: Start: 1973 Third diphtheria, tetanus and acellular pertussis (DTaP) vaccination TDAP (ADULT) [facility] Work Phone: Start: 1972 Hepatitis C antibody , confirmatory test Hepatitis C Screening [facility] Start: 1972 Tetanus vaccination TETANUS [facility] [facility] Work Phone: Start: 1970 COVID-19 Vaccine (1 of 2) COVID-19 Vaccine (1 of 2) [facility] Start: 1969 HIV screening HIV Screening [facility] Start: 10-07-1967 HIV screening HIV SCREENING DISCUSSION [facility] Work Phone: Start: 1954 Fall risk assessment Falls Risk Asse ssment [facility] Start: 1954 End: 1954 Hepatitis C antibody, confirmatory test HEPATITIS C VIRUS SCREENING [facility] Work Phone: Start: 1954 HEPATITIS C SCREENING HEPATITIS C SC REENING [facility] Start: 1954 Screening for malign ant neoplasm of cervix PAP SMEAR [facility] Bacteria identified in Urine by Culture [facility] Comprehensive metabo lic 1999 panel - Serum or Plasma [facility] Comprehensive metabo lic 1999 panel - Serum or Plasma [facility] Cotinine [Mass/volum e] in Serum or Plasma [facility] Glucose measurement estimated from glycated hemoglobin [facility] Hemoglobin [Mass/vol ume] in Blood [facility] End: 03-12-2018 MG Breast Views MAMMO SCREENING BILATERAL Routine Screening for breast cancer 1 Occurrences starting 03/12/2018 until 03/12/2018 [facility] Work Phone: Comment on above: 1 Occurrences starti ng 03/12/2018 until 03/12/2018 MG Breast Views MAMMO SCREENING BILATERAL Routine Screening for breast cancer 03/12/2018 1:05 PM EST [facility] Work Phone: Nicotine [Mass/volum e] in Serum or Plasma [facility] Patient Education Know your Meds [facility] Work Phone: End: 04-27-2020 Radiography of hip XR HIP WITH PELVIS RIGHT Imaging Routine Right hip pain 1 Occurrences starting 04/27/2020 until 04/27/2020 [facility] Comment on above: 1 Occurrences starti ng 04/27/2020 until 04/27/2020 Radiography of hip XR HIP WITH P JEFF RIGHT Imaging Routine Right hip pain 04/27/2020 9:[address] [facility] Urine culture [facility] End: 10-08-2017 XR Wrist Right 3+ Views (Standard) XR Wrist Right 3+ Views (Standard) Routine Left wrist pain Once for 1 Occurrences starting 10/08/2017 until 10/08/2017 [facility] XR Wrist Right 3+ Vi ews (Standard) XR Wrist Right 3+ Views (Standard) Routine Left wrist pain 10/08/2017 2:17 PM EDT [facility] Immunizations Immunization Date Immunization Notes Care Provider Alexia tracey 01-29-2021 COVID-19 mRNA, Comirnaty (Pfizer) DO Karen Cardoso Work Phone: [facility] 07-18-2020 COVID-19 Vaccine Pfi zer - Documentation Purposes Only Karen Cardoso Other [facility] 06-26-2020 COVID-19 Vaccine Pfi zer - Documentation Purposes Only Karen Cardoso Other [facility] 03-03-2018 influenza virus vaccine, unspecified formulation Chito Land [facility] 03-10-2017 diphtheria, tetanus toxoids and acellular pertussis vaccine, unspecified formulation Annmarie Xavier [facility] 03-10-2017 tetanus toxoid, redu jim diphtheria toxoid, and acellular pertussis vaccine, adsorbed Isid[facility] 08-26-2013 tetanus toxoid, redu jim diphtheria toxoid, and acellular pertussis vaccine, adsorbed [facility] 01-26-2010 zoster vaccine, live DO Ronak Cardoso Work Phone: [facility] Payers Date Payer Category Payer Medicare MEDICARE ANTHEM HMO OR PPO MEDICARE ANTHEM HMO OR PPO xxxxxxxxxxxx 2017-Present [id number] 2017 Medicare [id number] .[id number] 2015 Medicare [id number] 1959 Medicare [id number] 1959 Self-pay [id number] 1954 Unknown [id number] 2.16.840.1.304741.3.579.2.983 1954 Unknown [id number] 2..840.1.128941.3.579.2.903 1954 Unknown [id number] 2.16.840.1.844074.3.579.2.593 1954 Unknown [id number] 2.16.840.1.010991.3.579.2.593 1954 Unknown [id number] 2.16.840.1.552948.3.579.2.593 1954 Unknown [id number] 2.16.840.1.768457.3.579.2.125 9 1954 Unknown [id number] 2.16.840.1.331983.3.579.2.125 9 1954 Unknown [id number] 2.16.840.1.849154.3.579.2.125 9 1954 Unknown [id number] 2.16.840.1.324945.3.579.2.125 9 1954 Unknown [id number] 2.16.840.1.589296.3.579.2.125 9 1954 Unknown [id number] 2.16.840.1.040418.3.579.2.125 9 1954 Unknown [id number] 2.16.840.1.923605.3.579.2.125 9 1954 Unknown [id number] 2.16.840.1.487687.3.579.2.125 9 1954 Unknown [id number] 2.16.840.1.467643.3.579.2.125 9 Unknown [facility] [id number] Unknown [id number] 2.16.840.1.492340.3.579.2.593 Unknown [id number] 2.16.840.1.656720.3.579.2.593 Unknown [id number] 2.16.840.1.409430.3.579.2.593 Unknown [id number] 2.16.840.1.616808.3.579.2.531 Unknown [id number] 2.16.840.1.581441.3.579.2.531 Unknown [id number] 2.16.840.1.836640.3.579.2.531 Unknown [id number] 2.16.840.1.940422.3.579.2.531 Unknown [id number] 2.16.840.1.746549.3.579.2.531 Unknown [id number] 2.16.840.1.158440.3.579.2.531 Unknown [id number] 2.16.840.1.407257.3.579.2.531 Unknown [id number] 2.16.840.1.216734.3.579.2.531 Unknown [id number] 2.16.840.1.331744.3.579.2.531 Unknown [id number] 2.16.840.1.489405.3.579.2.531 Social History Date Type Detail Facility Start: 10-08-2017 End: 01-05-2024 Tobacco smoking status NHIS Never smoker [facility] Sex Assigned At Not on file [facility] Start: 03-03-2018 Alcohol Comment 2 beers a week [employer] Start: 12-05-2017 End: 04-27-2020 Tobacco use and exposure Never used [employer] Start: 12-05-2017 End: 04-27-2020 Alcohol intake Current drinker of alcohol (finding) [employer] [facility] Start: 09-25-2016 Alcohol Comment [facility] Sex Assigned At Sex Assigned At [employer] Other Start: 1955 Sex Assigned At Female [facility] NEGATED: Highlighted row [facility] Medical Equipment Procedure Code Equipment Code Equipment Origin al Text Equipment Identifier Dates Arthroplasty, hip, total, anterior approach Acetabular shell ()[id number] FDA Start: 01-05-2024 Arthroplasty, hip, total, anterior approach Orthopaedic bone screw, non-bioabsorbable, sterile ()[id number] FDA Start: 01-05-2024 Arthroplasty, hip, total, anterior approach Orthopaedic bone screw, non-bioabsorbable, sterile ()[id number] FDA Start: 01-05-2024 Arthroplasty, hip, total, anterior approach Orthopaedic bone screw, non-bioabsorbable, sterile ()[id number] FDA Start: 01-05-2024 Arthroplasty, hip, total, anterior approach Ceramic femoral head prosthesis ()[id number] FDA Start: 01-05-2024 Arthroplasty, hip, total, anterior approach Coated hip femur prosthesis, modular ()[id number] FDA Start: 01-05-2024 Arthroplasty, hip, total, anterior approach Non-constrained polyethylene acetabular liner ()[id number] FDA Start: 01-05-2024 Goals Date Patient Goal [...] present for entire encounter. Karen Cardoso D.O. [facility] Work Phone: 1(316) 239-631305-20-2024 Evaluation note* Author Karen Cardoso [facility] Authored September 15, 2023 2:26p m The above note written by __ _Lina [place]____ acting as human recorder, note dictated by Dr. Armijo .I performed the above HPI, ROS, and Examination. I formulated and dictated the treatment plan and was present for entire encounter. Karen Cardoso D.O. [facility] Work Phone: 1(907) 598-134702-29-2024 Evaluation note* Author Karen Cardoso [facility] Authored June 26, 2023 10:58am The above note written by __ _Lina [place]____ acting as human recorder, note dictated by Dr. Armijo .I performed the above HPI, ROS, and Examination. I formulated and dictated the treatment plan and was present for entire encounter. Karen Cardoso D.O. [facility] Work Phone: 1(219) 814-929802-29-2024 Evaluation note* Author Karen Cardoso [facility] Authored June 26, 2023 10:58am The above note written by __ _Lina [place]____ acting as human recorder, note dictated by Dr. Armijo .I performed the above HPI, ROS, and Examination. I formulated and dictated the treatment plan and was present for entire encounter. Karen Cardoso D.O. Author Karen Cardoso [facility] Authored September 15, 2023 2:26p m The above note written by __ _Lina [place]____ acting as human recorder, note dictated by Dr. Armijo .I performed the above HPI, ROS, and Examination. I formulated and dictated the treatment plan and was present for entire encounter. Karen Cardoso D.O. [facility] Work Phone: 1(666) 527-945701-17-2024 Evaluation note* Encounter Date Diagnosis Assessment Notes [...] oral anti-inflammatorie s and Tylenol. Recommended utilizing [id number] oral anti-inflammatorie s. Recommended adjusting their Tylenol [...] injection well. 5. Follow up as needed [employer] Other 09-14-2023 Evaluation note* Encounter Date Diagnosis Assessment Notes Treatment Notes Treatment Clinical Notes Dec, Bipolar depression (ICD-10 - F31.9) [employer] Other 08-18-2023 Evaluation note* Encounter Date Diagnosis Assessment Notes Treatment Notes Treatment Clinical Notes Nov, Bipolar depression (ICD-10 - F31.9) Nov, Hyperlipidemia (ICD-10 - E78.5) [employer] Other 08-17-2023 Evaluation note* Encounter Date Diagnosis [...] that she was seeing a lady at [facility] but has not seen her in [...] Weight loss (ICD-10 - R63.4) Nov, Other [employer] customer service (current) drug therapy (ICD-10 - Z79.899) [employer] Other 03-17-2023 Evaluation note* Encounter Date Diagnosis [...] consider looking at her hip joint further. [employer] Other 02-16-2023 Evaluation note* Encounter Date Diagnosis [...] hip She would like to see an employment service specialist for her right hip. She had [...] her white blood cell count. May, Other usp (current) drug therapy (ICD-10 - Z79.899) May, Bipolar depression (ICD-10 - F31.9) Continue with specialist as directed. May, Other I did provide h er with a lab order today to have labs drawn prior to her appointment in November (2022). If she decides to have outreach lab drawn through the [facility] she should call and we will give her an order for just an AST/ALT. We discussed how much Calcium she should be taking, I did recommend she take 3077-8163 daily. Recommend Calcium Citrate. [employer] Other 11-09-2022 Evaluation note* Encounter Date Diagnosis Assessment Notes Treatment Notes Treatment Clinical Notes Feb, Hyperlipidemia (ICD-10 - E78.5) [employer] Other 10-18-2022 Evaluation note* Encounter Date Diagnosis [...] then we would refer her to a small animal veterinarian. 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 [employer] Other 02-14-2022 NoteHISTORY: Bone density screening. COMPARISON: [...] signed by Trell Martin on 06/11/2021 1237[place] Medical SpecialistChief complaint+Reason for visit Narrative* Chief Complaint 2 MONTHS WANTS TO DI SCUSS SURGERY m16.11 z79.899 m81.0 review labs/medical clearance Hip pain Reason for Visit Primary osteoarthrit is of right hip Bipolar depression Encounter for pre-operative examination Hyperglycemia Hyperlipidemia Primary osteoarthritis of right hip Weight loss [facility] Work Phone: Chief complaint+Reason for visit Narrative* Chief Complaint 2 MONTHS WANTS TO DI SCUSS SURGERY m16.11 z34.895 m81.0 review labs/medical clearance Hip pain Preop - R JASON H&P RTHA Reason for Visit Primary osteoarthrit is of right hip Bipolar depression Encounter for pre-operative examination Hyperglycemia Hyperlipidemia Primary osteoarthritis of right hip Weight loss Primary osteoarthritis of right hip [facility] Work Phone: Chief complaint+Reason for visit Narrative* Chief Complaint 2 MONTHS WANTS TO DI SCUSS SURGERY m16.11 z11.076 m81.0 review labs/medical clearance Hip pain Preop - R JASON H&P RTHA Prolonged Reason for Visit Primary osteoarthrit is of right hip Bipolar depression Encounter for pre-operative examination Hyperglycemia Hyperlipidemia Primary osteoarthritis of right hip Weight loss Primary osteoarthritis of right hip [facility] Work Phone: Chief complaint+Reason for visit Narrative* Chief Complaint 2 MONTHS WANTS TO DI SCUSS SURGERY m16.11 z31.899 m81.0 review labs/medical clearance Hip pain Preop - R JASON H&P RTHA Prolonged Hip pain Hip pain Reason for Visit Primary osteoarthrit is of right hip Bipolar depression Encounter for pre-operative examination Hyperglycemia Hyperlipidemia Primary osteoarthritis of right hip Weight loss Primary osteoarthritis of right hip [facility] Work Phone: Chief complaint+Reason for visit Narrative* Chief Complaint 2 MONTHS WANTS TO DI SCUSS SURGERY m16.11 z14.89 m81.0 review labs/medical clearance Hip pain Preop [...] replacement surgery Status post right hip replacement [facility] Work Phone: Chief complaint+Reason for visit [...] replacement surgery Status post right hip replacement [facility] Work Phone: Evaluation noteNo [facility]St[facility] [employer] Other Evaluation noteNo assessment information available [facility] Work Phone: Evaluation note* Diagnosis Onset Date Resolution Status Greater trochanteric bursitis of right hip acute Primary osteoarthritis of right hip acute [facility] Work Phone: History general Narrative - [...] Dr. Wu 02/23/2020 Hospitalization History see above [employer] Other History general Narrative - Reported* Type [...] repeat in 202902/23/2020 Hospitalization History see above [employer] Other Assessments Diagnosis Left wrist pain Pain [...] findings. Additions if any: Chito Land MD, [facility] Services Rep - [facility] * Rachna Hunter [...] from the last injection. Chito Land MD, [facility] Sports Medicine Services Rep - [facility] * Corinne Shaffer [...] Additions if any: Chito Land MD, [facility] and Sports Medicine Services Rep - [facility] * Corinne Shaffer - [...] MAMMO SCREENING BILATERAL Payton James MD [address] [place] [address] Reason appt 07/12/22 at 10am pt needs consult to discuss right hip pain Diagnosis 1 Hip pain (M25.559) Referral Organization [facility] Referring Provider First Name Karen Referring Provider Last Name Walker Referring Provider Specialty Family Prac ernie Referred Organization 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) Referral Organization [facility] Referring Provider First Name Karen Referring Provider Last Name Walker Referring Provider Specialty Family Prac ernie Referred Organization [facility] Referred Address [address],[address] Referred Provider Specialty Neurology Referral Priority Routine [...] 1 Decreased hearing (H 91.90) Referral Organization [facility] Karinain evelina Sheila Referring Provider First Name Karen Referring Provider Last Name Walker Referring Provider Specialty Family Sarah klein Referred Organization [facility] Ref[place] Address ,[place], [place],[address] Referred Provider Specialty Audiologists Referral Priority Routine [...] section and content) DATE CREATED AUTHOR 10/20/2017 [facility] DATE CREATED AUTHOR AUTHOR'S ORGANIZ ATION 10/24/2017 [facility] DATE CREATED AUTHOR AUTHOR'S ORGANIZ ATION 11/12/2017 [facility] DATE CREATED AUTHOR AUTHOR'S ORGANIZ ATION 11/12/2017 [facility] DATE CREATED AUTHOR AUTHOR'S ORGANIZ ATION 12/20/2017 [facility] DATE CREATED AUTHOR AUTHOR'S ORGANIZ ATION 04/06/2018 [facility] DATE CREATED AUTHOR AUTHOR'S ORGANIZ ATION 07/30/2018 [facility] DATE CREATED AUTHOR AUTHOR'S ORGANIZ ATION 02/10/2021 [facility] DATE CREATED AUTHOR AUTHOR'S ORGANIZ ATION 06/11/2021 [facility] dical Specialist DATE CREATED AUTHOR AUTHOR'S ORGANIZ ATION 08/28/2022 [facility] DATE CREATED AUTHOR AUTHOR'S ORGANIZ ATION 09/10/2023 [facility] d[facility] Specialists EPIC DATE CREATED AUTHOR AUTHOR'S ORGANIZ ATION 04/15/2024 [facility] Reason for Visit (unrecogniz ed section and content) Reason Comments Medication Management Reason Comments Medication Refill Reason Comments Prescription Clarification Status Reason Specialty Diagnoses / Procedures Referre d By Contact Referred To Contact Closed Diagnoses Screening for breast cancer Procedures MAMMO SCREENING BILATERAL Payton James MD [address] [place] [id number] Reason Comments Depression Antonino feels pretty g [...] BE BASED ON THE PRIMARY CLINICAL RECORDS. [employer] provides no warranty or guarantee of the accuracy or completeness of information in this document.
== END 2024-04-30 08:47 | disposition home or self-care (01) ==
LOC: US 08:46
PROVIDERS: PCP Family Medicine; Visit Provider Family Medicine
DX: E04.1 Nontoxic single thyroid nodule (principal)
CPT/HCPCS: 76536

== ENCOUNTER 2024-06-11 08:33 | Outpatient (OUT) | payer MEDICARE, SELFPAY ==
--- OUTSIDE RECORDS SUMMARY | 2024-06-11 08:54 | XMS_ITS | CCD ---
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 Name Role Phone Desire Britt Unavailable DESIRE BRITT Unavailable Unavailab CHIKI Bagley Unavailable Autumn vailable CHIKI BRITT Unavailable Autumn vailable DESIRE BRITT Unavailable Unavailab le HAY, AMI Unavailable Unavailable HAY, AMI Unavailable Unavailable UNKNOWN, PROVIDER Unavailable Unavailable DESIRE BRITT Unavailable Unavailable QUETA, ISIDRO DIAZ Unavailable Unavailable QUETA, ISIDRO DIAZ Unavailable Unavailable DESIRE BRITT Unavailable Unavailab le QUETA, ISIDRO DIAZ Unavailable Unavailable RICKY SORIA Unavailable Unavailable QUETA, ISIDRO BUTCHERY Unavailable Unavailable DESIRE BRITT Unavailable Unavailab le DESIRE BRITT Unavailable Unavailab le Queta, J Kristopher Unavailable Unavailable Queta, J Kristopher Unavailable Unavailable Queta, J Kristopher Unavailable Unavailable Queta, J Kristopher Unavailable Unavailable Kovolyan, Payton K Unavailable [phone] NON-PATIENT FAIRS, BUCYRUS Unavailable Unava ilable NON-PATIENT [...] Provid er KAREN CARDOSO Primary Care Unavailable SHANICEO, JAQUELINE Attending Unavailable Walker, Karen Unavailable Walker, DO Jones Primary Care Provider [phone] MD Finn Ortez II Attending Provider Finn Ortez II Unavailable [phone] REQUEST, DR NONE LISTED Consulting Unavaila ble GIRVIN, DR JONES Primary Care Unavailable GIRVIN, [...] Consulting Unavailable CARLOTA ., ROWENA Attending Unavailable KLIPPMORIS, KAREN Consulting Unavailable ITKIN, DONYA Consulting Unavailable FRIEDMAN, ALMA Consulting Unavailable REQUEST, DR NONE LISTED Admitting Unavaila ble REQUEST, NONE LISTED Consulting Unavaila ble REQUEST, NONE LISTED Attending Unavaila ble NUPURVIN, DR JONES Primary Care Unavailable REQUEST, NONE LISTED Admitting Unavaila ble REQUEST, NONE LISTED Consulting Unavaila ble REQUEST, NONE LISTED Attending Unavaila ble WALKER, DR JONES Primary Care Unavailable Walker, DO Jones Primary Care Provider MD Floyd Hampton Attending Provider MD Finn Ortez II Attending Provider DO Karen Cardoso Primary Care Provider MD Floyd Hampton Attending Provider DO Karen Cardoso Attending Provider [phone] DO Karen Cardoso Primary Care Provider MD Floyd Hampton Attending Provider MD Finn Ortez II Attending Provider MD Floyd Hampton Attending Provider DO Karen Cardoso Primary Care Provider MD Floyd Hampton Attending Provider DO Karen Cardoso Primary Care Provider MD Finn Ortez II Attending Provider MD Floyd Hampton Attending Provider Karen Cardoso MD Primary Care Provider Pérez II, Finn Clifford Admitting Unavailabl e Girvin, [place] Primary Care Unavailable Irvine II, Finn Clifford Attending Unavailabl e Irvine II, Finn M Admitting Unavailabl e Girvin, [place] Primary Care Unavailable Irvine II, Finn Clifford Attending Unavailabl e Irvine II, Finn Clifford Admitting Unavailabl e Girvin, [place] Primary Care Unavailable Irvine II, Finn Clifford Attending Unavailabl e Irvine II, Finn M Admitting Unavailabl e Girvin, [place] Primary Care Unavailable Pérez II, Finn Clifford Attending Unavailabl e Irvine II, Finn Clifford Admitting Unavailabl e Girvin, [place] Primary Care Unavailable Pérez II, Finn Clifford Attending Unavailabl e Irvine II, Finn M Admitting Unavailabl e Girvin, [place] Primary Care Unavailable Irvine II, Finn Clifford Attending Unavailabl e Pérez II, Finn Clifford Attending Unavailabl e Girvin, [place] Primary Care Unavailable Irvine II, Finn M Admitting Unavailabl e Pérez II, Finn M Admitting Unavailabl e Girvin, [place] Primary Care Unavailable Irvine II, Finn Clifford Attending Unavailabl e Girvin, [place] Primary Care Unavailable [facility] Karen Attending Unavailable Walker Karen Admitting Unavailable Floyd Hampton Admitting Unavailab Floyd Solis Attending Unavailab le Walker, [place] Primary Care Unavailable SHERYL COOPER Attending Unavailable KAREN CARDOSO Referring Unavailable MILAGROS LAI Attending Unavailable TERRANCE WOODARD Attending Unavailable NICOLE JENSEN Attending Unavailable TERRANCE WOODARD Attending Unavailable NICOLE JENSEN Referring Unavailable NICOLE JENSEN Referring Unavailable TERRANCE WOODARD Attending Unavailable ANGELA LINDA Attending Unavailable SHERYL COOPER Attending Unavailable Allergies Allergy Classification Reported Allergen(s) Allergy Type Date of Onset Reaction(s) Facility (20 sources) acetaminophen / oxyCODONE; Translations: [OXYCODONE-ACETAM INOPHEN] Drug Allergy 5 Itching [facility] (20 sources) Acetaminophen / oxyCODONE; Translations: [Percocet] Drug Allergy 3 [facility] (19 sources) DULoxetine Drug Allergy headaches [employer] [facility] [employer] Other (19 sources) FLUoxetine Drug Allergy doesn't work [facility] Other (13 sources) Acetaminophen; Translations: [acetaminophen] Drug Allergy 4 [facility] (20 sources) DULoxetine; Translations: [duloxetine] Drug Allergy 4 [facility] (20 sources) FLUoxetine; Translations: [fluoxetine] Drug Allergy 4 doesn't work [facility] (18 sources) oxyCODONE; Translations: [oxycodone] Drug Allergy 4 [facility] Medications Current Medications Medication Drug Class(es) [...] reconcile until DOS: 01/05/2024 MED TO BED acetaminophen 325 mg / HYDROcodone bitartrate 5 mg oral tablet (4 sources) Opioid Agonist Start: 08-27-2022 take 1 tablet by mouth every six hours as needed HYDROcodone-acetam inophen ([place]) 5-325 MG tablet Take 1 tablet by mouth every 6 (six) hours if needed 08/27/2022 Active ascorbic acid 500 mg chewable tablet (20 sources) Vitamin C ascorbic acid (Vitamin C) 500 MG tablet Take 500 mg by mouth Active take 1 tablet by mouth every fri ascorbic acid 500 MG Tab take 500 [...] And Nails (Biotin)) 10,000 mcg tablet,chewable Active 83667 MCG PO Daily December 22, 2023 12:00am [...] Discontinued Calcium (20 sources) Phosphate Binder, Calcium CALCIU M PO Take by mouth Daily Active Calcium Active Calcium 150 MG T ab [...] 15, 2023 12:00am September 26, 2023 10:48am cyclobenzaprine hydrochloride 10 mg oral tablet (4 sources) Muscle Relaxant Start: 02-25-2023 cyclobenzaprine (Flexeril) 10 MG tablet Take 5-10 mg by mouth at bedtime 02/25/2023 Active 24 hr desvenlafaxine succinate 25 mg extended release oral tablet (11 sources) Serotonin and Norepinephrine Reuptake Inhibitor Start: 11-19-2023 take 25 mg by mouth once daily Desvenlafaxine Succinate Active 25 MG PO Daily November 19, 2023 12:00am dexamethasone 1 mg/ml / tobramycin 3 mg/ml ophthalmic suspension (5 sources) Aminoglycoside Antibacterial, Corticosteroid Start: 07-27-2018 End: 08-03-2018 tobramycin-dexametha sone 0.3-0.1 % Suspension 2 drops to bilateral ears tid 1 Bottle 0 07/27/2018 Active estradiol 0.01 mg vaginal tablet (8 sources) Estrogen Start: 06-09-2017 YUVAFEM 10 mcg Tab Insert 1 (one) tablet (10 mcg total) into the vagina once a week. 12 tablet 0 06/09/2017 Active estrogens, conjugated (assisted) 0.625 mg/ml vaginal cream (16 sources) Estrogen [...] sources) Mood Stabilizer, Anti-epileptic Agent Start: 06-13-2023 End: 12-22-2023 take 1 tablet by mouth once daily lamoTRIgine (LaMICtal) 100 MG tablet Take 100 mg by mouth Daily 06/13/2023 Active Start: 05-28-2023 End: 09-15-2023 take 1 tablet by mouth at bedtime lamoTRIgine (LaMICtal) 25 MG tablet Take 25 mg by mouth at bedtime 05/28/2023 Active Start: 03-29-2020 take 1 tablet by [facility] once daily lamoTRIgine 100 MG tablet Take 100 mg by mouth daily. 0 03/29/2020 Active LORazepam 0.5 mg oral tablet (4 sources) Benzodiazepine Start: 03-04-2023 take 1 tablet by mouth every twenty-four hours as needed for anxiety LORazepam (Ativan) 0.5 MG tablet Take 0.5 mg by mouth Daily as needed for anxiety 03/04/2023 Active meloxicam 15 mg oral tablet (20 sources) Nonsteroidal Anti-inflammatory Drug Start: 06-13-2023 End: 12-12-2023 take 1 tablet by mouth once daily meloxicam (Mobic) 15 MG tablet Take 15 mg by mouth Daily 06/13/2023 Active metroNIDAZOLE 7.5 mg/ml topical lotion (4 sources) Nitroimidazole Antimicrobial Start: 11-27-2021 metroNIDAZOLE (MetroLotion) 0.75 % lotion lotion Apply 1 application topically 1 (one) time each day at the same time 11/27/2021 Active minocycline 100 mg oral capsule (4 sources) Tetracycline-class Drug Start: 02-05-2022 take 1 capsule by mouth every twelve hours minocycline 100 MG capsule Take 1 capsule by mouth every 12 (twelve) hours 02/05/2022 Active MULTIPLE VITAMIN PO (16 sources) MULTIPLE VITAMIN PO take by mouth.. 0 Active MULTIPLE VITAMIN PO take by mouth.. Active Multiple Vitamins-Minerals (Oncovite) tablet (4 sources) take 1 tablet by mouth in the morning Multiple Vitamins-Minerals (Oncovite) tablet Take 1 tablet by mouth in the morning. Active Multivitamin preparation (20 sources) Start: 06-26-2023 [...] AT 6PM Start: 06-13-2023 End: 01-02-2024 take 1 tablet by mouth at bedtime simvastatin (Zocor) 20 MG tablet Take 20 mg by mouth at bedtime 06/13/2023 Active Start: 09-08-2016 End: 03-30-2018 take 1 tablet [...] Take 1 tablet by mouth daily. Active tiZANidine 4 mg oral tablet (4 sources) Central alpha-2 Adrenergic Agonist Start: 3 take 1 tablet by mouth at bedtime tiZANidine (Zanaflex) 4 MG tablet Take 2-4 mg by mouth at bedtime 01/28/2023 Active traMADol hydrochloride 50 mg oral tablet (7 sources) Opioid Agonist Start: 4 take 50 [...] Take 2 tablets by mouth daily. Lot [id number], Exp 02/14 28 tablet 0 03/30/2018 05/11/2018 [...] Take 1 tablet by mouth daily. Lot [id number], exp 12/15 14 tablet 03/03/2018 03/26/2018 Discontinued [...] Clavulanate Discontinued 1 TAB PO Twice daily 20 September 26, 2023 11:15am November 19, 2023 8:37am [...] mg docusate sodium 50 mg / sennosides, assisted 8.6 mg oral tablet (7 sources) Start: 12-25-2023 End: 01-21-2024 take 2 tablets by mouth once daily Sennosides-Docusat e Sodium (Senokot-S) 8.6-50 mg tablet Discontinued 2 TAB PO daily 60 December 25, 2023 12:00am January 21, 2024 9:29am do not reconcile until DOS: 01/05/2024 MED TO BED 10 ml lidocaine hydrochloride 10 mg/ml injection (2 sources) Antiarrhythmic, Amide Local Anesthetic Start: 05-02-2020 End: 05-02-2020 lidocaine (XYLOCAINE) 10 mg/mL injection 4 mL ondansetron 4 mg oral tablet (20 sources) [...] times daily. 05/11/2018 Discontinued polyethylene glycol 3350 65610 mg powder for oral solution (7 sources) [...] Start: 02-01-2020 take 1 capsule by mo [facility] once daily venlafaxine 37.5 MG Cap SR 24HR capsule XR Take 37.5 mg by mouth daily. 0 02/01/2020 Active take 1 tablet by anam th once daily venlafaxine (Effexor) 37.5 MG tablet Take 37.5 mg by mouth 1 (one) time each day at the same time Active Problems Active Problems Problem Classification Problem [...] UNS STAIRS STEPS INIT] Onset: 08-28-2022 Episodic Genitourinary symptoms and ill-defined conditions (4 sources) Urge incontinence of urine; Translations: [Urge incontinence] Onset: 06-23-2023 06-23-2023 Chronic Menopausal disorders (4 sources) Atrophy of vagina; Translations: [Postmenopausal atrophic vaginitis] Onset: 06-23-2023 06-23-2023 Chronic Mood disorders (20 sources) Depressive disorder; Translations: [Recurrent major depression in partial remission] Onset: 10-05-2015 Resolved: 12-06-2021 10-05-2015 Chronic Mood disorders (2 sources) Major depressive disorder, single episode, unspecified; Translations: [Major depressive disorder, single episode, unspecified] Onset: 10-05-2015 Osteoarthritis (20 sources) Osteoarthritis of right hip joint; Translations: [Unilateral primary osteoarthritis, right hip] Onset: 06-23-2023 Chronic Osteoarthritis (3 sources) Osteoarthritis of right [...] current use of drug therapy; Translations: [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] 11-19-2023 Episodic Other connective tissue disease (7 sources) Presence of right artificial hip joint; Translations: [Hip joint replacement] Onset: 01-21-2024 01-21-2024 Chronic Other connective tissue disease (5 sources) Trochanteric bursitis, right hip; Translations: [Enthesopathy of hip region] Episodic Other ear and sense organ disorders (2 sources) Decreased hearing ; Translations: [Unspecified hearing loss, unspecified ear] Chronic Other ear and sense organ disorders (3 sources) Sensorineural hearing loss, bilateral; Translations: [Sensorineural hearing loss, bilateral] 05-04-2024 Chronic Other gastrointestinal disorders (19 sources) Irritable bowel syndrome; Translations: [Irritable bowel syndrome without diarrhea] Chronic Other inflammatory condition of skin (4 sources) Rosacea; Translations: [Rosacea, unspecified] Onset: 06-23-2023 06-23-2023 Chronic Other injuries and conditions due to [...] (1 source) Nonscarring hair loss, unspecified Episodic Prolapse of female genital organs (4 sources) Cystocele; Translations: [Cystocele, unspecified] Onset: 06-23-2023 06-23-2023 Chronic Residual codes; unclassified (6 sources) Amnesia; Translations: [...] Other Problems Problem Classification Problem Date Documented Date Episodic/Chronic Abdominal pain (20 sources) Pain in female pelvis; Translations: [Pelvic and perineal pain] Onset: 10-23-2016 Resolved: 06-23-2023 10-23-2016 Episodic Fracture of upper limb (14 sources) Unspecified fracture of the lower end of right radius, initial encounter for closed fracture; Translations: [Closed fracture of distal end of radius] Onset: 10-08-2017 Resolved: 06-23-2023 10-09-2017 Episodic Genitourinary symptoms and ill-defined conditions (20 sources) Increased frequency of urination; Translations: [Frequency of micturition] Onset: 09-15-2023 09-15-2023 Episodic Medical examination/evaluatio n (1 source) Laboratory examination, unspecified; Translations: [Laboratory examination, unspecified] Onset: 12-13-2014 Episodic Other aftercare (9 sources) Other halfway (current) drug therapy; Translations: [OTH [facility] CURRENT DRUG THERAPY] Onset: 02-07-2022 Episodic Other connective tissue disease (15 sources) Presence of unspecified artificial hip joint; Translations: [History of repair of hip joint] Onset: 09-25-2016 Resolved: 06-23-2023 09-25-2016 Chronic Other connective tissue disease (20 sources) Trochanteric bursitis; Translations: [Trochanteric bursitis, right hip] Onset: 06-23-2023 06-12-2023 Episodic Other ear and sense organ disorders (1 source) Acute otitis externa; Translations: [Acute swimmer's ear of both sides] Episodic Other female genital disorders (4 sources) Vaginal dryness; Translations: [Other specified noninflammatory disorders of vagina] Onset: 06-23-2023 Resolved: 06-23-2023 06-23-2023 Episodic Other non-traumatic joint disorders (1 source) Pain in right shoulder; Translations: [Pain in right shoulder] Onset: 12-25-2023 Episodic Residual codes; unclassified (4 sources) History of hysterectomy for benign disease; Translations: [Acquired absence of both cervix and uterus] Onset: 06-23-2023 Resolved: 06-23-2023 06-23-2023 Episodic Unclassified (1 source) Left wrist pain [...] 04-07-2024 XR hip RT min 2V(w/wo pelvis)* [facility] [place] [facility] [address] [place] [address] XRay Report Signed Patient: Antonino Torres MR#: [id number] : 1955 Acct:[id number] Age/Sex: 68 / F ADM Date: 04/07/24 Loc: [facility] Room: Type: REG CLI Attending Dr: Finn Ortez II, MD [...] Gary Ley M.D.04/07/2024 2:14 PM Dictation Location: [place] [address] Transcribed By: [facility] 04/07/24 1414 Dictated By: Gary Ley DO 04/07/24 1413 Signed By: 04/07/24 1414 Normal [facility] XR hip RT min 2V(w/wo pelvis )*on 02-24-2024 XR hip RT min 2V(w/wo pelvis)* [facility] [place] [facility] [address] [place] [address] XRay Report Signed Patient: Antonino Torres MR#: [id number] : 1955 Acct:[id number] Age/Sex: 68 / F ADM Date: 02/24/24 Loc: [facility] [place] Room: Type: REG CLI Attending Dr: Finn Ortez II, MD [...] Silvina Rolon M.D.02/24/2024 1:05 PM Dictation Location: [place] [address] Transcribed By: [facility] 02/24/24 1305 Dictated By: Silvina Rolon MD 02/24/24 1303 Signed By: 02/24/24 1305 Normal [facility] Laboratory - Chemistry and C hemistry - challengeon 02-05-2024 Bilirubin Ql (U) Negative NEGATIVE [facility] Glucose (U) [Mass/Vol] Negative NEGATIVE [facility] Ketones Ql (U) Negative NEGATIVE [facility] pH (U) 6.0 [pH] 5.0-9.0 [facility] Specific gravity (U) [Rel density] <=1.005 Abnormal 1.005-1.02 5 [facility] Urobilinogen Qn (U) 0.2 {Sajan'U}/dL 0.2-1.0 [facility] Laboratory - Specimen inform ationon 02-05-2024 Appearance (U) CLEAR CLEAR [facility] Color (U) LT. YELLOW YELLOW [facility] Laboratory - Urinalysison Leukocyte esterase Test strip Ql (U) Negative NEGATIVE [facility] Mucus Ql (Urine sed) NONE SEEN NONE SEEN [facility] Nitrite Ql (U) Negative NEGATIVE [facility] Protein Ql (U) Negative NEG/TRACE [facility] No Panel Informationon 02-04 Miscellaneous Test Comment See comment [facility] Comment on above: Specimen Source: UCC - Urine,Clean Catch - Urine CC - 200.100 Urine Bacteria TRACE #/HPF Abnormal NONE SEEN [facility] Urine Culture Reflexed NO [facility] Urine Culture Result 1 \R\ Urine Culture, Routine [facility] Urine Occult Blood TRACE-I NEGATIVE [facility] Urine Other Casts NONE SEEN #/LPF NONE SEEN [facility] Urine Other Crystals None Seen #/HPF None Seen [facility] Urine RBC NONE SEEN #/HPF 0-2 [facility] Urine Squamous Epithelial Cells RARE #/LPF NONE/RARE [facility] Urine WBC NONE SEEN #/HPF NONE SEEN [facility] XR hip RT min 2V(w/wo pelvis )*on 01-21-2024 XR hip RT min 2V(w/wo pelvis)* [facility] [place] [facility] [address] [place] [address] [address] XRay Report Signed Patient: Antonino Torres MR#: [id number] : 1955 Acct:[id number] Age/Sex: 68 / F ADM Date: 01/21/24 Loc: [facility] Room: Type: [facility] Attending Dr: Finn Ortez II, MD [...] Trinidad Jr., D.O.01/21/2024 12:36 PM Dictation Location: [place] [address] Transcribed By: [facility] 01/21/24 1236 Dictated By: Isidro Trinidad Jr, 01/21/24 1234 Signed By: 01/21/24 1236 Normal [facility] ABO/Rh Retypeon 01-05-2024 ABO/RH Recheck Result Positive Normal [facility] Comment on above: Result Comment: PERF ORMED BY: [facility] [place] [address] PATHOLOGIST CIRCLE SHEAR OPERATOR KOMAL Babb 01-05-2024 L Specimen: [id number] Received: 01/06/24 Status: SOUT Req Num: [id number] Spec Type: Surgical Subm Dr: Finn Ortez MD Tissues: A Femoral Head - Other than Fracture (R HIP) Procedures: HE/2, Gross/Micro L3, Decalcification Age/ Patient Sex Location Account Attending Physician Antonino Torres 68/F [place] [id number] Finn Ortez MD SPEC NUM: [id number] RECD: 01/06/24 STATUS: MELISSA CONDE NUM: [id number] JASKARAN: 01/05/[address]: Finn Ortez MD ENTERED: 01/06/[address] [facility] [address]: SPEC TYPE: Surgical DEPT: S ENTERED BY: [id number] RECV BY: [id number] ORDERED: HE/2, Gross/Micro L3, Decalcification ORDERED: HE/2, [...] greatest dimension. Moderate osteophytic lipping grossly identified. Hydrochloric Area Supervisor sections are as follows: A1 eburnation, (submitted in decal before routine processing) A2 osteophytic lipping and soft tissue, (submitted in decal before routine processing) CPT Codes 56155 Specimen: [id number] Received: 01/06/24 Status: MELISSA Iveyheather Num: [id number] Spec Type: Surgical Subm Dr: Finn Ortez MD Tissues: A Femoral Head - Other than Fracture (R HIP) Procedures: HE/Bhavani, Gross/Micro L3, Decalcification Patient: Antonino Torres [id number] (Continued) Signed (signature on file) Mary Mccarthy MD 01/15/24 [address] [place] [facility] XR hip RT 1Von 01-05-2024 XR hip RT 1V [facility] Main [address] [address] XRay Report Signed Patient: Antonino Torres MR#: [id number] : 1955 Acct:[id number] Age/Sex: 68 / F ADM Date: 01/05/24 Loc: [place] Room: Type: [facility] Attending Dr: Finn Ortez II, [...] Justen Jenkins M.D.01/05/2024 11:48 AM Dictation Location: [place] [address] Transcribed By: [facility] 01/05/24 1148 Dictated By: Justen Jenkins II, MD 01/05/24 1147 Signed By: 01/05/24 1148 Normal [facility] XR low pelvis w/RT x-table h ipon 01-05-2024 XR low pelvis w/RT x-table hip [facility] Main [address] [address] XRay Report Signed Patient: Antonino Torres MR#: [id number] : 1955 Acct:[id number] Age/Sex: 68 / F ADM Date: 01/05/24 Loc: [place] Room: Type: [facility] Attending Dr: Finn Ortez II, MD [...] Gary Ley M.D.01/05/2024 4:38 PM Dictation Location: [place] [address] Transcribed By: [facility] 01/05/24 1638 Dictated By: Gary Ley DO 01/05/24 1637 Signed By: 01/05/24 1638 Normal [facility] Automated basophil %Ordered By: Finn Ortez on 12-22-2023 Basophils/100 WBC (Bld) 0.2 % Normal . [facility] Comment on above: Performed By: #### U A, CUU #### [facility] [address] [place] [address] Automated basophil countOrde red By: Finn Ortez on 12-22-2023 Basophils (Bld) [#/Vol] 0.0 10*3/uL Normal 0.0-0.2 [facility] Comment on above: Result Comment: PERF ORMED BY: [place] [address] PATHOLOGIST CIRCLE SHEAR OPERATOR KOMAL COFFMAN M.D. Performed By: #### U A, CUU #### [facility] [address] [place] [address] Automated blood monocyte cou ntOrdered By: Finn Ortez on 12-22-2023 Monocytes (Bld) [#/Vol] 0.5 10*3/uL Normal 0.0-0.8 [facility] Comment on above: Performed By: #### U A, CUU #### [facility] [address] [place] [address] Automated eosinophil %Ordere d By: Finn Ortez on 12-22-2023 Eosinophils/100 WBC (Bld) 2.0 % Normal . [facility] Comment on above: Performed By: #### U A, CUU #### [address] Automated eosinophil countOr dered By: Finn Ortez on 12-22-2023 Eosinophils (Bld) [#/Vol] 0.1 10*3/uL Normal 0.0-0.45 [facility] Comment on above: Performed By: #### U A, CUU #### [address] Automated monocyte %Ordered By: Finn Ortez on 12-22-2023 Monocytes/100 WBC (Bld) 7.0 % Normal . [facility] Comment on above: Performed By: #### U A, CUU #### [address] Automated neutrophil %Ordere d By: Finn Ortez on 12-22-2023 Neutrophils/100 WBC (Bld) 62.4 % Normal . [facility] Comment on above: Performed By: #### U A, CUU #### [address] Complete Blood Count Auto Di ffon 12-22-2023 Mean Corpuscular HGB Conc 33.6 g/dL Normal 32.0-35.0 [facility] Comment on above: Performed By: #### U A, CUU #### [address] NRBC% 0.1 /100{WBC} Normal 0-0.5 [facility] Comment on above: Performed By: #### U A, CUU #### [address] Erythrocyte distribution wid th [Ratio] by Automated countOrdered By: Finn Ortez on 12-22-2023 Erythrocyte distribution width (RBC) [Ratio] 14.2 % Normal 11.9-15.3 [facility] Comment on above: Performed By: #### U A, CUU #### [address] Erythrocytes [#/volume] in B lood by Automated countOrdered By: Finn Ortez on 12-22-2023 RBC (Bld) [#/Vol] 4.41 10*6/uL Normal 3.60-5.00 [facility] Comment on above: Performed By: #### U A, CUU #### [place] [address] [place] Fructosamineon 12-22-2023 Fructosamine 216 umol/L Normal 0-285 [facility] Comment on above: Result Comment: Publ ished reference interval for apparently healthy subjects between age 20 and 60 is 205 - 285 umol/L and in a poorly controlled diabetic population is 228 - 563 umol/L with a mean of 396 umol/L. Performed at: [place] [id number] Motor Scooter Repairer: Chang Quinteros PhD, Phone: [phone] PERFORMED BY: [place] [address] PATHOLOGIST CIRCLE SHEAR OPERATOR KOMAL COFFMAN M.D. Performed By: #### U A, CUU #### [address] Fructosamine [Moles/volume] in Serum or PlasmaOrdered By: Finn Ortez on 12-22-2023 Fructosamine [Moles/Vol] 216 umol/L 0-285 [facility] Comment on above: Published reference interval for apparently healthysubjects between age 20 and 60 is 205 - 285 umol/L and in apoorly controlled diabetic population is 228 - 563 umol/Lwith a mean of 396 umol/L.Performed at: [facility] [address] [id number] Director: Chang Quinteros PhD, Phone: [phone] Hematocrit [Volume Fraction] of Blood by Automated countOrdered By: Finn Ortez on 12-22-2023 Hematocrit (Bld) [Volume fraction] 38.6 % Normal 34.0-46.4 [facility] Comment on above: Performed By: #### U A, CUU #### [address] [address] [place] Hemoglobin [Mass/volume] in BloodOrdered By: Finn Ortez on 12-22-2023 Hemoglobin (Bld) [Mass/Vol] 13.0 g/dL Normal 11.8-15.4 [facility] Comment on above: Performed By: #### U A, CUU #### [facility] [address] [place] [address] Leukocytes [#/volume] correc main for nucleated erythrocytes in Blood by Automated counOrdered By: Finn Ortez on 12-22-2023 WBC corrected for nucl RBC Auto (Bld) [#/Vol] 6.8 10*3/uL 3.8-11.6 [facility] Leukocytes [#/volume] in Blo od by Automated countOrdered By: Finn Ortez on 12-22-2023 WBC (Bld) [#/Vol] 6.8 10*3/uL Normal 3.8-11.6 [facility] Comment on above: Performed By: #### U A, CUU #### [facility] [address] [place] [address] [place] Lymphocytes [#/volume] in Bl ood by Automated countOrdered By: Finn Ortez on 12-22-2023 Lymphocytes (Bld) [#/Vol] 1.9 10*3/uL Normal 1.00-4.8 [facility] Comment on above: Performed By: #### U A, CUU #### [facility] [address] [place] [address] [place] Lymphocytes/100 leukocytes i n Blood by Automated countOrdered By: Finn Ortez on 12-22-2023 Lymphocytes/100 WBC (Bld) 28.4 % Normal . [facility] Comment on above: Performed By: #### U A, CUU #### [place] [address] [place] MCH [Entitic mass] by Automa main countOrdered By: Finn Ortez on 12-22-2023 MCH (RBC) [Entitic mass] 29.4 pg Normal 24.7-34.3 [facility] Comment on above: Performed By: #### U A, CUU #### [facility] [address] [place] [address] MCHC Auto (RBC) [Mass/Vol]Or dered By: Finn Ortez on 12-22-2023 MCHC (RBC) [Mass/Vol] 33.6 g/dL 32.0-35.0 [facility] MCV [Entitic volume] by Auto mated countOrdered By: Finn Ortez on 12-22-2023 MCV (RBC) [Entitic vol] 87.4 fL Normal 80-100 [facility] Comment on above: Performed By: #### U A, CUU #### [address] Neutrophils [#/volume] in Bl ood by Automated countOrdered By: Finn Ortez on 12-22-2023 Neutrophils (Bld) [#/Vol] 4.3 10*3/uL Normal 1.8-7.7 [facility] Comment on above: Performed By: #### U A, CUU #### [address] Nucleated erythrocytes [Pres ence] in Blood by Automated countOrdered By: Finn Ortez on 12-22-2023 Nucleated RBC Auto Ql (Bld) 0.1 /100{WBC} 0-0.5 [facility] PST Type and Screenon 2023 ABO and Rh group Nom (Bld) Blood group O Rh(D) positive Normal [facility] Comment on above: Order Comment: Date of Surgery: [id number] Result Comment: PERF ORMED BY: [place] [address] PATHOLOGIST CIRCLE SHEAR OPERATOR KOMAL COFFMAN M.D. Platelet mean volume [Entiti c volume] in Blood by Automated countOrdered By: Finn Ortez on 12-22-2023 Platelet mean volume (Bld) [Entitic vol] 7.4 fL Normal 6.3-10.7 [facility] Comment on above: Performed By: #### U A, CUU #### [address] Platelets [#/volume] in Bloo d by Automated countOrdered By: Finn Ortez on 12-22-2023 Platelets (Bld) [#/Vol] 306 10*3/uL Normal 150-450 [facility] Comment on above: Performed By: #### U GERMAIN Antoine #### [facility] [address] [id number] [facility] Basophils Auto (Bld) [#/Vol] on 12-19-2023 Basophils (Bld) [#/Vol] 0.1 10 3/uL 0.0-0.1 [facility] Basophils/100 WBC Auto (Bld) on 12-19-2023 Basophils/100 WBC (Bld) 0.4 % 0.2-2.0 [facility] Eosinophils/100 WBC Auto (Bl d)on 12-19-2023 Eosinophils/100 WBC (Bld) 1.2 % 0.9-7.0 [facility] Erythrocyte distribution wid th Auto (RBC) [Ratio]on 12-19-2023 Erythrocyte distribution width (RBC) [Ratio] 13.7 % 11.0-15.0 [facility] Estimated glomerular filtrat ion rate (GFR) non- Americanon 12-19-2023 GFR/1.73 sq M.predicted among non-blacks MDRD (S/P/Bld) [Vol rate/Area] mL/min/{1.73_m2} >=60 [facility] Globulin Calc (S) [Mass/Vol] on 12-19-2023 Globulin (S) [Mass/Vol] 2.9 g/dL [facility] Hematocrit Auto (Bld) [Volum e fraction]on 12-19-2023 Hematocrit (Bld) [Volume fraction] 40.6 % 36.0-48.0 [facility] Hemoglobin [Mass/volume] in Bloodon 12-19-2023 Hemoglobin (Bld) [Mass/Vol] 13.3 g/dL 12.0-16.0 [facility] INR in Platelet poor plasma by Coagulation assayon 12-19-2023 INR Coag (PPP) [Relative time] 0.95 {INR} [facility] Comment on above: DESIRED INR:2.0-3.0 CONDITIONS NOT LISTED BELOW2.5-3.5 FOR PROSTHETIC HEART VALVE REPLACEMENT2.5-3.5 RECURRENT THROMBOSIS Laboratory - Chemistry and C hemistry - challengeon 12-19-2023 Bilirubin Ql (U) Negative NEGATIVE [facility] Glucose (U) [Mass/Vol] Negative NEGATIVE [facility] Ketones Ql (U) 40 mg/dL Abnormal NEGATIVE [facility] pH (U) 5.5 [pH] 5.0-9.0 [facility] Specific gravity (U) [Rel density] >=1.030 Abnormal 1.005-1.02 5 [facility] Urobilinogen Qn (U) 0.2 {Sajan'U}/dL 0.2-1.0 [facility] Albumin [Mass/Vol] 4.0 g/dL 3.4-5.0 [facility] ALP [Catalytic activity/Vol] 90 U/L 46-116 [facility] ALT [Catalytic activity/Vol] 34 U/L 14-59 [facility] AST [Catalytic activity/Vol] 27 U/L 15-37 [facility] Bilirubin [Mass/Vol] 0.6 mg/dL 0.2-1.0 [facility] Calcium [Mass/Vol] 9.2 mg/dL 8.5-10.1 [facility] Chloride [Moles/Vol] 104 mmol/L 98-107 [facility] CO2 [Moles/Vol] 28.2 mmol/L 21.0-32.0 [facility] Creatinine [Mass/Vol] 0.79 mg/dL 0.55-1.02 [facility] GFR/1.73 sq M.predicted MDRD (S/P/Bld) [Vol rate/Area] mL/min/{1.73_m2} >=60 [facility] Glucose [Mass/Vol] 93 mg/dL 74-106 [facility] Potassium [Moles/Vol] 3.6 mmol/L 3.5-5.1 [facility] Protein [Mass/Vol] 6.9 g/dL 6.4-8.2 [facility] Sodium [Moles/Vol] 142 mmol/L 136-145 [facility] Urea nitrogen [Mass/Vol] 14.0 mg/dL 7.0-18.0 [facility] Urea nitrogen/Creatinine [Mass ratio] 17.7 mg/mg [facility] Laboratory - Hematology and Cell countson 12-19-2023 Immature granulocytes/100 WBC (Bld) 0.3 % 0.0-0.5 [facility] Laboratory - Specimen inform ationon 12-19-2023 Appearance (U) SL CLOUDY CLEAR [facility] Color (U) YELLOW YELLOW [facility] Laboratory - Urinalysison Leukocyte esterase Test strip Ql (U) Negative NEGATIVE [facility] Mucus Ql (Urine sed) TRACE Abnormal NONE SEEN [facility] Nitrite Ql (U) Negative NEGATIVE [facility] Protein Ql (U) TRACE mg/dL NEG/TRACE [facility] Leukocytes [#/volume] correc main for nucleated erythrocytes in Blood by Automated counon 12-19-2023 WBC corrected for nucl RBC Auto (Bld) [#/Vol] 13.9 10 3/uL High 4.0-11.0 [facility] Lymphocytes Auto (Bld) [#/Vo l]on 12-19-2023 Lymphocytes (Bld) [#/Vol] 2.3 10 3/uL 1.2-3.8 [facility] Lymphocytes/100 WBC Auto (Bl d)on 12-19-2023 Lymphocytes/100 WBC (Bld) 16.7 % Low 20.5-60.0 [facility] MCH Auto (RBC) [Entitic mass ]on 12-19-2023 MCH (RBC) [Entitic mass] 29.2 pg 26.7-34.0 [facility] MCHC Auto (RBC) [Mass/Vol]on 12-19-2023 MCHC (RBC) [Mass/Vol] 32.8 g/dL 29.9-35.2 [facility] MCV Auto (RBC) [Entitic vol] on 12-19-2023 MCV (RBC) [Entitic vol] 89.2 fL 81.0-99.0 [facility] Monocytes Auto (Bld) [#/Vol] on 12-19-2023 Monocytes (Bld) [#/Vol] 1.2 10 3/uL High 0.3-0.8 [facility] Monocytes/100 WBC Auto (Bld) on 12-19-2023 Monocytes/100 WBC (Bld) 8.8 % 1.7-12.0 [facility] Neutrophils Auto (Bld) [#/Vo l]on 12-19-2023 Neutrophils (Bld) [#/Vol] 10.1 10 3/uL High 1.4-6.5 [facility] Neutrophils/100 WBC Auto (Bl d)on 12-19-2023 Neutrophils/100 WBC (Bld) 72.6 % 43.0-75.0 [facility] No Panel Informationon 12-18 Urine Bacteria MODERATE #/HPF Abnormal NONE SEEN [facility] Urine Calcium Oxalate Crystals RARE [facility] Urine Culture Reflexed YES [facility] Urine Microscopic Review YES [facility] Urine Occult Blood LARGE Abnormal NEGATIVE [facility] Urine Other Casts SEEN #/LPF Abnormal NONE SEEN [facility] Urine Other Crystals Seen #/HPF Abnormal None Seen [facility] Urine RBC 75-100 #/HPF Abnormal 0-2 [facility] Urine Squamous Epithelial Cells FEW #/LPF Abnormal NONE/RARE [facility] Urine WBC 2-5 #/HPF Abnormal NONE SEEN [facility] Eosinophils # (Auto) 0.2 10 3/uL 0.0-0.7 [facility] Immature Granulocyte # (Auto) 0.04 10 3/uL High 0.00-0.03 [facility] Troponin I High Sensitivity 5.1 pg/mL 4.0-51.3 [facility] Comment on above: CUT-OFF POINTS HAVE [...] (Bld) [Entitic vol] 9.0 fL Low 9.5-13.5 [facility] Platelets Auto (Bld) [#/Vol] on 12-19-2023 Platelets (Bld) [#/Vol] 300 10 3/uL 150-450 [facility] Prothrombin time (PT)on 11-27 PT Coag (PPP) [Time] 10.1 s 9.0-11.6 [facility] RBC Auto (Bld) [#/Vol]on RBC (Bld) [#/Vol] 4.55 10 6/uL 4.20-5.40 [facility] Serum or plasma albumin/glob ulin mass ratioon 12-19-2023 Albumin/Globulin [Mass ratio] 1.4 {ratio} [facility] Serum or plasma anion gap de terminationon 12-19-2023 Anion gap [Moles/Vol] 13.4 mmol/L [facility] Yeast detection in urine sed iment by light microscopyon 12-19-2023 Yeast LM Ql (Urine sed) SEEN Abnormal NONE SEEN [facility] Basophils Auto (Bld) [#/Vol] on 12-06-2023 Basophils (Bld) [#/Vol] 0.1 10 3/uL 0.0-0.1 [facility] Basophils/100 WBC Auto (Bld) on 12-06-2023 Basophils/100 WBC (Bld) 1.0 % 0.2-2.0 [facility] Cholesterol in LDL Calc [Mas s/Vol]on 12-06-2023 Cholesterol in LDL [Mass/Vol] 105.0 mg/dL [facility] Comment on above: <100 mg/dl [id number] 0-129 mg/dl NEAR OR ABOVE [id number] mg/dl BORDERLINE [id number] mg/dl HIGH>190 mg/dl VERY HIGH Cholesterol in VLDL Calc [Ma ss/Vol]on 12-06-2023 Cholesterol in VLDL [Mass/Vol] 21.0 mg/dL [facility] Eosinophils/100 WBC Auto (Bl d)on 12-06-2023 Eosinophils/100 WBC (Bld) 3.7 % 0.9-7.0 [facility] Erythrocyte distribution wid th Auto (RBC) [Ratio]on 12-06-2023 Erythrocyte distribution width (RBC) [Ratio] 13.8 % 11.0-15.0 [facility] Estimated glomerular filtrat ion rate (GFR) non- Americanon 12-06-2023 GFR/1.73 sq M.predicted among non-blacks MDRD (S/P/Bld) [Vol rate/Area] mL/min/{1.73_m2} >=60 [facility] Globulin Calc (S) [Mass/Vol] on 12-06-2023 Globulin (S) [Mass/Vol] 3.0 g/dL [facility] Hematocrit Auto (Bld) [Volum e fraction]on 12-06-2023 Hematocrit (Bld) [Volume fraction] 41.8 % 36.0-48.0 [facility] Hemoglobin [Mass/volume] in Bloodon 12-06-2023 Hemoglobin (Bld) [Mass/Vol] 13.3 g/dL 12.0-16.0 [facility] Laboratory - Chemistry and C hemistry - challengeon 12-06-2023 Albumin [Mass/Vol] 3.8 g/dL 3.4-5.0 [facility] ALP [Catalytic activity/Vol] 110 U/L 46-116 [facility] ALT [Catalytic activity/Vol] 40 U/L 14-59 [facility] AST [Catalytic activity/Vol] 32 U/L 15-37 [facility] Bilirubin [Mass/Vol] 0.4 mg/dL 0.2-1.0 [facility] Calcium [Mass/Vol] 8.8 mg/dL 8.5-10.1 [facility] Chloride [Moles/Vol] 105 mmol/L 98-107 [facility] Cholesterol [Mass/Vol] 189 mg/dL <=200 [facility] Cholesterol in HDL [Mass/Vol] 63 mg/dL High 40-60 [facility] Comment on above: > or =60 mg/dl - LOW CARDIOVASCULAR RISK<40 mg/dl - HIGH CARDIOVASCULAR RISK CO2 [Moles/Vol] 32.2 mmol/L High 21.0-32.0 [facility] Creatinine [Mass/Vol] 0.66 mg/dL 0.55-1.02 [facility] GFR/1.73 sq M.predicted MDRD (S/P/Bld) [Vol rate/Area] mL/min/{1.73_m2} >=60 [facility] Glucose [Mass/Vol] 91 mg/dL 74-106 [facility] Potassium [Moles/Vol] 4.1 mmol/L 3.5-5.1 [facility] Protein [Mass/Vol] 6.8 g/dL 6.4-8.2 [facility] Sodium [Moles/Vol] 143 mmol/L 136-145 [facility] Triglyceride [Mass/Vol] 105 mg/dL <=150 [facility] TSH Qn 2.954 m[IU]/L 0.358-3.74 0 [facility] Urea nitrogen [Mass/Vol] 11.0 mg/dL 7.0-18.0 [facility] Urea nitrogen/Creatinine [Mass ratio] 16.7 mg/mg [facility] Laboratory - Hematology and Cell countson 12-06-2023 Immature granulocytes/100 WBC (Bld) 0.3 % 0.0-0.5 [facility] Leukocytes [#/volume] correc main for nucleated erythrocytes in Blood by Automated counon 12-06-2023 WBC corrected for nucl RBC Auto (Bld) [#/Vol] 6.8 10 3/uL 4.0-11.0 [facility] Lymphocytes Auto (Bld) [#/Vo l]on 12-06-2023 Lymphocytes (Bld) [#/Vol] 1.8 10 3/uL 1.2-3.8 [facility] Lymphocytes/100 WBC Auto (Bl d)on 12-06-2023 Lymphocytes/100 WBC (Bld) 26.8 % 20.5-60.0 [facility] MCH Auto (RBC) [Entitic mass ]on 12-06-2023 MCH (RBC) [Entitic mass] 29.2 pg 26.7-34.0 [facility] MCHC Auto (RBC) [Mass/Vol]on 12-06-2023 MCHC (RBC) [Mass/Vol] 31.8 g/dL 29.9-35.2 [facility] MCV Auto (RBC) [Entitic vol] on 12-06-2023 MCV (RBC) [Entitic vol] 91.7 fL 81.0-99.0 [facility] Monocytes Auto (Bld) [#/Vol] on 12-06-2023 Monocytes (Bld) [#/Vol] 0.5 10 3/uL 0.3-0.8 [facility] Monocytes/100 WBC Auto (Bld) on 12-06-2023 Monocytes/100 WBC (Bld) 7.9 % 1.7-12.0 [facility] Neutrophils Auto (Bld) [#/Vo l]on 12-06-2023 Neutrophils (Bld) [#/Vol] 4.1 10 3/uL 1.4-6.5 [facility] Neutrophils/100 WBC Auto (Bl d)on 12-06-2023 Neutrophils/100 WBC (Bld) 60.3 % 43.0-75.0 [facility] No Panel Informationon 12-05 Eosinophils # (Auto) 0.3 10 3/uL 0.0-0.7 [facility] Immature Granulocyte # (Auto) 0.02 10 3/uL 0.00-0.03 [facility] Platelet mean volume Auto (B ld) [Entitic vol]on 12-06-2023 Platelet mean volume (Bld) [Entitic vol] 8.7 fL Low 9.5-13.5 [facility] Platelets Auto (Bld) [#/Vol] on 12-06-2023 Platelets (Bld) [#/Vol] 291 10 3/uL 150-450 [facility] RBC Auto (Bld) [#/Vol]on RBC (Bld) [#/Vol] 4.56 10 6/uL 4.20-5.40 [facility] Serum or plasma albumin/glob ulin mass ratioon 12-06-2023 Albumin/Globulin [Mass ratio] 1.3 {ratio} [facility] Serum or plasma anion gap de terminationon 12-06-2023 Anion gap [Moles/Vol] 9.9 mmol/L [facility] Serum or plasma total choles terol/high density lipoprotein (HDL) cholesterol mass amador 12-06-2023 Cholesterol.total/C holesterol in HDL [Mass ratio] 3.0 {ratio} [facility] Comment on above: 3.3 - 4.4 LOW RISK4. 4 - 7.1 AVERAGE RISK7.1 - 11.0 MODERATE RISK>11.0 HIGH RISK A1C with Estimated Average G luon 11-19-2023 Glucose [Mass/Vol] 123 mg/dL Normal [facility] Comment on above: Result Comment: PERF ORMED BY: [place] [address] PATHOLOGIST CIRCLE SHEAR OPERATOR KOMAL COFFMAN M.D. Performed By: #### V [id number], HGB, ALB, CUMRSA, A1C [facility] eA #### [address] #### NICOTINE #### [facility] , Albumin Levelon 11-19-2023 Albumin [Mass/Vol] 4.6 g/dL Normal 3.5-5.7 [facility] Comment on above: Performed By: #### V [id number], HGB, ALB, CUMRSA, A1C WT eA #### [facility] [address] [place] [address] [place] #### NICOTINE #### [facility] , Albumin [Mass/volume] in Ser um or Plasma by Bromocresol green (BCG) dye binding methoOrdered By: Finn Ortez on 11-19-2023 Albumin BCG dye [Mass/Vol] 4.6 g/dL 3.5-5.7 [facility] Cotinine [Mass/volume] in Se rum or PlasmaOrdered By: Finn Ortez on 11-19-2023 Cotinine [Mass/Vol] <1.0 ng/mL . [facility] Comment on above: This test was develo ped and its performance characteristicsdetermined by [facility]. It has not been cleared orapproved by the Food and Drug Administration.Cotinine levels greater than 20.0 are consistent with theuse of tobacco or tobacco cessation products.Performed at: - [id number] [place], [place] [id number] Director: Vinh Almeida MD, Phone: [phone] Glucose mean value [Mass/vol ume] in Blood Estimated from glycated hemoglobinOrdered By: Finn Ortez on 11-19-2023 Average glucose Estimated from glycated hemoglobin (Bld) [Mass/Vol] 123 mg/dL [facility] Hemoglobin A1c percentageOrd ered By: Finn Ortez on 11-19-2023 HbA1c (Bld) [Mass fraction] 5.9 % High 4.3-5.6 [facility] Comment on above: Increased risk for d iabetes: 5.7 - 6.4diabetes: >6.4glycemic control for adults with diabetes: <7.0 Result Comment: Incr eased risk for diabetes: 5.7 - 6.4 diabetes: >6.4 glycemic control for adults with diabetes: <7.0 Performed By: #### V [id number], HGB, ALB, CUMRSA, A1C WTH eA #### [address] #### NICOTINE #### [facility] , Hemoglobin [Mass/volume] in BloodOrdered By: Finn Ortez on 11-19-2023 Hemoglobin (Bld) [Mass/Vol] 13.6 g/dL Normal 11.8-15.4 [facility] Comment on above: Result Comment: PERF ORMED BY: [place] [address] PATHOLOGIST CIRCLE SHEAR OPERATOR KOMAL COFFMAN M.D. Performed By: #### V [id number], HGB, ALB, CUMRSA, A1C [facility] eA #### [place] [address] [place] #### NICOTINE #### [facility] , MRSA Cultureon 11-19-2023 MRSA Culture MRSA Culture Results No MRSA Isolated 2 Days PERFORMED BY: [place] [address] PATHOLOGIST CIRCLE SHEAR OPERATOR KOMAL COFFMAN M.D. Normal [facility] Comment on above: Performed By: #### V [id number], HGB, ALB, CUMRSA, A1C [facility] eA #### [place] [address] [place] #### NICOTINE #### [facility] , Nicotine [Mass/volume] in Se rum or PlasmaOrdered By: Finn Ortez on 11-19-2023 Nicotine [Mass/Vol] <1.0 ng/mL . [facility] Comment on above: This test was develo ped and its performance characteristicsdetermined by [facility]. It has not been cleared orapproved by the Food and Drug Administration.Nicotine levels greater than 2.0 are consistent with theuse of tobacco or tobacco cessation products. Nicotine/Cotinine Bloodon Cotinine, Blood <1.0 Normal . [facility] Comment on above: Result Comment: This test was developed and its performance characteristics determined by [facility]. It has not been cleared or approved by the Food and Drug Administration. Cotinine levels greater than 20.0 are consistent with the use of tobacco or tobacco cessation products. Performed at: [facility] [address] [id number] Motor Scooter Repairer: Vinh Almeida MD, Phone: [phone] PERFORMED BY: [place] [address] PATHOLOGIST CIRCLE SHEAR OPERATOR KOMAL COFFMAN M.D. Performed By: #### V [id number], HGB, ALB, CUMRSA, A1C W[facility] eA #### [address] #### NICOTINE #### [facility] , Nicotine, Blood <1.0 Normal . [facility] Comment on above: Result Comment: This test was developed and its performance characteristics determined by [facility]. It has not been cleared or approved by the Food and Drug Administration. Nicotine levels greater than 2.0 are consistent with the use of tobacco or tobacco cessation products. Performed By: #### V [id number], HGB, ALB, CUMRSA, A1C WTH eA #### [facility] [address] [place] [address] [place] #### NICOTINE #### [facility] , Vitamin D 25 Hydroxy Totalon 11-19-2023 Vitamin D 25 Hydroxy Total 51.6 ng/mL Normal 30-100 [facility] Comment on above: Result Comment: EDIE MIN D STATUS 25(OH)VITAMIN D RANGE (ng/mL) Deficient <20 Insufficient 20 to <30 Sufficient 30 to 100 Reference: Radha Vargas Bischoff-Ferrari HA et al. Evaluation,treatment, and prevention of vitamin D deficiency; an Endocrine Society clinical practice guideline. JCEM. 2010; 96(7):1911-30. PERFORMED BY: [place] [address] PATHOLOGIST CIRCLE SHEAR OPERATOR KOMAL COFFMAN M.D. Performed By: #### V [id number], HGB, ALB, CUMRSA, A1C [facility] eA #### [place] [id number] [facility] #### NICOTINE #### [facility] , Vitamin D+Metabolites [Mass/ volume] in Serum or PlasmaOrdered By: Finn Ortez on 11-19-2023 Vitamin D+Metabolites [Mass/Vol] 51.6 ng/mL 30-100 [facility] Comment on above: VITAMIN D STATUS 25( OH)VITAMIN D RANGE (ng/mL) Deficient <20 Insufficient 20 to <30Sufficient 30 to 100Reference: Radha Vargas, Gisela RAMAN et al. Evaluation,treatment, and prevention of vitamin D deficiency; an Endocrine Society clinical practice guideline. JCEM. 2010; 96(7):1911-30. Wound methicillin resistant Staphylococcus aureus (MRSA) cultureOrdered By: Finn Ortez on 11-19-2023 MRSA isol Org specific cx Ql (Unsp spec) [facility] Bilirubin Test strip Ql (U)O rdered By: Karen Cardoso on 09-15-2023 Bilirubin Ql (U) Negative Negative [facility] Color of Urine by AutoOrdere d By: Karen Cardoso on 09-15-2023 Color (U) Yellow Normal Yellow [facility] Comment on above: Order Comment: Name Collection Type:: Collection Method Unknown Performed By: #### U A, CUU #### [address] Ketones Auto test strip (U) [Mass/Vol]Ordered By: Karen Cardoso on 09-15-2023 Ketones (U) [Mass/Vol] Trace High Negative [facility] Nitrite Test strip Ql (U)Ord ered By: Karen Cardoso on 09-15-2023 Nitrite Ql (U) Negative Negative [facility] Protein Auto test strip (U) [Mass/Vol]Ordered By: Karen Cardoso on 09-15-2023 Protein (U) [Mass/Vol] Negative Negative [facility] Specific gravity Auto test s trip (U) [Rel density]Ordered By: Karen Cardoso on 09-15-2023 Specific gravity (U) [Rel density] 1.007 1.001-1.03 0 [facility] Urinalysison 09-15-2023 Appearance (U) Clear Normal Clear [facility] Comment on above: Order Comment: Name Collection Type:: Collection Method Unknown Performed By: #### U A, CUU #### [address] Bilirubin,Urine Negative Normal Negative [facility] Comment on above: Order Comment: Name Collection Type:: Collection Method Unknown Performed By: #### U A, CUU #### [address] Glucose Ql (U) Normal Normal Normal [facility] Comment on above: Order Comment: Name Collection Type:: Collection Method Unknown Performed By: #### U A, CUU #### [address] Ketones Ql (U) Trace High Negative [facility] Comment on above: Order Comment: Name Collection Type:: Collection Method Unknown Performed By: #### U A, CUU #### [address] Leukocyte esterase Test strip Ql (U) Negative Normal Negative [facility] Comment on above: Order Comment: Name Collection Type:: Collection Method Unknown Performed By: #### U A, CUU #### [address] Nitrite,Urine Negative Normal Negative [facility] Comment on above: Order Comment: Name Collection Type:: Collection Method Unknown Performed By: #### U A, CUU #### [address] Occult Blood,Urine 2+ High Negative [facility] Comment on above: Order Comment: Name Collection Type:: Collection Method Unknown Result Comment: PERF ORMED BY: [place] [address] PATHOLOGIST CIRCLE SHEAR OPERATOR KOMAL COFFMAN M.D. Performed By: #### U A, CUU #### [address] Protein,Urine Negative Normal Negative [facility] Comment on above: Order Comment: Name Collection Type:: Collection Method Unknown Performed By: #### U A, CUU #### [address] Specificy [place],Urine 1.007 Normal 1.001-1.03 0 [facility] Comment on above: Order Comment: Name Collection Type:: Collection Method Unknown Performed By: #### U A, CUU #### [address] Urobilinogen,Urine Normal Normal Normal [facility] Comment on above: Order Comment: Name Collection Type:: Collection Method Unknown Performed By: #### U A, CUU #### [address] Urine Cultureon 09-15-2023 Bacteria identified Cx Nom (U) 50,000 colonies/ml mixed bacterial skin contaminants 2 Days PERFORMED BY: [place] [address] PATHOLOGIST CIRCLE SHEAR OPERATOR KOMAL COFFMAN M.D. Normal [facility] Comment on above: Performed By: #### U A, CUU #### [facility] [address] [place], [place] [id number] [facility] Urine clarity by refractomet ry automatedOrdered By: Karen Cardoso on 09-15-2023 Clarity Refractometry automated (U) Clear Clear [facility] Urine culture routineOrdered By: Karen Cardoso on 09-15-2023 Bacteria identified Cx Nom (U) 2 Days [facility] Urine glucose measurement by automated test strip (mass/volume)Ordered By: Karen Cardoso on 09-15-2023 Glucose Auto test strip (U) [Mass/Vol] Normal mg/dL Normal [facility] Urine hemoglobin detection b y automated test stripOrdered By: Karen Cardoso on 09-15-2023 Hemoglobin Auto test strip Ql (U) 2+ High Negative [facility] Urine leukocyte esterase det ection by automated test stripOrdered By: Karen Cardoso on 09-15-2023 Leukocyte esterase Auto test strip Ql (U) Negative Negative [facility] Urine pH measurement by auto mated test stripOrdered By: Karen Cardoso on 09-15-2023 pH (U) 5.5 [pH] Normal 5.0-9.0 [facility] Comment on above: Order Comment: Name Collection Type:: Collection Method Unknown Performed By: #### U A, CUU #### [facility] [address] [place], [place] [id number] [facility] Urobilinogen Auto test strip (U) [Mass/Vol]Ordered By: Karen Cardoso on 09-15-2023 Urobilinogen (U) [Mass/Vol] Normal mg/dL Normal [facility] BI MAMMOGRAM SCREENING TOMOS YNTHESIS BILATERALon [...] IS VERY IMPORTANT TO YOUR HEALTH. THE [employer] GUIDELINES RECOMMEND THAT WOMEN 40 [...] Right Hip bone density obtained with a [employer] whole body system: Region BMD Young-Adult Age-Matched [...] Left Forearm bone density obtained with a [employer] acquired by [employer] whole body system: Region BMD Young-Adult Age-Matched [...] AP Spine bone density obtained with a [employer] whole body system: Region BMD Young-Adult Age-Matched [...] Basophils (Bld) [#/Vol] 0.0 10 3/uL 0.0-0.1 [facility] Basophils/100 WBC Auto (Bld) on 06-23-2023 Basophils/100 WBC (Bld) 0.4 % 0.2-2.0 [facility] Cholesterol in LDL Calc [Mas s/Vol]on 06-23-2023 Cholesterol in LDL [Mass/Vol] 104.0 mg/dL [facility] Comment on above: <100 mg/dl [id number] 0-129 mg/dl NEAR OR ABOVE [id number] mg/dl BORDERLINE [id number] mg/dl HIGH>190 mg/dl VERY HIGH Cholesterol in VLDL Calc [Ma ss/Vol]on 06-23-2023 Cholesterol in VLDL [Mass/Vol] 19.8 mg/dL [facility] Eosinophils/100 WBC Auto (Bl d)on 06-23-2023 Eosinophils/100 WBC (Bld) 1.8 % 0.9-7.0 [facility] Erythrocyte distribution wid th Auto (RBC) [Ratio]on 06-23-2023 Erythrocyte distribution width (RBC) [Ratio] 14.1 % 11.0-15.0 [facility] Estimated glomerular filtrat ion rate (GFR) non- Americanon 06-23-2023 GFR/1.73 sq M.predicted among non-blacks MDRD (S/P/Bld) [Vol rate/Area] mL/min/{1.73_m2} >=60 [facility] Globulin Calc (S) [Mass/Vol] on 06-23-2023 Globulin (S) [Mass/Vol] 3.6 g/dL [facility] Glucose mean value [Mass/vol ume] in Blood Estimated from glycated hemoglobinon 06-23-2023 Average glucose Estimated from glycated hemoglobin (Bld) [Mass/Vol] 114 mg/dL [facility] Hematocrit Auto (Bld) [Volum e fraction]on 06-23-2023 Hematocrit (Bld) [Volume fraction] 44.3 % 36.0-48.0 [facility] Hemoglobin [Mass/volume] in Bloodon 06-23-2023 Hemoglobin (Bld) [Mass/Vol] 14.0 g/dL 12.0-16.0 [facility] Laboratory - Chemistry and C hemistry - challengeon 06-23-2023 Albumin [Mass/Vol] 3.7 g/dL 3.4-5.0 [facility] ALP [Catalytic activity/Vol] 88 U/L 46-116 [facility] ALT [Catalytic activity/Vol] 29 U/L 14-59 [facility] AST [Catalytic activity/Vol] 18 U/L 15-37 [facility] Bilirubin [Mass/Vol] 0.6 mg/dL 0.2-1.0 [facility] Calcium [Mass/Vol] 9.1 mg/dL 8.5-10.1 [facility] Chloride [Moles/Vol] 104 mmol/L 98-107 [facility] Cholesterol [Mass/Vol] 196 mg/dL <=200 [facility] Cholesterol in HDL [Mass/Vol] 73 mg/dL 40-60 [facility] Comment on above: > or =60 mg/dl - LOW CARDIOVASCULAR RISK<40 mg/dl - HIGH CARDIOVASCULAR RISK CO2 [Moles/Vol] 30.4 mmol/L 21.0-32.0 [facility] Creatinine [Mass/Vol] 0.67 mg/dL 0.55-1.02 [facility] GFR/1.73 sq M.predicted MDRD (S/P/Bld) [Vol rate/Area] mL/min/{1.73_m2} >=60 [facility] Glucose [Mass/Vol] 97 mg/dL 74-106 [facility] Potassium [Moles/Vol] 3.8 mmol/L 3.5-5.1 [facility] Protein [Mass/Vol] 7.3 g/dL 6.4-8.2 [facility] Sodium [Moles/Vol] 145 mmol/L 136-145 [facility] Triglyceride [Mass/Vol] 99 mg/dL <=150 [facility] Urea nitrogen [Mass/Vol] 13.0 mg/dL 7.0-18.0 [facility] Urea nitrogen/Creatinine [Mass ratio] 19.4 mg/mg [facility] Laboratory - Hematology and Cell countson 06-23-2023 HbA1c (Bld) [Mass fraction] 5.6 % 4.5-6.2 [facility] Comment on above: ADA RECOMMENDED LIMI T 4.0 - 6.0ADA THERAPEUTIC TARGET < 7.0ACTION SUGGESTED> 7.0 Immature granulocytes/100 WBC (Bld) 0.8 % 0.0-0.5 [facility] Leukocytes [#/volume] correc main for nucleated erythrocytes in Blood by Automated counon 06-23-2023 WBC corrected for nucl RBC Auto (Bld) [#/Vol] 9.6 10 3/uL 4.0-11.0 [facility] Lymphocytes Auto (Bld) [#/Vo l]on 06-23-2023 Lymphocytes (Bld) [#/Vol] 1.8 10 3/uL 1.2-3.8 [facility] Lymphocytes/100 WBC Auto (Bl d)on 06-23-2023 Lymphocytes/100 WBC (Bld) 18.7 % 20.5-60.0 [facility] MCH Auto (RBC) [Entitic mass ]on 06-23-2023 MCH (RBC) [Entitic mass] 28.4 pg 26.7-34.0 [facility] MCHC Auto (RBC) [Mass/Vol]on 06-23-2023 MCHC (RBC) [Mass/Vol] 31.6 g/dL 29.9-35.2 [facility] MCV Auto (RBC) [Entitic vol] on 06-23-2023 MCV (RBC) [Entitic vol] 89.9 fL 81.0-99.0 [facility] Monocytes Auto (Bld) [#/Vol] on 06-23-2023 Monocytes (Bld) [#/Vol] 0.8 10 3/uL 0.3-0.8 [facility] Monocytes/100 WBC Auto (Bld) on 06-23-2023 Monocytes/100 WBC (Bld) 7.9 % 1.7-12.0 [facility] Neutrophils Auto (Bld) [#/Vo l]on 06-23-2023 Neutrophils (Bld) [#/Vol] 6.8 10 3/uL 1.4-6.5 [facility] Neutrophils/100 WBC Auto (Bl d)on 06-23-2023 Neutrophils/100 WBC (Bld) 70.4 % 43.0-75.0 [facility] No Panel Informationon 06-23 Eosinophils # (Auto) 0.2 10 3/uL 0.0-0.7 [facility] Immature Granulocyte # (Auto) 0.08 10 3/uL 0.00-0.03 [facility] Platelet mean volume Auto (B ld) [Entitic vol]on 06-23-2023 Platelet mean volume (Bld) [Entitic vol] 8.6 fL 9.5-13.5 [facility] Platelets Auto (Bld) [#/Vol] on 06-23-2023 Platelets (Bld) [#/Vol] 362 10 3/uL 150-450 [facility] RBC Auto (Bld) [#/Vol]on RBC (Bld) [#/Vol] 4.93 10 6/uL 4.20-5.40 [facility] Serum or plasma albumin/glob ulin mass ratioon 06-23-2023 Albumin/Globulin [Mass ratio] 1.0 {ratio} [facility] Serum or plasma anion gap de terminationon 06-23-2023 Anion gap [Moles/Vol] 14.4 mmol/L [facility] Serum or plasma total choles terol/high density lipoprotein (HDL) cholesterol mass amador 06-23-2023 Cholesterol.total/C holesterol in HDL [Mass ratio] 2.7 {ratio} [facility] Comment on above: 3.3 - 4.4 LOW RISK4. 4 - 7.1 AVERAGE RISK7.1 - 11.0 MODERATE RISK>11.0 HIGH RISK XR hip RT min 2V(w/wo pelvis )*on 06-13-2023 XR hip RT min 2V(w/wo pelvis)* [facility] [place] [address] XRay Report Signed Patient: Antonino Torres MR#: [id number] : 1955 Acct:[id number] Age/Sex: 67 / F ADM Date: 06/13/23 [place] [facility] [place]: Type: [facility] Attending Dr: Finn Ortez II, MD [...] Silvina Rolon M.D.06/13/2023 12:57 PM Dictation Location: [place] [address] Transcribed By: SAGAR 06/13/23 1257 Dictated By: Silvina Rolon MD 06/13/23 1255 Signed By: 06/13/23 1257 Normal [facility] CT CSPINE WO CONon CT CSPINE WO [...] by: DONYA BIGGS Date: 2022-08-27 17:05 Normal [facility] CT HEAD WO CONon 08-27-2022 [...] Date: 2022-08-27 17:02 Normal [facility] XR HIP LT 2 3V W [...] Date: 2022-08-27 17:40 Normal [facility] XR hip RT min 2V(w/wo pelvis )*on 07-12-2022 XR hip RT min 2V(w/wo pelvis)* [facility] Other XR hip RT min 2V(w/wo pelvis)* [facility] Other XR hip RT min 2V(w/wo pelvis)* [address] Other XR hip RT min 2V(w/wo pelvis)* [place] [address] [facility] Other XR hip RT min 2V(w/wo pelvis)* XRay Report [facility] Other XR hip RT min 2V(w/wo pelvis)* Signed [facility] Other XR hip RT min 2V(w/wo pelvis)* Patient: Antonino Torres MR#: [id number] [facility] Other XR hip RT min 2V(w/wo pelvis)* 0540 [facility] Other XR hip RT min 2V(w/wo pelvis)* : 1955 Acct:[id number] [facility] Other XR hip RT min 2V(w/wo pelvis)* Age/Sex: 66 / F ADM Date: 07/12/22 [facility] Other XR hip RT min 2V(w/wo pelvis)* Loc: [facility] Room: Type: [facility] Other XR hip RT min 2V(w/wo pelvis)* Attending Dr: Finn Ortez II, MD [facility] Other XR hip RT min 2V(w/wo pelvis)* Copies to: Finn Ortez MD [facility] Other XR hip RT min 2V(w/wo pelvis)* Ordering Provider: Finn Ortez MD [facility] Other XR hip RT min 2V(w/wo pelvis)* Date of Service: 07/12/22 [facility] Other XR hip RT min 2V(w/wo pelvis)* XR/XR hip RT min 2V(w/wo pelvis)*: Right hip pain [facility] Other XR hip RT min 2V(w/wo pelvis)* XR hip RT min 2V(w/wo pelvis)* 07/12/2022 10:08 AM [facility] Other XR hip RT min 2V(w/wo pelvis)* SIGNS AND SYMPTOMS: Right hip pain, right inguinal pain [facility] Other XR hip RT min 2V(w/wo pelvis)* PROTOCOL: Frontal radiograph the pelvis with crosstable lateral view of the right hip [facility] Other XR hip RT min 2V(w/wo pelvis)* COMPARISON: None [facility] Other XR hip RT min 2V(w/wo pelvis)* FINDINGS: [facility] Other XR hip RT min 2V(w/wo pelvis)* 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 There is no hardware complication or malalignment. [facility] Other XR hip RT min 2V(w/wo pelvis)* The bony ring of the pelvis is grossly intact. Degenerative changes are noted in the lumbar spine [facility] Other XR hip RT min 2V(w/wo pelvis)* and sacroiliac joints. There is enthesophyte formation at the greater trochanters and iliac wings. [facility] Other XR hip RT min 2V(w/wo pelvis)* There is mild narrowing of the right hip joint space. [facility] Other XR hip RT min 2V(w/wo pelvis)* XR/XR hip RT min 2V(w/wo pelvis)* [facility] Other XR hip RT min 2V(w/wo pelvis)* IMPRESSION: [facility] Other XR hip RT min 2V(w/wo pelvis)* No fracture or dislocation. Nor [employer] Other XR hip RT min 2V(w/wo pelvis)* Multifocal degenerative change is noted, as above. [facility] Other XR hip RT min 2V(w/wo pelvis)* Impression dictated by: Justen Jenkins M.D.07/12/2022 1:35 PM [facility] Other XR hip RT min 2V(w/wo pelvis)* Dictation Location: [place] [address] [facility] Other XR hip RT min 2V(w/wo pelvis)* Transcribed By: SAGAR 07/12/22 9353 [facility] Other XR hip RT min 2V(w/wo pelvis)* Dictated By: Justen Jenkins II, MD 07/12/22 1333 [facility] Other XR hip RT min 2V(w/wo pelvis)* Signed By: [facility] Other XR hip RT min 2V(w/wo pelvis)* 07/12/22 1335 [facility] Other CBC AUTO DIFFon 03-12-2022 BASO # 0.1 103/ul Normal 0.0-0.1 [facility] Comment on above: Performed By: #### D ATCBC #### [facility] [address] [place] [address] Dr. David Phillips Basophils/100 WBC (Bld) 1.0 % Normal 0.2-2.0 [facility] Comment on above: Performed By: #### D ATCBC #### [facility] [address] [place] [address] Dr. David Phillips EO # 0.2 103/ul Normal 0.0-0.7 [facility] Comment on above: Performed By: #### D ATCBC #### [facility] [address] [place] [address] Dr. David Phillips Eosinophils/100 WBC (Bld) 3.7 % Normal 0.9-7.0 [facility] Comment on above: Performed By: #### D ATCBC #### [facility] [address] [place] [address] Dr. David Phillips Erythrocyte distribution width (RBC) [Ratio] 13.1 % Normal 11.0-15.0 [facility] Comment on above: Performed By: #### D ATCBC #### [facility] [address] [place] [address] Dr. David Phillips Hematocrit (Bld) [Volume fraction] 41.6 % Normal 36.0-48.0 [facility] Comment on above: Performed By: #### D ATCBC #### [facility] [address] [place] [address] Dr. David Phillips Hemoglobin (Bld) [Mass/Vol] 13.6 g/dL Normal 12.0-16.0 [facility] Comment on above: Performed By: #### D ATCBC #### [facility] [address] [place] [address] [address] David Phillips IG # 0.01 10e3/ul Normal 0.00-0.03 [facility] Comment on above: Performed By: #### D ATCBC #### [facility] [address] [place] [address] Dr. David Phillips IG % 0.2 % Normal 0.0-0.5 [facility] Comment on above: Performed By: #### D ATCBC #### [facility] [address] [place] [address] Dr. David Phillips LYMPH # 1.7 103/ul Normal 1.2-3.8 [facility] Comment on above: Performed By: #### D ATCBC #### [facility] [address] [place] [address] Dr. David Phillips Lymphocytes/100 WBC (Bld) 29.0 % Normal 20.5-60.0 [facility] Comment on above: Performed By: #### D ATCBC #### [facility] [address] [place] [address] Dr. David Phillips MCH (RBC) [Entitic mass] 28.9 pg Normal 26.7-34.0 [facility] Comment on above: Performed By: #### D ATCBC #### [facility] [address] [place] [address] Dr. David Phillips MCHC (RBC) [Mass/Vol] 32.7 g/dL Normal 29.9-35.2 [facility] Comment on above: Performed By: #### D ATCBC #### [facility] [address] [place] [address] Dr. David Phillips MCV (RBC) [Entitic vol] 88.3 fL Normal 81.0-99.0 [facility] Comment on above: Performed By: #### D ATCBC #### [facility] [address] [place] [address] Dr. David Phillips MONO # 0.5 103/ul Normal 0.3-0.8 [facility] Comment on above: Performed By: #### D ATCBC #### [facility] [address] [place] [address] [address] David Phillips Monocytes/100 WBC (Bld) 7.7 % Normal 1.7-12.0 [facility] Comment on above: Performed By: #### D ATCBC #### [facility] [address] [place] [address] Dr. David Phillips NEUT # 3.4 103/ul Normal 1.4-6.5 [facility] Comment on above: Performed By: #### D ATCBC #### [facility] [address] [place] [address] Dr. David Pihllips Neutrophils/100 WBC (Bld) 58.4 % Normal 43.0-75.0 [facility] Comment on above: Performed By: #### D ATCBC #### [facility] [address] [place] [address] Dr. David Phillips Platelet mean volume (Bld) [Entitic vol] 9.0 fL Critically low 9.5-13.5 [facility] Comment on above: Performed By: #### D ATCBC #### [facility] [address] [place] [address] Dr. David Phillips PLT 273 103/ul Normal 150-450 [facility] Comment on above: Performed By: #### D ATCBC #### [facility] [address] [place] [address] Dr. David Phillips RBC 4.71 106/ul Normal 4.20-5.40 [facility] Comment on above: Performed By: #### D ATCBC #### [facility] [address] [place] [address] Dr. David Phillips WBC 5.9 103/ul Normal 4.0-11.0 [facility] Comment on above: Performed By: #### D ATCBC #### [facility] [address] [place] [address] Dr. David Phillips BRIANNA- BMP WITH LIPIDon 2021 Anion gap [Moles/Vol] 6.8 mmol/L Normal [facility] Comment on above: Performed By: #### D ATCBC #### [facility] [address] [place] [address] [address] David Phillips Calcium [Mass/Vol] 8.6 mg/dL Normal 8.5-10.1 [facility] Comment on above: Performed By: #### D ATCBC #### [facility] [address] [place] [address] [address] David Phillips Chloride [Moles/Vol] 105 mmol/L Normal 98-107 [facility] Comment on above: Performed By: #### D ATCBC #### [facility] [address] [place] [address] [address] David Phillips Cholesterol [Mass/Vol] 175 mg/dL Normal <=200 [facility] Comment on above: Performed By: #### D ATCBC #### [facility] [address] [place] [address] [address] David Phillips Cholesterol in HDL [Mass/Vol] 68 mg/dL Critically high 40-60 [facility] Comment on above: Performed By: #### D ATCBC #### [facility] [address] [place] [address] [address] David Phillips Cholesterol in LDL [Mass/Vol] 96.8 mg/dL Normal [facility] Comment on above: Performed By: #### D ATCBC #### [facility] [address] [place] [address] [address] David Phillips CO2 [Moles/Vol] 32.2 mmol/L Critically high 21.0-32.0 [facility] Comment on above: Performed By: #### D ATCBC #### [facility] [address] [place] [address] [address] David Phillips Creatinine [Mass/Vol] 0.63 mg/dL Normal 0.55-1.02 [facility] Comment on above: Performed By: #### D ATCBC #### [facility] [address] [place] [address] [address] David Phillips EGFR-AF ANDORRAN >60 Normal >=60 [facility] Comment on above: Performed By: #### D ATCBC #### [facility] [address] [place] [address] [address] David Phillips EGFR-NON AF ANDORRAN >60 Normal >=60 [facility] Comment on above: Performed By: #### D ATCBC #### [facility] [address] [place] [address] [address] David Phillips Glucose [Mass/Vol] 97 mg/dL Normal 74-106 [facility] Comment on above: Performed By: #### D ATCBC #### [facility] [address] [place] [address] [address] David Phillips HDL NORMAL > or = 60 mg/dl - LO W CARDIOVASCULAR RISK <40 mg/dl - HIGH CARDIOVASCULAR RISK Normal [facility] Comment on above: Performed By: #### D ATCBC #### [facility] [address] [place] [address] [address] David Phillips LDL CALC NORMAL SEE BELOW Normal [facility] Comment on above: Result Comment: <100 mg/dl OPTIMAL 100 - 129 mg/dl NEAR OR ABOVE OPTIMAL 130 - 159 mg/dl BORDERLINE HIGH 160 - 189 mg/dl HIGH >190 mg/dl VERY HIGH Performed By: #### D ATCBC #### [facility] [address] [address] [address] David Phillips Potassium [Moles/Vol] 4.0 mmol/L Normal 3.5-5.1 [facility] Comment on above: Performed By: #### D ATCBC #### [facility] [address] [place] [address] [address] David Phillips Sodium [Moles/Vol] 140 mmol/L Normal 136-145 [facility] Comment on above: Performed By: #### D ATCBC #### [facility] [address] [place] [address] [address] David Phillips Triglyceride [Mass/Vol] 51 mg/dL Normal <=150 [facility] Comment on above: Performed By: #### D ATCBC #### [facility] [address] [place] [address] [address] David Phillips Urea nitrogen [Mass/Vol] 17.0 mg/dL Normal 7.0-18.0 [facility] Comment on above: Performed By: #### D ATCBC #### [facility] [address] [place] [address] Dr. David Phillips Urea nitrogen/Creatinine [Mass ratio] 27.0 mg/mg Normal [facility] Comment on above: Performed By: #### D ATCBC #### [facility] [address] [place] [address] Dr. David Phillips VLDL CALC 10.2 mg/dL Normal [facility] Comment on above: Performed By: #### D ATCBC #### [facility] [address] [place] [address] Dr. David Phillips CBC AUTO DIFFon 02-07-2022 BASO # 0.1 103/ul Normal 0.0-0.1 [facility] Comment on above: Performed By: #### D ATCBC #### [facility] [address] [place] [address] Dr. David Phillips Basophils/100 WBC (Bld) 0.5 % Normal 0.2-2.0 [facility] Comment on above: Performed By: #### D ATCBC #### [facility] [address] [place] [address] Dr. David Phillips EO # 0.2 103/ul Normal 0.0-0.7 [facility] Comment on above: Performed By: #### D ATCBC #### [facility] [address] [place] [address] Dr. David Phillips Eosinophils/100 WBC (Bld) 1.4 % Normal 0.9-7.0 [facility] Comment on above: Performed By: #### D ATCBC #### [facility] [address] [place] [address] Dr. David Phillips Erythrocyte distribution width (RBC) [Ratio] 13.2 % Normal 11.0-15.0 [facility] Comment on above: Performed By: #### D ATCBC #### [facility] [address] [place] [address] Dr. David Phillips Hematocrit (Bld) [Volume fraction] 42.7 % Normal 36.0-48.0 [facility] Comment on above: Performed By: #### D ATCBC #### [facility] [address] [address] [address] David Phillips Hemoglobin (Bld) [Mass/Vol] 13.7 g/dL Normal 12.0-16.0 [facility] Comment on above: Performed By: #### D ATCBC #### [facility] [address] [address] [address] David Phillips IG # 0.04 10e3/ul Critically high 0.00-0.03 [facility] Comment on above: Performed By: #### D ATCBC #### [facility] [address] [address] [address] David Phillips IG % 0.4 % Normal 0.0-0.5 [facility] Comment on above: Performed By: #### D ATCBC #### [facility] [address] [address] [address] David Phillips LYMPH # 1.5 103/ul Normal 1.2-3.8 [facility] Comment on above: Performed By: #### D ATCBC #### [facility] [address] [address] [address] David Phillips Lymphocytes/100 WBC (Bld) 12.9 % Critically low 20.5-60.0 [facility] Comment on above: Performed By: #### D ATCBC #### [facility] [address] [address] [address] David Phillips MCH (RBC) [Entitic mass] 29.0 pg Normal 26.7-34.0 [facility] Comment on above: Performed By: #### D ATCBC #### [facility] [address] [address] [address] David Phillips MCHC (RBC) [Mass/Vol] 32.1 g/dL Normal 29.9-35.2 [facility] Comment on above: Performed By: #### D ATCBC #### [facility] [address] [address] [address] David Phillips MCV (RBC) [Entitic vol] 90.5 fL Normal 81.0-99.0 [facility] Comment on above: Performed By: #### D ATCBC #### [facility] [address] [place] [address] Dr. David Phillips MONO # 0.9 103/ul Critically high 0.3-0.8 [facility] Comment on above: Performed By: #### D ATCBC #### [facility] [address] [place] [address] Dr. David Phillips Monocytes/100 WBC (Bld) 7.5 % Normal 1.7-12.0 [facility] Comment on above: Performed By: #### D ATCBC #### [facility] [address] [place] [address] Dr. David Phillips NEUT # 8.8 103/ul Critically high 1.4-6.5 [facility] Comment on above: Performed By: #### D ATCBC #### [facility] [address] [place] [address] Dr. David Phillips Neutrophils/100 WBC (Bld) 77.3 % Critically high 43.0-75.0 [facility] Comment on above: Performed By: #### D ATCBC #### [facility] [address] [place] [address] Dr. David Phillips Platelet mean volume (Bld) [Entitic vol] 8.9 fL Critically low 9.5-13.5 [facility] Comment on above: Performed By: #### D ATCBC #### [facility] [address] [place] [address] Dr. David Phillips PLT 283 103/ul Normal 150-450 [facility] Comment on above: Performed By: #### D ATCBC #### [facility] [address] [place] [address] Dr. David Phillips RBC 4.72 106/ul Normal 4.20-5.40 [facility] Comment on above: Performed By: #### D ATCBC #### [facility] [address] [place] [address] Dr. David Phillips WBC 11.4 103/ul Critically high 4.0-11.0 [facility] Comment on above: Performed By: #### D ATCBC #### [facility] [address] [address] [address] David Phillips BRIANNA- BMP WITH LIPIDon 2021 Anion gap [Moles/Vol] 9.1 mmol/L Normal [facility] Comment on above: Performed By: #### D ATBMP #### [facility] [address] [address] [address] David Phillips Calcium [Mass/Vol] 9.0 mg/dL Normal 8.5-10.1 [facility] Comment on above: Performed By: #### D ATBMP #### [facility] [address] [address] [address] David Phillips Chloride [Moles/Vol] 103 mmol/L Normal 98-107 [facility] Comment on above: Performed By: #### D ATBMP #### [facility] [address] [address] [address] David Phillips Cholesterol [Mass/Vol] 183 mg/dL Normal <=200 [facility] Comment on above: Performed By: #### D ATBMP #### [facility] [address] [address] [address] David Phillips Cholesterol in HDL [Mass/Vol] 75 mg/dL Critically high 40-60 [facility] Comment on above: Performed By: #### D ATBMP #### [facility] [address] [address] [address] David Phillips Cholesterol in LDL [Mass/Vol] 95.2 mg/dL Normal [facility] Comment on above: Performed By: #### D ATBMP #### [facility] [address] [address] [address] David Phillips CO2 [Moles/Vol] 31.1 mmol/L Normal 21.0-32.0 [facility] Comment on above: Performed By: #### D ATBMP #### [facility] [address] [address] [address] David Phillips Creatinine [Mass/Vol] 0.71 mg/dL Normal 0.55-1.02 [facility] Comment on above: Performed By: #### D ATBMP #### [facility] [address] [address] [address] David Phillips EGFR-AF ANDORRAN >60 Normal >=60 [facility] Comment on above: Performed By: #### D ATBMP #### [facility] [address] [address] [address] David Phillips EGFR-NON AF ANDORRAN >60 Normal >=60 [facility] Comment on above: Performed By: #### D ATBMP #### [facility] [address] [address] [address] David Phillips Glucose [Mass/Vol] 108 mg/dL Critically high 74-[address] [facility] Comment on above: Performed By: #### D ATBMP #### [facility] [address] [address] [address] David Phillips HDL NORMAL > or = 60 mg/dl - LO W CARDIOVASCULAR RISK <40 mg/dl - HIGH CARDIOVASCULAR RISK Normal [facility] Comment on above: Performed By: #### D ATBMP #### [facility] [address] [place] [address] Dr. David Phillips LDL CALC NORMAL SEE BELOW Normal [facility] Comment on above: Result Comment: <100 mg/dl OPTIMAL 100 - 129 mg/dl NEAR OR ABOVE OPTIMAL 130 - 159 mg/dl BORDERLINE HIGH 160 - 189 mg/dl HIGH >190 mg/dl VERY HIGH Performed By: #### D ATBMP #### [facility] [address] [place] [address] Dr. David Phillips Potassium [Moles/Vol] 4.2 mmol/L Normal 3.5-5.1 [facility] Comment on above: Performed By: #### D ATBMP #### [facility] [address] [address] [address] David Phillips Sodium [Moles/Vol] 139 mmol/L Normal 136-145 [facility] Comment on above: Performed By: #### D ATBMP #### [facility] [address] [address] [address] David Phillips Triglyceride [Mass/Vol] 64 mg/dL Normal <=150 [facility] Comment on above: Performed By: #### D ATBMP #### [facility] [address] [address] [address] David Phillips Urea nitrogen [Mass/Vol] 15.0 mg/dL Normal 7.0-18.0 [facility] Comment on above: Performed By: #### D ATBMP #### [facility] [address] [address] [address] David Phillips Urea nitrogen/Creatinine [Mass ratio] 21.1 mg/mg Normal [facility] Comment on above: Performed By: #### D ATBMP #### [facility] [address] [address] [address] David Phillips VLDL CALC 12.8 mg/dL Normal [facility] Comment on above: Performed By: #### D ATBMP #### [facility] [address] [place] [address] Dr. David Phillips GLYCOHEMOGLOBIN A1Con 2021 ADA RECOMMENDATION SEE BELOW Normal [facility] Comment on above: Result Comment: ADA RECOMMENDED LIMIT 4.0 - 6.0 ADA THERAPEUTIC TARGET < 7.0 ACTION SUGGESTED > 7.0 Performed By: #### D ATA1C #### [facility] [address] [address] [address] David Phillips Glucose [Mass/Vol] 111 mg/dL Normal [facility] Comment on above: Performed By: #### D ATA1C #### [facility] [address] [address] [address] David Phillips HbA1c (Bld) [Mass fraction] 5.5 % Normal 4.5-6.2 [facility] Comment on above: Performed By: #### D ATA1C #### [facility] [address] [address] [address] David Phillips SGOTon 02-07-2022 AST [Catalytic activity/Vol] 19 U/L Normal 15-37 [facility] Comment on above: Performed By: #### A LT, AST #### [facility] [address] [place] [address] Dr. David Phillips SGPTon 02-07-2022 ALT [Catalytic activity/Vol] 27 U/L Normal 14-59 [facility] Comment on above: Performed By: #### A LT, AST #### [facility] [address] [place] [address] Dr. David Phillips CBC AUTO DIFFon 11-28-2021 BASO # 0.0 103/ul Normal 0.0-0.1 [facility] Comment on above: Performed By: #### D ATCBC #### [facility] [address] [place] [address] Dr. David Phillips Basophils/100 WBC (Bld) 0.1 % Critically low 0.2-2.0 [facility] Comment on above: Performed By: #### D ATCBC #### [facility] [address] [place] [address] Dr. David Phillips EO # 0.0 103/ul Normal 0.0-0.7 [facility] Comment on above: Performed By: #### D ATCBC #### [facility] [address] [place] [address] Dr. David Phillips Eosinophils/100 WBC (Bld) 0.0 % Critically low 0.9-7.0 [facility] Comment on above: Performed By: #### D ATCBC #### [facility] [address] [place] [address] Dr. David Phillips Erythrocyte distribution width (RBC) [Ratio] 13.5 % Normal 11.0-15.0 [facility] Comment on above: Performed By: #### D ATCBC #### [facility] [address] [place] [address] Dr. David Phillips Hematocrit (Bld) [Volume fraction] 41.4 % Normal 36.0-48.0 [facility] Comment on above: Performed By: #### D ATCBC #### [facility] [address] [place] [address] Dr. David Phillips Hemoglobin (Bld) [Mass/Vol] 13.4 g/dL Normal 12.0-16.0 [facility] Comment on above: Performed By: #### D ATCBC #### [facility] [address] [address] [address] David Phillips IG # 0.07 10e3/ul Critically high 0.00-0.03 [facility] Comment on above: Performed By: #### D ATCBC #### [facility] [address] [address] [address] David Phillips IG % 0.5 % Normal 0.0-0.5 [facility] Comment on above: Performed By: #### D ATCBC #### [facility] [address] [place] [address] Dr. David Phillips LYMPH # 1.0 103/ul Critically low 1.2-3.8 [facility] Comment on above: Performed By: #### D ATCBC #### [facility] [address] [place] [address] Dr. David Phillips Lymphocytes/100 WBC (Bld) 7.1 % Critically low 20.5-60.0 [facility] Comment on above: Performed By: #### D ATCBC #### [facility] [address] [place] [address] Dr. David Phillips MCH (RBC) [Entitic mass] 28.8 pg Normal 26.7-34.0 [facility] Comment on above: Performed By: #### D ATCBC #### [facility] [address] [address] [address] David Phillips MCHC (RBC) [Mass/Vol] 32.4 g/dL Normal 29.9-35.2 [facility] Comment on above: Performed By: #### D ATCBC #### [facility] [address] [place] [address] Dr. David Phillips MCV (RBC) [Entitic vol] 88.8 fL Normal 81.0-99.0 [facility] Comment on above: Performed By: #### D ATCBC #### [facility] [address] [place] [address] Dr. David Phillips MONO # 0.3 103/ul Normal 0.3-0.8 [facility] Comment on above: Performed By: #### D ATCBC #### [facility] [address] [place] [address] Dr. David Phillips Monocytes/100 WBC (Bld) 1.9 % Normal 1.7-12.0 [facility] Comment on above: Performed By: #### D ATCBC #### [facility] [address] [place] [address] Dr. David Phillips NEUT # 12.9 103/ul Critically high 1.4-6.5 [facility] Comment on above: Performed By: #### D ATCBC #### [facility] [address] [place] [address] Dr. David Phillips Neutrophils/100 WBC (Bld) 90.4 % Critically high 43.0-75.0 [facility] Comment on above: Performed By: #### D ATCBC #### [facility] [address] [place] [address] Dr. David Phillips Platelet mean volume (Bld) [Entitic vol] 9.1 fL Critically low 9.5-13.5 [facility] Comment on above: Performed By: #### D ATCBC #### [facility] [address] [place] [address] Dr. David Phillips PLT 296 103/ul Normal 150-450 [facility] Comment on above: Performed By: #### D ATCBC #### [facility] [address] [place] [address] Dr. David Phillips RBC 4.66 106/ul Normal 4.20-5.40 [facility] Comment on above: Performed By: #### D ATCBC #### [facility] [address] [place] [address] Dr. David Phillips WBC 14.3 103/ul Critically high 4.0-11.0 [facility] Comment on above: Performed By: #### D ATCBC #### [facility] [address] [place] [address] Dr. David Phillips BRIANNA- BMP WITH LIPIDon 2021 Anion gap [Moles/Vol] 13.2 mmol/L Normal [facility] Comment on above: Performed By: #### D ATBMP #### [facility] [address] [address] [address] David Phillips Calcium [Mass/Vol] 9.0 mg/dL Normal 8.5-10.1 [facility] Comment on above: Performed By: #### D ATBMP #### [facility] [address] [address] [address] David Phillips Chloride [Moles/Vol] 105 mmol/L Normal 98-107 [facility] Comment on above: Performed By: #### D ATBMP #### [facility] [address] [address] [address] David Phillips Cholesterol [Mass/Vol] 191 mg/dL Normal <=200 [facility] Comment on above: Performed By: #### D ATBMP #### [facility] [address] [address] [address] David Phillips Cholesterol in HDL [Mass/Vol] 71 mg/dL Critically high 40-60 [facility] Comment on above: Performed By: #### D ATBMP #### [facility] [address] [address] [address] David Phillips Cholesterol in LDL [Mass/Vol] 107.4 mg/dL Normal [facility] Comment on above: Performed By: #### D ATBMP #### [facility] [address] [address] [address] David Phillips CO2 [Moles/Vol] 28.7 mmol/L Normal 21.0-32.0 [facility] Comment on above: Performed By: #### D ATBMP #### [facility] [address] [address] [address] David Phillips Creatinine [Mass/Vol] 0.62 mg/dL Normal 0.55-1.02 [facility] Comment on above: Performed By: #### D ATBMP #### [facility] [address] [address] [address] David Phillips EGFR-AF ANDORRAN >60 Normal >=60 [facility] Comment on above: Performed By: #### D ATBMP #### [facility] [address] [address] [address] David Phillips EGFR-NON AF ANDORRAN >60 Normal >=60 [facility] Comment on above: Performed By: #### D ATBMP #### [facility] [address] [address] [address] David Phillips Glucose [Mass/Vol] 128 mg/dL Critically high 74-[address] [facility] Comment on above: Performed By: #### D ATBMP #### [facility] [address] [address] [address] David Phillips HDL NORMAL > or = 60 mg/dl - LO W CARDIOVASCULAR RISK <40 mg/dl - HIGH CARDIOVASCULAR RISK Normal [facility] Comment on above: Performed By: #### D ATBMP #### [facility] [address] [address] [address] David Phillips LDL CALC NORMAL SEE BELOW Normal [facility] Comment on above: Result Comment: <100 mg/dl OPTIMAL 100 - 129 mg/dl NEAR OR ABOVE OPTIMAL 130 - 159 mg/dl BORDERLINE HIGH 160 - 189 mg/dl HIGH >190 mg/dl VERY HIGH Performed By: #### D ATBMP #### [facility] [address] [address] [address] David Phillips Potassium [Moles/Vol] 3.9 mmol/L Normal 3.5-5.1 [facility] Comment on above: Performed By: #### D ATBMP #### [facility] [address] [address] [address] David Phillips Sodium [Moles/Vol] 143 mmol/L Normal 136-145 [facility] Comment on above: Performed By: #### D ATBMP #### [facility] [address] [address] [address] David Phillips Triglyceride [Mass/Vol] 63 mg/dL Normal <=150 [facility] Comment on above: Performed By: #### D ATBMP #### [facility] [address] [address] [address] David Phillips Urea nitrogen [Mass/Vol] 15.0 mg/dL Normal 7.0-18.0 [facility] Comment on above: Performed By: #### D ATBMP #### [facility] [address] [address] [address] David Phillips Urea nitrogen/Creatinine [Mass ratio] 24.2 mg/mg Normal [facility] Comment on above: Performed By: #### D ATBMP #### [facility] [address] [address] [address] David Phillips VLDL CALC 12.6 mg/dL Normal [facility] Comment on above: Performed By: #### D ATBMP #### [facility] [address] [place] [address] Dr. David Phillips GLYCOHEMOGLOBIN A1Con 2021 ADA RECOMMENDATION SEE BELOW Normal [facility] Comment on above: Result Comment: ADA RECOMMENDED LIMIT 4.0 - 6.0 ADA THERAPEUTIC TARGET < 7.0 ACTION SUGGESTED > 7.0 Performed By: #### D ATCBC #### [facility] [address] [place] [address] Dr. David Phillips Glucose [Mass/Vol] 105 mg/dL Normal [facility] Comment on above: Performed By: #### D ATCBC #### [facility] [address] [place] [address] Dr. David Phillips HbA1c (Bld) [Mass fraction] 5.3 % Normal 4.5-6.2 [facility] Comment on above: Performed By: #### D ATCBC #### [facility] [address] [place] [address] Dr. David Phillips SCREENING MAMMOGRAM W/GAIL, BILATERAL*on 06-11-2021 SCREENING MAMMOGRAM W/GAIL, BILATERAL* CLINICAL HISTORY: Screening Mammogram COMPARISON: Priors from 2020, 2017, 2016, 2016 TECHNIQUE: 2D and 3D mammogram imaging of both breasts was performed. RESULT: DENSITY: There are scattered areas of fibroglandular density. There is no suspicious mass, asymmetry, architectural distortion, or calcification. No significant change since the prior mammograms. IMPRESSION: BIRADS 1 : NEGATIVE, NORMAL INTERVAL FOLLOW UP FOLLOW-UP: 12 months DENSITY: Scattered MAMMOGRAPHY IS VERY IMPORTANT TO YOUR HEALTH. THE CURRENT [employer] AND [employer] GUIDELINES RECOMMENDS ANNUAL MAMMOGRAPHY BEGINNING AT AGE 40 THIS FACILITY USES A REMINDER SYSTEM TO ENSURE ALL PATIENTS RECEIVE REMINDER NOTIFICATIONS AT THE APPROPRIATE TIME BASED ON THE RECOMMENDATIONS OF THIS EXAM. Board Certified Radiologist. Accredited by the ACR and FDA. Report reported and signed by Trell Martin on 06/11/2021 1236 Normal [facility] Ward Clerk LARGE JOINT/BURSA INJECTION AND/OR ASPIRATION: R hip [...] fashion. The patient was prepped with Chloraprep. 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 [facility] X-rays, weightbearin g AP pelvis [...] sacroiliac joints demonstrate moderate evidence of osteoarthrosis. [facility] CBCon 02-25-2018 ABSOLUTE BAS 0.0 X10 Normal [facility] ABSOLUTE EOS 0.10 X10 Normal [facility] ABSOLUTE NEUTROPHIL COUNT 4.5 x10 Normal 1.0-7.0 [facility] Basophils/100 WBC Auto (Bld) 0.7 % Normal 0.0-2.0 [facility] DTYPE AUTO DIFF Normal [facility] Eosinophils/100 WBC Auto (Bld) 1.9 % Normal 0.0-11.0 [facility] Lymphocytes Auto #/vol (Bld) 1.80 X10 Normal [facility] Lymphocytes/100 WBC Auto (Bld) 25.1 % Normal 20.0-55.0 [facility] Monocytes Auto #/vol (Bld) 0.6 X10 Normal [facility] Monocytes/100 WBC Auto (Bld) 8.3 % Normal 0.0-10.0 [facility] Neutrophils/100 WBC Auto (Bld) 64.0 % Normal 37.0-75.0 [facility] Erythrocyte distribution width Auto Ratio (RBC) 13.4 % Normal 11.5-14.5 [facility] Hematocrit Auto Volume Fraction (Bld) 39.9 % Normal 36.0-48.0 [facility] Hemoglobin mass conc (Bld) 13.4 g/dL Normal 12.0-16.0 [facility] MCH Auto Entitic mass (RBC) 28.7 pg Normal 26.0-35.0 [facility] MCHC Auto mass conc (RBC) 33.5 g/dL Normal 27.0-37.0 [facility] MCV Auto Entitic volume (RBC) 85.7 fL Normal 80.0-100.0 [facility] Platelet mean volume Auto Entitic volume (Bld) 7.3 fL Low 7.4-11.0 [facility] Platelets Auto #/vol (Bld) 329 /cmm Normal 130.0-400. 0 [facility] RBC Auto #/vol (Bld) 4.66 /cmm Normal 4.0-5.4 [facility] WBC Auto #/vol (Bld) 7.0 /cmm Normal 3.6-11.0 [facility] CHEMISTRY, [facility] ALT enzyme act/vol 30 U/L Normal 9-52 [facility] Calcium mass conc 9.3 mg/dL Normal 8.4-10.2 [facility] Cholesterol in HDL mass conc 49 mg/dL Normal 33-75 [facility] Cholesterol in LDL mass conc 91 MG/DL Normal [facility] Cholesterol in VLDL mass conc 22 mg/dL Normal 5.0-25 [facility] Cholesterol mass conc 162 mg/dL Normal 107-217 [facility] Cholesterol.total/C holesterol in HDL mass ratio 3.31 {ratio} Normal [facility] Comment on above: Result Comment: RISK TOTAL/HDL RATIO MEN WOMEN1/2 AVERAGE 3.43 3.27AVERAGE 4.97 4.442X AVERAGE 9.55 7.053X AVERAGE 23.99 11.04 Creatinine mass conc 0.6 mg/dL Low 0.7-1.2 [facility] EST. GFR, >60 Normal [facility] EST. GFR,Non >60 Normal [facility] Gamma glutamyl transferase [Enzymatic activity/volume] in Serum or Plasma 18 IU/L Normal 12-43 [facility] GFR/1.73 sq M predicted among non-blacks MDRD vol rate/area (S/P/Bld) Average GFR for 60-69 years old = 85. Normal [facility] Comment on above: Result Comment: Electrical Instrumentation Technician karime Kidney disease, GFR = <60.Kidney failure, GFR = <15.The GFR estimate is not adjusted for extreme body surface area or acute process, nor has it been validated for women or ethnic groups other than and . Glucose mass conc 92 mg/dL Normal 70-100 [facility] Comment on above: Result Comment: NORM AL <100 mg/dLPREDIABETES 101-126 mg/dLDIABETES 126 mg/dL or higher Potassium molar conc 4.3 mmol/L Normal 3.5-5.1 [facility] Sodium molar conc 142 mmol/L Normal 137-145 [facility] Triglyceride mass conc 111 mg/dL Normal 0-150 [facility] Urea nitrogen mass conc (Bld) 17 mg/dL Normal 7-20 [facility] HEMOGLOBIN A1Con 02-25-2018 Glucose mass conc 105 mg/dL Normal [facility] Hemoglobin A1c/Hemoglobin.tota l mass fraction (Bld) 5.3 % Normal 0-6 [facility] Comment on above: Result Comment: NORM AL <5.7%PREDIABETES 5.7-6.4%DIABETES 6.5% OR HIGHER WRISTon 12-05-2017 WRIST Final ReportAccession No: [id number] Performed: Dec 05 2017 11:45AMExamination: RIGHT [...] GARY BLANCO D.O.Trans: abond : cc: Normal [facility] WRISTon 11-07-2017 WRIST Final ReportAccession No: [id number] Performed: Nov 07 2017 9:58AMExamination: RIGHT [...] Physician: MADIE LORENZO M.D.Trans: lcoope : cc: [facility] XR WRIST RIGHT 3+ VIEWS (STA NDARD)on [...] angulation.Distal ulna intact.Carpal bones appear well positioned. Zlgy-da-lihjpvsk arthritic changes seen of proximal carpal row, greatest laterally.IMPRESSION:1. Healing distal radial nondisplaced nonarticular transverse fracture now seen.2. Chronic gtsf-wr-rifizzdl arthritic changes, greatest involving lateral carpal joints.ARR/trnWorkstation ID: [id number] by: ANDREZ ECHAVARRIA on FriOct 09, 2017 7:30:06 AM EDTTranscribed by: LANI EDWARDS on FriOct 09, 2017 9:26:53 AM EDTFinalized by: ANDREZ ECHAVARRIA on FriOct 09, 2017 4:08:57 PM EDT [facility] Comment on above: Order Comment: Reaso n for exam?:rt wrist painInjury/Trauma or Illness?:Injury/TraumaHow long have you had these symptoms (acute/chronic)?:AcuteHistory of cancer?:unkSurgeries, chemotherapy, or radiation?:carpal tunnelType of Exam?:Subsequent/Follow-upMechanism of injury?:fall XR WRIST RIGHT 3 VIEWSon XR WRIST RIGHT 3 VIEWS EXAMINATION: XR WRIST RIGHT 3 VIEWS [id number] CLINICAL HISTORY: 61-year-old female with history of fall swelling right posterior wristFINDINGS/IMPRESSION: Comparison: Compared to none available.No definite acute fracture or malalignment of the right wrist.Focal soft tissue swelling dorsally is seen at the level of the carpal metacarpal articulation. No pathologic calcifications. Blunted appearance of the ulnar styloid could relate to remote trauma. Normal [facility] Mammogramvicky 11-07-2016 Mammogram Patient Name: Fe YIN : [id number]: [id number] Date: [id number] #: [id number] Class: OPhysician: Conchis COUCH Physician: , Study [...] results.The National Comprehensive Cancer Network and the [employer] recommend annual screening mammograms for women age 40 and older.Dictated: Isidro Morrison 11/07/2016 15:09Transcribed: Isidro Morrison 11/07/2016 15:11Electronically Signed: Isidro Morrison 11/07/2016 15:11[facility] [facility] [email or web address].[place], [place] [address] [email or web address] Vital Signs Date Time Vital Sign Value Performing Clinician Facility 01-05-2024 11:50-0400 Diastolic blood pressure 60 mm[Hg] DO Karen Cardoso Work Phone: [facility] 01-05-2024 11:50-0400 Heart rate 88 /min DO Karen Cardoso Work Phone: [facility] 01-05-2024 11:50-0400 Respiratory rate 16 /min DO Karen Cardoso Work Phone: [facility] 01-05-2024 11:50-0400 SaO2% (BldA) [Mass fraction] 96 % DO Karen Cardoso Work Phone: [facility] 01-05-2024 11:50-0400 Systolic blood pressure 114 mm[Hg] DO Karen Cardoso Work Phone: [facility] 01-05-2024 11:20-0400 Inhaled oxygen flow rate 1 L/min DO Karen Cardoso Work Phone: [facility] 01-05-2024 11:00-0400 Body temperature 98 [degF] DO Karen Cardoso Work Phone: [facility] 01-05-2024 06:20-0400 Body height 165.1 cm DO Karen Cardoso Work Phone: [facility] 01-05-2024 06:20-0400 Body weight 70 kg DO Karen Cardoso Work Phone: [facility] 12-25-2023 14:27-0400 Body height 165.1 cm DO Karen Serranosrinivas Work Phone: [facility] 12-25-2023 14:27-0400 Body mass index (BMI) [Ratio] 25.7 kg/m2 DO Karen Cardoso Work Phone: [facility] 12-25-2023 14:27-0400 Body weight 70 kg DO Karen Cardoso Work Phone: [facility] 12-12-2023 09:09-0400 Body height 165.1 cm DO Karen Cardoso Work Phone: [facility] 12-12-2023 09:09-0400 Body mass index (BMI) [Ratio] 25.7 kg/m2 DO Karen Cardoso Work Phone: [facility] 12-12-2023 09:09-0400 Body temperature 97.4 [degF] DO Karen Cardoso Work Phone: [facility] 12-12-2023 09:09-0400 Body weight 70.3 kg DO Karen Cardoso Work Phone: [facility] 12-12-2023 09:09-0400 Diastolic blood pressure 76 mm[Hg] DO Karen Cardoso Work Phone: [facility] 12-12-2023 09:09-0400 Heart rate 76 /min DO Karen Cardoso Work Phone: [facility] 12-12-2023 09:09-0400 Respiratory rate 16 /min DO Karen Cadroso Work Phone: [facility] 12-12-2023 09:09-0400 SaO2% (BldA) [Mass fraction] 98 % DO Karen Cardoso Work Phone: [facility] 12-12-2023 09:09-0400 Systolic blood pressure 130 mm[Hg] DO Karen Cardoso Work Phone: [facility] 09-15-2023 13:54-0400 Body height 165.1 cm DO Karen Cardoso Work Phone: [facility] 09-15-2023 13:54-0400 Body mass index (BMI) [Ratio] 26.1 kg/m2 DO Karen Girsrinivas Work Phone: [facility] 09-15-2023 13:54-0400 Body temperature 97.3 [degF] DO Karen Girsrinivas Work Phone: [facility] 09-15-2023 13:54-0400 Body weight 71.21 kg DO Karen Girsrinivas Work Phone: [facility] 09-15-2023 13:54-0400 Diastolic blood pressure 78 mm[Hg] DO Karen Cardoso Work Phone: [facility] 09-15-2023 13:54-0400 Heart rate 81 /min DO Karen Cardoso Work Phone: [facility] 09-15-2023 13:54-0400 SaO2% (BldA) [Mass fraction] 97 % DO Karen Cardoso Work Phone: [facility] 09-15-2023 13:54-0400 Systolic blood pressure 118 mm[Hg] DO Karen Cardoso Work Phone: [facility] 06-26-2023 09:10-0500 Body height 165.1 cm DO Karen Cardoso Work Phone: [facility] 06-26-2023 09:10-0500 Body mass index (BMI) [Ratio] 26.6 kg/m2 DO Karen Cardoso Work Phone: [facility] 06-26-2023 09:10-0500 Body temperature 97.9 [degF] DO Karen Cardoso Work Phone: [facility] 06-26-2023 09:10-0500 Body weight 72.8 kg DO Karen Cardoso Work Phone: [facility] 06-26-2023 09:10-0500 Diastolic blood pressure 78 mm[Hg] DO Karen Girsrinivas Work Phone: [facility] 06-26-2023 09:10-0500 Heart rate 91 /min DO Karen Cardoso Work Phone: [facility] 06-26-2023 09:10-0500 Respiratory rate 18 /min DO Karen Cardoso Work Phone: [facility] 06-26-2023 09:10-0500 SaO2% (BldA) [Mass fraction] 98 % DO Karen Cardoso Work Phone: [facility] 06-26-2023 09:10-0500 Systolic blood pressure 128 mm[Hg] DO Karen Cardoso Work Phone: [facility] 06-13-2023 09:14-0500 Body height 165.1 cm DO Karen Cardoso Work Phone: [facility] 06-13-2023 09:14-0500 Body mass index (BMI) [Ratio] 26.1 kg/m2 DO Karen Cardoso Work Phone: [facility] 06-13-2023 09:14-0500 Body weight 71.21 kg DO Karen Cardoso Work Phone: [facility] 05-14-2023 08:15-0500 Body height 165.1 cm Finn Ortez II Other [facility] 12-12-2022 09:10-0400 Body height 165.1 cm Karen Cardoso Other [facility] [employer] Other 12-12-2022 09:10-0400 Body mass index (BMI) [Ratio] 27.12 kg/m2 Karen Cardoso Other [employer] Other 12-12-2022 09:10-0400 Body temperature 98.6 [degF] Karen Cardoso Other [employer] Other 12-12-2022 09:10-0400 Body weight 73.94 kg Karen Cardoso Other [employer] Other 12-12-2022 09:10-0400 Diastolic blood pressure 78 mm[Hg] Karen Cardoso Other [employer] Other 12-12-2022 09:10-0400 Respiratory rate 18 /min Karen Cardoso Other [employer] Other 12-12-2022 09:10-0400 SaO2% (BldA) [Mass fraction] 96 % Karen Cardoso Other [employer] Other 12-12-2022 09:10-0400 Systolic blood pressure 124 mm[Hg] Karen Cardoso Other [employer] Other 07-12-2022 11:00-0400 Body height 165.1 cm Finn [facility] Other [employer] Other 07-12-2022 11:00-0400 Body mass index (BMI) [Ratio] 26.62 kg/m2 Finn Irvine II Other [employer] Other 07-12-2022 11:00-0400 Body weight 72.58 kg Finn Irvine II Other [employer] Other 06-13-2022 09:10-0500 Body height 165.1 cm Karen Cardoso Other [employer] Other 06-13-2022 09:10-0500 Body mass index (BMI) [Ratio] 27.29 kg/m2 Karen Cardoso Other [employer] Other 06-13-2022 09:10-0500 Body weight 74.39 kg Karen Cardoso Other [employer] Other 06-13-2022 09:10-0500 Diastolic blood pressure 80 mm[Hg] Karen Cardoso Other [employer] Other 06-13-2022 09:10-0500 Respiratory rate 18 /min Karen Cardoso Other [employer] Other 06-13-2022 09:10-0500 SaO2% (BldA) [Mass fraction] 98 % Karen Cardoso Other [employer] Other 06-13-2022 09:10-0500 Systolic blood pressure 132 mm[Hg] Karen Cardoso Other [employer] Other 02-12-2022 10:50-0400 Body height 165.1 cm Karen Cardoso Other [employer] Other 12-06-2021 11:30-0400 Body height 165.1 cm Karen Cardoso Other [employer] Other 12-06-2021 11:30-0400 Body mass index (BMI) [Ratio] 25.62 kg/m2 Karen Cardoso Other [employer] Other 12-06-2021 11:30-0400 Body temperature 97.6 [degF] Karen Cardoso Other [employer] Other 12-06-2021 11:30-0400 Body weight 69.85 kg Karen Cardoso Other [employer] Other 12-06-2021 11:30-0400 Diastolic blood pressure 82 mm[Hg] Karen Cardoso Other [employer] Other 12-06-2021 11:30-0400 Respiratory rate 16 /min Karen Cardoso Other [employer] Other 12-06-2021 11:30-0400 SaO2% (BldA) [Mass fraction] 96 % Karen Cardoso Other [employer] Other 12-06-2021 11:30-0400 Systolic blood pressure 122 mm[Hg] Karen Cardoso Other [employer] Other 05-23-2020 09:12-0500 BMI (Body Mass Index) 28.06 kg/m2 [facility] 05-23-2020 09:12-0500 Body weight 76.48 kg [facility] 05-23-2020 09:12-0500 Height 165.1 cm [facility] 05-02-2020 12:42-0500 BMI (Body Mass Index) 28.36 kg/m2 [facility] 05-02-2020 12:42-0500 Body weight 77.29 kg [facility] 05-02-2020 12:42-0500 Height 165.1 cm [facility] 04-29-2020 14:49-0500 Body surface area Derived from formula 1.8 m2 [facility] 04-27-2020 08:58-0500 BMI (Body Mass Index) 26.63 kg/m2 [facility] 04-27-2020 08:58-0500 Body weight 72.58 kg [facility] 04-27-2020 08:58-0500 Height 165.1 cm [facility] 07-27-2018 08:54-0400 BMI (Body Mass Index) 26.48 kg/m2 [facility] 07-27-2018 08:54-0400 Body Temperature 98.49 [degF] [facility] 07-27-2018 08:54-0400 Body weight 73.85 kg [facility] 07-27-2018 08:54-0400 BP Diastolic 60 mm[Hg] [facility] 07-27-2018 08:54-0400 BP Systolic 110 mm[Hg] [facility] 07-27-2018 08:54-0400 Height 167 [facility] 07-27-2018 08:54-0400 Pulse (Heart Rate) 65 /min [facility] 07-27-2018 08:54-0400 Pulse Oximetry 96 % [facility] 07-27-2018 08:54-0400 Respiratory Rate 16 /min [facility] 05-11-2018 15:19-0500 BMI (Body Mass Index) 26.57 kg/m2 [facility] Work Phone: 05-11-2018 15:19-0500 Body Temperature 97.3 [degF] [facility] Work Phone: 05-11-2018 15:19-0500 BP Diastolic 68 mm[Hg] [facility] Work Phone: 05-11-2018 15:19-0500 BP Systolic 118 mm[Hg] [facility] Work Phone: 05-11-2018 15:19-0500 Height 167 cm [facility] Work Phone: 05-11-2018 15:19-0500 Pulse (Heart Rate) 73 /min [facility] Work Phone: 05-11-2018 15:19-0500 Pulse Oximetry 97 % [facility] Work Phone: 05-11-2018 15:19-0500 Respiratory Rate 16 /min [facility] Work Phone: 05-11-2018 15:19-0500 Weight 74.12 kg [facility] Work Phone: 03-30-2018 13:16-0500 BMI (Body Mass Index) 26.7 kg/m2 [facility] Work Phone: 03-30-2018 13:16-0500 Body Temperature 97.7 [degF] [facility] Work Phone: 03-30-2018 13:16-0500 BP Diastolic 58 mm[Hg] [facility] Work Phone: 03-30-2018 13:16-0500 BP Systolic 116 mm[Hg] [facility] Work Phone: 03-30-2018 13:16-0500 Height 167 cm [facility] Work Phone: 03-30-2018 13:16-0500 Pulse (Heart Rate) 66 /min [facility] Work Phone: 03-30-2018 13:16-0500 Pulse Oximetry 97 % [facility] Work Phone: 03-30-2018 13:16-0500 Respiratory Rate 16 /min [facility] Work Phone: 03-30-2018 13:16-0500 Weight 74.48 kg [facility] Work Phone: 12-05-2017 11:24-0400 BMI (Body Mass Index) 26.61 kg/m2 [facility] 12-05-2017 11:24-0400 BP Diastolic 78 mm[Hg] [facility] 12-05-2017 11:24-0400 BP Systolic 130 mm[Hg] [facility] 12-05-2017 11:24-0400 Height 162.6 cm [facility] 12-05-2017 11:24-0400 Pulse (Heart Rate) 57 /min [facility] 12-05-2017 11:24-0400 Weight 70.31 kg [facility] 11-07-2017 09:44-0400 BMI (Body Mass Index) 26.61 kg/m2 [facility] 11-07-2017 09:44-0400 Height 162.6 cm [facility] 11-07-2017 09:44-0400 Weight 70.31 kg [facility] 10-08-2017 14:41-0400 BMI (Body Mass Index) 26.61 kg/m2 [facility] 10-08-2017 14:41-0400 Height 162.6 cm [facility] 10-08-2017 14:41-0400 Weight 70.31 kg [facility] Encounters Encounter Date Encounter Type Care Provider Facility Start: 05-20-2024 End: 05-20-2024 Patient encounter procedure [facility] ARANA Comment on above: Sensorineural hearin g loss, bilateral (Primary Dx) Start: 05-20-2024 End: 05-20-2024 ambulatory SHERYL COOPER Not Available Start: 05-18-2024 ambulatory Floyd Garza acility:[facility] Start: 05-04-2024 End: 05-04-2024 Bamboo flowsheet Sheryl Cooper CCC-A Work Phone: [facility] Start: 05-04-2024 End: 05-04-2024 Bamboo flowsheet Sheryl Cooper CCC-A Work Phone: [facility] Start: 05-04-2024 End: 05-04-2024 Clinical Support Sheryl Cooper CCC-A Work Phone: [facility] Comment on above: Sensorineural hearin g loss, bilateral (Primary Dx) Start: 05-04-2024 End: 05-04-2024 ambulatory SHERYL COOPER Not Available Start: 04-07-2024 End: 04-07-2024 ambulatory Finn Ortez II Facility:[facility] Start: 02-24-2024 End: 02-24-2024 ambulatory DO Karen Cardoso Work Phone: [facility] Work Phone: Start: 02-24-2024 End: 02-24-2024 Patient encounter procedure DO Karen Cardoso Work Phone: [facility] Work Phone: Start: 02-10-2024 Registered Recurring DO Karen Cardoso Work Phone: [facility] Start: 02-05-2024 Non-patient / Non-visit DO Saurabh id Girvin [facility] Work Phone: Start: 01-21-2024 End: 01-21-2024 ambulatory DO Karen Cardoso Work Phone: [facility] Work Phone: Start: 01-21-2024 End: 01-21-2024 Patient encounter procedure DO Karen Cardoso Work Phone: [facility] Work Phone: Start: 01-05-2024 Non-patient / Non-visit DO Saurabh id Girsrinivas Work Phone: [facility] Work Phone: Start: 01-05-2024 End: 01-05-2024 Admission to same day surgery center DO [facility] [place] Start: 01-05-2024 End: 01-05-2024 ambulatory DO Karen Cardoso Work Phone: [facility] Work Phone: Start: 12-30-2023 Registered Recurring DO Karen Cardoso Work Phone: [facility] Start: 12-26-2023 End: 12-26-2023 ambulatory DO Karen Cardoso Work Phone: [facility] Work Phone: Start: 12-26-2023 End: 12-26-2023 Patient encounter procedure DO Karen Serranosrinivas Work Phone: [facility] Work Phone: Start: 12-25-2023 End: 12-25-2023 Patient encounter procedure DO Karen Serranosrinivas Work Phone: [facility] Work Phone: Start: 12-25-2023 Registered Recurring DO Karen Serranosrinivas Work Phone: [facility]-Physical Therapy [place] Start: 12-25-2023 End: 12-25-2023 ambulatory DO Karen Serranosrinivas Work Phone: [facility] Work Phone: Start: 12-22-2023 End: 12-22-2023 Patient encounter procedure DO Karen Serranosrinivas Work Phone: [facility]-Pre-Surgical Testing Work Phone: Start: 12-22-2023 End: 12-22-2023 ambulatory DO Karen Serranosrinivas Work Phone: [facility] Work Phone: Start: 12-22-2023 Encounter for preprocedural laboratory examination Finn Ortez II [facility] Start: 12-19-2023 Non-patient / Non-visit DO Saurabh id Walker Work Phone: [facility] Work Phone: Start: 12-19-2023 Non-patient / Non-visit DO Saurabh id Girvin Work Phone: [facility] Work Phone: Start: 12-12-2023 Patient encounter status DO Da roel Cardoso Work Phone: [facility] Start: 12-12-2023 End: 12-12-2023 ambulatory DO Karen Cardoso Work Phone: [facility] Work Phone: Start: 12-12-2023 End: 12-12-2023 Patient encounter procedure DO Karen Cardoso Work Phone: [facility] [place] Work Phone: Start: 12-06-2023 Non-patient / Non-visit DO Saurabh Cardoso Work Phone: [facility] Work Phone: Start: 11-20-2023 Registered Recurring DO Karen Cardoso Work Phone: [facility] Start: 11-19-2023 End: 11-19-2023 Patient encounter procedure DO Karen Cardoso Work Phone: [facility] Start: 11-19-2023 End: 11-19-2023 ambulatory DO Karen Cardoso Work Phone: [facility] Work Phone: Start: 11-19-2023 End: 11-19-2023 ambulatory DO Karen Cardoso Work Phone: [facility] Work Phone: Start: 11-19-2023 End: 11-19-2023 Patient encounter procedure DO Karen Cardoso Work Phone: [facility] Work Phone: Start: 11-11-2023 Registered Recurring DO Karen Cardoso Work Phone: [facility] Start: 11-05-2023 End: 11-05-2023 ambulatory SHERYL COOPER Not Available Start: 09-18-2023 End: 09-18-2023 ambulatory DO Karen Cardoso Work Phone: [facility] Work Phone: Start: 09-18-2023 End: 09-18-2023 Patient encounter procedure DO Karen Cardoso Work Phone: [facility] Work Phone: Start: 09-15-2023 End: 09-15-2023 Patient encounter procedure DO Karen Cardoso Work Phone: [facility] [place] Work Phone: Start: 09-15-2023 End: 09-15-2023 ambulatory DO Karen Cardoso Work Phone: [facility] Work Phone: Start: 09-15-2023 End: 09-15-2023 Departed Referred DO Karen Cardoso Work Phone: [facility] [place] Work Phone: Start: 09-09-2023 End: 09-09-2023 ambulatory ANGELA Arash LINDA Not Available Start: 09-09-2023 End: 09-09-2023 ambulatory TERRANCE S WOODARD Not Available Start: 08-29-2023 End: 08-29-2023 ambulatory NICOLE J NATAPRAWIRA Not Available Start: 08-20-2023 End: 08-20-2023 ambulatory TERRANCE S WOODARD Not Available Start: 07-24-2023 End: 07-24-2023 ambulatory NICOLE J NATAPRAWIRA Not Available Start: 07-10-2023 End: 07-10-2023 ambulatory TERRANCE S WOODARD Not Available Start: 06-26-2023 End: 06-26-2023 Patient encounter procedure DO Karen Cardoso Work Phone: [facility] [place] Work Phone: Start: 06-25-2023 End: 06-25-2023 ambulatory MILAGROS LAI Not Available Start: 06-23-2023 Registered Recurring DO Karen Cardoso Work Phone: [facility] Start: 06-23-2023 Non-patient / Non-visit DO Saurabh Cardoso Work Phone: [facility] Work Phone: Start: 06-16-2023 End: 06-16-2023 ambulatory SHERYLREFUGIO COOPER Not Available Start: 06-13-2023 End: 06-13-2023 ambulatory DO Karen Cardoso Work Phone: [facility] Work Phone: Start: 06-13-2023 End: 06-13-2023 Patient encounter procedure DO Karen Cardoso Work Phone: [facility] Work Phone: Start: 05-14-2023 End: 05-14-2023 ambulatory Finn Irvine II Other [employer] Other Start: 05-14-2023 Office outpatient vi sit 15 minutes Finn Irvine II [facility] Start: 05-14-2023 End: 05-14-2023 Patient encounter procedure DO Karen Cardoso Work Phone: [facility]- Start: 04-15-2023 End: 04-15-2023 ambulatory Karen Cardoso Other [employer] Other Start: 04-15-2023 Telephone encounter Karen Cardoso [facility] [place] Start: 03-18-2023 Registered Recurring DO Karen Cardoso Work Phone: [facility] Start: 01-09-2023 End: 01-09-2023 ambulatory Karen Cradoso Other [employer] Other Start: 01-09-2023 Telephone encounter Karen Cardoso [facility] [place] Start: 12-17-2022 End: 12-17-2022 ambulatory Karen Cardoso Other [employer] Other Start: 12-17-2022 Telephone encounter Karen Cardoso [facility] [place] Start: 12-13-2022 End: 12-13-2022 ambulatory Karen Cardoso Other [employer] Other Start: 12-13-2022 Telephone encounter Karen Cardoso [facility] [place] Start: 12-12-2022 End: 12-12-2022 ambulatory Karen Cardoso Other [employer] Other Start: 12-12-2022 Office outpatient vi sit 25 minutes Karen Cardoso [facility] [place] Start: 09-02-2022 End: 09-02-2022 ambulatory Karen Cardoso Other [employer] Other Start: 09-02-2022 Telephone encounter Karen Cardoso [facility] [place] Start: 08-27-2022 End: 08-27-[address] KAREN CARDOSO Facility: Start: 08-01-2022 End: 08-01-2022 ambulatory Karen Cardoso Other [employer] Other Start: 08-01-2022 Telephone encounter Karen Cardoso [facility] [place] Start: 07-18-2022 End: 07-18-2022 ambulatory Finn Dalalisle II Other [employer] Other Start: 07-18-2022 Telephone encounter Finn Shultzle II [facility] Orthopedics Start: 07-12-2022 FQHC visit new patient Finn Shultz le II [facility] Start: 07-12-2022 End: 07-12-2022 ambulatory DO Karen Cardoso Work Phone: [facility] Work Phone: Start: 07-12-2022 End: 07-12-2022 Patient encounter procedure DO Karen Cardoso Work Phone: [facility] Start: 06-13-2022 End: 06-13-2022 ambulatory Karen Cardoso Other [facility] Other Start: 06-13-2022 Office outpatient vi sit 15 minutes Karen Cardoso [facility] [place] Start: 03-12-2022 Telephone encounter Karen Cardoso [facility] [place] Start: 03-12-2022 End: 03-13-2022 ambulatory NONE LISTED REQUEST [facility] Other Start: 03-06-2022 End: 03-06-2022 ambulatory Karen Cardoos Other [facility] Other Start: 03-06-2022 Telephone encounter Karen Cardoso [facility] [place] Start: 02-12-2022 End: 02-12-2022 ambulatory Karen Cardoso Other [facility] Other Start: 02-12-2022 Telephone encounter Karen Cardoso [facility] [place] Start: 02-07-2022 Telephone encounter Karen Cardoso [facility] [place] Start: 02-07-2022 End: 02-08-[address] KAREN CRADOSO [facility] Other Start: 12-06-2021 End: 12-06-2021 ambulatory Karen Cardoso Other [facility] Other Start: 12-06-2021 Office outpatient vi sit 25 minutes Karen Cardoso [facility] [place] Start: 12-03-2021 End: 12-03-2021 ambulatory Karen Cardoso Other [facility] Other Start: 12-03-2021 Telephone encounter Karen Cardoso [facility] [place] Start: 11-28-2021 End: 11-29-2021 ambulatory NONE LISTED REQUEST Facility: Start: 02-06-2021 End: 02-10-2021 ambulatory KAREN CARDOSO [facility] Start: 06-05-2020 End: 06-05-2020 Orders Only Annmarie Xavier Work Phone: [facility] Start: 05-23-2020 End: 05-23-2020 Office outpatient visit 15 minutes Chito Land Work Phone: [facility] Comment on above: Primary osteoarthrit is of right hip (Primary Dx); Greater trochanteric bursitis of right hip Start: 05-02-2020 End: 05-02-2020 Patient encounter procedure Chito Land Work Phone: [facility] Comment on above: Primary osteoarthrit is of right hip (Primary Dx); Greater trochanteric bursitis of right hip Start: 04-27-2020 End: 04-27-2020 Subsequent hospital visit by physician Chito Land Work Phone: [facility] Comment on above: Arrived Start: 04-27-2020 End: 04-27-2020 Office outpatient new 30 minutes Chito Land Work Phone: [facility] Comment on above: Primary osteoarthrit is of right hip (Primary Dx); Greater trochanteric bursitis of right hip; Right hip pain Start: 07-27-2018 End: 07-27-2018 Patient encounter procedure [facility] Start: 07-27-2018 End: 07-27-2018 Office outpatient visit 15 minutes Paytonkimo James Work Phone: [facility] Comment on above: Acute swimmer's ear of both sides (Primary Dx) Start: 06-21-2018 End: 06-21-2018 Refill Payton James Work Phone: [facility] Start: 06-16-2018 End: 06-16-2018 Refill Payton K AdenClrTouch Work Phone: [facility] Start: 05-11-2018 Patient encounter procedure [facility] Start: 05-11-2018 End: 05-11-2018 Office outpatient visit 15 minutes Paytonkimo Samaniegomaishasaige Work Phone: [facility] Comment on above: Recurrent major depr essive disorder, in partial remission (Primary Dx); Anxiety Start: 04-09-2018 End: 04-09-2018 Patient encounter procedure [place] [facility] Comment on above: Prescription Clarifi cation Start: 04-08-2018 End: 04-08-2018 Patient encounter procedure Other Other [facility] Start: 03-30-2018 End: 03-30-2018 Patient encounter procedure Provider Sebas [facility] Start: 03-30-2018 End: 03-30-2018 Office outpatient visit 15 minutes Payton James Work Phone: [facility] Comment on above: Recurrent major depr essive disorder, in partial remission (Primary Dx); Anxiety Start: 03-25-2018 End: 03-25-2018 Patient encounter procedure Payton James Work Phone: [facility] Comment on above: Medication Managemen t Start: 03-21-2018 End: 03-21-2018 Refill Paytonkimo James Work Phone: [facility] Start: 03-12-2018 Patient encounter procedure [facility] Start: 03-12-2018 End: 03-12-2018 Patient encounter procedure Paytonkimo James Work Phone: [facility] Comment on above: Arrived Start: 03-03-2018 Patient encounter procedure PAYTONKIMO JAMES [facility] Start: 02-25-2018 Patient encounter procedure BUCUS NON-PATIENT [facility] Start: 12-05-2017 Patient encounter Sendy Preston ity:Freddy Start: 12-05-2017 End: 12-05-2017 Patient encounter Isidro Kristophershawn Birch Work Phone: [facility] Start: 12-05-2017 End: 12-05-2017 Office outpatient visit 10 minutes Isidro Eldridgeh Work Phone: [facility] Start: 11-07-2017 Patient encounter Sendy Birch Facil ity:[place] Start: 11-07-2017 End: 11-07-2017 Patient encounter Isidro Kristopher Queta Work Phone: [facility] Start: 11-07-2017 End: 11-07-2017 Office outpatient visit 10 minutes Isidro Birch Work Phone: [facility] Start: 10-08-2017 End: 10-09-2017 Ambulatory Isidro Birch Work Phone: [facility] Start: 10-08-2017 End: 10-08-2017 Office outpatient visit 15 minutes Isidro Birch Work Phone: [facility] Start: 10-08-2017 End: 10-08-2017 Ambulatory Isidro Birch Work Phone: [facility] Start: 09-15-2017 End: 09-15-2017 Emergency department patient visit SKOWHEGAN Arash [facility] Start: 05-27-2017 End: 05-27-2017 Ambulatory DESIRE HEWITT [facility] Ambula tory Start: 02-18-2017 [facility] Start: 11-07-2016 End: 11-08-2016 Ambulatory [facility] Start: 12-13-2014 Patient encounter DESIRE MOREJON [facility] Procedures Date Procedure Procedure Detail Performing Clinician [...] Surgery: [id number] Result Comment: PERF ORMED BY: [facility] [address] PATHOLOGIST CIRCLE SHEAR OPERATOR KOMAL COFFMAN M.D. Start: 11-19-2023 Methicillin resistan t Staphylococcus aureus culture DO Karen Cardoso Work Phone: Start: 09-15-2023 Urine culture DO Karen Cardoso Work Phone: Start: 08-29-2023 Mammography Sheryl Walden CCC-A Work Phone: Start: 06-13-2023 Plain X-ray of right hip DO Karen Cardoso Work Phone: Start: 07-12-2022 Plain X-ray of right hip DO Karen Cardoso Work Phone: Start: 05-02-2020 Arthrocentesis aspir &/inj major jt/bursa w/us Chito S Emery Work Phone: Start: 03-13-2018 Mammography BUCYRUS NO N-PATIENT FAIRS Start: 10-08-2016 Colonoscopy Annmarie lee Start: 03-25-2016 Mammography Annmarie lee Start: 01-24-2015 End: 01-24-2015 Colonoscopy Historical Provider Plan of Treatment Date Care Activity Detail Author Start: 03-10-2027 Tetanus vaccination [facility] Start: 10-08-2026 Screening [facility] Start: 10-08-2026 Screening for malign ant neoplasm of colon [facility] Start: 01-24-2025 Screening for malign ant neoplasm of colon [facility] Start: 09-14-2024 End: 09-14-2024 Patient encounter procedure 09/14/2024 10:35 AM EDT Office Visit [facility] [address] [place] [address] Angela Linda MD [address] [place] [address] [facility] Start: 08-28-2024 Screening for malign ant neoplasm of breast Mammogram [facility] Start: 07-27-2024 End: 07-27-2024 Patient encounter procedure 07/27/2024 11:15 AM EDT Office Visit [facility] [address] [id number] Nataprawira, Nicole J, DO [address] [facility] [address] [place] [id number] [facility] Start: 05-20-2024 End: 05-20-2024 Patient encounter procedure 05/20/2024 2:00 PM EST Office Visit [facility] [address] [place] [address] [facility] Start: 05-04-2024 End: 05-04-2024 Clinical Support 05/04/2024 1:30 PM EST Clinical Support [facility] [address] [place] [address] Sheryl Cooper [facility] [address] [place] [address] Arrived [facility] Comment on above: Arrived Start: 02-24-2024 Plain X-ray of right hip XR hi p RT min 2V(w/wo pelvis)* [facility] Start: 02-24-2024 XR Hip - right 2 Views [facility] Start: 01-21-2024 Plain X-ray of right hip XR hi p RT min 2V(w/wo pelvis)* [facility] Start: 01-21-2024 XR Hip - right 2 Views [facility] Start: 01-05-2024 [facility] Start: 01-05-2024 Hospital admission [facility] Start: 01-05-2024 Plain X-ray of right hip XR lo w pelvis w/RT x-table hip [facility] Start: 01-05-2024 XR Hip - right GE 2 Views [facility] Start: 01-05-2024 [facility] Start: 01-05-2024 Physical therapy procedure [facility] Start: 12-28-2023 Influenza vaccination Influenza Vacc ine (#1) [facility] Start: 12-22-2023 [facility] Start: 11-19-2023 MRSA Culture MRSA Culture [facility] Start: 11-19-2023 Methicillin resistan t Staphylococcus aureus [Presence] in Unspecified specimen by Organism specific culture [facility] Start: 11-19-2023 [facility] Start: 09-15-2023 Bacteria identified in Urine by Culture [facility] Start: 09-15-2023 [facility] Start: 06-13-2023 Plain X-ray of right hip XR hi p RT min 2V(w/wo pelvis)* [facility] Start: 06-13-2023 XR Hip - right 2 Views [facility] Start: 11-27-2021 DEXA SCAN DEXA SCAN [facility] Work Phone: Start: 05-23-2020 End: 05-23-2020 Office Visit 05/23/2020 Office Visit Orthopaedics Chito Land MD [address] [place] [address] [phone] [facility] Start: 05-02-2020 End: 05-02-2020 Office Visit 05/02/2020 Office Visit Orthopaedics Chito Land MD [address] [facility] [address] [facility] [place] [address] [phone] [facility] Start: 12-28-2019 Influenza vaccination INFLUENZA VACC INE (#1) [facility] Start: 12-28-2019 Influenza vaccinatio n given Sequential Influenza Vaccine (#1) [facility] Start: 10-07-2019 Pneumococcal vaccination [facility] Start: 10-07-2019 Pneumococcal Vaccine : 65+ Years (1 of 1 - PCV) Pneumococcal Vaccine: 65+ Years (1 of 1 - PCV) [facility] Start: 03-12-2019 Protein mass conc MAMMOGRAM SC REENING DISCUSSION [facility] Work Phone: Start: 03-12-2019 Screening mammography MAMMOGRA M SCREENING DISCUSSION [facility] Start: 05-11-2018 End: 05-11-2018 Ambulatory 05/11/2018 Office Visit Family Medicine Payton James MD [address] [facility] [place] [address] [phone] [facility] Start: 03-30-2018 End: 03-30-2018 Ambulatory [facility] Comment on above: Arrived Start: 12-27-2017 Influenza vaccination SEQUENTI AL INFLUENZA VACCINE (#1) [facility] Start: 12-05-2017 End: 12-05-2017 Ambulatory 12/05/2017 Office Visit Orthopedic Surgery Isidro Birch MD [address] [place] [address] [phone] [facility] Start: 11-07-2017 End: 11-07-2017 Ambulatory 11/07/2017 Office Visit Orthopedic Surgery Isidro Birch MD [facility] [place] [address] [phone] [facility] Start: 04-29-2017 Protein mass conc MAMMOGRAM SC REENING DISCUSSION [facility] Work Phone: Start: 04-29-2017 Screening for malign ant neoplasm of cervix [facility] Work Phone: Start: 03-25-2017 Screening mammography Mammogram [facility] Start: 03-05-2017 History and physical examination, annual for health maintenance Wellness Visit [facility] Start: 01-25-2016 Colonoscopy COLORECTAL CAN CER SCREENING DISCUSSION [facility] Start: 01-25-2016 Protein mass conc COLON CANCER SCREENING DISCUSSION [facility] Start: 12-14-2015 Screening for malign ant neoplasm of colon [facility] Start: 2014 Zoster vaccine hzv l esteban for subcutaneous use ZOSTER VACCINE [facility] Start: 2004 Administration of he rpes zoster vaccine Zoster Vaccines (1 of 2) [facility] Start: 2004 Colonoscopy COLON CANCER S CREENING DISCUSSION [facility] Start: 2004 Protein mass conc COLON CANCER SCREENING DISCUSSION [facility] Work Phone: Start: 2004 Screening for malign ant neoplasm of colon [facility] Start: 2004 Zoster vaccine hzv l esteban for subcutaneous use ZOSTER (SHINGLES) VACCINE (1 of 2) [facility] Start: 1994 Fasting lipid profile LIPID SCREENIN G [facility] Work Phone: Start: 1973 Third diphtheria, tetanus and acellular pertussis (DTaP) vaccination TDAP (ADULT) [facility] Work Phone: Start: 1972 Hepatitis C antibody , confirmatory test Hepatitis C Screening [facility] Start: 1972 Tetanus vaccination TETANUS [facility] Work Phone: Start: 1970 COVID-19 Vaccine (1 of 2) COVID-19 Vaccine (1 of 2) [facility] Start: 1969 HIV screening HIV Screening [facility] Start: 10-07-1967 HIV screening HIV SCREENING DISCUSSION [facility] Work Phone: Start: 1954 Fall risk assessment Falls Risk Asse ssment [facility] Start: 1954 Screening for malign ant neoplasm of colon [facility] Start: 1954 End: 1954 Hepatitis C antibody, confirmatory test HEPATITIS C VIRUS SCREENING [facility] Work Phone: Start: 1954 HEPATITIS C SCREENING HEPATITIS C SC REENING [facility] Start: 1954 Screening for malign ant neoplasm of cervix PAP SMEAR [facility] Auditory function tests Auditory function tests Audiology Routine 05/04/2024 1:36 PM EST [facility] Work Phone: Bacteria identified in Urine by Culture [facility] Comprehensive metabo lic 1999 panel - Serum or Plasma [facility] Comprehensive metabo lic 1999 panel - Serum or Plasma [facility] Cotinine [Mass/volum e] in Serum or Plasma [facility] Glucose measurement estimated from glycated hemoglobin [facility] Hemoglobin [Mass/vol ume] in Blood [facility] End: 03-12-2018 MG Breast Views MAMMO SCREENING BILATERAL Routine Screening for breast cancer 1 Occurrences starting 03/12/2018 until 03/12/2018 [facility] Work Phone: Comment on above: 1 Occurrences starti ng 03/12/2018 until 03/12/2018 MG Breast Views MAMMO SCREENING BILATERAL Routine Screening for breast cancer 03/12/2018 1:05 PM [facility] Work Phone: Nicotine [Mass/volum e] in Serum or Plasma [facility] Patient Education Know your Meds [facility] Work Phone: End: 04-27-2020 Radiography of hip XR HIP WITH PELVIS RIGHT Imaging Routine Right hip pain 1 Occurrences starting 04/27/2020 until 04/27/2020 [facility] Comment on above: 1 Occurrences starti ng 04/27/2020 until 04/27/2020 Radiography of hip XR HIP WITH P JEFF RIGHT Imaging Routine Right hip pain 04/27/2020 9:13 AM EST [facility] Urine culture [facility] End: 10-08-2017 XR Wrist Right 3+ Views (Standard) XR Wrist Right 3+ Views (Standard) Routine Left wrist pain Once for 1 Occurrences starting 10/08/2017 until 10/08/2017 [facility] XR Wrist Right 3+ Vi ews (Standard) XR Wrist Right 3+ Views (Standard) Routine Left wrist pain 10/08/2017 2:17 PM EDT [facility] Immunizations Immunization Date Immunization Notes Care Provider Alexia tracey 01-29-2021 COVID-19 mRNA, Comirnaty (Pfizer) DO Karen Cardoso Work Phone: [facility] 07-18-2020 COVID-19 Vaccine Pfi zer - Documentation Purposes Only Karen Cardoso Other [facility] 06-26-2020 COVID-19 Vaccine Pfi zer - Documentation Purposes Only aKren Cardoso Other [facility] 03-03-2018 influenza virus vaccine, unspecified formulation Chito Land [facility] 03-10-2017 diphtheria, tetanus toxoids and acellular pertussis vaccine, unspecified formulation Annmarie Xavier [facility] 03-10-2017 tetanus toxoid, redu jim diphtheria toxoid, and acellular pertussis vaccine, adsorbed Isidro Birch [facility] 08-26-2013 tetanus toxoid, redu jim diphtheria toxoid, and acellular pertussis vaccine, adsorbed Annmarie Xavier [facility] 01-26-2010 zoster vaccine, live DO Ronak Cardoso Work Phone: [facility] 02-19-1993 influenza virus vaccine, unspecified formulation Sheryl Cooper CCC-A Work Phone: [facility] Payers Date Payer Category Payer Medicare (Managed Care) [facility] MEDICARE ADVANTAGE Member Subscriber Plan / Payer (Effective 2021-Present) Name: Antonino Torres Relation to Subscriber: Self Name: Antonino Torres Payer ID: Not on file Group ID: [id number] Type: Not on file Address: [place] [id number] 2017 Medicare MEDICARE ANTHEM HMO OR PPO MEDICARE ANTHEM HMO OR PPO xxxxxxxxxxxx 2017-Present [id number] 2017 Medicare [id number]. [id number] 2015 Medicare [id number] 1959 Medicare [id number] 1959 Self-pay [id number] 1954 Unknown [id number] 2.16.840.1.485933.3.579.2. 983 1954 Unknown [id number] 2.16.840.1.129700.3.579.2. 903 1954 Unknown [id number] 2.16.840.1.621148.3.579.2. 593 1954 Unknown [id number] 2.16.840.1.111772.3.579.2. 593 1954 Unknown [id number] 2.16.840.1.202435.3.579.2. 593 1954 Unknown [id number] 2.16.840.1.951774.3.579.2. 1259 1954 Unknown [id number] 2.16.840.1.043320.3.579.2. 125 1954 Unknown [id number] 2.16.840.1.915583.3.579.2. 1259 1954 Unknown [id number] 2.16.840.1.726355.3.579.2. 125 1954 Unknown [id number] 2.16.840.1.340750.3.579.2. 1259 1954 Unknown [id number] 2.16.840.1.096469.3.579.2. 1259 1954 Unknown [id number] 2.16.840.1.590794.3.579.2. 1259 1954 Unknown [id number] 2.16.840.1.505447.3.579.2. 125 1954 Unknown [id number] 2.16.840.1.044995.3.579.2. 1259 1954 Unknown [id number] 2.16.840.1.560287.3.579.2. 125 1954 Unknown [id number] 2.16.840.1.751053.3.579.2. 1259 1954 Unknown [id number] 2.16.840.1.560369.3.579.2. 1259 Unknown [facility] [id number] Unknown [id number] 2.16.840.1.412076.3.579.2. 593 Unknown [id number] 2.16.840.1.073787.3.579.2. 593 Unknown [id number] 2.16.840.1.788657.3.579.2. 593 Unknown [id number] 2.16.840.1.536442.3.579.2. 531 Unknown [id number] 2.16.840.1.317323.3.579.2. 531 Unknown [id number] 2.16.840.1.820590.3.579.2. 531 Unknown [id number] 2.16.840.1.427407.3.579.2. 531 Unknown [id number] 2.16.840.1.106443.3.579.2. 531 Unknown [id number] 2.16.840.1.304202.3.579.2. 531 Unknown [id number] 2.16.840.1.124639.3.579.2. 531 Unknown [id number] 2.16.840.1.739032.3.579.2. 531 Unknown [id number] 2.16.840.1.887822.3.579.2. 531 Unknown [id number] 2.16.840.1.677671.3.579.2. 531 Social History Date Type Detail Facility Start: 10-08-2017 End: 06-23-2023 Tobacco smoking status MTIS Never smoker [facility] Start: 1955 Sex Assigned At Not on file [facility] Start: 03-03-2018 Alcohol Comment 2 beers a week [facility] Start: 04-27-2020 End: 06-23-2023 Tobacco use and exposure Never used [facility] Start: 12-05-2017 End: 04-27-2020 Alcohol intake Current drinker of alcohol (finding) [facility] Start: 09-25-2016 Alcohol Comment SOCIAL [facility] Start: 09-09-2023 Sex Assigned At [facility] Other Start: 1955 Sex Assigned At Female [facility] Start: 09-09-2023 Alcoholic beverage intake Ex-drinker (finding) [facility] Start: 09-09-2023 History of Social function [facility] Start: 06-23-2023 Alcohol Comment caffeine intak e: 1-2 cups per day [facility] NEGATED: Highlighted row [facility] Medical Equipment Procedure Code Equipment Code Equipment Origin al Text Equipment Identifier Dates Arthroplasty, hip, total, anterior approach Acetabular shell [id number] FDA Start: 01-05-2024 Arthroplasty, hip, total, anterior approach Orthopaedic bone screw, non-bioabsorbable, sterile ()[id number] FDA Start: 01-05-2024 Arthroplasty, hip, total, anterior approach Orthopaedic bone screw, non-bioabsorbable, sterile ()[id number] FDA Start: 01-05-2024 Arthroplasty, hip, total, anterior approach Orthopaedic bone screw, non-bioabsorbable, sterile ()[id number] FDA Start: 01-05-2024 Arthroplasty, hip, total, anterior approach Ceramic femoral head prosthesis ()[id number] FDA Start: 01-05-2024 Arthroplasty, hip, total, anterior approach Coated hip femur prosthesis, modular ()[id number] FDA Start: 01-05-2024 Arthroplasty, hip, total, anterior approach Non-constrained polyethylene acetabular liner ()[id number] FDA Start: 01-05-2024 Goals Date Patient Goal Desired Activity /State Clinical Notes 06-11-2021 to 05-20-2024 Sharon Zhou MA - 05/20/2024 2:00 PM Adriano Cooper CCC-A - 05/04/2024 1:30 PM EST Note Date & Type Note Facility 05-20-2024 History of Presen t illness Narrative Patient was in today to be fit with [place] HCS 512 T KITTY LI hearing aids which she obtained using her HCS benefit. Patient aids were coupled to 1S receivers with 10 mm open domes. Patient is an experienced hearing aid wearer but recently lost one of her hearing aids. She is familiar with the facility manager and maintenance. She was happy with sound settings and requested no changes. Patient does not use a phone with her aids. We reviewed use of the volume control on the hearing aid. Patient prefers to call as needed for follow ups. Cosigned by OZZIE Rivas at 05/20/2024 2:58 PM EST documented in this encounter [facility] 05-04-2024 History of Presen t illness Narrative History: Pt has history of bilateral hearing loss and was fit in 2023 with HCS 512 T KITTY aids. Pt lost both aids. It is less expensive for her to order new aids vs paying for the replacement fee. She had a hearing test in May 2023 and pt does not notice a decrease in her hearing so audio was not completed today. Hearing Aid Discussion: Pt can still purchase 2 level 5 hearing aids for $250 with her [employer] Medicare HCS benefit. Pt wants to order the aids today. She likes beige and needs 1S receivers. She is aware she will owe HCS $250. Gave pt HCS AR's number. Made HAF appointment in 2 weeks. Will call pt if aids do not arrive in time. documented in this encounter [facility] 12-12-2023 Evaluation note Authored December 12, 2023 10:00am The above note written by __ _Lina Bay____ acting as human recorder, note dictated by Dr. Armijo .I performed the above HPI, ROS, and Examination. I formulated and dictated the treatment plan and was present for entire encounter. Karen Cardoso D.O. [facility] Work Phone: 1(462) 140-243505-20-2024 Evaluation note* Author [facility] Authored September 15, 2023 2:26p m The above note written by __ _Lina Bay____ acting as human recorder, note dictated by Dr. Armijo .I performed the above HPI, ROS, and Examination. I formulated and dictated the treatment plan and was present for entire encounter. Karen Cardoso D.O. [facility] Work Phone: 1(986) 348-601102-29-2024 Evaluation note* Author Karen [facility] Authored June 26, 2023 10:58am The above note written by __ _Lina Bay____ acting as human recorder, note dictated by Dr. Armijo .I performed the above HPI, ROS, and Examination. I formulated and dictated the treatment plan and was present for entire encounter. Karen Cardoso D.O. [facility] Work Phone: 1(803) 456-858602-29-2024 Evaluation note* Author Karen [facility] Authored June 26, 2023 10:58am The above note written by __ _Lina Bay____ acting as human recorder, note dictated by Dr. Armijo .I performed the above HPI, ROS, and Examination. I formulated and dictated the treatment plan and was present for entire encounter. Karen Cardoso D.O. Author Karen [facility] Authored September 15, 2023 2:26p m The above note written by __ _Lina Bay____ acting as human recorder, note dictated by Dr. Armijo .I performed the above HPI, ROS, and Examination. I formulated and dictated the treatment plan and was present for entire encounter. Karen Cardoso D.O. [facility] Work Phone: 1(767) 542-618501-17-2024 Evaluation note* Encounter Date Diagnosis Assessment Notes [...] oral anti-inflammatorie s and Tylenol. Recommended utilizing [id number]-[id number] oral anti-inflammatorie s. Recommended adjusting their Tylenol [...] injection well. 5. 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 [facility] Other 02-16-2023 Evaluation note* Encounter Date Diagnosis [...] hip She would like to see an child care specialist for her right hip. She [...] her white blood cell count. 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 May, Other I did provide h er with a lab order today to have labs drawn prior to her appointment in November (2022). If she decides to have outreach lab drawn through the [facility] she should call and we will give her an order for just an AST/ALT. We discussed how much Calcium she should be taking, I did recommend she take [id number] daily. Recommend Calcium Citrate. [facility] Other 11-09-2022 Evaluation note* Encounter Date Diagnosis Assessment Notes Treatment Notes Treatment Clinical Notes Feb, Hyperlipidemia (ICD-10 - E78.5) [facility] Other 10-18-2022 Evaluation note* Encounter Date Diagnosis [...] then we would refer her to a paid search marketing analyst. 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 [facility] Other 02-14-2022 NoteHISTORY: Bone density screening. COMPARISON: [...] and signed by Trell Martin on 06/11/2021 1237[facility] SpecialistChief complaint+Reason for visit Narrative* Chief Complaint 2 MONTHS WANTS TO DI SCUSS SURGERY m16.11 z11.846 m81.0 review labs/medical clearance Hip pain Reason for Visit Primary osteoarthrit is of right hip Bipolar depression Encounter for pre-operative examination Hyperglycemia Hyperlipidemia Primary osteoarthritis of right hip Weight loss [facility] Work Phone: Chief complaint+Reason for visit Narrative* Chief Complaint 2 MONTHS WANTS TO DI SCUSS SURGERY m16.11 z79898 m81.0 review labs/medical clearance Hip pain Preop - R JASON H&P RTHA Reason for Visit Primary osteoarthrit is of right hip Bipolar depression Encounter for pre-operative examination Hyperglycemia Hyperlipidemia Primary osteoarthritis of right hip Weight loss Primary osteoarthritis of right hip [facility] Work Phone: Chixm complaint+Reason for visit Narrative* Chief Complaint 2 MONTHS WANTS TO DI SCUSS SURGERY m16.11 z79.865 m81.0 review labs/medical clearance Hip pain Preop - R JASON H&P RTHA Prolonged Reason for Visit Primary osteoarthrit is of right hip Bipolar depression Encounter for pre-operative examination Hyperglycemia Hyperlipidemia Primary osteoarthritis of right hip Weight loss Primary osteoarthritis of right hip [facility] Work Phone: Chief complaint+Reason for visit Narrative* Chief Complaint 2 MONTHS WANTS TO DI SCUSS SURGERY m16.11 z79.899 m81.0 review labs/medical clearance Hip pain Preop - R JASON H&P RTHA Prolonged BH Hip pain Hip pain Reason for Visit Primary osteoarthrit is of right hip Bipolar depression Encounter for pre-operative examination Hyperglycemia Hyperlipidemia Primary osteoarthritis of right hip Weight loss Primary osteoarthritis of right hip [facility] Work Phone: Chief complaint+Reason for visit Narrative* Chief Complaint 2 MONTHS WANTS TO DI SCUSS SURGERY m16.11 z79.899 m81.0 review labs/medical clearance Hip pain Preop - R JASON H&P RTHA Prolonged BH Hip pain Hip pain 2 WK POST OP RTHA Z96.641 - Presence of right artificial hip joint Reason for Visit Primary osteoarthrit is of right hip Bipolar depression Encounter for pre-operative examination Hyperglycemia Hyperlipidemia Primary osteoarthritis of right hip Weight loss Primary osteoarthritis of right hip Aftercare following right hip joint replacement surgery Status post right hip replacement [facility] Work Phone: Chief complaint+Reason for [...] replacement surgery Status post right hip replacement [facility] Work Phone: Evaluation noteNo InformationNort [employer] Other Evaluation noteNo assessment information available [facility] Work Phone: Evaluation note* Diagnosis Onset Date Resolution Status Greater trochanteric bursitis of right hip acute Primary osteoarthritis of right hip acute [facility] Work Phone: Evaluation note* Diagnosis Sensorineural hearing loss, bilateral- Primary documented in this encounter [facility] Diagnosis Sensorineural hearing loss, bilateral- Primary documented in this encounter [facility] HealthcareHistory general Narrative - Reported* Type Description Date [...] Dr. Wu 02/23/2020 Hospitalization History see above [facility] Other History general Narrative - Reported* Type [...] repeat in 202902/23/2020 Hospitalization History see above [facility] Other Assessments Diagnosis Left wrist pain Pain [...] Date/ Time Advance Directives No July 18, 023 7:39am Advance Directive Response Recorded Date/ Time Advance Directives No July 18, 023 8:39am Instructions * Patient Instructions - [...] findings. Additions if any: Chito Land MD, [facility] Encapsulator - [facility] * Rachna Hunter - [...] from the last injection. Chito Land MD, [facility] Encapsulator - [facility] * Corinne Shaffer - [...] findings. Additions if any: Chito Land MD, [facility] Encapsulator - [facility] * Corinne Shaffer - [...] Procedures MAMMO SCREENING BILATERAL Payton James MD [address] [place] [id number] Reason appt 07/12/22 at 10am pt needs consult to discuss right hip pain Diagnosis 1 Hip pain (M25.559) Referral Organization [facility] Family Aly Nuñez Referring Provider First Name Karen Referring Provider Last Name Walker Referring Provider Specialty Family Sarah klein Referred Organization [facility] Referred Provider Finn Ortez II Referred Address [address] [place] [place], [place],[address] Referred Provider Specialty Orthopedic S urgery Referral [...] concussion synd lizzy (F07.81) Referral Organization [facility] Aly Nuñez Referring Provider First Name Karen Referring Provider Last Name Walker Referring Provider Specialty Family Prac ernie Referred Organization [facility] Referred Address [address] [place],[address] Referred Provider Specialty Neurology Referral Priority Routine [...] hearing (H 91.90) Referral Organization [facility] Referring Provider First Name Karen Referring Provider Last Name Walker Referring Provider [facility] Referred Organization [facility] Referred Address ,[place],[address] Referred Provider Specialty Audiologists Referral Priority Routine General Notes Engle, Sheryl 04/15/2023 10:18:38 AM > referral faxed to [...] Complaint review labs r35.0 r30.0 possible UTI Reason [...] section and content) DATE CREATED AUTHOR 10/20/2017 [facility] DATE CREATED AUTHOR AUTHOR'S ORGANIZ ATION 10/24/2017 [facility] DATE CREATED AUTHOR AUTHOR'S ORGANIZ ATION 11/12/2017 [facility] DATE CREATED AUTHOR AUTHOR'S ORGANIZ ATION 11/12/2017 [facility] DATE CREATED AUTHOR AUTHOR'S ORGANIZ ATION 12/20/2017 [facility] DATE CREATED AUTHOR AUTHOR'S ORGANIZ ATION 04/06/2018 [facility] DATE CREATED AUTHOR AUTHOR'S ORGANIZ ATION [facility] DATE CREATED AUTHOR AUTHOR'S ORGANIZ ATION 02/10/2021 [facility] DATE CREATED AUTHOR AUTHOR'S ORGANIZ ATION 06/11/2021 [facility] Special[facility] DATE CREATED AUTHOR AUTHOR'S ORGANIZ ATION 08/28/2022 [facility] DATE CREATED AUTHOR AUTHOR'S ORGANIZ ATION 05/19/2024 [facility] DATE CREATED AUTHOR AUTHOR'S ORGANIZ ATION 05/22/2024 [facility] Reason for Visit (unrecogniz ed section and content) Reason Comments Medication Management Reason Comments Medication Refill Reason Comments Prescription Clarification Status Reason Specialty Diagnoses / Procedures Referre d By Contact Referred To Contact Closed Diagnoses Screening for breast cancer Procedures MAMMO SCREENING BILATERAL Payton James MD [address] [place] [id number] Reason Comments Depression Antonino feels pretty g [...] 2024 Team Status: Inactive Member Role Status Dates [...] Attending Provider Active Start: January 21, 2024 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 [employer] provides no warranty or guarantee of the accuracy or completeness of information in this document.
[2024-06-11 09:06] LABS: Basophils Absolute Auto 0.1 10^3/uL (0.0-0.1); Basophils Percent Auto 0.7 % (0.2-2.0); Eosinophils Absolute Auto 0.3 10^3/uL (0.0-0.7); Eosinophils Percent Auto 3.2 % (0.9-7.0); Hematocrit 40.3 % (36.0-48.0); Hemoglobin 13.3 g/dL (12.0-16.0); Immature Granulocytes Abs Auto 0.02 10^3/uL (0.00-0.03); Immature Granulocytes Pct Auto 0.2 % (0.0-0.5); Lymphocytes Absolute Auto 1.6 10^3/uL (1.2-3.8); Lymphocytes Percent Auto 16.2 % (20.5-60.0); Mean Corpuscular Hemoglobin 28.2 pg (26.7-34.0); Mean Corpuscular Volume 85.6 fL (81.0-99.0); Monocytes Absolute Auto 0.7 10^3/uL (0.3-0.8); Monocytes Percent Auto 7.4 % (1.7-12.0); Neutrophils Absolute Auto 7.3 10^3/uL (1.4-6.5); Neutrophils Percent Auto 72.3 % (43.0-75.0); Platelet Count 318 10^3/uL (150-450); Red Blood Count 4.71 10^6/uL (4.20-5.40); Red Cell Distribution Width 14.2 % (11.0-15.0)
[2024-06-11 09:20] LABS: Estimated Average Glucose 120 mg/dL; Glycohemoglobin A1C 5.8 % (4.5-6.2)
[2024-06-11 09:31] LABS: Alanine Aminotransferase 24 U/L (14-59); Albumin Globulin Ratio 1.1; Albumin Level 3.6 g/dL (3.4-5.0); Alkaline Phosphatase 93 U/L (46-116); Anion Gap 11.1; Aspartate Amino Transferase 22 U/L (15-37); BUN Creatinine Ratio 14.7; Bilirubin Total 0.8 mg/dL (0.2-1.0); Calcium 8.6 mg/dL (8.5-10.1); Carbon Dioxide 29.6 mmol/L (21.0-32.0); Chloride 106 mmol/L (98-107); Chol HDL Ratio 2.5; Cholesterol 145 mg/dL (<=200); Estimated GFR (African America >60 (>=60 mL/min/1.73m^2); Estimated GFR (Non-African Ame >60 (>=60 mL/min/1.73m^2); Globulin 3.4 g/dL; Glucose 98 mg/dL (74-106); HDL Cholesterol 57 mg/dL (40-60); LDL Cholesterol Calculated 64.6 mg/dL; Potassium 3.7 mmol/L (3.5-5.1); Sodium 143 mmol/L (136-145); Triglycerides 117 mg/dL (<=150); VLDL CHOLESTEROL 23.4 mg/dL
[2024-06-11 11:45] LABS: Bilirubin Urine NEGATIVE (NEGATIVE); Blood Urine NEGATIVE (NEGATIVE); Clarity Urine CLEAR (CLEAR); Color Urine YELLOW (YELLOW); Glucose Urine UA NEGATIVE (NEGATIVE); Ketones Urine NEGATIVE (NEGATIVE); Nitrite Urine NEGATIVE (NEGATIVE); Protein Urine NEGATIVE (NEG/TRACE); Urobilinogen Urine 0.2 EU/dL (0.2-1.0)
[2024-06-11 11:46] LABS: Leukocyte Esterase Urine TRACE (NEGATIVE)
[2024-06-11 11:47] LABS: Bacteria Urine SMALL #/HPF (NONE SEEN); Cast Seen? NONE SEEN #/LPF (NONE SEEN); Crystals Seen? None Seen #/HPF (None Seen); Mucus Urine MODERATE (NONE SEEN); RBC Urine 0-2 #/HPF (0-2); Squamous Epithelial Cell Urine FEW #/LPF (NONE/RARE); Transitional Epi Cells Urine RARE #/LPF (NONE SEEN); Urine Culture Indicated ALREADY ORDERED
== END 2024-06-11 08:34 | disposition home or self-care (01) ==
LOC: LAB 08:34
PROVIDERS: PCP Family Medicine; Visit Provider Family Medicine
DX: R73.9 Hyperglycemia, unspecified (principal); R35.1 Nocturia; Z79.899 Other long term (current) drug therapy; E78.5 Hyperlipidemia, unspecified
CPT/HCPCS: 36415; 80053; 80061; 81001; 83036; 85025; 87086

== ENCOUNTER 2024-11-30 07:55 | Outpatient (OUT) | payer MEDICARE, SELFPAY ==
--- NOTE | 2024-11-30 07:57 | US_ITS ---
The [address] [address] Patient Name: ALETHA LIN MRN: [id number] date: 1955 Sex: F Assigned Patient Location: US Current Patient Location: US Accession/Order Number: [id number] Exam Date: 11/30/2024 11:45 Report Date: 11/30/2024 11:51 At the request of: KAREN CARDOSO Procedure: US thyroid Thyroid ultrasound Reason for exam: Thyroid nodule Comparison: Thyroid ultrasound 04/30/2024 Technique: Grayscale and color Doppler images of the thyroid gland were obtained. Findings: Right lobe measures 3.9 x 0.9 x 1.1 cm. Left lobe measures 3.3 x 1.2 x 1.2 cm. Isthmus measures 2 mm. Colloid cysts are noted. Hypoechoic nodule is seen within the mid aspect of the left lobe measuring 6 mm in greatest dimension. No hyperemia seen on color Doppler imaging. No microcalcifications are noted within the nodules. The nodules appear grossly unchanged from the prior study. No new nodules are identified. US/US thyroid Impression: Hypoechoic nodule mid aspect left lobe measuring 6 mm unchanged from the prior study. No new or enlarging suspicious thyroid nodule is seen. Impression dictated by: Isidro Trinidad Jr., D.O. 11/30/2024 11:51 AM Dictation Location: [facility] Electronically authenticated by: [id number] Y Date: 11/30/2024 11:51
--- OUTSIDE RECORDS SUMMARY | 2024-11-30 07:57 | XMS_ITS | Clinical Summary ---
Author Organization [facility] Address [address] [place] [address] Care Team Providers Care Equipment Operator/Laborer/Supervisor Name Role Phone Casa Riddle Primary Care Provider [phone] Allergies Active Allergy Reactions Criticality Noted Date Comments Oxycodone-Acetaminophen 03/20/2015 Medications therapeutic multivitamin (THERAGRAN) tablet Take 1 tablet by mouth daily. Active simvastatin (ZOCOR) 20 MG tablet TAKE ONE TABLET BY MOUTH EVERY NIGHT AT BEDTIME 90 tablet 3 7 Active BOOSTRIX TDAP 2.5-8-5 Lf-mcg-Lf/0.5mL Syrg Inject 1 mL into the shoulder, thigh, or buttocks once. 7 Active YUVAFEM 10 mcg Tab Insert 1 (one) tablet (10 mcg total) into the vagina once a week. 12 tablet 8 Active sildenafil (VIAGRA) 100 MG tablet Take 1 (one) tablet (100 mg total) by mouth daily as needed . 10 tablet 1 8 Active Active Problems Problem Noted Date Diagnosed Date Closed fracture of right distal radius 8 Status post hip replacement 09/25/2016 Hyperlipidemia 03/05/2016 Anxiety 03/05/2016 Depressed 10/05/2015 Immunizations Immunization Administration Dates Next Due Tdap 03/10/2017,08/26/2013 Family History Relation Status Comments Father Mother Social History Tobacco Use Types Packs/Day Years Used Date Smoking Tobacco: Never Smokeless Tobacco: Never Alcohol Use Standard Drinks/Week Comments Yes 0 (1 standard drink = 0.6 oz pur e alcohol) SOCIAL Comments No Sex and Gender Information Value Date Recorded Sex Assigned at Not on file Legal Sex Female 6:07 AM EDT Gender Identity Not on file Sexual Orientation Not on file Last Filed Vital Signs Vital Sign Reading Time Taken Comments Blood Pressure 130/78 12/05/2017 11:24 AM EDT Pulse 57 12/05/2017 11:24 AM EDT Temperature 37.1 C (98.8 F) 05/27/2017 2:53 PM EST Respiratory Rate - - Oxygen Saturation - - Inhaled Oxygen Concentration - - Weight 70.3 kg (155 lb) 12/05/2017 11:24 AM EDT Height 162.6 cm (5' 4 ) 12/05/2017 11:24 AM EDT Body Mass Index 26.61 12/05/2017 11:24 AM EDT Plan of Treatment Health Maintenance Due Date Last Done Comments CT Colonography 1955 Fecal DNA 1955 Depression Screening/Follow- Up (PHQ-2/9) 1966 Hepatitis C Screening 1972 Pneumococcal Vaccine: Age 50 + (1 of 1 - PCV) 2004 Zoster Vaccines (2 of 3) 03/23/2010 01/26/2010 Fecal occult blood test (FOBT,FIT) 12/14/20152014 Wellness Visit 10/23/2017 10/23/2016, 03/05/2016 Falls Risk Assessment 10/07/2019 COVID-19 Vaccine ( - 2023-2 5 season) 2023 01/29/2021, 07/18/2020, 06/26/2020 Influenza Vaccine (#1) 2024 02/18/2017 (Declin ed) Colonoscopy 10/08/2026 10/08/2016, 09/26, 03/16/2009 Colorectal Cancer Screening/Monitoring 10/08/2026 Tetanus: Every 10yrs 03/10/2027 03/10/2017, 08/27/19 14 Respiratory Syncytial Virus Immunization: Risk, 60-74 Risk, or 75+ (1 - 1-dose 75+ series) 2029 Dexa Scan Completed 03/08/2009 Mammogram Discontinued 03/12/2018, 03/25/2016 Procedures Procedure Name Priority Date/Time Associated Diagnosis Comments COLONOSCOPY Routine 10/08/2016 MM SCREENING BILATERAL Routine 03/25/2016 OCCULT BLOOD STOOL IMMUNOASSAY (YOSEF HERNANDEZ, [facility] ONLY) Routine 12/13/2014 10:00 AM EDT DEXA SCAN Routine 03/08/2009 from Last 3 Months or Most Recently Relevant to Health Maintenance Results * COLONOSCOPY (10/08/2016) Historical Provider SCANNED ORDERS Final Res ult * Mammography Screening Bilateral (03/25/2016) Anatomical Region Laterality Modality Breast Bilateral Mammography Result [facility] Historical Provider IMG MAMMOGRAPHY ORDERABLE S Final Result * Occult Blood Immunoassay (12/13/2014 10:00 AM EDT) Clinical Report MICRO [facility] Comment: .Specimen: Stool .Collected: 12/13/2014 10:00 . .Status: Final Last Updated: 12/13/2014 18:13 . . . Result (Final) . Negative for Occult Blood by Immunoassay . . The above 1 analytes were performed by [facility] Outpatient Services [address] [place] [id number] Tests Performed at: [facility] (Unless Otherwise Specified) [address] [place] [address], [address] - CLIA #[id number] HOS - Order ID:[id number] Sample ID:[id number] 12/13/2014 10:0 0 AM EDT 12/13/2014 10:00 AM EDT Otis Poole MD MICROBIOLOGY - GENERAL ORDERABLES Final Result [facility] [address] [place] [address] * DEXA SCAN (03/08/2009) Anatomical Region Laterality Modality Other Historical Provider HEALTH MAINTENANCE Final Result from Last 3 Months or Most Recently Relevant to Health Maintenance Insurance [employer] MED[employer] ESSENTIAL/PLUS/CONNECT/SNP HMO Care Teams Equipment Operator/Laborer/Supervisor Relationship Specialty Start Date End Date Casa Riddle DO [address] [place] [id number] PCP - General Family Medicine 02/06/21
--- OUTSIDE RECORDS SUMMARY | 2024-11-30 07:57 | XMS_ITS | Clinical Summary ---
Author Organization [facility] Healthcare Address [address] [place] [address] Care Team Providers Care Milieu Technician Name Role Phone Casa Riddle MD Primary Care Provider [phone] Allergies Active Allergy Reactions Criticality Noted Date Comments Duloxetine 06/13/2023 Other Reaction(s): headaches Fluoxetine 06/13/2023 Other Reaction(s): doesn't work Oxycodone-Acetaminophen Itching Medium 03/20/2015 Jumpy legs, hyper Medications ascorbic acid (Vitamin C) 500 MG tablet Take 500 mg by mouth Active CALCIUM PO Take by mouth Daily Active metroNIDAZOLE (MetroLotion) 0.75 % lotion lotion Apply 1 application topically 1 (one) time each day at the same time 2 Active Multiple Vitamins-Minera ls (Oncovite) tablet Take 1 tablet by mouth in the morning. Active simvastatin (Zocor) 20 MG tablet Take 20 mg by mouth at bedtime 4 Active desvenlafaxine (Pristiq) 50 MG 24 hr tablet Take 50 mg by mouth Daily Do not crush, chew, or split. Active busPIRone (Buspar) 5 MG tablet Take 5 mg by mouth in the morning and 5 mg in the evening and 5 mg before bedtime. 5 Active Active Problems Problem Noted Date Diagnosed Date Atrophy of vagina 06/23/2023 Female cystocele 06/23/2023 Greater trochanteric bursitis of right hip 06/23 Primary osteoarthritis of right hip 06/23/2023 Rosacea 06/23/2023 Urge incontinence of urine 06/23/2023 Recurrent major depressive disorder, in partial remission 03/30/2018 Anxiety 03/05/2016 Hyperlipidemia 03/05/2016 Depressed 10/05/2015 Resolved Problems Problem Noted Date Diagnosed Date Resolved Date History of hysterectomy for benign disease 06/23/2023 06/23/2023 Vaginal dryness 06/23/2023 06/23/2023 Closed fracture of right distal radius 10/09/2017 06/23/2023 Female pelvic pain 10/23/2016 Status post hip replacement 09/25/2016 06/23/2023 Encounters Date Type Department Care Team Description 09/14/2024 10:35 AM EDT Office Visit [facility] [address] [place] [address] Jessenia Linda MD Melanocytic nevus of trunk (Primary Dx); Lentigines; Inflammatory papule; Notalgia paresthetica 09/14/2024 Bamboo flowsheet [facility] [address] [place] [address] Jessenia Linda MD 09/14/2024 Travel 09/09/2024 3:30 PM EDT Ancillary Procedure [facility] [address] [place] [address] 09/09/2024 Travel from Last 3 Months Immunizations Immunization Administration Dates Next Due Tdap 03/10/2017,08/26/2013 Zoster, live 01/26/2010 Family History Medical History Relation Name Comments Alzheimer's disease Father Cancer Mother lung Breast cancer Sister not genetic Cancer Sister breast Diabetes Sister Relation Name Status Comments Father Mother Sister x3 Son 1 son Social History Tobacco Use Types Packs/Day Years Used Date Smoking Tobacco: Never Smokeless Tobacco: Never Tobacco Cessation:Counseling Given: Not Answered Alcohol Use Standard Drinks/Week Comments Not Currently 0 (1 standard drink = 0.6 oz pure alcohol) caffeine intake: 1-2 cups per day Comments No Sex and Gender Information Value Date Recorded Sex Assigned at Not on file Legal Sex Female 9:45 PM EDT Gender Identity Not on file Sexual Orientation Not on file Last Filed Vital Signs Vital Sign Reading Time Taken Comments Blood Pressure 118/80 07/27/2024 10:05 AM EDT Pulse - - Temperature - - Respiratory Rate - - Oxygen Saturation - - Inhaled Oxygen Concentration - - Weight 70.3 kg (155 lb) 07/27/2024 10:05 AM EDT Height 165.1 cm (5' 5 ) 06/25/2023 9:20 AM EST Body Mass Index 25.79 06/25/2023 9:20 AM EST Plan of Treatment Upcoming Encounters Date Type Department Care Team (Late st Contact Info) Description 07/28/2025 9:30 AM EDT Office Visit [facility] [address] [phone] Nicole Hawkins DO [address] [phone] 09/14/2025 10:15 AM EDT Office Visit [facility] [address] [place] [phone] Jessenia Linda MD [address] [place] [address] Health Maintenance Due Date Last Done Comments CT Colonography 1954 FIT-DNA 1954 Sigmoidoscopy 1955 Pneumococcal Vaccine: 65+ Ye ars (1 of 1 - PCV) 2004 FIT 12/14/2015 12/13/2014 FOBT 12/14/2015 12/13/2014 Influenza Vaccine (#1) 2024 02/19/1993 Mammogram 09/09/2025 09/09/2024, 05/0 06/2023, 06/11/2021, Additional history exists Colonoscopy 10/08/2026 10/08/2016, 01/24/2015 Colorectal Cancer Screening 10/08/2026 Procedures Procedure Name Priority Date/Time Associated Diagnosis Comments BI MAMMOGRAM SCREENING TOMOSYNTHESIS BILATERAL Routine 09/09/2024 3:16 PM EDT Other screening mammogram from Last 3 Months Results * Bilateral screening mammogram with tomosynthesis (09/09/2024 3:16 PM EDT) Anatomical Region Laterality Modality Breast Bilateral Mammography 09/11/2024 1:25 PM EDT Impressions 09/11/2024 1:33 PM EDT Impression: No specific evidence of malignancy seen in either breast. BIRADS 2 - Benign Findings DENSITY: The breasts are almost entirely fatty. FOLLOW-UP: Routine Screening Mammogram ELECTRONICALLY SIGNED BY: Yeyo Mahajan M.D. Narrative 09/11/2024 1:33 PM EDT Examination: BI MAMMOGRAM SCREENING TOMOSYNTHESIS BILATERAL Clinical History: screening Technique: Screening digital mammography study of both breasts was performed with 2-D and 3-D tomosynthesis imaging. Study was compared to the prior exam dated 08/29/2023. Findings: There is no evidence of interval dominant spiculated mass, grouped microcalcifications, or skin thickening which would be suggestive of malignancy. Mild scattered benign-appearing calcifications noted bilaterally. Mild scattered benign-appearing asymmetric densities bilaterally similar to the prior study. Axillary lymph node on the right appears grossly unremarkable. Partially visualized axillary lymph node on the left appears grossly unremarkable. Procedure Note Yeyo Mahajan MD - 09/11/2024 Examination: BI MAMMOGRAM SCREENING TOMOSYNTHESIS BILATERAL Clinical History: screening Technique: Screening digital mammography study of both breasts wasperformed with 2-D and 3-D tomosynthesis imaging. Study was compared tothe prior exam dated 08/29/2023. Findings: There is no evidence of interval dominant spiculated mass,grouped microcalcifications, or skin thickening which would be suggestiveof malignancy. Mild scattered benign-appearing calcifications noted bilaterally. Mildscattered benign-appearing asymmetric densities bilaterally similar to theprior study. Axillary lymph node on the right appears grosslyunremarkable. Partially visualized axillary lymph node on the left appearsgrossly unremarkable. IMPRESSION: Impression: No specific evidence of malignancy seen in either breast. BIRADS 2 - Benign Findings DENSITY: The breasts are almost entirely fatty. FOLLOW-UP: Routine Screening Mammogram ELECTRONICALLY SIGNED BY: Yeyo Mahajan M.D. Nicole Hawkins DO IMG BI PROCEDURES Final Re sult from Last 3 Months Insurance [employer] MEDICARE ADVANTAGE Care Teams Milieu Technician Relationship Specialty Start Date End Date Casa Riddle MD [address] [place], [place] [id number] PCP - General Family Medicine 04/15/23
--- OUTSIDE RECORDS SUMMARY | 2024-11-30 07:59 | XMS_ITS | CCD ---
Author Organization [facility] Care Team Providers Care Fire Boss Name Role Phone Desire Britt Unavailable [phone] DESIRE BRITT Unavailable Unavailab CHIKI Bagley Unavailable [...] Unavailable DO Karen Cardoso Primary Care Provider [phone] MD Finn Ortez II Attending Provider Finn Ortez II Unavailable REQUEST, NONE LISTED Consulting Unavaila ble GIRVIN, DR [...] ble REQUEST, NONE LISTED Attending Unavaila ble MAGGIEVIN, DR JONES Primary Care Unavailable REQUEST, NONE LISTED Admitting Unavaila ble REQUEST, NONE LISTED Consulting Unavaila ble REQUEST, NONE LISTED Attending Unavaila ble WALKER, DR JONES Primary Care Unavailable Walker, DO Jones Primary Care Provider MD Floyd Hampton Attending Provider MD Finn Ortez II Attending Provider DO Karen Cardoso Primary Care Provider MD Floyd Hampton Attending Provider DO Karen Cardoso Attending Provider [phone] DO Karen Cardoso Primary Care Provider [phone] MD Floyd Hampton Attending Provider [phone] MD Finn Ortez II Attending Provider MD Floyd Hampton Attending Provider [phone] DO Karen Cardoso Primary Care Provider MD Floyd Hampton Attending Provider DO Karen Cardoso Primary Care Provider [phone] MD Finn Ortez II Attending Provider MD Floyd Hampton Attending Provider [phone] Karen Cardoso MD Primary Care Provider [phone] [facility] [phone] Finn Ortez MD Attending Provider Berta NEWBERRY, Floyd Attending Provider [phone] Walker ROGEL, Karen Primary Care Provider Berta NEWBERRY, Floyd Attending Provider [phone] Lay Alvarez MD Attending Provider Karen Cardoso MD Primary Care Provider [phone] NICOLE HAWKINS Attending Unavailable SHERYL COOPER Attending Unavailable NICOLE HAWKINS Referring Unavailable ANGELA LINDA Attending Unavailable Lay Alvarez MD Referring Provider Finn Ortez II Admitting Unavailabl e Walker Karen Primary Care Unavailable Pérez SHAFFER, Finn Clifford Attending Unavailabl e Pérez SHAFFER, Finn Clifford Admitting Unavailabl e Karen Cardoso Primary Care Unavailable [place] II, Finn Clifford Attending Unavailabl e Walker Karen Primary Care Unavailable Pérez II, Finn Clifford Attending Unavailabl e [place] II, Finn Clifford Admitting Unavailabl e Karen Cardoso Primary Care Unavailable Pérez II, Finn Clifford Attending Unavailabl e Pérez SHAFFER, Finn Clifford Admitting Unavailabl e Lay Alvarez Admitting Unavailable Lay Alvarez Attending Unavailable Karen Cardoso Primary Care Unavailable [place] II, Finn Clifford Admitting [facility] [place] II, Finn Clifford Attending Unavailabl e Lay Alvarez Admitting Unavailable Lay Alvarez Attending Unavailable Lay Alvarez Referring Unavailable Karen Cardoso Primary Care Unavailable Finn Ortez II Admitting UnavailKaren Caldwell Primary Care Unavailable Finn Ortez II Attending UnavailFinn Pandya II Admitting Unavailabl e Karen Cardoso Primary Care Unavailable Finn Ortez II Attending UnavailKaren Caldwell Primary Care Unavailable Floyd Hampton Admitting Unavailab le Floyd Hampton Attending Unavailab le Allergies Allergy Classification Reported Allergen(s) Allergy Type Date of Onset Reaction(s) Facility (20 sources) acetaminophen / oxyCODONE; Translations: [OXYCODONE-ACETAM INOPHEN] Drug Allergy 5 Itching [facility] (20 sources) Acetaminophen / oxyCODONE; Translations: [Percocet] Drug Allergy 3 [facility] (19 sources) DULoxetine Drug Allergy headaches [facility] Other (19 sources) FLUoxetine Drug Allergy doesn't work [facility] Other (13 sources) Acetaminophen; Translations: [acetaminophen] Drug Allergy 4 [facility] (20 sources) DULoxetine; Translations: [duloxetine] Drug Allergy 4 [facility] (20 sources) FLUoxetine; Translations: [fluoxetine] Drug Allergy 4 doesn't work [facility] (20 sources) oxyCODONE; Translations: [oxycodone] Drug Allergy 4 [facility] Medications Current Medications Medication Drug Class(es) Dates [...] thigh, or buttocks once. 03/10/2017 Active acetaminophen 325 mg / HYDROcodone bitartrate 5 mg oral tablet (6 sources) Opioid Agonist Start: 08-27-2022 End: 07-27-2024 take 1 tablet by mouth every six hours as needed HYDROcodone-aceta minophen ([place]) 5-325 MG tablet Take 1 tablet by mouth every 6 (six) hours if needed 08/27/2022 07/27/2024 Discontinued ascorbic acid 500 mg chewable tablet (20 [...] Orally Once a day Nov, Active Biotin (12 sources) Start: 12-22-2023 take 1 tablet by mouth once daily Biotin (Hair, Skin And Nails (Biotin)) 10,000 mcg tablet,chewable Active 19901 MCG PO Daily December 21, 2023 11:00pm Start: 12-22-2023 take 1 tablet by anam th once daily Biotin (Hair, Skin And Nails (Biotin)) 10,000 mcg tablet,chewable Active 86204 MCG PO Daily December 22, 2023 12:00am busPIRone hydrochloride 5 mg oral tablet (20 sources) Start: 11-19-2023 take 1 tablet by mouth three times daily Buspirone 5 mg tablet Active 5 MG PO Three times daily [...] mg / cholecalciferol 125 unt oral tablet (12 sources) Vitamin D Start: 12-22-2023 take 1 tablet by mouth once daily Calcium Carbonate-Vitamin D3 500 mg-3.125 mcg (125 unit) tablet Active 1 TAB PO Daily December 22, 2023 12:00am cyclobenzaprine hydrochloride 10 mg oral tablet (6 sources) Muscle Relaxant Start: 02-25-2023 End: 07-27-2024 cyclobenzaprine (Flexeril) 10 MG tablet Take 5-10 mg by mouth at bedtime 02/25/2023 07/27/2024 Discontinued 24 hr desvenlafaxine succinate 25 mg extended release oral tablet (20 sources) Serotonin and Norepinephrine Reuptake Inhibitor Start: 11-19-2023 take 1 tablet by mouth once daily Desvenlafaxine Succinate 25 mg tablet extended release 24 hr Active 25 MG PO Daily November 19, 2023 12:00am take 1 tablet by mouth once andrey y desvenlafaxine (Pristiq) 50 MG 24 hr tablet Take 50 mg by mouth Daily Do not crush, chew, or split. Active dexamethasone 1 mg/ml / tobramycin 3 [...] 12 tablet 0 06/09/2017 Active estrogens, conjugated (fci) 0.625 mg/ml vaginal cream (16 sources) Estrogen [...] 40 mg by mouth daily. 03/26/2018 Discontinued LORazepam 0.5 mg oral tablet (6 sources) Benzodiazepine Start: 03-04-2023 End: 07-27-2024 take 1 tablet by mouth every twenty-four hours as needed for anxiety LORazepam (Ativan) 0.5 MG tablet Take 0.5 mg by mouth Daily as needed for anxiety 03/04/2023 07/27/2024 Discontinued metroNIDAZOLE 7.5 mg/ml topical lotion (9 sources) Nitroimidazole Antimicrobial Start: 11-27-2021 metroNIDAZOLE (MetroLotion) 0.75 % lotion lotion Apply 1 application topically 1 (one) time each day at the same time 11/27/2021 Active minocycline 100 mg oral capsule (6 sources) Tetracycline-class Drug Start: 02-05-2022 End: 07-27-2024 take 1 capsule by mouth every twelve hours minocycline 100 MG capsule Take 1 capsule by mouth every 12 (twelve) hours 02/05/2022 07/27/2024 Discontinued MULTIPLE VITAMIN PO (16 sources) MULTIPLE VITAMIN PO take by mouth.. 0 Active MULTIPLE VITAMIN PO take by mouth.. Active Multiple Vitamins-Minerals (Oncovite) tablet (9 sources) take 1 tablet by mouth in the morning Multiple Vitamins-Minerals (Oncovite) tablet Take 1 tablet by mouth in the morning. Active Multivitamin preparation (20 sources) Start: 06-26-2023 take 1 tablet by mouth once daily Multivitamin Active 1 TAB PO Daily June 26, 2023 1:00am Multivitamin Act esteban Multivitamin tablet (4 sources) Start: 06-26-2023 take 1 tablet by mouth once daily Multivitamin tablet Active 1 TAB PO Daily June 26, 2023 1:00am Start: 06-26-2023 take 1 tablet by anam th once daily Multivitamin tablet Active 1 TAB PO Daily June 26, 2023 12:00am simvastatin 20 mg oral tablet (20 sources) HMG-CoA Reductase Inhibitor Start: 01-02-2024 End: 08-12-2024 take 1 tablet by mouth once daily in the evening Simvastatin 20 mg tablet Active 0 .ROUTE .COMPLEX 90 August 12, 2024 8:04am TAKE 1 TABLET BY MOUTH ONCE EVERYDAY IN THE EVENING AT 6PM Start: 06-13-2023 End: 01-02-2024 take 1 tablet by mouth once daily Simvastatin 20 mg tablet Discontinued 20 MG PO Daily June 13, 2023 [...] daily. Active tiZANidine 4 mg oral tablet (6 sources) Central alpha-2 Adrenergic Agonist Start: 3 End: 5 take 1 tablet by mouth at bedtime tiZANidine (Zanaflex) 4 MG tablet Take 2-4 mg by mouth at bedtime 01/28/2023 07/27/2024 Discontinued vortioxetine 20 mg oral tablet (20 sources) [...] Take 2 tablets by mouth daily. Lot [id number], Exp 02/14 28 tablet 0 03/30/2018 05/11/2018 [...] Take 1 tablet by mouth daily. Lot [id number], exp 12/15 14 tablet 03/03/2018 03/26/2018 Discontinued Completed/Discontinued Medications Medication Drug Class(es) Dates Sig (Normalized) Sig (Original) acetaminophen 500 mg oral tablet (11 sources) Start: 12-25-2023 End: 04-07-2024 take 2 tablets by mouth every eight hours Acetaminophen 500 mg tablet Discontinued 1000 MG PO Q8H 180 December 25, 2023 12:00am April 07, 2024 10:25am do not reconcile until DOS: 01/05/2024 MED TO BED Start: 12-25-2023 take 1000 mg by mout h every eight hours Acetaminophen Active 1000 MG PO Q8H 180 December 25, 2023 12:00am do not reconcile until DOS: 01/05/2024 MED TO BED ALPRAZolam 0.25 mg oral tablet (5 sources) Benzodiazepine End: 03-30-2018 ALPRAZolam 0.25 MG Tab tablet Take 0.5 mg by mouth as needed for Sleep. 03/30/2018 Discontinued amoxicillin 875 mg / clavulanate 125 mg oral tablet (20 sources) Penicillin-class Antibacterial Start: 09-26-2023 End: 11-19-2023 take 1 tablet by mouth twice daily at mealtime Amoxicillin-Pot Clavulanate 875-125 mg tablet Discontinued 1 TAB PO Twice daily 20 September 26, 2023 11:15am November 19, 2023 8:37am with food aspirin 81 mg delayed release oral tablet (11 sources) Platelet Aggregation Inhibitor, Nonsteroidal Anti-inflammatory Drug Start: 12-25-2023 End: 04-07-2024 take 1 tablet by mouth twice daily Aspirin 81 mg tablet,delayed release (DR/EC) Discontinued 81 MG PO Twice daily 70 35 December 25, 2023 12:00am April 07, 2024 10:25am do not reconcile until DOS: 01/05/2024 MED TO BED bupivacaine hydrochloride 5 mg/ml injectable solution (2 sources) Amide Local Anesthetic Start: 05-02-2020 End: 05-02-2020 bupivacaine (MARCAINE) 0.5 % injection 1 mL calcium carbonate 1500 mg oral tablet (19 sources) Start: 06-26-2023 End: 12-22-2023 take 1 tablet by mouth once daily Calcium Carbonate (Calcium 600) 600 mg calcium (1,500 mg) tablet Discontinued 600 MG PO Daily June 26, 2023 1:00am December 22, 2023 11:54am cariprazine 3 mg oral capsule (12 sources) Atypical Antipsychotic Start: 12-22-2023 End: 06-16-2024 take 1 capsule by mouth once daily Cariprazine (Vraylar) 3 mg capsule Discontinued 3 MG PO Daily December 22, 2023 12:00am June 16, 2024 10:11am cefadroxil 500 mg oral capsule (11 sources) Cephalosporin Antibacterial Start: 12-25-2023 End: 01-21-2024 take 1 capsule by mouth every twelve hours Cefadroxil 500 mg capsule Discontinued 500 MG PO Q12H 14 December 25, 2023 12:00am January 21, 2024 9:29am do not reconcile until DOS: 01/05/2024 MED TO BED cephalexin 500 mg oral capsule (20 sources) Cephalosporin Antibacterial Start: 02-05-2024 End: 04-07-2024 take 1 capsule by mouth three times daily Cephalexin 500 mg capsule Discontinued 500 MG PO Three times daily 15 11February 05, 2024 10:52am April 07, 2024 10:25am Start: 12-22-2023 End: 01-21-2024 take 1 capsule by mouth every eight hours Cephalexin 500 mg capsule Discontinued 500 MG PO Every 8 hours December 22, 2023 12:00am January 21, 2024 9:29am Start: 09-15-2023 End: 09-26-2023 take 1 capsule by mouth three times daily Cephalexin 500 mg capsule Discontinued 500 MG PO Three times daily 15 11September 15, 2023 12:00am September 26, 2023 10:48am 1 ml dexamethasone phosphate 4 mg/ml injection (2 sources) Corticosteroid Start: 05-02-2020 End: 05-02-2020 dexAMETHasone (DECADRON) injection 4 mg docusate sodium 50 mg / sennosides, fci 8.6 mg oral tablet (11 sources) Start: 12-25-2023 End: 01-21-2024 take 2 tablets by mouth once daily Sennosides-Docusat e Sodium (Senokot-S) 8.6-50 mg tablet Discontinued 2 TAB PO daily 60 December 25, 2023 12:00am January 21, 2024 9:29am do not reconcile until DOS: 01/05/2024 MED TO BED lamoTRIgine 100 mg oral tablet (20 sources) Mood Stabilizer, Anti-epileptic Agent Start: 06-13-2023 End: 07-27-2024 take 1 tablet by mouth once daily Lamotrigine 100 mg tablet Discontinued 100 MG PO Daily June 13, 2023 1:00am December 22, 2023 11:52am Start: 05-28-2023 End: 07-27-2024 take 1 tablet by mouth once daily at bedtime Lamotrigine 25 mg tablet Discontinued 25 MG PO Daily at bedtime June 26, 2023 1:00am September 15, 2023 1:58pm Start: 03-29-2020 take 1 tablet by anam th once daily lamoTRIgine 100 MG tablet Take 100 mg by mouth daily. 0 03/29/2020 Active 10 ml lidocaine hydrochloride 10 mg/ml injection (2 sources) Antiarrhythmic, Amide Local Anesthetic Start: 05-02-2020 End: 05-02-2020 lidocaine (XYLOCAINE) 10 mg/mL injection 4 mL meloxicam 15 mg oral tablet (20 sources) Nonsteroidal Anti-inflammatory Drug Start: 06-13-2023 End: 07-27-2024 take 1 tablet by mouth once daily as needed Meloxicam 15 mg tablet Discontinued 15 MG PO Daily as needed September 15, 2023 1:59pm December 12, 2023 9:34am ondansetron 4 mg oral tablet (20 sources) Serotonin-3 Receptor Antagonist Start: 12-25-2023 End: 01-21-2024 take 1 tablet by mouth every eight hours as needed for nausea Ondansetron Hcl 4 mg tablet Discontinued 4 MG PO Q8H as needed for Nausea December 25, 2023 12:00am January 21, 2024 9:29am do not reconcile until DOS: 01/05/2024 MED TO BED Start: 06-26-2023 End: 06-26-2023 Ondansetron 4 mg tablet,disi ntegrating Discontinued MG PO June 26, 2023 1:00am June 26, 2023 10:17am FreeTextSig: dissolve 1 tablet on the tongue Orally q8-12 hours prn; Note: Source Status: Not-TakingundefinedPRN; Refills: 0; Provider: Walker Bowling Start: 06-26-2023 End: 06-26-2023 Ondansetron Discontinued MG PO June 26, 2023 1:00am June 26, 2023 10:17am FreeTextSig: dissolve 1 tablet on the tongue Orally q8-12 hours prn; Note: Source Status: Not-Taking\PRN; Refills: 0; Provider: Walker Bowling Start: 09-02-2022 Ondansetron 4 MG dissolve 1 tablet on the tongue Orally q8-12 hours prn August, Not-Taking/PRN oxyCODONE hydrochloride 5 mg oral tablet (11 sources) Opioid Agonist Start: 12-25-2023 End: 04-07-2024 take 1 tablet by mouth every four hours as needed for pain Oxycodone 5 mg tablet Discontinued 5 MG PO Q4H as needed for Pain 42 7 December 25, 2023 April 07, 2024 10:24am do not reconcile until DOS: 01/05/2024 MED TO BED pantoprazole 20 mg delayed release oral tablet (10 sources) Proton Pump Inhibitor Start: 12-25-2023 End: 04-07-2024 take 1 tablet by mouth once daily Pantoprazole (Protonix) 20 mg tablet,delayed release (DR/EC) Discontinued 20 MG PO daily 35 35 December 25, 2023 12:00am April 07, 2024 10:25am do not reconcile until DOS: 01/05/2024 MED TO BED penicillin v potassium 250 mg oral tablet (4 sources) End: 05-11-2018 take 1 tablet by mouth four times daily penicillin v potassium 250 MG Tab Take 250 mg by mouth 4 times daily. 05/11/2018 Discontinued polyethylene glycol 3350 03793 mg powder for oral solution (11 sources) Osmotic Laxative Start: 12-25-2023 End: 01-21-2024 Polyethylene Glycol 3350 (Miralax) 17 gram/dose powder Discontinued 17 GM PO daily 7 7 December 25, 2023 12:00am January 21, 2024 9:29am 1 packed mixed with 8 ounces of fluid. predniSONE 10 mg oral tablet (11 sources) Start: 12-25-2023 End: 01-21-2024 take 1 tablet by mouth once daily Prednisone 10 mg tablet Discontinued 10 MG PO daily 10 December 25, 2023 12:00am January 21, 2024 9:29am do not reconcile until DOS: 01/05/2024 MED TO BED sildenafil 100 mg oral tablet (20 sources) Phosphodiesterase 5 Inhibitor Start: 06-26-2023 End: 06-26-2023 take 1 tablet by mouth once daily as needed Sildenafil 100 mg tablet Discontinued 1 TAB PO Daily June 26, [...] chloride (PF) 0.9 % injection 5 mL traMADol hydrochloride 50 mg oral tablet (11 sources) Opioid Agonist Start: 12-25-2023 End: 04-07-2024 take 1 tablet by mouth every six hours as needed for pain Tramadol 50 mg tablet Discontinued 50 MG PO q6h as needed for Pain 28 December 25, 2023 12:00am April 07, 2024 10:25am do not reconcile until DOS: 01/05/2024 MED TO BED traZODone hydrochloride 50 mg oral tablet (12 sources) Serotonin Reuptake Inhibitor Start: 12-22-2023 End: 06-16-2024 take 1 tablet by mouth once daily at bedtime as needed Trazodone 50 mg tablet Discontinued 50 MG PO Daily at bedtime as needed for insomnia December 22, 2023 12:00am June 16, 2024 10:13am triamcinolone acetonide 40 mg/ml injectable suspension (14 sources) Corticosteroid Start: 07-12-2022 Kenalog-40 Apr, 120 mg Start: 05-02-2020 End: 05-02-2020 triamcinolone (KENALOG-40) i njection 2 mL 24 hr venlafaxine 37.5 mg extended release oral capsule (20 sources) Serotonin and Norepinephrine Reuptake Inhibitor Start: 06-13-2023 End: 11-19-2023 take 1 capsule by mouth once daily Venlafaxine 37.5 mg capsule,extended release 24hr Discontinued 37.5 MG PO Daily June 13, 2023 1:00am November 19, 2023 8:38am Start: 02-01-2020 take 1 capsule by mo uth once daily venlafaxine 37.5 MG Cap SR 24HR capsule XR Take 37.5 mg by mouth daily. 0 02/01/2020 Active End: 07-27-2024 take 1 tablet by mouth once daily venlafaxine (Effexor) 37.5 MG tablet Take 37.5 mg by mouth 1 (one) time each day at the same time 07/27/2024 Discontinued Problems Active Problems Problem Classification Problem Date [...] 08-28-2022 Episodic Genitourinary symptoms and ill-defined conditions (9 sources) Urge incontinence of urine; Translations: [Urge incontinence] Onset: 06-23-2023 06-23-2023 Chronic Genitourinary symptoms and ill-defined conditions (20 sources) Increased frequency of urination; Translations: [Frequency of micturition] 09-15-2023 Episodic Malaise and fatigue (7 sources) Fatigue; Translations: [Other fatigue] 06-16-2024 Episodic Menopausal disorders (9 sources) Atrophy of vagina; Translations: [Postmenopausal atrophic vaginitis] Onset: 06-23-2023 06-23-2023 Chronic Mood disorders (20 sources) Depressive disorder; Translations: [Recurrent major depression in partial remission] Onset: 10-05-2015 Resolved: 12-06-2021 10-05-2015 Chronic Mood disorders (2 sources) Major depressive disorder, single episode, unspecified; Translations: [Major depressive disorder, single episode, unspecified] Onset: 10-05-2015 Nonspecific chest pain (5 sources) Atypical chest pain; Translations: [Other chest pain] Onset: 08-26-2024 08-26-2024 Episodic Osteoarthritis (20 sources) Osteoarthritis of right hip joint; Translations: [Unilateral primary osteoarthritis, right hip] Onset: 06-23-2023 Chronic Osteoarthritis (3 sources) Osteoarthritis of right hip joint; Translations: [Primary osteoarthritis of right hip] Osteoporosis (19 sources) Osteoporosis; Translations: [Age-related osteoporosis without current pathological fracture] Onset: 11-19-2023 11-19-2023 Chronic Other aftercare (8 sources) Patient encounter status; Translations: [Aftercare following joint replacement surgery] 01-20-2024 Chronic Other aftercare (8 sources) Aftercare following joint replacement surgery; Translations: [Aftercare following joint replacement] Onset: 02-24-2024 01-21-2024 Chronic Other aftercare (15 sources) Long-term current use of drug therapy; Translations: [Other intermediate accountant (current) drug therapy] 11-19-2023 Episodic Other and unspecified benign neoplasm (2 sources) Melanocytic nevus of trunk; Translations: [Melanocytic nevi of trunk] 09-14-2024 Episodic Other connective tissue disease (20 sources) Presence of unspecified artificial hip joint; Translations: [History of repair of hip joint] Onset: 09-25-2016 Resolved: 06-23-2023 09-25-2016 Chronic Other connective tissue disease (11 sources) Presence of right artificial hip joint; Translations: [Hip joint replacement] Onset: 01-21-2024 01-21-2024 Chronic Other connective tissue disease (20 sources) Trochanteric bursitis; Translations: [Trochanteric bursitis, right hip] Onset: 06-23-2023 06-12-2023 Episodic Other connective tissue disease (5 [...] diarrhea] Chronic Other inflammatory condition of skin (9 sources) Rosacea; Translations: [Rosacea, unspecified] Onset: 06-23-2023 06-23-2023 Chronic Other injuries and conditions due to external causes (3 sources) Unspecified injury of head, initial encounter; Translations: [UNSPECIFIED INJURY HEAD INITIAL ENC] Onset: 08-27-2022 Episodic Other injuries and conditions due to external causes (1 source) Other specified injuries of head, initial encounter; Translations: [OTH SPEC INJURIES HEAD INITIAL ENC] Onset: 08-28-2022 Episodic Other nervous system disorders (2 sources) Notalgia paresthetica; Translations: [Paresthesia of skin] 09-14-2024 Episodic Other non-traumatic joint disorders (2 sources) [...] endocrine; and metabolic disorders (6 sources) Weight increased; Translations: [Abnormal weight gain] 06-26-2023 Episodic Other nutritional; endocrine; and metabolic disorders (4 sources) Weight decreased; Translations: [Abnormal weight loss] 06-26-2023 Episodic Other skin disorders (1 source) Nonscarring hair loss, unspecified Episodic Other skin disorders (2 sources) Lentiginosis; Translations: [Other melanin hyperpigmentation] 09-14-2024 Episodic Other skin disorders (2 sources) Papule of skin; Translations: [Other skin changes] 09-14-2024 Episodic Prolapse of female genital organs (11 sources) Cystocele; Translations: [Cystocele, unspecified] Onset: 06-23-2023 06-23-2023 Chronic Residual codes; unclassified (6 sources) Amnesia; Translations: [Other amnesia] Episodic Residual codes; unclassified (1 source) Other amnesia Episodic Residual codes; unclassified (1 source) Decreased libido Episodic Residual codes; unclassified (2 sources) History of bilateral salpingo-oophorectom y; Translations: [Acquired absence of other genital organ(s)] 07-21-2024 Episodic Superficial injury; contusion (4 sources) Contusion of right wrist, initial encounter; Translations: [Contusion of scalp, initial encounter] Onset: 09-15-2017 Episodic Thyroid disorders (7 sources) Thyroid nodule; Translations: [Nontoxic single thyroid nodule] 06-16-2024 Chronic Unclassified (20 sources) Encounter for screening mammogram [...] [Status post hip replacement] Onset: 09-25-2016 09-25-2016 Past or Other Problems Problem Classification Problem Date Documented Date Episodic/Chronic Abdominal pain (20 sources) Pain in female pelvis; Translations: [Pelvic and perineal pain] Onset: 10-23-2016 Resolved: 06-23-2023 10-23-2016 Episodic Fracture of upper limb (19 sources) Unspecified fracture of the lower end of right radius, initial encounter for closed fracture; Translations: [Closed fracture of distal end of radius] Onset: 10-08-2017 Resolved: 06-23-2023 10-09-2017 Episodic Medical examination/evaluatio n (1 source) Laboratory examination, unspecified; Translations: [Laboratory examination, unspecified] Onset: 12-13-2014 Episodic Other aftercare (9 sources) Other detention (current) drug therapy; Translations: [OTH CORRECTION CURRENT DRUG THERAPY] Onset: 02-07-2022 Episodic Other ear and sense organ disorders (1 source) Acute otitis externa; Translations: [Acute swimmer's ear of both sides] Episodic Other female genital disorders (9 sources) Vaginal dryness; Translations: [Other specified noninflammatory disorders of vagina] Onset: 06-23-2023 Resolved: 06-23-2023 06-23-2023 Episodic Other non-traumatic joint disorders (1 source) Pain in right shoulder; Translations: [Pain in right shoulder] Onset: 12-25-2023 Episodic Residual codes; unclassified (11 sources) History of hysterectomy for benign disease; [...] Test Name Value Interpretation Reference Range Facility [facility] perf SPECT rest stron 10-01-2024 [place] [address] Nuclear Medicine Report Signed Patient: Antonino Torres MR#: [id number] : 1955 Acct:[id number] Age/Sex: 68 / F ADM Date: 10/01/24 Loc: [place] Room: Type: [facility] Attending Dr: Lay Alvarez MD Copies to: Lay Alvarez MD Ordering Provider: Lay Alvarez MD Date of Service: 10/01/24 NM/NM whitley perf SPECT rest str: R07.9 NUCLEAR MYOCARDIAL PERFUSION DATE OF PROCEDURE: 10/01/2024 PROCEDURE: The patient achieved a workload of 10.1 METs. During the last one minute of exercise, the patient was then injected with 19.2 millicuries of Technetium 99M Sestamibi one minute before the end of the exercise. For rest images the patient was injected with 6.6 millicuries of Technetium 99M Sestamibi. FINDINGS: The raw cine images were reviewed. The post stress and rest perfusion images were reviewed as well as the computer quantification.? There was uniform uptake of the radiotracer with no perfusion defects identified.? On the gated portion of the study, there was uniform thickening with an overall ejection fraction calculated at 69%.? TID score was within normal limits. CONCLUSION: 1. Gated spect Sestamibi study is within normal limits. 2. Left ventricular function was preserved. Impression dictated by: Lay Alvarez M.D. 10/01/2024 4:24 PM Dictation Location: [place] [address] Transcribed By: SAGAR 10/01/24 1624 Dictated By: Lay Alvarez MD 10/01/24 1623 Signed By: 10/01/24 162 Normal [facility] No Panel InformationOrdered By: Lay Alvarez on 10-01-2024 [facility] [address] [place] [id number] Cardiac Stress Test Signed Patient: Antonino Torres MR#: [id number] : 1955 Date of Service:0 10/01/24 Age/Sex: 68 / F ADM Date: 5 Loc: [place] Room: Type: [facility] Attending Dr: Lay Alvarez MD Copies to: Karen Cardoso,DO Lay Alvarez MD~ INDICATION FOR STUDY/DIAGNOSIS: Chest pain PROCEDURE: After informed consent was obtained, the patient exercised 8 minutes and 30 seconds on a Danny protocol to their maximum tolerated exercise capacity. The peak heart rate achieved was 171 bpm which was 113% of the age predicted maximum. The test was stopped due to fatigue. The patient developed nonlimiting chest pain during the test. Chest pain resolved by 2 minutes of recovery. The peak blood pressure was 182/90 mmHg. The estimated peak oxygen consumption was 10.1 METs. The overall assessment of the patient's functional capacity is normal. The baseline ECG revealed normal sinus rhythm. During exercise and recovery there were no ST-T changes suggestive of ischemia. There were no dysrhythmias noted during the test. [place]resham Treadmill Score was +4. CONCLUSION: 1. Negative ECG exercise stress test. 2. Nonlimiting chest pain at peak exercise which resolved with recovery. 3. Hemodynamic response was appropriate. 4. No dysrhythmias. 5. Functional capacity was normal. 6. [place]am Treadmill Score was +4. 7. Myocardial perfusion imaging report to follow under separate cover. Transcribed By: arianne 10/01/24 1547 Dictated By: Lay Alvarez MD 10/01/24 1547 Signed By: 10/01/24 1552 [facility] Work Phone: [facility] ECG *CARDIOLOGY ONLY*on 08-26-2024 [facility] ECG *CARDIOLOGY ONLY* [facility] [address] [address] Electrocardiograph Report Signed Patient: Antonino Torres MR#: [id number] : 1955 Acct:[id number] Age/Sex: 68 / F ADM Date: 08/26/24 Loc: [facility] Room: Type: [facility] Attending Dr: Lay Alvarez MD Ordering Provider: Lay Alvarez MD Date of Service: 08/26/2405/22/1303 ECG/FPG ECG *CARDIOLOGY ONLY*: R07.9 - Chest pain, unspecified Copies to: Test Reason : Blood Pressure : */* mmHG Vent. Rate : 63 BPM Atrial Rate : 63 BPM P-R Int : 148 ms QRS Dur : 78 ms QT Int : 402 ms P-R-T Axes : 58 3 61 degrees QTcB Int : 411 ms Normal sinus rhythm Normal ECG Confirmed by Lay Alvarez ([id number]) on 08/26/2024 3:26:34 PM Referred By: Electronically Signed By: Lay Alvarez Transcribed By: MUS Signed By Lay Alvarez MD 5 1526 Normal [facility] BI MAMMOGRAM SCREENING TOMOS YNTHESIS BILATERALon 07-27-2024 BI MAMMOGRAM SCREENING TOMOSYNTHESIS BILATERAL This is a summary report. The complete report is available in the patient's medical record. If you cannot access the medical record, please contact the sending organization for a detailed fax or copy. Examination: BI MAMMOGRAM SCREENING TOMOSYNTHESIS BILATERAL Clinical [...] node on the left appears grossly unremarkable. IMPRESSION: Impression: No specific evidence of malignancy seen in either breast. BIRADS 2 - Benign Findings DENSITY: The breasts are almost entirely fatty. FOLLOW-UP: Routine Screening Mammogram ELECTRONICALLY SIGNED BY: Yeyo Mahajan M.D. Normal Not Available Basophils Auto (Bld) [#/Vol] on 06-11-2024 Basophils (Bld) [#/Vol] Automated basophil count 0.0-0.1 [facility] Basophils/100 WBC Auto (Bld) on 02-14-2025 Basophils/100 WBC (Bld) Automated basophil % 0.2-2.0 [facility] Cholesterol in LDL Calc [Mas s/Vol]on 06-11-2024 Cholesterol in LDL [Mass/Vol] Cholesterol in LDL [Mass/volume] in Serum or Plasma by calculation [facility] Comment on above: <100 mg/dl [id number] 0-129 mg/dl NEAR OR ABOVE [id number] mg/dl BORDERLINE [id number] mg/dl HIGH>190 mg/dl VERY HIGH Cholesterol in VLDL Calc [Ma ss/Vol]on 06-11-2024 Cholesterol in VLDL [Mass/Vol] Cholesterol in VLDL [Mass/volume] in Serum or Plasma by calculation [facility] Eosinophils/100 WBC Auto (Bl d)on 06-11-2024 Eosinophils/100 WBC (Bld) Automated eosinophil % 0.9-7.0 [facility] Erythrocyte distribution wid th Auto (RBC) [Ratio]on 06-11-2024 Erythrocyte distribution width (RBC) [Ratio] Erythrocyte distribution width [Ratio] by Automated count 11.0-15.0 [facility] Estimated glomerular filtrat ion rate (GFR) non- Americanon 06-11-2024 GFR/1.73 sq M.predicted among non-blacks MDRD (S/P/Bld) [Vol rate/Area] Estimated glomerular filtration rate (GFR) non- >=60 mL/min/1.7 3m 2 [facility] Globulin Calc (S) [Mass/Vol] on 06-11-2024 Globulin (S) [Mass/Vol] Serum globulin measurement by calculation (mass/volume) [facility] Glucose mean value [Mass/vol ume] in Blood Estimated from glycated hemoglobinon 06-11-2024 Average glucose Estimated from glycated hemoglobin (Bld) [Mass/Vol] Glucose mean value [Mass/volume] in Blood Estimated from glycated hemoglobin [facility] Hematocrit Auto (Bld) [Volum e fraction]on 06-11-2024 Hematocrit (Bld) [Volume fraction] Hematocrit [Volume Fraction] of Blood by Automated count 36.0-48.0 [facility] Hemoglobin A1c percentageon 06-11-2024 HbA1c (Bld) [Mass fraction] Hemoglobin A1c percentage 4.5-6.2 [facility] Comment on above: ADA RECOMMENDED LIMI T 4.0 - 6.0ADA THERAPEUTIC TARGET < 7.0ACTION SUGGESTED> 7.0 Hemoglobin [Mass/volume] in Bloodon 06-11-2024 Hemoglobin (Bld) [Mass/Vol] Hemoglobin [Mass/volume] in Blood 12.0-16.0 [facility] Laboratory - Chemistry and C hemistry - challengeon 06-11-2024 Bilirubin Ql (U) Negative NEGATIVE [facility] Glucose (U) [Mass/Vol] Negative NEGATIVE [facility] Ketones Ql (U) Negative NEGATIVE [facility] pH (U) 6.0 [pH] 5.0-9.0 [facility] Specific gravity (U) [Rel density] 1.020 1.005-1.02 5 [facility] Urobilinogen Qn (U) 0.2 {Sajan'U}/dL 0.2-1.0 [facility] Albumin [Mass/Vol] 3.6 g/dL 3.4-5.0 [facility] ALP [Catalytic activity/Vol] 93 U/L 46-116 [facility] ALT [Catalytic activity/Vol] 24 U/L 14-59 [facility] AST [Catalytic activity/Vol] 22 U/L 15-37 [facility] Bilirubin [Mass/Vol] 0.8 mg/dL 0.2-1.0 [facility] Calcium [Mass/Vol] 8.6 mg/dL 8.5-10.1 [facility] Chloride [Moles/Vol] 106 mmol/L 98-107 [facility] Cholesterol [Mass/Vol] 145 mg/dL <=200 [facility] Cholesterol in HDL [Mass/Vol] 57 mg/dL 40-60 [facility] Comment on above: > or =60 mg/dl - LOW CARDIOVASCULAR RISK<40 mg/dl - HIGH CARDIOVASCULAR RISK CO2 [Moles/Vol] 29.6 mmol/L 21.0-32.[address] [facility] Creatinine [Mass/Vol] 0.68 mg/dL 0.55-1.02 [facility] GFR/1.73 sq M.predicted MDRD (S/P/Bld) [Vol rate/Area] mL/min/{1.73_m2} >=60 mL/min/1.7 3m 2 [facility] Glucose [Mass/Vol] 98 mg/dL 74-106 [facility] Potassium [Moles/Vol] 3.7 mmol/L 3.5-5.1 [facility] Protein [Mass/Vol] 7.0 g/dL 6.4-8.2 [facility] Sodium [Moles/Vol] 143 mmol/L 136-145 [facility] Triglyceride [Mass/Vol] 117 mg/dL <=150 [facility] Urea nitrogen [Mass/Vol] 10.0 mg/dL 7.0-18.0 [facility] Urea nitrogen/Creatinine [Mass ratio] 14.7 mg/mg [facility] Laboratory - Hematology and Cell countson 06-11-2024 Immature granulocytes/100 WBC (Bld) 0.2 % 0.0-0.5 [facility] Laboratory - Specimen inform ationon 06-11-2024 Appearance (U) CLEAR CLEAR [facility] Color (U) YELLOW YELLOW [facility] Laboratory - Urinalysison Leukocyte esterase Test strip Ql (U) TRACE Abnormal NEGATIVE [facility] Mucus Ql (Urine sed) MODERATE Abnormal NONE SEEN [facility] Nitrite Ql (U) Negative NEGATIVE [facility] Protein Ql (U) Negative NEG/TRACE [facility] Leukocytes [#/volume] correc main for nucleated erythrocytes in Blood by Automated counon 06-11-2024 WBC corrected for nucl RBC Auto (Bld) [#/Vol] Leukocytes [#/volume] corrected for nucleated erythrocytes in Blood by Automated coun 4.0-11.0 [facility] Lymphocytes Auto (Bld) [#/Vo l]on 06-11-2024 Lymphocytes (Bld) [#/Vol] Lymphocytes [#/volume] in Blood by Automated count 1.2-3.8 [facility] Lymphocytes/100 WBC Auto (Bl d)on 06-11-2024 Lymphocytes/100 WBC (Bld) Lymphocytes/100 leukocytes in Blood by Automated count Low 20.5-60.0 [facility] MCH Auto (RBC) [Entitic mass ]on 06-11-2024 MCH (RBC) [Entitic mass] MCH [Entitic mass] by Automated count 26.7-34.0 [facility] MCHC Auto (RBC) [Mass/Vol]on 06-11-2024 MCHC (RBC) [Mass/Vol] MCHC [Mass/volume] by Automated count 29.9-35.2 [facility] MCV Auto (RBC) [Entitic vol] on 06-11-2024 MCV (RBC) [Entitic vol] MCV [Entitic volume] by Automated count 81.0-99.0 [facility] Monocytes Auto (Bld) [#/Vol] on 06-11-2024 Monocytes (Bld) [#/Vol] Automated blood monocyte count 0.3-0.8 [facility] Monocytes/100 WBC Auto (Bld) on 06-11-2024 Monocytes/100 WBC (Bld) Automated monocyte % 1.7-12.0 [facility] Neutrophils Auto (Bld) [#/Vo l]on 06-11-2024 Neutrophils (Bld) [#/Vol] Neutrophils [#/volume] in Blood by Automated count High 1.4-6.5 [facility] Neutrophils/100 WBC Auto (Bl d)on 06-11-2024 Neutrophils/100 WBC (Bld) Automated neutrophil % 43.0-75.0 [facility] No Panel Informationon 06-11 Urine Bacteria SMALL #/HPF Abnormal NONE SEEN [facility] Urine Culture Reflexed ALREADY ORDERED [facility] Urine Occult Blood Negative NEGATIVE [facility] Urine Other Casts NONE SEEN #/LPF NONE SEEN [facility] Urine Other Crystals None Seen #/HPF None Seen [facility] Urine RBC 0-2 #/HPF 0-2 [facility] Urine Squamous Epithelial Cells FEW #/LPF Abnormal NONE/RARE [facility] Urine Transitional Epithelial Cells RARE #/LPF Abnormal NONE SEEN [facility] Urine WBC 2-5 #/HPF Abnormal NONE SEEN [facility] Eosinophils # (Auto) 0.3 10 3/uL 0.0-0.7 [facility] Immature Granulocyte # (Auto) 0.02 10 3/uL 0.00-0.03 [facility] Platelet mean volume Auto (B ld) [Entitic vol]on 06-11-2024 Platelet mean volume (Bld) [Entitic vol] Platelet mean volume [Entitic volume] in Blood by Automated count Low 9.5-13.5 [facility] Platelets Auto (Bld) [#/Vol] on 06-11-2024 Platelets (Bld) [#/Vol] Platelets [#/volume] in Blood by Automated count 150-450 [facility] RBC Auto (Bld) [#/Vol]on RBC (Bld) [#/Vol] Erythrocytes [#/volu me] in Blood by Automated count 4.20-5.40 [facility] Serum or plasma albumin/glob ulin mass ratioon 06-11-2024 Albumin/Globulin [Mass ratio] Serum or plasma albumin/globulin mass ratio [facility] Serum or plasma anion gap de terminationon 06-11-2024 Anion gap [Moles/Vol] Serum or plasma anion gap determination [facility] Serum or plasma total choles terol/high density lipoprotein (HDL) cholesterol mass amador 06-11-2024 Cholesterol.total/Ch olesterol in HDL [Mass ratio] Serum or plasma total cholesterol/high density lipoprotein (HDL) cholesterol mass rat [facility] Comment on above: 3.3 - 4.4 LOW RISK4. 4 - 7.1 AVERAGE RISK7.1 - 11.0 MODERATE RISK>11.0 HIGH RISK XR hip RT min 2V(w/wo pelvis )*on 04-07-2024 XR hip RT min 2V(w/wo pelvis)* [facility] [address] [employer] [address] XRay Report Signed Patient: Antonino Torres MR#: [id number] : 1955 Acct:[id number] Age/Sex: 68 / F ADM Date: 04/07/24 Loc: [facility] Room: Type: [facility] Attending Dr: Finn Ortez II, MD Copies [...] Gary Ley M.D.04/07/2024 2:14 PM Dictation Location: [place] [address] Transcribed By: [facility] 04/07/24 141 Dictated By: Gary Ley DO 04/07/24 141 Signed By: 04/07/24 141 Normal [facility] XR hip RT min 2V(w/wo pelvis )*on 02-24-2024 XR hip RT min 2V(w/wo pelvis)* [facility] [address] [place] [address] XRay Report Signed Patient: Antonino Torres MR#: [id number] : 1955 Acct:[id number] Age/Sex: 68 / F ADM Date: 02/24/24 Loc: [facility] Room: Type: [facility] Attending Dr: Finn Ortez II, MD Copies [...] 1:05 PM Dictation Location: RADIO-PC-23 Transcribed By: [facility] 02/24/24 1305 Dictated By: Silvina Rolon MD 02/24/24 1303 Signed By: 02/24/24 1305 Normal [facility] Laboratory - Chemistry and C hemistry - challengeon 02-05-2024 Bilirubin Ql (U) Negative NEGATIVE [facility] Glucose (U) [Mass/Vol] Negative NEGATIVE [facility] Ketones Ql (U) Negative NEGATIVE [facility] pH (U) 6.0 [pH] 5.0-9.0 [facility] Specific gravity (U) [Rel density] <=1.005 Abnormal 1.005-1.02 5 [facility] Urobilinogen Qn (U) 0.2 {Sajan'U}/dL 0.2-1.0 [facility] Laboratory - Specimen inform ationon 02-05-2024 Appearance (U) CLEAR CLEAR [facility] Color (U) LT. YELLOW YELLOW [facility] Laboratory - Urinalysison Leukocyte esterase Test strip Ql (U) Negative NEGATIVE [facility] Mucus Ql (Urine sed) NONE SEEN NONE SEEN [facility] Nitrite Ql (U) Negative NEGATIVE [facility] Protein Ql (U) Negative NEG/TRACE [facility] No Panel Informationon 02-04 Miscellaneous Test Comment See comment [facility] Comment on above: Specimen Source: UCC - Urine,Clean Catch - Urine CC - 200.100 Urine Bacteria TRACE #/HPF Abnormal NONE SEEN [facility] Urine Culture Reflexed NO [facility] Urine Culture Result 1 \R\ Urine Culture, Routine [facility] Urine Occult Blood TRACE-I NEGATIVE [facility] Urine Other Casts NONE SEEN #/LPF [facility] Urine Other Crystals None Seen #/HPF None Seen [facility] Urine RBC NONE SEEN #/HPF 0-2 [facility] Urine Squamous Epithelial Cells RARE #/LPF NONE/RARE [facility] Urine WBC NONE SEEN #/HPF NONE SEEN [facility] XR hip RT min 2V(w/wo pelvis )*on 01-21-2024 XR hip RT min 2V(w/wo pelvis)* [facility] [address] [place] [address] XRay Report Signed Patient: Antonino Torres MR#: [id number] : 1955 Acct:[id number] Age/Sex: 68 / F ADM Date: 01/21/24 Loc: [facility] Room: Type: [facility] Attending Dr: Finn Ortez II, MD Copies [...] COMPLICATION.. Impression dictated by: Isidro Trinidad Jr., D.OElla01/21/2024 12:36 PM Dictation Location: [place] [address] Transcribed By: [facility] 01/21/24 1236 Dictated By: Isidro Trinidad Jr, DO 01/21/24 1234 Signed By: 01/21/24 1236 Normal [facility] ABO/Rh Retypeon 01-05-2024 ABO/RH Recheck Result Positive Normal [facility] Comment on above: Result Comment: PERF ORMED BY: [facility] [address] [place] [address] PATHOLOGIST COMMUNICATIONS ADMINISTRATOR KOMAL Babb 01-05-2024 L Specimen: [id number] Received: 01/06/24-1047 Status: SOUT Req Num: [id number] Spec Type: Surgical Subm Dr: Finn Ortez MD Tissues: A Femoral Head - Other than Fracture (R HIP) Procedures: HE/2, Gross/Micro L3, Decalcification Age/ Patient Sex Location Account Attending Physician BrianAntonino Felipa 68/F [place] [id number] Finn Ortez MD SPEC NUM: [id number] RECD: 01/06/24 STATUS: MELISSA CONDE NUM: [id number] JASKARAN: 01/05/[address] [facility] [address]: Finn Ortez MD ENTERED: 01/06/[address] [facility] [address]: JEAN-PIERRE TYPE: Surgical DEPT: S ENTERED BY: [id number] RECV BY: [id number] ORDERED: HE/2, Gross/Micro L3, Decalcification ORDERED: HE/2, [...] greatest dimension. Moderate osteophytic lipping grossly identified. Watershed Manager sections are as follows: A1 eburnation, (submitted in decal before routine processing) A2 osteophytic lipping and soft tissue, (submitted in decal before routine processing) CPT Codes 22968 Specimen: [id number] Received: 01/06/24 Status: MELISSA Conde Num: [id number] Spec Type: Surgical Subm Dr: Finn Ortez MD Tissues: A Femoral Head - Other than Fracture (R HIP) Procedures: HE/2, Gross/Micro L3, Decalcification Patient: Antonino Torres [id number] (Continued) Signed (signature on file) Mary Mccarthy MD 01/15/241914 Normal [facility] XR hip RT 1Von 01-05-2024 XR hip RT [address] [address] XRay Report Signed Patient: Antonino Torres MR#: [id number] : 1955 Acct:[id number] Age/Sex: 68 / F ADM Date: 01/05/24 Loc: [place] Room: Type: [facility] Attending Dr: Finn Ortez II, MD [...] Justen Jenkins M.D.01/05/2024 11:48 AM Dictation Location: RADIO--07 Transcribed By: [facility] 01/05/24 1148 Dictated By: Justen Jenkins II, MD 01/05/24 1147 Signed By: 01/05/24 1148 Normal [facility] XR low pelvis w/RT x-table h ipon 01-05-2024 XR low pelvis w/RT x-table hip [place] [address] XRay Report Signed Patient: Antonino Torres MR#: [id number] : 1955 Acct:[id number] Age/Sex: 68 / F ADM Date: 01/05/24 Loc: [place] Room: Type: [facility] Attending Dr: Finn Ortez II, MD Copies [...] Gary Ley M.D.01/05/2024 4:38 PM Dictation Location: [facility] Transcribed By: [facility] 01/05/24 1638 Dictated By: Gary Ley DO 01/05/24 1637 Signed By: 01/05/24 1638 Normal [facility] Automated basophil %Ordered By: Finn Ortez on 12-22-2023 Basophils/100 WBC (Bld) 0.2 % Normal . [facility] Comment on above: Performed By: #### F RUC #### [facility] , #### CBC #### [address] Automated basophil countOrde red By: Finn Ortez on 12-22-2023 Basophils (Bld) [#/Vol] 0.0 10*3/uL Normal 0.0-0.2 [facility] Comment on above: Result Comment: PERF ORMED BY: [place] [address] PATHOLOGIST COMMUNICATIONS ADMINISTRATOR KOMAL COFFMAN M.D. Performed By: #### F RUC #### [facility] , #### CBC #### [address] Automated blood monocyte cou ntOrdered By: Finn Ortez on 12-22-2023 Monocytes (Bld) [#/Vol] 0.5 10*3/uL Normal 0.0-0.8 [facility] Comment on above: Performed By: #### F RUC #### [facility] , #### CBC #### [address] Automated eosinophil %Ordere d By: Finn Ortez on 12-22-2023 Eosinophils/100 WBC (Bld) 2.0 % Normal . [facility] Comment on above: Performed By: #### F RUC #### [facility] , #### CBC #### [address] Automated eosinophil countOr dered By: Finn Ortez on 12-22-2023 Eosinophils (Bld) [#/Vol] 0.1 10*3/uL Normal 0.0-0.45 [facility] Comment on above: Performed By: #### F RUC #### [facility] , #### CBC #### [address] Automated monocyte %Ordered By: Finn Ortez on 12-22-2023 Monocytes/100 WBC (Bld) 7.0 % Normal . [facility] Comment on above: Performed By: #### F RUC #### [facility] , #### CBC #### [address] Automated neutrophil %Ordere d By: Finn Ortez on 12-22-2023 Neutrophils/100 WBC (Bld) 62.4 % Normal . [facility] Comment on above: Performed By: #### F RUC #### [facility] , #### CBC #### [address] Complete Blood Count Auto Di ffon 12-22-2023 Mean Corpuscular HGB Conc 33.6 g/dL Normal 32.0-35.0 [facility] Comment on above: Performed By: #### F RUC #### [facility] , #### CBC #### [address] NRBC% 0.1 /100{WBC} Normal 0-0.5 [facility] Comment on above: Performed By: #### F RUC #### [facility] , #### CBC #### [address] Erythrocyte distribution wid th [Ratio] by Automated countOrdered By: Finn Ortez on 12-22-2023 Erythrocyte distribution width (RBC) [Ratio] 14.2 % Normal 11.9-15.3 [facility] Comment on above: Performed By: #### F RUC #### [facility] , #### CBC #### [address] Erythrocytes [#/volume] in B lood by Automated countOrdered By: Finn Ortez on 12-22-2023 RBC (Bld) [#/Vol] 4.41 10*6/uL Normal 3.60-5.00 [facility] Comment on above: Performed By: #### F RUC #### [facility] , #### CBC #### [facility] [address] Fructosamineon 12-22-2023 Fructosamine 216 umol/L Normal 0-285 [facility] Comment on above: Result Comment: Publ ished reference interval for apparently healthy subjects between age 20 and 60 is 205 - 285 umol/L and in a poorly controlled diabetic population is 228 - 563 umol/L with a mean of 396 umol/L. Performed at: [facility] [place] [address] [place], [place] [id number] Director Community Organization: Chang Quinteros PhD, Phone: [phone] PERFORMED BY: [place] [address] PATHOLOGIST COMMUNICATIONS ADMINISTRATOR KOMAL COFFMAN M.D. Performed By: #### F RUC ####[facility] ,#### CBC ####[facility] Fructosamine [Moles/volume] in Serum or PlasmaOrdered By: Finn Ortez on 12-22-2023 Fructosamine [Moles/Vol] 216 umol/L 0-285 [facility] Comment on above: Published reference interval for apparently healthysubjects between age 20 and 60 is 205 - 285 umol/L and in apoorly controlled diabetic population is 228 - 563 umol/Lwith a mean of 396 umol/L.Performed at: [facility] [address] [place], [place] [id number] Director: Chang Quinteros PhD, Phone: [phone] Hematocrit [Volume Fraction] of Blood by Automated countOrdered By: Finn Ortez on 12-22-2023 Hematocrit (Bld) [Volume fraction] 38.6 % Normal 34.0-46.4 [facility] Comment on above: Performed By: #### F RUC #### [facility] , #### CBC #### [facility] [address] Hemoglobin [Mass/volume] in BloodOrdered By: Finn Ortez on 12-22-2023 Hemoglobin (Bld) [Mass/Vol] 13.0 g/dL Normal 11.8-15.4 [facility] Comment on above: Performed By: #### F RUC #### [facility] , #### CBC #### [address] Leukocytes [#/volume] correc main for nucleated erythrocytes in Blood by Automated counOrdered By: Finn Ortez on 12-22-2023 WBC corrected for nucl RBC Auto (Bld) [#/Vol] 6.8 10*3/uL 3.8-11.6 [facility] Leukocytes [#/volume] in Blo od by Automated countOrdered By: Finn Ortez on 12-22-2023 WBC (Bld) [#/Vol] 6.8 10*3/uL Normal 3.8-11.6 [facility] Comment on above: Performed By: #### F RUC #### [facility] , #### CBC #### [facility] [address] [place] [address] [place] Lymphocytes [#/volume] in Bl ood by Automated countOrdered By: Finn Ortez on 12-22-2023 Lymphocytes (Bld) [#/Vol] 1.9 10*3/uL Normal 1.00-4.8 [facility] Comment on above: Performed By: #### F RUC #### [facility] , #### CBC #### [facility] [address] [place] [address] [place] Lymphocytes/100 leukocytes i n Blood by Automated countOrdered By: Finn Ortez on 12-22-2023 Lymphocytes/100 WBC (Bld) 28.4 % Normal . [facility] Comment on above: Performed By: #### F RUC #### [facility] , #### CBC #### [facility] [address] [place] [address] MCH [Entitic mass] by Automa main countOrdered By: Finn Ortez on 12-22-2023 MCH (RBC) [Entitic mass] 29.4 pg Normal 24.7-34.3 [facility] Comment on above: Performed By: #### F RUC #### [facility] , #### CBC #### [address] MCHC Auto (RBC) [Mass/Vol]Or dered By: Finn Ortez on 12-22-2023 MCHC (RBC) [Mass/Vol] 33.6 g/dL 32.0-35.0 [facility] MCV [Entitic volume] by Auto mated countOrdered By: Finn Ortez on 12-22-2023 MCV (RBC) [Entitic vol] 87.4 fL Normal 80-100 [facility] Comment on above: Performed By: #### F RUC #### [facility] , #### CBC #### [address] Neutrophils [#/volume] in Bl ood by Automated countOrdered By: Finn Otrez on 12-22-2023 Neutrophils (Bld) [#/Vol] 4.3 10*3/uL Normal 1.8-7.7 [facility] Comment on above: Performed By: #### F RUC #### [facility] , #### CBC #### [facility] [address] [place] [address] Nucleated erythrocytes [Pres ence] in Blood by Automated countOrdered By: Finn Ortez on 12-22-2023 Nucleated RBC Auto Ql (Bld) 0.1 /100{WBC} 0-0.5 [facility] PST Type and Screenon 2023 ABO and Rh group Nom (Bld) Blood group O Rh(D) positive Normal [facility] Comment on above: Order Comment: Date of Surgery: [id number] Result Comment: PERF ORMED BY: [place] [address] PATHOLOGIST COMMUNICATIONS ADMINISTRATOR KOMAL COFFMAN M.D. Platelet mean volume [Entiti c volume] in Blood by Automated countOrdered By: Finn Ortez on 12-22-2023 Platelet mean volume (Bld) [Entitic vol] 7.4 fL Normal 6.3-10.7 [facility] Comment on above: Performed By: #### F RUC #### [facility] , #### CBC #### [facility] [address] [place] [address] Platelets [#/volume] in Bloo d by Automated countOrdered By: Finn Ortez on 12-22-2023 Platelets (Bld) [#/Vol] 306 10*3/uL Normal 150-450 [facility] Comment on above: Performed By: #### F RUC #### [facility] , #### CBC #### [facility] [address] [place] [address] Basophils Auto (Bld) [#/Vol] on 12-19-2023 Basophils (Bld) [#/Vol] 0.1 10 3/uL 0.0-0.1 [facility] Basophils/100 WBC Auto (Bld) on 12-19-2023 Basophils/100 WBC (Bld) 0.4 % 0.2-2.0 [facility] Eosinophils/100 WBC Auto (Bl d)on 12-19-2023 Eosinophils/100 WBC (Bld) 1.2 % 0.9-7.0 [facility] Erythrocyte distribution wid th Auto (RBC) [Ratio]on 12-19-2023 Erythrocyte distribution width (RBC) [Ratio] 13.7 % 11.0-15.0 [facility] Estimated glomerular filtrat ion rate (GFR) non- Americanon 12-19-2023 GFR/1.73 sq M.predicted among non-blacks MDRD (S/P/Bld) [Vol rate/Area] mL/min/{1.73_m2} >=60 [facility] Globulin Calc (S) [Mass/Vol] on 12-19-2023 Globulin (S) [Mass/Vol] 2.9 g/dL [facility] Hematocrit Auto (Bld) [Volum e fraction]on 12-19-2023 Hematocrit (Bld) [Volume fraction] 40.6 % 36.0-48.0 [facility] Hemoglobin [Mass/volume] in Bloodon 12-19-2023 Hemoglobin (Bld) [Mass/Vol] 13.3 g/dL 12.0-16.0 [facility] INR in Platelet poor plasma by Coagulation assayon 12-19-2023 INR Coag (PPP) [Relative time] 0.95 {INR} [facility] Comment on above: DESIRED INR:2.0-3.0 CONDITIONS NOT LISTED BELOW2.5-3.5 FOR PROSTHETIC HEART VALVE REPLACEMENT2.5-3.5 RECURRENT THROMBOSIS Laboratory - Chemistry and C hemistry - challengeon 12-19-2023 Bilirubin Ql (U) Negative NEGATIVE [facility] Glucose (U) [Mass/Vol] Negative NEGATIVE [facility] Ketones Ql (U) 40 mg/dL Abnormal NEGATIVE [facility] pH (U) 5.5 [pH] 5.0-9.0 [facility] Specific gravity (U) [Rel density] >=1.030 Abnormal 1.005-1.02 5 [facility] Urobilinogen Qn (U) 0.2 {Sajan'U}/dL 0.2-1.0 [facility] Albumin [Mass/Vol] 4.0 g/dL 3.4-5.0 [facility] ALP [Catalytic activity/Vol] 90 U/L 46-116 [facility] ALT [Catalytic activity/Vol] 34 U/L 14-59 [facility] AST [Catalytic activity/Vol] 27 U/L 15-37 [facility] Bilirubin [Mass/Vol] 0.6 mg/dL 0.2-1.0 [facility] Calcium [Mass/Vol] 9.2 mg/dL 8.5-10.1 [facility] Chloride [Moles/Vol] 104 mmol/L 98-107 [facility] CO2 [Moles/Vol] 28.2 mmol/L 21.0-32.[address] [facility] Creatinine [Mass/Vol] 0.79 mg/dL 0.55-1.02 [facility] GFR/1.73 sq M.predicted MDRD (S/P/Bld) [Vol rate/Area] mL/min/{1.73_m2} >=60 [facility] Glucose [Mass/Vol] 93 mg/dL 74-106 [facility] Potassium [Moles/Vol] 3.6 mmol/L 3.5-5.1 [facility] Protein [Mass/Vol] 6.9 g/dL 6.4-8.2 [facility] Sodium [Moles/Vol] 142 mmol/L 136-145 [facility] Urea nitrogen [Mass/Vol] 14.0 mg/dL 7.0-18.0 [facility] Urea nitrogen/Creatinine [Mass ratio] 17.7 mg/mg [facility] Laboratory - Hematology and Cell countson 12-19-2023 Immature granulocytes/100 WBC (Bld) 0.3 % 0.0-0.5 [facility] Laboratory - Specimen inform ationon 12-19-2023 Appearance (U) SL CLOUDY CLEAR [facility] Color (U) YELLOW YELLOW [facility] Laboratory - Urinalysison Leukocyte esterase Test strip Ql (U) Negative NEGATIVE [facility] Mucus Ql (Urine sed) TRACE Abnormal NONE SEEN [facility] Nitrite Ql (U) Negative NEGATIVE [facility] Protein Ql (U) TRACE mg/dL NEG/TRACE [facility] Leukocytes [#/volume] correc main for nucleated erythrocytes in Blood by Automated counon 12-19-2023 WBC corrected for nucl RBC Auto (Bld) [#/Vol] 13.9 10 3/uL High 4.0-11.0 [facility] Lymphocytes Auto (Bld) [#/Vo l]on 12-19-2023 Lymphocytes (Bld) [#/Vol] 2.3 10 3/uL 1.2-3.8 [facility] Lymphocytes/100 WBC Auto (Bl d)on 12-19-2023 Lymphocytes/100 WBC (Bld) 16.7 % Low 20.5-60.0 [facility] MCH Auto (RBC) [Entitic mass ]on 12-19-2023 MCH (RBC) [Entitic mass] 29.2 pg 26.7-34.0 [facility] MCHC Auto (RBC) [Mass/Vol]on 12-19-2023 MCHC (RBC) [Mass/Vol] 32.8 g/dL 29.9-35.2 [facility] MCV Auto (RBC) [Entitic vol] on 12-19-2023 MCV (RBC) [Entitic vol] 89.2 fL 81.0-99.0 [facility] Monocytes Auto (Bld) [#/Vol] on 12-19-2023 Monocytes (Bld) [#/Vol] 1.2 10 3/uL High 0.3-0.8 [facility] Monocytes/100 WBC Auto (Bld) on 12-19-2023 Monocytes/100 WBC (Bld) 8.8 % 1.7-12.0 [facility] Neutrophils Auto (Bld) [#/Vo l]on 12-19-2023 Neutrophils (Bld) [#/Vol] 10.1 10 3/uL High 1.4-6.5 [facility] Neutrophils/100 WBC Auto (Bl d)on 12-19-2023 Neutrophils/100 WBC (Bld) 72.6 % 43.0-75.0 [facility] No Panel Informationon 12-18 Urine Bacteria MODERATE #/HPF Abnormal NONE SEEN [facility] Urine Calcium Oxalate Crystals RARE [facility] Urine Culture Reflexed YES [facility] Urine Microscopic Review YES [facility] Urine Occult Blood LARGE Abnormal NEGATIVE [facility] Urine Other Casts SEEN #/LPF Abnormal NONE SEEN [facility] Urine Other Crystals Seen #/HPF Abnormal None Seen [facility] Urine RBC 75-100 #/HPF Abnormal 0-2 [facility] Urine Squamous Epithelial Cells FEW #/LPF Abnormal NONE/RARE [facility] Urine WBC 2-5 #/HPF Abnormal NONE SEEN [facility] Eosinophils # (Auto) 0.2 10 3/uL 0.0-0.7 [facility] Immature Granulocyte # (Auto) 0.04 10 3/uL High 0.00-0.03 [facility] Troponin I High Sensitivity 5.1 pg/mL 4.0-51.3 [facility] Comment on above: CUT-OFF POINTS HAVE BEEN [...] (Bld) [Entitic vol] 9.0 fL Low 9.5-13.5 [facility] Platelets Auto (Bld) [#/Vol] on 12-19-2023 Platelets (Bld) [#/Vol] 300 10 3/uL 150-450 [facility] Prothrombin time (PT)on 11-27 PT Coag (PPP) [Time] 10.1 s 9.0-11.6 [facility] RBC Auto (Bld) [#/Vol]on RBC (Bld) [#/Vol] 4.55 10 6/uL 4.20-5.40 [facility] Serum or plasma albumin/glob ulin mass ratioon 12-19-2023 Albumin/Globulin [Mass ratio] 1.4 {ratio} [facility] Serum or plasma anion gap de terminationon 12-19-2023 Anion gap [Moles/Vol] 13.4 mmol/L [facility] Yeast detection in urine sed iment by light microscopyon 12-19-2023 Yeast LM Ql (Urine sed) SEEN Abnormal NONE SEEN [facility] Basophils Auto (Bld) [#/Vol] on 12-06-2023 Basophils (Bld) [#/Vol] 0.1 10 3/uL 0.0-0.1 [facility] Basophils/100 WBC Auto (Bld) on 12-06-2023 Basophils/100 WBC (Bld) 1.0 % 0.2-2.0 [facility] Cholesterol in LDL Calc [Mas s/Vol]on 12-06-2023 Cholesterol in LDL [Mass/Vol] 105.0 mg/dL [facility] Comment on above: <100 mg/dl [id number] 0-129 mg/dl NEAR OR ABOVE [id number] mg/dl BORDERLINE [id number] mg/dl HIGH>190 mg/dl VERY HIGH Cholesterol in VLDL Calc [Ma ss/Vol]on 12-06-2023 Cholesterol in VLDL [Mass/Vol] 21.0 mg/dL [facility] Eosinophils/100 WBC Auto (Bl d)on 12-06-2023 Eosinophils/100 WBC (Bld) 3.7 % 0.9-7.0 [facility] Erythrocyte distribution wid th Auto (RBC) [Ratio]on 12-06-2023 Erythrocyte distribution width (RBC) [Ratio] 13.8 % 11.0-15.0 [facility] Estimated glomerular filtrat ion rate (GFR) non- Americanon 12-06-2023 GFR/1.73 sq M.predicted among non-blacks MDRD (S/P/Bld) [Vol rate/Area] mL/min/{1.73_m2} >=60 [facility] Globulin Calc (S) [Mass/Vol] on 12-06-2023 Globulin (S) [Mass/Vol] 3.0 g/dL [facility] Hematocrit Auto (Bld) [Volum e fraction]on 12-06-2023 Hematocrit (Bld) [Volume fraction] 41.8 % 36.0-48.0 [facility] Hemoglobin [Mass/volume] in Bloodon 12-06-2023 Hemoglobin (Bld) [Mass/Vol] 13.3 g/dL 12.0-16.0 [facility] Laboratory - Chemistry and C hemistry - challengeon 12-06-2023 Albumin [Mass/Vol] 3.8 g/dL 3.4-5.0 [facility] ALP [Catalytic activity/Vol] 110 U/L 46-116 [facility] ALT [Catalytic activity/Vol] 40 U/L 14-59 [facility] AST [Catalytic activity/Vol] 32 U/L 15-37 [facility] Bilirubin [Mass/Vol] 0.4 mg/dL 0.2-1.0 [facility] Calcium [Mass/Vol] 8.8 mg/dL 8.5-10.1 [facility] Chloride [Moles/Vol] 105 mmol/L 98-107 [facility] Cholesterol [Mass/Vol] 189 mg/dL <=200 [facility] Cholesterol in HDL [Mass/Vol] 63 mg/dL High 40-60 [facility] Comment on above: > or =60 mg/dl - LOW CARDIOVASCULAR RISK<40 mg/dl - HIGH CARDIOVASCULAR RISK CO2 [Moles/Vol] 32.2 mmol/L High 21.0-32.[address] [facility] Creatinine [Mass/Vol] 0.66 mg/dL 0.55-1.02 [facility] GFR/1.73 sq M.predicted MDRD (S/P/Bld) [Vol rate/Area] mL/min/{1.73_m2} >=60 [facility] Glucose [Mass/Vol] 91 mg/dL 74-106 [facility] Potassium [Moles/Vol] 4.1 mmol/L 3.5-5.1 [facility] Protein [Mass/Vol] 6.8 g/dL 6.4-8.2 [facility] Sodium [Moles/Vol] 143 mmol/L 136-145 [facility] Triglyceride [Mass/Vol] 105 mg/dL <=150 [facility] TSH Qn 2.954 m[IU]/L 0.358-3.74 0 [facility] Urea nitrogen [Mass/Vol] 11.0 mg/dL 7.0-18.0 [facility] Urea nitrogen/Creatinine [Mass ratio] 16.7 mg/mg [facility] Laboratory - Hematology and Cell countson 12-06-2023 Immature granulocytes/100 WBC (Bld) 0.3 % 0.0-0.5 [facility] Leukocytes [#/volume] correc main for nucleated erythrocytes in Blood by Automated counon 12-06-2023 WBC corrected for nucl RBC Auto (Bld) [#/Vol] 6.8 10 3/uL 4.0-11.0 [facility] Lymphocytes Auto (Bld) [#/Vo l]on 12-06-2023 Lymphocytes (Bld) [#/Vol] 1.8 10 3/uL 1.2-3.8 [facility] Lymphocytes/100 WBC Auto (Bl d)on 12-06-2023 Lymphocytes/100 WBC (Bld) 26.8 % 20.5-60.0 [facility] MCH Auto (RBC) [Entitic mass ]on 12-06-2023 MCH (RBC) [Entitic mass] 29.2 pg 26.7-34.0 [facility] MCHC Auto (RBC) [Mass/Vol]on 12-06-2023 MCHC (RBC) [Mass/Vol] 31.8 g/dL 29.9-35.2 [facility] MCV Auto (RBC) [Entitic vol] on 12-06-2023 MCV (RBC) [Entitic vol] 91.7 fL 81.0-99.0 [facility] Monocytes Auto (Bld) [#/Vol] on 12-06-2023 Monocytes (Bld) [#/Vol] 0.5 10 3/uL 0.3-0.8 [facility] Monocytes/100 WBC Auto (Bld) on 12-06-2023 Monocytes/100 WBC (Bld) 7.9 % 1.7-12.0 [facility] Neutrophils Auto (Bld) [#/Vo l]on 12-06-2023 Neutrophils (Bld) [#/Vol] 4.1 10 3/uL 1.4-6.5 [facility] Neutrophils/100 WBC Auto (Bl d)on 12-06-2023 Neutrophils/100 WBC (Bld) 60.3 % 43.0-75.0 [facility] No Panel Informationon 12-05 Eosinophils # (Auto) 0.3 10 3/uL 0.0-0.7 [facility] Immature Granulocyte # (Auto) 0.02 10 3/uL 0.00-0.03 [facility] Platelet mean volume Auto (B ld) [Entitic vol]on 12-06-2023 Platelet mean volume (Bld) [Entitic vol] 8.7 fL Low 9.5-13.5 [facility] Platelets Auto (Bld) [#/Vol] on 12-06-2023 Platelets (Bld) [#/Vol] 291 10 3/uL 150-450 [facility] RBC Auto (Bld) [#/Vol]on RBC (Bld) [#/Vol] 4.56 10 6/uL 4.20-5.40 [facility] Serum or plasma albumin/glob ulin mass ratioon 12-06-2023 Albumin/Globulin [Mass ratio] 1.3 {ratio} [facility] Serum or plasma anion gap de terminationon 12-06-2023 Anion gap [Moles/Vol] 9.9 mmol/L [facility] Serum or plasma total choles terol/high density lipoprotein (HDL) cholesterol mass amador 12-06-2023 Cholesterol.total/Ch olesterol in HDL [Mass ratio] 3.0 {ratio} [facility] Comment on above: 3.3 - 4.4 LOW RISK4. 4 - 7.1 AVERAGE RISK7.1 - 11.0 MODERATE RISK>11.0 HIGH RISK A1C with Estimated Average G luon 11-19-2023 Glucose [Mass/Vol] 123 mg/dL Normal [facility] Comment on above: Result Comment: PERF ORMED BY: [place] [address] PATHOLOGIST COMMUNICATIONS ADMINISTRATOR KOMAL COFFMAN M.D. Performed By: #### H GB, ALB, [id number], A1C WTH eA, CUMRSA #### [address] #### NICOTINE #### [facility] , Albumin Levelon 11-19-2023 Albumin [Mass/Vol] 4.6 g/dL Normal 3.5-5.7 [facility] Comment on above: Performed By: #### H GB, ALB, [id number], A1C WTH eA, CUMRSA #### [facility] [address] [place] [address] [place] #### NICOTINE #### [facility] , Albumin [Mass/volume] in Ser um or Plasma by Bromocresol green (BCG) dye binding methoOrdered By: Finn Ortez on 11-19-2023 Albumin BCG dye [Mass/Vol] 4.6 g/dL 3.5-5.7 [facility] Cotinine [Mass/volume] in Se rum or PlasmaOrdered By: Finn Ortez on 11-19-2023 Cotinine [Mass/Vol] <1.0 ng/mL . [facility] Comment on above: This test was develo ped and its performance characteristicsdetermined by [employer]. It has not been cleared orapproved by the Food and Drug Administration.Cotinine levels greater than 20.0 are consistent with theuse of tobacco or tobacco cessation products.Performed at: [address] [id number] Director: Vinh Almeida MD, Phone: [phone] Glucose mean value [Mass/vol ume] in Blood Estimated from glycated hemoglobinOrdered By: Finn Ortez on 11-19-2023 Average glucose Estimated from glycated hemoglobin (Bld) [Mass/Vol] 123 mg/dL [facility] Hemoglobin A1c percentageOrd ered By: Finn Ortez on 11-19-2023 HbA1c (Bld) [Mass fraction] 5.9 % High 4.3-5.6 [facility] Comment on above: Increased risk for d iabetes: 5.7 - 6.4diabetes: >6.4glycemic control for adults with diabetes: <7.0 Result Comment: Incr eased risk for diabetes: 5.7 - 6.4 diabetes: >6.4 glycemic control for adults with diabetes: <7.0 Performed By: #### H GB, ALB, [id number], A1C WTH SEBASTIAN Bacon #### [facility] [address] [place] [id number] [place] #### NICOTINE #### [facility] , Hemoglobin [Mass/volume] in BloodOrdered By: Finn Ortez on 11-19-2023 Hemoglobin (Bld) [Mass/Vol] 13.6 g/dL Normal 11.8-15.4 [facility] Comment on above: Result Comment: PERF ORMED BY: [place] [address] PATHOLOGIST COMMUNICATIONS ADMINISTRATOR KOMAL COFFMAN M.D. Performed By: #### H GB, ALB, [id number], A1C WTH eA, CUMRSA #### [address] #### NICOTINE #### [facility] , MRSA Cultureon 11-19-2023 MRSA Culture MRSA Culture Results No MRSA Isolated 2 Days PERFORMED BY: [place] [address] PATHOLOGIST COMMUNICATIONS ADMINISTRATOR KOMAL COFFMAN M.D. Normal [facility] Comment on above: Performed By: #### H GB, ALB, [id number], A1C WTH eA, CUMRSA #### [place] [address] [place] #### NICOTINE #### [facility] , Nicotine [Mass/volume] in Se rum or PlasmaOrdered By: Finn Ortez on 11-19-2023 Nicotine [Mass/Vol] <1.0 ng/mL . [facility] Comment on above: This test was develo ped and its performance characteristicsdetermined by [facility]. It has not been cleared orapproved by the Food and Drug Administration.Nicotine levels greater than 2.0 are consistent with theuse of tobacco or tobacco cessation products. Nicotine/Cotinine Bloodon Cotinine, Blood <1.0 Normal . [facility] Comment on above: Result Comment: This test was developed and its performance characteristics determined by [facility]. It has not been cleared or approved by the Food and Drug Administration. Cotinine levels greater than 20.0 are consistent with the use of tobacco or tobacco cessation products. Performed at: [address] [id number] Director Community Organization: Vinh Almeida MD, Phone: [phone] PERFORMED BY: [place] [id number] PATHOLOGIST COMMUNICATIONS ADMINISTRATOR KOMAL COFFMAN M.D. Performed By: #### H GB, ALB, [id number], A1C WTH eA, CUMRSA #### [place] [address] [place] #### NICOTINE #### [facility] , Nicotine, Blood <1.0 Normal . [facility] Comment on above: Result Comment: This test was developed and its performance characteristics determined by [facility]. It has not been cleared or approved by the Food and Drug Administration. Nicotine levels greater than 2.0 are consistent with the use of tobacco or tobacco cessation products. Performed By: #### H GB, ALB, [id number], A1C WTH eA, CUMRSA #### [place] [address] [place] #### NICOTINE #### [facility] , Vitamin D 25 Hydroxy Totalon 11-19-2023 Vitamin D 25 Hydroxy Total 51.6 ng/mL Normal 30-100 [facility] Comment on above: Result Comment: EDIE MIN D STATUS 25(OH)VITAMIN D RANGE (ng/mL) Deficient <20 Insufficient 20 to <30 Sufficient 30 to 100 Reference: Giovanny MF,Radha NC, Gisela RAMAN, et al. Evaluation,treatment, and prevention of vitamin D deficiency; an Endocrine Society clinical practice guideline. JCEM. 2010; 96(7):1911-30. PERFORMED BY: [place] [address] PATHOLOGIST COMMUNICATIONS ADMINISTRATOR KOMAL COFFMAN M.D. Performed By: #### H GB, ALB, [id number], A1C WTH eA, CUMRSA #### [place] [address] [place] #### NICOTINE #### [facility] , Vitamin D+Metabolites [Mass/ volume] in Serum or PlasmaOrdered By: Finn Ortez on 11-19-2023 Vitamin D+Metabolites [Mass/Vol] 51.6 ng/mL 30-100 [facility] Comment on above: VITAMIN D STATUS 25( OH)VITAMIN D RANGE (ng/mL) Deficient <20 Insufficient 20 to <30Sufficient 30 to 100Reference: Giovanny MF,Radha NC, Gisela RAMAN, et al. Evaluation,treatment, and prevention of vitamin D deficiency; an Endocrine Society clinical practice guideline. JCEM. 2010; 96(7):1911-30. Wound methicillin resistant Staphylococcus aureus (MRSA) cultureOrdered By: Finn Ortez on 11-19-2023 MRSA isol Org specific cx Ql (Unsp spec) [facility] Bilirubin Test strip Ql (U)O rdered By: Karen Cardoso on 09-15-2023 Bilirubin Ql (U) Negative Negative [facility] Color Auto (U)Ordered By: José Cardoso on 09-15-2023 Color (U) Yellow Yellow [facility] Ketones Auto test strip (U) [Mass/Vol]Ordered By: Karen Cardoso on 09-15-2023 Ketones (U) [Mass/Vol] Trace High Negative [facility] Nitrite Test strip Ql (U)Ord ered By: Karen Cardoso on 09-15-2023 Nitrite Ql (U) Negative Negative [facility] Protein Auto test strip (U) [Mass/Vol]Ordered By: Karen Cardoso on 09-15-2023 Protein (U) [Mass/Vol] Negative Negative [facility] Specific gravity Auto test s trip (U) [Rel density]Ordered By: Karen Cardoso on 09-15-2023 Specific gravity (U) [Rel density] 1.007 1.001-1.03 0 [facility] Urine clarity by refractomet ry automatedOrdered By: Karen Cardoso on 09-15-2023 Clarity Refractometry automated (U) Clear Clear [facility] Urine culture routineOrdered By: Karen Cardoso on 09-15-2023 Bacteria identified Cx Nom (U) 2 Days [facility] Urine glucose measurement by automated test strip (mass/volume)Ordered By: Karen Cardoso on 09-15-2023 Glucose Auto test strip (U) [Mass/Vol] Normal mg/dL Normal [facility] Urine hemoglobin detection b y automated test stripOrdered By: Karen Cardoso on 09-15-2023 Hemoglobin Auto test strip Ql (U) 2+ High Negative [facility] Urine leukocyte esterase det ection by automated test stripOrdered By: Karen Cardoso on 09-15-2023 Leukocyte esterase Auto test strip Ql (U) Negative Negative [facility] Urobilinogen Auto test strip (U) [Mass/Vol]Ordered By: Karen Cardoso on 09-15-2023 Urobilinogen (U) [Mass/Vol] Normal mg/dL Normal [facility] pH Auto test strip (U)Ordere d By: Karen Cardoso on 09-15-2023 pH (U) 5.5 [pH] 5.0-9.0 [facility] Basophils Auto (Bld) [#/Vol] on 06-23-2023 Basophils (Bld) [#/Vol] 0.0 10 3/uL 0.0-0.1 [facility] Basophils/100 WBC Auto (Bld) on 06-23-2023 Basophils/100 WBC (Bld) 0.4 % 0.2-2.0 [facility] Cholesterol in LDL Calc [Mas s/Vol]on 06-23-2023 Cholesterol in LDL [Mass/Vol] 104.0 mg/dL [facility] Comment on above: <100 mg/dl [id number] 0-129 mg/dl NEAR OR ABOVE [id number] mg/dl BORDERLINE [id number] mg/dl HIGH>190 mg/dl VERY HIGH Cholesterol in VLDL Calc [Ma ss/Vol]on 06-23-2023 Cholesterol in VLDL [Mass/Vol] 19.8 mg/dL [facility] Eosinophils/100 WBC Auto (Bl d)on 06-23-2023 Eosinophils/100 WBC (Bld) 1.8 % 0.9-7.0 [facility] Erythrocyte distribution wid th Auto (RBC) [Ratio]on 06-23-2023 Erythrocyte distribution width (RBC) [Ratio] 14.1 % 11.0-15.0 [facility] Estimated glomerular filtrat ion rate (GFR) non- Americanon 06-23-2023 GFR/1.73 sq M.predicted among non-blacks MDRD (S/P/Bld) [Vol rate/Area] mL/min/{1.73_m2} >=60 [facility] Globulin Calc (S) [Mass/Vol] on 06-23-2023 Globulin (S) [Mass/Vol] 3.6 g/dL [facility] Glucose mean value [Mass/vol ume] in Blood Estimated from glycated hemoglobinon 06-23-2023 Average glucose Estimated from glycated hemoglobin (Bld) [Mass/Vol] 114 mg/dL [facility] Hematocrit Auto (Bld) [Volum e fraction]on 06-23-2023 Hematocrit (Bld) [Volume fraction] 44.3 % 36.0-48.0 [facility] Hemoglobin [Mass/volume] in Bloodon 06-23-2023 Hemoglobin (Bld) [Mass/Vol] 14.0 g/dL 12.0-16.0 [facility] Laboratory - Chemistry and C hemistry - challengeon 06-23-2023 Albumin [Mass/Vol] 3.7 g/dL 3.4-5.0 [facility] ALP [Catalytic activity/Vol] 88 U/L 46-116 [facility] ALT [Catalytic activity/Vol] 29 U/L 14-59 [facility] AST [Catalytic activity/Vol] 18 U/L 15-37 [facility] Bilirubin [Mass/Vol] 0.6 mg/dL 0.2-1.0 [facility] Calcium [Mass/Vol] 9.1 mg/dL 8.5-10.1 [facility] Chloride [Moles/Vol] 104 mmol/L 98-107 [facility] Cholesterol [Mass/Vol] 196 mg/dL <=200 [facility] Cholesterol in HDL [Mass/Vol] 73 mg/dL 40-60 [facility] Comment on above: > or =60 mg/dl - LOW CARDIOVASCULAR RISK<40 mg/dl - HIGH CARDIOVASCULAR RISK CO2 [Moles/Vol] 30.4 mmol/L 21.0-32.[address] [facility] Creatinine [Mass/Vol] 0.67 mg/dL 0.55-1.02 [facility] GFR/1.73 sq M.predicted MDRD (S/P/Bld) [Vol rate/Area] mL/min/{1.73_m2} >=60 [facility] Glucose [Mass/Vol] 97 mg/dL 74-106 [facility] Potassium [Moles/Vol] 3.8 mmol/L 3.5-5.1 [facility] Protein [Mass/Vol] 7.3 g/dL 6.4-8.2 [facility] Sodium [Moles/Vol] 145 mmol/L 136-145 [facility] Triglyceride [Mass/Vol] 99 mg/dL <=150 [facility] Urea nitrogen [Mass/Vol] 13.0 mg/dL 7.0-18.0 [facility] Urea nitrogen/Creatinine [Mass ratio] 19.4 mg/mg [facility] Laboratory - Hematology and Cell countson 06-23-2023 HbA1c (Bld) [Mass fraction] 5.6 % 4.5-6.2 [facility] Comment on above: ADA RECOMMENDED LIMI T 4.0 - 6.0ADA THERAPEUTIC TARGET < 7.0ACTION SUGGESTED> 7.0 Immature granulocytes/100 WBC (Bld) 0.8 % 0.0-0.5 [facility] Leukocytes [#/volume] correc main for nucleated erythrocytes in Blood by Automated counon 06-23-2023 WBC corrected for nucl RBC Auto (Bld) [#/Vol] 9.6 10 3/uL 4.0-11.0 [facility] Lymphocytes Auto (Bld) [#/Vo l]on 06-23-2023 Lymphocytes (Bld) [#/Vol] 1.8 10 3/uL 1.2-3.8 [facility] Lymphocytes/100 WBC Auto (Bl d)on 06-23-2023 Lymphocytes/100 WBC (Bld) 18.7 % 20.5-60.0 [facility] MCH Auto (RBC) [Entitic mass ]on 06-23-2023 MCH (RBC) [Entitic mass] 28.4 pg 26.7-34.0 [facility] MCHC Auto (RBC) [Mass/Vol]on 06-23-2023 MCHC (RBC) [Mass/Vol] 31.6 g/dL 29.9-35.2 [facility] MCV Auto (RBC) [Entitic vol] on 06-23-2023 MCV (RBC) [Entitic vol] 89.9 fL 81.0-99.0 [facility] Monocytes Auto (Bld) [#/Vol] on 06-23-2023 Monocytes (Bld) [#/Vol] 0.8 10 3/uL 0.3-0.8 [facility] Monocytes/100 WBC Auto (Bld) on 06-23-2023 Monocytes/100 WBC (Bld) 7.9 % 1.7-12.0 [facility] Neutrophils Auto (Bld) [#/Vo l]on 06-23-2023 Neutrophils (Bld) [#/Vol] 6.8 10 3/uL 1.4-6.5 [facility] Neutrophils/100 WBC Auto (Bl d)on 06-23-2023 Neutrophils/100 WBC (Bld) 70.4 % 43.0-75.0 [facility] No Panel Informationon 06-23 Eosinophils # (Auto) 0.2 10 3/uL 0.0-0.7 [facility] Immature Granulocyte # (Auto) 0.08 10 3/uL 0.00-0.03 [facility] Platelet mean volume Auto (B ld) [Entitic vol]on 06-23-2023 Platelet mean volume (Bld) [Entitic vol] 8.6 fL 9.5-13.5 [facility] Platelets Auto (Bld) [#/Vol] on 06-23-2023 Platelets (Bld) [#/Vol] 362 10 3/uL 150-450 [facility] RBC Auto (Bld) [#/Vol]on RBC (Bld) [#/Vol] 4.93 10 6/uL 4.20-5.40 [facility] Serum or plasma albumin/glob ulin mass ratioon 06-23-2023 Albumin/Globulin [Mass ratio] 1.0 {ratio} [facility] Serum or plasma anion gap de terminationon 06-23-2023 Anion gap [Moles/Vol] 14.4 mmol/L [facility] Serum or plasma total choles terol/high density lipoprotein (HDL) cholesterol mass amador 06-23-2023 Cholesterol.total/Ch olesterol in HDL [Mass ratio] 2.7 {ratio} [facility] Comment on above: 3.3 - 4.4 LOW RISK4. 4 - 7.1 AVERAGE RISK7.1 - 11.0 MODERATE RISK>11.[address] CSPINE WO CONon 3 CT CSPINE [...] DONYA BIGGS Date: 2022-08-27 17:05 Normal [facility] CT HEAD WO CONon 08-27-2022 [...] ALMA FRIEDMAN Date: 2022-08-27 17:02 Normal [facility] XR HIP LT 2 3V W PELVISon [...] KAREN CANO Date: 2022-08-27 17:40 Normal [facility] XR hip RT min 2V(w/wo pelvis )*on 07-12-2022 XR hip RT min 2V(w/wo pelvis)* [facility] [employer] Other XR hip RT min 2V(w/wo pelvis)* [facility] [employer] Other XR hip RT min 2V(w/wo pelvis)* [address] [place] [address] [employer] Other XR hip RT min 2V(w/wo pelvis)* [place] [address] [employer] Other XR hip RT min 2V(w/wo pelvis)* XRay Report [employer] Other XR hip RT min 2V(w/wo pelvis)* Signed [employer] Other XR hip RT min 2V(w/wo pelvis)* Patient: Antonino Torres MR#: [id number] [employer] Other XR hip RT min 2V(w/wo pelvis)* [address] [employer] Other XR hip RT min 2V(w/wo pelvis)* : 1955 Acct:[id number] [employer] Other XR hip RT min 2V(w/wo pelvis)* Age/Sex: 66 / F ADM Date: 07/12/22 [employer] Other XR hip RT min 2V(w/wo pelvis)* Loc: [facility] Room: Type: [facility] [employer] Other XR hip RT min 2V(w/wo pelvis)* Attending Dr: Finn Ortez II, MD [employer] Other XR hip RT min 2V(w/wo pelvis)* Copies to: Finn Ortez MD [employer] Other XR hip RT min 2V(w/wo pelvis)* Ordering Provider: Finn Ortez MD [employer] Other XR hip RT min 2V(w/wo pelvis)* Date of Service: 07/12/22 [employer] Other XR hip RT min 2V(w/wo pelvis)* XR/XR hip RT min 2V(w/wo pelvis)*: Right hip pain [employer] Other XR hip RT min 2V(w/wo pelvis)* XR hip RT min 2V(w/wo pelvis)* 07/12/2022 10:08 AM [employer] Other XR hip RT min 2V(w/wo pelvis)* SIGNS AND SYMPTOMS: Right hip pain, right inguinal pain [employer] Other XR hip RT min 2V(w/wo pelvis)* PROTOCOL: Frontal radiograph the pelvis with crosstable lateral view of the right hip [employer] Other XR hip RT min 2V(w/wo pelvis)* COMPARISON: None [employer] Other XR hip RT min 2V(w/wo pelvis)* FINDINGS: [employer] Other XR hip RT min 2V(w/wo pelvis)* 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 There is no hardware complication or malalignment. [employer] Other XR hip RT min 2V(w/wo pelvis)* The bony ring of the pelvis is grossly intact. Degenerative changes are noted in the lumbar spine [employer] Other XR hip RT min 2V(w/wo pelvis)* and sacroiliac joints. There is enthesophyte formation at the greater trochanters and iliac wings. [employer] Other XR hip RT min 2V(w/wo pelvis)* There is mild narrowing of the right hip joint space. [employer] Other XR hip RT min 2V(w/wo pelvis)* XR/XR hip RT min 2V(w/wo pelvis)* [employer] Other XR hip RT min 2V(w/wo pelvis)* IMPRESSION: [employer] Other XR hip RT min 2V(w/wo pelvis)* No fracture or dislocation. [employer] Other XR hip RT min 2V(w/wo pelvis)* Multifocal degenerative change is noted, as above. [employer] Other XR hip RT min 2V(w/wo pelvis)* Impression dictated by: Justen Jenkins M.D.07/12/2022 1:35 PM [employer] Other XR hip RT min 2V(w/wo pelvis)* Dictation Location: [place] [address] [employer] Other XR hip RT min 2V(w/wo pelvis)* Transcribed By: SAGAR 07/12/22 [facility] [employer] Other XR hip RT min 2V(w/wo pelvis)* Dictated By: Justen Jenkins II, MD 07/12/22 [facility] [employer] Other XR hip RT min 2V(w/wo pelvis)* Signed By: [employer] Other XR hip RT min 2V(w/wo pelvis)* 07/12/22 [facility] [employer] Other CBC AUTO DIFFon 03-12-2022 BASO # 0.1 103/ul Normal 0.0-0.1 [facility] Comment on above: Performed By: #### D ATCBC #### [facility] [address] [place] [address] Dr. David Phillips Basophils/100 WBC (Bld) 1.0 % Normal 0.2-2.0 [facility] Comment on above: Performed By: #### D ATCBC #### [facility] [address] [place] [address] Dr. David Phillips EO # 0.2 103/ul Normal 0.0-0.7 [facility] Comment on above: Performed By: #### D ATCBC #### [facility] [address] [place] [address] Dr. David Phillips Eosinophils/100 WBC (Bld) 3.7 % Normal 0.9-7.0 [facility] Comment on above: Performed By: #### D ATCBC #### [facility] [address] [place] [address] Dr. David Phillips Erythrocyte distribution width (RBC) [Ratio] 13.1 % Normal 11.0-15.0 [facility] Comment on above: Performed By: #### D ATCBC #### [facility] [address] [place] [address] Dr. David Phillips Hematocrit (Bld) [Volume fraction] 41.6 % Normal 36.0-48.0 [facility] Comment on above: Performed By: #### D ATCBC #### [facility] [address] [place] [address] Dr. David Phillips Hemoglobin (Bld) [Mass/Vol] 13.6 g/dL Normal 12.0-16.0 [facility] Comment on above: Performed By: #### D ATCBC #### [facility] [address] [place] [address] Dr. David Phillips IG # 0.01 10e3/ul Normal 0.00-0.03 [facility] Comment on above: Performed By: #### D ATCBC #### [facility] [address] [place] [address] Dr. David Phillips IG % 0.2 % Normal 0.0-0.5 [facility] Comment on above: Performed By: #### D ATCBC #### [facility] [address] [place] [address] Dr. David Phillips LYMPH # 1.7 103/ul Normal 1.2-3.8 [facility] Comment on above: Performed By: #### D ATCBC #### [facility] [address] [place] [address] Dr. David Phillips Lymphocytes/100 WBC (Bld) 29.0 % Normal 20.5-60.0 [facility] Comment on above: Performed By: #### D ATCBC #### [facility] [address] [place] [address] Dr. David Phillips MCH (RBC) [Entitic mass] 28.9 pg Normal 26.7-34.0 [facility] Comment on above: Performed By: #### D ATCBC #### [facility] [address] [place] [address] Dr. David Phillips MCHC (RBC) [Mass/Vol] 32.7 g/dL Normal 29.9-35.2 [facility] Comment on above: Performed By: #### D ATCBC #### [facility] [address] [place] [address] Dr. David Phillips MCV (RBC) [Entitic vol] 88.3 fL Normal 81.0-99.0 [facility] Comment on above: Performed By: #### D ATCBC #### [facility] [address] [place] [address] Dr. David Phillips MONO # 0.5 103/ul Normal 0.3-0.8 [facility] Comment on above: Performed By: #### D ATCBC #### [facility] [address] [place] [address] Dr. David Phillips Monocytes/100 WBC (Bld) 7.7 % Normal 1.7-12.0 [facility] Comment on above: Performed By: #### D ATCBC #### [facility] [address] [place] [address] Dr. David Phillips NEUT # 3.4 103/ul Normal 1.4-6.5 [facility] Comment on above: Performed By: #### D ATCBC #### [facility] [address] [address] [address] David Phillips Neutrophils/100 WBC (Bld) 58.4 % Normal 43.0-75.0 [facility] Comment on above: Performed By: #### D ATCBC #### [facility] [address] [address] [address] David hPillips Platelet mean volume (Bld) [Entitic vol] 9.0 fL Critically low 9.5-13.5 [facility] Comment on above: Performed By: #### D ATCBC #### [facility] [address] [place] [address] Dr. David Phillips PLT 273 103/ul Normal 150-450 [facility] Comment on above: Performed By: #### D ATCBC #### [facility] [address] [place] [address] Dr. Dvaid Phillips RBC 4.71 106/ul Normal 4.20-5.40 [facility] Comment on above: Performed By: #### D ATCBC #### [facility] [address] [place] [address] Dr. David Phillips WBC 5.9 103/ul Normal 4.0-11.0 [facility] Comment on above: Performed By: #### D ATCBC #### [facility] [address] [place] [address] Dr. David Phillips BRIANNA- BMP WITH LIPIDon 2021 Anion gap [Moles/Vol] 6.8 mmol/L Normal [facility] Comment on above: Performed By: #### D ATCBC #### [facility] [address] [place] [address] Dr. David Phillips Calcium [Mass/Vol] 8.6 mg/dL Normal 8.5-10.1 [facility] Comment on above: Performed By: #### D ATCBC #### [facility] [address] [place] [address] Dr. David Phillips Chloride [Moles/Vol] 105 mmol/L Normal 98-107 [facility] Comment on above: Performed By: #### D ATCBC #### [facility] [address] [address] [address] David Phillips Cholesterol [Mass/Vol] 175 mg/dL Normal <=200 [facility] Comment on above: Performed By: #### D ATCBC #### [facility] [address] [address] [address] David Phillips Cholesterol in HDL [Mass/Vol] 68 mg/dL Critically high 40-60 [facility] Comment on above: Performed By: #### D ATCBC #### [facility] [address] [address] [address] David Phillips Cholesterol in LDL [Mass/Vol] 96.8 mg/dL Normal [facility] Comment on above: Performed By: #### D ATCBC #### [facility] [address] [address] [address] David Phillips CO2 [Moles/Vol] 32.2 mmol/L Critically high 21.0-32.0 [facility] Comment on above: Performed By: #### D ATCBC #### [facility] [address] [address] [address] David Phillips Creatinine [Mass/Vol] 0.63 mg/dL Normal 0.55-1.02 [facility] Comment on above: Performed By: #### D ATCBC #### [facility] [address] [address] [address] David Phillips EGFR-AF CZECH >60 Normal >=60 [facility] Comment on above: Performed By: #### D ATCBC #### [facility] [address] [address] [address] David Phillips EGFR-NON AF CZECH >60 Normal >=60 [facility] Comment on above: Performed By: #### D ATCBC #### [facility] [address] [address] [address] David Phillips Glucose [Mass/Vol] 97 mg/dL Normal 74-106 [facility] Comment on above: Performed By: #### D ATCBC #### [facility] [address] [address] [address] David Phillips HDL NORMAL > or = 60 mg/dl - LO W CARDIOVASCULAR RISK <40 mg/dl - HIGH CARDIOVASCULAR RISK Normal [facility] Comment on above: Performed By: #### D ATCBC #### [facility] [address] [address] [address] David Phillips LDL CALC NORMAL SEE BELOW Normal [facility] Comment on above: Result Comment: <100 mg/dl OPTIMAL 100 - 129 mg/dl NEAR OR ABOVE OPTIMAL 130 - 159 mg/dl BORDERLINE HIGH 160 - 189 mg/dl HIGH >190 mg/dl VERY HIGH Performed By: #### D ATCBC #### [facility] [address] [address] [address] David Phillips Potassium [Moles/Vol] 4.0 mmol/L Normal 3.5-5.1 [facility] Comment on above: Performed By: #### D ATCBC #### [facility] [address] [address] [address] David Phillips Sodium [Moles/Vol] 140 mmol/L Normal 136-145 [facility] Comment on above: Performed By: #### D ATCBC #### [facility] [address] [address] [address] David Phillips Triglyceride [Mass/Vol] 51 mg/dL Normal <=150 [facility] Comment on above: Performed By: #### D ATCBC #### [facility] [address] [address] [address] David Phillips Urea nitrogen [Mass/Vol] 17.0 mg/dL Normal 7.0-18.0 [facility] Comment on above: Performed By: #### D ATCBC #### [facility] [address] [address] [address] David Phillips Urea nitrogen/Creatinine [Mass ratio] 27.0 mg/mg Normal [facility] Comment on above: Performed By: #### D ATCBC #### [facility] [address] [address] [address] David Phillips VLDL CALC 10.2 mg/dL Normal [facility] Comment on above: Performed By: #### D ATCBC #### [facility] [address] [place] [address] Dr. David Phillips CBC AUTO DIFFon 02-07-2022 BASO # 0.1 103/ul Normal 0.0-0.1 [facility] [facility] Comment on above: Performed By: #### D ATCBC #### [facility] [address] [place] [address] Dr. David Phillips Basophils/100 WBC (Bld) 0.5 % Normal 0.2-2.0 [facility] Comment on above: Performed By: #### D ATCBC #### [facility] [address] [place] [address] Dr. David Phillips EO # 0.2 103/ul Normal 0.0-0.7 [facility] Comment on above: Performed By: #### D ATCBC #### [facility] [address] [place] [address] Dr. David Phillips Eosinophils/100 WBC (Bld) 1.4 % Normal 0.9-7.0 [facility] Comment on above: Performed By: #### D ATCBC #### [facility] [address] [place] [address] Dr. David Phillips Erythrocyte distribution width (RBC) [Ratio] 13.2 % Normal 11.0-15.0 [facility] Comment on above: Performed By: #### D ATCBC #### [facility] [address] [place] [address] Dr. David Phillips Hematocrit (Bld) [Volume fraction] 42.7 % Normal 36.0-48.0 [facility] Comment on above: Performed By: #### D ATCBC #### [facility] [address] [place] [address] Dr. David Phillips Hemoglobin (Bld) [Mass/Vol] 13.7 g/dL Normal 12.0-16.0 [facility] Comment on above: Performed By: #### D ATCBC #### [facility] [address] [address] [address] David Phillips IG # 0.04 10e3/ul Critically high 0.00-0.03 [facility] Comment on above: Performed By: #### D ATCBC #### [facility] [address] [address] [address] David Phillips IG % 0.4 % Normal 0.0-0.5 [facility] Comment on above: Performed By: #### D ATCBC #### [facility] [address] [address] [address] David Phillips LYMPH # 1.5 103/ul Normal 1.2-3.8 [facility] Comment on above: Performed By: #### D ATCBC #### [facility] [address] [place] [address] Dr. David Phillips Lymphocytes/100 WBC (Bld) 12.9 % Critically low 20.5-60.0 [facility] Comment on above: Performed By: #### D ATCBC #### [facility] [address] [place] [address] Dr. David Phillips MCH (RBC) [Entitic mass] 29.0 pg Normal 26.7-34.0 [facility] Comment on above: Performed By: #### D ATCBC #### [facility] [address] [place] [address] Dr. David Phillips MCHC (RBC) [Mass/Vol] 32.1 g/dL Normal 29.9-35.2 [facility] Comment on above: Performed By: #### D ATCBC #### [facility] [address] [place] [address] Dr. David Phillips MCV (RBC) [Entitic vol] 90.5 fL Normal 81.0-99.0 [facility] Comment on above: Performed By: #### D ATCBC #### [facility] [address] [place] [address] Dr. David Phillips MONO # 0.9 103/ul Critically high 0.3-0.8 [facility] Comment on above: Performed By: #### D ATCBC #### [facility] [address] [address] [address] David Phillips Monocytes/100 WBC (Bld) 7.5 % Normal 1.7-12.0 [facility] Comment on above: Performed By: #### D ATCBC #### [facility] [address] [address] [address] David Phillips NEUT # 8.8 103/ul Critically high 1.4-6.5 [facility] Comment on above: Performed By: #### D ATCBC #### [facility] [address] [place] [address] Dr. David Phillips Neutrophils/100 WBC (Bld) 77.3 % Critically high 43.0-75.0 [facility] Comment on above: Performed By: #### D ATCBC #### [facility] [address] [place] [address] Dr. David Phillips Platelet mean volume (Bld) [Entitic vol] 8.9 fL Critically low 9.5-13.5 [facility] Comment on above: Performed By: #### D ATCBC #### [facility] [address] [place] [address] Dr. David Phillips PLT 283 103/ul Normal 150-450 [facility] Comment on above: Performed By: #### D ATCBC #### [facility] [address] [place] [address] Dr. David Phillips RBC 4.72 106/ul Normal 4.20-5.40 [facility] Comment on above: Performed By: #### D ATCBC #### [facility] [address] [place] [address] Dr. David Phillips WBC 11.4 103/ul Critically high 4.0-11.0 [facility] Comment on above: Performed By: #### D ATCBC #### [facility] [address] [place] [address] Dr. David Phillips BRIANNA- BMP WITH LIPIDon 2021 Anion gap [Moles/Vol] 9.1 mmol/L Normal [facility] Comment on above: Performed By: #### D ATBMP #### [facility] [address] [address] [address] David Phillips Calcium [Mass/Vol] 9.0 mg/dL Normal 8.5-10.1 [facility] Comment on above: Performed By: #### D ATBMP #### [facility] [address] [address] [address] David Phillips Chloride [Moles/Vol] 103 mmol/L Normal 98-107 [facility] Comment on above: Performed By: #### D ATBMP #### [facility] [address] [address] [address] David Phillips Cholesterol [Mass/Vol] 183 mg/dL Normal <=200 [facility] Comment on above: Performed By: #### D ATBMP #### [facility] [address] [address] [address] David Phillips Cholesterol in HDL [Mass/Vol] 75 mg/dL Critically high 40-60 [facility] Comment on above: Performed By: #### D ATBMP #### [facility] [address] [address] [address] David Phillips Cholesterol in LDL [Mass/Vol] 95.2 mg/dL Normal [facility] Comment on above: Performed By: #### D ATBMP #### [facility] [address] [address] [address] David Phillips CO2 [Moles/Vol] 31.1 mmol/L Normal 21.0-32.0 [facility] Comment on above: Performed By: #### D ATBMP #### [facility] [address] [address] [address] David Phillips Creatinine [Mass/Vol] 0.71 mg/dL Normal 0.55-1.02 [facility] Comment on above: Performed By: #### D ATBMP #### [facility] [address] [address] [address] David Phillips EGFR-AF CZECH >60 Normal >=60 [facility] Comment on above: Performed By: #### D ATBMP #### [facility] [address] [address] [address] David Phillips EGFR-NON AF CZECH >60 Normal >=60 [facility] Comment on above: Performed By: #### D ATBMP #### [facility] [address] [address] [address] David Phillips Glucose [Mass/Vol] 108 mg/dL Critically high 74-106 [facility] Comment on above: Performed By: #### D ATBMP #### [facility] [address] [address] [address] David Phillips HDL NORMAL > or = 60 mg/dl - LO W CARDIOVASCULAR RISK <40 mg/dl - HIGH CARDIOVASCULAR RISK Normal [facility] Comment on above: Performed By: #### D ATBMP #### [facility] [address] [address] [address] David Phillips LDL CALC NORMAL SEE BELOW Normal [facility] Comment on above: Result Comment: <100 mg/dl OPTIMAL 100 - 129 mg/dl NEAR OR ABOVE OPTIMAL 130 - 159 mg/dl BORDERLINE HIGH 160 - 189 mg/dl HIGH >190 mg/dl VERY HIGH Performed By: #### D ATBMP #### [facility] [address] [address] [address] David Phillips Potassium [Moles/Vol] 4.2 mmol/L Normal 3.5-5.1 [facility] Comment on above: Performed By: #### D ATBMP #### [facility] [address] [address] [address] David Phillips Sodium [Moles/Vol] 139 mmol/L Normal 136-145 [facility] Comment on above: Performed By: #### D ATBMP #### [facility] [address] [address] [address] David Phillips Triglyceride [Mass/Vol] 64 mg/dL Normal <=150 [facility] Comment on above: Performed By: #### D ATBMP #### [facility] [address] [address] [address] David Phillips Urea nitrogen [Mass/Vol] 15.0 mg/dL Normal 7.0-18.0 [facility] Comment on above: Performed By: #### D ATBMP #### [facility] [address] [address] [address] David Phillips Urea nitrogen/Creatinine [Mass ratio] 21.1 mg/mg Normal [facility] Comment on above: Performed By: #### D ATBMP #### [facility] [address] [address] [address] David Phillips VLDL CALC 12.8 mg/dL Normal [facility] Comment on above: Performed By: #### D ATBMP #### [facility] [address] [place] [address] Dr. David Phillips GLYCOHEMOGLOBIN A1Con 2021 ADA RECOMMENDATION SEE BELOW Normal [facility] Comment on above: Result Comment: ADA RECOMMENDED LIMIT 4.0 - 6.0 ADA THERAPEUTIC TARGET < 7.0 ACTION SUGGESTED > 7.0 Performed By: #### D ATA1C #### [facility] [address] [place] [address] Dr. David Phillips Glucose [Mass/Vol] 111 mg/dL Normal [facility] Comment on above: Performed By: #### D ATA1C #### [facility] [address] [place] [address] Dr. David Phillips HbA1c (Bld) [Mass fraction] 5.5 % Normal 4.5-6.2 [facility] Comment on above: Performed By: #### D ATA1C #### [facility] [address] [place] [address] Dr. David Phillips SGOTon 02-07-2022 AST [Catalytic activity/Vol] 19 U/L Normal 15-37 [facility] Comment on above: Performed By: #### A LT, AST #### [facility] [address] [place] [address] Dr. David Phillips SGPTon 02-07-2022 ALT [Catalytic activity/Vol] 27 U/L Normal 14-59 [facility] Comment on above: Performed By: #### A LT, AST #### [facility] [address] [place], [place] [id number] Dr. David Phillips CBC AUTO DIFFon 11-28-2021 BASO # 0.0 103/ul Normal 0.0-0.1 [facility] Comment on above: Performed By: #### D ATCBC #### [facility] [address] [place] [address] Dr. David Phillips Basophils/100 WBC (Bld) 0.1 % Critically low 0.2-2.0 [facility] Comment on above: Performed By: #### D ATCBC #### [facility] [address] [place] [address] Dr. David Phillips EO # 0.0 103/ul Normal 0.0-0.7 [facility] Comment on above: Performed By: #### D ATCBC #### [facility] [address] [place] [address] Dr. David Phillips Eosinophils/100 WBC (Bld) 0.0 % Critically low 0.9-7.0 [facility] Comment on above: Performed By: #### D ATCBC #### [facility] [address] [place] [address] Dr. David Phillips Erythrocyte distribution width (RBC) [Ratio] 13.5 % Normal 11.0-15.0 [facility] Comment on above: Performed By: #### D ATCBC #### [facility] [address] [place] [address] Dr. David Phillips Hematocrit (Bld) [Volume fraction] 41.4 % Normal 36.0-48.0 [facility] Comment on above: Performed By: #### D ATCBC #### [facility] [address] [place] [address] Dr. David Phillips Hemoglobin (Bld) [Mass/Vol] 13.4 g/dL Normal 12.0-16.0 [facility] Comment on above: Performed By: #### D ATCBC #### [facility] [address] [place] [address] Dr. David Phillips IG # 0.07 10e3/ul Critically high 0.00-0.03 [facility] Comment on above: Performed By: #### D ATCBC #### [facility] [address] [place] [address] Dr. David Phillips IG % 0.5 % Normal 0.0-0.5 [facility] Comment on above: Performed By: #### D ATCBC #### [facility] [address] [place] [address] Dr. David Phillips LYMPH # 1.0 103/ul Critically low 1.2-3.8 [facility] Comment on above: Performed By: #### D ATCBC #### [facility] [address] [place] [address] Dr. David Phillips Lymphocytes/100 WBC (Bld) 7.1 % Critically low 20.5-60.0 [facility] Comment on above: Performed By: #### D ATCBC #### [facility] [address] [place] [address] Dr. David Phillips MCH (RBC) [Entitic mass] 28.8 pg Normal 26.7-34.0 [facility] Comment on above: Performed By: #### D ATCBC #### [facility] [address] [place] [address] Dr. David Phillips MCHC (RBC) [Mass/Vol] 32.4 g/dL Normal 29.9-35.2 [facility] Comment on above: Performed By: #### D ATCBC #### [facility] [address] [place] [address] Dr. David Phillips MCV (RBC) [Entitic vol] 88.8 fL Normal 81.0-99.0 [facility] Comment on above: Performed By: #### D ATCBC #### [facility] [address] [place] [address] Dr. David Phillips MONO # 0.3 103/ul Normal 0.3-0.8 [facility] Comment on above: Performed By: #### D ATCBC #### [facility] [address] [place] [address] Dr. David Phillips Monocytes/100 WBC (Bld) 1.9 % Normal 1.7-12.0 [facility] Comment on above: Performed By: #### D ATCBC #### [facility] [address] [address] [address] David Phillips NEUT # 12.9 103/ul Critically high 1.4-6.5 [facility] Comment on above: Performed By: #### D ATCBC #### [facility] [address] [address] [address] David Phillips Neutrophils/100 WBC (Bld) 90.4 % Critically high 43.0-75.0 [facility] Comment on above: Performed By: #### D ATCBC #### [facility] [address] [address] [address] David Phillips Platelet mean volume (Bld) [Entitic vol] 9.1 fL Critically low 9.5-13.5 [facility] Comment on above: Performed By: #### D ATCBC #### [facility] [address] [address] [address] David Phillips PLT 296 103/ul Normal 150-450 [facility] Comment on above: Performed By: #### D ATCBC #### [facility] [address] [address] [address] David Phillips RBC 4.66 106/ul Normal 4.20-5.40 [facility] Comment on above: Performed By: #### D ATCBC #### [facility] [address] [address] [address] David Phillips WBC 14.3 103/ul Critically high 4.0-11.0 [facility] Comment on above: Performed By: #### D ATCBC #### [facility] [address] [address] [address] David Phillips BRIANNA- BMP WITH LIPIDon 2021 Anion gap [Moles/Vol] 13.2 mmol/L Normal [facility] Comment on above: Performed By: #### D ATBMP #### [facility] [address] [address] [address] David Phillips Calcium [Mass/Vol] 9.0 mg/dL Normal 8.5-10.1 [facility] Comment on above: Performed By: #### D ATBMP #### [facility] [address] [address] [address] David Phillips Chloride [Moles/Vol] 105 mmol/L Normal 98-107 [facility] Comment on above: Performed By: #### D ATBMP #### [facility] [address] [address] [address] David Phillips Cholesterol [Mass/Vol] 191 mg/dL Normal <=200 [facility] Comment on above: Performed By: #### D ATBMP #### [facility] [address] [address] [address] David Phillips Cholesterol in HDL [Mass/Vol] 71 mg/dL Critically high 40-60 [facility] Comment on above: Performed By: #### D ATBMP #### [facility] [address] [address] [address] David Phillips Cholesterol in LDL [Mass/Vol] 107.4 mg/dL Normal [facility] Comment on above: Performed By: #### D ATBMP #### [facility] [address] [address] [address] David Phillips CO2 [Moles/Vol] 28.7 mmol/L Normal 21.0-32.0 [facility] Comment on above: Performed By: #### D ATBMP #### [facility] [address] [address] [address] David Phillips Creatinine [Mass/Vol] 0.62 mg/dL Normal 0.55-1.02 [facility] Comment on above: Performed By: #### D ATBMP #### [facility] [address] [address] [address] David Phillips EGFR-AF CZECH >60 Normal >=60 [facility] Comment on above: Performed By: #### D ATBMP #### [facility] [address] [address] [address] David Phillips EGFR-NON AF CZECH >60 Normal >=60 [facility] Comment on above: Performed By: #### D ATBMP #### [facility] [address] [address] [address] David Phillips Glucose [Mass/Vol] 128 mg/dL Critically high 74-106 [facility] Comment on above: Performed By: #### D ATBMP #### [facility] [address] [address] [address] David Phillips HDL NORMAL > or = 60 mg/dl - LO W CARDIOVASCULAR RISK <40 mg/dl - HIGH CARDIOVASCULAR RISK Normal [facility] Comment on above: Performed By: #### D ATBMP #### [facility] [address] [address] [address] David Phillips LDL CALC NORMAL SEE BELOW Normal [facility] Comment on above: Result Comment: <100 mg/dl OPTIMAL 100 - 129 mg/dl NEAR OR ABOVE OPTIMAL 130 - 159 mg/dl BORDERLINE HIGH 160 - 189 mg/dl HIGH >190 mg/dl VERY HIGH Performed By: #### D ATBMP #### [facility] [address] [address] [address] David Phillips Potassium [Moles/Vol] 3.9 mmol/L Normal 3.5-5.1 [facility] Comment on above: Performed By: #### D ATBMP #### [facility] [address] [address] [address] David Phillips Sodium [Moles/Vol] 143 mmol/L Normal 136-145 [facility] Comment on above: Performed By: #### D ATBMP #### [facility] [address] [address] [address] David Phillips Triglyceride [Mass/Vol] 63 mg/dL Normal <=150 [facility] Comment on above: Performed By: #### D ATBMP #### [facility] [address] [address] [address] David Phillips Urea nitrogen [Mass/Vol] 15.0 mg/dL Normal 7.0-18.0 [facility] Comment on above: Performed By: #### D ATBMP #### [facility] [address] [address] [address] David Phillips Urea nitrogen/Creatinine [Mass ratio] 24.2 mg/mg Normal [facility] Comment on above: Performed By: #### D ATBMP #### [facility] [address] [address] [address] David Phillips VLDL CALC 12.6 mg/dL Normal [facility] Comment on above: Performed By: #### D ATBMP #### [facility] [address] [address] [address] David Phillips GLYCOHEMOGLOBIN A1Con 2021 ADA RECOMMENDATION SEE BELOW Normal [facility] Comment on above: Result Comment: ADA RECOMMENDED LIMIT 4.0 - 6.0 ADA THERAPEUTIC TARGET < 7.0 ACTION SUGGESTED > 7.0 Performed By: #### D ATCBC #### [facility] [address] [place] [address] Dr. David Phillips Glucose [Mass/Vol] 105 mg/dL Normal [facility] Comment on above: Performed By: #### D ATCBC #### [facility] [address] [address] [address] David Phillips HbA1c (Bld) [Mass fraction] 5.3 % Normal 4.5-6.2 [facility] Comment on above: Performed By: #### D ATCBC #### [facility] [address] [place] [address] Dr. David Phillips SCREENING MAMMOGRAM W/GAIL, BILATERAL*on [...] VERY IMPORTANT TO YOUR HEALTH. THE CURRENT [facility] [employer] GUIDELINES RECOMMENDS ANNUAL MAMMOGRAPHY BEGINNING AT AGE 40 THIS FACILITY USES A REMINDER SYSTEM TO ENSURE ALL PATIENTS RECEIVE REMINDER NOTIFICATIONS AT THE APPROPRIATE TIME BASED ON THE RECOMMENDATIONS OF THIS EXAM. Board Certified Radiologist. Accredited by the ACR and FDA. Report reported and signed by Trell Martin on 06/11/2021 1236 Normal [facility] [employer] LARGE JOINT/BURSA INJECTION AND/OR ASPIRATION: R hip [...] fashion. The patient was prepped with Chloraprep. 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 [facility] X-rays, weightbearin g AP pelvis and [...] sacroiliac joints demonstrate moderate evidence of osteoarthrosis. [facility] CBCon 02-25-2018 ABSOLUTE BAS 0.0 X10 Normal [facility] ABSOLUTE EOS 0.10 X10 Normal [facility] ABSOLUTE NEUTROPHIL COUNT 4.5 x10 Normal 1.0-7.0 [facility] Basophils/100 WBC Auto (Bld) 0.7 % Normal 0.0-2.0 [facility] DTYPE AUTO DIFF Normal [facility] Eosinophils/100 WBC Auto (Bld) 1.9 % Normal 0.0-11.0 [facility] Lymphocytes Auto #/vol (Bld) 1.80 X10 Normal [facility] Lymphocytes/100 WBC Auto (Bld) 25.1 % Normal 20.0-55.0 [facility] Monocytes Auto #/vol (Bld) 0.6 X10 Normal [facility] Monocytes/100 WBC Auto (Bld) 8.3 % Normal 0.0-10.0 [facility] Neutrophils/100 WBC Auto (Bld) 64.0 % Normal 37.0-75.0 [facility] Erythrocyte distribution width Auto Ratio (RBC) 13.4 % Normal 11.5-14.5 [facility] Hematocrit Auto Volume Fraction (Bld) 39.9 % Normal 36.0-48.0 [facility] Hemoglobin mass conc (Bld) 13.4 g/dL Normal 12.0-16.0 [facility] MCH Auto Entitic mass (RBC) 28.7 pg Normal 26.0-35.0 [facility] MCHC Auto mass conc (RBC) 33.5 g/dL Normal 27.0-37.0 [facility] MCV Auto Entitic volume (RBC) 85.7 fL Normal 80.0-100.0 [facility] Platelet mean volume Auto Entitic volume (Bld) 7.3 fL Low 7.4-11.0 [facility] [facility] Platelets Auto #/vol (Bld) 329 /cmm Normal 130.0-400. 0 [facility] RBC Auto #/vol (Bld) 4.66 /cmm Normal 4.0-5.4 [facility] WBC Auto #/vol (Bld) 7.0 /cmm Normal 3.6-11.0 [facility] CHEMISTRY, [facility] ALT enzyme act/vol 30 U/L Normal 9-52 [facility] Calcium mass conc 9.3 mg/dL Normal 8.4-10.2 [facility] Cholesterol in HDL mass conc 49 mg/dL Normal 33-75 [facility] Cholesterol in LDL mass conc 91 MG/DL Normal [facility] Cholesterol in VLDL mass conc 22 mg/dL Normal 5.0-25 [facility] Cholesterol mass conc 162 mg/dL Normal 107-217 [facility] Cholesterol.total/Ch olesterol in HDL mass ratio 3.31 {ratio} Normal [facility] Comment on above: Result Comment: RISK TOTAL/HDL RATIO MEN WOMEN1/2 AVERAGE 3.43 3.27AVERAGE 4.97 4.442X AVERAGE 9.55 7.053X AVERAGE 23.99 11.04 Creatinine mass conc 0.6 mg/dL Low 0.7-1.2 [facility] EST. GFR, >60 Normal [facility] EST. GFR,Non >60 Normal [facility] Gamma glutamyl transferase [Enzymatic activity/volume] in Serum or Plasma 18 IU/L Normal 12-43 [facility] GFR/1.73 sq M predicted among non-blacks MDRD vol rate/area (S/P/Bld) Average GFR for 60-69 years old = 85. Normal [facility] Comment on above: Result Comment: Environmental Sustainability Manager karime Kidney disease, GFR = <60.Kidney failure, GFR = <15.The GFR estimate is not adjusted for extreme body surface area or acute process, nor has it been validated for women or ethnic groups other than and . Glucose mass conc 92 mg/dL Normal 70-100 [facility] Comment on above: Result Comment: NORM AL <100 mg/dLPREDIABETES 101-126 mg/dLDIABETES 126 mg/dL or higher Potassium molar conc 4.3 mmol/L Normal 3.5-5.1 [facility] Sodium molar conc 142 mmol/L Normal 137-145 [facility] Triglyceride mass conc 111 mg/dL Normal 0-150 [facility] Urea nitrogen mass conc (Bld) 17 mg/dL Normal 7-20 [facility] HEMOGLOBIN A1Con 02-25-2018 Glucose mass conc 105 mg/dL Normal [facility] Hemoglobin A1c/Hemoglobin.total mass fraction (Bld) 5.3 % Normal 0-6 [facility] Comment on above: Result Comment: NORM AL <5.7%PREDIABETES 5.7-6.4%DIABETES 6.5% OR HIGHER WRISTon 12-05-2017 WRIST Final ReportAccession No: [id number] Performed: Dec 05 2017 11:45AMExamination: RIGHT [...] GARY BLANCO D.O.Trans: abond : cc: Normal [facility] WRISTon 11-07-2017 WRIST Final ReportAccession No: [id number] Performed: Nov 07 2017 9:58AMExamination: RIGHT [...] MADIE LORENZO M.D.Trans: lcoope : cc: Normal [facility] XR WRIST RIGHT 3+ VIEWS (STA NDARD)on [...] angulation.Distal ulna intact.Carpal bones appear well positioned. Fzpc-qg-rsdinwpf arthritic changes seen of proximal carpal row, greatest laterally.IMPRESSION:1. Healing distal radial nondisplaced nonarticular transverse fracture now seen.2. Chronic dgel-ff-xnjwasrs arthritic changes, greatest involving lateral carpal joints.ARR/trnWorkstation ID: [id number] by: ANDREZ ECHAVARRIA on FriOct 09, 2017 7:30:06 AM EDTTranscribed by: LANI EDWARDS on FriOct 09, 2017 9:26:53 AM EDTFinalized by: ANDREZ ECHAVARRIA on FriOct 09, 2017 4:08:57 PM EDT [facility] Comment on above: Order Comment: Reaso n for exam?:rt wrist painInjury/Trauma or Illness?:Injury/TraumaHow long have you had these symptoms (acute/chronic)?:AcuteHistory of cancer?:unkSurgeries, chemotherapy, or radiation?:carpal tunnelType of Exam?:Subsequent/Follow-upMechanism of injury?:fall XR WRIST RIGHT 3 VIEWSon XR WRIST RIGHT 3 VIEWS EXAMINATION: XR WRIST RIGHT 3 VIEWS [id number] CLINICAL HISTORY: 61-year-old female with history of fall swelling right posterior wristFINDINGS/IMPRESSION: Comparison: Compared to none available.No definite acute fracture or malalignment of the right wrist.Focal soft tissue swelling dorsally is seen at the level of the carpal metacarpal articulation. No pathologic calcifications. Blunted appearance of the ulnar styloid could relate to remote trauma. Normal [facility] Mammogramon 11-07-2016 DR Mammogram Patient Name: Fe YIN : [id number]: [id number] Date: [id number] #: [id number] Class: OPhysician: [place]chis COUCH Physician: , Study [...] [facility] and the [employer] [place] [employer] recommend annual screening mammograms for women age 40 and older.Dictated: Isidro Morrison 11/07/2016 15:09Transcribed: Isidro Morrison 11/07/2016 15:11Electronically Signed: Isidro Morrison 11/07/2016 15:11[facility] [place] [address] [email or web address], [place] [address] [email or web address] [facility] Vital Signs Date Time Vital Sign Value Performing Clinician Facility 10-01-2024 11:29-0400 Body height 165.1 cm Karen Cardoso DO Work Phone: [facility] 10-01-2024 11:29-0400 Body weight 70.3 kg Karen Cardoso DO Work Phone: [facility] 08-26-2024 13:19-0400 Diastolic blood pressure 74 mm[Hg] Karen Cardoso DO Work Phone: [facility] 08-26-2024 13:19-0400 Respiratory rate 18 /min Karen Cardoso DO Work Phone: [facility] 08-26-2024 13:19-0400 SaO2% (BldA) [Mass fraction] 96 % Karen Cardoso DO Work Phone: [facility] 08-26-2024 13:19-0400 Systolic blood pressure 120 mm[Hg] Karen Cardoso DO Work Phone: [facility] 07-27-2024 10:05-0400 Body mass index (BMI) [Ratio] 25.79 kg/m2 Nicole Nataprawira DO Work Phone: [facility] 07-27-2024 10:05-0400 Body weight 70.31 kg Nicole Nataprawira DO Work Phone: [facility] 07-27-2024 10:05-0400 Diastolic blood pressure 80 mm[Hg] Nicole Nataprawira DO Work Phone: [facility] 07-27-2024 10:05-0400 Systolic blood pressure 118 mm[Hg] Nicole Nataprawira DO Work Phone: [facility] 06-16-2024 08:42-0500 Body height 165.1 cm Kaern Cardoso DO Work Phone: [facility] 06-16-2024 08:42-0500 Body mass index (BMI) [Ratio] 26.1 kg/m2 Karen Cardoso DO Work Phone: [facility] 06-16-2024 08:42-0500 Body temperature 97.8 [degF] Karen Cardoso DO Work Phone: [facility] 06-16-2024 08:42-0500 Body weight 71.21 kg Karen Cardoso DO Work Phone: [facility] 06-16-2024 08:42-0500 Diastolic blood pressure 74 mm[Hg] Karen Cardoso DO Work Phone: [facility] 06-16-2024 08:42-0500 Heart rate 82 /min Karen Cardoso DO Work Phone: [facility] 06-16-2024 08:42-0500 SaO2% (BldA) [Mass fraction] 97 % Karen Cardoso DO Work Phone: [facility] 06-16-2024 08:42-0500 Systolic blood pressure 112 mm[Hg] Karen Serranosrinivas DO Work Phone: [facility] 01-05-2024 11:50-0400 Diastolic blood pressure 60 mm[Hg] DO Karen Cardoso Work Phone: [facility] 01-05-2024 11:50-0400 Heart rate 88 /min DO Karen Cardoso Work Phone: [facility] 01-05-2024 11:50-0400 Respiratory rate 16 /min DO Karen Cardoso Work Phone: [facility] 01-05-2024 11:50-0400 SaO2% (BldA) [Mass fraction] 96 % DO Karen Cardoso Work Phone: [facility] 01-05-2024 11:50-0400 Systolic blood pressure 114 mm[Hg] DO Karen Walker Work Phone: [facility] 01-05-2024 11:20-0400 Inhaled oxygen flow rate 1 L/min DO Karen Walker Work Phone: [facility] 01-05-2024 11:00-0400 Body temperature 98 [degF] DO Karen Girsrinivas Work Phone: [facility] 01-05-2024 06:20-0400 Body height 165.1 cm DO Karen Girvin Work Phone: [facility] 01-05-2024 06:20-0400 Body weight 70 kg DO Karen Girvin Work Phone: [facility] 12-25-2023 14:27-0400 Body height 165.1 cm DO Karen Girsrinivas Work Phone: [facility] 12-25-2023 14:27-0400 Body mass index (BMI) [Ratio] 25.7 kg/m2 DO Karen Girvin Work Phone: [facility] 12-25-2023 14:27-0400 Body weight 70 kg DO Karen Girsrinivas Work Phone: [facility] 12-12-2023 09:09-0400 Body height 165.1 cm DO Karen Cardoso Work Phone: [facility] 12-12-2023 09:09-0400 Body mass index (BMI) [Ratio] 25.7 kg/m2 DO Karen Girsrinivas Work Phone: [facility] 12-12-2023 09:09-0400 Body temperature 97.4 [degF] DO Karen Girsrinivas Work Phone: [facility] 12-12-2023 09:09-0400 Body weight 70.3 kg DO Karen Girsrinivas Work Phone: [facility] 12-12-2023 09:09-0400 Diastolic blood pressure 76 mm[Hg] DO Karen Girvin Work Phone: [facility] 12-12-2023 09:09-0400 Heart rate 76 /min DO Karen Girvin Work Phone: [facility] 12-12-2023 09:09-0400 Respiratory rate 16 /min DO Karen Girsrinivas Work Phone: [facility] 12-12-2023 09:09-0400 SaO2% (BldA) [Mass fraction] 98 % DO Karen Cardoso Work Phone: [facility] 12-12-2023 09:09-0400 Systolic blood pressure 130 mm[Hg] DO Karen Cardoso Work Phone: [facility] 09-15-2023 13:54-0400 Body height 165.1 cm DO Karen Cardoso Work Phone: [facility] 09-15-2023 13:54-0400 Body mass index (BMI) [Ratio] 26.1 kg/m2 DO Karen Cardoso Work Phone: [facility] 09-15-2023 13:54-0400 Body temperature 97.3 [degF] DO Karen Cardoso Work Phone: [facility] 09-15-2023 13:54-0400 Body weight 71.21 kg DO Karen Cardoso Work Phone: [facility] 09-15-2023 13:54-0400 Diastolic blood pressure 78 mm[Hg] DO Karen Cardoso Work Phone: [facility] 09-15-2023 13:54-0400 Heart rate 81 /min DO Karen Cardoso Work Phone: [facility] 09-15-2023 13:54-0400 SaO2% (BldA) [Mass fraction] 97 % DO Karen Cardoso Work Phone: [facility] 09-15-2023 13:54-0400 Systolic blood pressure 118 mm[Hg] DO Karen Cardoso Work Phone: [facility] 06-26-2023 09:10-0500 Body height 165.1 cm DO Karen Cardoso Work Phone: [facility] 06-26-2023 09:10-0500 Body mass index (BMI) [Ratio] 26.6 kg/m2 DO Karen Cardoso Work Phone: [facility] 06-26-2023 09:10-0500 Body temperature 97.9 [degF] DO Karen Cardoso Work Phone: [facility] 06-26-2023 09:10-0500 Body weight 72.8 kg DO Karen Cardoso Work Phone: [facility] 06-26-2023 09:10-0500 Diastolic blood pressure 78 mm[Hg] DO Karen Cardoso Work Phone: [facility] 06-26-2023 09:10-0500 Heart rate 91 /min DO Karen Cardoso Work Phone: [facility] 06-26-2023 09:10-0500 Respiratory rate 18 /min DO Karen Cardoso Work Phone: [facility] 06-26-2023 09:10-0500 SaO2% (BldA) [Mass fraction] 98 % DO Karen Cardoso Work Phone: [facility] 06-26-2023 09:10-0500 Systolic blood pressure 128 mm[Hg] DO Karen Cardoso Work Phone: [facility] 06-13-2023 09:14-0500 Body height 165.1 cm DO Karen Cardoso Work Phone: [facility] 06-13-2023 09:14-0500 Body mass index (BMI) [Ratio] 26.1 kg/m2 DO Karen Cardoso Work Phone: [facility] 06-13-2023 09:14-0500 Body weight 71.21 kg DO Karen Cardoso Work Phone: [facility] 05-14-2023 08:15-0500 Body height 165.1 cm Finn Ortez II Other [facility] 12-12-2022 09:10-0400 Body height 165.1 cm Karen Cardoso Other [employer] Other 12-12-2022 09:10-0400 Body mass index (BMI) [Ratio] 27.12 kg/m2 Karen Cardoso Other [employer] Other 12-12-2022 09:10-0400 Body temperature 98.6 [degF] Karen Cardoso Other [employer] Other 12-12-2022 09:10-0400 Body weight 73.94 kg Karen Cardoso Other [employer] Other 12-12-2022 09:10-0400 Diastolic blood pressure 78 mm[Hg] Karen Cardoso Other [employer] Other 12-12-2022 09:10-0400 Respiratory rate 18 /min Karen Cardoso Other [employer] Other 12-12-2022 09:10-0400 SaO2% (BldA) [Mass fraction] 96 % Karen Cardoso Other [employer] Other 12-12-2022 09:10-0400 Systolic blood pressure 124 mm[Hg] Karen Cardoso Other [employer] Other 07-12-2022 11:00-0400 Body height 165.1 cm Finn Ortez II Other [employer] Other 07-12-2022 11:00-0400 Body mass index (BMI) [Ratio] 26.62 kg/m2 Finn Sebewaing II Other [employer] Other 07-12-2022 11:00-0400 Body weight 72.58 kg Finn Dalalisle II Other [employer] Other 06-13-2022 09:10-0500 Body height 165.1 cm Karen Cardoso Other [employer] Other 06-13-2022 09:10-0500 Body mass index (BMI) [Ratio] 27.29 kg/m2 Karen Maggiesrinivas Other [employer] Other 06-13-2022 09:10-0500 Body weight 74.39 kg Karen Cardoso Other [employer] Other 06-13-2022 09:10-0500 Diastolic blood pressure 80 mm[Hg] Karen Cardoso Other [employer] Other 06-13-2022 09:10-0500 Respiratory rate 18 /min Karen Cardoso Other [employer] Other 06-13-2022 09:10-0500 SaO2% (BldA) [Mass fraction] 98 % Karen Cardoso Other [employer] Other 06-13-2022 09:10-0500 Systolic blood pressure 132 mm[Hg] Karen Cardoso Other [employer] Other 02-12-2022 10:50-0400 Body height 165.1 cm Karen Cardoso Other [employer] Other 12-06-2021 11:30-0400 Body height 165.1 cm Karen Cardoso Other [employer] Other 12-06-2021 11:30-0400 Body mass index (BMI) [Ratio] 25.62 kg/m2 Karen Cardoso Other [employer] Other 12-06-2021 11:30-0400 Body temperature 97.6 [degF] Karen Cardoso Other [employer] Other 12-06-2021 11:30-0400 Body weight 69.85 kg Karen Cardoso Other [employer] Other 12-06-2021 11:30-0400 Diastolic blood pressure 82 mm[Hg] Karen Cardoso Other [employer] Other 12-06-2021 11:30-0400 Respiratory rate 16 /min Karen Walker Other [employer] Other 12-06-2021 11:30-0400 SaO2% (BldA) [Mass fraction] 96 % Karen Serranosrinivas Other [employer] Other 12-06-2021 11:30-0400 Systolic blood pressure 122 mm[Hg] Karen Cardoso Other [employer] Other 05-23-2020 09:12-0500 BMI (Body Mass Index) 28.06 kg/m2 [facility] 05-23-2020 09:12-0500 Body weight 76.48 kg [facility] 05-23-2020 09:12-0500 Height 165.1 cm [facility] 05-02-2020 12:42-0500 BMI (Body Mass Index) 28.36 kg/m2 [facility] 05-02-2020 12:42-0500 Body weight 77.29 kg [facility] 05-02-2020 12:42-0500 Height 165.1 cm [facility] 04-29-2020 14:49-0500 Body surface area Derived from formula 1.8 m2 [facility] 04-27-2020 08:58-0500 BMI (Body Mass Index) 26.63 kg/m2 [facility] 04-27-2020 08:58-0500 Body weight 72.58 kg [facility] 04-27-2020 08:58-0500 Height 165.1 cm [facility] 07-27-2018 08:54-0400 BMI (Body Mass Index) 26.48 kg/m2 [facility] 07-27-2018 08:54-0400 Body Temperature 98.49 [degF] [facility] 07-27-2018 08:54-0400 Body weight 73.85 kg [facility] 07-27-2018 08:54-0400 BP Diastolic 60 mm[Hg] [facility] 07-27-2018 08:54-0400 BP Systolic 110 mm[Hg] [facility] 07-27-2018 08:54-0400 Height 167 cm [facility] 07-27-2018 08:54-0400 Pulse (Heart Rate) 65 /min [facility] 07-27-2018 08:54-0400 Pulse Oximetry 96 % [facility] 07-27-2018 08:54-0400 Respiratory Rate 16 /min [facility] 05-11-2018 15:19-0500 BMI (Body Mass Index) 26.57 kg/m2 [facility] Work Phone: 05-11-2018 15:19-0500 Body Temperature 97.3 [degF] [facility] Work Phone: 05-11-2018 15:19-0500 BP Diastolic 68 mm[Hg] [facility] Work Phone: 05-11-2018 15:19-0500 BP Systolic 118 mm[Hg] [facility] Work Phone: 05-11-2018 15:19-0500 Height 167 cm [facility] Work Phone: 05-11-2018 15:19-0500 Pulse (Heart Rate) 73 /min [facility] Work Phone: 05-11-2018 15:19-0500 Pulse Oximetry 97 % [facility] Work Phone: 05-11-2018 15:19-0500 Respiratory Rate 16 /min [facility] Work Phone: 05-11-2018 15:19-0500 Weight 74.12 kg [place] Work Phone: 03-30-2018 13:16-0500 BMI (Body Mass Index) 26.7 kg/m2 [facility] Work Phone: 03-30-2018 13:16-0500 Body Temperature 97.7 [degF] [facility] Work Phone: 03-30-2018 13:16-0500 BP Diastolic 58 mm[Hg] [facility] Work Phone: 03-30-2018 13:16-0500 BP Systolic 116 mm[Hg] [facility] Work Phone: 03-30-2018 13:16-0500 Height 167 cm [facility] Work Phone: 03-30-2018 13:16-0500 Pulse (Heart Rate) 66 /min [place] Work Phone: 03-30-2018 13:16-0500 Pulse Oximetry 97 % [facility] Work Phone: 03-30-2018 13:16-0500 Respiratory Rate 16 /min [facility] Work Phone: 03-30-2018 13:16-0500 Weight 74.48 kg [place] [facility] Work Phone: 12-05-2017 11:24-0400 BMI (Body Mass Index) 26.61 kg/m2 [facility] 12-05-2017 11:24-0400 BP Diastolic 78 mm[Hg] [facility] 12-05-2017 11:24-0400 BP Systolic 130 mm[Hg] [facility] 12-05-2017 11:24-0400 Height 162.6 cm [facility] 12-05-2017 11:24-0400 Pulse (Heart Rate) 57 /min [facility] 12-05-2017 11:24-0400 Weight 70.31 kg [facility] 11-07-2017 09:44-0400 BMI (Body Mass Index) 26.61 kg/m2 [facility] 11-07-2017 09:44-0400 Height 162.6 cm [facility] 11-07-2017 09:44-0400 Weight 70.31 kg [facility] 10-08-2017 14:41-0400 BMI (Body Mass Index) 26.61 kg/m2 [facility] 10-08-2017 14:41-0400 Height 162.6 cm [facility] 10-08-2017 14:41-0400 Weight 70.31 kg [facility] Encounters Encounter Date Encounter Type Care Provider Facility Start: 10-26-2024 ambulatory Karen Cardoso Facility:[facility] Start: 10-01-2024 Non-patient / Non-visit Karen Cardoso DO Work Phone: [facility] Work Phone: Start: 10-01-2024 End: 10-01-2024 Patient encounter procedure Karen Cardoso DO Work Phone: [facility] Work Phone: Start: 10-01-2024 End: 10-01-2024 ambulatory Karen Cardoso DO Work Phone: [facility] Work Phone: Start: 09-14-2024 End: 09-14-2024 Bamboo flowsheet Angela Linda MD Work Phone: [facility] Start: 09-14-2024 End: 09-14-2024 Bamboo flowsallegra Linda MD Work Phone: [facility] Start: 09-14-2024 End: 09-14-2024 Office outpatient visit 15 minutes Angela Linda MD Work Phone: [facility] Comment on above: Melanocytic nevus of trunk (Primary Dx); Lentigines; Inflammatory papule; Notalgia paresthetica Start: 09-14-2024 End: 09-14-2024 ambulatory ANGELA LINDA Not Available Start: 09-09-2024 End: 09-09-2024 ambulatory NICOLE HAWKINS Not Available Start: 08-26-2024 End: 08-26-2024 ambulatory Karen Cardoso DO Work Phone: [facility] Work Phone: Start: 08-26-2024 End: 08-26-2024 Patient encounter procedure Karen Cardoso DO Work Phone[facility] Work Phone: Start: 07-27-2024 End: 07-27-2024 Patient encounter status Nicole Hawkins DO Work Phone: [facility] Work Phone: Start: 07-27-2024 End: 07-27-2024 Periodic preventive med est patient 65yrs& older Nicole Hawkins DO Work Phone: [facility] Comment on above: Encounter for gyneco logical examination (general) (routine) with abnormal findings (Primary Dx); Cystocele, midline; Other screening mammogram; Hx of hysterectomy for benign disease; Hx of BSO (bilateral salpingo-oophorectomy) Start: 07-27-2024 End: 07-27-2024 ambulatory NICOLE HAWKINS Not Available Start: 07-27-2024 Registered Recurring Karen espino DO Work Phone: [facility] Start: 06-16-2024 End: 06-16-2024 ambulatory Karen Cardoso DO Work Phone: [facility] Work Phone: Start: 06-16-2024 End: 06-16-2024 Patient encounter procedure Karen Cardoso DO Work Phone: [facility] Work Phone: Start: 06-11-2024 Non-patient / Non-visit Karen Cardoso DO Work Phone: [facility] Work Phone: Start: 05-20-2024 End: 05-20-2024 Patient encounter procedure [facility] Comment on above: Sensorineural hearin g loss, bilateral (Primary Dx) Start: 05-20-2024 End: 05-20-2024 ambulatory MOTAPRAWIRA Not Available Start: 05-18-2024 Registered Recurring Karen Serrano srinivas DO Work Phone: [facility] Start: 05-04-2024 End: 05-04-2024 Bamboo flowsheet Sheryl Cooper CCC-A Work Phone: [facility] Start: 05-04-2024 End: 05-04-2024 Bamboo flowsheet Sheryl Cooper CCC-A Work Phone: [facility] Start: 05-04-2024 End: 05-04-2024 Clinical Support Sheryl Cooper CCC-A Work Phone: [facility] Comment on above: Sensorineural hearin g loss, bilateral (Primary Dx) Start: 05-04-2024 End: 05-04-2024 ambulatory SHERYL COOPER Not Available Start: 04-07-2024 End: 04-07-2024 Patient encounter procedure Karen Cardoso DO Work Phone: [facility] Work Phone: Start: 04-07-2024 End: 04-07-2024 ambulatory Karen Cardoso Facility:[facility] Start: 02-24-2024 End: 02-24-2024 ambulatory DO Karen Cardoso Work Phone: [facility] Work Phone: Start: 02-24-2024 End: 02-24-2024 Patient encounter procedure DO Karen Cardoso Work Phone: [facility] Jorge Orthopedics Work Phone: Start: 02-10-2024 Registered Recurring DO Karen Cardoso Work Phone: [facility] Start: 02-05-2024 Non-patient / Non-visit DO Saurabh id Girvin Work Phone: [facility] Work Phone: Start: 01-21-2024 End: 01-21-2024 ambulatory DO Karen Cardoso Work Phone: [facility] Work Phone: Start: 01-21-2024 End: 01-21-2024 Patient encounter procedure DO Karen Cardoso Work Phone: [facility] Work Phone: Start: 01-05-2024 Non-patient / Non-visit DO Saurabh id Girsrinivas Work Phone: [facility] Work Phone: Start: 01-05-2024 End: 01-05-2024 Admission to same day surgery center DO Karen Cardoso Work Phone: [facility] [place] Start: 01-05-2024 End: 01-05-2024 ambulatory DO Karen Cardoso Work Phone: [facility] Work Phone: Start: 12-30-2023 Registered Recurring DO Karen Cardoso Work Phone: [facility] Start: 12-26-2023 End: 12-26-2023 ambulatory DO Karen Cardoso Work Phone: [facility] Work Phone: Start: 12-26-2023 End: 12-26-2023 Patient encounter procedure DO Karen Cardoso Work Phone: [facility] Work Phone: Start: 12-25-2023 End: 12-25-2023 Patient encounter procedure DO Karen Cardoso Work Phone: [facility] Work Phone: Start: 12-25-2023 Registered Recurring DO Karen Cardoso Work Phone: [facility] [employer] [place] [employer] [place] Start: 12-25-2023 End: 12-25-2023 ambulatory DO Karen Cardoso Work Phone: [facility] Work Phone: Start: 12-22-2023 End: 12-22-2023 Patient encounter procedure DO Karen Cardoso Work Phone: [facility] Work Phone: Start: 12-22-2023 End: 12-22-2023 ambulatory DO Karen Cardoso Work Phone: [facility] Work Phone: Start: 12-22-2023 Encounter for preprocedural laboratory examination Finn Ortez II [facility] Start: 12-19-2023 Non-patient / Non-visit DO Saurabh id Girsrinivas Work Phone: [facility] Work Phone: Start: 12-19-2023 Non-patient / Non-visit DO Saurabh id Girvin Work Phone: [facility] Physician [facility] Work Phone: Start: 12-12-2023 Patient encounter status DO José larkinpipo Walker Work Phone: [facility] Start: 12-12-2023 End: 12-12-2023 ambulatory DO Karen Cardoso Work Phone: [facility] Work Phone: Start: 12-12-2023 End: 12-12-2023 Patient encounter procedure DO Karen Serranosrinivas Work Phone: [facility] Family Medicine [facility] Work Phone: Start: 12-06-2023 Non-patient / Non-visit DO Saurabh Cardoso Work Phone: [facility] Work Phone: Start: 11-20-2023 Registered Recurring DO Karen Cardoso Work Phone: [facility] Start: 11-19-2023 End: 11-19-2023 Patient encounter procedure DO Karen Serranosrinivas Work Phone: [facility] Start: 11-19-2023 End: 11-19-2023 ambulatory DO Karen Maggiesrinivas Work Phone: [facility] Work Phone: Start: 11-19-2023 End: 11-19-2023 ambulatory DO Karen Serranosrinivas Work Phone: [facility] Work Phone: Start: 11-19-2023 End: 11-19-2023 Patient encounter procedure DO Karen Serranosrinivas Work Phone: [facility] Work Phone: Start: 11-11-2023 Registered Recurring DO Karen Cardoso Work Phone: [facility] Start: 11-05-2023 End: 11-05-2023 ambulatory MOTAPRAWIRA Not Available Start: 09-18-2023 End: 09-18-2023 ambulatory DO Karen Serranosrinivas Work Phone: [facility] Work Phone: Start: 09-18-2023 End: 09-18-2023 Patient encounter procedure DO Karen Serranosrinivas Work Phone: [facility] Work Phone: Start: 09-15-2023 End: 09-15-2023 Patient encounter procedure DO Karen Serranosrinivas Work Phone: [facility] Family Medicine [place] Work Phone: Start: 09-15-2023 End: 09-15-2023 ambulatory DO Karen Cardoso Work Phone: [facility] Work Phone: Start: 09-15-2023 End: 09-15-2023 Departed Referred DO Karen Cardoso Work Phone: [facility] [place] Work Phone: Start: 06-26-2023 End: 06-26-2023 Patient encounter procedure DO Karen Cardoso Work Phone: [facility] Physician [facility] Work Phone: Start: 06-23-2023 Registered Recurring DO Karen Cardoso Work Phone: [facility] Start: 06-23-2023 Non-patient / Non-visit DO Saurabh Cardoso Work Phone: [facility] Physician [facility] Work Phone: Start: 06-13-2023 End: 06-13-2023 ambulatory DO Karen Cardoso Work Phone: [facility] Work Phone: Start: 06-13-2023 End: 06-13-2023 Patient encounter procedure DO Karen Cardoso Work Phone: [facility] Work Phone: Start: 05-14-2023 End: 05-14-2023 ambulatory Finn Shultzle II Other [employer] Other Start: 05-14-2023 Office outpatient vi sit 15 minutes iFnn Dalalisle II [facility] Start: 05-14-2023 End: 05-14-2023 Patient encounter procedure DO Karen Walker Work Phone: [facility]- Start: 04-15-2023 End: 04-15-2023 ambulatory Karen Cardoso Other [employer] Other Start: 04-15-2023 Telephone encounter Karen Cardoso [facility] [place] Start: 03-18-2023 Registered Recurring DO Karen Cardoso Work Phone: [facility] Start: 01-09-2023 End: 01-09-2023 ambulatory Karen Cardoso Other [employer] Other Start: 01-09-2023 Telephone encounter Karen Cardoso [facility] Start: 12-17-2022 End: 12-17-2022 ambulatory Karen Cardoso Other [employer] Other Start: 12-17-2022 Telephone encounter Karen Cardoso [facility] Start: 12-13-2022 End: 12-13-2022 ambulatory Karen Cardoso Other [employer] Other Start: 12-13-2022 Telephone encounter Karen Cardoso [facility] Start: 12-12-2022 End: 12-12-2022 ambulatory Karen Cardoso Other [employer] Other Start: 12-12-2022 Office outpatient vi sit 25 minutes Karen Cardoso [facility] [place] Start: 09-02-2022 End: 09-02-2022 ambulatory Karen Cardoso Other [employer] Other Start: 09-02-2022 Telephone encounter Karen Cardoso [facility] Start: 08-27-2022 End: 08-27-[address] KAREN CARDOSO Facility:[facility] Start: 08-01-2022 End: 08-01-2022 ambulatory Karen Cardoso Other [employer] Other Start: 08-01-2022 Telephone encounter Karen Cardoso [facility] Start: 07-18-2022 End: 07-18-2022 ambulatory Finn Ortez II Other [employer] Other Start: 07-18-2022 Telephone encounter Finn Ortez II [facility] Start: 07-12-2022 FQHC visit new patient Finn hollingsworth II [facility] Start: 07-12-2022 End: 07-12-2022 ambulatory DO Karen Cardoso Work Phone: [facility] Work Phone: Start: 07-12-2022 End: 07-12-2022 Patient encounter procedure DO Karen Cardoso Work Phone: [facility] Start: 06-13-2022 End: 06-13-2022 ambulatory Karen Cardoso Other [employer] Other Start: 06-13-2022 Office outpatient vi sit 15 minutes Karen Cardoso [facility] Start: 03-12-2022 Telephone encounter Karen Cardoso [facility] Start: 03-12-2022 End: 03-13-2022 ambulatory NONE LISTED REQUEST [employer] Other Start: 03-06-2022 End: 03-06-2022 ambulatory Karen Cardoso Other [employer] Other Start: 03-06-2022 Telephone encounter Karen Cardoso [facility] Start: 02-12-2022 End: 02-12-2022 ambulatory Karen Cardoso Other [employer] Other Start: 02-12-2022 Telephone encounter Karen Cardoso [facility] Start: 02-07-2022 Telephone [facility] Start: 02-07-2022 End: 02-08-[address] KAREN CARDOSO [facility] Other Start: 12-06-2021 End: 12-06-2021 ambulatory Karen Cardoso Other [employer] Other Start: 12-06-2021 Office outpatient vi sit 25 minutes Karen Cardoso [facility] Start: 12-03-2021 End: 12-03-2021 ambulatory Karen Cardoso Other [employer] Other Start: 12-03-2021 Telephone encounter Karen Cardoso [facility] Start: 11-28-2021 End: 11-29-2021 ambulatory NONE LISTED REQUEST Facility: Start: 02-06-2021 End: 02-10-2021 ambulatory KAREN CARDOSO [facility] Start: 06-05-2020 End: 06-05-2020 Orders Only Annmarie Xavier Work Phone: [facility] Start: 05-23-2020 End: 05-23-2020 Office outpatient visit 15 minutes Chito Land Work Phone: [facility] Comment on above: Primary osteoarthrit is of right hip (Primary Dx); Greater trochanteric bursitis of right hip Start: 05-02-2020 End: 05-02-2020 Patient encounter procedure Chito Land Work Phone: [facility] Comment on above: Primary osteoarthrit is of right hip (Primary Dx); Greater trochanteric bursitis of right hip Start: 04-27-2020 End: 04-27-2020 Subsequent hospital visit by physician Chito Land Work Phone: [facility] Comment on above: Arrived Start: 04-27-2020 End: 04-27-2020 Office outpatient new 30 minutes Chito Land Work Phone: [facility] Comment on above: Primary osteoarthrit is of right hip (Primary Dx); Greater trochanteric bursitis of right hip; Right hip pain Start: 07-27-2018 End: 07-27-2018 Patient encounter procedure [facility] Start: 07-27-2018 End: 07-27-2018 Office outpatient visit 15 minutes Payton James Work Phone: [facility] Comment on above: Acute swimmer's ear of both sides (Primary Dx) Start: 06-21-2018 End: 06-21-2018 Refill Paytonkimo James Work Phone: [facility] Start: 06-16-2018 End: 06-16-2018 Refill Paytonkimo James Work Phone: [facility] Start: 05-11-2018 Patient encounter procedure [facility] Start: 05-11-2018 End: 05-11-2018 Office outpatient visit 15 minutes Payton James Work Phone: [facility] Comment on above: Recurrent major depr essive disorder, in partial remission (Primary Dx); Anxiety Start: 04-09-2018 End: 04-09-2018 Patient encounter procedure [place] [facility] Comment on above: Prescription Clarifi cation Start: 04-08-2018 End: 04-08-2018 Patient encounter procedure Other Other [facility] Start: 03-30-2018 End: 03-30-2018 Patient encounter procedure Provider Sebas [facility] Start: 03-30-2018 End: 03-30-2018 Office outpatient visit 15 minutes Payton James Work Phone: [facility] Comment on above: Recurrent major depr essive disorder, in partial remission (Primary Dx); Anxiety Start: 03-25-2018 End: 03-25-2018 Patient encounter procedure Payton James Work Phone: [facility] Comment on above: Medication Managemen t Start: 03-21-2018 End: 03-21-2018 Refill Payton James Work Phone: [facility] Start: 03-12-2018 Patient encounter procedure KEARSARGE Felipa JAMES [facility] Start: 03-12-2018 End: 03-12-2018 Patient encounter procedure Payton Jamse Work Phone: [facility] Comment on above: Arrived Start: 03-03-2018 Patient encounter procedure PAYTONKIMO JAMES [facility] Start: 02-25-2018 Patient encounter procedure [facility] NON-PATIENT [facility] Start: 12-05-2017 Patient encounter Sendy Preston ity:[place] Start: 12-05-2017 End: 12-05-2017 Patient encounter Isidro Birch Work Phone: [facility] Start: 12-05-2017 End: 12-05-2017 Office outpatient visit 10 minutes Isidro Birch Work Phone: [facility] Start: 11-07-2017 Patient encounter Sendy Preston ity:[place] Start: 11-07-2017 End: 11-07-2017 Patient encounter Isidro Birch Work Phone: [facility] Start: 11-07-2017 End: 11-07-2017 Office outpatient visit 10 minutes Isidro Birch Work Phone: [facility] Start: 10-08-2017 End: 10-09-2017 Ambulatory Isidro Birch Work Phone: [facility] Start: 10-08-2017 End: 10-08-2017 Office outpatient visit 15 minutes Isidro Birch Work Phone: [facility] Start: 10-08-2017 End: 10-08-2017 Ambulatory Isidro Birch Work Phone: [facility] Start: 09-15-2017 End: 09-15-2017 Emergency department patient visit RODRIGO CULP [facility] Start: 05-27-2017 End: 05-27-2017 Ambulatory DESIRE BRITT [facility] Ambula tory Start: 02-18-2017 Ambulatory CHIKI QUINTERO [facility] Amb[facility] Start: 11-07-2016 End: 11-08-2016 Ambulatory [facility] Start: 12-13-2014 Patient encounter DESIRE MOREJON [facility] Procedures Date Procedure Procedure Detail Performing Clinician Start: 10-01-2024 Radionuclide myocard ial perfusion stress study Karen Cardoso DO Work Phone: Start: 09-09-2024 Mammography Angela holder MD Work Phone: Start: 04-07-2024 Plain X-ray of right hip Karen Cardoso DO Work Phone: Start: 02-24-2024 Plain X-ray of right hip [...] Surgery: [id number] Result Comment: PERF ORMED BY: [facility] [address] [place] [address] PATHOLOGIST COMMUNICATIONS ADMINISTRATOR KOMAL COFFMAN M.D. Start: 11-19-2023 Methicillin resistan t Staphylococcus aureus culture DO Karen Cardoso Work Phone: Start: 09-15-2023 Urine culture DO Karen Cardoso Work Phone: Start: 08-29-2023 Mammography Sheryl Walden CCC-Arash Work Phone: Start: 06-13-2023 Plain X-ray of right hip DO Karen Cardoso Work Phone: Start: 07-12-2022 Plain X-ray of right hip DO Karen Cardoso Work Phone: Start: 05-02-2020 Arthrocentesis aspir &/inj major jt/bursa w/us Chito S Emery Work Phone: Start: 03-13-2018 Mammography [facility] NO N-PATIENT FAIRS Start: 10-08-2016 Colonoscopy Annmarie Marty lee Start: 03-25-2016 Mammography Annmarie Marty roaliciazana Start: 01-24-2015 End: 01-24-2015 Colonoscopy Historical Provider Plan of Treatment Date Care Activity Detail Author Start: 03-10-2027 Tetanus vaccination [facility] Start: 10-08-2026 Screening colonoscopy [facility] Start: 10-08-2026 Screening for malign ant neoplasm of colon [facility] Start: 09-14-2025 End: 09-14-2025 Patient encounter procedure 09/14/2025 10:15 AM EDT Office Visit [facility] [address] [place] [address] Angela Linda MD [address] [place], [place] [id number] [facility] Start: 09-09-2025 Screening for malign ant neoplasm of breast Mammogram [facility] Start: 07-28-2025 End: 07-28-2025 Patient encounter procedure 07/28/2025 9:30 AM EDT Office Visit [facility] [address] [address] Nicole Hawkins DO [address] [address] [facility] Start: 01-24-2025 Screening for malign ant neoplasm of colon [facility] Start: 12-27-2024 Influenza vaccination Influenz a Vaccine (Season Ended) [facility] Start: 09-14-2024 End: 09-14-2024 Patient encounter procedure [facility] Comment on above: Arrived Start: 08-28-2024 Screening for malign ant neoplasm of breast Mammogram [facility] Start: 08-26-2024 [facility] Start: 07-27-2024 End: 07-27-2024 Patient encounter procedure 07/27/2024 11:15 AM EDT Office Visit [facility] [address] [id number] Nicole Hawkins DO [address] [address] [facility] Start: 05-20-2024 End: 05-20-2024 Patient encounter procedure 05/20/2024 2:00 PM EST Office Visit [facility] [address] [place] [id number] [facility] Start: 05-04-2024 End: 05-04-2024 Clinical Support 05/04/2024 1:30 PM EST Clinical Support [facility] [address] [place] [address] Sheryl Cooper, [facility] [address] [place] [address] Arrived [facility] Comment on above: Arrived Start: 02-24-2024 Plain X-ray of right hip XR hi p RT min 2V(w/wo pelvis)* [facility] Start: 02-24-2024 XR Hip - right 2 Views [facility] Start: 01-21-2024 Plain X-ray of right hip XR hi p RT min 2V(w/wo pelvis)* [facility] Start: 01-21-2024 XR Hip - right 2 Views [facility] Start: 01-05-2024 [facility] Start: 01-05-2024 Hospital admission [facility] Start: 01-05-2024 Plain X-ray of right hip XR lo w pelvis w/RT x-table hip [facility] Start: 01-05-2024 XR Hip - right GE 2 Views [facility] Start: 01-05-2024 [facility] Start: 01-05-2024 Physical therapy procedure [facility] Start: 12-28-2023 Influenza vaccination Influenza Vacc ine (#1) [facility] Start: 12-22-2023 [facility] Start: 11-19-2023 MRSA Culture MRSA Culture [facility] Start: 11-19-2023 Methicillin resistan t Staphylococcus aureus [Presence] in Unspecified specimen by Organism specific culture [facility] Start: 11-19-2023 [facility] Start: 09-15-2023 Bacteria identified in Urine by Culture [facility] Start: 09-15-2023 [facility] Start: 06-13-2023 Plain X-ray of right hip XR hi p RT min 2V(w/wo pelvis)* [facility] Start: 06-13-2023 XR Hip - right 2 Views [facility] Start: 11-27-2021 DEXA SCAN DEXA SCAN [facility] Work Phone: Start: 05-23-2020 End: 05-23-2020 Office Visit 05/23/2020 Office Visit Orthopaedics Chito Land MD [address] [place] [address] [phone] [facility] Start: 05-02-2020 End: 05-02-2020 Office Visit 05/02/2020 Office Visit OrthopaedicChito Ragsdale MD [address] [place] [address] [facility] Start: 12-28-2019 Influenza vaccination INFLUENZA VACC INE (#1) [facility] Start: 12-28-2019 Influenza vaccinatio n given Sequential Influenza Vaccine (#1) [facility] Start: 10-07-2019 Pneumococcal vaccination [facility] Start: 10-07-2019 Pneumococcal Vaccine : 65+ Years (1 of 1 - PCV) Pneumococcal Vaccine: 65+ Years (1 of 1 - PCV) [facility] Start: 03-12-2019 Protein mass conc MAMMOGRAM SC REENING DISCUSSION [facility] Work Phone: Start: 03-12-2019 Screening mammography MAMMOGRA M SCREENING DISCUSSION [facility] Start: 05-11-2018 End: 05-11-2018 Ambulatory 05/11/2018 Office Visit Family Medicine Payton James MD [address] [place] [address] [phone] [facility] Start: 03-30-2018 End: 03-30-2018 Ambulatory [facility] Comment on above: Arrived Start: 12-27-2017 Influenza vaccination SEQUENTI AL INFLUENZA VACCINE (#1) [facility] Start: 12-05-2017 End: 12-05-2017 Ambulatory 12/05/2017 Office Visit Orthopedic Surgery Isidro Birch MD [address] [place] [address] [facility] Start: 11-07-2017 End: 11-07-2017 Ambulatory 11/07/2017 Office Visit [place] [address] [place] [address] [phone] [facility] Start: 04-29-2017 Protein mass conc MAMMOGRAM SC REENING DISCUSSION [facility] Work Phone: Start: 04-29-2017 Screening for malign ant neoplasm of cervix [facility] Work Phone: Start: 03-25-2017 Screening mammography Mammogram [facility] Start: 03-05-2017 History and physical examination, annual for health maintenance Wellness Visit [facility] Start: 01-25-2016 Colonoscopy COLORECTAL CAN CER SCREENING DISCUSSION [facility] Start: 01-25-2016 Protein mass conc COLON CANCER SCREENING DISCUSSION [facility] Start: 12-14-2015 Screening for malign ant neoplasm of colon [facility] Start: 2014 Zoster vaccine hzv l esteban for subcutaneous use ZOSTER VACCINE [facility] Start: 2004 Administration of he rpes zoster vaccine Zoster Vaccines (1 of 2) [facility] Start: 2004 Colonoscopy COLON CANCER S CREENING DISCUSSION [facility] Start: 2004 Pneumococcal Vaccine : 65+ Years (1 of 1 - PCV) Pneumococcal Vaccine: 65+ Years (1 of 1 - PCV) [facility] Start: 2004 Protein mass conc COLON CANCER SCREENING DISCUSSION [facility] Work Phone: Start: 2004 Screening for malign ant neoplasm of colon [facility] Start: 2004 Zoster vaccine hzv l esteban for subcutaneous use ZOSTER (SHINGLES) VACCINE (1 of 2) [facility] Start: 1994 Fasting lipid profile LIPID SCREENIN G [facility] Work Phone: Start: 1973 Third diphtheria, tetanus and acellular pertussis (DTaP) vaccination TDAP (ADULT) [facility] Work Phone: Start: 1972 Hepatitis C antibody , confirmatory test Hepatitis C Screening [facility] Start: 1972 Tetanus vaccination TETANUS [facility] Work Phone: Start: 1970 COVID-19 Vaccine (1 of 2) COVID-19 Vaccine (1 of 2) [facility] Start: 1969 HIV screening HIV Screening [facility] Start: 10-07-1967 HIV screening HIV SCREENING DISCUSSION [facility] Work Phone: Start: 1954 Fall risk assessment Falls Risk Asse ssment [facility] Start: 1954 Screening for malign ant neoplasm of colon [facility] Start: 1954 End: 1954 Hepatitis C antibody, confirmatory test HEPATITIS C VIRUS SCREENING [facility] Work Phone: Start: 1954 HEPATITIS C SCREENING HEPATITIS C SC GHISLAINE [facility] Start: 1954 Screening for malign ant neoplasm of cervix PAP SMEAR [facility] Auditory function tests Auditory function tests Audiology Routine 05/04/2024 1:36 PM [facility] [employer] Work Phone: Bacteria identified in Urine by Culture [facility] Comprehensive metabo lic 1999 panel - Serum or Plasma [facility] Comprehensive metabo lic 1999 panel - Serum or Plasma [facility] Comprehensive metabo lic 1999 panel - Serum or Plasma [facility] Cotinine [Mass/volum e] in Serum or Plasma [facility] DBT Breast - bilater al screening Bilateral screening mammogram with tomosynthesis Imaging Routine Other screening mammogram Ordered: 07/27/2024 [facility] [employer] Work Phone: Comment on above: Ordered: 07/27/2024 Glucose measurement estimated from glycated hemoglobin [facility] Hemoglobin [Mass/vol ume] in Blood [facility] End: 03-12-2018 MG Breast Views MAMMO SCREENING BILATERAL Routine Screening for breast cancer 1 Occurrences starting 03/12/2018 until 03/12/2018 [facility] Work Phone: Comment on above: 1 Occurrences starti ng 03/12/2018 until 03/12/2018 MG Breast Views MAMMO SCREENING BILATERAL Routine Screening for breast cancer 03/12/2018 1:05 PM EST [facility] Work Phone: Nicotine [Mass/volum e] in Serum or Plasma [facility] Patient Education Know your Meds [facility] Work Phone: End: 04-27-2020 Radiography of hip XR HIP WITH PELVIS RIGHT Imaging Routine Right hip pain 1 Occurrences starting 04/27/2020 until 04/27/2020 [facility] Comment on above: 1 Occurrences starti ng 04/27/2020 until 04/27/2020 Radiography of hip XR HIP WITH P JEFF RIGHT Imaging Routine Right hip pain 04/27/2020 9:13 AM EST [employer] [facility] Urine culture [facility] US Thyroid gland [facility] End: 10-08-2017 XR Wrist Right 3+ Views (Standard) XR Wrist Right 3+ Views (Standard) Routine Left wrist pain Once for 1 Occurrences starting 10/08/2017 until 10/08/2017 [facility] XR Wrist Right 3+ Vi ews (Standard) XR Wrist Right 3+ Views (Standard) Routine Left wrist pain 10/08/2017 2:17 PM EDT [facility] Immunizations Immunization Date Immunization Notes Care Provider Alexia tracey 01-29-2021 COVID-19 mRNA, Comirnaty (Pfizer) DO Karen Cardoso Work Phone: [facility] 07-18-2020 COVID-19 Vaccine Pfi zer - Documentation Purposes Only Karen Cardoso Other [facility] 06-26-2020 COVID-19 Vaccine Pfi zer - Documentation Purposes Only Karen Cardoso Other [facility] 03-03-2018 influenza virus vaccine, unspecified formulation [facility] 03-10-2017 diphtheria, tetanus toxoids and acellular pertussis vaccine, unspecified formulation Annmarie [facility] 03-10-2017 tetanus toxoid, redu jim diphtheria toxoid, and acellular pertussis vaccine, adsorbed [facility] 08-26-2013 tetanus toxoid, redu jim diphtheria toxoid, and acellular pertussis vaccine, adsorbed [facility] 01-26-2010 zoster vaccine, live DO Ronak Cardoso Work Phone: [facility] 02-19-1993 influenza virus vaccine, unspecified formulation Sheryl Cooper [facility] Work Phone: [facility] Payers Date Payer Category Payer Medicare (Managed Care) [facility] [employer] [employer] [id number] 2017 Medicare MEDICARE ANTHEM HMO OR PPO MEDICARE ANTHEM HMO OR PPO xxxxxxxxxxxx 2017-Present xxxxxxxxxxxx [id number] 2017 Medicare [id number]. [id number] 2015 Medicare [id number] 1959 Medicare [id number] 1959 Self-pay [id number] 1954 Unknown [id number] 2.840.1.649192.3.579.2. 983 1954 Unknown [id number] 2.16.840.1.264597.3.579.2. 903 1954 Unknown [id number] 2..840.1.954011.3.579.2. 593 1954 Unknown [id number] 2.16.840.1.641155.3.579.2. 593 1954 Unknown [id number] 2.16840.1.960050.3.579.2. 593 1954 Unknown [id number] 2.16.840.1.162521.3.579.2. 1259 1954 Unknown [id number] 2.16.840.1.883753.3.579.2. 1259 1954 Unknown [id number] 2.16.840.1.572419.3.579.2. 1259 1954 Unknown [id number] 2.16840.1.413359.3.579.2. 1259 1954 Unknown [id number] 2.16.840.1.893863.3.579.2. 1259 1954 Unknown [id number] 2.16.840.1.757361.3.579.2. 1259 Unknown [facility] [id number] Unknown [id number] 2.16.840.1.130901.3.579.2. 593 Unknown [id number] 2.16.840.1.359391.3.579.2. 593 Unknown [id number] 2.16.840.1.545039.3.579.2. 593 Unknown [id number] 2.16840.1.208066.3.579.2. 531 Unknown [id number] 2.840.1.663952.3.579.2. 531 Unknown [id number] 2.16840.1.001695.3.579.2. 531 Unknown [id number] 2.16.840.1.640836.3.579.2. 531 Unknown [id number] 2.16.840.1.045305.3.579.2. 531 Unknown [id number] 2.840.1.090430.3.579.2. 531 Unknown [id number] 2.840.1.436511.3.579.2. 531 Unknown [id number] 2.840.1.317605.3.579.2. 531 Unknown [id number] 2.840.1.942919.3.579.2. 531 Unknown [id number] 2.840.1.771738.3.579.2. 531 Social History Date Type Detail Facility Start: 10-08-2017 End: 01-05-2024 Tobacco smoking status MDIS Never smoker [facility] Start: 1955 Sex Assigned At Not on file [facility] Start: 03-03-2018 Alcohol Comment 2 beers a week [facility] Start: 04-27-2020 End: 06-23-2023 Tobacco use and exposure Never used [facility] Start: 12-05-2017 End: 04-27-2020 Alcohol intake Current drinker of alcohol (finding) [facility] Start: 09-25-2016 Alcohol Comment [facility] Start: 09-09-2023 End: 09-14-2024 Sex Assigned At [employer] Other Start: 1955 Sex Assigned At Female [facility] Start: 09-09-2023 End: 09-14-2024 Alcoholic beverage intake Ex-drinker (finding) [facility] Start: 09-09-2023 End: 09-14-2024 History of Social function [facility] Start: 06-23-2023 Alcohol Comment caffeine intak e: 1-2 cups per day [facility] Start: 06-16-2024 End: 10-02-2024 Sex Female (finding) [facility] NEGATED: Highlighted row [facility] Medical Equipment Procedure Code Equipment Code Equipment Origin al Text Equipment Identifier Dates Arthroplasty, hip, total, anterior approach Acetabular shell [id number] FDA Start: 01-05-2024 Arthroplasty, hip, total, anterior approach Orthopaedic bone screw, non-bioabsorbable, sterile ()[id number] FDA Start: 01-05-2024 Arthroplasty, hip, total, anterior approach Orthopaedic bone screw, non-bioabsorbable, sterile ()[id number] FDA Start: 01-05-2024 Arthroplasty, hip, total, anterior approach Orthopaedic bone screw, non-bioabsorbable, sterile ()[id number] FDA Start: 01-05-2024 Arthroplasty, hip, total, anterior approach Ceramic femoral head prosthesis ()[id number] FDA Start: 01-05-2024 Arthroplasty, hip, total, anterior approach Coated hip femur prosthesis, modular ()[id number] FDA Start: 01-05-2024 Arthroplasty, hip, total, anterior approach Non-constrained polyethylene acetabular liner ()[id number] FDA Start: 01-05-2024 Goals Date Patient Goal Desired Activity /State Clinical Notes 06-11-2021 to 10-01-2024 Angela Linda MD - 09/14/2024 10:35 AM EDT Note Date & Type Note Facility 10-01-2024 Nuclear medicine Diagnostic study note [place] [address] Nuclear Medicine Report Signed Patient: Antonino Torres MR#: [id number] : 1955 Acct:[id number] Age/Sex: 68 / F ADM Date: 5 Loc: [place] Room: Type: [facility] Attending Dr: Lay Alvarez MD Copies to: Lay Alvarez MD~ Ordering Provider: Lay Alvarez MD Date of Service: 10/01/24 NM/NM whitley perf SPECT rest & str: R07.9 NUCLEAR MYOCARDIAL PERFUSION DATE OF PROCEDURE: 10/01/2024 PROCEDURE: The patient achieved a workload of 10.1 METs. During the last one minute of exercise, the patient was then injected with 19.2 millicuries of Technetium 99M Sestamibi one minute before the end of the exercise. For rest images the patient was injected with 6.6 millicuries of Technetium 99M Sestamibi. FINDINGS: The raw cine images were reviewed. The post stress and rest perfusion images were reviewed as well as the computer quantification.? There was uniform uptake of the radiotracer with no perfusion defects identified.? On the gated portion of the study, there was uniform thickening with an overall ejection fraction calculated at 69%.? TID score was within normal limits. CONCLUSION: 1. Gated spect Sestamibi study is within normal limits. 2. Left ventricular function was preserved. Impression dictated by: Lay Alvarez M.D. 10/01/2024 4:24 PM Dictation Location: [id number] Transcribed By: SAGAR 10/01/24 1624 Dictated By: Lay Alvarez MD 10/01/24 1623 Signed By: 10/01/24 1624 [facility] Work Phone: 09-14-2024 History of Present illness Narrative Skin Check Location: Patient requests a skin examination from the waist up Dermatologic history: no history of skin cancer, no history of atypical moles Last visit: 2021 Established patient Lesions: Location: right forearm Duration: 1 week Quality: denies pain, denies itch, denies bleeding Associated symptoms: denies trauma to area, denies insect bite Treatments: none Lesion # 2: Location: shoulders/upper back Duration: few months Quality: itchy, denies pain, denies bleeding Associated symptoms: no rash present Treatments: none All pertinent medical history, medications, and allergies were reviewed. General Exam: alert, oriented to person, place, and time, normal affect, well appearing Unaccompanied A complete skin exam was offered, pt declined. Areas not examined despite medical recommendation: From the waist down Scalp, Examined Head, Face Examined Neck Examined Chest Examined Back Examined Abdomen Examined Right arm Examined Left arm Examined Hands Examined Digits,nails: Examined Lymphatics: Not examined Skin Exam 1. MELANOCYTIC NEVUS OF TRUNK Right Upper Back Scattered benign appearing, regular brown to light brown melanocytic papules and macules with similar morphology Counseled regarding these benign growths. Rarely, a nevus can develop into malignant melanoma, so any changing nevi should be promptly re-evaluated. 2. LENTIGINES Head - Anterior (Face) Scattered luis macules in sun-exposed areas. The patient was informed that lentigines are benign pigmented lesions that occur on sun-exposed and sun-damaged skin. No treatment is necessary. Recommended regular use of broad spectrum sunscreen SPF 30 or higher 3. INFLAMMATORY PAPULE Right Forearm - Anterior [place] papule Favoring benign lesion. Will give lesion 3-4 weeks to resolve. Patient instructed to call in 3-4 weeks if lesion has not resolved for a biopsy. 4. NOTALGIA PARESTHETICA Left Upper Back Skin appears normal in areas of itching. The patient was informed that notalgia paresthetica is a chronic itching, burning, or tingling sensation in the areas of skin just below the shoulder blade on either side of the back. The affected skin may appear normal or show changes from chronic scratching. It was explained that this is caused by nerve changes or damage in the local nerves, usually from arthritis or minor injury. The patient was informed that treatment is difficult and often ineffective. Treatment options were discussed including cooling lotions/icing the area. Next Visit: 1 year documented in this encounter [facility] 08-26-2024 Evaluation note Diagnosis Onset Date Resolution Atypical chest pain acute August 262024 1:01pm Bipolar depression acute August 1:01pm Hyperglycemia acute August 26 1:01pm Hyperlipidemia acute August 26 025 1:01pm Osteoporosis without current pathological fracture acute August 26, 2024 1: 01pm [facility] Work Phone: 1(453) 211-220402-19-2025 Evaluation note* Diagnosis Onset Date Resolution Status Admit Date Bipolar depression acute 2024 9:06am Fatigue acute June 16, 2024 9:06am Hyperglycemia acute June 162024 9:06am Hyperlipidemia acute May 292024 9:06am Status post right hip replacement acute June 16, 2 025 9:06am Thyroid nodule acute May 292024 9:06am Bipolar depression acute August 1:01pm Hyperglycemia acute August 26 1:01pm Hyperlipidemia acute August 26 2 025 1:01pm Osteoporosis without current pathological fracture acute August 26 2 025 1:01pm [facility] Work Phone: 1(492) 196-950802-19-2025 Evaluation note* Diagnosis Onset Date Resolution Status Admit Date Bipolar depression acute 2024 9:06am Fatigue acute June 16, 2024 9:06am Hyperglycemia acute June 162024 9:06am Hyperlipidemia acute May 292024 9:06am Status post right hip replacement acute June 16, 2 025 9:06am Thyroid nodule acute May 292024 9:06am Atypical chest pain acute August 262024 1:01pm Bipolar depression acute August 1:01pm Hyperglycemia acute August 26 1:01pm Hyperlipidemia acute August 26, 1:01pm Osteoporosis without current pathological fracture acute August 26, 1:01pm [facility] Work Phone: 1(874) 945-695901-23-2025 History of Present illness Narrative* Sharon Zhou MA - 05/20/2024 2:00 PM EST Patient was in today to be fit with [employer] 512 T KITTY LI hearing aids which she obtained using her HCS benefit. Patient aids were coupled to 1S receivers with 10 mm open domes. Patient is an experienced hearing aid wearer but recently lost one of her hearing aids. She is familiar with the cafe aide and maintenance. She was happy with sound settings and requested no changes. Patient does not use a phone with her aids. We reviewed use of the volume control on the hearing aid. Patient prefers to call as needed for follow ups. Cosigned by OZZIE Rivas at 05/20/2024 2:58 PM EST documented in this encounterMin[facility] [id number] History of Present illness Narrative* OZZIE Rivas - 05/04/2024 1:30 PM EST History: Pt has history of bilateral hearing [...] not arrive in time. documented in this encounterMineral Area [facility] Medical [id number] Evaluation note* Diagnosis Onset Date Resolution Status Admit Date Aftercare following right hi p joint replacement surgery acute Decemb er 2023 9:11am Status post right hip replacement acute April 07, 2 024 9:11am Bipolar depression acute Februa 2024 9:06am Fatigue acute June 16, 2024 9:06am Hyperglycemia acute June 162024 9:06am Hyperlipidemia acute May 292024 9:06am Status post right hip replacement acute June 16 2 025 9:06am Thyroid nodule acute May 292024 9:06am [facility] Work Phone: 1(284) 600-856308-16-2024 Evaluation note* Author Karen Cardoso [facility] Authored December 12, 2023 10 :00am The above note written by __ _Lina Bay____ acting as human recorder, note dictated by Dr. Armijo .I performed the above HPI, ROS, and Examination. I formulated and dictated the treatment plan and was present for entire encounter. Karen Cardoso D.O. [facility] Work Phone: 1(300) 966-181005-20-2024 Evaluation note* Author Karen Cardoso [facility] Authored September 15, 2023 2:26p m The above note written by __ _Lina Bay____ acting as human recorder, note dictated by Dr. Armijo .I performed the above HPI, ROS, and Examination. I formulated and dictated the treatment plan and was present for entire encounter. Karen Cardoso D.O. [facility] Work Phone: 1(385) 180-514802-29-2024 Evaluation note* Author Karen [facility] Authored June 26, 2023 10:58am The above note written by __ _Lina Bay____ acting as human recorder, note dictated by Dr. Armijo .I performed the above HPI, ROS, and Examination. I formulated and dictated the treatment plan and was present for entire encounter. Karen Cardoso D.O. [facility] Work Phone: 1(378) 880-727902-29-2024 Evaluation note* Author Karen [facility] Authored June 26, 2023 10:58am The above note written by __ _Lina Bay____ acting as human recorder, note dictated by Dr. Armijo .I performed the above HPI, ROS, and Examination. I formulated and dictated the treatment plan and was present for entire encounter. Karen Cardoso D.O. Author Karen [facility] Authored September 15, 2023 2:26p m The above note written by __ _Lina Bay____ acting as human recorder, note dictated by Dr. Armijo .I performed the above HPI, ROS, and Examination. I formulated and dictated the treatment plan and was present for entire encounter. Karen Cardoso D.O. [facility] Work Phone: 1(663) 254-483901-17-2024 Evaluation note* Encounter Date Diagnosis Assessment Notes [...] oral anti-inflammatorie s and Tylenol. Recommended utilizing [id number] oral anti-inflammatorie s. Recommended adjusting their Tylenol [...] injection well. 5. Follow up as needed [employer] Other 09-14-2023 Evaluation note* Encounter Date Diagnosis Assessment Notes Treatment Notes Treatment Clinical Notes Dec, Bipolar depression (ICD-10 - F31.9) [employer] Other 08-18-2023 Evaluation note* Encounter Date Diagnosis Assessment Notes Treatment Notes Treatment Clinical Notes Nov, Bipolar depression (ICD-10 - F31.9) Nov, Hyperlipidemia (ICD-10 - E78.5) [employer] Other 08-17-2023 Evaluation note* Encounter Date Diagnosis [...] that she was seeing a lady at [facility] but has not seen her in [...] loss (ICD-10 - R63.4) Nov, Other intermediate accountant (current) drug therapy (ICD-10 - Z79.899) [employer] Other 03-17-2023 Evaluation note* Encounter Date Diagnosis [...] consider looking at her hip joint further. [employer] Other 02-16-2023 Evaluation note* Encounter Date Diagnosis [...] hip She would like to see an erosion control specialist for her right hip. She had [...] her white blood cell count. May, Other detention (current) drug therapy (ICD-10 - Z79.899) May, Bipolar depression (ICD-10 - F31.9) Continue with specialist as directed. May, Other I did provide h er with a lab order today to have labs drawn prior to her appointment in November (2022). If she decides to have outreach lab drawn through the [facility] she should call and we will give her an order for just an AST/ALT. We discussed how much Calcium she should be taking, I did recommend she take 5867-3967 daily. Recommend Calcium Citrate. [employer] Other 11-09-2022 Evaluation note* Encounter Date Diagnosis Assessment Notes Treatment Notes Treatment Clinical Notes Feb, Hyperlipidemia (ICD-10 - E78.5) [employer] Other 10-18-2022 Evaluation note* Encounter Date Diagnosis [...] white blood cell count was 14.3 in November) and is now down to 11.4. This [...] then we would refer her to a early childhood coordinator. 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 [employer] Other 02-14-2022 NoteHISTORY: Bone density screening. COMPARISON: [...] and signed by Trell Martin on 06/11/2021 1237[facility] [place] [facility] SpecialistChief complaint+Reason for visit Narrative* Chief Complaint 2 MONTHS WANTS TO DI SCUSS SURGERY m16.11 z79.897 m81.0 review labs/medical clearance Hip pain Reason for Visit Primary osteoarthrit is of right hip Bipolar depression Encounter for pre-operative examination Hyperglycemia Hyperlipidemia Primary osteoarthritis of right hip Weight loss [facility] Work Phone: Chief complaint+Reason for [...] right hip [facility] Work Phone: Chidq complaint+Reason for visit Narrative* Chief Complaint 2 MONTHS WANTS TO DI SCUSS SURGERY m16.11 z60.893 m81.0 review labs/medical clearance Hip pain Preop - R JASON H&P RTHA Prolonged Reason for Visit Primary osteoarthrit is of right hip Bipolar depression Encounter for pre-operative examination Hyperglycemia Hyperlipidemia Primary osteoarthritis of right hip Weight loss Primary osteoarthritis of right hip [facility] Work Phone: Chicm complaint+Reason for visit Narrative* Chief Complaint 2 MONTHS WANTS TO DI SCUSS SURGERY m16.11 z79.897 m81.0 review labs/medical clearance Hip pain Preop [...] replacement surgery Status post right hip replacement [facility] Work Phone: Chief complaint+Reason for visit [...] replacement surgery Status post right hip replacement [facility] Work Phone: Evaluation noteNo InformationNort [employer] Other Evaluation noteNo assessment information available [facility] Work Phone: Evaluation note* Diagnosis Onset Date Resolution Status Greater trochanteric bursitis of right hip acute Primary osteoarthritis of right hip acute [facility] Work Phone: Evaluation note* Diagnosis Sensorineural hearing loss, bilateral- Primary [facility] Diagnosis Sensorineural hearing loss, bilateral- Primary [facility] this encounter [facility]* Diagnosis Encounter for gynecological examination (general) (routine) with abnormal findings- Primary Cystocele, midline Other screening mammogram Hx of hysterectomy for benign disease Hx of BSO (bilateral salpingo-oophorectomy) documented [facility]* Diagnosis Melanocytic nevus of trunk- Primary Benign neoplasm of skin of trunk, except scrotum Lentigines Inflammatory papule Notalgia paresthetica Disturbance of skin sensation documented in this encounter [facility] Healthcare[facility] [...] Dr. Wu 02/23/2020 Hospitalization History see above [employer] Other History general Narrative - Reported* Type [...] repeat in 202902/23/2020 Hospitalization History see above [employer] Other History of Present illness Narrative* Nicole Hawkins DO - 07/27/2024 11:15 AM EDT Images from the original note were not included. Nicole Hawkins DO Obstetrics and Gynecology Name: Antonino Torres Date/Time of Service:07/27/2024 10:24 AM :1955 Age: 68 y.o. Subjective Antonino Torres is a 68 y.o. female who is here for a routine exam. Gynecologic Exam (Patient here for yearly. Denies any problems at this time. [facility] Up to date on Dexa. Colonoscopy in 2016) Control Contraception: status post hysterectomy. LMP: No LMP recorded. Patient has had a hysterectomy. Last Mammogram Results for orders placed in visit on 07/24/23 Bilateral screening mammogram with tomosynthesis Narrative EXAMINATION: BI MAMMOGRAM SCREENING TOMOSYNTHESIS BILATERAL CLINICAL HISTORY:screening COMPARISON: June 07, 2020. RESULT: Digital mammography and 3D tomosynthesis of bilateral breasts was performed. Density: Almost entirely fatty [1] Overall appearance is stable. Typically benign calcifications. There is no suspicious mass, asymmetry, architectural distortion, or calcification Impression BIRADS 2 - Benign Follow-up: Routine Screening Mamm Board Certified Radiologists. Accredited by the ACR and FDA. MAMMOGRAPHY IS VERY IMPORTANT TO YOUR HEALTH. THE [employer] GUIDELINES RECOMMEND THATWOMEN 40 YEARS OF AGE AND OLDER SHOULD HAVE A MAMMOGRAM EVERY YEAR. A REMINDER LETTER WILL BE SENT AT THE APPROPRIATE TIME. THIS FACILITY UTILIZES A REMINDER SYSTEM TOENSURE ALL PATIENTS RECEIVE REMINDER NOTIFICATIONS AT THE [...] BY: ELECTRONICALLY SIGNED BY: Isidro Rod MD Current Outpatient Medications on File Prior to Visit Medication Sig Dispense Refill busPIRone (Buspar) 5 MG tablet Take 5 mg by mouth in the morning and 5 mg in the evening and 5 mg before bedtime. ascorbic acid (Vitamin C) 500 MG tablet Take 500 mg by mouth CALCIUM PO Take by mouth Daily desvenlafaxine (Pristiq) 50 MG 24 hr tablet Take 50 mg by mouth Daily Do not crush, chew, or split. metroNIDAZOLE (MetroLotion) 0.75 % lotion lotion Apply 1 application topically 1 (one) time each day at the same time Multiple Vitamins-Minerals (Oncovite) tablet Take 1 tablet by mouth in the morning. simvastatin (Zocor) 20 MG tablet Take 20 mg by mouth at bedtime [DISCONTINUED] cyclobenzaprine (Flexeril) 10 MG tablet Take 5-10 mg by mouth at bedtime [DISCONTINUED] HYDROcodone-acetaminophen ([place]) 5-325 MG tablet Take 1 tablet by mouth every 6 (six) hours if needed [DISCONTINUED] lamoTRIgine (LaMICtal) 100 MG tablet Take 100 mg by mouth Daily [DISCONTINUED] lamoTRIgine (LaMICtal) 25 MG tablet Take 25 mg by mouth at bedtime [DISCONTINUED] LORazepam (Ativan) 0.5 MG tablet Take 0.5 mg by mouth Daily as needed for anxiety [DISCONTINUED] meloxicam (Mobic) 15 MG tablet Take 15 mg by mouth Daily [DISCONTINUED] minocycline 100 MG capsule Take 1 capsule by mouth every 12 (twelve) hours [DISCONTINUED] tiZANidine (Zanaflex) 4 MG tablet Take 2-4 mg by mouth at bedtime [DISCONTINUED] venlafaxine (Effexor) 37.5 MG tablet Take 37.5 mg by mouth 1 (one) time each day at the same time No current facility-administered medications on file prior to visit. Past Medical History: Diagnosis Date Anxiety Closed fracture of right distal radius 10/09/2017 Depression ([facility]/HCC) History of hysterectomy for benign disease 06/23/2023 HLD (hyperlipidemia) ([facility]) Vaginal dryness 06/23/2023 Past Surgical History: Procedure Laterality Date BREAST SURGERY breast reduction CARPAL TUNNEL RELEASE x3 CHOLECYSTECTOMY COLONOSCOPY 2016 [place] GUIDED ASPIRATION OR INJECTION LARGE JOINT BILATERAL Bilateral 11/27/2021 FL GUIDED ASPIRATION OR INJECTION LARGE JOINT BILATERAL FL GUIDED ASPIRATION OR INJECTION LARGE JOINT BILATERAL Bilateral 05/02/2020 FL GUIDED ASPIRATION OR INJECTION LARGE JOINT BILATERAL OTHER SURGICAL HISTORY arm reduction TOTAL ABDOMINAL HYSTERECTOMY W/ BILATERAL SALPINGOOPHORECTOMY 1986 TOTAL HIP ARTHROPLASTY TUBAL LIGATION Family History Problem Relation Name Age of Onset Cancer Mother lung Alzheimer's disease Father Diabetes Sister Cancer Sister breast Breast cancer Sister not genetic Social History Tobacco Use Smoking status: Never Smokeless tobacco: Never Substance Use Topics Alcohol use: Not Currently Comment: caffeine intake: 1-2 cups per day Drug use: Never OB History Para Term AB Living 1 1 SAB IAB Ectopic Multiple Live Births # Outcome Date GA Lbr Gautam/2nd Weight Sex Type Anes PTL Lv 1 Para Vag-Spont Allergies Allergen Reactions Oxycodone-Acetaminophen Itching Jumpy legs, hyper Duloxetine Other Reaction(s): headaches Fluoxetine Other Reaction(s): doesn't work Review of Systems Constitutional: Negative. Respiratory: Negative. Cardiovascular: Negative. Gastrointestinal: Negative. Musculoskeletal: Negative. Skin: Negative. Neurological: Negative. Endocrine: Negative. Objective BP 118/80 Wt 155 lb BMI 25.79 kg/m Body mass index is 25.79 kg/m . Physical Exam Genitourinary: Urethral meatus normal. No lesions in the vagina. Genitourinary Comments: Valsalva revealed stage I-II cystocele Right Labia: No lesions. Left Labia: No lesions. Vaginal cuff intact. No vaginal discharge. Anterior vaginal prolapse present. Moderate vaginal atrophy present. Right Adnexa: not tender and no mass present. Left Adnexa: not tender and no mass present. Cervix is absent. Uterus is absent. Urethral stress urinary incontinence with cough stress test present. Bladder is not tender. Rectum: No rectovaginal septum nodularity. Breasts: Right: No mass, nipple discharge, skin change or tenderness. Left: No mass, nipple discharge, skin change or tenderness. HENT: Head: Normocephalic and atraumatic. Mouth/Throat: Mouth: Mucous membranes are moist. Cardiovascular: Rate and Rhythm: Normal rate and regular rhythm. Pulmonary: Effort: Pulmonary effort is normal. Breath sounds: Normal breath sounds. Abdominal: General: Bowel sounds are normal. Palpations: Abdomen is soft. Musculoskeletal: General: No tenderness. Cervical back: Neck supple. Neurological: Mental Status: She is alert and oriented to person, place, and time. Skin: General: Skin is warm and dry. Psychiatric: Mood and Affect: Mood normal. Vitals and nursing note reviewed. Assessment/Plan 1. Encounter for gynecological examination (general) (routine) with abnormal findings (Primary) Breast and pelvic exam performed. Discussed findings. Patient to contact the office with any changes to her gynecological condition. 2. Cystocele, midline Discussed findings, stable, continue to observe. Stressed the importance of complete bladder emptying and avoiding long periods between voiding. Patient voiced understanding 3. Other screening mammogram Mammogram order sent. Patient to schedule appointment - Bilateral screening mammogram with tomosynthesis 4. Hx of hysterectomy for benign disease 5. Hx of BSO (bilateral salpingo-oophorectomy) ICD-10-CM 1. Encounter for gynecological examination (general) (routine) with abnormal findings Z01.411 2. Cystocele, midline N81.11 3. Other screening mammogram Z12.31 Bilateral screening mammogram with tomosynthesis 4. Hx of hysterectomy for benign disease Z90.710 5. Hx of BSO (bilateral salpingo-oophorectomy) Z90.79 Z90.722 Follow up in about 1 year (around 07/27/2025) for Yearly. Nicole Hawkins DO 07/27/2024 10:24 AM documented in this encounter[facility] Assessments Diagnosis Left wrist pain Pain in [...] Relationship Condition Age at Onset Recorded Date/T courntey father Family history of mental disorder Unknown [...] 023 8:39am Instructions * Patient Instructions - aPyton James MD - 03/30/2018 1:36 PM EST [...] Additions if any: Chito Land MD, CA[facility] Radio Aerial Installer - [facility] * Rachna Hunter - [...] from the last injection. Chito Land MD, [facility] Radio Aerial Installer - [facility] * Corinne Shaffer - [...] findings. Additions if any: Chito Land MD, [facility] Orthopedics and Sports Medicine Radio Aerial Installer - [facility] * Corinne Shaffer - [...] and any other severely limiting injury. * RossanaDarius villanuevaed - 04/27/2020 8:40 AM EST Referred by: [...] MAMMO SCREENING BILATERAL Payton James MD [address] [place] [address] Reason appt 07/12/22 at 10am pt needs consult to discuss right hip pain Diagnosis 1 Hip pain (M25.559) Referral Organization [facility] [place] Referring Provider First Name Karen Referring Provider Last Name Walker Referring Provider Specialty Family Prac ernie Referred Organization [facility] Referred Provider Finn Ortez II Referred Address [address] [place],[address] Referred Provider Specialty Orthopedic S urgery Referral [...] 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) Referral Organization [facility] trev Sosa Referring Provider First Name Karen Referring Provider Last Name Walker Referring Provider Specialty Family Prac ernie Referred Organization [facility] Referred Address [address],[place] [place], [place],[address] Referred Provider Specialty Neurology Referral Priority Routine [...] 1 Decreased hearing (H 91.90) Referral Organization [facility] Aly Sosa Referring Provider First Name Karen Referring Provider Last Name Walker Referring Provider Specialty [facility] ernie Referred Organization [facility] Referred Address ,[place], [place],[address] Referred Provider Specialty Audiologists Referral Priority Routine General Notes Sheryl Engle 04/15/2023 10:18:38 AM > referral faxed to [facility] in Dr Arshad' office. pt and understand they will be contacted to schedule this appt. will not receive audiology report, so referral will be closed once appt is confirmed. Chief Complaint and Reason for Visit Chief Complaint Op Sp Rt Hip Pain Nx OP [...] months 2 MONTHS WANTS TO DISCUSS SURGERY Reason [...] of right hip Weight loss Chief Complaint Admit Date Z96.641 - Presence of right artificial h ip joint April 07, 2024 9:01am 6 WEEKS April 07, 2024 9:11am May 18, 2024 1 0:23am review labs June 16, 2024 9:06am Reason for Visit Admit Date Aftercare following right hip joint repl acement surgery April 07, 2024 9:11am Status post right hip replacement Dece er 2023 9:11am Bipolar depression June 16, 2024 9:06am Fatigue June 16, 2024 9:06am Hyperglycemia June 16, 2024 9:06am Hyperlipidemia June 16, 2024 9:06am Status post right hip replacement Februa 2024 9:06am Thyroid nodule June 16, 2024 9:06am Chief Complaint Admit Date review labs June 16, 2024 9:06am July 27, 2024 8:43 am Chest pain, unspecified August 26, 2024 1: 01pm Reason for Visit Admit Date Bipolar depression June 16, 2024 9:06am Fatigue June 16, 2024 9:06am Hyperglycemia June 16, 2024 9:06am Hyperlipidemia June 16, 2024 9:06am Status post right hip replacement Februa 5 9:06am Thyroid nodule June 16, 2024 9:06am Bipolar depression August 26, 2024 1:01pm Hyperglycemia August 26, 2024 1:01pm Hyperlipidemia August 26, 2024 1:01pm Osteoporosis without current pathologica l fracture August 26, 2024 1:01pm Reason for Visit Admit Date Bipolar depression June 16, 2024 9:06am Fatigue June 16, 2024 9:06am Hyperglycemia June 16, 2024 9:06am Hyperlipidemia June 16, 2024 9:06am Status post right hip replacement 2024 9:06am Thyroid nodule June 16, 2024 9:06am Atypical chest pain August 26, 2024 1:01pm Bipolar depression August 26, 2024 1:01pm Hyperglycemia August 26, 2024 1:01pm Hyperlipidemia August 26, 2024 1:01pm Osteoporosis without current pathologica l fracture August 26, 2024 1:01pm Chief Complaint Admit Date July 27, 2024 8:43 am Chest pain, unspecified August 26, 2024 1: 01pm R07.9 August 26, 2024 1:04pm R07.9 October 01, 2024 8:53a m R07.9 October 01, 2024 3:47p m Reason for Visit Admit Date Atypical chest pain August 26, 2024 1:01pm Bipolar depression August 26, 2024 1:01pm Hyperglycemia August 26, 2024 1:01pm Hyperlipidemia August 26, 2024 1:01pm Osteoporosis without current pathologica l fracture August 26, 2024 1:01pm Additional Source Comments INFORMATION SOURCE (unrecogn ized section and content) DATE CREATED AUTHOR 10/20/2017 [facility] DATE CREATED AUTHOR AUTHOR'S ORGANIZ ATION 10/24/2017 [facility] DATE CREATED AUTHOR AUTHOR'S ORGANIZ ATION 11/12/2017 [facility] DATE CREATED AUTHOR AUTHOR'S ORGANIZ ATION 11/12/2017 [facility] DATE CREATED AUTHOR AUTHOR'S ORGANIZ ATION 12/20/2017 [facility] DATE CREATED AUTHOR AUTHOR'S ORGANIZ ATION 04/06/2018 [facility] DATE CREATED AUTHOR AUTHOR'S ORGANIZ ATION 07/30/2018 [facility] DATE CREATED AUTHOR AUTHOR'S ORGANIZ ATION 02/10/2021 [facility] DATE CREATED AUTHOR AUTHOR'S ORGANIZ ATION 06/11/2021 [facility] DATE CREATED AUTHOR AUTHOR'S ORGANIZ ATION 08/28/2022 [facility] [place] [facility] DATE CREATED AUTHOR AUTHOR'S ORGANIZ ATION 09/15/2024 [facility] EPIC DATE CREATED AUTHOR AUTHOR'S ORGANIZ ATION 11/05/2024 [facility] Reason for Visit (unrecogniz ed section and content) Reason Comments Medication Management Reason Comments Medication Refill Reason Comments Prescription Clarification Status Reason Specialty Diagnoses / Procedures Referre d By Contact Referred To Contact Closed Diagnoses Screening for breast cancer Procedures MAMMO SCREENING BILATERAL Payton James MD [address] [place] [id number] Reason Comments Depression Antonino feels pretty g ood. Holidays didn't affect her too much. Overall she feels pretty level. Reason Comments Joint Injection Reason Comments Pain Follow-up Reason Comments Ear Pain Reason Comments Pain Right hip pain Reason Comments Gynecologic Exam Patient here for yea rly. Denies any problems at this time. Mammogram order sent to [facility] imaging. Up to date on Dexa. Colonoscopy in 2016 Reason Comments Skin Check Care Teams (unrecognized sec tion and content) Team Status: Active Member Role Status Dates Karen Cardoso DO Primary Care Provider Active Team Status: Active Member Role Status Dates Karen Cardoso DO Primary Care Provide r, Attending Provider Active Start: June 11, 2024 Team Status: Inactive Member Role Status Dates Karen Cardoso DO Primary Care Provide r, Attending Provider Active Start: June 16, 2024 End: June 16, 2024 Team Status: Active Member Role Status Dates Karen Cardoso DO Primary Care Provider Active S tart: July 27, 2024 Floyd Hampton MD Attending Provider Active Start: July 27, 2024 Team Status: Inactive Member Role Status Dates Karen Cardoso DO Primary Care Provider Active S tart: August 26, 2024 End: August 26, 2024 Lay Alvarez MD Attending Provider Active Sta rt: August 26, 2024 End: August 26, 2024 Team Status: Active Member Role Status Dates Karen Girvin DO Primary Care Provider Active S tart: August 26, 2024 Lay Alvarez MD Attending Provider Active Sta rt: August 26, 2024 Team Status: Inactive Member Role Status Almita Cardoso DO Primary Care Provider Active S tart: April 07, 2024 End: April 07, 2024 Finn Ortez II, MD Attending Provider Active Start: April 07, 2024 End: April 07, 2024 Team Status: Active Member Role Status Almita Jones Walker DO Primary Care Provider Active S tart: May 18, 2024 Floyd Hampton MD Attending Provider Active Start: May 18, 2024 Team Status: Active Member Role Status Almita Karen Cardoso DO Primary Care Provide r, Attending Provider Active Start: December 06, 2023 Team Status: Inactive Member Role Status Almita Karen Cardoso DO Primary Care Provide r, Attending Provider Active Start: December 12, 2023 End: December 12, 2023 Team Status: Active Member Role Status Almita Serranosrinivas DO Primary Care Provide r, Attending Provider [...] Attending Provider Active Start: January 21, 2024 Fire Boss Relationship Specialty Start Date End Date Karen Cardoso MD [address] [place] [address] PCP - General Family Medicine 04/15/23 Fire Boss Relationship Specialty Start Date End Date Karen Cardoso MD [address] [place] [address] PCP - General Family Medicine 04/15/23 Fire Boss Relationship Specialty Start Date End Date Karen Cardoso MD [address] [place] [address] PCP - General Family Medicine 04/15/23 Fire Boss Relationship Specialty Start Date End Date Karen Cardoso MD [address] [place] [address] PCP - General Family Medicine 04/15/23 Fire Boss Relationship Specialty Start Date End Date Karen Cardoso MD [address] [place] [address] [place] [address] PCP - General Family Medicine 04/15/23 Fire Boss Relationship Specialty Start Date End Date Karen Cardoso MD [address] [place] [address] [place] [address] PCP - General Family Medicine 04/15/23 Team Status: Inactive Member Role Status Dates Karen Cardoso DO Primary Care Provider Active S tart: October 01, 2024 End: October 01, 2024 Lay Alvarez MD Attending Provider, Referring Provider Active Start: October 01, 2024 End: October 01, 2024 Team Status: Active Member Role Status Dates Karen Cardoso DO Primary Care Provider Active S tart: October 01, 2024 Lay Alvarez MD Attending Provider, Referring Provider, Other Provider Active Start: October 01, 2024 Goals (unrecognized section and content) Goals [...] BE BASED ON THE PRIMARY CLINICAL RECORDS. [employer] [facility]. provides no warranty or guarantee of the accuracy or completeness of information in this document.
== END 2024-11-30 07:56 | disposition home or self-care (01) ==
LOC: US 07:55
PROVIDERS: PCP Family Medicine; Visit Provider Family Medicine
DX: E04.1 Nontoxic single thyroid nodule (principal)
CPT/HCPCS: 76536

== ENCOUNTER 2024-12-16 09:42 | Outpatient (OUT) | payer MEDICARE, SELFPAY ==
--- OUTSIDE RECORDS SUMMARY | 2024-12-16 09:46 | XMS_ITS | Clinical Summary ---
Author Organization [facility] Healthcare Address [address] [place] [address] Care Team Providers Care Rainbow Trout Farm Manager Name Role Phone Casa Riddle MD Primary Care Provider Allergies Active Allergy Reactions Criticality Noted Date [...] 10/23/2016 Status post hip replacement 09/25/2016 06/23/2023 Immunizations Immunization Administration Dates Next Due Tdap [...] Description 07/28/2025 9:30 AM EDT Office Visit [facility] [address] [place] [address] [phone] Nicole Hawkins DO [address] [phone] 09/14/2025 10:15 AM EDT Office Visit [facility] [address] [place] [address] Jessenia Linda MD [address] [place] [address] Health Maintenance Due Date Last Done Comments CT Colonography 1954 FIT-DNA 1954 Sigmoidoscopy 1955 Pneumococcal Vaccine: 65+ Ye ars (1 of 1 - PCV) 2004 FIT 12/14/2015 12/13/2014 FOBT 12/14/2015 12/13/2014 Influenza Vaccine (#1) 2024 02/19/1993 Mammogram 09/09/2025 09/09/2024, 0506/2023, 06/11/2021, Additional history exists Colonoscopy 10/08/2026 10/08/2016, 01/24/2015 Colorectal Cancer Screening 10/08/2026 Procedures Procedure Name Priority Date/Time Associated Diagnosis Comments BI MAMMOGRAM SCREENING TOMOSYNTHESIS BILATERAL Routine 09/09/2024 3:16 PM EDT Other screening mammogram from Last 3 Months or Most Recently Relevant to Health Maintenance Results * Bilateral screening mammogram with tomosynthesis (09/09/2024 3:16 PM EDT) Anatomical Region Laterality Modality Breast Bilateral Mammography 09/11/2024 1:25 PM EDT Impressions 09/11/2024 1:33 PM EDT Impression: No specific evidence of malignancy seen in either breast. BIRADS 2 - Benign Findings DENSITY: The breasts are almost entirely fatty. FOLLOW-UP: Routine Screening Mammogram ELECTRONICALLY SIGNED BY: Swati Gamboa 09/11/2024 1:33 PM EDT Examination: BI MAMMOGRAM [...] Final Re sult from Last 3 Months or Most Recently Relevant to Health Maintenance Insurance [employer] Care Teams Rainbow Trout Farm Manager Relationship Specialty Start Date End Date Casa Riddle MD [address] [place] [id number] PCP - General Family Medicine 04/15/23
--- OUTSIDE RECORDS SUMMARY | 2024-12-16 09:46 | XMS_ITS | Clinical Summary ---
Author Organization [facility] Address [address] [place] [address] Care Team Providers Care Superintendent Refuse Disposal Name Role Phone Casa Riddle Primary Care Provider Allergies Active Allergy Reactions [...] 03/25/2016 OCCULT BLOOD STOOL IMMUNOASSAY (YOSEF HERNANDEZ, [facility] ONLY) Routine 12/13/2014 10:00 AM EDT DEXA SCAN Routine 03/08/2009 from Last 3 Months or Most Recently Relevant to Health Maintenance Results * COLONOSCOPY (10/08/2016) Historical Provider SCANNED ORDERS Final Res ult * Mammography Screening Bilateral (03/25/2016) Anatomical Region Laterality Modality Breast Bilateral Mammography Result [facility] Historical Provider IMG MAMMOGRAPHY ORDERABLE S Final Result * Occult Blood Immunoassay (12/13/2014 10:00 AM EDT) Clinical Report MICRO [facility] Comment: .Specimen: Stool .Collected: 12/13/2014 10:00 . .Status: Final Last Updated: 12/13/2014 18:13 . . . Result (Final) . Negative for Occult Blood by Immunoassay . . The above 1 analytes were performed by [facility] [address] [place] [id number] Tests Performed at: [facility] (Unless Otherwise Specified) [address] [place] [address], [address] - CLIA #[id number] HOS - Order ID:[id number] Sample ID:[id number] 12/13/2014 10:0 0 AM EDT 12/13/2014 10:00 AM EDT Otis Poole MD MICROBIOLOGY - GENERAL ORDERABLES Final Result [facility] [address] [place] [address] * DEXA SCAN (03/08/2009) Anatomical Region Laterality Modality Other Historical Provider HEALTH MAINTENANCE Final Result from Last 3 Months or Most Recently Relevant to Health Maintenance Insurance [employer] ESS[employer]/PLUS[employer]CONNECT/SNP HMO Care Teams Superintendent Refuse Disposal Relationship Specialty Start Date End Date Casa Riddle DO [address] [place] [id number] PCP - General Family Medicine 02/06/21
--- OUTSIDE RECORDS SUMMARY | 2024-12-16 09:46 | XMS_ITS | Clinical Summary ---
Author Organization [facility] Address [address] [place] [address] Care Team Providers Care Station Worker Name Role Phone Venkatesh Casa Tawnya ROGEL Primary Care Provider [phone] Allergies Active Allergy Reactions Criticality Noted Date Comments Oxycodone-Acetaminophen Itching Medium 03/20/2015 Jumpy legs, hyper Medications ascorbic acid 500 MG Tab take 500 mg by mouth.. Active MULTIPLE VITAMIN PO take by mouth.. Act esteban Calcium 150 MG Tab Take by mouth daily. Active simvastatin 20 MG Tab tablet Take 1 tablet by mouth every evening at 6 PM. 90 tablet 3 8 Active sildenafil citrate 100 MG Tab tablet Take 100 mg by mouth. 8 Active busPIRone 10 MG Tab tabletIndicatio ns:Anxiety Take 1 tablet by mouth 3 times daily as needed. 90 tablet 1 9 Active Additional Information Patient not taking.Reported on 04/27/2020 Vortioxetine HBr 20 MG TabIndications: Anxiety Take 1 tablet by mouth daily. 90 tablet 2 9 Active Additional Information Patient not taking.Reported on 04/27/2020 tobramycin-dexa methasone 0.3-0.1 % Suspension 2 drops to bilateral ears tid 1 Bottle 9 Active Premarin 0.625 MG/GM Cream INSERT 0.5 GRAM VAGINALLY AT BEDTIME FOR 2 WEEKS THEN 2 TO 3 TIMES A WEEK THERAFTER 0 Active lamoTRIgine 100 MG tablet Take 100 mg by mouth daily. 0 Active venlafaxine 37.5 MG Cap SR 24HR capsule XR Take 37.5 mg by mouth daily. 0 Active Active Problems Problem Noted Date Diagnosed Date Recurrent major depressive disorder, in partial remission 03/30/2018 Female pelvic pain 10/23/2016 Hyperlipidemia 03/05/2016 Anxiety 03/05/2016 Depressed 10/05/2015 Family History Medical History Relation Name Comments Dementia Father Emphysema Father Hypertension Father Lipid Disorder Father Arthritis - Osteo Mother Glaucoma Mother Lung Cancer Mother Asthma Sister Breast Cancer Sister Depression Sister Lipid Disorder Sister Relation Name Status Comments Father Mother Sister Social History Tobacco Use Types Packs/Day Years Used Date Smoking Tobacco: Never Smokeless Tobacco: Never Alcohol Use Standard Drinks/Week Comments Yes 0 (1 standard drink = 0.6 oz pur e alcohol) 2 beers a week Comments No Sex and Gender Information Value Date Recorded Sex Assigned at Not on file Legal Sex Female 5:01 PM EST Gender Identity Female 10/08/2016 9:11 AM EDT Sexual Orientation Not on file Last Filed Vital Signs Vital Sign Reading Time Taken Comments Blood Pressure 110/60 07/27/2018 8:54 AM EDT Pulse 65 07/27/2018 8:54 AM EDT Temperature 36.9 C (98.5 F) 07/27/2018 8:54 AM EDT Respiratory Rate 16 07/27/2018 8:54 AM EDT Oxygen Saturation 96% 07/27/2018 8:54 AM EDT Inhaled Oxygen Concentration - - Weight 76.2 kg (168 lb) 11/27/2021 1:46 PM EDT Height 165.1 cm (5' 5 ) 11/27/2021 1:46 PM EDT Body Mass Index 27.96 11/27/2021 1:46 PM EDT Plan of Treatment Health Maintenance Due Date Last Done Comments HEPATITIS C VIRUS SCREENING 1954 LIPID SCREENING 1994 PNEUMOCOCCAL VACCINE SERIES (1 of 1 - PCV) 2004 ZOSTER (SHINGLES) VACCINE (2 of 3) 03/23/2010 01/26/2010 COLORECTAL CANCER SCREENING DISCUSSION 01/25/2016 01/24/2015 CERVICAL CANCER SCREENING DISCUSSION 04/29/2017 04/29/2016 (Previously completed) MAMMOGRAM SCREENING DISCUSSION 03/12/2019 03/12/2018, 04/29/2016 (Previously completed) DEXA SCAN 11/27/2021 11/27/2016, 11/27/2016 COVID-19 VACCINE (2023-2 5 season) 2023 01/29/2021, 07/18/2020, 06/26/2020 INFLUENZA VACCINE (#1) 2024 03/03/2018 (Declin ed) TETANUS 03/10/2027 03/10/2017, 08/26/2013 RSV VACCINE (1 - 1-dose 75+ series) 2029 TDAP (ADULT) Completed 03/10/2017, 08/26/2013 HEP B VACCINE Aged Out No longer elig ible based on patient's age to complete this topic Procedures Procedure Name Priority Date/Time Associated Diagnosis Comments MAMMO SCREENING BILATERAL Routine 03/12/2018 1:05 PM EST Screening for breast cancer BONE DENSITY AXIAL (HIP, PELVIS, SPINE) Routine 11/27/2016 1:49 PM EDT Screening for osteoporosis OUTSIDE COLONOSCOPY Routine 01/24/2015 from Last 3 Months or Most Recently Relevant to Health Maintenance Results * MAMMO SCREENING BILATERAL (03/12/2018 1:05 PM EST) Anatomical Region Laterality Modality breast Bilateral Mammography 03/12/2018 12:5 6 PM EST Impressions 03/13/2018 10:30 AM EST IMPRESSION: Stable pattern. BI-RADS 1 - Negative, no evidence of malignancy. Normal interval followup in 12 months. OVERALL ASSESSMENT- NEGATIVE A letter of notification will be sent to the patient regarding the results. Narrative 03/13/2018 10:30 AM EST BILATERAL DIGITAL SCREENING MAMMOGRAM, CAD: REASON FOR EXAM: SCREENING. COMPARISON: 11/07/2016, 03/09/2016, and 10/19/2014. TECHNIQUE: Bilateral craniocaudal and mediolateral oblique projections were obtained with additional CAD evaluation. FINDINGS: BREAST COMPOSITION: Primarily fatty tissue replaced. No new mass, malignant-type calcifications, architectural distortion, or other interval change is seen, to suggest malignancy. A few scattered benign-appearing calcifications are seen. Focal areas of mild glandular asymmetry are present and appear stable. Benign-appearing bilateral axillary yony densities are present. us Payton Duckworth MD BREAST IMAGING Final Resul t * BONE DENSITY AXIAL (HIP, PELVIS, SPINE) (11/27/2016 1:49 PM EDT) Anatomical Region Laterality Modality hip, Pelvis, L-spine Ultrasound Impressions 02/10/2017 1:12 PM EDT : (SEE [employer]INTED [employer] REPORT IN SYNAPSE FOR COMPLETE BONE DENSITOMETRY REPORT) 1. Based on the measurements above, the Bone Density of AP spine is Normal, and the Rt hip is Normal. The Lt hip has been replaced. This puts the patient at low risk for fracture. Note: T-Score is defined as the number of standard deviations from the young adult average. Negative values are less than average, positive values are greater than average. Narrative 02/10/2017 1:12 PM EDT DEXA PROCEDURE REFERRING PHYSICIAN: Dr. Wilson TECHNOLOGIST: Brina Lopez PROCEDURE DATE: 11/27/2016 TECHNIQUE: The bone mineral density was measured across the lumbar spine and bilateral hips utilizing a [employer] unit. INDICATIONS: Screening for Osteoporosis PROCEDURE DETAILS: DEXA done. T-Scores - AP Spine 2.4 1.491 g/cm2 Rt. Hip -0.3 0.967 g/cm2 Rt. Femoral Neck -1.0 0.900 g/cm2 FINAL us Lacey Tellez BUFFET ATTENDANT-SALESPERSON BOOKS DEXA ORDERABLES Final Result * COLONOSCOPY (OUTSIDE) (01/24/2015) Anatomical Region Laterality Modality Other Historical Provider GI/BRONCH PROCEDURE ORDERABL ES Final Result from Last 3 Months or Most Recently Relevant to Health Maintenance Care Teams Station Worker Relationship Specialty Start Date End Date Casa Riddle DO [address] [place] [id number] PCP - General Family Medicine 04/27/20
--- OUTSIDE RECORDS SUMMARY | 2024-12-16 09:56 | XMS_ITS | CCD ---
Author Organization [facility] Care Team Providers Care Data Technical Lead Name Role Phone Desire Britt Unavailable DESIRE BRITT Unavailable Unavailab CHIKI Bagley Unavailable Autumn vailable CHIKI BRITT Unavailable Autumn vailable DESIRE BRITT Unavailable Unavailab le HAY, AMI Unavailable Unavailable HAY, AMI Unavailable Unavailable UNKNOWN, PROVIDER Unavailable Unavailable DESIRE BRITT Unavailable Unavailable ISIDRO BIRCH Unavailable Unavailable QUETAISIDRO Gurrola Unavailable Unavailable DESIRE BRITT Unavailable Unavailab le QUETAISIDRO Gurrola Unavailable Unavailable RERICKY CARPENTER Unavailable Unavailable ISIDRO BIRCHY Unavailable Unavailable DESIRE BRITT Unavailable Unavailab le [...] Unavailable DO Karen Cardoso Primary Care Provider [phone] MD Finn Ortez II Attending Provider Finn [...] MD Finn Ortez II Attending Provider [phone] DO Karen Cardoso Primary Care Provider MD Floyd Hampton Attending Provider DO Karen Cardoso Attending Provider [phone] DO Karen Cardoso Primary Care Provider MD Floyd Hampton Attending Provider MD Finn Ortez II Attending Provider MD Floyd Hampton Attending Provider DO Karne Cardoso Primary Care Provider MD Floyd Hampton Attending Provider [phone] DO Karen Cardoso Primary Care Provider MD Finn Ortez II Attending Provider MD Floyd Hampton Attending Provider [phone] Karen Cardoso MD Primary Care Provider [facility] Finn Ortez MD Attending Provider Berta NEWBERRY, Floyd Attending Provider Walker ROGEL, Karen Primary Care Provider Berta NEWBERRY, Floyd Attending Provider Lay Alvarez MD Attending Provider Karen Cardoso MD Primary Care Provider NICOLE HAWKINS Attending Unavailable SHERYL COOPER Attending Unavailable NICOLE HAWKINS Referring Unavailable ANGELA LINDA Attending Unavailable Lay Alvarez MD Referring Provider Finn Ortez II Admitting Unavailabl e Walker Karen Primary Care Unavailable Pérez SHAFFER, Finn Clifford Attending Unavailabl e Pérez SHAFFER, Finn Clifford Admitting Unavailabl e Karen Cardoso Primary Care Unavailable [place], Finn Clifford Attending Unavailabl e Walker Karen Primary Care Unavailable [place], Finn Clifford Attending Unavailabl e Pérez II, Finn Clifford Admitting Unavailabl e Karen Cardoso Primary Care Unavailable [place] II, Finn Clifford Attending Unavailabl e Pérez SHAFFER, Finn Clifford Admitting Unavailabl e Lay Alvarez Admitting Unavailable Lay Alvarez Attending Unavailable Karen Cardoso Primary Care Unavailable Pérez II, Finn Clifford Admitting [facility] Unavailable [place] II, Finn Clifford Attending Unavailabl e Lay [...] Translations: [OXYCODONE-ACETAM INOPHEN] Drug Allergy 5 [facility] (20 sources) Acetaminophen / oxyCODONE; Translations: [Percocet] Drug Allergy 3 [facility] (19 sources) DULoxetine Drug Allergy headaches [email or web address] [facility] [employer] Other (19 sources) FLUoxetine Drug Allergy doesn't work [facility] [employer] Other (13 sources) Acetaminophen; Translations: [acetaminophen] Drug Allergy 4 [facility] (20 sources) DULoxetine; Translations: [duloxetine] Drug Allergy 4 [facility] (20 sources) FLUoxetine; Translations: [fluoxetine] Drug Allergy 4 doesn't work [facility] (20 sources) oxyCODONE; Translations: [oxycodone] Drug Allergy 4 [facility] Medications Current Medications Medication Drug [...] every six hours as needed HYDROcodone-aceta minophen ([place]) 5-325 MG tablet Take 1 tablet by [...] And Nails (Biotin)) 10,000 mcg tablet,chewable Active 57288 MCG PO Daily December 21, 2023 11:00pm Start: 12-22-2023 take 1 tablet by anam th once daily Biotin (Hair, Skin And Nails (Biotin)) 10,000 mcg tablet,chewable Active 82158 MCG PO Daily December 22, 2023 12:00am [...] Take 2 tablets by mouth daily. Lot [id number], Exp 02/14 28 tablet 0 03/30/2018 05/11/2018 [...] Take 1 tablet by mouth daily. Lot [id number], exp 12/15 14 tablet 03/03/2018 03/26/2018 Discontinued [...] times daily. 05/11/2018 Discontinued polyethylene glycol 3350 03163 mg powder for oral solution (11 sources) [...] current use of drug therapy; Translations: [Other shelter (current) drug therapy] 11-19-2023 Episodic Other and [...] 12-13-2014 Episodic Other aftercare (9 sources) Other manager long term care (current) drug therapy; Translations: [OTH DETENTION CURRENT DRUG THERAPY] Onset: 02-07-2022 Episodic Other [...] 10-01-2024 [place] [address] Nuclear Medicine Report Signed Patient: Antonino Torres MR#: [id number] : 1955 Acct:[id number] Age/Sex: 68 / F ADM Date: 10/01/24 Loc: [place] Room: Type: [facility] Attending Dr: Lay Alvarez MD Copies to: [...] Alvarez M.D. 10/01/2024 4:24 PM Dictation Location: [place] [address] Transcribed By: SAGAR 10/01/24 1624 Dictated By: Lay Alvarez MD 10/01/24 1623 Signed By: 10/01/24 162 Normal [facility] No Panel InformationOrdered By: Lay Alvarez on 10-01-2024 [facility] [address] [place] [address] Cardiac Stress Test Signed Patient: Antonino Torres MR#: [id number] : 1955 Date of Service:0 10/01/24 Age/Sex: 68 / F ADM Date: 5 Loc: [place] Room: Type: [facility] Attending Dr: Lay Alvarez MD Copies to: [...] MD 10/01/24 1547 Signed By: 10/01/24 1552 [facility] Work Phone: [facility] ECG *CARDIOLOGY ONLY*on 08-26-2024 [facility] ECG *CARDIOLOGY ONLY* [facility] Main [address] [address] Electrocardiograph Report Signed Patient: Antonino Torres MR#: [id number] : 1955 Acct:[id number] Age/Sex: 68 / F ADM Date: 08/26/24 Loc: [place] Room: Type: [facility] Attending Dr: Lay Alvarez MD Ordering Provider: [...] rhythm Normal ECG Confirmed by Lay Alvarez ([id number]) on 08/26/2024 3:26:34 PM Referred By: Electronically Signed By: Lay Alvarez Transcribed By: MUS Signed By Lay Alvarez MD 5 1526 Normal [facility] BI MAMMOGRAM SCREENING TOMOS YNTHESIS [...] Routine Screening Mammogram ELECTRONICALLY SIGNED BY: Yeyo Maahjan M.D. Normal Not Available Basophils Auto (Bld) [#/Vol] on 06-11-2024 Basophils (Bld) [#/Vol] Automated basophil count 0.0-0.1 [facility] Basophils/100 WBC Auto (Bld) on 02-14-2025 Basophils/100 WBC (Bld) Automated basophil % 0.2-2.0 [facility] Cholesterol in LDL Calc [Mas s/Vol]on 06-11-2024 Cholesterol in LDL [Mass/Vol] Cholesterol in LDL [Mass/volume] in Serum or Plasma by calculation [facility] Comment on above: <100 mg/dl [id number] 0-129 mg/dl NEAR OR ABOVE [id number] mg/dl BORDERLINE [id number] mg/dl HIGH>190 mg/dl VERY HIGH Cholesterol in VLDL Calc [Ma ss/Vol]on 06-11-2024 Cholesterol in VLDL [Mass/Vol] Cholesterol in VLDL [Mass/volume] in Serum or Plasma by calculation [facility] Eosinophils/100 WBC Auto (Bl d)on 06-11-2024 Eosinophils/100 WBC (Bld) Automated eosinophil % 0.9-7.0 [facility] Erythrocyte distribution wid th Auto (RBC) [Ratio]on 06-11-2024 Erythrocyte distribution width (RBC) [Ratio] Erythrocyte distribution width [Ratio] by Automated count 11.0-15.0 [facility] Estimated glomerular filtrat ion rate (GFR) non- Americanon 06-11-2024 GFR/1.73 sq M.predicted among non-blacks MDRD (S/P/Bld) [Vol rate/Area] Estimated glomerular filtration rate (GFR) non- >=60 mL/min/1.7 3m 2 [facility] Globulin Calc (S) [Mass/Vol] on 06-11-2024 Globulin (S) [Mass/Vol] Serum globulin measurement by calculation (mass/volume) [facility] Glucose mean value [Mass/vol ume] in Blood Estimated from glycated hemoglobinon 06-11-2024 Average glucose Estimated from glycated hemoglobin (Bld) [Mass/Vol] Glucose mean value [Mass/volume] in Blood Estimated from glycated hemoglobin [facility] Hematocrit Auto (Bld) [Volum e fraction]on 06-11-2024 Hematocrit (Bld) [Volume fraction] Hematocrit [Volume Fraction] of Blood by Automated count 36.0-48.0 [facility] Hemoglobin A1c percentageon 06-11-2024 HbA1c (Bld) [Mass fraction] Hemoglobin A1c percentage 4.5-6.2 [facility] Comment on above: ADA RECOMMENDED LIMI T 4.0 - 6.0ADA THERAPEUTIC TARGET < 7.0ACTION SUGGESTED> 7.0 Hemoglobin [Mass/volume] in Bloodon 06-11-2024 Hemoglobin (Bld) [Mass/Vol] Hemoglobin [Mass/volume] in Blood 12.0-16.0 [facility] Laboratory - Chemistry and C hemistry - challengeon 06-11-2024 Bilirubin Ql (U) Negative NEGATIVE [facility] Glucose (U) [Mass/Vol] Negative NEGATIVE [facility] Ketones Ql (U) Negative NEGATIVE [facility] pH (U) 6.0 [pH] 5.0-9.0 [facility] Specific gravity (U) [Rel density] 1.020 1.005-1.02 5 [facility] Urobilinogen Qn (U) 0.2 {Sajan'U}/dL 0.2-1.0 [facility] Albumin [Mass/Vol] 3.6 g/dL 3.4-5.0 [facility] ALP [Catalytic activity/Vol] 93 U/L 46-116 [facility] ALT [Catalytic activity/Vol] 24 U/L 14-59 [facility] AST [Catalytic activity/Vol] 22 U/L 15-37 [facility] Bilirubin [Mass/Vol] 0.8 mg/dL 0.2-1.0 [facility] Calcium [Mass/Vol] 8.6 mg/dL 8.5-10.1 [facility] Chloride [Moles/Vol] 106 mmol/L 98-107 [facility] Cholesterol [Mass/Vol] 145 mg/dL <=200 [facility] Cholesterol in HDL [Mass/Vol] 57 mg/dL 40-60 [facility] Comment on above: > or =60 mg/dl - LOW CARDIOVASCULAR RISK<40 mg/dl - HIGH CARDIOVASCULAR RISK CO2 [Moles/Vol] 29.6 mmol/L 21.0-32.0 [facility] Creatinine [Mass/Vol] 0.68 mg/dL 0.55-1.02 [facility] GFR/1.73 sq M.predicted MDRD (S/P/Bld) [Vol rate/Area] mL/min/{1.73_m2} >=60 mL/min/1.7 3m 2 [facility] Glucose [Mass/Vol] 98 mg/dL 74-106 [facility] Potassium [Moles/Vol] 3.7 mmol/L 3.5-5.1 [facility] Protein [Mass/Vol] 7.0 g/dL 6.4-8.2 [facility] Sodium [Moles/Vol] 143 mmol/L 136-145 [facility] Triglyceride [Mass/Vol] 117 mg/dL <=150 [facility] Urea nitrogen [Mass/Vol] 10.0 mg/dL 7.0-18.0 [facility] Urea nitrogen/Creatinine [Mass ratio] 14.7 mg/mg [facility] Laboratory - Hematology and Cell countson 06-11-2024 Immature granulocytes/100 WBC (Bld) 0.2 % 0.0-0.5 [facility] Laboratory - Specimen inform ationon 06-11-2024 Appearance (U) CLEAR CLEAR [facility] Color (U) YELLOW YELLOW [facility] Laboratory - Urinalysison Leukocyte esterase Test strip Ql (U) TRACE Abnormal NEGATIVE [facility] Mucus Ql (Urine sed) MODERATE Abnormal NONE SEEN [facility] Nitrite Ql (U) Negative NEGATIVE [facility] Protein Ql (U) Negative NEG/TRACE [facility] Leukocytes [#/volume] correc main for nucleated erythrocytes in Blood by Automated counon 06-11-2024 WBC corrected for nucl RBC Auto (Bld) [#/Vol] Leukocytes [#/volume] corrected for nucleated erythrocytes in Blood by Automated coun 4.0-11.0 [facility] Lymphocytes Auto (Bld) [#/Vo l]on 06-11-2024 Lymphocytes (Bld) [#/Vol] Lymphocytes [#/volume] in Blood by Automated count 1.2-3.8 [facility] Lymphocytes/100 WBC Auto (Bl d)on 06-11-2024 Lymphocytes/100 WBC (Bld) Lymphocytes/100 leukocytes in Blood by Automated count Low 20.5-60.0 [facility] MCH Auto (RBC) [Entitic mass ]on 06-11-2024 MCH (RBC) [Entitic mass] MCH [Entitic mass] by Automated count 26.7-34.0 [facility] MCHC Auto (RBC) [Mass/Vol]on 06-11-2024 MCHC (RBC) [Mass/Vol] MCHC [Mass/volume] by Automated count 29.9-35.2 [facility] MCV Auto (RBC) [Entitic vol] on 06-11-2024 MCV (RBC) [Entitic vol] MCV [Entitic volume] by Automated count 81.0-99.0 [facility] Monocytes Auto (Bld) [#/Vol] on 06-11-2024 Monocytes (Bld) [#/Vol] Automated blood monocyte count 0.3-0.8 [facility] Monocytes/100 WBC Auto (Bld) on 06-11-2024 Monocytes/100 WBC (Bld) Automated monocyte % 1.7-12.0 [facility] Neutrophils Auto (Bld) [#/Vo l]on 06-11-2024 Neutrophils (Bld) [#/Vol] Neutrophils [#/volume] in Blood by Automated count High 1.4-6.5 [facility] Neutrophils/100 WBC Auto (Bl d)on 06-11-2024 Neutrophils/100 WBC (Bld) Automated neutrophil % 43.0-75.0 [facility] No Panel Informationon 06-11 Urine Bacteria SMALL #/HPF Abnormal NONE SEEN [facility] Urine Culture Reflexed ALREADY ORDERED [facility] Urine Occult Blood Negative NEGATIVE [facility] Urine Other Casts NONE SEEN #/LPF NONE SEEN [facility] Urine Other Crystals None Seen #/HPF None Seen [facility] Urine RBC 0-2 #/HPF 0-2 [facility] Urine Squamous Epithelial Cells FEW #/LPF Abnormal NONE/RARE [facility] Urine Transitional Epithelial Cells RARE #/LPF Abnormal NONE SEEN [facility] Urine WBC 2-5 #/HPF Abnormal NONE SEEN [facility] Eosinophils # (Auto) 0.3 10 3/uL 0.0-0.7 [facility] Immature Granulocyte # (Auto) 0.02 10 3/uL 0.00-0.03 [facility] Platelet mean volume Auto (B ld) [Entitic vol]on 06-11-2024 Platelet mean volume (Bld) [Entitic vol] Platelet mean volume [Entitic volume] in Blood by Automated count Low 9.5-13.5 [facility] Platelets Auto (Bld) [#/Vol] on 06-11-2024 Platelets (Bld) [#/Vol] Platelets [#/volume] in Blood by Automated count 150-450 [facility] RBC Auto (Bld) [#/Vol]on RBC (Bld) [#/Vol] Erythrocytes [#/volu me] in Blood by Automated count 4.20-5.40 [facility] Serum or plasma albumin/glob ulin mass ratioon 06-11-2024 Albumin/Globulin [Mass ratio] Serum or plasma albumin/globulin mass ratio [facility] Serum or plasma anion gap de terminationon 06-11-2024 Anion gap [Moles/Vol] Serum or plasma anion gap determination [facility] Serum or plasma total choles terol/high density lipoprotein (HDL) cholesterol mass amador 06-11-2024 Cholesterol.total/Ch olesterol in HDL [Mass ratio] Serum or plasma total cholesterol/high density lipoprotein (HDL) cholesterol mass rat [facility] Comment on above: 3.3 - 4.4 LOW RISK4. 4 - 7.1 AVERAGE RISK7.1 - 11.0 MODERATE RISK>11.0 HIGH RISK XR hip RT min 2V(w/wo pelvis )*on 04-07-2024 XR hip RT min 2V(w/wo pelvis)* [facility] [address] [place] [address] XRay Report Signed Patient: Antonino Torres MR#: [id number] : 1955 Acct:[id number] Age/Sex: 68 / F ADM Date: 04/07/24 [place] [facility] [place]: Type[place] [facility] Attending Dr: Finn Ortez II, MD Copies [...] Gary Ley M.D.04/07/2024 2:14 PM Dictation Location: [place] [address] Transcribed By: [facility] 04/07/24 141 Dictated By: Gary Ley DO 04/07/24 141 Signed By: 04/07/24 141 Normal [facility] XR hip RT min 2V(w/wo pelvis )*on 02-24-2024 XR hip RT min 2V(w/wo pelvis)* [facility] [address] [place] [address] XRay Report Signed Patient: Antonino Torres MR#: [id number] : 1955 Acct:[id number] Age/Sex: 68 / F ADM Date: 02/24/24 [place] [facility] [place]: Type[place] [facility] Attending Dr: Finn Ortez II, MD Copies [...] 1:05 PM Dictation Location: RADIO-PC-23 Transcribed By: [facility] 02/24/24 1305 Dictated By: Silvina Rolon MD 02/24/24 1303 Signed By: 02/24/24 1305 Normal [facility] Laboratory - Chemistry and C hemistry - challengeon 02-05-2024 Bilirubin Ql (U) Negative NEGATIVE [facility] Glucose (U) [Mass/Vol] Negative NEGATIVE [facility] Ketones Ql (U) Negative NEGATIVE [facility] pH (U) 6.0 [pH] 5.0-9.0 [facility] Specific gravity (U) [Rel density] <=1.005 Abnormal 1.005-1.02 5 [facility] Urobilinogen Qn (U) 0.2 {Sajan'U}/dL 0.2-1.0 [facility] Laboratory - Specimen inform ationon 02-05-2024 Appearance (U) CLEAR CLEAR [facility] Color (U) LT. YELLOW YELLOW [facility] Laboratory - Urinalysison Leukocyte esterase Test strip Ql (U) Negative NEGATIVE [facility] Mucus Ql (Urine sed) NONE SEEN NONE SEEN [facility] Nitrite Ql (U) Negative NEGATIVE [facility] Protein Ql (U) Negative NEG/TRACE [facility] No Panel Informationon 02-04 Miscellaneous Test Comment See comment [facility] Comment on above: Specimen Source: UCC - Urine,Clean Catch - Urine CC - 200.100 Urine Bacteria TRACE #/HPF Abnormal NONE SEEN [facility] Urine Culture Reflexed NO [facility] Urine Culture Result 1 \R\ Urine Culture, Routine [facility] Urine Occult Blood TRACE-I NEGATIVE [facility] Urine Other Casts NONE SEEN #/LPF [facility]ONE [facility] Urine Other Crystals None Seen #/HPF None Seen [facility] Urine RBC NONE SEEN #/HPF 0-2 [facility] Urine Squamous Epithelial Cells RARE #/LPF NONE/RARE [facility] Urine WBC NONE SEEN #/HPF NONE SEEN [facility] XR hip RT min 2V(w/wo pelvis )*on 01-21-2024 XR hip RT min 2V(w/wo pelvis)* [facility] [address] [place] [address] XRay Report Signed Patient: Antonino Torres MR#: [id number] : 1955 Acct:[id number] Age/Sex: 68 / F ADM Date: 01/21/24 [place] [facility] [place]: Type[facility] Attending Dr: Finn Ortez II, MD Copies [...] Trinidad Jr., D.OElla01/21/2024 12:36 PM Dictation Location: [place] [address] Transcribed By: [facility] 01/21/24 1236 Dictated By: Isidro Trinidad Jr, DO 01/21/24 1234 Signed By: 01/21/24 1236 Normal [facility] ABO/Rh Retypeon 01-05-2024 ABO/RH Recheck Result Positive Normal [facility] Comment on above: Result Comment: PERF ORMED BY: [facility] [address] [place] [address] PATHOLOGIST [employer]ST CONTRO[employer]ER KOMAL Babb 01-05-2024 L Specimen: [id number] Received: 01/06/24-1047 Status: SOUT Req Num: [id number] Spec Type: Surgical Subm Dr: Finn Ortez MD Tissues: A Femoral Head - Other than Fracture (R HIP) Procedures: HE/2, Gross/Micro L3, Decalcification Age/ Patient Sex Location Account Attending Physician BrianAntonino Felipa 68/F [place] [id number] Finn Ortez MD SPEC NUM: [id number] RECD: 01/06/24 STATUS: MELISSA CONDE NUM: [id number] JASKARAN: 01/05/[address] [facility] [address]: Finn Ortez MD ENTERED: 01/06/24 [facility] DR: JEAN-PIERRE TYPE: Surgical DEPT: S ENTERED BY: [id number] RECV BY: [id number] ORDERED: HE/2, Gross/Micro L3, Decalcification ORDERED: HE/2, [...] greatest dimension. Moderate osteophytic lipping grossly identified. Electrical Experimental Mechanic sections are as follows: A1 eburnation, (submitted in decal before routine processing) A2 osteophytic lipping and soft tissue, (submitted in decal before routine processing) CPT Codes 25621 Specimen: [id number] Received: 01/06/24 Status: MELISSA Conde Num: [id number] Spec Type: Surgical Subm Dr: Finn Ortez MD Tissues: A Femoral Head - Other than Fracture (R HIP) Procedures: HE/2, Gross/Micro L3, Decalcification Patient: Antonino Torres [id number] (Continued) Signed (signature on file) Mary Mccarthy MD 01/15/241914 Normal [facility] XR hip RT 1Von 01-05-2024 XR hip RT [address] [address] XRay Report Signed Patient: Antonino Torres MR#: [id number] : 1955 Acct:[id number] Age/Sex: 68 / F ADM Date: 01/05/24 Loc: [place] Room: Type: [facility] Attending Dr: Finn Ortez II, MD [...] 11:48 AM Dictation Location: RADIO--07 Transcribed By: [facility] 01/05/24 1148 Dictated By: Justen Jenkins II, MD 01/05/24 1147 Signed By: 01/05/24 1148 Normal [facility] XR low pelvis w/RT x-table h ipon 01-05-2024 XR low pelvis w/RT x-table hip [facility] [place] [address] XRay Report Signed Patient: Antonino Torres MR#: [id number] : 1955 Acct:[id number] Age/Sex: 68 / F ADM Date: 01/05/24 Loc: [place] Room: Type: [facility] Attending Dr: Finn Ortez II, MD [...] Gary Ley M.D.01/05/2024 4:38 PM Dictation Location: [facility] Transcribed By: [facility] 01/05/24 1638 Dictated By: Gary Ley DO 01/05/24 1637 Signed By: 01/05/24 1638 Normal [facility] Automated basophil %Ordered By: Finn Ortez on 12-22-2023 Basophils/100 WBC (Bld) 0.2 % Normal . [facility] Comment on above: Performed By: #### F RUC #### [facility] , #### CBC #### [address] Automated basophil countOrde red By: Finn Ortez on 12-22-2023 Basophils (Bld) [#/Vol] 0.0 10*3/uL Normal 0.0-0.2 [facility] Comment on above: Result Comment: PERF ORMED BY: [place] [address] PATHOLOGIST PEST CONTROLLER KOMAL COFFMAN M.D. Performed By: #### F RUC #### [facility] , #### CBC #### [address] Automated blood monocyte cou ntOrdered By: Finn Ortez on 12-22-2023 Monocytes (Bld) [#/Vol] 0.5 10*3/uL Normal 0.0-0.8 [facility] Comment on above: Performed By: #### F RUC #### [facility] , #### CBC #### [address] Automated eosinophil %Ordere d By: Finn Ortez on 12-22-2023 Eosinophils/100 WBC (Bld) 2.0 % Normal . [facility] Comment on above: Performed By: #### F RUC #### [facility] , #### CBC #### [address] Automated eosinophil countOr dered By: Finn Ortez on 12-22-2023 Eosinophils (Bld) [#/Vol] 0.1 10*3/uL Normal 0.0-0.45 [facility] Comment on above: Performed By: #### F RUC #### [facility] , #### CBC #### [address] Automated monocyte %Ordered By: Finn Ortez on 12-22-2023 Monocytes/100 WBC (Bld) 7.0 % Normal . [facility] [facility] Comment on above: Performed By: #### F RUC #### [facility] , #### CBC #### [address] Automated neutrophil %Ordere d By: Finn Ortez on 12-22-2023 Neutrophils/100 WBC (Bld) 62.4 % Normal . [facility] Comment on above: Performed By: #### F RUC #### [facility] , #### CBC #### [address] Complete Blood Count Auto Di ffon 12-22-2023 Mean Corpuscular HGB Conc 33.6 g/dL Normal 32.0-35.0 [facility] Comment on above: Performed By: #### F RUC #### [facility] , #### CBC #### [address] NRBC% 0.1 /100{WBC} Normal 0-0.5 [facility] Comment on above: Performed By: #### F RUC #### [facility] , #### CBC #### [address] Erythrocyte distribution wid th [Ratio] by Automated countOrdered By: Finn Ortez on 12-22-2023 Erythrocyte distribution width (RBC) [Ratio] 14.2 % Normal 11.9-15.3 [facility] Comment on above: Performed By: #### F RUC #### [facility] , #### CBC #### [address] Erythrocytes [#/volume] in B lood by Automated countOrdered By: Finn Ortez on 12-22-2023 RBC (Bld) [#/Vol] 4.41 10*6/uL Normal 3.60-5.00 [facility] Comment on above: Performed By: #### F RUC #### [facility] , #### CBC #### [facility] [address] Fructosamineon 12-22-2023 Fructosamine 216 umol/L Normal 0-285 [facility] Comment on above: Result Comment: Publ ished reference interval for apparently healthy subjects between age 20 and 60 is 205 - 285 umol/L and in a poorly controlled diabetic population is 228 - 563 umol/L with a mean of 396 umol/L. Performed at: [email or web address] [place] [address] [place], [place] [id number] [employer] Associate: Chang Quinteros PhD, Phone: [phone] PERFORMED BY: [place] [address] PATHOLOGIST PEST CONTROLLER KOMAL COFFMAN M.D. Performed By: #### F RUC ####[facility] ,#### CBC ####[facility] Fructosamine [Moles/volume] in Serum or PlasmaOrdered By: Finn Ortez on 12-22-2023 Fructosamine [Moles/Vol] 216 umol/L 0-285 [facility] Comment on above: Published reference interval for apparently healthysubjects between age 20 and 60 is 205 - 285 umol/L and in apoorly controlled diabetic population is 228 - 563 umol/Lwith a mean of 396 umol/L.Performed at: [email or web address] [address] [place], [place] [id number] Director: Chang Quinteros PhD, Phone: [phone] Hematocrit [Volume Fraction] of Blood by Automated countOrdered By: Finn Ortez on 12-22-2023 Hematocrit (Bld) [Volume fraction] 38.6 % Normal 34.0-46.4 [facility] Comment on above: Performed By: #### F RUC #### [facility] , #### CBC #### [facility] [address] Hemoglobin [Mass/volume] in BloodOrdered By: Finn Ortez on 12-22-2023 Hemoglobin (Bld) [Mass/Vol] 13.0 g/dL Normal 11.8-15.4 [facility] Comment on above: Performed By: #### F RUC #### [facility] , #### CBC #### [address] Leukocytes [#/volume] correc main for nucleated erythrocytes in Blood by Automated counOrdered By: Finn Ortez on 12-22-2023 WBC corrected for nucl RBC Auto (Bld) [#/Vol] 6.8 10*3/uL 3.8-11.6 [facility] Leukocytes [#/volume] in Blo od by Automated countOrdered By: Finn Ortez on 12-22-2023 WBC (Bld) [#/Vol] 6.8 10*3/uL Normal 3.8-11.6 [facility] Comment on above: Performed By: #### F RUC #### [facility] , #### CBC #### [facility] [address] [place] [address] [place] Lymphocytes [#/volume] in Bl ood by Automated countOrdered By: Finn Ortez on 12-22-2023 Lymphocytes (Bld) [#/Vol] 1.9 10*3/uL Normal 1.00-4.8 [facility] Comment on above: Performed By: #### F RUC #### [facility] , #### CBC #### [facility] [address] [place] [address] [place] Lymphocytes/100 leukocytes i n Blood by Automated countOrdered By: Finn Ortez on 12-22-2023 Lymphocytes/100 WBC (Bld) 28.4 % Normal . [facility] Comment on above: Performed By: #### F RUC #### [facility] , #### CBC #### [facility] [address] [place] [address] MCH [Entitic mass] by Automa main countOrdered By: Finn Ortez on 12-22-2023 MCH (RBC) [Entitic mass] 29.4 pg Normal 24.7-34.3 [facility] Comment on above: Performed By: #### F RUC #### [facility] , #### CBC #### [address] MCHC Auto (RBC) [Mass/Vol]Or dered By: Finn Ortez on 12-22-2023 MCHC (RBC) [Mass/Vol] 33.6 g/dL 32.0-35.0 [facility] MCV [Entitic volume] by Auto mated countOrdered By: Finn Ortez on 12-22-2023 MCV (RBC) [Entitic vol] 87.4 fL Normal 80-100 [facility] Comment on above: Performed By: #### F RUC #### [facility] , #### CBC #### [address] Neutrophils [#/volume] in Bl ood by Automated countOrdered By: Finn Ortez on 12-22-2023 Neutrophils (Bld) [#/Vol] 4.3 10*3/uL Normal 1.8-7.7 [facility] Comment on above: Performed By: #### F RUC #### [facility] , #### CBC #### [facility] [address] [place] [address] Nucleated erythrocytes [Pres ence] in Blood by Automated countOrdered By: Finn Ortez on 12-22-2023 Nucleated RBC Auto Ql (Bld) 0.1 /100{WBC} 0-0.5 [facility] PST Type and Screenon 2023 ABO and Rh group Nom (Bld) Blood group O Rh(D) positive Normal [facility] Comment on above: Order Comment: Date of Surgery: [id number] Result Comment: PERF ORMED BY: [place] [address] PATHOLOGIST PEST CONTROLLER KOMAL COFFMAN M.D. Platelet mean volume [Entiti c volume] in Blood by Automated countOrdered By: Finn Ortez on 12-22-2023 Platelet mean volume (Bld) [Entitic vol] 7.4 fL Normal 6.3-10.7 [facility] Comment on above: Performed By: #### F RUC #### [facility] , #### CBC #### [facility] [address] [place] [address] Platelets [#/volume] in Bloo d by Automated countOrdered By: Finn Ortez on 12-22-2023 Platelets (Bld) [#/Vol] 306 10*3/uL Normal 150-450 [facility] Comment on above: Performed By: #### F RUC #### [facility] , #### CBC #### [facility] [address] [place] [address] Basophils Auto (Bld) [#/Vol] on 12-19-2023 Basophils (Bld) [#/Vol] 0.1 10 3/uL 0.0-0.1 [facility] Basophils/100 WBC Auto (Bld) on 12-19-2023 Basophils/100 WBC (Bld) 0.4 % 0.2-2.0 [facility] Eosinophils/100 WBC Auto (Bl d)on 12-19-2023 Eosinophils/100 WBC (Bld) 1.2 % 0.9-7.0 [facility] Erythrocyte distribution wid th Auto (RBC) [Ratio]on 12-19-2023 Erythrocyte distribution width (RBC) [Ratio] 13.7 % 11.0-15.0 [facility] Estimated glomerular filtrat ion rate (GFR) non- Americanon 12-19-2023 GFR/1.73 sq M.predicted among non-blacks MDRD (S/P/Bld) [Vol rate/Area] mL/min/{1.73_m2} >=60 [facility] Globulin Calc (S) [Mass/Vol] on 12-19-2023 Globulin (S) [Mass/Vol] 2.9 g/dL [facility] Hematocrit Auto (Bld) [Volum e fraction]on 12-19-2023 Hematocrit (Bld) [Volume fraction] 40.6 % 36.0-48.0 [facility] Hemoglobin [Mass/volume] in Bloodon 12-19-2023 Hemoglobin (Bld) [Mass/Vol] 13.3 g/dL 12.0-16.0 [facility] INR in Platelet poor plasma by Coagulation assayon 12-19-2023 INR Coag (PPP) [Relative time] 0.95 {INR} [facility] Comment on above: DESIRED INR:2.0-3.0 CONDITIONS NOT LISTED BELOW2.5-3.5 FOR PROSTHETIC HEART VALVE REPLACEMENT2.5-3.5 RECURRENT THROMBOSIS Laboratory - Chemistry and C hemistry - challengeon 12-19-2023 Bilirubin Ql (U) Negative NEGATIVE [facility] Glucose (U) [Mass/Vol] Negative NEGATIVE [facility] Ketones Ql (U) 40 mg/dL Abnormal NEGATIVE [facility] pH (U) 5.5 [pH] 5.0-9.0 [facility] Specific gravity (U) [Rel density] >=1.030 Abnormal 1.005-1.02 5 [facility] Urobilinogen Qn (U) 0.2 {Sajan'U}/dL 0.2-1.0 [facility] Albumin [Mass/Vol] 4.0 g/dL 3.4-5.0 [facility] ALP [Catalytic activity/Vol] 90 U/L 46-116 [facility] ALT [Catalytic activity/Vol] 34 U/L 14-59 [facility] AST [Catalytic activity/Vol] 27 U/L 15-37 [facility] Bilirubin [Mass/Vol] 0.6 mg/dL 0.2-1.0 [facility] Calcium [Mass/Vol] 9.2 mg/dL 8.5-10.1 [facility] Chloride [Moles/Vol] 104 mmol/L 98-107 [facility] CO2 [Moles/Vol] 28.2 mmol/L 21.0-32.0 [facility] Creatinine [Mass/Vol] 0.79 mg/dL 0.55-1.02 [facility] GFR/1.73 sq M.predicted MDRD (S/P/Bld) [Vol rate/Area] mL/min/{1.73_m2} >=60 [facility] Glucose [Mass/Vol] 93 mg/dL 74-106 [facility] Potassium [Moles/Vol] 3.6 mmol/L 3.5-5.1 [facility] Protein [Mass/Vol] 6.9 g/dL 6.4-8.2 [facility] Sodium [Moles/Vol] 142 mmol/L 136-145 [facility] Urea nitrogen [Mass/Vol] 14.0 mg/dL 7.0-18.0 [facility] Urea nitrogen/Creatinine [Mass ratio] 17.7 mg/mg [facility] Laboratory - Hematology and Cell countson 12-19-2023 Immature granulocytes/100 WBC (Bld) 0.3 % 0.0-0.5 [facility] Laboratory - Specimen inform ationon 12-19-2023 Appearance (U) SL CLOUDY CLEAR [facility] Color (U) YELLOW YELLOW [facility] Laboratory - Urinalysison Leukocyte esterase Test strip Ql (U) Negative NEGATIVE [facility] Mucus Ql (Urine sed) TRACE Abnormal NONE SEEN [facility] Nitrite Ql (U) Negative NEGATIVE [facility] Protein Ql (U) TRACE mg/dL NEG/TRACE [facility] Leukocytes [#/volume] correc main for nucleated erythrocytes in Blood by Automated counon 12-19-2023 WBC corrected for nucl RBC Auto (Bld) [#/Vol] 13.9 10 3/uL High 4.0-11.0 [facility] Lymphocytes Auto (Bld) [#/Vo l]on 12-19-2023 Lymphocytes (Bld) [#/Vol] 2.3 10 3/uL 1.2-3.8 [facility] Lymphocytes/100 WBC Auto (Bl d)on 12-19-2023 Lymphocytes/100 WBC (Bld) 16.7 % Low 20.5-60.0 [facility] MCH Auto (RBC) [Entitic mass ]on 12-19-2023 MCH (RBC) [Entitic mass] 29.2 pg 26.7-34.0 [facility] MCHC Auto (RBC) [Mass/Vol]on 12-19-2023 MCHC (RBC) [Mass/Vol] 32.8 g/dL 29.9-35.2 [facility] MCV Auto (RBC) [Entitic vol] on 12-19-2023 MCV (RBC) [Entitic vol] 89.2 fL 81.0-99.0 [facility] Monocytes Auto (Bld) [#/Vol] on 12-19-2023 Monocytes (Bld) [#/Vol] 1.2 10 3/uL High 0.3-0.8 [facility] Monocytes/100 WBC Auto (Bld) on 12-19-2023 Monocytes/100 WBC (Bld) 8.8 % 1.7-12.0 [facility] Neutrophils Auto (Bld) [#/Vo l]on 12-19-2023 Neutrophils (Bld) [#/Vol] 10.1 10 3/uL High 1.4-6.5 [facility] Neutrophils/100 WBC Auto (Bl d)on 12-19-2023 Neutrophils/100 WBC (Bld) 72.6 % 43.0-75.0 [facility] No Panel Informationon 12-18 Urine Bacteria MODERATE #/HPF Abnormal NONE SEEN [facility] Urine Calcium Oxalate Crystals RARE [facility] Urine Culture Reflexed YES [facility] Urine Microscopic Review YES [facility] Urine Occult Blood LARGE Abnormal NEGATIVE [facility] Urine Other Casts SEEN #/LPF Abnormal NONE SEEN [facility] Urine Other Crystals Seen #/HPF Abnormal None Seen [facility] Urine RBC 75-100 #/HPF Abnormal 0-2 [facility] Urine Squamous Epithelial Cells FEW #/LPF Abnormal NONE/RARE [facility] Urine WBC 2-5 #/HPF Abnormal NONE SEEN [facility] Eosinophils # (Auto) 0.2 10 3/uL 0.0-0.7 [facility] Immature Granulocyte # (Auto) 0.04 10 3/uL High 0.00-0.03 [facility] Troponin I High Sensitivity 5.1 pg/mL 4.0-51.3 [facility] Comment on above: CUT-OFF POINTS [...] (Bld) [Entitic vol] 9.0 fL Low 9.5-13.5 [facility] Platelets Auto (Bld) [#/Vol] on 12-19-2023 Platelets (Bld) [#/Vol] 300 10 3/uL 150-450 [facility] Prothrombin time (PT)on 11-27 PT Coag (PPP) [Time] 10.1 s 9.0-11.6 [facility] RBC Auto (Bld) [#/Vol]on RBC (Bld) [#/Vol] 4.55 10 6/uL 4.20-5.40 [facility] Serum or plasma albumin/glob ulin mass ratioon 12-19-2023 Albumin/Globulin [Mass ratio] 1.4 {ratio} [facility] Serum or plasma anion gap de terminationon 12-19-2023 Anion gap [Moles/Vol] 13.4 mmol/L [facility] Yeast detection in urine sed iment by light microscopyon 12-19-2023 Yeast LM Ql (Urine sed) SEEN Abnormal NONE SEEN [facility] Basophils Auto (Bld) [#/Vol] on 12-06-2023 Basophils (Bld) [#/Vol] 0.1 10 3/uL 0.0-0.1 [facility] Basophils/100 WBC Auto (Bld) on 12-06-2023 Basophils/100 WBC (Bld) 1.0 % 0.2-2.0 [facility] Cholesterol in LDL Calc [Mas s/Vol]on 12-06-2023 Cholesterol in LDL [Mass/Vol] 105.0 mg/dL [facility] Comment on above: <100 mg/dl [id number] 0-129 mg/dl NEAR OR ABOVE [id number] mg/dl BORDERLINE [id number] mg/dl HIGH>190 mg/dl VERY HIGH Cholesterol in VLDL Calc [Ma ss/Vol]on 12-06-2023 Cholesterol in VLDL [Mass/Vol] 21.0 mg/dL [facility] Eosinophils/100 WBC Auto (Bl d)on 12-06-2023 Eosinophils/100 WBC (Bld) 3.7 % 0.9-7.0 [facility] Erythrocyte distribution wid th Auto (RBC) [Ratio]on 12-06-2023 Erythrocyte distribution width (RBC) [Ratio] 13.8 % 11.0-15.0 [facility] Estimated glomerular filtrat ion rate (GFR) non- Americanon 12-06-2023 GFR/1.73 sq M.predicted among non-blacks MDRD (S/P/Bld) [Vol rate/Area] mL/min/{1.73_m2} >=60 [facility] Globulin Calc (S) [Mass/Vol] on 12-06-2023 Globulin (S) [Mass/Vol] 3.0 g/dL [facility] Hematocrit Auto (Bld) [Volum e fraction]on 12-06-2023 Hematocrit (Bld) [Volume fraction] 41.8 % 36.0-48.0 [facility] Hemoglobin [Mass/volume] in Bloodon 12-06-2023 Hemoglobin (Bld) [Mass/Vol] 13.3 g/dL 12.0-16.0 [facility] Laboratory - Chemistry and C hemistry - challengeon 12-06-2023 Albumin [Mass/Vol] 3.8 g/dL 3.4-5.0 [facility] ALP [Catalytic activity/Vol] 110 U/L 46-116 [facility] ALT [Catalytic activity/Vol] 40 U/L 14-59 [facility] AST [Catalytic activity/Vol] 32 U/L 15-37 [facility] Bilirubin [Mass/Vol] 0.4 mg/dL 0.2-1.0 [facility] Calcium [Mass/Vol] 8.8 mg/dL 8.5-10.1 [facility] Chloride [Moles/Vol] 105 mmol/L 98-107 [facility] Cholesterol [Mass/Vol] 189 mg/dL <=200 [facility] Cholesterol in HDL [Mass/Vol] 63 mg/dL High 40-60 [facility] Comment on above: > or =60 mg/dl - LOW CARDIOVASCULAR RISK<40 mg/dl - HIGH CARDIOVASCULAR RISK CO2 [Moles/Vol] 32.2 mmol/L High 21.0-32.0 [facility] Creatinine [Mass/Vol] 0.66 mg/dL 0.55-1.02 [facility] GFR/1.73 sq M.predicted MDRD (S/P/Bld) [Vol rate/Area] mL/min/{1.73_m2} >=60 [facility] Glucose [Mass/Vol] 91 mg/dL 74-106 [facility] Potassium [Moles/Vol] 4.1 mmol/L 3.5-5.1 [facility] Protein [Mass/Vol] 6.8 g/dL 6.4-8.2 [facility] Sodium [Moles/Vol] 143 mmol/L 136-145 [facility] Triglyceride [Mass/Vol] 105 mg/dL <=150 [facility] TSH Qn 2.954 m[IU]/L 0.358-3.74 0 [facility] Urea nitrogen [Mass/Vol] 11.0 mg/dL 7.0-18.0 [facility] Urea nitrogen/Creatinine [Mass ratio] 16.7 mg/mg [facility] Laboratory - Hematology and Cell countson 12-06-2023 Immature granulocytes/100 WBC (Bld) 0.3 % 0.0-0.5 [facility] Leukocytes [#/volume] correc main for nucleated erythrocytes in Blood by Automated counon 12-06-2023 WBC corrected for nucl RBC Auto (Bld) [#/Vol] 6.8 10 3/uL 4.0-11.0 [facility] Lymphocytes Auto (Bld) [#/Vo l]on 12-06-2023 Lymphocytes (Bld) [#/Vol] 1.8 10 3/uL 1.2-3.8 [facility] Lymphocytes/100 WBC Auto (Bl d)on 12-06-2023 Lymphocytes/100 WBC (Bld) 26.8 % 20.5-60.0 [facility] MCH Auto (RBC) [Entitic mass ]on 12-06-2023 MCH (RBC) [Entitic mass] 29.2 pg 26.7-34.0 [facility] MCHC Auto (RBC) [Mass/Vol]on 12-06-2023 MCHC (RBC) [Mass/Vol] 31.8 g/dL 29.9-35.2 [facility] MCV Auto (RBC) [Entitic vol] on 12-06-2023 MCV (RBC) [Entitic vol] 91.7 fL 81.0-99.0 [facility] Monocytes Auto (Bld) [#/Vol] on 12-06-2023 Monocytes (Bld) [#/Vol] 0.5 10 3/uL 0.3-0.8 [facility] Monocytes/100 WBC Auto (Bld) on 12-06-2023 Monocytes/100 WBC (Bld) 7.9 % 1.7-12.0 [facility] Neutrophils Auto (Bld) [#/Vo l]on 12-06-2023 Neutrophils (Bld) [#/Vol] 4.1 10 3/uL 1.4-6.5 [facility] Neutrophils/100 WBC Auto (Bl d)on 12-06-2023 Neutrophils/100 WBC (Bld) 60.3 % 43.0-75.0 [facility] No Panel Informationon 12-05 Eosinophils # (Auto) 0.3 10 3/uL 0.0-0.7 [facility] Immature Granulocyte # (Auto) 0.02 10 3/uL 0.00-0.03 [facility] Platelet mean volume Auto (B ld) [Entitic vol]on 12-06-2023 Platelet mean volume (Bld) [Entitic vol] 8.7 fL Low 9.5-13.5 [facility] Platelets Auto (Bld) [#/Vol] on 12-06-2023 Platelets (Bld) [#/Vol] 291 10 3/uL 150-450 [facility] RBC Auto (Bld) [#/Vol]on RBC (Bld) [#/Vol] 4.56 10 6/uL 4.20-5.40 [facility] Serum or plasma albumin/glob ulin mass ratioon 12-06-2023 Albumin/Globulin [Mass ratio] 1.3 {ratio} [facility] Serum or plasma anion gap de terminationon 12-06-2023 Anion gap [Moles/Vol] 9.9 mmol/L [facility] Serum or plasma total choles terol/high density lipoprotein (HDL) cholesterol mass amador 12-06-2023 Cholesterol.total/Ch olesterol in HDL [Mass ratio] 3.0 {ratio} [facility] Comment on above: 3.3 - 4.4 LOW RISK4. 4 - 7.1 AVERAGE RISK7.1 - 11.0 MODERATE RISK>11.0 HIGH RISK A1C with Estimated Average G luon 11-19-2023 Glucose [Mass/Vol] 123 mg/dL Normal [facility] Comment on above: Result Comment: PERF ORMED BY: [place] [address] PATHOLOGIST PEST CONTROLLER KOMAL COFFMAN M.D. Performed By: #### H GB, ALB, [id number], A1C WTH eA, CUMRSA #### [address] #### NICOTINE #### [facility] , Albumin Levelon 11-19-2023 Albumin [Mass/Vol] 4.6 g/dL Normal 3.5-5.7 [facility] Comment on above: Performed By: #### H GB, ALB, [id number], A1C WTH eA, CUMRSA #### [facility] [address] [place] [address] [place] #### NICOTINE #### [facility] , Albumin [Mass/volume] in Ser um or Plasma by Bromocresol green (BCG) dye binding methoOrdered By: Finn Ortez on 11-19-2023 Albumin BCG dye [Mass/Vol] 4.6 g/dL 3.5-5.7 [facility] Cotinine [Mass/volume] in Se rum or PlasmaOrdered By: Finn Ortez on 11-19-2023 Cotinine [Mass/Vol] <1.0 ng/mL . [facility] Comment on above: This test was develo ped and its performance characteristicsdetermined by [employer]. It has not been cleared orapproved by the Food and Drug Administration.Cotinine levels greater than 20.0 are consistent with theuse of tobacco or tobacco cessation products.Performed at: [address] [id number] Director: Vinh Almeida MD, Phone: [phone] Glucose mean value [Mass/vol ume] in Blood Estimated from glycated hemoglobinOrdered By: Finn Ortez on 11-19-2023 Average glucose Estimated from glycated hemoglobin (Bld) [Mass/Vol] 123 mg/dL [facility] Hemoglobin A1c percentageOrd ered By: Finn Ortez on 11-19-2023 HbA1c (Bld) [Mass fraction] 5.9 % High 4.3-5.6 [facility] Comment on above: Increased risk for d iabetes: 5.7 - 6.4diabetes: >6.4glycemic control for adults with diabetes: <7.0 Result Comment: Incr eased risk for diabetes: 5.7 - 6.4 diabetes: >6.4 glycemic control for adults with diabetes: <7.0 Performed By: #### H GB, ALB, [id number], A1C WTH SEBASTIAN Bacon #### [facility] [address] [place] [id number] [place] #### NICOTINE #### [facility] , Hemoglobin [Mass/volume] in BloodOrdered By: Finn Ortez on 11-19-2023 Hemoglobin (Bld) [Mass/Vol] 13.6 g/dL Normal 11.8-15.4 [facility] Comment on above: Result Comment: PERF ORMED BY: [place] [address] PATHOLOGIST PEST CONTROLLER KOMAL COFFMAN M.D. Performed By: #### H GB, ALB, [id number], A1C WTH eA, CUMRSA #### [address] #### NICOTINE #### [facility] , MRSA Cultureon 11-19-2023 MRSA Culture MRSA Culture Results No MRSA Isolated 2 Days PERFORMED BY: [place] [address] PATHOLOGIST PEST CONTROLLER KOMAL COFFMAN M.D. Normal [facility] Comment on above: Performed By: #### H GB, ALB, [id number], A1C WTH eA, CUMRSA #### [place] [address] [place] #### NICOTINE #### [facility] , Nicotine [Mass/volume] in Se rum or PlasmaOrdered By: Finn Ortez on 11-19-2023 Nicotine [Mass/Vol] <1.0 ng/mL . [facility] Comment on above: This test was develo ped and its performance characteristicsdetermined by [employer]. It has not been cleared orapproved by the Food and Drug Administration.Nicotine levels greater than 2.0 are consistent with theuse of tobacco or tobacco cessation products. Nicotine/Cotinine Bloodon Cotinine, Blood <1.0 Normal . [facility] Comment on above: Result Comment: This test was developed and its performance characteristics determined by [employer]. It has not been cleared or approved by the Food and Drug Administration. Cotinine levels greater than 20.0 are consistent with the use of tobacco or tobacco cessation products. Performed at: [address] [id number] [employer] Associate: Vinh Almeida MD, Phone: [phone] PERFORMED BY: [place] [id number] PATHOLOGIST PEST CONTROLLER KOMAL COFFMAN M.D. Performed By: #### H GB, ALB, [id number], A1C WTH eA, CUMRSA #### [place] [address] [place] #### NICOTINE #### [facility] , Nicotine, Blood <1.0 Normal . [facility] Comment on above: Result Comment: This test was developed and its performance characteristics determined by [facility]. It has not been cleared or approved by the Food and Drug Administration. Nicotine levels greater than 2.0 are consistent with the use of tobacco or tobacco cessation products. Performed By: #### H GB, ALB, [id number], A1C WTH eA, CUMRSA #### [place] [address] [place] #### NICOTINE #### [facility] , Vitamin D 25 Hydroxy Totalon 11-19-2023 Vitamin D 25 Hydroxy Total 51.6 ng/mL Normal 30-100 [facility] Comment on above: Result Comment: EDIE MIN D STATUS 25(OH)VITAMIN D RANGE (ng/mL) Deficient <20 Insufficient 20 to <30 Sufficient 30 to 100 Reference: Giovanny MF,Radha NC, Gisela RAMAN, et al. Evaluation,treatment, and prevention of vitamin D deficiency; an Endocrine Society clinical practice guideline. JCEM. 2010; 96(7):1911-30. PERFORMED BY: [place] [address] PATHOLOGIST PEST CONTROLLER KOMAL COFFMAN M.D. Performed By: #### H GB, ALB, [id number], A1C WTH eA, CUMRSA #### [place] [address] [place] #### NICOTINE #### [facility] , Vitamin D+Metabolites [Mass/ volume] in Serum or PlasmaOrdered By: Finn Ortez on 11-19-2023 Vitamin D+Metabolites [Mass/Vol] 51.6 ng/mL 30-100 [facility] Comment on above: VITAMIN D [...] isol Org specific cx Ql (Unsp spec) [facility] Bilirubin Test strip Ql (U)O rdered By: Karen Cardoso on 09-15-2023 Bilirubin Ql (U) Negative Negative [facility] Color Auto (U)Ordered By: José Cardoso on 09-15-2023 Color (U) Yellow Yellow [facility] Ketones Auto test strip (U) [Mass/Vol]Ordered By: Karen Cardoso on 09-15-2023 Ketones (U) [Mass/Vol] Trace High Negative [facility] Nitrite Test strip Ql (U)Ord ered By: Karen Cardoso on 09-15-2023 Nitrite Ql (U) Negative Negative [facility] Protein Auto test strip (U) [Mass/Vol]Ordered By: Karen Cardoso on 09-15-2023 Protein (U) [Mass/Vol] Negative Negative [facility] Specific gravity Auto test s trip (U) [Rel density]Ordered By: Karen Cardoso on 09-15-2023 Specific gravity (U) [Rel density] 1.007 1.001-1.03 0 [facility] Urine clarity by refractomet ry automatedOrdered By: Karen Cardoso on 09-15-2023 Clarity Refractometry automated (U) Clear Clear [facility] Urine culture routineOrdered By: Karen Cardoso on 09-15-2023 Bacteria identified Cx Nom (U) 2 Days [facility] Urine glucose measurement by automated test strip (mass/volume)Ordered By: Karen Cardoso on 09-15-2023 Glucose Auto test strip (U) [Mass/Vol] Normal mg/dL Normal [facility] Urine hemoglobin detection b y automated test stripOrdered By: Karen Cardoso on 09-15-2023 Hemoglobin Auto test strip Ql (U) 2+ High Negative [facility] Urine leukocyte esterase det ection by automated test stripOrdered By: Karen Cardoso on 09-15-2023 Leukocyte esterase Auto test strip Ql (U) Negative Negative [facility] Urobilinogen Auto test strip (U) [Mass/Vol]Ordered By: Karen Cardoso on 09-15-2023 Urobilinogen (U) [Mass/Vol] Normal mg/dL Normal [facility] pH Auto test strip (U)Ordere d By: Karen Cardoso on 09-15-2023 pH (U) 5.5 [pH] 5.0-9.0 [facility] Basophils Auto (Bld) [#/Vol] on 06-23-2023 Basophils (Bld) [#/Vol] 0.0 10 3/uL 0.0-0.1 [facility] Basophils/100 WBC Auto (Bld) on 06-23-2023 Basophils/100 WBC (Bld) 0.4 % 0.2-2.0 [facility] Cholesterol in LDL Calc [Mas s/Vol]on 06-23-2023 Cholesterol in LDL [Mass/Vol] 104.0 mg/dL [facility] Comment on above: <100 mg/dl [id number] 0-129 mg/dl NEAR OR ABOVE [id number] mg/dl BORDERLINE [id number] mg/dl HIGH>190 mg/dl VERY HIGH Cholesterol in VLDL Calc [Ma ss/Vol]on 06-23-2023 Cholesterol in VLDL [Mass/Vol] 19.8 mg/dL [facility] Eosinophils/100 WBC Auto (Bl d)on 06-23-2023 Eosinophils/100 WBC (Bld) 1.8 % 0.9-7.0 [facility] Erythrocyte distribution wid th Auto (RBC) [Ratio]on 06-23-2023 Erythrocyte distribution width (RBC) [Ratio] 14.1 % 11.0-15.0 [facility] Estimated glomerular filtrat ion rate (GFR) non- Americanon 06-23-2023 GFR/1.73 sq M.predicted among non-blacks MDRD (S/P/Bld) [Vol rate/Area] mL/min/{1.73_m2} >=60 [facility] Globulin Calc (S) [Mass/Vol] on 06-23-2023 Globulin (S) [Mass/Vol] 3.6 g/dL [facility] Glucose mean value [Mass/vol ume] in Blood Estimated from glycated hemoglobinon 06-23-2023 Average glucose Estimated from glycated hemoglobin (Bld) [Mass/Vol] 114 mg/dL [facility] Hematocrit Auto (Bld) [Volum e fraction]on 06-23-2023 Hematocrit (Bld) [Volume fraction] 44.3 % 36.0-48.0 [facility] Hemoglobin [Mass/volume] in Bloodon 06-23-2023 Hemoglobin (Bld) [Mass/Vol] 14.0 g/dL 12.0-16.0 [facility] Laboratory - Chemistry and C hemistry - challengeon 06-23-2023 Albumin [Mass/Vol] 3.7 g/dL 3.4-5.0 [facility] ALP [Catalytic activity/Vol] 88 U/L 46-116 [facility] ALT [Catalytic activity/Vol] 29 U/L 14-59 [facility] AST [Catalytic activity/Vol] 18 U/L 15-37 [facility] Bilirubin [Mass/Vol] 0.6 mg/dL 0.2-1.0 [facility] Calcium [Mass/Vol] 9.1 mg/dL 8.5-10.1 [facility] Chloride [Moles/Vol] 104 mmol/L 98-107 [facility] Cholesterol [Mass/Vol] 196 mg/dL <=200 [facility] Cholesterol in HDL [Mass/Vol] 73 mg/dL 40-60 [facility] Comment on above: > or =60 mg/dl - LOW CARDIOVASCULAR RISK<40 mg/dl - HIGH CARDIOVASCULAR RISK CO2 [Moles/Vol] 30.4 mmol/L 21.0-32.0 [facility] Creatinine [Mass/Vol] 0.67 mg/dL 0.55-1.02 [facility] GFR/1.73 sq M.predicted MDRD (S/P/Bld) [Vol rate/Area] mL/min/{1.73_m2} >=60 [facility] Glucose [Mass/Vol] 97 mg/dL 74-106 [facility] Potassium [Moles/Vol] 3.8 mmol/L 3.5-5.1 [facility] Protein [Mass/Vol] 7.3 g/dL 6.4-8.2 [facility] Sodium [Moles/Vol] 145 mmol/L 136-145 [facility] Triglyceride [Mass/Vol] 99 mg/dL <=150 [facility] Urea nitrogen [Mass/Vol] 13.0 mg/dL 7.0-18.0 [facility] Urea nitrogen/Creatinine [Mass ratio] 19.4 mg/mg [facility] Laboratory - Hematology and Cell countson 06-23-2023 HbA1c (Bld) [Mass fraction] 5.6 % 4.5-6.2 [facility] Comment on above: ADA RECOMMENDED LIMI T 4.0 - 6.0ADA THERAPEUTIC TARGET < 7.0ACTION SUGGESTED> 7.0 Immature granulocytes/100 WBC (Bld) 0.8 % 0.0-0.5 [facility] Leukocytes [#/volume] correc main for nucleated erythrocytes in Blood by Automated counon 06-23-2023 WBC corrected for nucl RBC Auto (Bld) [#/Vol] 9.6 10 3/uL 4.0-11.0 [facility] Lymphocytes Auto (Bld) [#/Vo l]on 06-23-2023 Lymphocytes (Bld) [#/Vol] 1.8 10 3/uL 1.2-3.8 [facility] Lymphocytes/100 WBC Auto (Bl d)on 06-23-2023 Lymphocytes/100 WBC (Bld) 18.7 % 20.5-60.0 [facility] MCH Auto (RBC) [Entitic mass ]on 06-23-2023 MCH (RBC) [Entitic mass] 28.4 pg 26.7-34.0 [facility] MCHC Auto (RBC) [Mass/Vol]on 06-23-2023 MCHC (RBC) [Mass/Vol] 31.6 g/dL 29.9-35.2 [facility] MCV Auto (RBC) [Entitic vol] on 06-23-2023 MCV (RBC) [Entitic vol] 89.9 fL 81.0-99.0 [facility] Monocytes Auto (Bld) [#/Vol] on 06-23-2023 Monocytes (Bld) [#/Vol] 0.8 10 3/uL 0.3-0.8 [facility] Monocytes/100 WBC Auto (Bld) on 06-23-2023 Monocytes/100 WBC (Bld) 7.9 % 1.7-12.0 [facility] Neutrophils Auto (Bld) [#/Vo l]on 06-23-2023 Neutrophils (Bld) [#/Vol] 6.8 10 3/uL 1.4-6.5 [facility] Neutrophils/100 WBC Auto (Bl d)on 06-23-2023 Neutrophils/100 WBC (Bld) 70.4 % 43.0-75.0 [facility] No Panel Informationon 06-23 Eosinophils # (Auto) 0.2 10 3/uL 0.0-0.7 [facility] Immature Granulocyte # (Auto) 0.08 10 3/uL 0.00-0.03 [facility] Platelet mean volume Auto (B ld) [Entitic vol]on 06-23-2023 Platelet mean volume (Bld) [Entitic vol] 8.6 fL 9.5-13.5 [facility] Platelets Auto (Bld) [#/Vol] on 06-23-2023 Platelets (Bld) [#/Vol] 362 10 3/uL 150-450 [facility] RBC Auto (Bld) [#/Vol]on RBC (Bld) [#/Vol] 4.93 10 6/uL 4.20-5.40 [facility] Serum or plasma albumin/glob ulin mass ratioon 06-23-2023 Albumin/Globulin [Mass ratio] 1.0 {ratio} [facility] Serum or plasma anion gap de terminationon 06-23-2023 Anion gap [Moles/Vol] 14.4 mmol/L [facility] Serum or plasma total choles terol/high density lipoprotein (HDL) cholesterol mass amador 06-23-2023 Cholesterol.total/Ch olesterol in HDL [Mass ratio] 2.7 {ratio} [facility] Comment on above: 3.3 - [...] DONYA BIGGS Date: 2022-08-27 17:05 Normal [facility] CT HEAD WO CONon 08-27-2022 CT [...] ALMA FRIEDMAN Date: 2022-08-27 17:02 Normal [facility] XR HIP LT 2 3V W [...] KAREN CANO Date: 2022-08-27 17:40 Normal [facility] XR hip RT min 2V(w/wo pelvis )*on 07-12-2022 XR hip RT min 2V(w/wo pelvis)* [facility] Other XR hip RT min 2V(w/wo pelvis)* [facility] Other XR hip RT min 2V(w/wo pelvis)* [address] [place] [address] [facility] Other XR hip RT min 2V(w/wo pelvis)* [place] [address] [employer] Other XR hip RT min 2V(w/wo pelvis)* XRay Report [facility] Other XR hip RT min 2V(w/wo pelvis)* Signed [facility] Other XR hip RT min 2V(w/wo pelvis)* Patient: Antonino Torres MR#: [id number] [facility] Other XR hip RT min 2V(w/wo pelvis)* 4840 [facility] Other XR hip RT min 2V(w/wo pelvis)* : 1955 Acct:[id number] [facility] Other XR hip RT min 2V(w/wo pelvis)* Age/Sex: 66 / F ADM Date: 07/12/22 [facility] Other XR hip RT min 2V(w/wo pelvis)* Loc: [facility] Room: Type: [facility] Other XR hip RT min 2V(w/wo pelvis)* Attending Dr: Finn Ortez II, MD [facility] Other XR hip RT min 2V(w/wo pelvis)* Copies to: Finn Ortez MD [facility] Other XR hip RT min 2V(w/wo pelvis)* Ordering Provider: Finn Ortez MD [facility] Other XR hip RT min 2V(w/wo pelvis)* Date of Service: 07/12/22 [facility] Other XR hip RT min 2V(w/wo pelvis)* XR/XR hip RT min 2V(w/wo pelvis)*: Right hip pain [facility] Other XR hip RT min 2V(w/wo pelvis)* XR hip RT min 2V(w/wo pelvis)* 07/12/2022 10:08 AM [facility] Other XR hip RT min 2V(w/wo pelvis)* SIGNS AND SYMPTOMS: Right hip pain, right inguinal pain [facility] Other XR hip RT min 2V(w/wo pelvis)* PROTOCOL: Frontal radiograph the pelvis with crosstable lateral view of the right hip [facility] Other XR hip RT min 2V(w/wo pelvis)* COMPARISON: None [facility] Other XR hip RT min 2V(w/wo pelvis)* FINDINGS: [facility] Other XR hip RT min 2V(w/wo pelvis)* 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 There is no hardware complication or malalignment. [facility] Other XR hip RT min 2V(w/wo pelvis)* The bony ring of the pelvis is grossly intact. Degenerative changes are noted in the lumbar spine [facility] Other XR hip RT min 2V(w/wo pelvis)* and sacroiliac joints. There is enthesophyte formation at the greater trochanters and iliac wings. [facility] Other XR hip RT min 2V(w/wo pelvis)* There is mild narrowing of the right hip joint space. [facility] Other XR hip RT min 2V(w/wo pelvis)* XR/XR hip RT min 2V(w/wo pelvis)* [facility] Other XR hip RT min 2V(w/wo pelvis)* IMPRESSION: [facility] Other XR hip RT min 2V(w/wo pelvis)* No fracture or dislocation. Nor [employer] Other XR hip RT min 2V(w/wo pelvis)* Multifocal degenerative change is noted, as above. [facility] Other XR hip RT min 2V(w/wo pelvis)* Impression dictated by: Justen Jenkins M.D.07/12/2022 1:35 PM [facility] Other XR hip RT min 2V(w/wo pelvis)* Dictation Location: [place] [address] [facility] Other XR hip RT min 2V(w/wo pelvis)* Transcribed By: SAGAR 07/12/22 [facility] Other XR hip RT min 2V(w/wo pelvis)* Dictated By: Justen Jenkins II, MD 07/12/22 [facility] Other XR hip RT min 2V(w/wo pelvis)* Signed By: [facility] Other XR hip RT min 2V(w/wo pelvis)* 07/12/22 [facility] Other CBC AUTO DIFFon 03-12-2022 BASO # 0.1 103/ul Normal 0.0-0.1 [facility] Comment on above: Performed By: #### D ATCBC #### [facility] [address] [place] [address] Dr. David Phillips Basophils/100 WBC (Bld) 1.0 % Normal 0.2-2.0 [facility] Comment on above: Performed By: #### D ATCBC #### [facility] [address] [place] [address] Dr. David Phillips EO # 0.2 103/ul Normal 0.0-0.7 [facility] Comment on above: Performed By: #### D ATCBC #### [facility] [address] [place] [address] Dr. David Phillips Eosinophils/100 WBC (Bld) 3.7 % Normal 0.9-7.0 [facility] Comment on above: Performed By: #### D ATCBC #### [facility] [address] [place] [address] Dr. David Phillips Erythrocyte distribution width (RBC) [Ratio] 13.1 % Normal 11.0-15.0 [facility] Comment on above: Performed By: #### D ATCBC #### [facility] [address] [place] [address] Dr. David Phillips Hematocrit (Bld) [Volume fraction] 41.6 % Normal 36.0-48.0 [facility] Comment on above: Performed By: #### D ATCBC #### [facility] [address] [place] [address] Dr. David Phillips Hemoglobin (Bld) [Mass/Vol] 13.6 g/dL Normal 12.0-16.0 [facility] Comment on above: Performed By: #### D ATCBC #### [facility] [address] [place] [address] Dr. David Phillips IG # 0.01 10e3/ul Normal 0.00-0.03 [facility] Comment on above: Performed By: #### D ATCBC #### [facility] [address] [place] [address] Dr. David Phillips IG % 0.2 % Normal 0.0-0.5 [facility] Comment on above: Performed By: #### D ATCBC #### [facility] [address] [place] [address] Dr. David Phillips LYMPH # 1.7 103/ul Normal 1.2-3.8 [facility] Comment on above: Performed By: #### D ATCBC #### [facility] [address] [place] [address] Dr. David Phillips Lymphocytes/100 WBC (Bld) 29.0 % Normal 20.5-60.0 [facility] Comment on above: Performed By: #### D ATCBC #### [facility] [address] [place] [address] Dr. David Phillips MCH (RBC) [Entitic mass] 28.9 pg Normal 26.7-34.0 [facility] Comment on above: Performed By: #### D ATCBC #### [facility] [address] [place] [address] Dr. David Phillips MCHC (RBC) [Mass/Vol] 32.7 g/dL Normal 29.9-35.2 [facility] Comment on above: Performed By: #### D ATCBC #### [facility] [address] [place] [address] Dr. David Phillips MCV (RBC) [Entitic vol] 88.3 fL Normal 81.0-99.0 [facility] Comment on above: Performed By: #### D ATCBC #### [facility] [address] [place] [address] Dr. David Phillips MONO # 0.5 103/ul Normal 0.3-0.8 [facility] Comment on above: Performed By: #### D ATCBC #### [facility] [address] [place] [address] Dr. David Phillips Monocytes/100 WBC (Bld) 7.7 % Normal 1.7-12.0 [facility] Comment on above: Performed By: #### D ATCBC #### [facility] [address] [place] [address] Dr. David Phillips NEUT # 3.4 103/ul Normal 1.4-6.5 [facility] Comment on above: Performed By: #### D ATCBC #### [facility] [address] [place] [address] [address] David Phillips Neutrophils/100 WBC (Bld) 58.4 % Normal 43.0-75.0 [facility] Comment on above: Performed By: #### D ATCBC #### [facility] [address] [place] [address] [address] David Phillips Platelet mean volume (Bld) [Entitic vol] 9.0 fL Critically low 9.5-13.5 [facility] Comment on above: Performed By: #### D ATCBC #### [facility] [address] [place] [address] Dr. David Phillips PLT 273 103/ul Normal 150-450 [facility] Comment on above: Performed By: #### D ATCBC #### [facility] [address] [place] [address] Dr. David Phillips RBC 4.71 106/ul Normal 4.20-5.40 [facility] Comment on above: Performed By: #### D ATCBC #### [facility] [address] [place] [address] Dr. David Phillips WBC 5.9 103/ul Normal 4.0-11.0 [facility] Comment on above: Performed By: #### D ATCBC #### [facility] [address] [place] [address] Dr. David Phillips BRIANNA- BMP WITH LIPIDon 2021 Anion gap [Moles/Vol] 6.8 mmol/L Normal [facility] Comment on above: Performed By: #### D ATCBC #### [facility] [address] [place] [address] Dr. David Phlilips Calcium [Mass/Vol] 8.6 mg/dL Normal 8.5-10.1 [facility] Comment on above: Performed By: #### D ATCBC #### [facility] [address] [place] [address] Dr. David Phillips Chloride [Moles/Vol] 105 mmol/L Normal 98-107 [facility] Comment on above: Performed By: #### D ATCBC #### [facility] [address] [place] [address] [address] David Phillips Cholesterol [Mass/Vol] 175 mg/dL Normal <=200 [facility] Comment on above: Performed By: #### D ATCBC #### [facility] [address] [place] [address] [address] David Phillips Cholesterol in HDL [Mass/Vol] 68 mg/dL Critically high 40-60 [facility] Comment on above: Performed By: #### D ATCBC #### [facility] [address] [place] [address] [address] David Phillips Cholesterol in LDL [Mass/Vol] 96.8 mg/dL Normal [facility] Comment on above: Performed By: #### D ATCBC #### [facility] [address] [place] [address] [address] David Phillips CO2 [Moles/Vol] 32.2 mmol/L Critically high 21.0-32.0 [facility] Comment on above: Performed By: #### D ATCBC #### [facility] [address] [place] [address] [address] David Phillips Creatinine [Mass/Vol] 0.63 mg/dL Normal 0.55-1.02 [facility] Comment on above: Performed By: #### D ATCBC #### [facility] [address] [place] [address] [address] David Phillips EGFR-AF BOTSWANAN >60 Normal >=60 [facility] Comment on above: Performed By: #### D ATCBC #### [facility] [address] [place] [address] [address] David Phillips EGFR-NON AF BOTSWANAN >60 Normal >=60 [facility] Comment on above: Performed By: #### D ATCBC #### [facility] [address] [place] [address] [address] David Phillips Glucose [Mass/Vol] 97 mg/dL Normal 74-106 [facility] Comment on above: Performed By: #### D ATCBC #### [facility] [address] [place] [address] [address] David Phillips HDL NORMAL > or = 60 mg/dl - LO W CARDIOVASCULAR RISK <40 mg/dl - HIGH CARDIOVASCULAR RISK Normal [facility] Comment on above: Performed By: #### D ATCBC #### [facility] [address] [place] [address] [address] David Phillips LDL CALC NORMAL SEE BELOW Normal [facility] Comment on above: Result Comment: <100 mg/dl OPTIMAL 100 - 129 mg/dl NEAR OR ABOVE OPTIMAL 130 - 159 mg/dl BORDERLINE HIGH 160 - 189 mg/dl HIGH >190 mg/dl VERY HIGH Performed By: #### D ATCBC #### [facility] [address] [place] [address] [address] David Phillips Potassium [Moles/Vol] 4.0 mmol/L Normal 3.5-5.1 [facility] Comment on above: Performed By: #### D ATCBC #### [facility] [address] [address] [address] David Phillips Sodium [Moles/Vol] 140 mmol/L Normal 136-145 [facility] Comment on above: Performed By: #### D ATCBC #### [facility] [address] [address] [address] David Phillips Triglyceride [Mass/Vol] 51 mg/dL Normal <=150 [facility] Comment on above: Performed By: #### D ATCBC #### [facility] [address] [address] [address] David Phillips Urea nitrogen [Mass/Vol] 17.0 mg/dL Normal 7.0-18.0 [facility] Comment on above: Performed By: #### D ATCBC #### [facility] [address] [address] [address] David Phillips Urea nitrogen/Creatinine [Mass ratio] 27.0 mg/mg Normal [facility] Comment on above: Performed By: #### D ATCBC #### [facility] [address] [place] [address] [address] David Phillips VLDL CALC 10.2 mg/dL Normal [facility] Comment on above: Performed By: #### D ATCBC #### [facility] [address] [place] [address] Dr. David Phillips CBC AUTO DIFFon 02-07-2022 BASO # 0.1 103/ul Normal 0.0-0.1 [facility] Comment on above: Performed By: #### D ATCBC #### [facility] [address] [place] [address] Dr. David Phillips Basophils/100 WBC (Bld) 0.5 % Normal 0.2-2.0 [facility] Comment on above: Performed By: #### D ATCBC #### [facility] [address] [place] [address] Dr. David Phillips EO # 0.2 103/ul Normal 0.0-0.7 [facility] Comment on above: Performed By: #### D ATCBC #### [facility] [address] [place] [address] Dr. David Phillips Eosinophils/100 WBC (Bld) 1.4 % Normal 0.9-7.0 [facility] Comment on above: Performed By: #### D ATCBC #### [facility] [address] [place] [address] Dr. David Phillips Erythrocyte distribution width (RBC) [Ratio] 13.2 % Normal 11.0-15.0 [facility] Comment on above: Performed By: #### D ATCBC #### [facility] Laboratory [address] [place] [address] Dr. David Phillips Hematocrit (Bld) [Volume fraction] 42.7 % Normal 36.0-48.0 [facility] Comment on above: Performed By: #### D ATCBC #### [facility] Laboratory [address] [place] [address] Dr. David Phillips Hemoglobin (Bld) [Mass/Vol] 13.7 g/dL Normal 12.0-16.0 [facility] Comment on above: Performed By: #### D ATCBC #### [facility] Laboratory [address] [address] [address] David Phillips IG # 0.04 10e3/ul Critically high 0.00-0.03 [facility] Comment on above: Performed By: #### D ATCBC #### [facility] Laboratory [address] [address] [address] David Phillips IG % 0.4 % Normal 0.0-0.5 [facility] Comment on above: Performed By: #### D ATCBC #### [facility] Laboratory [address] [address] [address] David Phillips LYMPH # 1.5 103/ul Normal 1.2-3.8 [facility] Comment on above: Performed By: #### D ATCBC #### [facility] Laboratory [address] [place] [address] Dr. David Phillips Lymphocytes/100 WBC (Bld) 12.9 % Critically low 20.5-60.0 [facility] Comment on above: Performed By: #### D ATCBC #### [facility] [address] [place] [address] Dr. David Phillips MCH (RBC) [Entitic mass] 29.0 pg Normal 26.7-34.0 [facility] Comment on above: Performed By: #### D ATCBC #### [facility] Laboratory [address] [place] [address] Dr. David Phillips MCHC (RBC) [Mass/Vol] 32.1 g/dL Normal 29.9-35.2 [facility] Comment on above: Performed By: #### D ATCBC #### [facility] Laboratory [address] [place] [address] Dr. David Phillips MCV (RBC) [Entitic vol] 90.5 fL Normal 81.0-99.0 [facility] Comment on above: Performed By: #### D ATCBC #### [facility] [address] [place] [address] Dr. David Phillips MONO # 0.9 103/ul Critically high 0.3-0.8 [facility] Comment on above: Performed By: #### D ATCBC #### [facility] Laboratory [address] [address] [address] David Phillips Monocytes/100 WBC (Bld) 7.5 % Normal 1.7-12.0 [facility] Comment on above: Performed By: #### D ATCBC #### [facility] Laboratory [address] [address] [address] David Phillips NEUT # 8.8 103/ul Critically high 1.4-6.5 [facility] Comment on above: Performed By: #### D ATCBC #### [facility] [address] [place] [address] Dr. David Phillips Neutrophils/100 WBC (Bld) 77.3 % Critically high 43.0-75.0 [facility] Comment on above: Performed By: #### D ATCBC #### [facility] [address] [place] [address] Dr. David Phillips Platelet mean volume (Bld) [Entitic vol] 8.9 fL Critically low 9.5-13.5 [facility] Comment on above: Performed By: #### D ATCBC #### [facility] [address] [place] [address] Dr. David Phillips PLT 283 103/ul Normal 150-450 [facility] Comment on above: Performed By: #### D ATCBC #### [facility] [address] [place] [address] Dr. David Phillips RBC 4.72 106/ul Normal 4.20-5.40 [facility] Comment on above: Performed By: #### D ATCBC #### [facility] [address] [place] [address] Dr. David Phillips WBC 11.4 103/ul Critically high 4.0-11.0 [facility] Comment on above: Performed By: #### D ATCBC #### [facility] Laboratory [address] [place] [address] Dr. David Phillips BRIANNA- BMP WITH LIPIDon 2021 Anion gap [Moles/Vol] 9.1 mmol/L Normal [facility] Comment on above: Performed By: #### D ATBMP #### [facility] [address] [address] [address] David Phillips Calcium [Mass/Vol] 9.0 mg/dL Normal 8.5-10.1 [facility] Comment on above: Performed By: #### D ATBMP #### [facility] Laboratory [address] [address] [address] David Phillips Chloride [Moles/Vol] 103 mmol/L Normal 98-107 [facility] Comment on above: Performed By: #### D ATBMP #### [facility] [address] [address] [address] David Phillips Cholesterol [Mass/Vol] 183 mg/dL Normal <=200 [facility] Comment on above: Performed By: #### D ATBMP #### [facility] [address] [address] [address] David Phillips Cholesterol in HDL [Mass/Vol] 75 mg/dL Critically high 40-60 [facility] Comment on above: Performed By: #### D ATBMP #### [facility] [address] [address] [address] David Phillips Cholesterol in LDL [Mass/Vol] 95.2 mg/dL Normal [facility] Comment on above: Performed By: #### D ATBMP #### [facility] [address] [address] [address] David Phillips CO2 [Moles/Vol] 31.1 mmol/L Normal 21.0-32.0 [facility] Comment on above: Performed By: #### D ATBMP #### [facility] [address] [address] [address] David Phillips Creatinine [Mass/Vol] 0.71 mg/dL Normal 0.55-1.02 [facility] Comment on above: Performed By: #### D ATBMP #### [facility] [address] [address] [address] David Phillips EGFR-AF [place] >60 Normal >=60 [facility] Comment on above: Performed By: #### D ATBMP #### [facility] [address] [address] [address] David Phillips EGFR-NON AF [place] >60 Normal >=60 [facility] Comment on above: Performed By: #### D ATBMP #### [facility] [address] [address] [address] David Phillips Glucose [Mass/Vol] 108 mg/dL Critically high 74-106 [facility] Comment on above: Performed By: #### D ATBMP #### [facility] [address] [address] [address] David Phillips HDL NORMAL > or = 60 mg/dl - LO W CARDIOVASCULAR RISK <40 mg/dl - HIGH CARDIOVASCULAR RISK Normal [facility] Comment on above: Performed By: #### D ATBMP #### [facility] [address] [address] [address] David Phillips LDL CALC NORMAL SEE BELOW Normal [facility] Comment on above: Result Comment: <100 mg/dl OPTIMAL 100 - 129 mg/dl NEAR OR ABOVE OPTIMAL 130 - 159 mg/dl BORDERLINE HIGH 160 - 189 mg/dl HIGH >190 mg/dl VERY HIGH Performed By: #### D ATBMP #### [facility] [address] [address] [address] David Phillips Potassium [Moles/Vol] 4.2 mmol/L Normal 3.5-5.1 [facility] Comment on above: Performed By: #### D ATBMP #### [facility] [address] [address] [address] David Phillips Sodium [Moles/Vol] 139 mmol/L Normal 136-145 [facility] Comment on above: Performed By: #### D ATBMP #### [facility] [address] [address] [address] David Phillips Triglyceride [Mass/Vol] 64 mg/dL Normal <=150 [facility] Comment on above: Performed By: #### D ATBMP #### [facility] [address] [address] [address] David Phillips Urea nitrogen [Mass/Vol] 15.0 mg/dL Normal 7.0-18.0 [facility] Comment on above: Performed By: #### D ATBMP #### [facility] [address] [address] [address] David Phillips Urea nitrogen/Creatinine [Mass ratio] 21.1 mg/mg Normal [facility] Comment on above: Performed By: #### D ATBMP #### [facility] [address] [address] [address] David Phillips VLDL CALC 12.8 mg/dL Normal [facility] Comment on above: Performed By: #### D ATBMP #### [facility] [address] [place] [address] Dr. David Phillips GLYCOHEMOGLOBIN A1Con 2021 ADA RECOMMENDATION SEE BELOW Normal [facility] Comment on above: Result Comment: ADA RECOMMENDED LIMIT 4.0 - 6.0 ADA THERAPEUTIC TARGET < 7.0 ACTION SUGGESTED > 7.0 Performed By: #### D ATA1C #### [facility] [address] [place] [address] Dr. David Phillips Glucose [Mass/Vol] 111 mg/dL Normal [facility] Comment on above: Performed By: #### D ATA1C #### [facility] [address] [place] [address] Dr. David Phillips HbA1c (Bld) [Mass fraction] 5.5 % Normal 4.5-6.2 [facility] Comment on above: Performed By: #### D ATA1C #### [facility] [address] [place] [address] Dr. David Phlilips SGOTon 02-07-2022 AST [Catalytic activity/Vol] 19 U/L Normal 15-37 [facility] Comment on above: Performed By: #### A LT, AST #### [facility] [address] [place] [address] Dr. David Phillips SGPTon 02-07-2022 ALT [Catalytic activity/Vol] 27 U/L Normal 14-59 [facility] Comment on above: Performed By: #### A LT, AST #### [facility] [address] [place], [place] [address] Dr. David Phillips CBC AUTO DIFFon 11-28-2021 BASO # 0.0 103/ul Normal 0.0-0.1 [facility] Comment on above: Performed By: #### D ATCBC #### [facility] [address] [place] [address] Dr. David Phillips Basophils/100 WBC (Bld) 0.1 % Critically low 0.2-2.0 [facility] Comment on above: Performed By: #### D ATCBC #### [facility] [address] [place] [address] Dr. David Phillips EO # 0.0 103/ul Normal 0.0-0.7 [facility] Comment on above: Performed By: #### D ATCBC #### [facility] [address] [place] [address] Dr. David Phillips Eosinophils/100 WBC (Bld) 0.0 % Critically low 0.9-7.0 [facility] Comment on above: Performed By: #### D ATCBC #### [facility] [address] [place] [address] Dr. David Phillips Erythrocyte distribution width (RBC) [Ratio] 13.5 % Normal 11.0-15.0 [facility] Comment on above: Performed By: #### D ATCBC #### [facility] [address] [place] [address] Dr. David Phillips Hematocrit (Bld) [Volume fraction] 41.4 % Normal 36.0-48.0 [facility] Comment on above: Performed By: #### D ATCBC #### [facility] [address] [place] [address] Dr. David Phillips Hemoglobin (Bld) [Mass/Vol] 13.4 g/dL Normal 12.0-16.0 [facility] Comment on above: Performed By: #### D ATCBC #### [facility] [address] [place] [address] Dr. David Phillips IG # 0.07 10e3/ul Critically high 0.00-0.03 [facility] Comment on above: Performed By: #### D ATCBC #### [facility] [address] [place] [address] Dr. David Phillips IG % 0.5 % Normal 0.0-0.5 [facility] Comment on above: Performed By: #### D ATCBC #### [facility] [address] [place] [address] Dr. David Phillips LYMPH # 1.0 103/ul Critically low 1.2-3.8 [facility] Comment on above: Performed By: #### D ATCBC #### [facility] [address] [place] [address] Dr. David Phillips Lymphocytes/100 WBC (Bld) 7.1 % Critically low 20.5-60.0 [facility] Comment on above: Performed By: #### D ATCBC #### [facility] [address] [place] [address] Dr. David Phillips MCH (RBC) [Entitic mass] 28.8 pg Normal 26.7-34.0 [facility] Comment on above: Performed By: #### D ATCBC #### [facility] [address] [place] [address] Dr. David Phillips MCHC (RBC) [Mass/Vol] 32.4 g/dL Normal 29.9-35.2 [facility] Comment on above: Performed By: #### D ATCBC #### [facility] [address] [place] [address] Dr. David Phillips MCV (RBC) [Entitic vol] 88.8 fL Normal 81.0-99.0 [facility] Comment on above: Performed By: #### D ATCBC #### [facility] [address] [place] [address] Dr. David Phillips MONO # 0.3 103/ul Normal 0.3-0.8 [facility] Comment on above: Performed By: #### D ATCBC #### [facility] [address] [place] [address] Dr. David Phillips Monocytes/100 WBC (Bld) 1.9 % Normal 1.7-12.0 [facility] Comment on above: Performed By: #### D ATCBC #### [facility] [address] [address] [address] David Phillips NEUT # 12.9 103/ul Critically high 1.4-6.5 [facility] Comment on above: Performed By: #### D ATCBC #### [facility] [address] [address] [address] David Phillips Neutrophils/100 WBC (Bld) 90.4 % Critically high 43.0-75.0 [facility] Comment on above: Performed By: #### D ATCBC #### [facility] [address] [address] [address] David Phillips Platelet mean volume (Bld) [Entitic vol] 9.1 fL Critically low 9.5-13.5 [facility] Comment on above: Performed By: #### D ATCBC #### [facility] [address] [address] [address] David Phillips PLT 296 103/ul Normal 150-450 [facility] Comment on above: Performed By: #### D ATCBC #### [facility] [address] [address] [address] David Phillips RBC 4.66 106/ul Normal 4.20-5.40 [facility] Comment on above: Performed By: #### D ATCBC #### [facility] [address] [address] [address] David Phillips WBC 14.3 103/ul Critically high 4.0-11.0 [facility] Comment on above: Performed By: #### D ATCBC #### [facility] [address] [address] [address] David Phillips BRIANNA- BMP WITH LIPIDon 2021 Anion gap [Moles/Vol] 13.2 mmol/L Normal [facility] Comment on above: Performed By: #### D ATBMP #### [facility] [address] [address] [address] David Phillips Calcium [Mass/Vol] 9.0 mg/dL Normal 8.5-10.1 [facility] Comment on above: Performed By: #### D ATBMP #### [facility] [address] [address] [address] David Phillips Chloride [Moles/Vol] 105 mmol/L Normal 98-107 [facility] Comment on above: Performed By: #### D ATBMP #### [facility] [address] [address] [address] David Phillips Cholesterol [Mass/Vol] 191 mg/dL Normal <=200 [facility] Comment on above: Performed By: #### D ATBMP #### [facility] [address] [address] [address] David Phillips Cholesterol in HDL [Mass/Vol] 71 mg/dL Critically high 40-60 [facility] Comment on above: Performed By: #### D ATBMP #### [facility] [address] [address] [address] David Phillips Cholesterol in LDL [Mass/Vol] 107.4 mg/dL Normal [facility] Comment on above: Performed By: #### D ATBMP #### [facility] [address] [address] [address] David Phillips CO2 [Moles/Vol] 28.7 mmol/L Normal 21.0-32.0 [facility] Comment on above: Performed By: #### D ATBMP #### [facility] [address] [address] [address] David Phillips Creatinine [Mass/Vol] 0.62 mg/dL Normal 0.55-1.02 [facility] Comment on above: Performed By: #### D ATBMP #### [facility] [address] [address] [address] David Phillips EGFR-AF [place] >60 Normal >=60 [facility] Comment on above: Performed By: #### D ATBMP #### [facility] [address] [address] [address] David Phillips EGFR-NON AF [place] >60 Normal >=60 [facility] Comment on above: Performed By: #### D ATBMP #### [facility] [address] [address] [address] David Phillips Glucose [Mass/Vol] 128 mg/dL Critically high 74-106 [facility] Comment on above: Performed By: #### D ATBMP #### [facility] [address] [address] [address] David Phillips HDL NORMAL > or = 60 mg/dl - LO W CARDIOVASCULAR RISK <40 mg/dl - HIGH CARDIOVASCULAR RISK Normal [facility] Comment on above: Performed By: #### D ATBMP #### [facility] [address] [address] [address] David Phillips LDL CALC NORMAL SEE BELOW Normal [facility] Comment on above: Result Comment: <100 mg/dl OPTIMAL 100 - 129 mg/dl NEAR OR ABOVE OPTIMAL 130 - 159 mg/dl BORDERLINE HIGH 160 - 189 mg/dl HIGH >190 mg/dl VERY HIGH Performed By: #### D ATBMP #### [facility] [address] [address] [address] David Phillips Potassium [Moles/Vol] 3.9 mmol/L Normal 3.5-5.1 [facility] Comment on above: Performed By: #### D ATBMP #### [facility] [address] [address] [address] David Phillips Sodium [Moles/Vol] 143 mmol/L Normal 136-145 [facility] Comment on above: Performed By: #### D ATBMP #### [facility] [address] [address] [address] David Phillips Triglyceride [Mass/Vol] 63 mg/dL Normal <=150 [facility] Comment on above: Performed By: #### D ATBMP #### [facility] [address] [address] [address] David Phillips Urea nitrogen [Mass/Vol] 15.0 mg/dL Normal 7.0-18.0 [facility] Comment on above: Performed By: #### D ATBMP #### [facility] [address] [address] [address] David Phillips Urea nitrogen/Creatinine [Mass ratio] 24.2 mg/mg Normal [facility] Comment on above: Performed By: #### D ATBMP #### [facility] [address] [address] [address] David Phillips VLDL CALC 12.6 mg/dL Normal [facility] Comment on above: Performed By: #### D ATBMP #### [facility] [address] [address] [address] David Phillips GLYCOHEMOGLOBIN A1Con 2021 ADA RECOMMENDATION SEE BELOW Normal [facility] Comment on above: Result Comment: ADA RECOMMENDED LIMIT 4.0 - 6.0 ADA THERAPEUTIC TARGET < 7.0 ACTION SUGGESTED > 7.0 Performed By: #### D ATCBC #### [facility] [address] [place] [address] Dr. David Phillips Glucose [Mass/Vol] 105 mg/dL Normal [facility] Comment on above: Performed By: #### D ATCBC #### [facility] [address] [address] [address] David Phillips HbA1c (Bld) [Mass fraction] 5.3 % Normal 4.5-6.2 [facility] Comment on above: Performed By: #### D ATCBC #### [facility] [address] [place] [address] Dr. David Phillips SCREENING MAMMOGRAM W/GAIL, BILATERAL*on [...] VERY IMPORTANT TO YOUR HEALTH. THE CURRENT [place] [employer] AND [employer] GUIDELINES RECOMMENDS ANNUAL MAMMOGRAPHY BEGINNING AT AGE 40 THIS FACILITY USES A REMINDER SYSTEM TO ENSURE ALL PATIENTS RECEIVE REMINDER NOTIFICATIONS AT THE APPROPRIATE TIME BASED ON THE RECOMMENDATIONS OF THIS EXAM. Board Certified Radiologist. Accredited by the ACR and FDA. Report reported and signed by Trell Martin on 06/11/2021 1236 Normal [facility] Property Portfolio Officer LARGE JOINT/BURSA INJECTION AND/OR ASPIRATION: R hip [...] fashion. The patient was prepped with Chloraprep. 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 [facility] X-rays, weightbearin g AP pelvis and [...] sacroiliac joints demonstrate moderate evidence of osteoarthrosis. [facility] CBCon 02-25-2018 ABSOLUTE BAS 0.0 X10 Normal [facility] ABSOLUTE EOS 0.10 X10 Normal [facility] ABSOLUTE NEUTROPHIL COUNT 4.5 x10 Normal 1.0-7.0 [facility] Basophils/100 WBC Auto (Bld) 0.7 % Normal 0.0-2.0 [facility] DTYPE AUTO DIFF Normal [facility] Eosinophils/100 WBC Auto (Bld) 1.9 % Normal 0.0-11.0 [facility] Lymphocytes Auto #/vol (Bld) 1.80 X10 Normal [facility] Lymphocytes/100 WBC Auto (Bld) 25.1 % Normal 20.0-55.0 [facility] Monocytes Auto #/vol (Bld) 0.6 X10 Normal [facility] Monocytes/100 WBC Auto (Bld) 8.3 % Normal 0.0-10.0 [facility] Neutrophils/100 WBC Auto (Bld) 64.0 % Normal 37.0-75.0 [facility] Erythrocyte distribution width Auto Ratio (RBC) 13.4 % Normal 11.5-14.5 [facility] Hematocrit Auto Volume Fraction (Bld) 39.9 % Normal 36.0-48.0 [facility] Hemoglobin mass conc (Bld) 13.4 g/dL Normal 12.0-16.0 [facility] MCH Auto Entitic mass (RBC) 28.7 pg Normal 26.0-35.0 [facility] MCHC Auto mass conc (RBC) 33.5 g/dL Normal 27.0-37.0 [facility] MCV Auto Entitic volume (RBC) 85.7 fL Normal 80.0-100.0 [facility] Platelet mean volume Auto Entitic volume (Bld) 7.3 fL Low 7.4-11.0 [facility] Platelets Auto #/vol (Bld) 329 /cmm Normal 130.0-400. 0 [facility] RBC Auto #/vol (Bld) 4.66 /cmm Normal 4.0-5.4 [facility] WBC Auto #/vol (Bld) 7.0 /cmm Normal 3.6-11.0 [facility] CHEMISTRY, [facility] ALT enzyme act/vol 30 U/L Normal 9-52 [facility] Calcium mass conc 9.3 mg/dL Normal 8.4-10.2 [facility] Cholesterol in HDL mass conc 49 mg/dL Normal 33-75 [facility] Cholesterol in LDL mass conc 91 MG/DL Normal [facility] Cholesterol in VLDL mass conc 22 mg/dL Normal 5.0-25 [facility] Cholesterol mass conc 162 mg/dL Normal 107-217 [facility] Cholesterol.total/Ch olesterol in HDL mass ratio 3.31 {ratio} Normal [facility] Comment on above: Result Comment: RISK TOTAL/HDL RATIO MEN WOMEN1/2 AVERAGE 3.43 3.27AVERAGE 4.97 4.442X AVERAGE 9.55 7.053X AVERAGE 23.99 11.04 Creatinine mass conc 0.6 mg/dL Low 0.7-1.2 [facility] EST. GFR, >60 Normal [facility] EST. GFR,Non >60 Normal [facility] Gamma glutamyl transferase [Enzymatic activity/volume] in Serum or Plasma 18 IU/L Normal 12-43 [facility] GFR/1.73 sq M predicted among non-blacks MDRD vol rate/area (S/P/Bld) Average GFR for 60-69 years old = 85. Normal [facility] Comment on above: Result Comment: [employer] Kidney disease, GFR = <60.Kidney failure, GFR = <15.The GFR estimate is not adjusted for extreme body surface area or acute process, nor has it been validated for women or ethnic groups other than and . Glucose mass conc 92 mg/dL Normal 70-100 [facility] Comment on above: Result Comment: NORM AL <100 mg/dLPREDIABETES 101-126 mg/dLDIABETES 126 mg/dL or higher Potassium molar conc 4.3 mmol/L Normal 3.5-5.1 [facility] Sodium molar conc 142 mmol/L Normal 137-145 [facility] Triglyceride mass conc 111 mg/dL Normal 0-150 [facility] Urea nitrogen mass conc (Bld) 17 mg/dL Normal 7-20 [facility] HEMOGLOBIN A1Con 02-25-2018 Glucose mass conc 105 mg/dL Normal [facility] Hemoglobin A1c/Hemoglobin.total mass fraction (Bld) 5.3 % Normal 0-6 [facility] Comment on above: Result Comment: NORM AL <5.7%PREDIABETES 5.7-6.4%DIABETES 6.5% OR HIGHER WRISTon 12-05-2017 WRIST Final ReportAccession No: [id number] Performed: Dec 05 2017 11:45AMExamination: RIGHT [...] GARY BLANCO D.O.Trans: abond : cc: Normal [facility] WRISTon 11-07-2017 WRIST Final ReportAccession No: [id number] Performed: Nov 07 2017 9:58AMExamination: RIGHT [...] MADIE LORENZO M.D.Trans: lcoope : cc: Normal [facility] XR WRIST RIGHT 3+ VIEWS (STA [...] angulation.Distal ulna intact.Carpal bones appear well positioned. Aarj-qw-ywxwctbs arthritic changes seen of proximal carpal row, greatest laterally.IMPRESSION:1. Healing distal radial nondisplaced nonarticular transverse fracture now seen.2. Chronic mqph-zu-gehdalrm arthritic changes, greatest involving lateral carpal joints.ARR/trnWorkstation ID: [id number] by: ANDREZ ECHAVARRIA on FriOct 09, 2017 7:30:06 AM EDTTranscribed by: LANI EDWARDS on FriOct 09, 2017 9:26:53 AM EDTFinalized by: ANDREZ ECHAVARRIA on FriOct 09, 2017 4:08:[address] [facility] Comment on above: Order Comment: Reaso n for exam?:rt wrist painInjury/Trauma or Illness?:Injury/TraumaHow long have you had these symptoms (acute/chronic)?:AcuteHistory of cancer?:unkSurgeries, chemotherapy, or radiation?:carpal tunnelType of Exam?:Subsequent/Follow-upMechanism of injury?:fall XR WRIST RIGHT 3 VIEWSon XR WRIST RIGHT 3 VIEWS EXAMINATION: XR WRIST RIGHT 3 VIEWS [id number] CLINICAL HISTORY: 61-year-old female with history of fall swelling right posterior wristFINDINGS/IMPRESSION: Comparison: Compared to none available.No definite acute fracture or malalignment of the right wrist.Focal soft tissue swelling dorsally is seen at the level of the carpal metacarpal articulation. No pathologic calcifications. Blunted appearance of the ulnar styloid could relate to remote trauma. Normal [facility] Mammogramon 11-07-2016 DR Mammogram Patient Name: Fe YIN : [id number]: [id number] Date: [id number] #: [id number] Class: OPhysician: Conchis COUCH Physician: , Study [...] results.The National [employer] Cancer Network and the [employer] recommend annual screening mammograms for women age 40 and older.Dictated: Isidro Morrison 11/07/2016 15:09Transcribed: Isidro Morrison 11/07/2016 15:11Electronically Signed: Isidro Morrison 11/07/2016 15:11[facility] [place] [address] [email or web address], [place] [address] [email or web address] [facility] Vital Signs Date Time Vital Sign Value Performing Clinician Facility 10-01-2024 11:29-0400 Body height 165.1 cm Karen Cardoso DO Work Phone: [facility] 10-01-2024 11:29-0400 Body weight 70.3 kg Karen Cardoso DO Work Phone: [facility] 08-26-2024 13:19-0400 Diastolic blood pressure 74 mm[Hg] Karen Cardoso DO Work Phone: [facility] 08-26-2024 13:19-0400 Respiratory rate 18 /min Karen Cardoso DO Work Phone: [facility] 08-26-2024 13:19-0400 SaO2% (BldA) [Mass fraction] 96 % Karen Cardoso DO Work Phone: [facility] 08-26-2024 13:19-0400 Systolic blood pressure 120 mm[Hg] Karen Cardoso DO Work Phone: [facility] 07-27-2024 10:05-0400 Body mass index (BMI) [Ratio] 25.79 kg/m2 Nicole Nataprawira DO Work Phone: [facility] 07-27-2024 10:05-0400 Body weight 70.31 kg Nicole Nataprawira DO Work Phone: [facility] 07-27-2024 10:05-0400 Diastolic blood pressure 80 mm[Hg] Nicole Nataprawira DO Work Phone: [facility] 07-27-2024 10:05-0400 Systolic blood pressure 118 mm[Hg] Nicole Nataprawira DO Work Phone: [facility] 06-16-2024 08:42-0500 Body height 165.1 cm Karen Cardoso DO Work Phone: [facility] 06-16-2024 08:42-0500 Body mass index (BMI) [Ratio] 26.1 kg/m2 Karen Cardoso DO Work Phone: [facility] 06-16-2024 08:42-0500 Body temperature 97.8 [degF] Karen Cardoso DO Work Phone: [facility] 06-16-2024 08:42-0500 Body weight 71.21 kg Karen Cardoso DO Work Phone: [facility] 06-16-2024 08:42-0500 Diastolic blood pressure 74 mm[Hg] Karen Cardoso DO Work Phone: [facility] 06-16-2024 08:42-0500 Heart rate 82 /min Karen Cardoso DO Work Phone: [facility] 06-16-2024 08:42-0500 SaO2% (BldA) [Mass fraction] 97 % Karen Cardoso DO Work Phone: [facility] 06-16-2024 08:42-0500 Systolic blood pressure 112 mm[Hg] Karen Serranosrinivas DO Work Phone: [facility] 01-05-2024 11:50-0400 Diastolic blood pressure 60 mm[Hg] DO Karen Cardoso Work Phone: [facility] 01-05-2024 11:50-0400 Heart rate 88 /min DO Karen Cardoso Work Phone: [facility] 01-05-2024 11:50-0400 Respiratory rate 16 /min DO Karen Cardoso Work Phone: [facility] 01-05-2024 11:50-0400 SaO2% (BldA) [Mass fraction] 96 % DO Karen Cardoso Work Phone: [facility] 01-05-2024 11:50-0400 Systolic blood pressure 114 mm[Hg] DO Karen Walker Work Phone: [facility] 01-05-2024 11:20-0400 Inhaled oxygen flow rate 1 L/min DO Karen Walker Work Phone: [facility] 01-05-2024 11:00-0400 Body temperature 98 [degF] DO Karen Girsrinivas Work Phone: [facility] 01-05-2024 06:20-0400 Body height 165.1 cm DO Karen Girvin Work Phone: [facility] 01-05-2024 06:20-0400 Body weight 70 kg DO Karen Girvin Work Phone: [facility] 12-25-2023 14:27-0400 Body height 165.1 cm DO Karen Girsrinivas Work Phone: [facility] 12-25-2023 14:27-0400 Body mass index (BMI) [Ratio] 25.7 kg/m2 DO Karen Girvin Work Phone: [facility] 12-25-2023 14:27-0400 Body weight 70 kg DO Karen Girsrinivas Work Phone: [facility] 12-12-2023 09:09-0400 Body height 165.1 cm DO Karen Cardoso Work Phone: [facility] 12-12-2023 09:09-0400 Body mass index (BMI) [Ratio] 25.7 kg/m2 DO Karen Girsrinivas Work Phone: [facility] 12-12-2023 09:09-0400 Body temperature 97.4 [degF] DO Karen Girsrinivas Work Phone: [facility] 12-12-2023 09:09-0400 Body weight 70.3 kg DO Karen Girsrinivas Work Phone: [facility] 12-12-2023 09:09-0400 Diastolic blood pressure 76 mm[Hg] DO Karen Girvin Work Phone: [facility] 12-12-2023 09:09-0400 Heart rate 76 /min DO Karen Girvin Work Phone: [facility] 12-12-2023 09:09-0400 Respiratory rate 16 /min DO Karen Girsrinivas Work Phone: [facility] 12-12-2023 09:09-0400 SaO2% (BldA) [Mass fraction] 98 % DO Karen Cardoso Work Phone: [facility] 12-12-2023 09:09-0400 Systolic blood pressure 130 mm[Hg] DO Karen Cardoso Work Phone: [facility] 09-15-2023 13:54-0400 Body height 165.1 cm DO Karen Cardoso Work Phone: [facility] 09-15-2023 13:54-0400 Body mass index (BMI) [Ratio] 26.1 kg/m2 DO Karen Cardoso Work Phone: [facility] 09-15-2023 13:54-0400 Body temperature 97.3 [degF] DO Karen Cardoso Work Phone: [facility] 09-15-2023 13:54-0400 Body weight 71.21 kg DO Karen Cardoso Work Phone: [facility] 09-15-2023 13:54-0400 Diastolic blood pressure 78 mm[Hg] DO Karen Cardoso Work Phone: [facility] 09-15-2023 13:54-0400 Heart rate 81 /min DO Karen Cardoso Work Phone: [facility] 09-15-2023 13:54-0400 SaO2% (BldA) [Mass fraction] 97 % DO Karen Cardoso Work Phone: [facility] 09-15-2023 13:54-0400 Systolic blood pressure 118 mm[Hg] DO Karen Cardoso Work Phone: [facility] 06-26-2023 09:10-0500 Body height 165.1 cm DO Karen Cardoso Work Phone: [facility] 06-26-2023 09:10-0500 Body mass index (BMI) [Ratio] 26.6 kg/m2 DO Karen Cardoso Work Phone: [facility] 06-26-2023 09:10-0500 Body temperature 97.9 [degF] DO Karen Cardoso Work Phone: [facility] 06-26-2023 09:10-0500 Body weight 72.8 kg DO Karen Cardoso Work Phone: [facility] 06-26-2023 09:10-0500 Diastolic blood pressure 78 mm[Hg] DO Karen Cardoso Work Phone: [facility] 06-26-2023 09:10-0500 Heart rate 91 /min DO Karen Cardoso Work Phone: [facility] 06-26-2023 09:10-0500 Respiratory rate 18 /min DO Karen Cardoso Work Phone: [facility] 06-26-2023 09:10-0500 SaO2% (BldA) [Mass fraction] 98 % DO Karen Cardoso Work Phone: [facility] 06-26-2023 09:10-0500 Systolic blood pressure 128 mm[Hg] DO Karen Cardoso Work Phone: [facility] 06-13-2023 09:14-0500 Body height 165.1 cm DO Karen Cardoso Work Phone: [facility] 06-13-2023 09:14-0500 Body mass index (BMI) [Ratio] 26.1 kg/m2 DO Karen Cardoso Work Phone: [facility] 06-13-2023 09:14-0500 Body weight 71.21 kg DO Karen Cardoso Work Phone: [facility] 05-14-2023 08:15-0500 Body height 165.1 cm Finn Ortez II Other [facility] 12-12-2022 09:10-0400 Body height 165.1 cm Karen Cardoso Other [facility] Other 12-12-2022 09:10-0400 Body mass index (BMI) [Ratio] 27.12 kg/m2 Karen Cardoso Other [facility] Other 12-12-2022 09:10-0400 Body temperature 98.6 [degF] Karen Cardoso Other [facility] Other 12-12-2022 09:10-0400 Body weight 73.94 kg Karen Cardoso Other [facility] Other 12-12-2022 09:10-0400 Diastolic blood pressure 78 mm[Hg] Karen Cardoso Other [facility] Other 12-12-2022 09:10-0400 Respiratory rate 18 /min Karen Cardoso Other [facility] Other 12-12-2022 09:10-0400 SaO2% (BldA) [Mass fraction] 96 % Karen Cardoso Other [facility] Other 12-12-2022 09:10-0400 Systolic blood pressure 124 mm[Hg] Karen Cardoso Other [facility] Other 07-12-2022 11:00-0400 Body height 165.1 cm Finn Ortez II Other [facility] Other 07-12-2022 11:00-0400 Body mass index (BMI) [Ratio] 26.62 kg/m2 Finn Ste. Genevieve II Other [facility] Other 07-12-2022 11:00-0400 Body weight 72.58 kg Finn Dalalisle II Other [facility] Other 06-13-2022 09:10-0500 Body height 165.1 cm Karen Cardoso Other [facility] Other 06-13-2022 09:10-0500 Body mass index (BMI) [Ratio] 27.29 kg/m2 Karen Maggiesrinivas Other [facility] Other 06-13-2022 09:10-0500 Body weight 74.39 kg Karen Cardoso Other [facility] Other 06-13-2022 09:10-0500 Diastolic blood pressure 80 mm[Hg] Karen Cardoso Other [facility] Other 06-13-2022 09:10-0500 Respiratory rate 18 /min Karen Cardoso Other [facility] Other 06-13-2022 09:10-0500 SaO2% (BldA) [Mass fraction] 98 % Karen Cardoso Other [facility] Other 06-13-2022 09:10-0500 Systolic blood pressure 132 mm[Hg] Karen Cardoso Other [facility] Other 02-12-2022 10:50-0400 Body height 165.1 cm Karen Cardoso Other [facility] Other 12-06-2021 11:30-0400 Body height 165.1 cm Karen Cardoso Other [facility] Other 12-06-2021 11:30-0400 Body mass index (BMI) [Ratio] 25.62 kg/m2 Karen Cardoso Other [facility] Other 12-06-2021 11:30-0400 Body temperature 97.6 [degF] Karen Cardoso Other [facility] Other 12-06-2021 11:30-0400 Body weight 69.85 kg Karen Cardoso Other [facility] Other 12-06-2021 11:30-0400 Diastolic blood pressure 82 mm[Hg] Karen Cardoso Other [facility] Other 12-06-2021 11:30-0400 Respiratory rate 16 /min Karen Walker Other [facility] Other 12-06-2021 11:30-0400 SaO2% (BldA) [Mass fraction] 96 % Karen Serranosrinivas Other [facility] Other 12-06-2021 11:30-0400 Systolic blood pressure 122 mm[Hg] Karen Cardoso Other [facility] Other 05-23-2020 09:12-0500 BMI (Body Mass Index) 28.06 kg/m2 [facility] 05-23-2020 09:12-0500 Body weight 76.48 kg [facility] 05-23-2020 09:12-0500 Height 165.1 cm [facility] 05-02-2020 12:42-0500 BMI (Body Mass Index) 28.36 kg/m2 [facility] 05-02-2020 12:42-0500 Body weight 77.29 kg [facility] 05-02-2020 12:42-0500 Height 165.1 cm [facility] 04-29-2020 14:49-0500 Body surface area Derived from formula 1.8 m2 [facility] 04-27-2020 08:58-0500 BMI (Body Mass Index) 26.63 kg/m2 [facility] 04-27-2020 08:58-0500 Body weight 72.58 kg [facility] 04-27-2020 08:58-0500 Height 165.1 cm [facility] 07-27-2018 08:54-0400 BMI (Body Mass Index) 26.48 kg/m2 [facility] 07-27-2018 08:54-0400 Body Temperature 98.49 [degF] [facility] 07-27-2018 08:54-0400 Body weight 73.85 kg [facility] 07-27-2018 08:54-0400 BP Diastolic 60 mm[Hg] [facility] 07-27-2018 08:54-0400 BP Systolic 110 mm[Hg] [facility] 07-27-2018 08:54-0400 Height 167 cm [facility] 07-27-2018 08:54-0400 Pulse (Heart Rate) 65 /min [facility] 07-27-2018 08:54-0400 Pulse Oximetry 96 % [facility] 07-27-2018 08:54-0400 Respiratory Rate 16 /min [facility] 05-11-2018 15:19-0500 BMI (Body Mass Index) 26.57 kg/m2 [facility] Work Phone: 05-11-2018 15:19-0500 Body Temperature 97.3 [degF] [facility] Work Phone: 05-11-2018 15:19-0500 BP Diastolic 68 mm[Hg] [facility] Work Phone: 05-11-2018 15:19-0500 BP Systolic 118 mm[Hg] [facility] Work Phone: 05-11-2018 15:19-0500 Height 167 cm [facility] Work Phone: 05-11-2018 15:19-0500 Pulse (Heart Rate) 73 /min [facility] Work Phone: 05-11-2018 15:19-0500 Pulse Oximetry 97 % [facility] Work Phone: 05-11-2018 15:19-0500 Respiratory Rate 16 /min [facility] Work Phone: 05-11-2018 15:19-0500 Weight 74.12 kg [facility] Work Phone: 03-30-2018 13:16-0500 BMI (Body Mass Index) 26.7 kg/m2 [facility] Work Phone: 03-30-2018 13:16-0500 Body Temperature 97.7 [degF] [facility] Work Phone: 03-30-2018 13:16-0500 BP Diastolic 58 mm[Hg] [facility] Work Phone: 03-30-2018 13:16-0500 BP Systolic 116 mm[Hg] [facility] Work Phone: 03-30-2018 13:16-0500 Height 167 cm [facility] Work Phone: 03-30-2018 13:16-0500 Pulse (Heart Rate) 66 /min [facility] Work Phone: 03-30-2018 13:16-0500 Pulse Oximetry 97 % [facility] Work Phone: 03-30-2018 13:16-0500 Respiratory Rate 16 /min [facility] Work Phone: 03-30-2018 13:16-0500 Weight 74.48 kg [facility] Work Phone: 12-05-2017 11:24-0400 BMI (Body Mass Index) 26.61 kg/m2 [facility] 12-05-2017 11:24-0400 BP Diastolic 78 mm[Hg] [facility] 12-05-2017 11:24-0400 BP Systolic 130 mm[Hg] [facility] 12-05-2017 11:24-0400 Height 162.6 cm [facility] 12-05-2017 11:24-0400 Pulse (Heart Rate) 57 /min [facility] 12-05-2017 11:24-0400 Weight 70.31 kg [facility] 11-07-2017 09:44-0400 BMI (Body Mass Index) 26.61 kg/m2 [facility] 11-07-2017 09:44-0400 Height 162.6 cm [facility] 11-07-2017 09:44-0400 Weight 70.31 kg [facility] 10-08-2017 14:41-0400 BMI (Body Mass Index) 26.61 kg/m2 [facility] 10-08-2017 14:41-0400 Height 162.6 cm [facility] 10-08-2017 14:41-0400 Weight 70.31 kg [facility] Encounters Encounter Date Encounter Type Care Provider Facility Start: 10-26-2024 ambulatory Karen Cardoso Facility:[facility] Start: 10-01-2024 Non-patient / Non-visit Karen Cardoso DO Work Phone: [facility] Work Phone: Start: 10-01-2024 End: 10-01-2024 Patient encounter procedure Karen Cardoso DO Work Phone: [facility] Work Phone: Start: 10-01-2024 End: 10-01-2024 ambulatory Karen Cardoso DO Work Phone: [facility] Work Phone: Start: 09-14-2024 End: [...] 08-26-2024 ambulatory Karen Cardoso DO Work Phone: [facility] Work Phone: Start: 08-26-2024 End: 08-26-2024 Patient encounter procedure [facility] DO [facility] Work Phone: Start: 07-27-2024 End: 07-27-2024 Patient encounter status Nicole Hawkins DO Work Phone: [facility] Work Phone: Start: 07-27-2024 End: 07-27-2024 Periodic preventive med est patient 65yrs& older Nicole Hawkins DO Work Phone: [facility] Comment on above: Encounter for gyneco logical examination (general) (routine) with abnormal findings (Primary Dx); Cystocele, midline; Other screening mammogram; Hx of hysterectomy for benign disease; Hx of BSO (bilateral salpingo-oophorectomy) Start: 07-27-2024 End: 07-27-2024 ambulatory NICOLE HAWKINS Not Available Start: 07-27-2024 Registered Recurring Karen espino DO Work Phone: [facility] Start: 06-16-2024 End: 06-16-2024 ambulatory Karen Cardoso DO Work Phone: [facility] Work Phone: Start: 06-16-2024 End: 06-16-2024 Patient encounter procedure Karen Cardoso DO Work Phone: [facility] Work Phone: Start: 06-11-2024 Non-patient / Non-visit Karen Cardoso DO Work Phone: [facility] Work Phone: Start: 05-20-2024 End: 05-20-2024 Patient encounter procedure [facility] Comment on above: Sensorineural hearin g loss, bilateral (Primary Dx) Start: 05-20-2024 End: 05-20-2024 ambulatory MOTAPRAWIRA Not Available Start: 05-18-2024 Registered Recurring Karen Serrano srinivas DO Work Phone: [facility] Start: 05-04-2024 End: 05-04-2024 Bamboo [...] encounter procedure Karen Cardoso DO Work Phone: [facility] Work Phone: Start: 04-07-2024 End: 04-07-2024 ambulatory Karen Cardoso Facility:[facility] Start: 02-24-2024 End: 02-24-2024 ambulatory DO Karen Cardoso Work Phone: [facility] Work Phone: Start: 02-24-2024 End: 02-24-2024 Patient encounter procedure DO Karen Cardoso Work Phone: [facility] Work Phone: Start: 02-10-2024 Registered Recurring DO Karen Cardoso Work Phone: [facility] Start: 02-05-2024 Non-patient / Non-visit DO Saurabh id Girvin Work Phone[facility] Work Phone: Start: 01-21-2024 End: 01-21-2024 ambulatory DO Karen Cardoso Work Phone: [facility] Work Phone: Start: 01-21-2024 End: 01-21-2024 Patient encounter procedure DO Karen Cardoso Work Phone: [facility] Work Phone: Start: 01-05-2024 Non-patient / Non-visit DO Saurabh id Girsrinivas Work Phone: [facility] Work Phone: Start: 01-05-2024 End: 01-05-2024 Admission to same day surgery center DO Karen Cardoso Work Phone: [facility] [place] Start: 01-05-2024 End: 01-05-2024 ambulatory DO Karen Cardoso Work Phone: [facility] Work Phone: Start: 12-30-2023 Registered Recurring DO Karen Cardoso Work Phone: [facility] Start: 12-26-2023 End: 12-26-2023 ambulatory DO Karen Cardoso Work Phone: [facility] Work Phone: Start: 12-26-2023 End: 12-26-2023 Patient encounter procedure DO Karen Cardoso Work Phone: [facility] Work Phone: Start: 12-25-2023 End: 12-25-2023 Patient encounter procedure DO Karen Cardoso Work Phone: [facility] Work Phone: Start: 12-25-2023 Registered Recurring DO Karen Cardoso Work Phone: [facility] Start: 12-25-2023 End: 12-25-2023 ambulatory DO Karen Cardoso Work Phone: [facility] Work Phone: Start: 12-22-2023 End: 12-22-2023 Patient encounter procedure DO Karen Cardoso Work Phone: [facility]-Pre-Surgical Testing Work Phone: Start: 12-22-2023 End: 12-22-2023 ambulatory DO Karen Cardoso Work Phone: [facility] Work Phone: Start: 12-22-2023 Encounter for preprocedural laboratory examination Finn Ortez II [facility] Start: 12-19-2023 Non-patient / Non-visit DO Saurabh id Girsrinivas Work Phone: [facility] Work Phone: Start: 12-19-2023 Non-patient / Non-visit DO Saurabh id Girvin Work Phone: [facility] Work Phone: Start: 12-12-2023 Patient encounter status DO José larkinpipo Walker Work Phone: [facility] Start: 12-12-2023 End: 12-12-2023 ambulatory DO Karen Cardoso Work Phone: [facility] Work Phone: Start: 12-12-2023 End: 12-12-2023 Patient encounter procedure DO Karen Serranosrinivas Work Phone: [facility] [place] Work Phone: Start: 12-06-2023 Non-patient / Non-visit DO Saurabh Cardoso Work Phone: [facility] Work Phone: Start: 11-20-2023 Registered Recurring DO Karen Cardoso Work Phone: [facility] Start: 11-19-2023 End: 11-19-2023 Patient encounter procedure DO Karen Serranosrinivas Work Phone: [facility] Start: 11-19-2023 End: 11-19-2023 ambulatory DO Karen Maggiesrinivas Work Phone: [facility] Work Phone: Start: 11-19-2023 End: 11-19-2023 ambulatory DO Karen Serranosrinivas Work Phone: [facility] Work Phone: Start: 11-19-2023 End: 11-19-2023 Patient encounter procedure DO Karen Serranosrinivas Work Phone: [facility] Work Phone: Start: 11-11-2023 Registered Recurring DO Karen Cardoso Work Phone: [facility] Start: 11-05-2023 End: 11-05-2023 ambulatory MOTAPRAWIRA Not Available Start: 09-18-2023 End: 09-18-2023 ambulatory DO Karen Serranosrinivas Work Phone: [facility] Work Phone: Start: 09-18-2023 End: 09-18-2023 Patient encounter procedure DO Karen Serranosrinivas Work Phone: [facility] Work Phone: Start: 09-15-2023 End: 09-15-2023 Patient encounter procedure DO Karen Serranosrinivas Work Phone: [facility] [place] Work Phone: Start: 09-15-2023 End: 09-15-2023 ambulatory DO Karen Cardoso Work Phone: [facility] Work Phone: Start: 09-15-2023 End: 09-15-2023 Departed Referred DO Karen Cardoso Work Phone: [facility] [place] Work Phone: Start: 06-26-2023 End: 06-26-2023 Patient encounter procedure DO Karen Cardoso Work Phone: [facility] [place] Work Phone: Start: 06-23-2023 Registered Recurring DO Karen Cardoso Work Phone: [facility] Start: 06-23-2023 Non-patient / Non-visit DO Saurabh Cardoso Work Phone: [facility] Work Phone: Start: 06-13-2023 End: 06-13-2023 ambulatory DO Karen Cardoso Work Phone: [facility] Work Phone: Start: 06-13-2023 End: 06-13-2023 Patient encounter procedure DO Karen Cardoso Work Phone: [facility] Work Phone: Start: 05-14-2023 End: 05-14-2023 ambulatory Finn Shultzle II Other [employer] Other Start: 05-14-2023 Office outpatient vi sit 15 minutes Finn Dalalisle II [facility] Start: 05-14-2023 End: 05-14-2023 Patient encounter procedure DO Karen Walker Work Phone: [facility]- Start: 04-15-2023 End: 04-15-2023 ambulatory Karen Cardoso Other [employer] Other Start: 04-15-2023 Telephone encounter Karen Cardoso [facility] [place] Start: 03-18-2023 Registered Recurring DO Karen Cardoso Work Phone: [facility] Start: 01-09-2023 End: 01-09-2023 ambulatory Karen Cardoso Other [employer] Other Start: 01-09-2023 Telephone encounter Karen Cardoso [facility] [place] Start: 12-17-2022 End: 12-17-2022 ambulatory Karen Cardoso Other [employer] Other Start: 12-17-2022 Telephone encounter Karen Cardoso [facility] [place] Start: 12-13-2022 End: 12-13-2022 ambulatory Karen Cardoso Other [employer] Other Start: 12-13-2022 Telephone encounter Karen Cardoso [facility] [place] Start: 12-12-2022 End: 12-12-2022 ambulatory aKren Cardoso Other [employer] Other Start: 12-12-2022 Office outpatient vi sit 25 minutes Karen Cardoso [facility] [place] Start: 09-02-2022 End: 09-02-2022 ambulatory Karen Cardoso Other [employer] Other Start: 09-02-2022 Telephone encounter Karen Cardoso [facility] [place] Start: 08-27-2022 End: 08-27-[address] KAREN CARDOSO Facility:[facility] Start: 08-01-2022 End: 08-01-2022 ambulatory Karen Cardoso Other [employer] Other Start: 08-01-2022 Telephone encounter Karen Cardoso [facility] [place] Start: 07-18-2022 End: 07-18-2022 ambulatory Finn Ortez II Other [employer] Other Start: 07-18-2022 Telephone encounter Finn Ortez II [facility] Start: 07-12-2022 FQHC visit new patient Finn hollingsworth II [facility] Start: 07-12-2022 End: 07-12-2022 ambulatory DO Karen Cardoso Work Phone: [facility] Work Phone: Start: 07-12-2022 End: 07-12-2022 Patient encounter procedure DO Karen Cardoso Work Phone: [facility] Start: 06-13-2022 End: 06-13-2022 ambulatory Karen Cardoso Other [employer] Other Start: 06-13-2022 Office outpatient vi sit 15 minutes Karen Cardoso [facility] [place] Start: 03-12-2022 Telephone encounter Karen Cardoso [facility] [place] Start: 03-12-2022 End: 03-13-2022 ambulatory NONE LISTED REQUEST [employer] Other Start: 03-06-2022 End: 03-06-2022 ambulatory Karen Cardoso Other [employer] Other Start: 03-06-2022 Telephone encounter Karen Cardoso [facility] [place] Start: 02-12-2022 End: 02-12-2022 ambulatory Karen Cardoso Other [employer] Other Start: 02-12-2022 Telephone encounter Karen Cardoso [facility] Start: 02-07-2022 Telephone [facility] Start: 02-07-2022 End: 02-08-[address] KAREN CARDOSO [facility] [employer] Other Start: 12-06-2021 End: 12-06-2021 ambulatory Karen Cardoso Other [employer] Other Start: 12-06-2021 Office outpatient vi sit 25 minutes Karen Cardoso [facility] Start: 12-03-2021 End: 12-03-2021 ambulatory Karen Cardoso Other [employer] Other Start: 12-03-2021 Telephone encounter Karen Cardoso [facility] Start: 11-28-2021 End: 11-29-2021 ambulatory NONE LISTED REQUEST Facility: Start: 02-06-2021 End: 02-10-2021 ambulatory KAREN CARDOSO [facility] Start: 06-05-2020 End: 06-05-2020 Orders Only Annmarie Xavier Work Phone: [facility] Start: 05-23-2020 End: 05-23-2020 Office outpatient visit 15 minutes Chito Land Work Phone: [facility] Comment on above: Primary osteoarthrit is of right hip (Primary Dx); Greater trochanteric bursitis of right hip Start: 05-02-2020 End: 05-02-2020 Patient encounter procedure Chito Land Work Phone: [facility] Comment on above: Primary osteoarthrit is of right hip (Primary Dx); Greater trochanteric bursitis of right hip Start: 04-27-2020 End: 04-27-2020 Subsequent hospital visit by physician Chito Land Work Phone: [facility] Comment on above: Arrived Start: 04-27-2020 End: 04-27-2020 Office outpatient new 30 minutes Chito Land Work Phone: [facility] Comment on above: Primary osteoarthrit is of right hip (Primary Dx); Greater trochanteric bursitis of right hip; Right hip pain Start: 07-27-2018 End: 07-27-2018 Patient encounter procedure [facility] Start: 07-27-2018 End: 07-27-2018 Office outpatient visit 15 minutes Payton James Work Phone: [facility] Comment on above: Acute swimmer's ear of both sides (Primary Dx) Start: 06-21-2018 End: 06-21-2018 Refill Paytonkimo James Work Phone: [facility] Start: 06-16-2018 End: 06-16-2018 Refill Paytonkimo James Work Phone: [facility] Start: 05-11-2018 Patient encounter procedure [facility] Start: 05-11-2018 End: 05-11-2018 Office outpatient visit 15 minutes Payton James Work Phone: [facility] Comment on above: Recurrent major depr essive disorder, in partial remission (Primary Dx); Anxiety Start: 04-09-2018 End: 04-09-2018 Patient encounter procedure Pretty Lovell [facility] Comment on above: Prescription Clarifi cation Start: 04-08-2018 End: 04-08-2018 Patient encounter procedure Other Other [facility] Start: 03-30-2018 End: 03-30-2018 Patient encounter procedure Provider Sebas [facility] Start: 03-30-2018 End: 03-30-2018 Office outpatient visit 15 minutes Payton James Work Phone: [facility] Comment on above: Recurrent major depr essive disorder, in partial remission (Primary Dx); Anxiety Start: 03-25-2018 End: 03-25-2018 Patient encounter procedure Payton James Work Phone: [facility] Comment on above: Medication Managemen t Start: 03-21-2018 End: 03-21-2018 Refill Payton James Work Phone: [facility] Start: 03-12-2018 Patient encounter procedure [place] Felipa JAMES [facility] Start: 03-12-2018 End: 03-12-2018 Patient encounter procedure Payton James Work Phone: [facility] Comment on above: Arrived Start: 03-03-2018 Patient encounter procedure PAYTONKIMO JAMES [facility] Start: 02-25-2018 Patient encounter procedure BUCYRUS NON-PATIENT [facility] Start: 12-05-2017 Patient encounter Sendy Preston ity:[place] Start: 12-05-2017 End: 12-05-2017 Patient encounter Isidro Birch Work Phone: [facility] Start: 12-05-2017 End: 12-05-2017 Office outpatient visit 10 minutes Isidro Birch Work Phone: [facility] Start: 11-07-2017 Patient encounter Sendy Preston ity:[place] Start: 11-07-2017 End: 11-07-2017 Patient encounter Isidro Birch Work Phone: [facility] Start: 11-07-2017 End: 11-07-2017 Office outpatient visit 10 minutes Isidro Birch Work Phone: [facility] Start: 10-08-2017 End: 10-09-2017 Ambulatory Isidro Birch Work Phone: [facility] Start: 10-08-2017 End: 10-08-2017 Office outpatient visit 15 minutes Isidro Birch Work Phone: [facility] Start: 10-08-2017 End: 10-08-2017 Ambulatory Isidro Birch Work Phone: [facility] Start: 09-15-2017 End: 09-15-2017 Emergency department patient visit RODRIGO CULP [facility] Start: 05-27-2017 End: 05-27-2017 Ambulatory DESIRE BRITT [facility] Start: 02-18-2017 Ambulatory CHIKI QUINTERO [facility] Start: 11-07-2016 End: 11-08-2016 Ambulatory [facility] Start: 12-13-2014 Patient encounter DESIRE MOREJON [facility] Procedures Date Procedure Procedure Detail Performing Clinician [...] Surgery: [id number] Result Comment: PERF ORMED BY: [facility] [address] [place] [address] PATHOLOGIST PEST CONTROLLER KOMAL COFFMAN M.D. Start: 11-19-2023 Methicillin resistan [...] Screening for malign ant neoplasm of colon [facility] Start: 09-14-2025 End: 09-14-2025 Patient encounter procedure 09/14/2025 10:15 AM EDT Office Visit [facility] [address] [place] [address] Angela Linda MD [address] [place], [place] [id number] [facility] Start: 09-09-2025 Screening for malign ant neoplasm of breast Mammogram [facility] Start: 07-28-2025 End: 07-28-2025 Patient encounter procedure 07/28/2025 9:30 AM EDT Office Visit [facility] [address] [address] Niocle Hawkins DO [address] [address] [facility] Start: 01-24-2025 Screening for malign ant neoplasm of colon [facility] Start: 12-27-2024 Influenza vaccination Influenz a Vaccine (Season Ended) [facility] Start: 09-14-2024 End: 09-14-2024 Patient encounter procedure [facility] Comment on above: Arrived Start: 08-28-2024 Screening for malign ant neoplasm of breast Mammogram [facility] Start: 08-26-2024 [facility] Start: 07-27-2024 End: 07-27-2024 Patient encounter procedure 07/27/2024 11:15 AM EDT Office Visit [facility] [address] [id number] Nicole Hawkins DO [address] [address] [facility] Start: 05-20-2024 End: 05-20-2024 Patient encounter procedure 05/20/2024 2:00 PM EST Office Visit [facility] [address] [place] [address] [facility] Start: 05-04-2024 End: 05-04-2024 Clinical Support 05/04/2024 1:30 PM EST Clinical Support [facility] [address] [place] [address] Sheryl Cooper, [facility] [address] [place] [address] Arrived [facility] Comment on above: Arrived Start: 02-24-2024 Plain X-ray of right hip XR hi p RT min 2V(w/wo pelvis)* [facility] Start: 02-24-2024 XR Hip - right 2 Views [facility] Start: 01-21-2024 Plain X-ray of right hip XR hi p RT min 2V(w/wo pelvis)* [facility] Start: 01-21-2024 XR Hip - right 2 Views [facility] Start: 01-05-2024 [facility] Start: 01-05-2024 Hospital admission [facility] Start: 01-05-2024 Plain X-ray of right hip XR lo w pelvis w/RT x-table hip [facility] Start: 01-05-2024 XR Hip - right GE 2 Views [facility] Start: 01-05-2024 [facility] Start: 01-05-2024 Physical therapy procedure [facility] Start: 12-28-2023 Influenza vaccination Influenza Vacc ine (#1) [facility] Start: 12-22-2023 [facility] Start: 11-19-2023 MRSA Culture MRSA Culture [facility] Start: 11-19-2023 Methicillin resistan t Staphylococcus aureus [Presence] in Unspecified specimen by Organism specific culture [facility] Start: 11-19-2023 [facility] Start: 09-15-2023 Bacteria identified in Urine by Culture [facility] Start: 09-15-2023 [facility] Start: 06-13-2023 Plain X-ray of right hip XR hi p RT min 2V(w/wo pelvis)* [facility] Start: 06-13-2023 XR Hip - right 2 Views [facility] Start: 11-27-2021 DEXA SCAN DEXA SCAN [facility] Work Phone: Start: 05-23-2020 End: 05-23-2020 Office Visit 05/23/2020 Office Visit Orthopaedics Chito Land MD [address] [place] [address] [phone] [facility] Start: 05-02-2020 End: 05-02-2020 Office Visit 05/02/2020 Office Visit OrthopaedicChito Ragsdale MD [address] [place] [address] [facility] Start: 12-28-2019 Influenza vaccination INFLUENZA VACC INE (#1) [facility] Start: 12-28-2019 Influenza vaccinatio n given Sequential Influenza Vaccine (#1) [facility] Start: 10-07-2019 Pneumococcal vaccination [facility] Start: 10-07-2019 Pneumococcal Vaccine : 65+ Years (1 of 1 - PCV) Pneumococcal Vaccine: 65+ Years (1 of 1 - PCV) [facility] Start: 03-12-2019 Protein mass conc MAMMOGRAM SC REENING DISCUSSION [facility] Work Phone: Start: 03-12-2019 Screening mammography MAMMOGRA M SCREENING DISCUSSION [facility] Start: 05-11-2018 End: 05-11-2018 Ambulatory 05/11/2018 Office Visit Family Medicine Payton James MD [address] [place] [address] [phone] [facility] Start: 03-30-2018 End: 03-30-2018 Ambulatory [facility] Comment on above: Arrived Start: 12-27-2017 Influenza vaccination SEQUENTI AL INFLUENZA VACCINE (#1) [facility] Start: 12-05-2017 End: 12-05-2017 Ambulatory 12/05/2017 Office Visit Orthopedic Surgery Isidro Birch MD [address] [place] [address] [facility] Start: 11-07-2017 End: 11-07-2017 Ambulatory 11/07/2017 Office Visit [place] [address] [place] [address] [phone] [facility] Start: 04-29-2017 Protein mass conc MAMMOGRAM SC REENING DISCUSSION [facility] Work Phone: Start: 04-29-2017 Screening for malign ant neoplasm of cervix [facility] Work Phone: Start: 03-25-2017 Screening mammography [facility] Start: 03-05-2017 History and physical examination, annual for health maintenance Wellness Visit [facility] Start: 01-25-2016 Colonoscopy COLORECTAL CAN CER SCREENING DISCUSSION [facility] Start: 01-25-2016 Protein mass conc COLON CANCER SCREENING DISCUSSION [facility] Start: 12-14-2015 Screening for malign ant neoplasm of colon [facility] Start: 2014 Zoster vaccine hzv l esteban for subcutaneous use ZOSTER VACCINE [facility] Start: 2004 Administration of he rpes zoster vaccine Zoster Vaccines (1 of 2) [facility] Start: 2004 Colonoscopy COLON CANCER S CREENING DISCUSSION [facility] Start: 2004 Pneumococcal Vaccine : 65+ Years (1 of 1 - PCV) Pneumococcal Vaccine: 65+ Years (1 of 1 - PCV) [facility] Start: 2004 Protein mass conc COLON CANCER SCREENING DISCUSSION [facility] Work Phone: Start: 2004 Screening for malign ant neoplasm of colon [facility] Start: 2004 Zoster vaccine hzv l esteban for subcutaneous use ZOSTER (SHINGLES) VACCINE (1 of 2) [facility] Start: 1994 Fasting lipid profile LIPID SCREENIN G [facility] Work Phone: Start: 1973 Third diphtheria, tetanus and acellular pertussis (DTaP) vaccination TDAP (ADULT) [facility] Work Phone: Start: 1972 Hepatitis C antibody , confirmatory test Hepatitis C Screening [facility] Start: 1972 Tetanus vaccination TETANUS [facility] Work Phone: Start: 1970 COVID-19 Vaccine (1 of 2) COVID-19 Vaccine (1 of 2) [facility] Start: 1969 HIV screening HIV Screening [facility] Start: 10-07-1967 HIV screening HIV SCREENING DISCUSSION [facility] Work Phone: Start: 1954 Fall risk assessment Falls Risk Asse ssment [facility] Start: 1954 Screening for malign ant neoplasm of colon [facility] Start: 1954 End: 1954 Hepatitis C antibody, confirmatory test HEPATITIS C VIRUS SCREENING [facility] Work Phone: Start: 1954 HEPATITIS C SCREENING HEPATITIS C SC GHISLAINE [facility] Start: 1954 Screening for malign ant neoplasm of cervix PAP SMEAR [facility] Auditory function tests Auditory function tests Audiology Routine 05/04/2024 1:36 PM [facility] [employer] Work Phone: Bacteria identified in Urine by Culture [facility] Comprehensive metabo lic 1999 panel - Serum or Plasma [facility] Comprehensive metabo lic 1999 panel - Serum or Plasma [facility] Comprehensive metabo lic 1999 panel - Serum or Plasma [facility] Cotinine [Mass/volum e] in Serum or Plasma [facility] DBT Breast - bilater al screening Bilateral screening mammogram with tomosynthesis Imaging Routine Other screening mammogram Ordered: 07/27/2024 [facility] [employer] Work Phone: Comment on above: Ordered: 07/27/2024 Glucose measurement estimated from glycated hemoglobin [facility] Hemoglobin [Mass/vol ume] in Blood [facility] End: 03-12-2018 MG Breast Views MAMMO SCREENING BILATERAL Routine Screening for breast cancer 1 Occurrences starting 03/12/2018 until 03/12/2018 [facility] Work Phone: Comment on above: 1 Occurrences starti ng 03/12/2018 until 03/12/2018 MG Breast Views MAMMO SCREENING BILATERAL Routine Screening for breast cancer 03/12/2018 1:05 PM EST [facility] Work Phone: Nicotine [Mass/volum e] in Serum or Plasma [facility] Patient Education Know your Meds [facility] Work Phone: End: 04-27-2020 Radiography of hip XR HIP WITH PELVIS RIGHT Imaging Routine Right hip pain 1 Occurrences starting 04/27/2020 until 04/27/2020 [facility] Comment on above: 1 Occurrences starti ng 04/27/2020 until 04/27/2020 Radiography of hip XR HIP WITH P JEFF RIGHT Imaging Routine Right hip pain 04/27/2020 9:13 AM EST [employer] [employer] [facility] Urine culture [facility] US Thyroid gland [facility] End: 10-08-2017 XR Wrist Right 3+ Views (Standard) XR Wrist Right 3+ Views (Standard) Routine Left wrist pain Once for 1 Occurrences starting 10/08/2017 until 10/08/2017 [facility] XR Wrist Right 3+ Vi ews (Standard) XR Wrist Right 3+ Views (Standard) Routine Left wrist pain 10/08/2017 2:17 PM EDT [facility] Immunizations Immunization Date Immunization Notes Care Provider Alexia tracey 01-29-2021 COVID-19 mRNA, Comirnaty (Pfizer) DO Karen Cardoso Work Phone: [facility] 07-18-2020 COVID-19 Vaccine Pfi zer - Documentation Purposes Only Karen Cardoso Other [facility] 06-26-2020 COVID-19 Vaccine Pfi zer - Documentation Purposes Only Karen Cardoso Other [facility] 03-03-2018 influenza virus vaccine, unspecified formulation [facility] 03-10-2017 diphtheria, tetanus toxoids and acellular pertussis vaccine, unspecified formulation Annmarie [facility] 03-10-2017 tetanus toxoid, redu jim diphtheria toxoid, and acellular pertussis vaccine, adsorbed [facility] 08-26-2013 tetanus toxoid, redu jim diphtheria toxoid, and acellular pertussis vaccine, adsorbed [facility] 01-26-2010 zoster vaccine, live DO Ronak Cardoso Work Phone: [facility] 02-19-1993 influenza virus vaccine, unspecified formulation Sheryl Cooper [facility] Work Phone: [facility] Payers Date Payer Category Payer Medicare (Managed Care) [facility] MEDICARE ADVANTAGE [id number] 2017 Medicare MEDICARE ANTHEM HMO OR PPO MEDICARE ANTHEM HMO OR PPO xxxxxxxxxxxx 2017-Present [id number] 2017 Medicare [id number] 2015 Medicare [id number] 1959 Medicare [id number] 1959 Self-pay [id number] 1954 Unknown [id number] 2.840.1.134233.3.579.2. 983 1954 Unknown [id number] 2.16.840.1.756512.3.579.2. 903 1954 Unknown [id number] 2..840.1.806403.3.579.2. 593 1954 Unknown [id number] 2.16.840.1.631369.3.579.2. 593 1954 Unknown [id number] 2.16840.1.088330.3.579.2. 593 1954 Unknown [id number] 2.16.840.1.720447.3.579.2. 1259 1954 Unknown [id number] 2.16.840.1.960297.3.579.2. 1259 1954 Unknown [id number] 2.16.840.1.644412.3.579.2. 1259 1954 Unknown [id number] 2.16840.1.939942.3.579.2. 1259 1954 Unknown [id number] 2.16.840.1.587122.3.579.2. 1259 1954 Unknown [id number] 2.16.840.1.554162.3.579.2. 1259 Unknown [facility] [id number] Unknown [id number] 2.16.840.1.321964.3.579.2. 593 Unknown [id number] 2.16.840.1.562037.3.579.2. 593 Unknown [id number] 2.16.840.1.442909.3.579.2. 593 Unknown [id number] 2.16840.1.739793.3.579.2. 531 Unknown [id number] 2.840.1.308154.3.579.2. 531 Unknown [id number] 2.16840.1.057883.3.579.2. 531 Unknown [id number] 2.16.840.1.736593.3.579.2. 531 Unknown [id number] 2.16.840.1.500170.3.579.2. 531 Unknown [id number] 2.840.1.303698.3.579.2. 531 Unknown [id number] 2.840.1.724503.3.579.2. 531 Unknown [id number] 2.840.1.853177.3.579.2. 531 Unknown [id number] 2.840.1.408182.3.579.2. 531 Unknown [id number] 2.840.1.228137.3.579.2. 531 Social History Date Type Detail Facility Start: 10-08-2017 End: 01-05-2024 Tobacco smoking status WYIS Never smoker [facility] Start: 1955 Sex Assigned At Not on file [facility] Start: 03-03-2018 Alcohol Comment 2 beers a week [facility] Start: 04-27-2020 End: 06-23-2023 Tobacco use and exposure Never used [facility] Start: 12-05-2017 End: 04-27-2020 Alcohol intake Current drinker of alcohol (finding) [facility] Start: 09-25-2016 Alcohol Comment [facility] [facility] Start: 09-09-2023 End: 09-14-2024 Sex Assigned At [facility] Other Start: 1955 Sex Assigned At Female [facility] Start: 09-09-2023 End: 09-14-2024 Alcoholic beverage intake Ex-drinker (finding) [facility] Start: 09-09-2023 End: 09-14-2024 History of Social function [facility] Start: 06-23-2023 Alcohol Comment caffeine intak e: 1-2 cups per day [facility] Start: 06-16-2024 End: 10-02-2024 Sex Female (finding) [facility] NEGATED: Highlighted row [facility] Medical Equipment Procedure Code Equipment Code Equipment Origin al Text Equipment Identifier Dates Arthroplasty, hip, total, anterior approach Acetabular shell [id number] FDA Start: 01-05-2024 Arthroplasty, hip, total, anterior approach Orthopaedic bone screw, non-bioabsorbable, sterile ()[id number] FDA Start: 01-05-2024 Arthroplasty, hip, total, anterior approach Orthopaedic bone screw, non-bioabsorbable, sterile ()[id number] FDA Start: 01-05-2024 Arthroplasty, hip, total, anterior approach Orthopaedic bone screw, non-bioabsorbable, sterile ()[id number] FDA Start: 01-05-2024 Arthroplasty, hip, total, anterior approach Ceramic femoral head prosthesis ()[id number] FDA Start: 01-05-2024 Arthroplasty, hip, total, anterior approach Coated hip femur prosthesis, modular ()[id number] FDA Start: 01-05-2024 Arthroplasty, hip, total, anterior approach Non-constrained polyethylene acetabular liner ()[id number] FDA Start: 01-05-2024 Goals Date Patient Goal Desired Activity /State Clinical Notes 06-11-2021 to 10-01-2024 Angela Linda MD - 09/14/2024 10:35 AM EDT Note Date & Type Note Facility 10-01-2024 Nuclear medicine Diagnostic study note [facility] [place] [address] Nuclear Medicine Report Signed Patient: Antonino Torres MR#: [id number] : 1955 Acct:[id number] Age/Sex: 68 / F ADM Date: 5 Loc: [place] Room: Type: [facility] Attending Dr: Lay Alvarez MD Copies to: [...] MD 10/01/24 1623 Signed By: 10/01/24 1624 [facility] Work Phone: 09-14-2024 History of Present illness [...] 3. INFLAMMATORY PAPULE Right Forearm - Anterior [place] papule Favoring benign lesion. Will give lesion [...] Visit: 1 year documented in this encounter [facility] 08-26-2024 Evaluation note Diagnosis Onset Date Resolution Atypical chest pain acute August 262024 1:01pm Bipolar depression acute August 1:01pm Hyperglycemia acute August 26 1:01pm Hyperlipidemia acute August 26 025 1:01pm Osteoporosis without current pathological fracture acute August 26, 2024 1: 01pm [facility] Work Phone: 1(739) 746-858002-19-2025 Evaluation note* Diagnosis Onset Date Resolution Status [...] fracture acute August 26 2 025 1:01pm [facility] Work Phone: 1(538) 645-731202-19-2025 Evaluation note* Diagnosis Onset Date Resolution Status [...] current pathological fracture acute August 26, 1:01pm [facility] Work Phone: 1(487) 973-259301-23-2025 History of Present illness Narrative* Sharon Zhou [...] hearing aids. 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 She was happy with sound settings and requested no changes. Patient does not use a phone with her aids. We reviewed use of the volume control on the hearing aid. Patient prefers to call as needed for follow ups. Cosigned by OZZIE Rivas at 05/20/2024 2:58 PM EST documented in this encounterS[facility] [id number] History of Present illness Narrative* OZZIE Rivas [...] not arrive in time. documented in this encounterSac-[facility] [id number] Evaluation note* Diagnosis Onset Date Resolution Status [...] 9:06am Thyroid nodule acute May 292024 9:06am [facility] Work Phone: 1(434) 357-979008-16-2024 Evaluation note* Author Karen Cardoso [facility] Authored December 12, 2023 10 :00am The above note written by __ _Lina Bay____ acting as human recorder, note dictated by Dr. Armijo .I performed the above HPI, ROS, and Examination. I formulated and dictated the treatment plan and was present for entire encounter. Karen Cardoso D.O. [facility] Work Phone: 1(298) 384-406405-20-2024 Evaluation note* Author Karen Cardoso [facility] Authored September 15, 2023 2:26p m The above note written by __ _Lina Bay____ acting as human recorder, note dictated by Dr. Armijo .I performed the above HPI, ROS, and Examination. I formulated and dictated the treatment plan and was present for entire encounter. Karen Cardoso D.O. [facility] Work Phone: 1(815) 409-858602-29-2024 Evaluation note* Author [facility] Authored June 26, 2023 10:58am The above note written by __ _Lina Bay____ acting as human recorder, note dictated by Dr. Armijo .I performed the above HPI, ROS, and Examination. I formulated and dictated the treatment plan and was present for entire encounter. Karen Cardoso D.O. [facility] Work Phone: 1(288) 583-123302-29-2024 Evaluation note* Author Karen [facility] Authored June 26, 2023 10:58am The above note written by __ _Lina Bay____ acting as human recorder, note dictated by Dr. Armijo .I performed the above HPI, ROS, and Examination. I formulated and dictated the treatment plan and was present for entire encounter. Karen Cardoso D.O. Author Karen [facility] Authored September 15, 2023 2:26p m The above note written by __ _Lina Bay____ acting as human recorder, note dictated by Dr. Armijo .I performed the above HPI, ROS, and Examination. I formulated and dictated the treatment plan and was present for entire encounter. Karen Cardoso D.O. [facility] Work Phone: 1([phone]) 670-221601-17-2024 Evaluation note* Encounter Date Diagnosis Assessment Notes [...] oral anti-inflammatorie s and Tylenol. Recommended utilizing [id number] oral anti-inflammatorie s. Recommended adjusting their Tylenol [...] injection well. 5. Follow up as needed [facility] Other 09-14-2023 Evaluation note* Encounter Date Diagnosis Assessment Notes Treatment Notes Treatment Clinical Notes Dec, Bipolar depression (ICD-10 - F31.9) [facility] Other 08-18-2023 Evaluation note* Encounter Date Diagnosis Assessment Notes Treatment Notes Treatment Clinical Notes Nov, Bipolar depression (ICD-10 - F31.9) Nov, Hyperlipidemia (ICD-10 - E78.5) [facility] Other 08-17-2023 Evaluation note* Encounter Date Diagnosis [...] that she was seeing a lady at [facility] and [facility] but has not seen her in [...] Weight loss (ICD-10 - R63.4) Nov, Other shelter (current) drug therapy (ICD-10 - Z79.899) [facility] Other 03-17-2023 Evaluation note* Encounter Date Diagnosis [...] consider looking at her hip joint further. [facility] Other 02-16-2023 Evaluation note* Encounter Date Diagnosis [...] hip She would like to see an video conference specialist for her right hip. She had [...] her white blood cell count. May, Other shelter (current) drug therapy (ICD-10 - Z79.899) May, Bipolar depression (ICD-10 - F31.9) Continue with specialist as directed. May, Other I did provide h er with a lab order today to have labs drawn prior to her appointment in November (2022). If she decides to have outreach lab drawn through the [facility] she should call and we will give her an order for just an AST/ALT. We discussed how much Calcium she should be taking, I did recommend she take 2620-2153 daily. Recommend Calcium Citrate. [facility] Other 11-09-2022 Evaluation note* Encounter Date Diagnosis Assessment Notes Treatment Notes Treatment Clinical Notes Feb, Hyperlipidemia (ICD-10 - E78.5) [facility] Other 10-18-2022 Evaluation note* Encounter Date Diagnosis [...] then we would refer her to a crew trainer. 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 [facility] Other 02-14-2022 NoteHISTORY: Bone density screening. COMPARISON: [...] signed by Trell Martin on 06/11/2021 1237[place] Medical SpecialistChief complaint+Reason for visit Narrative* Chief Complaint 2 MONTHS WANTS TO DI SCUSS SURGERY m16.11 z79.892 m81.0 review labs/medical clearance Hip pain Reason for Visit Primary osteoarthrit is of right hip Bipolar depression Encounter for pre-operative examination Hyperglycemia Hyperlipidemia Primary osteoarthritis of right hip Weight loss [facility] Work Phone: Chief complaint+Reason for visit Narrative* Chief Complaint 2 MONTHS WANTS TO DI SCUSS SURGERY m16.11 z79.899 m81.0 review labs/medical clearance Hip pain Preop - R JASON H&P RTHA Reason for Visit Primary osteoarthrit is of right hip Bipolar depression Encounter for pre-operative examination Hyperglycemia Hyperlipidemia Primary osteoarthritis of right hip Weight loss Primary osteoarthritis of right hip [facility] Work Phone: Chivx complaint+Reason for visit Narrative* Chief Complaint 2 MONTHS WANTS TO DI SCUSS SURGERY m16.11 z99.891 m81.0 review labs/medical clearance Hip pain Preop - R JASON H&P RTHA Prolonged Reason for Visit Primary osteoarthrit is of right hip Bipolar depression Encounter for pre-operative examination Hyperglycemia Hyperlipidemia Primary osteoarthritis of right hip Weight loss Primary osteoarthritis of right hip [facility] Work Phone: Chivz complaint+Reason for visit Narrative* Chief Complaint 2 MONTHS WANTS TO DI SCUSS SURGERY m16.11 z79.890 m81.0 review labs/medical clearance Hip pain Preop - R JASON H&P RTHA Prolonged BH Hip pain Hip pain Reason for Visit Primary osteoarthrit is of right hip Bipolar depression Encounter for pre-operative examination Hyperglycemia Hyperlipidemia Primary osteoarthritis of right hip Weight loss Primary osteoarthritis of right hip [facility] Work Phone: Chief complaint+Reason for visit [...] replacement surgery Status post right hip replacement [facility] Work Phone: Chief complaint+Reason for visit [...] replacement surgery Status post right hip replacement [facility] Work Phone: Evaluation noteNo InformationNort [email or web address] Other Evaluation noteNo assessment information available [facility] Work Phone: Evaluation note* Diagnosis Onset Date Resolution Status Greater trochanteric bursitis of right hip acute Primary osteoarthritis of right hip acute [facility] Work Phone: Evaluation note* Diagnosis Sensorineural [...] Dr. Wu 02/23/2020 Hospitalization History see above [facility] Other History general Narrative - Reported* Type [...] repeat in 202902/23/2020 Hospitalization History see above [facility] Other History of Present illness Narrative* Nicole [...] at this time. [facility] Up to date on Dexa. Colonoscopy [...] IS VERY IMPORTANT TO YOUR HEALTH. THE [employer] GUIDELINES RECOMMEND THATWOMEN 40 YEARS [...] mg by mouth at bedtime [DISCONTINUED] HYDROcodone-acetaminophen ([place]) 5-325 MG tablet Take 1 tablet by [...] fracture of right distal radius 10/09/2017 Depression ([facility]/HCC) History of hysterectomy for benign disease 06/23/2023 HLD (hyperlipidemia) ([facility]) Vaginal dryness 06/23/2023 Past Surgical History: Procedure [...] Additions if any: Chito Land MD, [facility] [employer] - [facility] * Rachna Hunter - [...] from the last injection. Chito Land MD, [facility] [employer] - [facility] * Corinne Shaffer - [...] findings. Additions if any: Chito Land MD, [facility]opedics [facility] Sports Medicine [employer] - [facility] * Corinne Shaffer - [...] MAMMO SCREENING BILATERAL Payton James MD [address] [place] [address] Reason appt 07/12/22 at 10am pt needs consult to discuss right hip pain Diagnosis 1 Hip pain (M25.559) Referral Organization [facility] [place] Referring Provider First Name Karen Referring Provider Last Name Walker Referring Provider Specialty Family Prac ernie Referred Organization [facility] Referred Provider Finn Ortez II Referred Address [address] [place],[address] Referred Provider Specialty Orthopedic S urgery Referral [...] 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) Referral Organization [facility] tre[facility] Sosa Referring Provider First Name Karen Referring Provider Last Name Walker Referring Provider Specialty Family Prac ernie Referred Organization [facility] Referred Address [address],[place], [place],[address] Referred Provider Specialty Neurology Referral Priority Routine [...] 1 Decreased hearing (H 91.90) Referral Organization [facility] Aly Sosa Referring Provider First Name Karen Referring Provider Last Name Walker Referring Provider Specialty [facility] ernie Referred Organization [facility] Referred Address ,[place], [place],[address] Referred Provider Specialty Audiologists Referral Priority Routine [...] section and content) DATE CREATED AUTHOR 10/20/2017 [facility] DATE CREATED AUTHOR AUTHOR'S ORGANIZ ATION 10/24/2017 [facility] DATE CREATED AUTHOR AUTHOR'S ORGANIZ ATION 11/12/2017 [facility] DATE CREATED AUTHOR AUTHOR'S ORGANIZ ATION 11/12/2017 [facility] DATE CREATED AUTHOR AUTHOR'S ORGANIZ ATION 12/20/2017 [facility] DATE CREATED AUTHOR AUTHOR'S ORGANIZ ATION 04/06/2018 [facility] DATE CREATED AUTHOR AUTHOR'S ORGANIZ ATION 07/30/2018 [facility] DATE CREATED AUTHOR AUTHOR'S ORGANIZ ATION 02/10/2021 [facility] DATE CREATED AUTHOR AUTHOR'S ORGANIZ ATION 06/11/2021 [facility] DATE CREATED AUTHOR AUTHOR'S ORGANIZ ATION 08/28/2022 [facility] [place] [facility] DATE CREATED AUTHOR AUTHOR'S ORGANIZ ATION 09/15/2024 [facility] EPIC DATE CREATED AUTHOR AUTHOR'S ORGANIZ ATION 11/05/2024 [facility] Reason for Visit (unrecogniz ed section and content) Reason Comments Medication Management Reason Comments Medication Refill Reason Comments Prescription Clarification Status Reason Specialty Diagnoses / Procedures Referre d By Contact Referred To Contact Closed Diagnoses Screening for breast cancer Procedures MAMMO SCREENING BILATERAL Payton James MD [address] [place] [id number] Reason Comments Depression Antonino feels pretty g ood. Holidays didn't affect her too much. Overall she feels pretty level. Reason Comments Joint Injection Reason Comments Pain Follow-up Reason Comments Ear Pain Reason Comments Pain Right hip pain Reason Comments Gynecologic Exam Patient here for yea rly. Denies any problems at this time. [facility]. Up to date on Dexa. Colonoscopy [...] 2024 Finn Ortez II, MD Attending Provi aiyln, Other Provider Active Start: January 05, 2024 [...] Attending Provider Active Start: January 21, 2024 Data Technical Lead Relationship Specialty Start Date End Date Karen Cardoso MD [address] [place] [address] PCP - General Family Medicine 04/15/23 Data Technical Lead Relationship Specialty Start Date End Date Karen Cardoso MD [address] [place] [address] PCP - General Family Medicine 04/15/23 Data Technical Lead Relationship Specialty Start Date End Date Karen Cardoso MD [address] [place] [address] PCP - General Family Medicine 04/15/23 Data Technical Lead Relationship Specialty Start Date End Date Karen Cardoso MD [address] [place] [address] PCP - General Family Medicine 04/15/23 Data Technical Lead Relationship Specialty Start Date End Date Karen Cardoso MD [address] [place] [address] [place] [address] PCP - General Family Medicine 04/15/23 Data Technical Lead Relationship Specialty Start Date End Date Karen Cardoso MD [address] [place] [address] [place] [address] PCP - General Family Medicine 04/15/23 Team [...] BE BASED ON THE PRIMARY CLINICAL RECORDS. [facility]. provides no warranty or guarantee of the accuracy or completeness of information in this document.
[2024-12-16 11:00] LABS: Hematocrit 40.1 % (36.0-48.0); Hemoglobin 13.6 g/dL (12.0-16.0); Immature Granulocytes Abs Auto 0.01 10^3/uL (0.00-0.03); Immature Granulocytes Pct Auto 0.2 % (0.0-0.5); Lymphocytes Absolute Auto 1.5 10^3/uL (1.2-3.8); Mean Corpuscular HGB Conc 33.9 g/dL (29.9-35.2); Mean Corpuscular Hemoglobin 30.2 pg (26.7-34.0); Mean Corpuscular Volume 88.9 fL (81.0-99.0); Platelet Count 289 10^3/uL (150-450); Red Blood Count 4.51 10^6/uL (4.20-5.40); White Blood Count 5.7 10^3/uL (4.0-11.0)
[2024-12-16 11:26] LABS: Alanine Aminotransferase 24 U/L (14-59); Albumin Globulin Ratio 1.2; Albumin Level 3.9 g/dL (3.4-5.0); Alkaline Phosphatase 100 U/L (46-116); Anion Gap 8.6; Aspartate Amino Transferase 22 U/L (15-37); Blood Urea Nitrogen 11.0 mg/dL (7.0-18.0); Calcium 8.6 mg/dL (8.5-10.1); Carbon Dioxide 30.4 mmol/L (21.0-32.0); Chloride 109 mmol/L (98-107); Cholesterol 188 mg/dL (<=200); Estimated GFR (African America >60 (>=60 mL/min/1.73m^2); Estimated GFR (Non-African Ame >60 (>=60 mL/min/1.73m^2); Globulin 3.3 g/dL; Glucose 93 mg/dL (74-106); HDL Cholesterol 58 mg/dL (40-60); Potassium 4.0 mmol/L (3.5-5.1); Sodium 144 mmol/L (136-145); Thyroid Stimulating Hormone 1.714 uIU/mL (0.358-3.740); Total Protein 7.2 g/dL (6.4-8.2); Triglycerides 136 mg/dL (<=150); VLDL CHOLESTEROL 27.2 mg/dL
== END 2024-12-16 09:43 | disposition home or self-care (01) ==
LOC: LAB 09:43
PROVIDERS: PCP Family Medicine; Visit Provider Family Medicine
DX: Z79.899 Other long term (current) drug therapy (principal); R73.9 Hyperglycemia, unspecified; R63.4 Abnormal weight loss; E78.5 Hyperlipidemia, unspecified
CPT/HCPCS: 36415; 80053; 80061; 83036; 84443; 85025